=== PATIENT | female | born 1940 | race Caucasian/White ===

== ENCOUNTER → 2017-05-25 07:30 | Outpatient (CLI) | payer MEDICARE, SELFPAY ==
[2017-05-25 08:02] LABS: Hematocrit 37.3 % (37-47); Mean Corp Hgb Conc 32.2 g/gl (32-36); Mean Corpuscular Volume 96.4 fL (81-99); Mean Platelet Vol. 9.9 fl (6.2-12.0); Platelet Count 248 K/mm3 (150-450); RBC Distribution Width CV 14.9 % (11.6-14.6); RBC Distribution Width SD 50.6 fl (35.1-43.9); Red Blood Count 3.87 M/mm3 (4.2-5.4); White Blood Count 5.7 K/mm3 (4.4-11.0)
[2017-05-25 08:03] LABS: Scan Indicated on CBC? Y/N NO
[2017-05-25 08:14] LABS: Microalbumin,Random Urine 6.2 mg/L (NO RANGE EST.); Microalbumin:Creatinine Ratio 11.9 mg/g CRE (<30 mg/g CRE)
[2017-05-25 08:21] LABS: Cholesterol 111 mg/dL (200); High Density Lipoprotein 66 mg/dL; Triglycerides 55 mg/dL; Very Low Density Lipoprotein 11 mg/dL (5-40)
[2017-05-25 14:06] LABS: Hemoglobin A1c 7.3 % (4.2-6.3)
== END ==
PROVIDERS: Family Provider Student in an Organized Health Care Education/Training Program; PCP Student in an Organized Health Care Education/Training Program; Visit Provider Student in an Organized Health Care Education/Training Program
DX: Z79.899 Other long term (current) drug therapy (principal)
CPT/HCPCS: 36415; 80061; 82043; 82570; 83036; 85027

== ENCOUNTER → 2017-06-19 14:11 | Outpatient (CLI) | payer MEDICARE, SELFPAY ==
[2017-06-19 15:14] LABS: Hemoglobin A1c 7.2 % (4.2-6.3)
[2017-06-19 15:23] LABS: ALB/GLOB Ratio 0.9 RATIO (0.9-2.4); AST(SGOT) 20 U/L (15-37); Alanine Aminotransfer ALT/SGPT 19 U/L (13-56); Alkaline Phosphatase 87 U/L (45-117); Anion Gap 8 (5-15); BUN 24 mg/dL (7-18); BUN/Creat Ratio 23.5 RATIO (10-20); Calcium,Total 8.1 mg/dL (8.5-10.1); Chloride 108 mmol/L (98-107); Creatinine, Serum 1.02 mg/dL (0.55-1.02); EST Glomerular Filtration Rate 56 mL/min (>60); Est Glom Filt Rate - Afr Amer 68 mL/min (>60); Globulin 3.5 g/dL (2.2-4.2); Glucose 183 mg/dL (74-106); Potassium 4.1 mmol/L (3.5-5.1); Protein, Total 6.5 g/dL (6.4-8.2); Sodium Level 142 mmol/L (136-145); Thyroid Stim Hormone (TSH) 1.71 uIU/mL (0.358-3.74)
[2017-06-20 11:12] LABS: Cancer Antigen 125 369.4 U/mL (0.0-38.1)
== END ==
PROVIDERS: Nurse Practitioner; Family Provider Student in an Organized Health Care Education/Training Program; PCP Student in an Organized Health Care Education/Training Program; Visit Provider Obstetrics & Gynecology Gynecologic Oncology
DX: C56.1 Malignant neoplasm of right ovary (principal); C56.2 Malignant neoplasm of left ovary; E11.9 Type 2 diabetes mellitus without complications; E10.9 Type 1 diabetes mellitus without complications; E03.9 Hypothyroidism, unspecified
CPT/HCPCS: 36591; 80053; 83036; 84443; 86304; A4216

== ENCOUNTER → 2017-09-14 09:19 | Outpatient (CLI) | payer MEDICARE, SELFPAY ==
[2017-09-14 09:49] LABS: Absolute Lymphocyte Count 1.23 X10^3/ul (0.83-4.51); Absolute Neutrophil Count 3.2 X10^3/uL (2.0-7.7); Basophil# 0.02 X10^3/uL; Basophil% 0.4 % (0-1); Eosinophil# 0.13 X10^3/uL; Eosinophils% 2.6 % (0-5); Hemoglobin 12.3 g/dl (12.0-15.0); Lymphocyte # 1.23 X10^3/ul (4.0); Lymphocyte % 24.8 % (19-41); Mean Corp Hgb Conc 32.4 g/gl (32-36); Mean Corpuscular Hgb 31.4 pg (27.0-32.0); Mean Corpuscular Volume 96.9 fL (81-99); Mean Platelet Vol. 9.9 fl (6.2-12.0); Monocyte# 0.37 X10^3/uL; Monocyte% 7.5 % (0-10); Neutrophil % 64.5 % (47-70); Platelet Count 252 K/mm3 (150-450); RBC Distribution Width CV 14.6 % (11.6-14.6); RBC Distribution Width SD 49.8 fl (35.1-43.9); Red Blood Count 3.92 M/mm3 (4.2-5.4)
[2017-09-14 09:50] LABS: POSITIVE COUNT NO; POSITIVE DIFFERENTIAL NO; POSITIVE MORPHOLOGY NO
[2017-09-14 10:03] LABS: International Normalized Ratio 1.9; Prothrombin Time (Protime)PT. 21.5 SECONDS (11.7-14.9)
[2017-09-14 10:08] LABS: Hemoglobin A1c 6.8 % (4.2-6.3)
[2017-09-14 10:24] LABS: ALB/GLOB Ratio 0.8 RATIO (0.9-2.4); AST(SGOT) 19 U/L (15-37); Alanine Aminotransfer ALT/SGPT 18 U/L (13-56); Albumin, Serum 2.9 g/dL (3.2-5.0); Alkaline Phosphatase 82 U/L (45-117); Anion Gap 9 (5-15); BUN 18 mg/dL (7-18); BUN/Creat Ratio 17.8 RATIO (10-20); Calcium,Total 8.4 mg/dL (8.5-10.1); Chloride 110 mmol/L (98-107); Creatinine, Serum 1.01 mg/dL (0.55-1.02); EST Glomerular Filtration Rate 56 mL/min (>60); Est Glom Filt Rate - Afr Amer 68 mL/min (>60); Globulin 3.7 g/dL (2.2-4.2); Glucose 159 mg/dL (74-106); Magnesium 1.8 mg/dL (1.6-2.6); Potassium 4.1 mmol/L (3.5-5.1); Protein, Total 6.6 g/dL (6.4-8.2); Sodium Level 144 mmol/L (136-145)
[2017-09-14 12:45] LABS: Vitamin D,25 Hydroxy 106.9 ng/mL (29.95-100.01)
[2017-09-17 10:07] LABS: Cancer Antigen 125 44.3 U/mL (0.0-38.1)
== END ==
PROVIDERS: Nurse Practitioner; Family Provider Student in an Organized Health Care Education/Training Program; PCP Student in an Organized Health Care Education/Training Program; Visit Provider Student in an Organized Health Care Education/Training Program
DX: E10.9 Type 1 diabetes mellitus without complications (principal); E55.9 Vitamin D deficiency, unspecified; C56.1 Malignant neoplasm of right ovary; C56.2 Malignant neoplasm of left ovary; Z79.01 Long term (current) use of anticoagulants
CPT/HCPCS: 36591; 80053; 82306; 83036; 83735; 85025; 85610; 86304; A4216

== ENCOUNTER → 2017-10-12 09:20 | Outpatient (CLI) | payer MEDICARE, SELFPAY ==
[2017-10-12 09:52] LABS: Absolute Lymphocyte Count 1.22 X10^3/ul (0.83-4.51); Absolute Neutrophil Count 3.8 X10^3/uL (2.0-7.7); Basophil# 0.01 X10^3/uL; Basophil% 0.2 % (0-1); Eosinophil# 0.32 X10^3/uL; Eosinophils% 5.5 % (0-5); Hematocrit 38.3 % (37-47); Hemoglobin 12.1 g/dl (12.0-15.0); Lymphocyte # 1.22 X10^3/ul (4.0); Lymphocyte % 20.9 % (19-41); Mean Corp Hgb Conc 31.6 g/gl (32-36); Mean Corpuscular Hgb 30.6 pg (27.0-32.0); Mean Platelet Vol. 9.5 fl (6.2-12.0); Monocyte# 0.47 X10^3/uL; Neutrophil # 3.81 X10^3/uL (2.7-7.7); Neutrophil % 65.2 % (47-70); POSITIVE COUNT NO; POSITIVE DIFFERENTIAL NO; POSITIVE MORPHOLOGY NO; Platelet Count 200 K/mm3 (150-450); RBC Distribution Width CV 15.2 % (11.6-14.6); RBC Distribution Width SD 54.6 fl (35.1-43.9); Red Blood Count 3.95 M/mm3 (4.2-5.4); White Blood Count 5.8 K/mm3 (4.4-11.0)
[2017-10-12 10:25] LABS: ALB/GLOB Ratio 0.8 RATIO (0.9-2.4); AST(SGOT) 46 U/L (15-37); Alanine Aminotransfer ALT/SGPT 45 U/L (13-56); Albumin, Serum 2.8 g/dL (3.2-5.0); Alkaline Phosphatase 83 U/L (45-117); Anion Gap 6 (5-15); BUN 13 mg/dL (7-18); BUN/Creat Ratio 13.6 RATIO (10-20); Calcium,Total 8.5 mg/dL (8.5-10.1); Chloride 110 mmol/L (98-107); Creatinine, Serum 0.95 mg/dL (0.55-1.02); EST Glomerular Filtration Rate 60 mL/min (>60); Est Glom Filt Rate - Afr Amer 73 mL/min (>60); Globulin 3.6 g/dL (2.2-4.2); Glucose 110 mg/dL (74-106); Potassium 3.8 mmol/L (3.5-5.1); Protein, Total 6.4 g/dL (6.4-8.2); Sodium Level 147 mmol/L (136-145)
[2017-10-13 12:28] LABS: Cancer Antigen 125 34.3 U/mL (0.0-38.1)
== END ==
PROVIDERS: Family Provider Student in an Organized Health Care Education/Training Program; PCP Student in an Organized Health Care Education/Training Program
DX: C56.1 Malignant neoplasm of right ovary (principal); C56.2 Malignant neoplasm of left ovary
CPT/HCPCS: 36591; 80053; 83735; 85025; 86304; A4216

== ENCOUNTER → 2017-11-09 09:03 | Outpatient (CLI) | payer MEDICARE, SELFPAY ==
[2017-11-09 10:15] LABS: Absolute Lymphocyte Count 1.52 X10^3/ul (0.83-4.51); Absolute Neutrophil Count 4.9 X10^3/uL (2.0-7.7); Basophil# 0.02 X10^3/uL; Basophil% 0.3 % (0-1); Eosinophil# 0.28 X10^3/uL; Eosinophils% 3.9 % (0-5); Hematocrit 38.9 % (37-47); Hemoglobin 12.3 g/dl (12.0-15.0); Lymphocyte # 1.52 X10^3/ul (4.0); Mean Corp Hgb Conc 31.6 g/gl (32-36); Mean Corpuscular Hgb 29.9 pg (27.0-32.0); Mean Corpuscular Volume 94.6 fL (81-99); Mean Platelet Vol. 10.1 fl (6.2-12.0); Monocyte# 0.47 X10^3/uL; Monocyte% 6.5 % (0-10); Neutrophil # 4.93 X10^3/uL (2.7-7.7); Neutrophil % 68.2 % (47-70); Platelet Count 243 K/mm3 (150-450); RBC Distribution Width CV 15.2 % (11.6-14.6); RBC Distribution Width SD 52.5 fl (35.1-43.9); Red Blood Count 4.11 M/mm3 (4.2-5.4); White Blood Count 7.2 K/mm3 (4.4-11.0)
[2017-11-09 10:16] LABS: POSITIVE COUNT NO; POSITIVE DIFFERENTIAL NO; POSITIVE MORPHOLOGY NO
[2017-11-09 10:21] LABS: International Normalized Ratio 1.7; Prothrombin Time (Protime)PT. 20.1 SECONDS (11.7-14.9)
[2017-11-09 10:22] LABS: Color, Urine Yellow (Yellow); Glucose, Dipstick Normal (Normal); Ketone-Dipstick Negative (Negative); Leukocyte Esterase-Dipstick 25 /ul (Negative); Nitrite-Dipstick Negative (Negative); Occult Blood-Urine 50 /ul (Negative); Protein-Dipstick Negative (Negative); Specific Gravity, Urine 1.005 (1.002-1.030); Urine Bilirubin Dipstick Negative (Negative); Urine Clarity Clear (Clear); Urine Urobilinogen Normal (Normal)
[2017-11-09 10:32] LABS: ALB/GLOB Ratio 0.8 RATIO (0.9-2.4); AST(SGOT) 23 U/L (15-37); Alanine Aminotransfer ALT/SGPT 26 U/L (13-56); Alkaline Phosphatase 93 U/L (45-117); Anion Gap 7 (5-15); BUN 19 mg/dL (7-18); BUN/Creat Ratio 21.3 RATIO (10-20); Calcium,Total 8.6 mg/dL (8.5-10.1); Chloride 108 mmol/L (98-107); Creatinine, Serum 0.89 mg/dL (0.55-1.02); EST Glomerular Filtration Rate 65 mL/min (>60); Est Glom Filt Rate - Afr Amer 79 mL/min (>60); Globulin 3.9 g/dL (2.2-4.2); Glucose 93 mg/dL (74-106); Magnesium 1.7 mg/dL (1.6-2.6); Potassium 4.1 mmol/L (3.5-5.1); Protein, Total 6.9 g/dL (6.4-8.2); Sodium Level 144 mmol/L (136-145)
[2017-11-12 12:45] LABS: Cancer Antigen 125 33.4 U/mL (0.0-38.1)
== END ==
PROVIDERS: Family Provider Student in an Organized Health Care Education/Training Program; PCP Student in an Organized Health Care Education/Training Program; Visit Provider Nurse Practitioner Family
DX: C56.1 Malignant neoplasm of right ovary (principal); C56.2 Malignant neoplasm of left ovary; C48.2 Malignant neoplasm of peritoneum, unspecified
CPT/HCPCS: 36591; 80053; 81002; 83735; 85025; 85610; 86304; 87086; A4216

== ENCOUNTER → 2017-12-20 13:04 | Outpatient (CLI) | payer MEDICARE, SELFPAY ==
[2017-12-20 14:09] LABS: Absolute Lymphocyte Count 1.34 X10^3/ul (0.83-4.51); Absolute Neutrophil Count 4.8 X10^3/uL (2.0-7.7); Basophil# 0.02 X10^3/uL; Basophil% 0.3 % (0-1); Eosinophil# 0.27 X10^3/uL; Eosinophils% 3.9 % (0-5); Hematocrit 38.6 % (37-47); Hemoglobin 12.2 g/dl (12.0-15.0); Lymphocyte # 1.34 X10^3/ul (4.0); Lymphocyte % 19.4 % (19-41); Mean Corp Hgb Conc 31.6 g/gl (32-36); Mean Corpuscular Hgb 29.8 pg (27.0-32.0); Mean Corpuscular Volume 94.1 fL (81-99); Mean Platelet Vol. 10.7 fl (6.2-12.0); Monocyte# 0.51 X10^3/uL; Monocyte% 7.4 % (0-10); Neutrophil # 4.77 X10^3/uL (2.7-7.7); Neutrophil % 68.9 % (47-70); Platelet Count 264 K/mm3 (150-450); RBC Distribution Width SD 53.1 fl (35.1-43.9); White Blood Count 6.9 K/mm3 (4.4-11.0)
[2017-12-20 14:11] LABS: POSITIVE COUNT NO; POSITIVE DIFFERENTIAL NO; POSITIVE MORPHOLOGY NO
[2017-12-20 14:16] LABS: Color, Urine Yellow (Yellow); Glucose, Dipstick 50 mg/dl (Normal); Ketone-Dipstick Negative (Negative); Leukocyte Esterase-Dipstick 500 /ul (Negative); Nitrite-Dipstick Positive (Negative); Occult Blood-Urine 50 /ul (Negative); Protein-Dipstick 30 mg/dl (Negative); Urine Bilirubin Dipstick Negative (Negative); Urine Clarity Clear (Clear); Urine Urobilinogen 1 mg/dl (Normal)
[2017-12-20 14:27] LABS: International Normalized Ratio 1.7; Prothrombin Time (Protime)PT. 20.4 SECONDS (11.7-14.9)
[2017-12-20 14:32] LABS: Hemoglobin A1c 6.6 % (4.2-6.3)
[2017-12-20 14:33] LABS: Microalbumin,Random Urine 8.5 mg/L (NO RANGE EST.)
[2017-12-20 14:44] LABS: Vitamin D,25 Hydroxy 104.2 ng/mL (29.95-100.01)
[2017-12-20 14:46] LABS: ALB/GLOB Ratio 0.8 RATIO (0.9-2.4); AST(SGOT) 23 U/L (15-37); Alanine Aminotransfer ALT/SGPT 31 U/L (13-56); Alkaline Phosphatase 99 U/L (45-117); Anion Gap 6 (5-15); BUN 24 mg/dL (7-18); BUN/Creat Ratio 26.2 RATIO (10-20); Calcium,Total 8.6 mg/dL (8.5-10.1); Chloride 108 mmol/L (98-107); Creatinine, Serum 0.92 mg/dL (0.55-1.02); EST Glomerular Filtration Rate 63 mL/min (>60); Est Glom Filt Rate - Afr Amer 76 mL/min (>60); Globulin 3.8 g/dL (2.2-4.2); Glucose 142 mg/dL (74-106); Magnesium 1.8 mg/dL (1.6-2.6); Potassium 4.3 mmol/L (3.5-5.1); Protein, Total 6.8 g/dL (6.4-8.2); Sodium Level 141 mmol/L (136-145); Thyroid Stim Hormone (TSH) 0.76 uIU/mL (0.358-3.74)
[2017-12-25 11:35] LABS: Cancer Antigen 125 26.1 U/mL (0.0-38.1)
== END ==
PROVIDERS: Nurse Practitioner; Family Provider Student in an Organized Health Care Education/Training Program; PCP Student in an Organized Health Care Education/Training Program; Referring Provider Nurse Practitioner Family; Visit Provider Nurse Practitioner Family
DX: Z51.11 Encounter for antineoplastic chemotherapy (principal); E10.9 Type 1 diabetes mellitus without complications; E55.9 Vitamin D deficiency, unspecified; E03.9 Hypothyroidism, unspecified; I10 Essential (primary) hypertension; C48.2 Malignant neoplasm of peritoneum, unspecified; C56.1 Malignant neoplasm of right ovary; C56.2 Malignant neoplasm of left ovary
CPT/HCPCS: 36591; 80053; 81002; 82043; 82306; 82570; 83036; 83735; 84439; 84443; 85025; 85610; 86304; A4216

== ENCOUNTER → 2017-12-24 14:01 | Outpatient (CLI) | payer MEDICARE, SELFPAY ==
[2018-01-14 10:55] LABS: International Normalized Ratio 1.5; Prothrombin Time (Protime)PT. 18.3 SECONDS (11.7-14.9)
== END ==
PROVIDERS: Family Provider Student in an Organized Health Care Education/Training Program; PCP Student in an Organized Health Care Education/Training Program; Referring Provider Student in an Organized Health Care Education/Training Program; Visit Provider Student in an Organized Health Care Education/Training Program
DX: I26.99 Other pulmonary embolism 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 (principal); Z79.01 Long term (current) use of anticoagulants
CPT/HCPCS: 85610

== ENCOUNTER → 2017-12-31 14:18 | Outpatient (CLI) | payer MEDICARE, SELFPAY ==
[2017-12-31 16:02] LABS: Prothrombin Time (Protime)PT. 38.5 SECONDS (11.7-14.9)
[2017-12-31 16:24] LABS: International Normalized Ratio 3.9
== END ==
PROVIDERS: Family Provider Student in an Organized Health Care Education/Training Program; PCP Student in an Organized Health Care Education/Training Program; Referring Provider Student in an Organized Health Care Education/Training Program; Visit Provider Student in an Organized Health Care Education/Training Program
DX: I26.99 Other pulmonary embolism 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 (principal); Z79.01 Long term (current) use of anticoagulants
CPT/HCPCS: 85610

== ENCOUNTER → 2018-01-30 08:45 | Outpatient (CLI) | payer MEDICARE, SELFPAY ==
[2017-12-18 13:54] VITALS: BMI 33.1
[2018-01-30 09:34] LABS: Absolute Lymphocyte Count 1.76 X10^3/ul (0.83-4.51); Absolute Neutrophil Count 3.6 X10^3/uL (2.0-7.7); Basophil# 0.03 X10^3/uL; Basophil% 0.5 % (0-1); Eosinophil# 0.41 X10^3/uL; Eosinophils% 6.5 % (0-5); Hematocrit 38.1 % (37-47); Hemoglobin 12.2 g/dl (12.0-15.0); Lymphocyte # 1.76 X10^3/ul (4.0); Lymphocyte % 27.9 % (19-41); Mean Corpuscular Hgb 30.2 pg (27.0-32.0); Mean Corpuscular Volume 94.3 fL (81-99); Mean Platelet Vol. 10.4 fl (6.2-12.0); Monocyte# 0.49 X10^3/uL; Monocyte% 7.8 % (0-10); Neutrophil % 57.1 % (47-70); Platelet Count 266 K/mm3 (150-450); RBC Distribution Width CV 16.8 % (11.6-14.6); RBC Distribution Width SD 56.6 fl (35.1-43.9); Red Blood Count 4.04 M/mm3 (4.2-5.4); White Blood Count 6.3 K/mm3 (4.4-11.0)
[2018-01-30 09:36] LABS: Color, Urine Yellow (Yellow); Glucose, Dipstick Normal (Normal); Ketone-Dipstick Negative (Negative); Leukocyte Esterase-Dipstick 500 /ul (Negative); Nitrite-Dipstick Negative (Negative); Occult Blood-Urine 150 /ul (Negative); Protein-Dipstick 15 mg/dl (Negative); Urine Bilirubin Dipstick Negative (Negative); Urine Clarity Clear (Clear); Urine Urobilinogen Normal (Normal); Urine pH 6.5 (5.0 - 8.0)
[2018-01-30 09:44] LABS: ALB/GLOB Ratio 0.8 RATIO (0.9-2.4); AST(SGOT) 25 U/L (15-37); Alanine Aminotransfer ALT/SGPT 25 U/L (13-56); Albumin, Serum 2.8 g/dL (3.2-5.0); Alkaline Phosphatase 99 U/L (45-117); Anion Gap 7 (5-15); BUN 19 mg/dL (7-18); BUN/Creat Ratio 19.4 RATIO (10-20); Calcium,Total 8.3 mg/dL (8.5-10.1); Chloride 109 mmol/L (98-107); Creatinine, Serum 0.98 mg/dL (0.55-1.02); EST Glomerular Filtration Rate 58 mL/min (>60); Est Glom Filt Rate - Afr Amer 71 mL/min (>60); Globulin 3.7 g/dL (2.2-4.2); Glucose 112 mg/dL (74-106); Magnesium 1.8 mg/dL (1.6-2.6); POSITIVE COUNT NO; POSITIVE DIFFERENTIAL NO; POSITIVE MORPHOLOGY NO; Protein, Total 6.5 g/dL (6.4-8.2); Sodium Level 142 mmol/L (136-145)
[2018-01-30 10:04] LABS: International Normalized Ratio 2.8; Prothrombin Time (Protime)PT. 29.7 SECONDS (11.7-14.9)
[2018-01-31 08:29] LABS: Cancer Antigen 125 26.3 U/mL (0.0-38.1)
== END ==
PROVIDERS: Family Provider Student in an Organized Health Care Education/Training Program; PCP Student in an Organized Health Care Education/Training Program; Referring Provider Obstetrics & Gynecology Gynecologic Oncology; Visit Provider Obstetrics & Gynecology Gynecologic Oncology
DX: C48.2 Malignant neoplasm of peritoneum, unspecified (principal)
CPT/HCPCS: 36591; 80053; 81002; 83735; 85025; 85610; 86304; A4216

== ENCOUNTER → 2019-11-21 09:13 | Outpatient (CLI) | payer MEDICARE, SELFPAY ==
[2019-11-13 13:51] VITALS: BMI 32.5
[2019-11-21] MEDS: 0.9% Saline Lock 10 ML Syringe IV (09:27)
[2019-11-21] MEDS: 0.9 % NaCl (Sterile) Posiflush 10 mL IV (09:27)
[2019-11-21 09:46] LABS: Prothrombin Time (Protime)PT. 35.7 SECONDS (11.7-14.9)
[2019-11-21 09:53] LABS: International Normalized Ratio 3.6
== END ==
PROVIDERS: PCP Student in an Organized Health Care Education/Training Program; Referring Provider Nurse Practitioner Family; Visit Provider Nurse Practitioner Family
DX: I80.9 Phlebitis and thrombophlebitis of unspecified site (principal); Z79.01 Long term (current) use of anticoagulants
CPT/HCPCS: 36591; 85610; A4216

== ENCOUNTER → 2019-11-24 09:51 | Outpatient (CLI) | payer MEDICARE, SELFPAY ==
[2019-11-13 13:51] VITALS: BMI 32.5
[2019-11-24 10:06] LABS: Prothrombin Time Fingerstick 16.6 SEC (11.9-14.4)
== END ==
PROVIDERS: PCP Student in an Organized Health Care Education/Training Program; Referring Provider Student in an Organized Health Care Education/Training Program; Visit Provider Student in an Organized Health Care Education/Training Program
DX: I26.99 Other pulmonary embolism 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 (principal)
CPT/HCPCS: 36416; 85610

== ENCOUNTER → 2020-01-19 | Outpatient (CLI) | payer MEDICARE, SELFPAY ==
[2019-11-13 13:51] VITALS: BMI 32.5
[2020-01-19 11:48] LABS: Prothrombin Time (Protime)PT. 79.6 SECONDS (11.7-14.9)
[2020-01-19 13:03] LABS: International Normalized Ratio 9.7
== END | disposition home or self-care (01) ==
LOC: LABSPEC 11:25
PROVIDERS: PCP Student in an Organized Health Care Education/Training Program; Referring Provider Student in an Organized Health Care Education/Training Program; Visit Provider Student in an Organized Health Care Education/Training Program
DX: I26.99 Other pulmonary embolism 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 (principal)
CPT/HCPCS: 85610

== ENCOUNTER 2020-01-28 11:13 | Outpatient (RCR) | payer MEDICARE, SELFPAY ==
[2019-11-13 13:51] VITALS: BMI 32.5
[2020-01-21 12:11] LABS: Prothrombin Time (Protime)PT. 52.3 SECONDS (11.7-14.9)
[2020-01-21 12:21] LABS: International Normalized Ratio 5.8
[2020-01-23 12:36] LABS: Prothrombin Time Fingerstick 26.5 SEC (11.9-14.4)
[2020-01-28 11:21] LABS: Prothrombin Time Fingerstick 15.8 SEC (11.9-14.4)
== END 2020-01-28 18:00 | disposition home or self-care (01) ==
LOC: LAB 11:13
PROVIDERS: PCP Student in an Organized Health Care Education/Training Program; Visit Provider Student in an Organized Health Care Education/Training Program
DX: Z79.01 Long term (current) use of anticoagulants (principal)
CPT/HCPCS: 36415; 36416; 85610

== ENCOUNTER → 2020-03-15 | Outpatient (CLI) | payer MEDICARE, SELFPAY ==
[2020-02-12 11:05] VITALS: BMI 27.9
[2020-03-15 12:24] LABS: International Normalized Ratio 8.4
[2020-03-15 12:39] LABS: Prothrombin Time (Protime)PT. 70.5 SECONDS (11.7-14.9)
== END | disposition home or self-care (01) ==
LOC: LABSPEC 11:36
PROVIDERS: PCP Student in an Organized Health Care Education/Training Program; Referring Provider Student in an Organized Health Care Education/Training Program; Visit Provider Student in an Organized Health Care Education/Training Program
DX: I26.99 Other pulmonary embolism 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 (principal)
CPT/HCPCS: 85610

== ENCOUNTER → 2020-03-16 09:26 | Outpatient (CLI) | payer MEDICARE, SELFPAY ==
[2020-02-12 11:05] VITALS: BMI 27.9
[2020-03-16 09:47] LABS: International Normalized Ratio 6.5; Prothrombin Time (Protime)PT. 57.5 SECONDS (11.7-14.9)
== END ==
PROVIDERS: PCP Student in an Organized Health Care Education/Training Program; Referring Provider Student in an Organized Health Care Education/Training Program; Visit Provider Student in an Organized Health Care Education/Training Program
DX: I26.99 Other pulmonary embolism 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 (principal)
CPT/HCPCS: 85610

== ENCOUNTER 2020-04-08 15:50 | Outpatient (RCR) | payer MEDICARE, SELFPAY ==
[2020-02-12 11:05] VITALS: BMI 27.9
== END 2020-04-08 23:59 ==
LOC: IMMUN 15:50
PROVIDERS: PCP Student in an Organized Health Care Education/Training Program; Visit Provider Family Medicine
DX: Z23 Encounter for immunization (principal)
CPT/HCPCS: 0011A; 0012A; 91301

== ENCOUNTER → 2020-07-20 13:55 | Outpatient (CLI) | payer MEDICARE, SELFPAY ==
[2020-05-14 13:04] VITALS: BMI 28.2
== END ==
PROVIDERS: PCP Student in an Organized Health Care Education/Training Program; Referring Provider Nurse Practitioner Family; Visit Provider Nurse Practitioner Family
DX: C56.1 Malignant neoplasm of right ovary (principal); C56.2 Malignant neoplasm of left ovary; R97.1 Elevated cancer antigen 125 [CA 125]

== ENCOUNTER 2023-10-21 10:08 | Emergency (ER) | payer MEDICARE, SELFPAY ==
[2023-10-21 10:09] VITALS: BP 132/55; PULSE 83; RESP 16; TEMP 36.4; O2SAT 97; BMI 28.3
--- NOTE | 2023-10-21 10:54 | ED.VIS.LOWEX ---
HPI History of Present Illness HPI Narrative: Patient presents with right hip pain that has been getting worse over the past 3 days. Patient states that it she bumped her right hip on a door jam 1 to 2 weeks ago. Patient denies any recent trauma. Patient states her pain is gradually getting worse. Patient describes it as aching. Patient states it is worse with weightbearing. Patient denies any paresthesias or weakness. Patient states nothing seems to help with her pain. 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 Thyroid disease Carpal tunnel syndrome Cataracts, bilateral Cancer Hx of blood clots Bone fracture Back problem Arthritis Diabetes type 1, controlled Home Medications ?Medication ?Instructions ?Recorded ?Last Taken ?Type atorvastatin 10 mg tablet 10 mg PO DAILY 04/07/16 04/06/16 18:00 History 10 MG valsartan 80 mg tablet 80 mg PO DAILY 04/07/16 04/06/16 18:00 History 80 MG coenzyme Q10 200 mg capsule (Co 200 mg PO DAILY 08/21/19 Unknown History Q-10) vitamin B comp and C no.3 15 mg-10 1 cap PO DAILY 08/21/19 Unknown History mg-50 mg-5 mg-300 mg capsule (B Complex Plus Vitamin C) estradiol 0.01% (0.1 mg/gram) 1 g vaginal DAILY 05/14/20 Unknown History vaginal cream levothyroxine 112 mcg tablet 112 mcg PO DAILY 10/28/20 Unknown History ergocalciferol (vitamin D2) 1,250 50,000 unit PO QWEEK 01/16/22 Unknown History mcg (50,000 unit) capsule blood sugar diagnostic (Accu-Chek #100 ea 05/04/22 Unknown Rx Guide test strips) lancing device with lancets kit #100 ea 05/04/22 Unknown Rx (Accu-Chek FastClix Lancing Device kit) mecobalamin (vitamin B12) 10,000 mcg IM MONTHLY 09/18/22 Unknown History mcg solution for injection alcohol swabs (Alcohol Prep Pads) 1 pad topical DAILY #200 ea 03/19/23 Unknown Rx oxybutynin chloride 5 mg 5 mg PO DAILY 03/19/23 Unknown History tablet,extended release 24 hr warfarin 1 mg tablet 1 mg PO .WENFRI 03/19/23 Unknown History warfarin 2 mg tablet 2 mg PO DAILY 03/19/23 Unknown History Lyumjev U-100 Insulin 100 unit/mL 90 unit (0.9 mL) subcut DAILY #80 09/25/23 Unknown Rx subcutaneous solution (insulin mL lispro-aabc) metoprolol succinate 25 mg 25 mg PO DAILY 09/25/23 Unknown History tablet,extended release 24 hr tramadol 50 mg tablet 50 mg PO Q4H PRN PRN Pain 3 days 10/21/23 Unknown Rx #20 tabs Allergy/AdvReac Type Severity Reaction Status Date / Time acetaminophen (From Percocet) Allergy Unknown Verified 10/21/23 10:18 Anesthetics - Amide Type - Allergy NEEDS Verified 10/21/23 10:18 Select A FOLLOW-UP Anesthetics - Kalie Type- Allergy NEEDS Verified 10/21/23 10:18 Parabens FOLLOW-UP codeine Allergy Unknown Verified 10/21/23 10:18 meperidine (From Demerol) Allergy Unknown Verified 10/21/23 10:18 midazolam HCl (From Versed) Allergy Unknown Verified 10/21/23 10:18 oxycodone (From Percocet) Allergy Unknown Verified 10/21/23 10:18 Family History Mother Breast cancer Father Heart disease Surgical History H/O ultrasound guided needle biopsy S/P skin biopsy History of total abdominal hysterectomy H/O colonoscopy H/O umbilical hernia repair Hx of cataract surgery History of carpal tunnel surgery H/O: Hx of appendectomy History of tonsillectomy Social History Smoking Status: Former smoker second hand exposure: No alcohol intake: never substance use type: does not use ROS ROS ED Constitutional Constitutional ED: Denies chills or fever(s) Eyes Eyes: Denies blurry vision or change in vision ENT ENT ED: Denies rhinorrhea or sore throat Cardiovascular Cardiovascular: Denies chest pain or palpitations Respiratory/Chest Respiratory/Chest: Denies cough or dyspnea Gastrointestinal Gastrointestinal: Denies nausea or vomiting Genitourinary Genitourinary ED: Denies dysuria or hematuria Musculoskeletal Musculoskeletal: Reports neck pain; Denies back pain Integumentary Denies abscess or rash Neurologic Neurologic: Denies headache(s) or weakness Allergic/Immunologic Allergic/Immunologic ED: Denies mouth swelling or urticaria EXAM Physical Exam Const Vital Signs: 10/21/23 10:09 10/21/23 12:08 Temperature 97.6 F L Temperature Source Temporal Pulse Rate 83 89 Respiratory Rate 16 16 Blood Pressure 132/55 H 159/69 H Blood Pressure Mean 80 99 Pulse Ox 97 98 Oxygen Delivery Method Room Air Room Air Positive well nourished and well developed General Appearance ED: well developed and NAD HEENT Reports moist mucous membranes Neck full ROM and supple Extremity Extremity Narrative: There is tenderness to palpation of the anterior and lateral aspects of the right hip. There is no obvious deformity noted. Range of motion was limited in all motions of the right hip secondary to pain. Sensation was intact to light touch bilaterally in the lower extremities. Strength is 5/5 bilateral in the lower extremities. Neuro oriented x3, CN's II-XII intact bilaterally, moves all extremities and no sensory deficits noted Sensorium / Orientation: alert Motor Exam: strength 5/5 throughout Psych mental status grossly normal MDM MDM MDM Narrative Medical decision making narrative: Differential diagnosis includes occult fracture, muscle strain, tendinitis, and contusion. X-rays of the right hip will be obtained to assess for occult fracture. Radiography Diagnostic Testing: Clinical Impression(s) from Imaging Studies Hip/Pelvis X-Ray 10/21/23 10:59 IMPRESSION: Degenerative changes of the hips. Atherosclerosis. Electronically Signed: Ciera Sweeney MD at 11:36 EDT , X-rays of the right hip were obtained. There are 3 views. On my independent interpretation, there is no acute fracture. There are degenerative changes noted. Radiologist also interpreted the x-rays and agrees. Treatment and Re-Evaluation Narrative: Patient was ordered a dose of Crosby here. However, patient refused this. Patient has had intolerance with codeine and oxycodone in the past. Patient was given a dose of tramadol. Patient was given a prescription for tramadol. Patient was instructed to use ice to the area. Patient was instructed to use her walker. Patient was instructed to follow-up with her primary care physician in 5 to 7 days. Patient was also given a referral for orthopedics. The patient and family understood and were agreeable with the plan. All questions were answered. Discharge Plan Triage Chief Complaint: Lower Extremity Injury ED Provider: Dwight Gomez Dx/Rx/DC Orders Clinical Impression: Hip pain, right, Type 1 diabetes mellitus, with long-term current use of insulin Instructions: ED Arthralgia, ED Hip Strain Prescriptions: New tramadol 50 mg tablet 50 mg PO Q4H PRN PRN (Reason: Pain) 3 Days Qty: 20 0RF No Action warfarin 2 mg tablet 2 mg PO DAILY warfarin 1 mg tablet 1 mg PO .WENFRI coenzyme Q10 [Co Q-10] 200 mg capsule 200 mg PO DAILY B Complex Plus Vitamin C 77-53-41-5-300 mg capsule 1 cap PO DAILY Rx Instructions: give with food (meal/snack) estradiol 0.01 % (0.1 mg/gram) cream 1 g VAGINAL DAILY metoprolol succinate 25 mg tablet extended release 24 hr 25 mg PO DAILY levothyroxine 112 mcg tablet 112 mcg PO DAILY mecobalamin (vitamin B12) 10,000 mcg recon soln IM MONTHLY oxybutynin chloride 5 mg tablet extended release 24hr 5 mg PO DAILY alcohol swabs [Alcohol Prep Pads] Pads, Medicated 1 pad topical DAILY Qty: 200 3RF Lyumjev U-100 Insulin 100 unit/mL solution 90 unit subcut DAILY Qty: 80 3RF atorvastatin 10 MG tablet 10 mg PO DAILY Patient Comments: CHOLESTEROL valsartan 80 MG tablet 80 mg PO DAILY Patient Comments: Blood Pressure ergocalciferol (vitamin D2) 1,250 mcg (50,000 unit) capsule 50,000 unit PO QWEEK Patient Comments: Supplement (DME) Accu-Chek Guide test strips Strip See Rx Instructions .Route Qty: 100 11RF Rx Instructions: TID (DME) lancing device with lancets [Accu-Chek FastClix Lancing Dev] Kit See Rx Instructions .Route Qty: 100 11RF Rx Instructions: TID Primary Care Provider: Melchor Washington Referrals: Melchor Washington DO [Primary Care Provider] - Print Language: Georgian Disposition Disposition: Home, Self Care
--- NOTE | 2023-10-21 10:59 | RAD_ITS ---
INDICATION: Injury/Pain EXAMINATION/TECHNIQUE: X-RAY - XR Hip Unilateral with Pelvis when performed; 2-3 Views COMPARISON: No relevant prior comparison study available FINDINGS: PELVIC BONES: No displaced fracture, destructive or sclerotic lesions. Note that overlapping bowel shadows may however obscure fine detail. Sacroiliac joints are unremarkable. No widening of the pubic symphysis. HIPS: There are bilateral degenerative changes of the hips. SOFT TISSUES: There are vascular calcifications. RAD/HIP, UNI W/ Pelvis 2-3 Views IMPRESSION: Degenerative changes of the hips. Atherosclerosis. Electronically Signed: Ciera Sweeney MD at 11:36 EDT ,
[2023-10-21 12:08] VITALS: BP 159/69; PULSE 89; RESP 16; O2SAT 98
[2023-10-21] MEDS: traMADol 50 MG Tablet PO (12:57)
[2023-10-21 13:00] VITALS: BP 151/73; PULSE 82; RESP 16; TEMP 36.2; O2SAT 98
== END 2023-10-21 13:09 | disposition home or self-care (01) ==
PROVIDERS: Emergency Provider Emergency Medicine; PCP Student in an Organized Health Care Education/Training Program; Visit Provider Emergency Medicine
DX: M25.551 Pain in right hip (principal); Z79.4 Long term (current) use of insulin; E10.9 Type 1 diabetes mellitus without complications; E78.2 Mixed hyperlipidemia; Z87.891 Personal history of nicotine dependence; W22.09XA Striking against other stationary object, initial encounter; M54.2 Cervicalgia
CPT/HCPCS: 73502; 99283

== ENCOUNTER 2024-10-10 17:20 | Inpatient (IN) | payer MEDICARE, SELFPAY ==
[2024-10-10 17:21] VITALS: BP 133/58; PULSE 99; RESP 16; TEMP 36.9; O2SAT 100
--- NOTE | 2024-10-10 17:40 | EDS_ITS ---
HPI HPI - GI History of Present Illness Chief Complaint: Abd Pain Detail of Chief Complaint: Abdominal pain Informant: patient Narrative Narrative: Patient presents the emergency department complaint of abdominal pain is started 2 months ago. Patient states the pains got worse over the last week. She has had nausea. She had a CT scan of the abdomen pelvis done today as an outpatient and was called at home and told that she had some abnormalities that needed to be addressed that she needed to go to the emergency department at [facility]. Patient wanted to come to our facility instead and be treated. The daughter is not sure exactly what the abnormality was but said something about a blockage and possibility of decreased blood flow to the bowel or infection. Patient denies fever at home. She has had some intermittent diarrhea. She has had decreased p.o. intake with nausea. She also has history of peritoneal cancer with frequent recurrences and states that her CA125 keeps going up. She sees a specialist at [facility] for her peritoneal cancer. 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 Thyroid disease Carpal tunnel syndrome Cataracts, bilateral Cancer Hx of blood clots Bone fracture Back problem Arthritis Diabetes type 1, controlled Home Medications ?Medication ?Instructions ?Recorded ?Last Taken ?Type atorvastatin 10 mg tablet 10 mg PO DAILY 04/07/16/08/26 18:00 History 10 MG coenzyme Q10 200 mg capsule (Co 200 mg PO DAILY Unknown History Q-10) vitamin B comp and C no.3 15 mg-10 1 cap PO DAILY 08/10 03/31 Unknown History mg-50 mg-5 mg-300 mg capsule (B Complex Plus Vitamin C) levothyroxine 112 mcg tablet 112 mcg PO DAILY 10/28/20 Unknown History ergocalciferol (vitamin D2) 1,250 50,000 unit PO MOWE 01/16/22 Unknown History mcg (50,000 unit) capsule blood sugar diagnostic (Accu-Chek #100 ea 05/04/22 Unk nown Rx Guide test strips) lancing device with lancets kit #100 ea 05/04/22 Unkno wn Rx (Accu-Chek FastClix Lancing Device kit) mecobalamin (vitamin B12) 10,000 10,000 mcg IM MONTHLY 09/18/22 Unknown History mcg solution for injection alcohol swabs (Alcohol Prep Pads) 1 pad topical DAILY #200 ea 03/19/23 Unknown Rx warfarin 2 mg tablet 2 mg PO DAILY 03/19/23 Unkno wn History metoprolol succinate 25 mg 25 mg PO DAILY 09/25/23 Unk nown History tablet,extended release 24 hr valsartan 80 mg tablet 80 mg PO DAILY 04/03/24 Unkn own History insulin lispro-aabc 100 unit/mL See Rx Instructions lucio bcut DAILY 10/10/24 Unknown History subcutaneous solution (Lyumjev U-100 Insulin) Allergy/AdvReac Type Severity Reaction Status Date / Time acetaminophen (From Percocet) Allergy Unknown Verified 10/10/24 17:24 Anesthetics - Amide Type - Allergy NEEDS Verified 10/10/24 17:24 Select A FOLLOW-UP Anesthetics - Kalie Type- Allergy NEEDS Verified 10/10/24 17:24 Parabens FOLLOW-UP codeine Allergy Unknown Verified 10/10/24 17:24 meperidine (From Demerol) Allergy Unknown Verified 10/10/24 17:24 midazolam HCl (From Versed) Allergy Unknown Verified 10/10/24 17:24 oxycodone (From Percocet) Allergy Unknown Verified 10/10/24 17:24 Family History Mother Breast cancer Father Heart disease Surgical History H/O ultrasound guided needle biopsy S/P skin biopsy History of total abdominal hysterectomy H/O colonoscopy H/O umbilical hernia repair Hx of cataract surgery History of carpal tunnel surgery H/O: Hx of appendectomy History of tonsillectomy Social History Smoking Status: Former smoker second hand exposure: No alcohol intake: never substance use type: does not use ROS ROS ED Review of Systems ROS Unobtainable: other Constitutional Constitutional ED: Reports lethargy; Denies chills, fever(s), sweats or weight loss Eyes Eyes: Denies blurry vision, change in vision or diplopia ENT ENT ED: Denies rhinorrhea or sore throat Cardiovascular Cardiovascular: Denies chest pain, orthopnea or racing heartbeat Respiratory/Chest Respiratory/Chest: Denies cough, dyspnea, dyspnea on exertion, orthopnea or sputum Gastrointestinal Gastrointestinal: Reports abdominal pain and nausea; Denies diarrhea or vomiting Genitourinary Genitourinary ED: Denies dysuria, hematuria or urinary frequency Musculoskeletal Musculoskeletal: Denies arthralgias, back pain, myalgias or neck pain Integumentary Denies abscess, Abrasions or rash Neurologic Neurologic: Denies headache(s) or weakness Psychiatric Psychiatric: Denies anxiety, depression or suicidal thoughts Endocrine Endocrinology: Denies polydipsia, polyphagia or polyuria Hematologic/Lymphatic Hematologic/Lymphatic: Denies easy bleeding, easy bruising or lymphadenopathy Allergic/Immunologic Allergic/Immunologic ED: Denies mouth swelling, tongue swelling or urticaria EXAM Physical Exam Const Vital Signs: 10/10/24 17:21 10/10/24 19:00 10/10/24 19:00 Temperature 98.5 F 99.1 F 99.1 F Temperature Source Oral Oral Pulse Rate 99 89 89 Respiratory Rate 16 16 16 Blood Pressure 133/58 H 122/56 H 122/56 H Blood Pressure Mean 83 78 78 Pulse Ox 100 99 98 Oxygen Delivery Method Room Air Room Air Positive well nourished and well developed General Appearance ED: well developed and NAD HEENT Reports TM's clear and moist mucous membranes normocephalic and atraumatic; Negative for trauma or tenderness Tympanic Membrane ED: Yes TM's clear Eyes PERRL and EOMs intact bilaterally General Eye ED: Negative for pale conjunctiva or scleral icterus Neck no lymphadenopathy, supple and no JVD General: Negative for tenderness Chest Wall inspection of chest normal and palpation of chest normal Chest: Negative for tenderness Resp normal respiratory effort and clear to auscultation bilaterally Effort and Inspection: Negative for respiratory distress or pain with movement Auscultation: Negative for rhonchi, wheezes or diminished lung sounds Cardio regular rate, regular rhythm, S1 normal heart sound, S2 normal heart sound and no murmurs Peripheral Pulses: pulses 2+ throughout GI normal to inspection, nondistended, normoactive bowel sounds, soft to palpation, non-distended and no masses GI Narrative: Diffuse tenderness to palpation. There is guarding. There is mild rebound. No rigidity. Back/Spine no CVA tenderness and no thoracic nor lumbar tenderness Extremity normal to inspection General Extremety ED: Negative for edema General Extremity: Negative for edema Neuro oriented x3, CN's II-XII intact bilaterally, no sensory deficits noted and gait normal Sensorium / Orientation: awake, alert, oriented to person, oriented to place and oriented to time Motor Exam: strength 5/5 throughout and strength abnormal Psych mental status grossly normal Skin no rashes or lesions noted and no wounds MDM MDM MDM Narrative Medical decision making narrative: Patient presents with ongoing abdominal pain for over 2 months. Pain worse over the last week. Had outpatient CT today that showed thickening of the sigmoid colon which could be inflammatory versus infectious versus ischemic. No diverticulitis. Patient also had a 1.8 cm necrotic area in the lower left lower abdomen that could be fat necrosis versus a metastasis. Patient does have known history of peritoneal cancer. CBC with differential white count 11.7 with hemoglobin 11.9 platelet count of 245. Chemistries unremarkable. Lactate was normal at 1.3. LFTs were normal. Urinalysis without signs of infection. Discussed results with general surgeon on-call who recommended admission to medicine and possibly GI consult. There was nothing surgical and currently patient does not have an acute abdomen. Discussed with hospitalist will evaluate patient for admission for colitis. I did start her on Zosyn IV. Lab Data Attestation: I reviewed the patient's lab results. Labs: Laboratory Results - last 24 hr 10/10/24 10/10/24 17:52 18:24 WBC 11.7 H RBC 3.94 L Hgb 11.9 L Hct 36.6 L MCV 92.9 MCH 30.2 MCHC 32.5 RDW Std Deviation 56.8 H RDW Coeff of Devante 16.6 H Plt Count 245 MPV 10.3 Immature Gran % (Auto) 0.300 Neut % (Auto) 79.3 H Lymph % (Auto) 10.9 L Lares % (Auto) 7.0 Eos % (Auto) 2.0 Baso % (Auto) 0.5 Absolute Neuts (auto) 9.3 H Absolute Lymphs (auto) 1.28 Nucleated RBC % 0 Sodium 134 Potassium 4.0 Chloride 100 Carbon Dioxide 21.6 Anion Gap 12 BUN 26 H Creatinine 1.10 Est GFR (MDRD) Non-Af 50 L BUN/Creatinine Ratio 23.8 H Glucose 218 H Lactic Acid 1.3 Calcium 8.2 Total Bilirubin 1.44 H AST 18 ALT 9 Alkaline Phosphatase 83 Total Protein 6.0 Albumin 3.0 L Globulin 3.0 Albumin/Globulin Ratio 1.0 Lipase 7 L Urine Color Yellow Urine Clarity Clear Urine pH 5.0 Ur Specific [place] 1.010 Urine Protein 30 H Urine Glucose (UA) 250 H Urine Ketones 15 H Urine Occult Blood 250 H Urine Nitrite Negative Urine Bilirubin Negative Urine Urobilinogen 1 H Ur Leukocyte Esterase 100 H Urine RBC 0-5 SEEN Urine WBC 5-10 SEEN Ur Squamous Epith Cells 0-5 SEEN Urine Bacteria 0 SEEN Urine Mucus 0 SEEN Discharge Plan Triage Chief Complaint: Abd Pain ED Provider: Alejandra Jackson Dx/Rx/DC Orders Clinical Impression: Abdominal pain, Colitis Prescriptions: No Action warfarin 2 mg tablet 2 mg PO DAILY coenzyme Q10 [Co Q-10] 200 mg capsule 200 mg PO DAILY B Complex Plus Vitamin C 03-75-17-5-300 mg capsule 1 cap PO DAILY Rx Instructions: give with food (meal/snack) metoprolol succinate 25 mg tablet extended release 24 hr 25 mg PO DAILY levothyroxine 112 mcg tablet 112 mcg PO DAILY mecobalamin (vitamin B12) 10,000 mcg recon soln 10,000 mcg IM MONTHLY alcohol swabs [Alcohol Prep Pads] Pads, Medicated 1 pad topical DAILY Qty: 200 3RF atorvastatin 10 MG tablet 10 mg PO DAILY Patient Comments: CHOLESTEROL ergocalciferol (vitamin D2) 1,250 mcg (50,000 unit) capsule 50,000 unit PO MOWE Patient Comments: Supplement valsartan 80 mg tablet 80 mg PO DAILY Patient Comments: Blood Pressure Lyumjev U-100 Insulin 100 unit/mL solution See Rx Instructions subcut DAILY Rx Instructions: sliding scale subcutaneously daily; (DME) Accu-Chek Guide test strips Strip See Rx Instructions .Route Qty: 100 11RF Rx Instructions: TID (DME) lancing device with lancets [Accu-Chek FastClix Lancing Dev] Kit See Rx Instructions .Route Qty: 100 11RF Rx Instructions: TID Primary Care Provider: Melchor Washington Referrals: Melchor Washington DO [Primary Care Provider] - Print Language: Swedish Disposition Disposition: Acute Care Hospital [facility]
[2024-10-10] MEDS: 0.9% Normal Saline (1000mL) 1,000 ML 150 ML IV (17:50)
[2024-10-10 18:00] LABS: Hematocrit 36.6 % (37-47); Hemoglobin 11.9 g/dL (12.0-15.0); Immature Granulocytes Count 0.040 X10^3/uL (0.0-0.0); Mean Corp Hgb Conc 32.5 g/dL (32-36); Mean Corpuscular Volume 92.9 fL (81-99); Mean Platelet Vol. 10.3 fl (6.2-12.0); NRBC Flagged by Analyzer 0 % (0-5); Platelet Count 245 K/mm3 (150-450); RBC Distribution Width CV 16.6 % (11.6-14.6); RBC Distribution Width SD 56.8 fl (35.1-43.9); Red Blood Count 3.94 M/mm3 (4.2-5.4); White Blood Count 11.7 K/mm3 (4.4-11.0)
[2024-10-10 18:21] LABS: AST(SGOT) 18 U/L (<=31); Alanine Aminotransfer ALT/SGPT 9 U/L (<=34); Albumin, Serum 3.0 g/dL (3.4-4.8); Alkaline Phosphatase 83 U/L (35-104); Anion Gap 12 (5-15); BUN 26 mg/dL (4-19); BUN/Creat Ratio 23.8 RATIO (10-20); Calcium,Total 8.2 mg/dL (7.6-11.0); Carbon Dioxide 21.6 mmol/L (21.0-32.0); Chloride 100 mmol/L (98-108); Globulin 3.0 g/dL (2.2-4.2); Glucose 218 mg/dL (70-99); Lipase 7 U/L (13-75); Potassium 4.0 mmol/L (3.3-5.1)
[2024-10-10 18:30] LABS: Mucous, Urine 0 SEEN /hpf (<or=2+)
[2024-10-10 18:32] LABS: Color, Urine Yellow (Yellow); Glucose, Dipstick 250 mg/dl (Normal); Ketone-Dipstick 15 mg/dl (Negative); Leukocyte Esterase-Dipstick 100 /ul (Negative); Nitrite-Dipstick Negative (Negative); Occult Blood-Urine 250 /ul (Negative); Protein-Dipstick 30 mg/dl (Negative); Specific Gravity, Urine 1.010 (1.002-1.030); Urine Bilirubin Dipstick Negative (Negative)
[2024-10-10 18:49] LABS: Red Blood Cells-Urine 0-5 SEEN /hpf (0-5); Squamous Epithelial Cells - UA 0-5 SEEN /hpf (5-10)
[2024-10-10 19:00] VITALS: BP 122/56; PULSE 89; RESP 16; TEMP 37.3; O2SAT 98; O2SAT 99
[2024-10-10] MEDS: Piperacil/Tazobactam 4.5 GM in 0.9% Normal Saline (100mL MB+) 100 ML IV (19:38)
[2024-10-10 20:00] VITALS: BP 137/55; PULSE 86; RESP 18; TEMP 37.3; O2SAT 100
--- NOTE | 2024-10-10 20:00 | PCM.HP.STD ---
HPI - General General Date of Admission: 10/10/24 Date of Service: 10/10/24 Chief Complaint: Worsening abdominal pain HPI Narrative ALMA AZUL, is a 84 F who presented to [facility] ED on 10/10/2024 with worsening abdominal pain. Patient lives at home with her . Medical history significant for peritoneal cancer and she follows with a specialist at [facility] [place] for [place]. She was initially diagnosed back in 2008 and has had recurrences and gone through several rounds of chemotherapy. Completed last round of chemotherapy back in 2021 and has not seen her cancer doctor at [facility] since then. Medical history otherwise significant for well-controlled type 1 diabetes mellitus on insulin pump, history of DVT, hypertension and hypothyroidism. She reports intermittent abdominal pain for the past few months. It has worsened significantly over the past week or so. She had a CT abdomen pelvis done outpatient this morning with radiology read that noted circumferential thickening in the descending colon most consistent with colitis and significant calcification of the superior mesenteric artery. Notably did not show any evidence of new or recurrent cancer. Given concern for colitis possibly due to mesenteric ischemia, patient was sent to the ED for further evaluation. In the ED she was hemodynamically stable on room air at rest. Labs notable for WBC count 11.7, hemoglobin 11.9 (at baseline), T. bili 1.44, and INR 12.5. Patient is on Coumadin and has had supratherapeutic INR values in the past as well. Patient has had a few episodes of diarrhea over the past few days but denies any dark or bloody stools. Given these findings, hospitalist was contacted for admission. I saw the patient at bedside in the ED. Patient was sitting at the bedside chair and appeared mildly fatigued, but she was mentally sharp and provided a good history. States she has not been eating much over the past month or 2. She denies any pain after eating but does often feel nauseous with eating will occasionally have episodes of vomiting. Patient denies any other acute concerns currently. Will be admitted for further management. 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 Thyroid disease Carpal tunnel syndrome Cataracts, bilateral Cancer Hx of blood clots Bone fracture Back problem Arthritis Diabetes type 1, controlled Home Medications ?Medication ?Instructions ?Recorded ?Last Taken ?Type atorvastatin 10 mg tablet 10 mg PO DAILY 04/07/16 04/06/16 18:00 History 10 MG coenzyme Q10 200 mg capsule (Co 200 mg PO DAILY 08/21/19 Unknown History Q-10) vitamin B comp and C no.3 15 mg-10 1 cap PO DAILY 08/21/19 Unknown History mg-50 mg-5 mg-300 mg capsule (B Complex Plus Vitamin C) levothyroxine 112 mcg tablet 112 mcg PO DAILY 10/28/20 Unknown History ergocalciferol (vitamin D2) 1,250 50,000 unit PO MOWE 01/16/22 Unknown History mcg (50,000 unit) capsule blood sugar diagnostic (Accu-Chek #100 ea 05/04/22 Unknown Rx Guide test strips) lancing device with lancets kit #100 ea 05/04/22 Unknown Rx (Accu-Chek FastClix Lancing Device kit) mecobalamin (vitamin B12) 10,000 10,000 mcg IM MONTHLY 09/18/22 Unknown History mcg solution for injection alcohol swabs (Alcohol Prep Pads) 1 pad topical DAILY #200 ea 03/19/23 Unknown Rx warfarin 2 mg tablet 2 mg PO DAILY 03/19/23 Unknown History metoprolol succinate 25 mg 25 mg PO DAILY 09/25/23 Unknown History tablet,extended release 24 hr valsartan 80 mg tablet 80 mg PO DAILY 04/03/24 Unknown History Tylenol pm PO .HS PRN sleep/pain 10/10/24 10/09/24 History insulin lispro-aabc 100 unit/mL See Rx Instructions subcut DAILY 10/10/24 Unknown History subcutaneous solution (Lyumjev U-100 Insulin) Allergy/AdvReac Type Severity Reaction Status Date / Time acetaminophen (From Percocet) Allergy Unknown Verified 10/10/24 17:24 Anesthetics - Amide Type - Allergy NEEDS Verified 10/10/24 17:24 Select A FOLLOW-UP Anesthetics - Kalie Type- Allergy NEEDS Verified 10/10/24 17:24 Parabens FOLLOW-UP codeine Allergy Unknown Verified 10/10/24 17:24 meperidine (From Demerol) Allergy Unknown Verified 10/10/24 17:24 midazolam HCl (From Versed) Allergy Unknown Verified 10/10/24 17:24 oxycodone (From Percocet) Allergy Unknown Verified 10/10/24 17:24 Family History Mother Breast cancer Father Heart disease Surgical History H/O ultrasound guided needle biopsy S/P skin biopsy History of total abdominal hysterectomy H/O colonoscopy H/O umbilical hernia repair Hx of cataract surgery History of carpal tunnel surgery H/O: Hx of appendectomy History of tonsillectomy Social History Smoking Status: Former smoker second hand exposure: No alcohol intake: never substance use type: does not use ROS Constitutional Constitutional: Reports fatigue; Denies chills, fever(s) or weakness Eyes Eyes: Denies change in vision Cardiovascular Cardiovascular: Denies chest pain Respiratory/Chest Respiratory/Chest: Denies shortness of breath at rest Gastrointestinal Gastrointestinal: Reports abdominal pain, diarrhea and nausea; Denies constipation, hematochezia, melena or vomiting Genitourinary Genitourinary: Denies dysuria Musculoskeletal Musculoskeletal: Denies arthralgias or myalgias Neurologic Neurologic: Denies dizziness, focal weakness or headache(s) Vital Signs Vital Signs Vital Signs: 10/10/24 17:21 10/10/24 19:00 10/10/24 19:00 Temperature 98.5 F 99.1 F 99.1 F Temperature Source Oral Oral Pulse Rate 99 89 89 Respiratory Rate 16 16 16 Blood Pressure 133/58 H 122/56 H 122/56 H Blood Pressure Mean 83 78 78 Pulse Ox 100 99 98 Oxygen Delivery Method Room Air Room Air Physical Exam Const alert, oriented x3, no apparent distress and average body habitus Constitutional Narrative: Elderly female, fatigued appearing but otherwise sitting up comfortably in bedside chair, conversing normally, in no acute distress. General Appearance: cooperative and comfortable HEENT normocephalic, head/scalp atraumatic, hearing grossly normal bilaterally, nasal mucous membranes and turbinates normal and moist oral mucous membranes Eyes PERRL, EOMs intact bilaterally and conjunctivae normal Neck full ROM Chest inspection of chest normal Resp normal respiratory effort, normal air movement, no use of accessory muscles and clear to auscultation bilaterally Cardio regular rate, regular rhythm, no murmurs and peripheral pulses 2+ throughout GI GI Narrative: Moderate tenderness to palpation noted in left lower abdomen. Abdomen otherwise soft and nondistended. Back/Spine normal ROM Extremity normal to inspection, full ROM and no pedal edema Skin no rashes or lesions noted Psych mental status grossly normal Results Lab / Micro Data 10/10/24 17:52 10/10/24 17:52 Labs: Laboratory Results - last 24 hr 10/10/24 17:52: WBC 11.7 H, RBC 3.94 L, Hgb 11.9 L, Hct 36.6 L, MCV 92.9, MCH 30.2, MCHC 32.5, RDW Std Deviation 56.8 H, RDW Coeff of Devante 16.6 H, Plt Count 245, MPV 10.3, Immature Gran % (Auto) 0.300, Neut % (Auto) 79.3 H, Lymph % (Auto) 10.9 L, [place] % (Auto) 7.0, Eos % (Auto) 2.0, Baso % (Auto) 0.5, Absolute Neuts (auto) 9.3 H, Absolute Lymphs (auto) 1.28, Nucleated RBC % 0, Sodium 134, Potassium 4.0, Chloride 100, Carbon Dioxide 21.6, Anion Gap 12, BUN 26 H, Creatinine 1.10, Est GFR (MDRD) Non-Af 50 L, BUN/Creatinine Ratio 23.8 H, Glucose 218 H, Lactic Acid 1.3, Calcium 8.2, Total Bilirubin 1.44 H, AST 18, ALT 9, Alkaline Phosphatase 83, Total Protein 6.0, Albumin 3.0 L, Globulin 3.0, Albumin/Globulin Ratio 1.0, Lipase 7 L 10/10/24 18:24: Urine Color Yellow, Urine Clarity Clear, Urine pH 5.0, Ur Specific [place] 1.010, Urine Protein 30 H, Urine Glucose (UA) 250 H, Urine Ketones 15 H, Urine Occult Blood 250 H, Urine Nitrite Negative, Urine Bilirubin Negative, Urine Urobilinogen 1 H, Ur Leukocyte Esterase 100 H, Urine RBC 0-5 SEEN, Urine WBC 5-10 SEEN, Ur Squamous Epith Cells 0-5 SEEN, Urine Bacteria 0 SEEN, Urine Mucus 0 SEEN Assessment & Plan Assessment/Plan (1) Abdominal pain: (2) Colitis: PLAN: Plan Patient is an 84-year-old female who presented [facility] ED on 10/10/2024 with worsening abdominal pain. 1. Abdominal pain with colitis and concern for mesenteric ischemia ? Admit under inpatient status to [facility]. GI consulted. Outpatient CT abdomen pelvis report on 10/10 noted circumferential thickening in the descending colon most consistent with colitis and significant calcification of the superior mesenteric artery. Patient with intermittent diarrhea but no dark or bloody stools noted, and hemoglobin stable at baseline. Stool PCR panel ordered. Will treat with IV Zosyn for now. Appreciate further GI recommendations. 2. History of DVT on warfarin with supratherapeutic INR ? INR 12.5 on admit. No active bleeding noted and hemoglobin stable at baseline 11. However, given risk for bleeding especially GI tract with colitis as above, will give dose of p.o. vitamin K 5 mg this evening. Follow-up a.m. INR. Holding home warfarin. 3. Mild acute debility ? PT/OT/case management consulted. Patient lives at home with her and reports fairly good functional status at baseline. Should be okay to return home on discharge but appreciate therapy recommendations. 4. Type 1 diabetes mellitus on insulin pump ? Follows with endocrinology. Diagnosed with diabetes in her early teens. Per last endocrinology note from June, has excellent glucose control. Will continue insulin pump while inpatient. 5. History of recurrent peritoneal cancer ? Has followed with [facility] oncology for this, see HPI for further details. In short, last saw them in 2021 when she completed her last round of chemotherapy. Patient reports steadily worsening CA125 level and is scheduled to see [facility] oncology later this month. However, CT abdomen pelvis as above did not show any new cancer findings. No inpatient needs, continue outpatient follow-up. 6. Hypertension/hyperlipidemia ? Normotensive on admit. Given concern for mesenteric ischemia as above, will hold home valsartan for now. Continue home Toprol. Continue home statin. 7. Hypothyroidism ? Continue home Synthroid. DVT prophylaxis: Holding warfarin in setting of supratherapeutic INR as above CODE STATUS: Full code, verified Expected disposition: TBD Total clinical time spent by myself addressing the patient's medical issues, reviewing all the data, and collaborating with patient's care team: 75 minutes. Charges/Coding Visit Charges Inpatient E&M: 38623 Init Hosp L3
--- NOTE | 2024-10-10 20:02 | CASEMGMT ---
Care Management Face to Face with patient for initial transition planning/care coordination assessment in the ED. This typewriter operator automatic introduced self and role at [facility]. Patient alert and oriented. Patient willing to participate in assessment and is able to answer all questions appropriately. Care providers, pharmacy, and demographics verified. 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 , endocrinology. Preferred Pharmacy: [facility] Insurance: [employer] Medicare Prescription Benefit: yes Living Will/HPOA: denies and does not want info (but told nursing earlier that patient does have documents, so follow up is necessary). LNOK: , Enrique. Daughter, Tania. Daughter, Petrona. Living Arrangements: with in an apartment with 3 steps to enter from the front (2 steps from the back). Independent at baseline with all ADLs/IADLs, though states having some difficulty lately. Transportation: patient drives DME: Dex[employer], grab bars in bathroom, walk in shower HHC: none SNF/Rehab: none Community Resources: none Patient goals: Patient wishes to discharge home, denies need for home health care at this time. Patient denies any further needs or concerns at this time. Disposition Plan: admission to acute; RN CM/SW to follow for discharge planning needs that may arise. Mavis Manzo, INDEPENDENT CONTRACTOR, WRAPPER SELECTOR
--- OUTSIDE RECORDS SUMMARY | 2024-10-10 20:12 | XMS RPT_ITS | CCD ---
Author Organization [facility] Care Team Providers Care Talent Assistant Name Role Phone Walt LEBRONN, Ambika L Unavailable Unavailable Walt RESEARCH MANAGEMENT ASSOCIATEGrantia L Unavailable Unavailable Walt RESEARCH MANAGEMENT ASSOCIATE Ambika L Unavailable Unavailable Walt LEBRONN, Ambika L Unavailable Unavailable Melchor Washington DO Primary Care Provider Estela Mendez RN (Rn)(Hist) Unavailable Darlene vaRudy Escobedo MD Unavailable Melchor Washington DO Primary Care Provider Estela Mendez RN (Rn)(Hist) Unavailable Darlene vaRudy Escobedo MD Unavailable Melchor Washington DO Primary Care Provider Rudy Ross MD Unavailable Melchor Washington DO Primary Care Provider Estela Mendez RN (Rn)(Hist) Unavailable Darlene vaRudy Escobedo MD Unavailable Estela Mendez RN Unavailable Unavailable Dr. Melchor Washington Primary Care Provider Dr. Melchor Washington Referring Provider Dr. Rudy Ross Attending Provider Estela Jimenez RN Unavailable Unavail able Estela Jimenez RN Unavailable Unavail able Melchor Washington DO Primary Care Provider Arthur PROCED TECH.Roberta ISAACS Unavailable Kapil Guillen APRN.CNP Unavailable Washington, Melchor Primary Care Unavailable Dwight Gomez Attending Unavailable Washington, Melchor Primary Care Unavailable Washington, Melchor Referring Unavailable Cody, Rudy Attending Unavailable Washington, Melchor Primary Care Unavailable Washington, Melchro Referring Unavailable Cody, Rudy Attending Unavailable Washington, Melchor Referring Unavailable Washington, Melchor Primary Care Unavailable Cody, Rudy Attending Unavailable Washington, Melchor Referring Unavailable Washington, Melchor Primary Care Unavailable Cody, Rudy Attending Unavailable Gibson 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 SYRUP MACHINE, Roberta Aponte Unavailable Chad PROCED TECHBhavyaLABORER SYRUP MACHINE, Vielka Crawford Unavailable WASHINGTON, MELCHOR L Attending Unavailable WASHINGTON, MELCHOR L Primary Care Unavailable WASHINGTON, MELCHOR L Primary Care Unavailable WASHINGTON, MELCHOR L Referring Unavailable WASHINGTON, MELCHOR L Primary Care Unavailable WASHINGTON, MELCHOR L Primary Care Unavailable WASHINGTON, MELCHOR L Primary Care Unavailable WASHINGTON, MELCHOR L Primary Care Unavailable WASHINGTON, MELCHOR L Primary Care Unavailable WASHINGTON, MELCHOR L Primary Care Unavailable WASHINGTON, MELCHOR L Primary Care Unavailable WASHINGTON, MELCHOR L Referring Unavailable WASHINGTON, MELCHOR L Primary Care Unavailable WASHINGTON, MELCHOR L Primary Care Unavailable WASHINGTON, MELCHOR L Primary Care Unavailable WASHINGTON, MELCHOR L Referring Unavailable WASHINGTON, MELCHOR L Referring Unavailable WASHINGTON, MELCHOR L Primary Care Unavailable KAPIL GUILLEN Attending Unavailable WASHINGTON, MELCHOR L Primary Care Unavailable WASHINGTON, MECLHOR L Primary Care Unavailable WASHINGTON, MELCHOR L Referring Unavailable WASHINGTON, MELCHOR L Primary Care Unavailable WASHINGTON, MELCHOR L Primary Care Unavailable WASHINGTON, MELCHOR L Referring Unavailable WASHINGTON, MELCHOR L Primary Care Unavailable WASHINGTON, MELCHOR L Primary Care Unavailable WASHINGTON, MELCHOR L Primary Care Unavailable WASHINGTON, MELCHOR L Primary Care Unavailable WASHINGTON, MELCHOR L Attending Unavailable WASHINGTON, MELCHOR L Primary Care Unavailable WASHINGTON, MELCHOR L Primary Care Unavailable WASHINGTON, MELCHOR L Primary Care Unavailable WASHINGTON, MELCHOR L Primary Care Unavailable WASHINGTON, MELCHOR L Primary Care Unavailable WASHINGTON, MELCHOR L Referring Unavailable WASHINGTON, MELCHOR L Primary Care Unavailable WASHINGTON, MELCHOR L Primary Care Unavailable WASHINGTON, MELCHOR L Primary Care Unavailable WASHINGTON, MELCHOR L Referring Unavailable WASHINGTON, EMLCHOR L Primary Care Unavailable WASHINGTON, MELCHOR L Primary Care Unavailable WASHINGTON, MELCHOR L Primary Care Unavailable WASHINGTON, MELCHOR L Primary Care Unavailable WASHINGTON, MELCHOR L Referring Unavailable WASHINGTON, MELCHOR L Primary Care Unavailable WASHINGTON, MELCHOR L Primary Care Unavailable WASHINGTON, MELCHOR L Primary Care Unavailable WASHINGTON, MELCHOR L Primary Care Unavailable WASHINGTON, MELCHOR L Referring Unavailable WASHINGTON, MELCHOR L Primary Care Unavailable WASHINGTON, MELCHOR L Primary Care Unavailable WASHINGTON, MELCHOR L Primary Care Unavailable WASHINGTON, MELCHOR L Attending Unavailable WASHINGTON, MELCHOR L Primary Care Unavailable WASHINGTON, MELCHOR L Referring Unavailable WASHINGTON, MELCHOR L Primary Care Unavailable WASHINGTON, MELCHOR L Referring Unavailable WASHINGTON, MELCHOR L Primary Care Unavailable Allergies Allergy Classification Reported Allergen(s) Allergy Type Date of Onset Reaction(s) Facility (8 sources) Acetaminophen / Codeine; Translations: [ACETAMINOPHEN-CO DEINE] Drug Allergy 6 [facility] Work Phone: (20 sources) Codeine; Translations: [codeine] Drug Allergy 5 Unknown [facility] Work Phone: (4 sources) Iodine Drug Allergy 6 [facility] Work Phone: (5 sources) ANESTHESIA drug allergy 6 Nausea/Vomitin g, Unknown [facility] Work Phone: (20 sources) Acetaminophen / oxyCODONE; Translations: [OXYCODONE-ACETAM INOPHEN] Drug Allergy 4 Mental Status Change, GI Upset [facility] Work Phone: (20 sources) Lisinopril; Translations: [LISINOPRIL] Drug Allergy 9 Diarrhea [facility] Work Phone: (20 sources) Meperidine; Translations: [MEPERIDINE (PF)] Drug Allergy 6 GI Upset [facility] Work Phone: (20 sources) Midazolam; Translations: [MIDAZOLAM HCL] Drug Allergy 6 GI Upset [facility] Work Phone: (20 sources) anesthetic agent [Other] Propensity to adverse reactions 7 [facility] (1 source) Acetaminophen Drug Allergy [address] [facility] Work Phone: (1 source) Meperidine Drug Allergy [address] [facility] Work Phone: (1 source) oxyCODONE Drug Allergy [address] [facility] Work Phone: (1 source) Acetaminophen Drug Allergy [address] [facility] (1 source) Meperidine Drug Allergy [address] [facility] (1 source) Midazolam Drug Allergy 5 [facility] (1 source) oxyCODONE Drug Allergy [address] [facility] (1 source) Anesthetics - Amide Type - Select A Drug allergy (disorder) [address] [facility] (1 source) Anesthetics - Kalie Type- Parabens Drug allergy (disorder) [address] [facility] Medications Current Medications Medication Drug Class(es) Dates Sig (Normalized) Sig (Original) atorvastatin 10 mg oral tablet (20 sources) HMG-CoA Reductase Inhibitor Start: 10-03-2022 End: 10-23-2023 take 1 tablet by mouth once daily atorvastatin (LIPITOR) 10 mg tablet Indications: Pure hypercholesterolemia Take 1 tablet by mouth once daily. 90 tablet 3 10/23/2023 Active Start: 04-07-2016 End: 09-19-2021 take 1 tablet by mouth once daily atorvastatin (LIPITOR) 10 mg tablet Indications: Pure hypercholesterolemia Take 1 tablet by mouth once daily. 90 tablet 3 09/20/2021 Active Comment on above: Take 1 tablet by gary th once daily. Blood-Glucose Meter,Continuous (Dexcom G6 Lens Coating Technician) misc (1 source) Start: 12-26-2019 Blood-Glucose Meter,Continuous (Dexcom G6 Lens Coating Technician) misc Active 0 .ROUTE .MEDSUPPLY December 25, 2019 11:00pm As directed Blood-Glucose Sensor (Dexcom G6 Sensor) device (3 sources) Start: 04-19-2021 Blood-Glucose Sensor (Dexcom G6 Sensor) device Active 0 .ROUTE .MEDSUPPLY 9 April 19, 2021 9:30am As directed Start: 05-14-2020 End: 04-19-2021 Blood-Glucose Sensor (Dexcom G6 Sensor) device Discontinued 0 .ROUTE .MEDSUPPLY 9 May 14, 2020 1:35pm April 19, 2021 9:31am As directed Start: 12-26-2019 End: 05-14-2020 Blood-Glucose Sensor (Dexcom G6 Sensor) device Discontinued 0 .ROUTE .MEDSUPPLY 9 December 25, 2019 11:00pm May 14, 2020 1:35pm As directed Blood-Glucose Transmitter (Dexcom G6 Transmitter) device (3 sources) Start: 04-19-2021 Blood-Glucose Transmitter (Dexcom G6 Transmitter) device Active 0 .ROUTE .MEDSUPPLY 1 April 19, 2021 9:30am As directed Start: 05-14-2020 End: 04-19-2021 Blood-Glucose Transmitter (D excom G6 Transmitter) device Discontinued 0 .ROUTE .MEDSUPPLY 1 May 14, 2020 1:35pm April 19, 2021 9:31am As directed Start: 12-26-2019 End: 05-14-2020 Blood-Glucose Transmitter (D excom G6 Transmitter) device Discontinued 0 .ROUTE .MEDSUPPLY December 25, 2019 11:00pm May 14, 2020 1:35pm As directed COMPOUNDED PRESCRIPTION (20 sources) Start: 01-12-2014 COMPOUNDED PRE SCRIPTION [employer]lite Sensors change sensor every 6 days 2 Container 3 01/12/2014 Active Start: 09-01-2013 COMPOUNDED PRE SCRIPTION Insulin pump supplies faxed to [facility] 90 Each 3 09/01/2013 Active Comment on above: Insulin pump supplie s faxed to [facility] [employer]lite Sensors campa e sensor every 6 days diclofenac sodium 0.01 mg/mg topical gel (20 sources) Nonsteroidal Anti-inflammatory Drug Start: 021 apply 2 g topically four times daily as needed for pain diclofenac (VOLTAREN) 1 % topical gel Indications: Essential hypertension, benign Apply 2 g to affected area four times daily as needed. Knee pain for arthritis 120 g 3 07/05/2020 Active Comment on above: Apply 2 g to affecte d area four times daily as needed. Knee pain for arthritis doxycycline hyclate 100 mg oral capsule (3 sources) Tetracycline-class Drug Start: End: take 1 capsule by mouth twice daily doxycycline hyclate (VIBRAMYCIN) 100 mg capsule Indications: Acute non-recurrent maxillary sinusitis Take 1 capsule by mouth two times a day for 10 days. 20 capsule 08/05/2024 08/15/2024 Active enteric contrast (will be provided with radiology test) (3 sources) Start: End: enteric contrast (will be provided with radiology test) For CT ABD/PEL W IVCON Routine order Administer, As Directed One Time Only, via Oral, Rectal, both Oral and Rectal, Enteric Tube, Stoma or Indwelling Catheter, Enteric Contrast as designated per enteric contrast guidelines 1 each 10/10/2024 10/11/2024 Active ergocalciferol 1.25 mg oral capsule (20 sources) Provitamin D2 Compound Start: End: take 2 capsules by mouth every week ergocalciferol 50,000 unit capsule (VITAMIN D2, DRISDOL) TAKE 2 CAPSULES BY MOUTH ONCE A WEEK 24 capsule 3 09/10/2023 Active Start: 05-25-2021 take 2 capsules by m outh every week ergocalciferol 50,000 unit capsule (VITAMIN D2, DRISDOL) TAKE 2 CAPSULES BY MOUTH ONCE A WEEK 24 capsule 3 05/25/2021 Active Start: 04-07-2016 End: 01-16-2022 take 01746 [IU] by mouth once Ergocalciferol (Vitamin D2) Discontinued 17849 UNIT PO MOTH April 07, 2016 12:00am January 16, 2022 10:48am Comment on above: TAKE 2 CAPSULES BY M OUTH ONCE A WEEK estradiol 0.1 mg/ml vaginal cream (20 sources) Estrogen Start: 05-14-2020 Estradiol Active 1 GM VAGINAL DAILY May 14, 2020 12:00am Start: 01-30-2020 End: 04-22-2024 estradiol (ESTRACE) 0.01 % ( 0.1 mg/gram) vaginal cream Indications: Atrophic vaginitis APPLY A FINGERTIP AMOUNT EVERY OTHER DAY DIRECTED 85 g 3 01/30/2020 04/22/2024 Discontinued (Course of therapy completed) Comment on above: APPLY A FINGERTIP AM OUNT EVERY OTHER DAY DIRECTED glucagon (rdna) 1 mg injection (20 sources) Antihypoglycemic Agent Start: 09-01-2013 glucagon, human recombinant, (GLUCAGON EMERGENCY) 1 mg injection Inject 1 mg subcutaneously. INJECT FOR INSULIN SHOCK 1 Each 1 09/01/2013 Active Comment on above: Inject 1 mg subcutan eously. INJECT FOR INSULIN SHOCK heparin (20 sources) Unfractionated Heparin, Anti-coagulant Start: 09-19-2016 heparin 100 unit/mL injection Access implanted vascular access device (IVAD) as needed for flush, blood draw or treatment. Before de-accessing port, flush with 10-20ml normal saline and follow with 5 mL heparin (100 units/mL) (if no heparin allergy). De-access port on treatment completion. 5 mL 25 09/19/2016 Active Comment on above: Access implanted vas cular access device (IVAD) as needed for flush, blood draw or treatment. Before de-accessing port, flush with 10-20ml normal saline and follow with 5 mL heparin (100 units/mL) (if no heparin allergy). De-access port on treatment completion. hydrocortisone 100 mg injection (1 source) Corticosteroid Start: 06-21-2021 End: 06-21-2021 hydrocortisone sodium succinate (PF) 50 mg injection (Solu-CORTEF) insulin lispro-aabc 100 unt/ml injectable solution (20 sources) Insulin Analog Start: 09-25-2023 insulin lispro-aabc (LYUMJEV) 100 unit/mL solution 90 Units. 09/25/2023 Active Start: 04-23-2020 End: 10-23-2023 inject 85 [IU] by subcutaneous injection once daily HUMALOG U-100 INSULIN 100 unit/mL injection Inject subcutaneously, through the insulin pump, max 85 units daily 04/23/2020 10/23/2023 Discontinued Start: 04-23-2020 End: 10-23-2023 HUMALOG U-100 INSULIN 100 un it/mL injection Inject subcutaneously, through the insulin pump, max 85 units daily 0 04/23/2020 10/23/2023 Discontinued Start: 04-23-2020 End: 01-16-2022 Insulin Lispro (Humalog U-10 0 Insulin) 100 unit/mL solution Active 90 UNIT SC DAILY January 16, 2022 11:03am via insulin pump Comment on above: Inject subcutaneousl y, through the insulin pump, max 85 units daily Insulin Pump Syringe (MINIMED SYR RES 3CC/22GX1/2) 3 mL misc (20 sources) Start: 014 Insulin Pump Syringe (MINIMED SYR RES 3CC/22GX1/2) 3 mL misc Change site every 3 days 30 Each 3 01/12/2014 Active Comment on above: Change site every 3 days iv contrast (will be provided with radiology test) (3 sources) Start: 025 End: 025 iv contrast (will be provided with radiology test) CT ABD/PEL -Inject, intravenously, once for 1 dose.No IV access, insert saline lock prior to the beginning of sedation, infusion, injection of imaging exam. Discontinue saline lock post exam. If Pt. has a central line or IVAD, may access for administration according to line specific nursing protocol. Once exam is complete flush line and de-access according to line specific nursing protocol in theCT contrast administration guidelines link. 1 each 10/10/2024 10/11/2024 Active levothyroxine sodium 0.112 mg oral tablet (20 sources) l-Thyroxine Start: 023 End: 024 take 1 tablet by mouth once daily levothyroxine (SYNTHROID) 112 mcg tablet Indications: 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, 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, 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) Take 1 tablet by mouth once daily. 90 tablet 3 12/25/2023 Active Start: 09-20-2020 End: 09-19-2021 take 1 tablet by mouth once daily levothyroxine (SYNTHROID) 112 mcg tablet Indications: 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, 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, 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) Take 1 tablet by mouth once daily. 90 tablet 3 09/20/2021 Active Start: 04-07-2016 End: 04-19-2021 take 100 ug by mouth once daily Levothyroxine Discontinued 100 MCG PO DAILY 90 October 30, 2017 8:48am April 19, 2021 9:31am Comment on above: Take 1 tablet by gary th once daily. 24 hr metoprolol succinate 25 mg extended release oral tablet (20 sources) beta-Adrenergic Arelis Start: 07-31-2022 End: 10-23-2023 take 1 tablet by mouth once daily metoprolol succinate ER (TOPROL XL) 25 mg 24 hr tablet Take 1 tablet by mouth once daily. 90 tablet 3 10/23/2023 Active Start: 05-25-2021 take 1 tablet by gary th once daily metoprolol succinate ER (TOPROL XL) 25 mg 24 hr tablet Take 1 tablet by mouth once daily. 90 tablet 3 05/25/2021 Active Start: 05-14-2020 Metoprolol Suc cinate Active TABLET PO May 14, 2020 12:00am Comment on above: Take 1 tablet by gary th once daily. TAKE 1 TABLET DAILY nitrofurantoin, macrocrystals 25 mg / nitrofurantoin, monohydrate 75 mg oral capsule (1 source) Nitrofuran Antibacterial Start: End: take 1 capsule by mouth twice daily at mealtime nitrofurantoin monohydrate and macrocrystal (MACROBID) 100 mg capsule Indications: Microscopic hematuria Take 1 capsule by mouth two times a day with meals for 5 days. 10 capsule 01/18/2024 2024 Active perflutren lipid microspheres 1.3 mL in NaCl (PF) 0.9% 10 mL injection (DEFINITY) (20 sources) Start: End: perflutren lipid microspheres 1.3 mL in NaCl (PF) 0.9% 10 mL injection (DEFINITY) 125 ml sodium chloride 9 mg/ml prefilled syringe (20 sources) Start: End: sodium chloride 0.9 % (flush) 10 mL (BD POSIFLUSH) Start: 09-19-2016 0.9 % SODIUM C HLORIDE (0.9% NACL) Access implanted vascular access device (IVAD) as needed for flush, blood draw or treatment. Flush IVAD with 10-20 mL NS every 4 weeks and PRN when IVAD not in use. 2 Syringe 50 09/19/2016 Active Comment on above: Access implanted vas cular access device (IVAD) as needed for flush, blood draw or treatment. Flush IVAD with 10-20 mL NS every 4 weeks and PRN when IVAD not in use. 24 hr tolterodine tartrate 2 mg extended release oral capsule (20 sources) Cholinergic Muscarinic Antagonist Start: 04-22-19 take 1 capsule by mouth once daily tolterodine ER (DETROL LA) 2 mg 24 hr capsule Indications: Urge incontinence Take 1 capsule by mouth once daily. 90 capsule 1 04/22/2024 Active traMADol hydrochloride 50 mg oral tablet (4 sources) Opioid Agonist Start: 10-21-19 End: 10-28-19 traMADol (ULTRAM) 50 mg tablet Indications: Right hip pain , Injury of right hip, subsequent encounter EVERY 4 HOURS NEEDED as needed for Pain 28 tablet 0 10/23/2023 10/28/2023 Active ubidecarenone 200 mg oral capsule (20 sources) Start: 08-21-19 Coenzyme Q10 (Co Q-10) 200 mg capsule Active 200 MG PO DAILY August 20, 2019 11:00pm Start: 04-07-2016 End: 03-01-2017 Coenzyme Q10 Discontinued 10 0 MG PO DAILY April 07, 2016 12:00am March 01, 2017 10:25am Start: 06-12-2008 ubidecarenone( CO Q-10 100 MG CAP) Take one(1) capsule daily. 0 06/12/2008 Active Comment on above: Take one(1) capsule daily. valsartan 80 mg oral tablet (5 sources) Angiotensin 2 Receptor Arelis Start: 04-07-2016 take 80 mg by mouth once daily Valsartan Active 80 MG PO DAILY April 07, 2016 12:00am Vitamin B Comp And C No.3 (B Complex Plus Vitamin C) 88-11-85-5-300 mg capsule (1 source) Start: 08-21-2019 Vitamin B Comp And C No.3 (B Complex Plus Vitamin C) 04-04-62-5-300 mg capsule Active 1 CAP PO DAILY August 20, 2019 11:00pm give with food (meal/snack) vitamin b12 1 mg/ml injectable solution (20 sources) Vitamin B12 Start: 04-22-2024 End: 03-24-2025 1,000 mcg, INTRAMUSCULAR, EVERY 4 WEEKS, 12 doses, First dose on Sun04/22/24 at 1230, Last dose on Sun02/24/25 at 1230 Start: 01-31-2022 End: 10-23-2023 inject 1 mL by intramuscular injection every month cyanocobalamin 1,000 mcg/mL Indications: Vitamin B12 deficiency Inject 1 mL intramuscularly once every month. 3 mL 3 01/31/2022 10/23/2023 Discontinued Start: 12-26-2021 End: 03-24-2025 cyanocobalamin 1,000 mcg inj ection Comment on above: Inject 1 mL intramus cularly once every month. warfarin sodium 2 mg oral tablet (20 sources) Vitamin K Antagonist Start: 10-18-2023 End: 11-23-2023 warfarin (COUMADIN) 2 mg tablet 2mg Mon,Fri and 3mg all other days or as directed 90 tablet 3 11/23/2023 Active Start: 11-17-2022 End: 10-18-2023 warfarin (COUMADIN) 2 mg tab let 3 mg every Sun and Sunday, 2 mg all other days or as directed 90 tablet 3 11/17/2022 10/18/2023 Discontinued (Adjust Sig - Block E-Cancel) Start: 01-11-2022 End: 11-16-2022 warfarin (COUMADIN) 2 mg tab let 2 mg Wed, 3 mg all other days or as directed 90 tablet 3 01/11/2022 11/16/2022 Discontinued Start: 11-24-2021 End: 10-23-2023 warfarin (COUMADIN) 1 mg tab let 2mg Mon,Sun and 3mg all other days or as directed 90 tablet 3 10/18/2023 Active Start: 07-14-2021 End: 01-09-2022 warfarin (COUMADIN) 2 mg tab let 2 mg Wed, 3 mg all other days or as directed 90 tablet 3 11/24/2021 01/09/2022 Discontinued Start: 06-14-2021 End: 07-14-2021 warfarin (COUMADIN) 2 mg tab let 3 mg Wed, 2 mg all other days or as directed 90 tablet 3 06/14/2021 07/14/2021 Discontinued Start: 02-10-2021 End: 07-14-2021 warfarin (COUMADIN) 1 mg tab let Indications: Chronic anticoagulation 3 mg Wed, 2 mg all other days or as directed 90 tablet 3 06/14/2021 07/14/2021 Discontinued Start: 05-22-2019 End: 11-24-2021 warfarin (COUMADIN) 1 mg tab let 1 mg T/TH, 2 mg all other days or as directed. 0 07/14/2021 11/24/2021 Discontinued Start: 03-01-2017 End: 03-01-2017 take 4 mg by mouth once daily Warfarin Discontinued 4 MG PO daily March 01, 2017 12:00am March 01, 2017 1:13pm Start: 04-07-2016 End: 06-14-2021 warfarin (COUMADIN) 2 mg tab let Take 2 mg by mouth. 2 MG T/Th/Sat 90 tablet 3 02/10/2021 06/14/2021 Discontinued Start: 04-07-2016 End: 05-22-2019 Warfarin Discontinued 4 MG P O .1 d qwk March 01, 2017 1:12pm May 22, 2019 8:17am End: 06-14-2021 warfarin (COUMADIN) 1 mg tab let Take 1.5 mg by mouth. Sunday 0 06/14/2021 Discontinued Comment on above: Take 2 mg by mouth. 2 MG T/Th/Sat // Take 1.5 mg by mouth . Sunday 3 mg Wed, 2 mg all o ther days or as directed 1 mg T/TH, 2 mg all other days or as directed. 2 mg Wed, 3 mg all o ther days or as directed 3 mg every Sun and F , 2 mg all other days or as directed Completed/Discontinued Medications Medication Drug Class(es) Dates Sig (Normalized) Sig (Original) acetaminophen 500 mg oral tablet (20 sources) Start: 05-13-2021 End: 10-23-2023 take 2 tablets by mouth every six hours as needed acetaminophen (TYLENOL EXTRA STRENGTH) 500 mg tablet Take 2 tablets by mouth every 6 hours as needed for pain. 60 tablet 05/13/2021 10/23/2023 Discontinued Comment on above: Take 2 tablets by [facility] every 6 hours as needed for pain. acetaminophen 325 mg / HYDROcodone bitartrate 5 mg oral tablet (1 source) Opioid Agonist Start: 05-15-2016 End: 03-01-2017 take 1 tablet by mouth every six hours as needed Hydrocodone-Acetami nophen Discontinued 1 TABLET PO EVERY 6 HOURS NEEDED May 15, 2016 12:00am March 01, 2017 10:34am anastrozole 1 mg oral tablet (20 sources) Aromatase Inhibitor Start: 09-15-2021 take 1 tablet by mouth once daily anastrozole (ARIMIDEX) 1 mg tablet Take 1 tablet by mouth once daily. 90 tablet 3 09/15/2021 Active Comment on above: Take 1 tablet by gary th once daily. 4 ml bevacizumab 25 mg/ml injection (1 source) Vascular Endothelial Growth Factor Inhibitor Start: 09-20-2017 End: 10-17-2021 take 25 mg intravenously every month bevacizumab 25 mg/mL intravenous solution Discontinued 0 INTRAVIT .COMPLEX September 19, 2017 11:00pm October 17, 2021 10:01am INTRAVIT q month Blood-Glucose Meter (Contour Next Meter) misc (1 source) Start: 04-23-2017 End: 07-18-2021 Blood-Glucose Meter (Contour Next Meter) misc Discontinued 0 .ROUTE .MEDSUPPLY April 23, 2017 12:00am July 18, 2021 9:04am use to check BG as directed blood-glucose meter, wireless (CONTOUR NEXT LINK) kit (20 sources) Start: 01-16-2018 End: 10-23-2023 blood-glucose meter, wireless (CONTOUR NEXT LINK) kit 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 Dx: type 1 diabetes, insulin 1 Device 0 01/16/2018 Active Comment on above: 1 Device as directed . Dx: type 1 diabetes, insulin Blood-Glucose Sensor (Guardian Sensor 3) device (1 source) Start: 04-10-19 End: 02-12-20 Blood-Glucose Sensor (Guardian Sensor 3) device Discontinued 0 .ROUTE .MEDSUPPLY April 10, 2018 12:00am February 12, 2020 11:07am As directed with insulin pump and transmitter change every 7 days cholecalciferol 71721 unt oral tablet (4 sources) Vitamin D VITAMIN D3 37040 UNIT TABS CHOLECALCIFEROL [id number] Lucrecia Longoria NP dimenhyDRINATE 50 mg chewable tablet (4 sources) take 1 tablet by mouth once daily DRAMAMINE 50 MG CHEW One tablet by mouth daily DIMENHYDRINATE [id number] Lucrecia Longoria NP estrogens, conjugated (skilled nursing) 0.625 mg/ml vaginal cream (1 source) Estrogen Start: 03-21-19 End: 10-18-19 Conjugated Estrogens Discontinued TOPICAL March 21, 2018 12:00am October 17, 2021 10:01am insulin aspart, human 100 unt/ml injectable solution (13 sources) Insulin Analog Start: 04-09-19 End: 04-23-19 Insulin Aspart U-100 (Novolog U-100 Insulin Aspart) 100 unit/mL solution Discontinued 90 UNIT SC daily April 16, 2020 6:58pm April 23, 2020 9:05am via insulin pump Start: 07-09-2017 End: 04-09-2020 Insulin Aspart U-100 (Novolo g U-100 Insulin Aspart) 100 unit/mL solution Discontinued 0 Continuous Subcutaneous Infusion daily October 17, 2017 8:35am April 09, 2020 10:18am via pump Continuous Subcutaneous Infusion QDAY Start: 03-01-2017 End: 07-09-2017 inject 1 [IU] by subcutaneous injection every hour Insulin Aspart U-100 (Novolog U-100 Insulin Aspart) 100 unit/mL solution Discontinued 0.1 units/hr Continuous Subcutaneous Infusion March 01, 2017 12:00am July 09, 2017 7:06am Start: 04-07-2016 End: 03-01-2017 Insulin Aspart U-100 Discont inued 0 UNIT SQ DAILY April 07, 2016 12:00am March 01, 2017 10:33am NOVOLOG 100 UNIT /ML SOLN PUMP INSULIN ASPART [id number] Lucrecia Longoria NP NOVOLOG 100 UNIT /ML SOLN PUMP INSULIN ASPART [id number] Lucrecia Longoria NP ketoconazole 20 mg/ml medicated shampoo (20 sources) Azole Antifungal Start: 05-29-2017 ketoconazole (NIZORAL) 2 % shampoo Indications: Seborrheic dermatitis of scalp Apply 1 application to affected area once daily as needed. 120 mL 5 05/29/2017 Active Comment on above: Apply 1 application to affected area once daily as needed. Magnesium (20 sources) Magnesium 200 mg tab Take by mouth. 0 Active Comment on above: Take by mouth. meclizine hydrochloride 12.5 mg oral tablet (14 sources) Antiemetic Start: 07-03-2022 take 1 tablet by mouth every six hours as needed for dizziness and dizziness meclizine (ANTIVERT) 12.5 mg tab Indications: Dizziness Take 1 tablet by mouth every 6 hours as needed (dizziness). 30 tablet 3 07/03/2022 Active Comment on above: Take 1 tablet by gary th every 6 hours as needed (dizziness). melatonin 10 mg oral capsule (20 sources) melatonin 10 mg cap Take by mouth. 0 Active Comment on above: Take by mouth. metoclopramide 5 mg oral tablet (1 source) Dopamine-2 Receptor Antagonist Start: 04-09-2016 End: 03-01-2017 take 5 mg by mouth four times daily Metoclopramide Hcl Discontinued 5 MG PO 4 TIMES DAILY 120 April 09, 2016 12:00am March 01, 2017 10:34am mupirocin 0.02 mg/mg topical ointment (20 sources) RNA Synthetase Inhibitor Antibacterial Start: 01-09-2023 End: 04-22-2024 mupirocin (BACTROBAN) 2 % ointment Indications: Skin sore Apply to affected area once daily. Until skin sore healed on arm 15 g 1 01/09/2023 04/22/2024 Discontinued (Course of therapy completed) Comment on above: Apply to affected ar ea once daily. Until skin sore healed on arm ondansetron 8 mg disintegrating oral tablet (1 source) Serotonin-3 Receptor Antagonist Start: 04-07-2016 End: 03-01-2017 take 8 mg by mouth every eight hours as needed Ondansetron Discontinued 8 MG PO EVERY 8 HOURS NEEDED April 07, 2016 12:00am March 01, 2017 10:09am 24 hr oxybutynin chloride 15 mg extended release oral tablet (20 sources) Cholinergic Muscarinic Antagonist Start: 10-23-2023 End: 04-22-2024 take 1 tablet by mouth once daily oxybutynin ER (DITROPAN XL) 15 mg 24 hr Extended Rel Tab Indications: Right hip pain , Injury of right hip, subsequent encounter Take 1 tablet by mouth once daily. 90 tablet 3 04/22/2024 04/22/2024 Discontinued Start: 04-17-2023 End: 04-22-2024 take 1 tablet by mouth once daily oxybutynin XL (DITROPAN XL) 10 mg 24 hr tablet Indications: Urinary incontinence, unspecified type Take 1 tablet by mouth once daily. For bladder incontinence 90 tablet 1 04/17/2023 04/22/2024 Discontinued (Dosage adjustment) Start: 01-09-2023 End: 04-17-2023 take 1 tablet by mouth once daily oxybutynin XL (DITROPAN XL) 5 mg 24 hr tablet Indications: Urinary incontinence, unspecified type Take 1 tablet by mouth once daily. For bladder incontinence 90 tablet 1 01/09/2023 04/17/2023 Discontinued Comment on above: Take 1 tablet by gary th once daily. For bladder incontinence Vitamin B Complex (20 sources) Start: 04-07-2016 End: 03-01-2017 Vitamin B Complex Discontinued 1 EACH PO DAILY April 07, 2016 12:00am March 01, 2017 10:10am Start: 06-12-2008 End: 10-23-2023 vitamin b complex(B COMPLEX 1 TAB) Take one(1) tablet daily. 0 06/12/2008 10/23/2023 Discontinued Start: 06-12-2008 vitamin b comp jb(B COMPLEX 1 TAB) Take one(1) tablet daily. 0 06/12/2008 Active Comment on above: Take one(1) tablet d aily. Problems Active Problems Problem Classification Problem Date Documented Da te Episodic/Chronic Abdominal pain (3 sources) Generalized abdominal pain; Translations: [Generalized abdominal pain] 10-10-2024 Episodic Cancer of other female genital organs (1 source) Carcinoma of fallopian tube ; Translations: [Malignant neoplasm of unspecified fallopian tube] Chronic Cancer of other GI organs; peritoneum (20 sources) Malignant tumor of peritoneum; Translations: [Malignant neoplasm of peritoneum, unspecified] Onset: 11-06-2006 Resolved: 12-13-2009 05-13-2021 Chronic Cancer of ovary (20 sources) Malignant tumor of ovary; Translations: [Malignant neoplasm of unspecified ovary] Onset: 09-17-2006 Resolved: 11-06-2006 05-13-2021 Chronic Chronic kidney disease (20 sources) Chronic kidney disease stage 3A ; Translations: [Stage 3a chronic kidney disease] Onset: 10-04-2022 10-04-2022 Chronic Conditions associated with dizziness or vertigo (1 source) Dizziness; Translations: [Dizziness and giddiness] Episodic Diabetes mellitus 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s (20 sources) 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; Translations: [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] Onset: 11-14-2018 05-13-2021 Chronic Diabetes mellitus without complication (20 sources) Type 1 diabetes mellitus; Translations: [Patient encounter status] Onset: 02-14-2016 02-14-2016 Chronic Disorders of lipid metabolism (20 sources) Dyslipidemia; Translations: [Hyperlipidemia, unspecified] Onset: 03-02-2017 03-02-2017 Chronic Essential hypertension (20 sources) Hypertensive disorder; Translations: [Benign essential hypertension] Onset: 01-22-2007 02-14-2016 Chronic Genitourinary symptoms and ill-defined conditions (20 sources) Urinary incontinence; Translations: [Unspecified urinary incontinence] Onset: 04-24-2024 01-09-2023 Chronic Immunizations and screening for infectious disease (6 sources) Vaccination needed; Translations: [Encounter for immunization] Episodic Maintenance chemotherapy; radiotherapy (14 sources) Patient encounter status; Translations: [Encounter for antineoplastic chemotherapy] Chronic Malignant neoplasm without specification of site (4 sources) Malignant neoplastic disease; Translations: [Malignant (primary) neoplasm, unspecified] Onset: 02-14-2016 02-14-2016 Chronic Menopausal disorders (20 sources) Atrophic vaginitis; Translations: [Postmenopausal atrophic vaginitis] Onset: 01-04-2010 02-14-2016 Chronic Miscellaneous mental health disorders (20 sources) Primary insomnia; Translations: [Primary insomnia] Onset: 06-22-2020 06-22-2020 Chronic Nutritional deficiencies (20 sources) Vitamin D deficiency; Translations: [Vitamin D deficiency, unspecified] Onset: 07-06-2009 02-14-2016 Chronic Osteoarthritis (4 sources) Arthritis; Translations: [Unspecified osteoarthritis, unspecified site] Onset: 02-14-2016 02-14-2016 Chronic Other aftercare (1 source) Follow-up status; Translations: [Encounter for follow-up examination after completed treatment for conditions other than malignant neoplasm] Episodic Other endocrine disorders (20 sources) Hypoglycemia; Translations: [Hypoglycemia, unspecified] Onset: 07-23-2013 07-23-2013 Chronic Other gastrointestinal disorders (3 sources) Altered bowel function; Translations: [Change in bowel habit] 10-10-2024 Episodic Other injuries and conditions due to external causes (2 sources) Contusion; Translations: [Other injury of unspecified body region, initial encounter] 02-15-2024 Episodic Other lower respiratory disease (1 source) Multiple nodules of lung; Translations: [Other nonspecific abnormal finding of lung field] Episodic Other nervous system disorders (4 sources) Carpal tunnel syndrome; Translations: [Carpal tunnel syndrome, unspecified upper limb] Onset: 02-14-2016 02-14-2016 Chronic Other non-traumatic joint disorders (1 source) Pain in right hip joint; Translations: [Pain in right hip] 10-23-2023 Episodic Other nutritional; endocrine; and metabolic disorders (8 sources) Body mass index 30+ - obesity; Translations: [Body mass index (BMI) 31.0-31.9, adult] Onset: 02-14-2016 02-14-2016 Chronic Other nutritional; endocrine; and metabolic disorders (4 sources) Overweight; Translations: [Overweight] Onset: 07-04-2016 07-04-2016 Chronic Other nutritional; endocrine; and metabolic disorders (20 sources) Obese class I; Translations: [Obesity, unspecified] Onset: 05-29-2017 05-29-2017 Chronic Other skin disorders (1 source) Skin lesion; Translations: [Disorder of the skin and subcutaneous tissue, unspecified] 01-09-2023 Episodic Other upper respiratory infections (2 sources) Acute maxillary sinusitis; Translations: [Acute maxillary sinusitis, unspecified] Onset: 08-05-2024 08-05-2024 Episodic Residual codes; unclassified (4 sources) Loss of hypoglycemic warning; Translations: [Hypoglycemia, unspecified] Onset: 02-14-2016 02-14-2016 Chronic Spondylosis; intervertebral disc disorders; other back problems (20 sources) Degeneration of lumbar intervertebral disc; Translations: [Other intervertebral disc degeneration, lumbar region] Onset: 04-24-2024 07-17-2023 Chronic Thyroid disorders (20 sources) Hypothyroidism; Translations: [Acquired hypothyroidism] Onset: 02-14-2016 02-14-2016 Chronic Unclassified (4 sources) Insertion of insulin pump; Translations: [Encounter for fitting and adjustment of insulin pump] Onset: 04-19-2016 04-21-2016 Unclassified (4 sources) Warfarin therapy started; Translations: [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] Onset: 06-28-2016 06-28-2016 Unclassified (1 source) Malignant neoplasm of both ovaries (HCC); Translations: [Malignant neoplasm of both ovaries (HCC)] Onset: 05-13-2021 Unclassified (1 source) Ovarian cancer, bilateral (HCC); Translations: [Ovarian cancer, bilateral (HCC)] Onset: 05-13-2021 Unclassified (1 source) Malignant neoplasm of bilateral ovaries (HCC); Translations: [Malignant neoplasm of bilateral ovaries (HCC)] Onset: 06-03-2024 Past or Other Problems Problem Classification Problem Date Documented Da te Episodic/Chronic Blindness and vision defects (4 sources) Disorder of vision; Translations: [Unspecified visual disturbance] Onset: 02-14-2016 02-14-2016 Episodic Cancer of ovary (20 sources) History of malignant neoplasm of ovary; Translations: [Personal history of malignant neoplasm of ovary] Onset: 01-18-2024 01-18-2024 Episodic Diabetes mellitus without complication (4 sources) Insulin pump present; Translations: [Presence of insulin pump (external) (internal)] Onset: 05-13-2021 Episodic Genitourinary symptoms and ill-defined conditions (20 sources) Microscopic hematuria; Translations: [Other microscopic hematuria] Onset: 01-04-2010 02-14-2016 Episodic Malaise and fatigue (20 sources) Fatigue; Translations: [Other fatigue] Onset: 12-14-2021 Episodic Nausea and vomiting (20 sources) Nausea; Translations: [Nausea] Onset: 04-23-2016 04-23-2016 Episodic Neoplasms of unspecified nature or uncertain behavior (20 sources) Neoplasm of uncertain behavior of skin; Translations: [Neoplasm of uncertain behavior of skin] Onset: 05-13-2008 05-13-2008 Episodic Nutritional deficiencies (20 sources) Magnesium deficiency; Translations: [Magnesium deficiency] Onset: 06-22-2020 06-22-2020 Episodic Other aftercare (20 sources) Long-term current use of anticoagulant; Translations: [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] Onset: 01-22-2007 Episodic Other aftercare (1 source) 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; Translations: [Chronic anticoagulation] Onset: 05-13-2021 Episodic Other connective tissue disease (20 sources) Swelling of finger of left hand; Translations: [Other specified soft tissue disorders] Onset: 06-22-2020 06-22-2020 Episodic Other inflammatory condition of skin (20 sources) Seborrheic dermatitis of scalp; Translations: [Seborrheic dermatitis, unspecified] Onset: 05-29-2017 05-29-2017 Episodic Other injuries and conditions due to external causes (4 sources) Fracture of bone; Translations: [Other injury of unspecified body region] Onset: 02-14-2016 02-14-2016 Episodic Other injuries and conditions due to external causes (20 sources) Injury of right hip region; Translations: [Unspecified injury of right hip, subsequent encounter] Onset: 01-18-2024 10-23-2023 Episodic Other non-traumatic joint disorders (4 sources) Joint pain; Translations: [Pain in unspecified joint] Onset: 02-14-2016 02-14-2016 Episodic Other non-traumatic joint disorders (20 sources) Shoulder joint pain; Translations: [Pain in unspecified shoulder] Onset: 01-30-2005 12-20-2009 Episodic Other non-traumatic joint disorders (20 sources) Hip pain; Translations: [Pain in right hip] Onset: 01-18-2024 12-24-2023 Episodic Other non-traumatic joint disorders (1 source) Pain in right hip; Translations: [Pain in right hip] Onset: 11-05-2023 Episodic Other nutritional; endocrine; and metabolic disorders (4 sources) Body mass index (BMI) 29.0-29.9, adult; Translations: [Body mass index (BMI) 29.0-29.9, adult] Onset: 07-04-2016 07-04-2016 Episodic Other screening for suspected conditions (not mental disorders or infectious disease) (20 sources) Mammography abnormal; Translations: [Other abnormal and inconclusive findings on diagnostic imaging of breast] Onset: 05-01-2008 02-14-2016 Episodic Phlebitis; thrombophlebitis and thromboembolism (20 sources) H/O: thrombosis; Translations: [Phlebitis] Onset: 01-22-2007 02-14-2016 Episodic Pulmonary heart disease (20 sources) Pulmonary embolism; Translations: [Other 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] Onset: 12-24-2017 12-24-2017 Episodic Spondylosis; intervertebral disc disorders; other back problems (20 sources) Sciatica; Translations: [Backache] Onset: 06-09-2008 02-14-2016 Episodic Thyroid disorders (4 sources) Disorder of thyroid gland; Translations: [Disorder of thyroid, unspecified] Onset: 02-14-2016 02-14-2016 Episodic Urinary tract infections (20 sources) Urinary tract infectious disease; Translations: [Urethritis] Onset: 01-04-2010 02-14-2016 Episodic Results Test Name Value Interpretation Reference Range Facility CT Abdomen and Pelvis W cont rast Jimy 10-10-2024 IMPRESSION: 1. Circumferential wall thickening of the sigmoid reflect inflammation, possibly inflammatory/ infectious however ischemia cannot be excluded given the significant atherosclerotic plaque. No diverticulosis, no pneumatosis or free pelvic fluid. 2. A 1.8 cm nodular area of fat stranding in the left omentum, might represent fat necrosis less likely metastatic implant however follow-up is recommended after appropriate medical treatment. No other mesenteric nodules. URGENT RESULTS Acuity: Communication: Communicated with Dr Petit, covering for KRYSTAL ANDERSON on 10/10/2024 4:33 PM via verbal communication. --END OF FINDING-- Towboat Engineer: PSCB Transcribe Date/Time: Oct 10 2024 3:52P Dictated by : ADEN KIM MD This examination was interpreted and the report reviewed and electronically signed by: ADEN KIM MD on Oct 10 2024 4:33PM [facility] DIVISION OF RADIOLOGY * * *Final Report* * * DATE OF EXAM: Oct 10 2024 3:46PM [facility] 0530 - CT ABD/PEL W IVCON / PROCEDURE REASON: multiple diagnoses * * * * Physician Interpretation * * * * EXAMINATION: CT ABDOMEN AND PELVIS WITH IV CONTRAST CLINICAL HISTORY: Bowel habit changes Generalized abdominal pain Cancer of peritoneum (HCC) Malignant neoplasm of both ovaries (HCC) TECHNIQUE: CT of the abdomen and pelvis was performed using standard technique, scanning from just above the dome of the diaphragm to the symphysis pubis. MQ: CTAP_3 Contrast: Central IV: 100 ml of Omnipaque 350 Oral: 10 ml of Omni 240 10-25ml diluted with water CT Radiation dose: Integrated Dose-length product (DLP) for this visit = 543 mGy*cm. CT Dose Reduction Employed: Automated exposure control(AEC) and iterative recon COMPARISON: CT abdomen and pelvis 09/09/2021 and prior. RESULT: Liver: No mass. Biliary: No bile duct dilation. Mildly distended gallbladder without evidence of acute inflammation. Spleen: No mass. No splenomegaly. Pancreas: Small cystic lesions in the uncinate process is stable 2017. No pancreatic ductal dilation. No mass or duct dilation. Adrenals: No mass. Kidneys: Symmetric nephrograms. No hydronephrosis or nephrolithiasis. GI tract: No dilation or wall thickening. Appendix is absent. Proximal colon is unremarkable. Significant circumferential wall thickening of the distal descending and sigmoid colon with mural stratification and upstream fecal distention, reflecting the segmental inflammation, ischemia cannot be excluded this area of hypoperfusion given the significant atherosclerotic disease. No diverticulosis to suggest diverticulitis. Sigmoid mesocolic vascular engorgement Lymph nodes: No abdominal or pelvic lymphadenopathy. Mesentery/Peritoneum: 1.3 cm nodularity in the omentum of the left lung adjacent to the colonic inflammation might represent fat necrosis, less likely metastatic implant. Retroperitoneum: No mass. Vasculature: - Abdominal aorta and iliac arteries: Atherosclerotic calcifications of the aorta, no aneurysm. - Celiac and SMA: Atherosclerotic calcifications at the origin of the celiac. 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 Heavy atherosclerotic calcifications of the SMA - Portal venous system (SMV, splenic vein, portal vein and branches): Patent. - Hepatic veins: Patent. - Other: None Pelvis: No mass, ascites or fluid collection. Hysterectomy and oophorectomy. Mild bladder wall thickening, likely reactive in nature. Bones/Soft Tissues: Postoperative changes in the ventral abdominal wall, insinuation of the colon in the epigastric region without incarceration. Degenerative changes of the hip joints. Lower thorax: Stable subpleural likely rounded atelectasis in the posterior right costophrenic angle as noted on 2021. Coronary artery, mitral annular and aortic valvular calcifications present. Localizer images: No additional findings. DIVISION OF RADIOLOGY Provider, [facility] - 10/10/2024 * * *Final Report* * * DATE OF EXAM: Oct 10 2024 3:46PM [facility] 0530 - CT ABD/PEL W IVCON / PROCEDURE REASON: multiple diagnoses * * * * Physician Interpretation * * * * EXAMINATION: CT ABDOMEN AND PELVIS WITH IV CONTRAST CLINICAL HISTORY: Bowel habit changes Generalized abdominal pain Cancer of peritoneum (HCC) Malignant neoplasm of both ovaries (HCC) TECHNIQUE: CT of the abdomen and pelvis was performed using standard technique, scanning from just above the dome of the diaphragm to the symphysis pubis. MQ: CTAP_3 Contrast: Central IV: 100 ml of Omnipaque 350 Oral: 10 ml of Omni 240 10-25ml diluted with water CT Radiation dose: Integrated Dose-length product (DLP) for this visit = 543 mGy*cm. CT Dose Reduction Employed: Automated exposure control(AEC) and iterative recon COMPARISON: CT abdomen and pelvis 09/09/2021 and prior. RESULT: Liver: No mass. Biliary: No bile duct dilation. Mildly distended gallbladder without evidence of acute inflammation. Spleen: No mass. No splenomegaly. Pancreas: Small cystic lesions in the uncinate process is stable 2017. No pancreatic ductal dilation. No mass or duct dilation. Adrenals: No mass. Kidneys: Symmetric nephrograms. No hydronephrosis or nephrolithiasis. GI tract: No dilation or wall thickening. Appendix is absent. Proximal colon is unremarkable. Significant circumferential wall thickening of the distal descending and sigmoid colon with mural stratification and upstream fecal distention, reflecting the segmental inflammation, ischemia cannot be excluded this area of hypoperfusion given the significant atherosclerotic disease. No diverticulosis to suggest diverticulitis. Sigmoid mesocolic vascular engorgement Lymph nodes: No abdominal or pelvic lymphadenopathy. Mesentery/Peritoneum: 1.3 cm nodularity in the omentum of the left lung adjacent to the colonic inflammation might represent fat necrosis, less likely metastatic implant. Retroperitoneum: No mass. Vasculature: - Abdominal aorta and iliac arteries: Atherosclerotic calcifications of the aorta, no aneurysm. - Celiac and SMA: Atherosclerotic calcifications at the origin of the celiac. 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 Heavy atherosclerotic calcifications of the SMA - Portal venous system (SMV, splenic vein, portal vein and branches): Patent. - Hepatic veins: Patent. - Other: None Pelvis: No mass, ascites or fluid collection. Hysterectomy and oophorectomy. Mild bladder wall thickening, likely reactive in nature. Bones/Soft Tissues: Postoperative changes in the ventral abdominal wall, insinuation of the colon in the epigastric region without incarceration. Degenerative changes of the hip joints. Lower thorax: Stable subpleural likely rounded atelectasis in the posterior right costophrenic angle as noted on 2021. Coronary artery, mitral annular and aortic valvular calcifications present. Localizer images: No additional findings. IMPRESSION IMPRESSION: 1. Circumferential wall thickening of the sigmoid reflect inflammation, possibly inflammatory/ infectious however ischemia cannot be excluded given the significant atherosclerotic plaque. No diverticulosis, no pneumatosis or free pelvic fluid. 2. A 1.8 cm nodular area of fat stranding in the left omentum, might represent fat necrosis less likely metastatic implant however follow-up is recommended after appropriate medical treatment. No other mesenteric nodules. URGENT RESULTS Acuity: Communication: Communicated with Dr Petit, basim for KRYSTAL ANDERSON on 10/10/2024 4:33 PM via verbal communication. --END OF FINDING-- Towboat Engineer: CHRISTIANO Transcribe Date/Time: Oct 10 2024 3:52P Dictated by : ADEN KIM MD This examination was interpreted and the report reviewed and electronically signed by: ADEN KIM MD on Oct 10 2024 4:33PM [facility] Radiology Study observation (narrative) [facility] XR Abdomen Supine and Uprigh ton 10-10-2024 IMPRESSION: Moderate stool burden. Towboat Engineer: CHRISTIANO Transcribe Date/Time: Oct 10 2024 10:58A Dictated by : RENÉE SINGH MD This examination was interpreted and the report reviewed and electronically signed by: RENÉE SINGH MD on Oct 10 2024 10:59AM [facility] DIVISION OF RADIOLOGY * * *Final Report* * * DATE OF EXAM: Oct 10 2024 10:37AM [facility] [id number] - XR ABDOMEN 1V SUPINE / PROCEDURE REASON: multiple diagnoses * * * * Physician Interpretation * * * * EXAM TITLE: XR ABDOMEN 1V SUPINE EXAM DATE/TIME: 10/10/2024 10:37 AM COMPARISON: None. CLINICAL INDICATION/HISTORY: Change in bowel habit. TECHNIQUE: AP views of the abdomen are presented. FINDINGS: No abnormally dilated bowel loops identified. Moderate amount of stool and gas noted in the large bowel loops. There are multiple surgical clips. Vascular calcifications demonstrated in the abdomen and pelvis. The spine shows degenerative changes. DIVISION OF RADIOLOGY [facility] * * *Final Report* * * DATE OF EXAM: Oct 10 2024 10:37AM [facility]OX [id number] - XR ABDOMEN 1V SUPINE / PROCEDURE REASON: multiple diagnoses * * * * Physician Interpretation * * * * EXAM TITLE: XR ABDOMEN 1V SUPINE EXAM DATE/TIME: 10/10/2024 10:37 AM COMPARISON: None. CLINICAL INDICATION/HISTORY: Change in bowel habit. TECHNIQUE: AP views of the abdomen are presented. FINDINGS: No abnormally dilated bowel loops identified. Moderate amount of stool and gas noted in the large bowel loops. There are multiple surgical clips. Vascular calcifications demonstrated in the abdomen and pelvis. The spine shows degenerative changes. IMPRESSION IMPRESSION: Moderate stool burden. Towboat Engineer: PSCAngeli Transcribe Date/Time: Oct 10 2024 10:58A Dictated by : RENÉE SINGH MD This examination was interpreted and the report reviewed and electronically signed by: RENÉE SINGH MD on Oct 10 2024 10:59AM EST [facility] Radiology Study observation (narrative) [facility] XR Abdomen Supine and Uprigh tOrdered By: Ccf Provider on 10-10-2024 [facility] PT panel Coag (PPP)Ordered B y: Martha Valentin on 10-07-2024 INR Coag (PPP) [Relative time] High 0.9 - 1.3 [facility] Comment on above: Vitamin K Antagonist (VKA) Therapeutic Range: INR 2 to 3 (Target INR of 2.5) Note: For patients treated with VKA drugs, such as warfarin, the [place] [employer] 2012 Guideline recommends a therapeutic INR range of 2 to 3 (target INR of 2.5). This recommendation includes high-risk patients with antiphospholipid syndrome with previous arterial or venous thromboembolism, current-generation mechanical or bioprosthetic aortic heart valve replacement. Note: Patients with mechanical aortic valve replacement and additional risk factors for thromboembolic events (atrial fibrillation, previous thromboembolism, LV dysfunction, hypercoagulable conditions) or an older generation mechanical AVR (i.e., ball in-Cage) or any mechanical MVR should have a INR therapeutic range of 2.5 to 3.5 (target INR of 3). Colin GH, et al. Chest 2012, 141:7S-47S Sagar RA et al. JACC 2017, 70: 252-289 Interpretation and review of laboratory results Abnormal [facility] PT Coag (PPP) [Time] High [facility] Comprehensive metabolic 2000 panelOrdered By: Patsy Talavera on 09-02-2024 Albumin [Mass/Vol] 3.3 g/dL Low 3.9 - 4.9 g/dL [facility] ALP [Catalytic activity/Vol] 95 U/L 34 - 123 U/L [facility] ALT [Catalytic activity/Vol] 14 U/L 7 - 38 U/L [facility] Anion gap [Moles/Vol] 11 mmol/L 8 - 15 mmol/L [facility] AST [Catalytic activity/Vol] 26 U/L 13 - 35 U/L [facility] Bilirubin [Mass/Vol] 0.8 mg/dL 0.2 - 1 .3 mg/dL [facility] Calcium [Mass/Vol] 8.8 mg/dL 8.5 - 10. 2 mg/dL [facility] Chloride [Moles/Vol] 103 mmol/L 98 - 10 7 mmol/L [facility] CO2 [Moles/Vol] 22 mmol/L 22 - 30 mmol/L [facility] Creatinine [Mass/Vol] 0.88 mg/dL 0.58 - 0.96 mg/dL [facility] GFR/1.73 sq M.predicted among non-blacks MDRD (S/P/Bld) [Vol rate/Area] 65 mL/min/{1.73_m2} - PINF [facility] Comment on above: Estimated Glomerular Filtration Rate (eGFR) is calculated using the 2020 CKD-EPI creatinine equation. This equation utilizes serum creatinine, sex, and age as parameters. The creatinine assay has traceable calibration to isotope dilution-mass spectrometry. Refer to KDIGO guidelines for clinical interpretation. In patients with unstable renal function, e.g. those with acute kidney injury, the eGFR may not accurately reflect actual GFR. Glucose [Mass/Vol] 233 mg/dL High 74 - 99 mg/dL [facility] Comment on above: The [place] [employer] (ADA) provides guidance for cutoff values for fasting glucose and random glucose. The ADA defines fasting as no caloric intake for at least 8 hours. Fasting plasma glucose results between 100 to 125 mg/dL indicate increased risk for diabetes (prediabetes). Fasting plasma glucose results greater than or equal to 126 mg/dL meet the criteria for diagnosis of diabetes. In the absence of unequivocal hyperglycemia, results should be confirmed by repeat testing. In a patient with classic symptoms of hyperglycemia or hyperglycemic crisis, random plasma glucose results greater than or equal to 200 mg/dL meet the criteria for diagnosis of diabetes. Reference: Standards of Medical Care in Diabetes 2016, [place] [employer]. Diabetes Care. 2016.39(Suppl 1). Interpretation and review of laboratory results Abnormal [facility] Potassium [Moles/Vol] 4.8 mmol/L 3.7 - 5.1 mmol/L [facility] Protein [Mass/Vol] 6.2 g/dL Low 6.3 - 8.0 g/dL [facility] Sodium [Moles/Vol] 136 mmol/L 136 - 144 mmol/L [facility] Urea nitrogen [Mass/Vol] 22 mg/dL High 7 - 21 mg/dL [facility] Endocrinology Visit Reporton 07-07-2024 Endocrinology Visit Report [facility] [address] [place] [address] OFFICE VISIT Date of Service: 07/07/24 MR#: [id number] Acct: [id number] Name: JERICA AZUL Rep #: [id number] : 1940 Provider: Grace Correa Age/Sex: 84/F [place] [facility] [place]: Signed Intake Vital Signs 04/03/24 10:13 07/07/24 10:50 Height 5 ft 2 in 5 ft 2 in Weight: 159 lb 4 oz 165 lb BMI 29.1 30.2 BP 144/79 H 142/60 H Blood Pressure Location Lt brachial Rt brachial Position Sitting Sitting Pulse 88 87 Pulse Source Monitor Monitor Pulse Oximetry (%) 97 98 Oxygen Delivery Method room air room air Intake Visit Reasons: 3 M FU Chief Complaint: diabetes f/u Is patient in pain?: No Allergies acetaminophen (From Percocet) Allergy (Verified 07/07/24 10:54) Unknown Anesthetics - Amide Type - Select A Allergy (Verified 07/07/24 10:54) NEEDS FOLLOW-UP Anesthetics - Kalie Type- Parabens Allergy (Verified 07/07/24 10:54) NEEDS FOLLOW-UP codeine Allergy (Verified 07/07/24 10:54) Unknown meperidine (From Demerol) Allergy (Verified 07/07/24 10:54) Unknown midazolam HCl (From Versed) Allergy (Verified 07/07/24 10:54) Unknown oxycodone (From Percocet) Allergy (Verified 07/07/24 10:54) Unknown Medications ???Medication ???Instructions ???Recorded ???Confirmed ???Type atorvastatin 10 mg tablet 10 mg PO DAILY 04/07/16 07/07/24 H istory coenzyme Q10 200 mg capsule (Co 200 mg PO DAILY 08/21/19 07/07/24 History Q-10) vitamin B comp and C no.3 15 mg-10 1 cap PO DAILY 08/21/19 07/07/24 History mg-50 mg-5 mg-300 mg capsule (B Complex Plus Vitamin C) levothyroxine 112 mcg tablet 112 mcg PO DAILY 10/28/20 07/07/24 History ergocalciferol (vitamin D2) 1,250 50,000 unit PO QWEEK 01/16/22 History mcg (50,000 unit) capsule blood sugar diagnostic (Accu-Chek #100 ea 05/04/22 07/07/24 Rx Guide test strips) lancing device with lancets kit #100 ea 05/04/22 07/07/24 Rx (Accu-Chek FastClix Lancing Device kit) mecobalamin (vitamin B12) 10,000 mcg IM MONTHLY 09/18/22 07/07/24 H istory mcg solution for injection alcohol swabs (Alcohol Prep Pads) 1 pad topical DAILY #200 ea 03/1907/07/24 Rx oxybutynin chloride 5 mg 5 mg PO DAILY 03/19/23 07/07/24 Hi story tablet,extended release 24 hr warfarin 2 mg tablet 2 mg PO DAILY 03/19/23 07/07/24 Hi story metoprolol succinate 25 mg 25 mg PO DAILY 09/25/23 07/07/24 H istory tablet,extended release 24 hr valsartan 80 mg tablet 80 mg PO DAILY 04/03/24 07/07/24 H istory warfarin 1 mg tablet 1 mg PO .Wed 04/03/24 07/07/24 His beena Lawson U-100 Insulin 100 unit/mL 90 unit (0.9 mL) subcut DAILY #80 04/22/24 07/07/24 Rx subcutaneous solution (insulin mL lispro-aabc) Have you fallen in the past year?: Yes PFSH Medical History Mixed hyperlipidemia 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 Thyroid disease Carpal tunnel syndrome Cataracts, bilateral Cancer Hx of blood clots Bone fracture Back problem Arthritis Diabetes type 1, controlled Surgical History H/O ultrasound guided needle biopsy S/P skin biopsy History of total abdominal hysterectomy H/O colonoscopy H/O umbilical hernia repair Hx of cataract surgery History of carpal tunnel surgery H/O: Hx of appendectomy History of tonsillectomy Family History Mother Breast cancer Father Heart disease Social History Smoking Status: Former smoker second hand exposure: No alcohol intake: never substance use type: does not use HPI HPI Chief Complaint: diabetes f/u Details: JERICA AZUL, is a 84 F who presents to the office today for follow up. A1C is 6.7% She is using Medtronic insulin pump and Dexcom G7 CCGM. Upload shows excellent control. She has hypothyroidism and is taking levothyroxine. She is on ARB and statin. ROS Const Constitutional: Positive for fatigue; No weight change ENT ENT: No dizziness/vertigo Cardio Cardiology: No chest pain at rest, chest pain with exertion, shortness of breath or palpitations Skin Skin: No wounds Endo Endocrine: Positive for fatigue; No weight change Exam Const General: cooperative, healthy appearing, comfortable, no acute distress, well developed and not cushingoid Nutritional Appearance: well nourished Orientation: alert, awake and oriented x3 HENMT Head: normal to inspection Ears: hearing grossly normal bilaterally Nose: external nose normal Mo (more content not included)... Normal [facility] Comprehensive metabolic 2000 panelOrdered By: Martha Valentin on 07-01-2024 Albumin [Mass/Vol] 3.6 g/dL Low 3.9 - 4.9 g/dL [facility] ALP [Catalytic activity/Vol] 103 U/L 34 - 123 U/L [facility] ALT [Catalytic activity/Vol] 14 U/L 7 - 38 U/L [facility] Anion gap [Moles/Vol] 8 mmol/L 8 - 15 mmol/L [facility] AST [Catalytic activity/Vol] 22 U/L 13 - 35 U/L [facility] Bilirubin [Mass/Vol] 0.8 mg/dL 0.2 - 1 .3 mg/dL [facility] Calcium [Mass/Vol] 9 mg/dL 8.5 - 10. 2 mg/dL [facility] Chloride [Moles/Vol] 107 mmol/L 98 - 10 7 mmol/L [facility] CO2 [Moles/Vol] 25 mmol/L 22 - 30 mmol/L [facility] Creatinine [Mass/Vol] 1.01 mg/dL High 0.58 - 0.96 mg/dL [facility] GFR/1.73 sq M.predicted among non-blacks MDRD (S/P/Bld) [Vol rate/Area] 55 mL/min/{1.73_m2} Low - PINF [facility] Comment on above: Estimated Glomerular Filtration Rate (eGFR) is calculated using the 2020 CKD-EPI creatinine equation. This equation utilizes serum creatinine, sex, and age as parameters. The creatinine assay has traceable calibration to isotope dilution-mass spectrometry. Refer to KDIGO guidelines for clinical interpretation. In patients with unstable renal function, e.g. those with acute kidney injury, the eGFR may not accurately reflect actual GFR. Glucose [Mass/Vol] 127 mg/dL High 74 - 99 mg/dL [facility] Comment on above: The [place] [employer] (ADA) provides guidance for cutoff values for fasting glucose and random glucose. The ADA defines fasting as no caloric intake for at least 8 hours. Fasting plasma glucose results between 100 to 125 mg/dL indicate increased risk for diabetes (prediabetes). Fasting plasma glucose results greater than or equal to 126 mg/dL meet the criteria for diagnosis of diabetes. In the absence of unequivocal hyperglycemia, results should be confirmed by repeat testing. In a patient with classic symptoms of hyperglycemia or hyperglycemic crisis, random plasma glucose results greater than or equal to 200 mg/dL meet the criteria for diagnosis of diabetes. Reference: Standards of Medical Care in Diabetes 2016, [place] [employer]. Diabetes Care. 2016.39(Suppl 1). Interpretation and review of laboratory results Abnormal [facility] Potassium [Moles/Vol] 4 mmol/L 3.7 - 5.1 mmol/L [facility] Protein [Mass/Vol] 6.2 g/dL Low 6.3 - 8.0 g/dL [facility] Sodium [Moles/Vol] 140 mmol/L 136 - 144 mmol/L [facility] Urea nitrogen [Mass/Vol] 30 mg/dL High 7 - 21 mg/dL [facility] PT panel Coag (PPP)Ordered B y: Emily Castillo on 07-01-2024 INR Coag (PPP) [Relative time] 2.9 {INR} High 0.9 - 1.3 [facility] Comment on above: Vitamin K Antagonist (VKA) Therapeutic Range: INR 2 to 3 (Target INR of 2.5) Note: For patients treated with VKA drugs, such as warfarin, the [place] [employer] 2012 Guideline recommends a therapeutic INR range of 2 to 3 (target INR of 2.5). This recommendation includes high-risk patients with antiphospholipid syndrome with previous arterial or venous thromboembolism, current-generation mechanical or bioprosthetic aortic heart valve replacement. Note: Patients with mechanical aortic valve replacement and additional risk factors for thromboembolic events (atrial fibrillation, previous thromboembolism, LV dysfunction, hypercoagulable conditions) or an older generation mechanical AVR (i.e., ball in-Cage) or any mechanical MVR should have a INR therapeutic range of 2.5 to 3.5 (target INR of 3). Colin GH, et al. Chest 2012, 141:7S-47S Sagar RA, et al. [facility] 2017, 70: 252-289 Interpretation and review of laboratory results Abnormal [facility] PT Coag (PPP) [Time] 28 s High NINF [facility] Comprehensive metabolic 2000 panelon 06-03-2024 Albumin [Mass/Vol] 3.7 g/dL Low 3.9 - 4.9 g/dL [facility] ALP [Catalytic activity/Vol] 104 U/L 34 - 123 U/L [facility] ALT [Catalytic activity/Vol] 14 U/L 7 - 38 U/L [facility] Anion gap [Moles/Vol] 8 mmol/L 8 - 15 mmol/L [facility] AST [Catalytic activity/Vol] 25 U/L 13 - 35 U/L [facility] Bilirubin [Mass/Vol] 0.7 mg/dL 0.2 - 1 .3 mg/dL [facility] Calcium [Mass/Vol] 9 mg/dL 8.5 - 10. 2 mg/dL [facility] Chloride [Moles/Vol] 105 mmol/L 98 - 10 7 mmol/L [facility] CO2 [Moles/Vol] 26 mmol/L 22 - 30 mmol/L [facility] Creatinine [Mass/Vol] 0.88 mg/dL 0.58 - 0.96 mg/dL [facility] GFR/1.73 sq M.predicted among non-blacks MDRD (S/P/Bld) [Vol rate/Area] 65 mL/min/{1.73_m2} - PINF [facility] Comment on above: Estimated Glomerular Filtration Rate (eGFR) is calculated using the 2020 CKD-EPI creatinine equation. This equation utilizes serum creatinine, sex, and age as parameters. The creatinine assay has traceable calibration to isotope dilution-mass spectrometry. Refer to KDIGO guidelines for clinical interpretation. In patients with unstable renal function, e.g. those with acute kidney injury, the eGFR may not accurately reflect actual GFR. Glucose [Mass/Vol] 53 mg/dL Low 74 - 99 mg/dL [facility] Comment on above: The [place] [employer] (ADA) provides guidance for cutoff values for fasting glucose and random glucose. The ADA defines fasting as no caloric intake for at least 8 hours. Fasting plasma glucose results between 100 to 125 mg/dL indicate increased risk for diabetes (prediabetes). Fasting plasma glucose results greater than or equal to 126 mg/dL meet the criteria for diagnosis of diabetes. In the absence of unequivocal hyperglycemia, results should be confirmed by repeat testing. In a patient with classic symptoms of hyperglycemia or hyperglycemic crisis, random plasma glucose results greater than or equal to 200 mg/dL meet the criteria for diagnosis of diabetes. Reference: Standards of Medical Care in Diabetes 2016, [place] [employer]. Diabetes Care. 2016.39(Suppl 1). Interpretation and review of laboratory results Abnormal [facility] Potassium [Moles/Vol] 4 mmol/L 3.7 - 5.1 mmol/L [facility] Protein [Mass/Vol] 6.4 g/dL 6.3 - 8.0 g/dL [facility] Sodium [Moles/Vol] 139 mmol/L 136 - 144 mmol/L [facility] Urea nitrogen [Mass/Vol] 22 mg/dL High 7 - 21 mg/dL [facility] PT panel Coag (PPP)Ordered B y: Martha Valentin on 06-03-2024 INR Coag (PPP) [Relative time] 1.8 {INR} High 0.9 - 1.3 [facility] Comment on above: Vitamin K Antagonist (VKA) Therapeutic Range: INR 2 to 3 (Target INR of 2.5) Note: For patients treated with VKA drugs, such as warfarin, the [place] [employer] 2012 Guideline recommends a therapeutic INR range of 2 to 3 (target INR of 2.5). This recommendation includes high-risk patients with antiphospholipid syndrome with previous arterial or venous thromboembolism, current-generation mechanical or bioprosthetic aortic heart valve replacement. Note: Patients with mechanical aortic valve replacement and additional risk factors for thromboembolic events (atrial fibrillation, previous thromboembolism, LV dysfunction, hypercoagulable conditions) or an older generation mechanical AVR (i.e., ball in-Cage) or any mechanical MVR should have a INR therapeutic range of 2.5 to 3.5 (target INR of 3). Kaditt GH, et al. Chest 2012, 141:7S-47S Sagar RA, et al. JACC 2017, 70: 252-289 Interpretation and review of laboratory results Abnormal [facility] PT Coag (PPP) [Time] 17.8 s High NINF [facility] Comprehensive metabolic 2000 panelon 04-08-2024 Albumin [Mass/Vol] 3.7 g/dL Low 3.9 - 4.9 g/dL [facility] ALP [Catalytic activity/Vol] 101 U/L 34 - 123 U/L [facility] ALT [Catalytic activity/Vol] 15 U/L 7 - 38 U/L [facility] Anion gap [Moles/Vol] 9 mmol/L 8 - 15 mmol/L [facility] AST [Catalytic activity/Vol] 24 U/L 13 - 35 U/L [facility] Bilirubin [Mass/Vol] 0.8 mg/dL 0.2 - 1 .3 mg/dL [facility] Calcium [Mass/Vol] 9.2 mg/dL 8.5 - 10. 2 mg/dL [facility] Chloride [Moles/Vol] 105 mmol/L 98 - 10 7 mmol/L [facility] CO2 [Moles/Vol] 23 mmol/L 22 - 30 mmol/L [facility] Creatinine [Mass/Vol] 0.89 mg/dL 0.58 - 0.96 mg/dL [facility] GFR/1.73 sq M.predicted among non-blacks MDRD (S/P/Bld) [Vol rate/Area] 64 mL/min/{1.73_m2} - PINF [facility] Comment on above: Estimated Glomerular Filtration Rate (eGFR) is calculated using the 2020 CKD-EPI creatinine equation. This equation utilizes serum creatinine, sex, and age as parameters. The creatinine assay has traceable calibration to isotope dilution-mass spectrometry. Refer to KDIGO guidelines for clinical interpretation. In patients with unstable renal function, e.g. those with acute kidney injury, the eGFR may not accurately reflect actual GFR. Glucose [Mass/Vol] 283 mg/dL High 74 - 99 mg/dL [facility] Comment on above: The [place] [employer] (ADA) provides guidance for cutoff values for fasting glucose and random glucose. The ADA defines fasting as no caloric intake for at least 8 hours. Fasting plasma glucose results between 100 to 125 mg/dL indicate increased risk for diabetes (prediabetes). Fasting plasma glucose results greater than or equal to 126 mg/dL meet the criteria for diagnosis of diabetes. In the absence of unequivocal hyperglycemia, results should be confirmed by repeat testing. In a patient with classic symptoms of hyperglycemia or hyperglycemic crisis, random plasma glucose results greater than or equal to 200 mg/dL meet the criteria for diagnosis of diabetes. Reference: Standards of Medical Care in Diabetes 2016, [place] [employer]. Diabetes Care. 2016.39(Suppl 1). Interpretation and review of laboratory results Abnormal [facility] Potassium [Moles/Vol] 4.1 mmol/L 3.7 - 5.1 mmol/L [facility] Protein [Mass/Vol] 6.1 g/dL Low 6.3 - 8.0 g/dL [facility] Sodium [Moles/Vol] 137 mmol/L 136 - 144 mmol/L [facility] Urea nitrogen [Mass/Vol] 23 mg/dL High 7 - 21 mg/dL [facility] PT panel Coag (PPP)Ordered B y: Martha Valentin on 04-08-2024 INR Coag (PPP) [Relative time] 3.2 {INR} High 0.9 - 1.3 [facility] Comment on above: Vitamin K Antagonist (VKA) Therapeutic Range: INR 2 to 3 (Target INR of 2.5) Note: For patients treated with VKA drugs, such as warfarin, the [place] [employer] 2012 Guideline recommends a therapeutic INR range of 2 to 3 (target INR of 2.5). This recommendation includes high-risk patients with antiphospholipid syndrome with previous arterial or venous thromboembolism, current-generation mechanical or bioprosthetic aortic heart valve replacement. Note: Patients with mechanical aortic valve replacement and additional risk factors for thromboembolic events (atrial fibrillation, previous thromboembolism, LV dysfunction, hypercoagulable conditions) or an older generation mechanical AVR (i.e., ball in-Cage) or any mechanical MVR should have a INR therapeutic range of 2.5 to 3.5 (target INR of 3). Colin GH, et al. Chest 2012, 141:7S-47S Sagar RA, et al. JAC 2017, 70: 252-289 Interpretation and review of laboratory results Abnormal [facility] PT Coag (PPP) [Time] 31.5 s High NINF [facility] Endocrinology Visit Reporton 04-03-2024 Endocrinology Visit Report [facility] [address] [place] [address] OFFICE VISIT Date of Service: 04/03/24 MR#: [id number] Acct: [id number] Name: JERICA AZUL Rep #: [id number] : 1940 Provider: Grace Correa Age/Sex: 84/F [place] [facility] [place]: Signed Intake Vital Signs 12/27/23 10:30 04/03/24 10:13 Height 5 ft 2 in 5 ft 2 in Weight: 163 lb 4 oz 159 lb 4 oz BMI 29.8 29.1 BP 144/84 H 144/79 H Blood Pressure Location Lt brachial Position Sitting Pulse 79 88 Pulse Source Monitor Monitor Pulse Oximetry (%) 94 97 Oxygen Delivery Method room air room air Intake Visit Reasons: 3 M FU Chief Complaint: diabetes f/u Allergies acetaminophen (From Percocet) Allergy (Verified 04/03/24 10:20) Unknown Anesthetics - Amide Type - Select A Allergy (Verified 04/03/24 10:20) NEEDS FOLLOW-UP Anesthetics - Kalie Type- Parabens Allergy (Verified 04/03/24 10:20) NEEDS FOLLOW-UP codeine Allergy (Verified 04/03/24 10:20) Unknown meperidine (From Demerol) Allergy (Verified 04/03/24 10:20) Unknown midazolam HCl (From Versed) Allergy (Verified 04/03/24 10:20) Unknown oxycodone (From Percocet) Allergy (Verified 04/03/24 10:20) Unknown Medications ???Medication ???Instructions ???Recorded ???Confirmed ???Type atorvastatin 10 mg tablet 10 mg PO DAILY 04/07/16 04/03/24 H istory coenzyme Q10 200 mg capsule (Co 200 mg PO DAILY 08/21/19 04/03/24 History Q-10) vitamin B comp and C no.3 15 mg-10 1 cap PO DAILY 08/21/19 04/03/24 History mg-50 mg-5 mg-300 mg capsule (B Complex Plus Vitamin C) levothyroxine 112 mcg tablet 112 mcg PO DAILY 10/28/20 04/03/24 History ergocalciferol (vitamin D2) 1,250 50,000 unit PO QWEEK 01/16/22 History mcg (50,000 unit) capsule blood sugar diagnostic (Accu-Chek #100 ea 05/04/22 12/27/23 Rx Guide test strips) lancing device with lancets kit #100 ea 05/04/22 12/27/23 Rx (Accu-Chek FastClix Lancing Device kit) mecobalamin (vitamin B12) 10,000 mcg IM MONTHLY 09/18/22 04/03/24 H istory mcg solution for injection alcohol swabs (Alcohol Prep Pads) 1 pad topical DAILY #200 ea 03/1904/03/24 Rx oxybutynin chloride 5 mg 5 mg PO DAILY 03/19/23 04/03/24 Nagi story tablet,extended release 24 hr warfarin 2 mg tablet 2 mg PO DAILY 03/19/23 04/03/24 Nagi Lawson U-100 Insulin 100 unit/mL 90 unit (0.9 mL) subcut DAILY #80 09/25/23 04/03/24 Rx subcutaneous solution (insulin mL lispro-aabc) metoprolol succinate 25 mg 25 mg PO DAILY 09/25/23 04/03/24 H istory tablet,extended release 24 hr valsartan 80 mg tablet 80 mg PO DAILY 04/03/24 04/03/24 H istory warfarin 1 mg tablet 1 mg PO .Wed 04/03/24 04/03/24 His tory Have you fallen in the past year?: Yes PFSH Medical History Mixed hyperlipidemia 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 Thyroid disease Carpal tunnel syndrome Cataracts, bilateral Cancer Hx of blood clots Bone fracture Back problem Arthritis Diabetes type 1, controlled Surgical History H/O ultrasound guided needle biopsy S/P skin biopsy History of total abdominal hysterectomy H/O colonoscopy H/O umbilical hernia repair Hx of cataract surgery History of carpal tunnel surgery H/O: Hx of appendectomy History of tonsillectomy Family History Mother Breast cancer Father Heart disease Social History Smoking Status: Former smoker second hand exposure: No alcohol intake: never substance use type: does not use HPI HPI Chief Complaint: diabetes f/u Details: JERICA AZUL, is a 84 F who presents to the office today for follow up. A1C is 7% She is using insulin pump and CGM in manual mode. Upload shows controlled blood sugars. She has known retinopathy, stable. She has hypothyroidism and is taking levothyroxine. 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 ROS Const Constitutional: No fatigue or weight change ENT ENT: No dizziness/vertigo Cardio Cardiology: No chest pain at rest, chest pain with exertion, shortness of breath or palpitations Skin Skin: No wounds Endo Endocrine: No fatigue or weight change Exam Const General: cooperative, healthy appearing, comfortable, no acute distress, well developed and not cushingoid Nutritional Appearance: well nourished Orientation: alert, awake and oriented x3 HENMT Head: normal to inspection Ears: hearing grossly normal bilaterally Nose: external nose normal (more content not included)... Normal [facility] CBC W Auto Differential pane l (Bld)on 03-11-2024 Basophils (Bld) [#/Vol] 0.03 10*3/uL [facility] Basophils/100 WBC (Bld) 0.5 % [facility] Differential cell count method Nom (Bld) Auto [facility] Eosinophils (Bld) [#/Vol] 0.22 10*3/uL [facility] Eosinophils/100 WBC (Bld) 3.5 % [facility] Erythrocyte distribution width (RBC) [Ratio] 14.9 % 11.5 - 15.0 % [facility] Hematocrit (Bld) [Volume fraction] 39.6 % 36.0 - 46.0 % [facility] Hemoglobin (Bld) [Mass/Vol] 13.1 g/dL 11.5 - 15.5 g/dL [facility] Immature granulocytes (Bld) [#/Vol] [facility] Immature granulocytes/100 WBC (Bld) 0.3 % [facility] Lymphocytes (Bld) [#/Vol] 1.12 10*3/uL [facility] Lymphocytes/100 WBC (Bld) 17.7 % [facility] MCH (RBC) [Entitic mass] 30.9 pg 26.0 - 34.0 pg [facility] MCHC (RBC) [Mass/Vol] 33.1 g/dL 30.5 - 36.0 g/dL [facility] MCV (RBC) [Entitic vol] 93.4 fL 80.0 - 100.0 fL [facility] Monocytes (Bld) [#/Vol] 0.47 10*3/uL [facility] Monocytes/100 WBC (Bld) 7.4 % [facility] Neutrophils (Bld) [#/Vol] 4.45 10*3/uL [facility] Neutrophils/100 WBC (Bld) 70.6 % [facility] Nucleated RBC (Bld) [#/Vol] [facility] Nucleated RBC/100 WBC (Bld) [Ratio] 0.0 % /100 WBC [facility] Platelet mean volume (Bld) [Entitic vol] 9.9 fL 9.0 - 12.7 fL [facility] Platelets (Bld) [#/Vol] 240 10*3/uL [facility] RBC (Bld) [#/Vol] 4.24 10*6/uL 3.90 - 5.2 0 m/uL [facility] WBC (Bld) [#/Vol] 6.31 10*3/uL [facility] Comprehensive metabolic 2000 panelon 02-12-2024 Albumin [Mass/Vol] 3.8 g/dL Low 3.9 - 4.9 g/dL [facility] ALP [Catalytic activity/Vol] 106 U/L 34 - 123 U/L [facility] ALT [Catalytic activity/Vol] 13 U/L 7 - 38 U/L [facility] Anion gap [Moles/Vol] 12 mmol/L 8 - 15 mmol/L [facility] AST [Catalytic activity/Vol] 23 U/L 13 - 35 U/L [facility] Bilirubin [Mass/Vol] 1.1 mg/dL 0.2 - 1 .3 mg/dL [facility] Calcium [Mass/Vol] 9.6 mg/dL 8.5 - 10. 2 mg/dL [facility] Chloride [Moles/Vol] 106 mmol/L 98 - 10 7 mmol/L [facility] CO2 [Moles/Vol] 22 mmol/L 22 - 30 mmol/L [facility] Creatinine [Mass/Vol] 1.01 mg/dL High 0.58 - 0.96 mg/dL [facility] GFR/1.73 sq M.predicted among non-blacks MDRD (S/P/Bld) [Vol rate/Area] 55 mL/min/{1.73_m2} Low - PINF [facility] Comment on above: Estimated Glomerular Filtration Rate (eGFR) is calculated using the 2020 CKD-EPI creatinine equation. This equation utilizes serum creatinine, sex, and age as parameters. The creatinine assay has traceable calibration to isotope dilution-mass spectrometry. Refer to KDIGO guidelines for clinical interpretation. In patients with unstable renal function, e.g. those with acute kidney injury, the eGFR may not accurately reflect actual GFR. Glucose [Mass/Vol] 133 mg/dL High 74 - 99 mg/dL [facility] Comment on above: The [place] [employer] Association (ADA) provides guidance for cutoff values for fasting glucose and random glucose. The ADA defines fasting as no caloric intake for at least 8 hours. Fasting plasma glucose results between 100 to 125 mg/dL indicate increased risk for diabetes (prediabetes). Fasting plasma glucose results greater than or equal to 126 mg/dL meet the criteria for diagnosis of diabetes. In the absence of unequivocal hyperglycemia, results should be confirmed by repeat testing. In a patient with classic symptoms of hyperglycemia or hyperglycemic crisis, random plasma glucose results greater than or equal to 200 mg/dL meet the criteria for diagnosis of diabetes. Reference: Standards of Medical Care in Diabetes 2016, [place] [employer]. Diabetes Care. 2016.39(Suppl 1). Interpretation and review of laboratory results Abnormal [facility] Potassium [Moles/Vol] 3.9 mmol/L 3.7 - 5.1 mmol/L [facility] Protein [Mass/Vol] 6.7 g/dL 6.3 - 8.0 g/dL [facility] Sodium [Moles/Vol] 140 mmol/L 136 - 144 mmol/L [facility] Urea nitrogen [Mass/Vol] 21 mg/dL 7 - 21 mg/dL [facility] PT panel Coag (PPP)Ordered B y: Emily Castillo on 02-12-2024 INR Coag (PPP) [Relative time] 4.2 {INR} High 0.9 - 1.3 [facility] Comment on above: Vitamin K Antagonist (VKA) Therapeutic Range: INR 2 to 3 (Target INR of 2.5) Note: For patients treated with VKA drugs, such as warfarin, the [place] [employer] 2012 Guideline recommends a therapeutic INR range of 2 to 3 (target INR of 2.5). This recommendation includes high-risk patients with antiphospholipid syndrome with previous arterial or venous thromboembolism, current-generation mechanical or bioprosthetic aortic heart valve replacement. Note: Patients with mechanical aortic valve replacement and additional risk factors for thromboembolic events (atrial fibrillation, previous thromboembolism, LV dysfunction, hypercoagulable conditions) or an older generation mechanical AVR (i.e., ball in-Cage) or any mechanical MVR should have a INR therapeutic range of 2.5 to 3.5 (target INR of 3). Colin GH, et al. Chest 2012, 141:7S-47S Sagar RA, et al. [facility] 2017, 70: 252-289 Interpretation and review of laboratory results Abnormal [facility] PT Coag (PPP) [Time] 40.5 s High NINF [facility] Urinalysis complete panel (U )on 02-12-2024 Bacteria LM.HPF (Urine sed) [#/Area] Negative Negative /HPF [facility] Bilirubin Ql (U) Negative Negative [facility] Clarity (Unsp spec) Clear Clear [facility] Color (U) Yellow Yellow [facility] Epithelial cells LM.HPF (Urine sed) [#/Area] None Seen /HPF [facility] Glucose Test strip (U) [Mass/Vol] Trace Abnormal Negative [facility] Hemoglobin Ql (U) Negative Negative [facility] Hyaline casts (Urine sed) [#/Area] 1-3 /LPF Abnormal 0 /LPF [facility] Interpretation and review of laboratory results Abnormal [facility] Ketones Ql (U) Negative Negative [facility] Leukocyte esterase Test strip Ql (U) 2+ Abnormal Negative [facility] Nitrite Ql (U) Negative Negative [facility] pH (U) 5.5 [pH] NINF - 8.5 [facility] Protein (U) [Mass/Vol] Negative Negative [facility] RBC LM.HPF (Urine sed) [#/Area] 6-10 /HPF Abnormal 0-2 /HPF [facility] Specific gravity (U) [Rel density] 1.020 1.005 - 1.030 [facility] Urobilinogen Ql (U) 0.2 EU/dL 0.2-1.0 EU/dL [facility] WBC LM.HPF (Urine sed) [#/Area] 11-20 /HPF Abnormal 0-5 /HPF [facility] This test was marlen sumner and its performance characteristics determined by [facility]'s [facility] Pathology and Laboratory [facility] [place] (RT-[facility]). It has not been cleared or approved by the FDA. -[facility] is regulated under CLIA as qualified to perform high-complexity testing. This test is used for clinical purposes. It should not be regarded as investigational or for research. [facility] INR (POC)on 01-29-2024 INR Coag (PPP) [Relative time] 2.4 {INR} High 0.8 - 1.2 [facility] Internal Quality Check Acceptable [facility] Interpretation and review of laboratory results Abnormal [facility] Location:[facility], [address], [place], [address] [facility] POINT OF CARE [facility] Comprehensive metabolic 2000 panelon 01-15-2024 Albumin [Mass/Vol] 3.6 g/dL Low 3.9 - 4.9 g/dL [facility] ALP [Catalytic activity/Vol] 96 U/L 34 - 123 U/L [facility] ALT [Catalytic activity/Vol] 13 U/L 7 - 38 U/L [facility] Anion gap [Moles/Vol] 9 mmol/L 8 - 15 mmol/L [facility] AST [Catalytic activity/Vol] 20 U/L 13 - 35 U/L [facility] Bilirubin [Mass/Vol] 1.1 mg/dL 0.2 - 1 .3 mg/dL [facility] Calcium [Mass/Vol] 8.9 mg/dL 8.5 - 10. 2 mg/dL [facility] Chloride [Moles/Vol] 104 mmol/L 98 - 10 7 mmol/L [facility] CO2 [Moles/Vol] 24 mmol/L 22 - 30 mmol/L [facility] Creatinine [Mass/Vol] 0.86 mg/dL 0.58 - 0.96 mg/dL [facility] GFR/1.73 sq M.predicted among non-blacks MDRD (S/P/Bld) [Vol rate/Area] 67 mL/min/{1.73_m2} - PINF [facility] Comment on above: Estimated Glomerular Filtration Rate (eGFR) is calculated using the 2020 CKD-EPI creatinine equation. This equation utilizes serum creatinine, sex, and age as parameters. The creatinine assay has traceable calibration to isotope dilution-mass spectrometry. Refer to KDIGO guidelines for clinical interpretation. In patients with unstable renal function, e.g. those with acute kidney injury, the eGFR may not accurately reflect actual GFR. Glucose [Mass/Vol] 171 mg/dL High 74 - 99 mg/dL [facility] Comment on above: The [place] [employer] Association (ADA) provides guidance for cutoff values for fasting glucose and random glucose. The ADA defines fasting as no caloric intake for at least 8 hours. Fasting plasma glucose results between 100 to 125 mg/dL indicate increased risk for diabetes (prediabetes). Fasting plasma glucose results greater than or equal to 126 mg/dL meet the criteria for diagnosis of diabetes. In the absence of unequivocal hyperglycemia, results should be confirmed by repeat testing. In a patient with classic symptoms of hyperglycemia or hyperglycemic crisis, random plasma glucose results greater than or equal to 200 mg/dL meet the criteria for diagnosis of diabetes. Reference: Standards of Medical Care in Diabetes 2016, [place] [employer]. Diabetes Care. 2016.39(Suppl 1). Interpretation and review of laboratory results Abnormal [facility] Potassium [Moles/Vol] 4.1 mmol/L 3.7 - 5.1 mmol/L [facility] Protein [Mass/Vol] 6.3 g/dL 6.3 - 8.0 g/dL [facility] Sodium [Moles/Vol] 137 mmol/L 136 - 144 mmol/L [facility] Urea nitrogen [Mass/Vol] 20 mg/dL 7 - 21 mg/dL [facility] PT panel Coag (PPP)Ordered B y: Martha Valentin on 01-15-2024 INR Coag (PPP) [Relative time] 1.9 {INR} High 0.9 - 1.3 [facility] Comment on above: Vitamin K Antagonist (VKA) Therapeutic Range: INR 2 to 3 (Target INR of 2.5) Note: For patients treated with VKA drugs, such as warfarin, the [place] [employer] 2012 Guideline recommends a therapeutic INR range of 2 to 3 (target INR of 2.5). This recommendation includes high-risk patients with antiphospholipid syndrome with previous arterial or venous thromboembolism, current-generation mechanical or bioprosthetic aortic heart valve replacement. Note: Patients with mechanical aortic valve replacement and additional risk factors for thromboembolic events (atrial fibrillation, previous thromboembolism, LV dysfunction, hypercoagulable conditions) or an older generation mechanical AVR (i.e., ball in-Cage) or any mechanical MVR should have a INR therapeutic range of 2.5 to 3.5 (target INR of 3). Colin GH, et al. Chest 2012, 141:7S-47S Sagar RA, et al. [facility] 2017, 70: 252-289 Interpretation and review of laboratory results Abnormal [facility] PT Coag (PPP) [Time] 18.2 s High NINF [facility] Urinalysis complete panel (U )on 01-15-2024 Bacteria LM.HPF (Urine sed) [#/Area] Negative Negative /HPF [facility] Bilirubin Ql (U) Negative Negative [facility] Clarity (Unsp spec) Clear Clear [facility] Color (U) Yellow Yellow [facility] Epithelial cells LM.HPF (Urine sed) [#/Area] None Seen /HPF [facility] Glucose Test strip (U) [Mass/Vol] 1+ Abnormal Negative [facility] Hemoglobin Ql (U) Trace Abnormal Negative [facility] Hyaline casts (Urine sed) [#/Area] 0 /[LPF] 0 /LPF [facility] Interpretation and review of laboratory results Abnormal [facility] Ketones Ql (U) Negative Negative [facility] Leukocyte esterase Test strip Ql (U) 1+ Abnormal Negative [facility] Nitrite Ql (U) Negative Negative [facility] pH (U) 6.0 [pH] NINF - 8.5 [facility] Protein (U) [Mass/Vol] Negative Negative [facility] RBC LM.HPF (Urine sed) [#/Area] 0-2 /HPF 0-2 /HPF [facility] Specific gravity (U) [Rel density] 1.010 1.005 - 1.030 [facility] Urobilinogen Ql (U) 0.2 EU/dL 0.2-1.0 EU/dL [facility] WBC LM.HPF (Urine sed) [#/Area] 0-5 /HPF 0-5 /HPF [facility] This test was marlen ped and its performance characteristics determined by [facility]'s [facility] [place] ([facility]). It has not been cleared or approved by the FDA. RT[facility] is regulated under CLIA as qualified to perform high-complexity testing. This test is used for clinical purposes. It should not be regarded as investigational or for research. [facility] Endocrinology Visit Reporton 12-27-2023 Endocrinology Visit Report [facility] [address] [place] [address] OFFICE VISIT Date of Service: 12/27/23 MR#: [id number] Acct: [id number] Name: JERICA AZUL Rep #: [id number] : 1940 Provider: Grace Correa Age/Sex: 83/F Location: [facility] Status: Signed Intake Vital Signs 09/25/23 10:29 10/21/23 10:09 12/27/23 10:30 Height 5 ft 2 in 5 ft 2 in 5 ft 2 in Weight: 163 lb 4 oz BMI 29.8 BP 144/84 H Pulse 79 Pulse Source Monitor Pulse Oximetry (%) 94 Oxygen Delivery Method room air Intake Visit Reasons: 3 M FU Chief Complaint: diabetes f/u Is patient in pain?: No Allergies acetaminophen (From Percocet) Allergy (Verified 10/21/23 10:18) Unknown Anesthetics - Amide Type - Select A Allergy (Verified 10/21/23 10:18) NEEDS FOLLOW-UP Anesthetics - Kalie Type- Parabens Allergy (Verified 10/21/23 10:18) NEEDS FOLLOW-UP codeine Allergy (Verified 10/21/23 10:18) Unknown meperidine (From Demerol) Allergy (Verified 10/21/23 10:18) Unknown midazolam HCl (From Versed) Allergy (Verified 10/21/23 10:18) Unknown oxycodone (From Percocet) Allergy (Verified 10/21/23 10:18) Unknown Medications ???Medication ???Instructions ???Recorded ???Confirmed ???Type atorvastatin 10 mg tablet 10 mg PO DAILY 04/07/16 12/27/23 History valsartan 80 mg tablet 80 mg PO DAILY 04/07/16 12/27/23 History coenzyme Q10 200 mg capsule (Co 200 mg PO DAILY 08/21/19 12/27/23 History Q-10) vitamin B comp and C no.3 15 mg-10 1 cap PO DAILY 08/21/19 12/27/23 History mg-50 mg-5 mg-300 mg capsule (B Complex Plus Vitamin C) estradiol 0.01% (0.1 mg/gram) 1 g vaginal DAILY 05/14/20 12/27/23 History vaginal cream levothyroxine 112 mcg tablet 112 mcg PO DAILY 10/28/20 12/27/23 History ergocalciferol (vitamin D2) 1,250 50,000 unit PO QWEEK 01/16/22 12/27/23 History mcg (50,000 unit) capsule blood sugar diagnostic (Accu-Chek #100 ea 05/04/22 12/27/23 Rx Guide test strips) lancing device with lancets kit #100 ea 02/23/23 10/17/24 Rx (Accu-Chek FastClix Lancing Device kit) mecobalamin (vitamin B12) 10,000 mcg IM MONTHLY 09/18/22 12/27/23 History mcg solution for injection alcohol swabs (Alcohol Prep Pads) 1 pad topical DAILY #200 ea 03/19/23 12/27/23 Rx oxybutynin chloride 5 mg 5 mg PO DAILY 03/19/23 12/27/23 History tablet,extended release 24 hr warfarin 1 mg tablet 1 mg PO .WENFRI 03/19/23 12/27/23 History warfarin 2 mg tablet 2 mg PO DAILY 03/19/23 12/27/23 History Lyumjev U-100 Insulin 100 unit/mL 90 unit (0.9 mL) subcut DAILY #80 09/25/23 12/27/23 Rx subcutaneous solution (insulin mL lispro-aabc) metoprolol succinate 25 mg 25 mg PO DAILY 09/25/23 12/27/23 History tablet,extended release 24 hr tramadol 50 mg tablet 50 mg PO Q4H PRN PRN Pain 3 days 10/21/23 12/27/23 Rx #20 tabs Have you fallen in the past year?: Yes (tripped down 2 stairs) PFSH Medical History Mixed hyperlipidemia 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 Thyroid disease Carpal tunnel syndrome Cataracts, bilateral Cancer Hx of blood clots Bone fracture Back problem Arthritis Diabetes type 1, controlled Surgical History H/O ultrasound guided needle biopsy S/P skin biopsy History of total abdominal hysterectomy H/O colonoscopy H/O umbilical hernia repair Hx of cataract surgery History of carpal tunnel surgery H/O: Hx of appendectomy History of tonsillectomy Family History Mother Breast cancer Father Heart disease Social History Smoking Status: Former smoker second hand exposure: No alcohol intake: never substance use type: does not use HPI HPI Chief Complaint: diabetes f/u Details: JERICA AZUL, is a 83 F who presents to the office today for follow up of diabetes type 1. A1C is 6.7% She is using old Medtronic insulin pump with Dexcom G7. CGM review shows good control with some highs and some lows. She doesn't want to upgrade until the Medtronic sensor doesn't have a transmitter. This is coming out soon. She has some retinopathy with some vision loss. She has hypothyroidism and hyperlipidemia. [facility] done at [facility]. ROS Const Constitutional: No fatigue, weight change or change in appetite Eyes Eyes: No change in vision ENT ENT: No dizziness/vertigo or difficulty swallowing Cardio Cardiology: No chest pain at rest, chest pain with exertion, shortness of breath or palpitations Musc Musculoskeletal: No abnormal gait, joint pain, numbness (more content not included)... Normal [facility] Comprehensive metabolic 2000 panelon 12-11-2023 Albumin [Mass/Vol] 3.8 g/dL Low 3.9 - 4.9 g/dL [facility] ALP [Catalytic activity/Vol] 99 U/L 34 - 123 U/L [facility] ALT [Catalytic activity/Vol] 15 U/L 7 - 38 U/L [facility] Anion gap [Moles/Vol] 13 mmol/L 8 - 15 mmol/L [facility] AST [Catalytic activity/Vol] 23 U/L 13 - 35 U/L [facility] Bilirubin [Mass/Vol] 0.9 mg/dL 0.2 - 1 .3 mg/dL [facility] Calcium [Mass/Vol] 9.1 mg/dL 8.5 - 10. 2 mg/dL [facility] Chloride [Moles/Vol] 108 mmol/L High 98 - 10 7 mmol/L [facility] CO2 [Moles/Vol] 23 mmol/L 22 - 30 mmol/L [facility] Creatinine [Mass/Vol] 0.98 mg/dL High 0.58 - 0.96 mg/dL [facility] GFR/1.73 sq M.predicted among non-blacks MDRD (S/P/Bld) [Vol rate/Area] 57 mL/min/{1.73_m2} Low - PINF [facility] Comment on above: Estimated Glomerular Filtration Rate (eGFR) is calculated using the 2020 CKD-EPI creatinine equation. This equation utilizes serum creatinine, sex, and age as parameters. The creatinine assay has traceable calibration to isotope dilution-mass spectrometry. Refer to KDIGO guidelines for clinical interpretation. In patients with unstable renal function, e.g. those with acute kidney injury, the eGFR may not accurately reflect actual GFR. Glucose [Mass/Vol] 80 mg/dL 74 - 99 mg/dL [facility] Comment on above: The [place] [employer] (ADA) provides guidance for cutoff values for fasting glucose and random glucose. The ADA defines fasting as no caloric intake for at least 8 hours. Fasting plasma glucose results between 100 to 125 mg/dL indicate increased risk for diabetes (prediabetes). Fasting plasma glucose results greater than or equal to 126 mg/dL meet the criteria for diagnosis of diabetes. In the absence of unequivocal hyperglycemia, results should be confirmed by repeat testing. In a patient with classic symptoms of hyperglycemia or hyperglycemic crisis, random plasma glucose results greater than or equal to 200 mg/dL meet the criteria for diagnosis of diabetes. Reference: Standards of Medical Care in Diabetes 2016, [place] [employer]. Diabetes Care. 2016.39(Suppl 1). Interpretation and review of laboratory results Abnormal [facility] Potassium [Moles/Vol] 4.4 mmol/L 3.7 - 5.1 mmol/L [facility] Protein [Mass/Vol] 6.6 g/dL 6.3 - 8.0 g/dL [facility] Sodium [Moles/Vol] 144 mmol/L 136 - 144 mmol/L [facility] Urea nitrogen [Mass/Vol] 24 mg/dL High 7 - 21 mg/dL [facility] PT panel Coag (PPP)Ordered B y: Emily Castillo on 12-11-2023 INR Coag (PPP) [Relative time] 2.3 {INR} High 0.9 - 1.3 [facility] Comment on above: Vitamin K Antagonist (VKA) Therapeutic Range: INR 2 to 3 (Target INR of 2.5) Note: For patients treated with VKA drugs, such as warfarin, the [place] [employer] 2012 Guideline recommends a therapeutic INR range of 2 to 3 (target INR of 2.5). This recommendation includes high-risk patients with antiphospholipid syndrome with previous arterial or venous thromboembolism, current-generation mechanical or bioprosthetic aortic heart valve replacement. Note: Patients with mechanical aortic valve replacement and additional risk factors for thromboembolic events (atrial fibrillation, previous thromboembolism, LV dysfunction, hypercoagulable conditions) or an older generation mechanical AVR (i.e., ball in-Cage) or any mechanical MVR should have a INR therapeutic range of 2.5 to 3.5 (target INR of 3). Colin BARNEY, et al. Chest 2012, 141:7S-47S Sagar PRINCE, et al. [facility] 2017, 70: 252-289 Interpretation and review of laboratory results Abnormal [facility] PT Coag (PPP) [Time] 22.5 s High NINF [facility] Comprehensive metabolic 2000 panelon 11-13-2023 Albumin [Mass/Vol] 3.4 g/dL Low 3.9 - 4.9 g/dL [facility] ALP [Catalytic activity/Vol] 89 U/L 34 - 123 U/L [facility] ALT [Catalytic activity/Vol] 13 U/L 7 - 38 U/L [facility] Anion gap [Moles/Vol] 9 mmol/L 8 - 15 mmol/L [facility] AST [Catalytic activity/Vol] 21 U/L 13 - 35 U/L [facility] Bilirubin [Mass/Vol] 0.8 mg/dL 0.2 - 1 .3 mg/dL [facility] Calcium [Mass/Vol] 8.9 mg/dL 8.5 - 10. 2 mg/dL [facility] Chloride [Moles/Vol] 109 mmol/L High 98 - 10 7 mmol/L [facility] CO2 [Moles/Vol] 25 mmol/L 22 - 30 mmol/L [facility] Creatinine [Mass/Vol] 0.88 mg/dL 0.58 - 0.96 mg/dL [facility] GFR/1.73 sq M.predicted among non-blacks MDRD (S/P/Bld) [Vol rate/Area] 65 mL/min/{1.73_m2} - PINF [facility] Comment on above: Estimated Glomerular Filtration Rate (eGFR) is calculated using the 2020 CKD-EPI creatinine equation. This equation utilizes serum creatinine, sex, and age as parameters. The creatinine assay has traceable calibration to isotope dilution-mass spectrometry. Refer to KDIGO guidelines for clinical interpretation. In patients with unstable renal function, e.g. those with acute kidney injury, the eGFR may not accurately reflect actual GFR. Glucose [Mass/Vol] 89 mg/dL 74 - 99 mg/dL [facility] Comment on above: The [place] [employer] (ADA) provides guidance for cutoff values for fasting glucose and random glucose. The ADA defines fasting as no caloric intake for at least 8 hours. Fasting plasma glucose results between 100 to 125 mg/dL indicate increased risk for diabetes (prediabetes). Fasting plasma glucose results greater than or equal to 126 mg/dL meet the criteria for diagnosis of diabetes. In the absence of unequivocal hyperglycemia, results should be confirmed by repeat testing. In a patient with classic symptoms of hyperglycemia or hyperglycemic crisis, random plasma glucose results greater than or equal to 200 mg/dL meet the criteria for diagnosis of diabetes. Reference: Standards of Medical Care in Diabetes 2016, [place] [employer]. Diabetes Care. 2016.39(Suppl 1). Interpretation and review of laboratory results Abnormal [facility] Potassium [Moles/Vol] 3.9 mmol/L 3.7 - 5.1 mmol/L [facility] Protein [Mass/Vol] 6.2 g/dL Low 6.3 - 8.0 g/dL [facility] Sodium [Moles/Vol] 143 mmol/L 136 - 144 mmol/L [facility] Urea nitrogen [Mass/Vol] 20 mg/dL 7 - 21 mg/dL [facility] PT panel Coag (PPP)Ordered B y: Martha Valentin on 11-13-2023 INR Coag (PPP) [Relative time] 3.5 {INR} High 0.9 - 1.3 [facility] Comment on above: Vitamin K Antagonist (VKA) Therapeutic Range: INR 2 to 3 (Target INR of 2.5) Note: For patients treated with VKA drugs, such as warfarin, the [place] [employer] 2012 Guideline recommends a therapeutic INR range of 2 to 3 (target INR of 2.5). This recommendation includes high-risk patients with antiphospholipid syndrome with previous arterial or venous thromboembolism, current-generation mechanical or bioprosthetic aortic heart valve replacement. Note: Patients with mechanical aortic valve replacement and additional risk factors for thromboembolic events (atrial fibrillation, previous thromboembolism, LV dysfunction, hypercoagulable conditions) or an older generation mechanical AVR (i.e., ball in-Cage) or any mechanical MVR should have a INR therapeutic range of 2.5 to 3.5 (target INR of 3). Colin BARNEY, et al. Chest 2012, 141:7S-47S Sagar PRINCE et al. [facility] 2017, 70: 252-289 Interpretation and review of laboratory results Abnormal [facility] PT Coag (PPP) [Time] 33.0 s High [facility] PT panel Coag (PPP)on 2023 PT Coag (PPP) [Time] 33 s High [facility] Emergency Department Summary on 10-21-2023 Emergency Department Summary [facility] Medical Records Department [address] [place] [address] Emergency Department Summary 10/21/23 MR#: [id number] Acct: [id number] Name: JERICA AZUL Rep #: [id number] : 1940 83 From: Dwight Gomez DO PCP: Dr. Melchor Washington DO Status:DEP ER Location: ED HPI History of Present Illness HPI Narrative: Patient presents with right hip pain that has been getting worse over the past 3 days. Patient states that it she bumped her right hip on a door jam 1 to 2 weeks ago. Patient denies any recent trauma. Patient states her pain is gradually getting worse. Patient describes it as aching. Patient states it is worse with weightbearing. Patient denies any paresthesias or weakness. Patient states nothing seems to help with her pain. 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 Thyroid disease Carpal tunnel syndrome Cataracts, bilateral Cancer Hx of blood clots Bone fracture Back problem Arthritis Diabetes type 1, controlled Home Medications ???Medication ???Instructions ???Recorded ???Last Taken ???Type atorvastatin 10 mg tablet 10 mg PO DAILY 04/07/16 04/06/16 18:00 History 10 MG valsartan 80 mg tablet 80 mg PO DAILY 04/07/16 04/06/16 18:00 History 80 MG coenzyme Q10 200 mg capsule (Co 200 mg PO DAILY 08/21/19 Unknown History Q-10) vitamin B comp and C no.3 15 mg-10 1 cap PO DAILY 08/21/19 Unknown History mg-50 mg-5 mg-300 mg capsule (B Complex Plus Vitamin C) estradiol 0.01% (0.1 mg/gram) 1 g vaginal DAILY 05/14/20 Unknown History vaginal cream levothyroxine 112 mcg tablet 112 mcg PO DAILY 10/28/20 Unknown History ergocalciferol (vitamin D2) 1,250 50,000 unit PO QWEEK 01/16/22 Unknown History mcg (50,000 unit) capsule blood sugar diagnostic (Accu-Chek #100 ea 05/04/22 Unknown Rx Guide test strips) lancing device with lancets kit #100 ea 05/04/22 Unknown Rx (Accu-Chek FastClix Lancing Device kit) mecobalamin (vitamin B12) 10,000 mcg IM MONTHLY 09/18/22 Unknown History mcg solution for injection alcohol swabs (Alcohol Prep Pads) 1 pad topical DAILY #200 ea 03/19/23 Unknown Rx oxybutynin chloride 5 mg 5 mg PO DAILY 03/19/23 Unknown History tablet,extended release 24 hr warfarin 1 mg tablet 1 mg PO .WENFRI 03/19/23 Unknown History warfarin 2 mg tablet 2 mg PO DAILY 03/19/23 Unknown History Lyumjev U-100 Insulin 100 unit/mL 90 unit (0.9 mL) subcut DAILY #80 09/25/23 Unknown Rx subcutaneous solution (insulin mL lispro-aabc) metoprolol succinate 25 mg 25 mg PO DAILY 09/25/23 Unknown History tablet,extended release 24 hr tramadol 50 mg tablet 50 mg PO Q4H PRN PRN Pain 3 days 10/21/23 Unknown Rx #20 tabs Allergy/AdvReac Type Severity Reaction Status Date / Time acetaminophen (From Percocet) Allergy Unknown Verified 10/21/23 10:18 Anesthetics - Amide Type - Allergy NEEDS Verified 10/21/23 10:18 Select A FOLLOW-UP Anesthetics - Kalie Type- Allergy NEEDS Verified 10/21/23 10:18 Parabens FOLLOW-UP codeine Allergy Unknown Verified 10/21/23 10:18 meperidine (From Demerol) Allergy Unknown Verified 10/21/23 10:18 midazolam HCl (From Versed) Allergy Unknown Verified 10/21/23 10:18 oxycodone (From Percocet) Allergy Unknown Verified 10/21/23 10:18 Family History Mother Breast cancer Father Heart disease Surgical History H/O ultrasound guided needle biopsy S/P skin biopsy History of total abdominal hysterectomy H/O colonoscopy H/O umbilical hernia repair Hx of cataract surgery History of carpal tunnel surgery H/O: Hx of appendectomy History of tonsillectomy Social History Smoking Status: Former smoker second hand exposure: No alcohol intake: never substance use type: does not use ROS ROS ED Constitutional Constitutional ED: Denies chills or fever(s) Eyes Eyes: Denies blurry vision or change in vision ENT ENT ED: Denies rhinorrhea or sore throat Cardiovascular Cardiovascular: Denies chest pain or palpitations Respiratory/Chest Respiratory/Chest: Denies cough or dyspnea Gastrointestinal Gastrointestinal: Denies nausea or vomiting Genitourinary Gen (more content not included)... Normal [facility] HIP, UNI W/ Pelvis 2-3 Views on 10-21-2023 HIP, UNI W/ Pelvis 2-3 Views [facility] Imaging Services [address], [place] [id number] HIP, UNI W/ Pelvis 2-3 Views MR#: [id number] Acct: [id number] Name: JERICA AZUL Rep #: [id number] : 1940 F 83 From: Ciera Sweeney MD PCP: Dr. Melchor Washington DO Status: REG ER Study: HIP, UNI W/ Pelvis 2-3 Views Date of Exam: 02/02 Exam# [id number] Ordering Dr: Dwight Gomez DO [id number] INDICATION: Injury/Pain EXAMINATION/TECHNIQUE: X-RAY - XR Hip Unilateral with Pelvis when performed; 2-3 Views COMPARISON: No relevant prior comparison study available FINDINGS: PELVIC BONES: No displaced fracture, destructive or sclerotic lesions. Note that overlapping bowel shadows may however obscure fine detail. Sacroiliac joints are unremarkable. No widening of the pubic symphysis. HIPS: There are bilateral degenerative changes of the hips. SOFT TISSUES: There are vascular calcifications. RAD/HIP, UNI W/ Pelvis 2-3 Views IMPRESSION: Degenerative changes of the hips. Atherosclerosis. Electronically Signed: Ciera Sweeney MD at 11:36 EDT , CC: Dr. Dwight Gomez, DO; Dr. Melchor Washington, DO Towboat Engineer: Signed Normal [facility] Comprehensive metabolic 2000 panelOrdered By: Martha Valentin on 10-16-2023 Albumin [Mass/Vol] 3.5 g/dL Low 3.9 - 4.9 g/dL [facility] ALP [Catalytic activity/Vol] 90 U/L 34 - 123 U/L [facility] ALT [Catalytic activity/Vol] 13 U/L 7 - 38 U/L [facility] Anion gap [Moles/Vol] 8 mmol/L 8 - 15 mmol/L [facility] AST [Catalytic activity/Vol] 21 U/L 13 - 35 U/L [facility] Bilirubin [Mass/Vol] 0.9 mg/dL 0.2 - 1 .3 mg/dL [facility] Calcium [Mass/Vol] 9.0 mg/dL 8.5 - 10. 2 mg/dL [facility] Chloride [Moles/Vol] 106 mmol/L 98 - 10 7 mmol/L [facility] CO2 [Moles/Vol] 25 mmol/L 22 - 30 mmol/L [facility] Creatinine [Mass/Vol] 0.97 mg/dL High 0.58 - 0.96 mg/dL [facility] GFR/1.73 sq M.predicted among non-blacks MDRD (S/P/Bld) [Vol rate/Area] 58 mL/min/{1.73_m2} Low - PINF [facility] Comment on above: Estimated Glomerular Filtration Rate (eGFR) is calculated using the 2020 CKD-EPI creatinine equation. This equation utilizes serum creatinine, sex, and age as parameters. The creatinine assay has traceable calibration to isotope dilution-mass spectrometry. Refer to KDIGO guidelines for clinical interpretation. In patients with unstable renal function, e.g. those with acute kidney injury, the eGFR may not accurately reflect actual GFR. Glucose [Mass/Vol] 180 mg/dL High 74 - 99 mg/dL [facility] Comment on above: The [place] Di[employer] Association (ADA) provides guidance for cutoff values for fasting glucose and random glucose. The ADA defines fasting as no caloric intake for at least 8 hours. Fasting plasma glucose results between 100 to 125 mg/dL indicate increased risk for diabetes (prediabetes). Fasting plasma glucose results greater than or equal to 126 mg/dL meet the criteria for diagnosis of diabetes. In the absence of unequivocal hyperglycemia, results should be confirmed by repeat testing. In a patient with classic symptoms of hyperglycemia or hyperglycemic crisis, random plasma glucose results greater than or equal to 200 mg/dL meet the criteria for diagnosis of diabetes. Reference: Standards of Medical Care in Diabetes 2016, [place] [employer]. Diabetes Care. 2016.39(Suppl 1). Interpretation and review of laboratory results Abnormal [facility] Potassium [Moles/Vol] 4.4 mmol/L 3.7 - 5.1 mmol/L [facility] Protein [Mass/Vol] 5.9 g/dL Low 6.3 - 8.0 g/dL [facility] Sodium [Moles/Vol] 139 mmol/L 136 - 144 mmol/L [facility] Urea nitrogen [Mass/Vol] 20 mg/dL 7 - 21 mg/dL [facility] PT panel Coag (PPP)Ordered B y: Patsy Talavera on 10-16-2023 INR Coag (PPP) [Relative time] 1.8 {INR} High 0.9 - 1.3 [facility] Comment on above: Vitamin K Antagonist (VKA) Therapeutic Range: INR 2 to 3 (Target INR of 2.5) Note: For patients treated with VKA drugs, such as warfarin, the [place] [employer] 2012 Guideline recommends a therapeutic INR range of 2 to 3 (target INR of 2.5). This recommendation includes high-risk patients with antiphospholipid syndrome with previous arterial or venous thromboembolism, current-generation mechanical or bioprosthetic aortic heart valve replacement. Note: Patients with mechanical aortic valve replacement and additional risk factors for thromboembolic events (atrial fibrillation, previous thromboembolism, LV dysfunction, hypercoagulable conditions) or an older generation mechanical AVR (i.e., ball in-Cage) or any mechanical MVR should have a INR therapeutic range of 2.5 to 3.5 (target INR of 3). Colin GH, et al. Chest 2012, 141:7S-47S Sagar RA, et al. [facility] 2017, 70: 252-289 Interpretation and review of laboratory results Abnormal [facility] PT Coag (PPP) [Time] 17.9 s High NINF [facility] Endocrinology Visit Reporton 09-25-2023 Endocrinology Visit Report [facility] [address] [place] [address] OFFICE VISIT Date of Service: 09/25/23 MR#: [id number] Acct: [id number] Name: JERICA AZUL Edil Rep #: [id number] : 1940 Provider: Grace Correa Age/Sex: 83/F Location: [facility] Status: Signed Intake Vital Signs 06/18/23 10:29 09/25/23 10:29 Height 5 ft 2 in 5 ft 2 in Weight: 165 lb 164 lb BMI 30.2 29.9 BP 147/76 H 137/81 H Blood Pressure Location Lt brachial Lt brachial Position Sitting Sitting Pulse 80 81 Pulse Source Monitor Monitor Temp 98.6 F Temp Source Temporal Pulse Oximetry (%) 93 98 Oxygen Delivery Method room air room air Intake Visit Reasons: 3 M FU Chief Complaint: diabetes f/u Car Dispatcher Required: No Accompanied by: Self Is patient in pain?: Yes (Shoulder/Back) Pain scale (1-10): 5 Allergies acetaminophen (From Percocet) Allergy (Verified 09/25/23 10:33) Unknown Anesthetics - Amide Type - Select A Allergy (Verified 09/25/23 10:33) NEEDS FOLLOW-UP Anesthetics - Kalie Type- Parabens Allergy (Verified 09/25/23 10:33) NEEDS FOLLOW-UP codeine Allergy (Verified 09/25/23 10:33) Unknown meperidine (From Demerol) Allergy (Verified 09/25/23 10:33) Unknown midazolam HCl (From Versed) Allergy (Verified 09/25/23 10:33) Unknown oxycodone (From Percocet) Allergy (Verified 09/25/23 10:33) Unknown Medications ???Medication ???Instructions ???Recorded ???Confirmed ???Type atorvastatin 10 mg tablet 10 mg PO DAILY 04/07/16 09/25/23 History valsartan 80 mg tablet 80 mg PO DAILY 04/07/16 09/25/23 History coenzyme Q10 200 mg capsule (Co 200 mg PO DAILY 08/21/19 09/25/23 History Q-10) vitamin B comp and C no.3 15 mg-10 1 cap PO DAILY 08/21/19 09/25/23 History mg-50 mg-5 mg-300 mg capsule (B Complex Plus Vitamin C) estradiol 0.01% (0.1 mg/gram) 1 g vaginal DAILY 05/14/20 09/25/23 History vaginal cream levothyroxine 112 mcg tablet 112 mcg PO DAILY 10/28/20 09/25/23 History ergocalciferol (vitamin D2) 1,250 50,000 unit PO QWEEK 01/16/22 09/25/23 History mcg (50,000 unit) capsule blood sugar diagnostic (Accu-Chek #100 ea 05/04/22 09/25/23 Rx Guide test strips) lancing device with lancets kit #100 ea 05/04/22 09/25/23 Rx (Accu-Chek FastClix Lancing Device kit) mecobalamin (vitamin B12) 10,000 mcg IM MONTHLY 09/18/22 09/25/23 History mcg solution for injection alcohol swabs (Alcohol Prep Pads) 1 pad topical DAILY #200 ea 03/19/23 09/25/23 Rx oxybutynin chloride 5 mg 5 mg PO DAILY 03/19/23 09/25/23 History tablet,extended release 24 hr warfarin 1 mg tablet 1 mg PO .WENFRI 03/19/23 09/25/23 History warfarin 2 mg tablet 2 mg PO DAILY 03/19/23 09/25/23 History Lyumjev U-100 Insulin 100 unit/mL 90 unit (0.9 mL) subcut DAILY #80 09/25/23 09/25/23 Rx subcutaneous solution (insulin mL lispro-aabc) metoprolol succinate 25 mg 25 mg PO DAILY 09/25/23 09/25/23 History tablet,extended release 24 hr Have you fallen in the past year?: No PFSH Medical History Mixed hyperlipidemia 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 Thyroid disease Carpal tunnel syndrome Cataracts, bilateral Cancer Hx of blood clots Bone fracture Back problem Arthritis Diabetes type 1, controlled Surgical History H/O ultrasound guided needle biopsy S/P skin biopsy History of total abdominal hysterectomy H/O colonoscopy H/O umbilical hernia repair Hx of cataract surgery History of carpal tunnel surgery H/O: Hx of appendectomy History of tonsillectomy Family History Mother Breast cancer Father Heart disease Social History Smoking Status: Former smoker second hand exposure: No alcohol intake: never substance use type: does not use HPI HPI Chief Complaint: diabetes f/u Details: JERICA AZUL, is a 83 F who presents to the office today for follow up. A1C is 6.4% She is using old Medtronic insulin pump with Dexcom G7. CGM review shows good control with some highs and some lows. She doesn't want to upgrade until the Medtronic sensor doesn't have a transmitter. She has some retinopathy with some vision loss. She is worried about not being able to drive in the future if things get worse. She has hypothyroidism and hyperlipidemia. [facility] done at [facility]. Exam Const General: cooperative, healthy appearing, comfortable, no acute distress, well developed and not cushingoid Nutritional Appearance: well nourished Orientation: alert, awake and oriented x (more content not included)... Normal [facility] Comprehensive metabolic 2000 panelOrdered By: Martha Valentin on 09-18-2023 Albumin [Mass/Vol] 3.6 g/dL Low 3.9 - 4.9 g/dL [facility] ALP [Catalytic activity/Vol] 108 U/L 34 - 123 U/L [facility] ALT [Catalytic activity/Vol] 12 U/L 7 - 38 U/L [facility] Anion gap [Moles/Vol] 7 mmol/L Low 8 - 15 mmol/L [facility] AST [Catalytic activity/Vol] 20 U/L 13 - 35 U/L [facility] Bilirubin [Mass/Vol] 0.8 mg/dL 0.2 - 1 .3 mg/dL [facility] Calcium [Mass/Vol] 8.7 mg/dL 8.5 - 10. 2 mg/dL [facility] Chloride [Moles/Vol] 107 mmol/L 98 - 10 7 mmol/L [facility] CO2 [Moles/Vol] 26 mmol/L 22 - 30 mmol/L [facility] Creatinine [Mass/Vol] 0.88 mg/dL 0.58 - 0.96 mg/dL [facility] GFR/1.73 sq M.predicted among non-blacks MDRD (S/P/Bld) [Vol rate/Area] 65 mL/min/{1.73_m2} - PINF [facility] Comment on above: Estimated Glomerular Filtration Rate (eGFR) is calculated using the 2020 CKD-EPI creatinine equation. This equation utilizes serum creatinine, sex, and age as parameters. The creatinine assay has traceable calibration to isotope dilution-mass spectrometry. Refer to KDIGO guidelines for clinical interpretation. In patients with unstable renal function, e.g. those with acute kidney injury, the eGFR may not accurately reflect actual GFR. Glucose [Mass/Vol] 203 mg/dL High 74 - 99 mg/dL [facility] Comment on above: The [place] Di[employer] s Association (ADA) provides guidance for cutoff values for fasting glucose and random glucose. The ADA defines fasting as no caloric intake for at least 8 hours. Fasting plasma glucose results between 100 to 125 mg/dL indicate increased risk for diabetes (prediabetes). Fasting plasma glucose results greater than or equal to 126 mg/dL meet the criteria for diagnosis of diabetes. In the absence of unequivocal hyperglycemia, results should be confirmed by repeat testing. In a patient with classic symptoms of hyperglycemia or hyperglycemic crisis, random plasma glucose results greater than or equal to 200 mg/dL meet the criteria for diagnosis of diabetes. Reference: Standards of Medical Care in Diabetes 2016, [place] [employer]. Diabetes Care. 2016.39(Suppl 1). Interpretation and review of laboratory results Abnormal [facility] Potassium [Moles/Vol] 4.0 mmol/L 3.7 - 5.1 mmol/L [facility] Protein [Mass/Vol] 6.2 g/dL Low 6.3 - 8.0 g/dL [facility] Sodium [Moles/Vol] 140 mmol/L 136 - 144 mmol/L [facility] Urea nitrogen [Mass/Vol] 20 mg/dL 7 - 21 mg/dL [facility] No Panel InformationOrdered By: Marhta Valentin on 09-18-2023 [facility] PT panel Coag (PPP)Ordered B y: Martha Valentin on 09-18-2023 INR Coag (PPP) [Relative time] 3.8 {INR} High 0.9 - 1.3 [facility] Comment on above: Vitamin K Antagonist (VKA) Therapeutic Range: INR 2 to 3 (Target INR of 2.5) Note: For patients treated with VKA drugs, such as warfarin, the [place] [employer] 2012 Guideline recommends a therapeutic INR range of 2 to 3 (target INR of 2.5). This recommendation includes high-risk patients with antiphospholipid syndrome with previous arterial or venous thromboembolism, current-generation mechanical or bioprosthetic aortic heart valve replacement. Note: Patients with mechanical aortic valve replacement and additional risk factors for thromboembolic events (atrial fibrillation, previous thromboembolism, LV dysfunction, hypercoagulable conditions) or an older generation mechanical AVR (i.e., ball in-Cage) or any mechanical MVR should have a INR therapeutic range of 2.5 to 3.5 (target INR of 3). Colin GH, et al. Chest 2012, 141:7S-47S Sagar RA, et al. [facility] 2017, 70: 252-289 Interpretation and review of laboratory results Abnormal [facility] PT Coag (PPP) [Time] 35.7 s High NINF [facility] PT panel Coag (PPP)on 2023 INR Coag (Bld) [Relative time] 3.8 {INR} [facility] CA 125on 08-21-2023 Cancer Ag 125 Qn 24 [arb'U]/mL NINF - 39 U/mL [facility] Comment on above: CA 125 test methodol ogy used is the Electrochemiluminescence Immunoassay by [employer]. Results obtained with different methods or kits cannot be used interchangeably. The reference interval is based on the 95th percentile of 240 apparently healthy premenopausal and postmenopausal women. At a cutoff value of 65 U/mL, the test sensitivity to distinguish ovarian carcinoma (FIGO stage I to IV) versus benign gynecological disease is 79%, with a specificity of 82%. Reference: Cancer Antigen 125 (CA 125 II) [package insert V 1.0 Setswana]. [employer], [place], [place] (December 2014) Cancer Ag 125 Qnon Interpretation and review of laboratory results Normal [facility] Comprehensive metabolic 2000 panelon 08-21-2023 Albumin [Mass/Vol] 3.6 g/dL Low 3.9 - 4.9 g/dL [facility] ALP [Catalytic activity/Vol] 105 U/L 34 - 123 U/L [facility] ALT [Catalytic activity/Vol] 20 U/L 7 - 38 U/L [facility] Anion gap [Moles/Vol] 9 mmol/L 8 - 15 mmol/L [facility] AST [Catalytic activity/Vol] 30 U/L 13 - 35 U/L [facility] Bilirubin [Mass/Vol] 0.7 mg/dL 0.2 - 1 .3 mg/dL [facility] Calcium [Mass/Vol] 9.1 mg/dL 8.5 - 10. 2 mg/dL [facility] Chloride [Moles/Vol] 107 mmol/L 98 - 10 7 mmol/L [facility] CO2 [Moles/Vol] 25 mmol/L 22 - 30 mmol/L [facility] Creatinine [Mass/Vol] 0.82 mg/dL 0.58 - 0.96 mg/dL [facility] GFR/1.73 sq M.predicted among non-blacks MDRD (S/P/Bld) [Vol rate/Area] 71 mL/min/{1.73_m2} - PINF [facility] Comment on above: Estimated Glomerular Filtration Rate (eGFR) is calculated using the 2020 CKD-EPI creatinine equation. This equation utilizes serum creatinine, sex, and age as parameters. The creatinine assay has traceable calibration to isotope dilution-mass spectrometry. Refer to KDIGO guidelines for clinical interpretation. In patients with unstable renal function, e.g. those with acute kidney injury, the eGFR may not accurately reflect actual GFR. Glucose [Mass/Vol] 147 mg/dL High 74 - 99 mg/dL [facility] Comment on above: The [place] [employer] (ADA) provides guidance for cutoff values for fasting glucose and random glucose. The ADA defines fasting as no caloric intake for at least 8 hours. Fasting plasma glucose results between 100 to 125 mg/dL indicate increased risk for diabetes (prediabetes). Fasting plasma glucose results greater than or equal to 126 mg/dL meet the criteria for diagnosis of diabetes. In the absence of unequivocal hyperglycemia, results should be confirmed by repeat testing. In a patient with classic symptoms of hyperglycemia or hyperglycemic crisis, random plasma glucose results greater than or equal to 200 mg/dL meet the criteria for diagnosis of diabetes. Reference: Standards of Medical Care in Diabetes 2016, [place] [employer]. Diabetes Care. 2016.39(Suppl 1). Interpretation and review of laboratory results Abnormal [facility] Potassium [Moles/Vol] 4.1 mmol/L 3.7 - 5.1 mmol/L [facility] Protein [Mass/Vol] 6.3 g/dL 6.3 - 8.0 g/dL [facility] Sodium [Moles/Vol] 141 mmol/L 136 - 144 mmol/L [facility] Urea nitrogen [Mass/Vol] 15 mg/dL 7 - 21 mg/dL [facility] PT panel Coag (PPP)Ordered B y: Martha Valentin on 08-21-2023 INR Coag (PPP) [Relative time] 3.1 {INR} High 0.9 - 1.3 [facility] Comment on above: Vitamin K Antagonist (VKA) Therapeutic Range: INR 2 to 3 (Target INR of 2.5) Note: For patients treated with VKA drugs, such as warfarin, the [place] [employer] 2012 Guideline recommends a therapeutic INR range of 2 to 3 (target INR of 2.5). This recommendation includes high-risk patients with antiphospholipid syndrome with previous arterial or venous thromboembolism, current-generation mechanical or bioprosthetic aortic heart valve replacement. Note: Patients with mechanical aortic valve replacement and additional risk factors for thromboembolic events (atrial fibrillation, previous thromboembolism, LV dysfunction, hypercoagulable conditions) or an older generation mechanical AVR (i.e., ball in-Cage) or any mechanical MVR should have a INR therapeutic range of 2.5 to 3.5 (target INR of 3). Colin GH, et al. Chest 2012, 141:7S-47S Sagar PRINCE, et al. [facility] 2017, 70: [id number] Interpretation and review of laboratory results Abnormal [facility] PT Coag (PPP) [Time] 29.4 s High NINF [facility] INR (POC)on 08-16-2023 INR Coag (PPP) [Relative time] 2.6 {INR} High 0.8 - 1.2 [facility] Internal Quality Check Acceptable [facility] Interpretation and review of laboratory results Abnormal [facility] Location:[facility], [address] [place] [address], [place], [place], [id number] [place] [address] POINT OF CARE [facility] Comprehensive metabolic 2000 panelon 07-24-2023 Albumin [Mass/Vol] 3.5 g/dL Low 3.9 - 4.9 g/dL [facility] ALP [Catalytic activity/Vol] 99 U/L 34 - 123 U/L [facility] ALT [Catalytic activity/Vol] 13 U/L 7 - 38 U/L [facility] Anion gap [Moles/Vol] 10 mmol/L 9 - 18 mmol/L [facility] AST [Catalytic activity/Vol] 22 U/L 13 - 35 U/L [facility] Bilirubin [Mass/Vol] 0.7 mg/dL 0.2 - 1 .3 mg/dL [facility] Calcium [Mass/Vol] 8.8 mg/dL 8.5 - 10. 2 mg/dL [facility] Chloride [Moles/Vol] 108 mmol/L High 97 - 10 5 mmol/L [facility] CO2 [Moles/Vol] 26 mmol/L 22 - 30 mmol/L [facility] Creatinine [Mass/Vol] 0.84 mg/dL 0.58 - 0.96 mg/dL [facility] GFR/1.73 sq M.predicted among non-blacks MDRD (S/P/Bld) [Vol rate/Area] 69 mL/min/{1.73_m2} - PINF [facility] Comment on above: Estimated Glomerular Filtration Rate (eGFR) is calculated using the 2020 CKD-EPI creatinine equation. This equation utilizes serum creatinine, sex, and age as parameters. The creatinine assay has traceable calibration to isotope dilution-mass spectrometry. Refer to KDIGO guidelines for clinical interpretation. In patients with unstable renal function, e.g. those with acute kidney injury, the eGFR may not accurately reflect actual GFR. Glucose [Mass/Vol] 116 mg/dL High 74 - 99 mg/dL [facility] Comment on above: The [place] [employer] (ADA) provides guidance for cutoff values for fasting glucose and random glucose. The ADA defines fasting as no caloric intake for at least 8 hours. Fasting plasma glucose results between 100 to 125 mg/dL indicate increased risk for diabetes (prediabetes). Fasting plasma glucose results greater than or equal to 126 mg/dL meet the criteria for diagnosis of diabetes. In the absence of unequivocal hyperglycemia, results should be confirmed by repeat testing. In a patient with classic symptoms of hyperglycemia or hyperglycemic crisis, random plasma glucose results greater than or equal to 200 mg/dL meet the criteria for diagnosis of diabetes. Reference: Standards of Medical Care in Diabetes 2016, [place] [employer]. Diabetes Care. 2016.39(Suppl 1). Interpretation and review of laboratory results Abnormal [facility] Potassium [Moles/Vol] 4.2 mmol/L 3.7 - 5.1 mmol/L [facility] Protein [Mass/Vol] 6.3 g/dL 6.3 - 8.0 g/dL [facility] Sodium [Moles/Vol] 144 mmol/L 136 - 144 mmol/L [facility] Urea nitrogen [Mass/Vol] 21 mg/dL 7 - 21 mg/dL [facility] PT panel Coag (PPP)Ordered B y: Martha Valentin on 07-24-2023 INR Coag (PPP) [Relative time] 1.3 {INR} 0.9 - 1.3 [facility] Comment on above: Vitamin K Antagonist (VKA) Therapeutic Range: INR 2 to 3 (Target INR of 2.5) Note: For patients treated with VKA drugs, such as warfarin, the [place] [employer] 2012 Guideline recommends a therapeutic INR range of 2 to 3 (target INR of 2.5). This recommendation includes high-risk patients with antiphospholipid syndrome with previous arterial or venous thromboembolism, current-generation mechanical or bioprosthetic aortic heart valve replacement. Note: Patients with mechanical aortic valve replacement and additional risk factors for thromboembolic events (atrial fibrillation, previous thromboembolism, LV dysfunction, hypercoagulable conditions) or an older generation mechanical AVR (i.e., ball in-Cage) or any mechanical MVR should have a INR therapeutic range of 2.5 to 3.5 (target INR of 3). Colin BARNEY et al. Chest 2012, 141:7S-47S Sagar PRINCE et al. [facility] 2017, 70: [id number] Interpretation and review of laboratory results Abnormal [facility] PT Coag (PPP) [Time] 13.2 s High [facility] [place] PT panel Coag (PPP)Ordered B y: Emily Castillo on 06-19-2023 INR Coag (PPP) [Relative time] 1.9 {INR} High 0.9 - 1.3 [facility] Comment on above: Vitamin K Antagonist (VKA) Therapeutic Range: INR 2 to 3 (Target INR of 2.5) Note: For patients treated with VKA drugs, such as warfarin, the [place] [employer] 2012 Guideline recommends a therapeutic INR range of 2 to 3 (target INR of 2.5). This recommendation includes high-risk patients with antiphospholipid syndrome with previous arterial or venous thromboembolism, current-generation mechanical or bioprosthetic aortic heart valve replacement. Note: Patients with mechanical aortic valve replacement and additional risk factors for thromboembolic events (atrial fibrillation, previous thromboembolism, LV dysfunction, hypercoagulable conditions) or an older generation mechanical AVR (i.e., ball in-Cage) or any mechanical MVR should have a INR therapeutic range of 2.5 to 3.5 (target INR of 3). Colin BARNEY et al. Chest 2012, 141:7S-47S Sagar PRINCE et al. [facility] 2017, 70: 252-289 Interpretation and review of laboratory results Abnormal [facility] PT Coag (PPP) [Time] 18.4 s High [facility] [place] 125 BLDon 05-16-2023 Cancer Ag 125 Qn 21 [arb'U]/mL <39 U/mL [facility] Comprehensive metabolic 2000 panelon 05-16-2023 Albumin [Mass/Vol] 3.6 g/dL Low 3.9 - 4.9 g/dL [facility] ALP [Catalytic activity/Vol] 104 U/L 34 - 123 U/L [facility] ALT [Catalytic activity/Vol] 23 U/L 7 - 38 U/L [facility] Anion gap [Moles/Vol] 8 mmol/L Low 9 - 18 mmol/L [facility] AST [Catalytic activity/Vol] 29 U/L 13 - 35 U/L [facility] Bilirubin [Mass/Vol] 1.0 mg/dL 0.2 - 1 .3 mg/dL [facility] Calcium [Mass/Vol] 9.1 mg/dL 8.5 - 10. 2 mg/dL [facility] Chloride [Moles/Vol] 106 mmol/L High 97 - 10 5 mmol/L [facility] CO2 [Moles/Vol] 25 mmol/L 22 - 30 mmol/L [facility] Creatinine [Mass/Vol] 0.95 mg/dL 0.58 - 0.96 mg/dL [facility] Estimated Glomerular Filtration Rate 60 mL/min/1.73m >=60 mL/min/1.73 m [facility] Glucose [Mass/Vol] 202 mg/dL High 74 - 99 mg/dL [facility] Potassium [Moles/Vol] 4.0 mmol/L 3.7 - 5.1 mmol/L [facility] Protein [Mass/Vol] 6.4 g/dL 6.3 - 8.0 g/dL [facility] Sodium [Moles/Vol] 139 mmol/L 136 - 144 mmol/L [facility] Urea nitrogen [Mass/Vol] 25 mg/dL High 7 - 21 mg/dL [facility] PT panel Coag (PPP)on 2023 INR Coag (PPP) [Relative time] 2.2 {INR} High 0.9 - 1.3 [facility] Comment on above: Vitamin K Antagonist (VKA) Therapeutic Range: INR 2 to 3 (Target INR of 2.5) Note: For patients treated with VKA drugs, such as warfarin, the [place] [employer] 2012 Guideline recommends a therapeutic INR range of 2 to 3 (target INR of 2.5). This recommendation includes high-risk patients with antiphospholipid syndrome with previous arterial or venous thromboembolism, current-generation mechanical or bioprosthetic aortic heart valve replacement. Note: Patients with mechanical aortic valve replacement and additional risk factors for thromboembolic events (atrial fibrillation, previous thromboembolism, LV dysfunction, hypercoagulable conditions) or an older generation mechanical AVR (i.e., ball in-Cage) or any mechanical MVR should have a INR therapeutic range of 2.5 to 3.5 (target INR of 3). Colin GH, et al. Chest 2012, 141:7S-47S Sagar PRINCE et al. [facility] 2017, 70: 252-289 Interpretation and review of laboratory results Abnormal [facility] PT Coag (PPP) [Time] 21.7 s High NINF [facility] Comprehensive metabolic 2000 panelon 04-18-2023 Albumin [Mass/Vol] 3.8 g/dL Low 3.9 - 4.9 g/dL [facility] ALP [Catalytic activity/Vol] 118 U/L 34 - 123 U/L [facility] ALT [Catalytic activity/Vol] 20 U/L 7 - 38 U/L [facility] Anion gap [Moles/Vol] 7 mmol/L Low 9 - 18 mmol/L [facility] AST [Catalytic activity/Vol] 34 U/L 13 - 35 U/L [facility] Bilirubin [Mass/Vol] 0.7 mg/dL 0.2 - 1 .3 mg/dL [facility] Calcium [Mass/Vol] 9.2 mg/dL 8.5 - 10. 2 mg/dL [facility] Chloride [Moles/Vol] 107 mmol/L High 97 - 10 5 mmol/L [facility] CO2 [Moles/Vol] 27 mmol/L 22 - 30 mmol/L [facility] Creatinine [Mass/Vol] 1.02 mg/dL High 0.58 - 0.96 mg/dL [facility] Estimated Glomerular Filtration Rate 55 mL/min/1.73m Low >=60 mL/min/1.73 m [facility] Glucose [Mass/Vol] 137 mg/dL High 74 - 99 mg/dL [facility] Potassium [Moles/Vol] 3.9 mmol/L 3.7 - 5.1 mmol/L [facility] Protein [Mass/Vol] 6.4 g/dL 6.3 - 8.0 g/dL [facility] Sodium [Moles/Vol] 141 mmol/L 136 - 144 mmol/L [facility] Urea nitrogen [Mass/Vol] 24 mg/dL High 7 - 21 mg/dL [facility] PT panel Coag (PPP)Ordered B y: Patsy Talavera on 04-18-2023 INR Coag (PPP) [Relative time] 3.3 {INR} High 0.9 - 1.3 [facility] Comment on above: Vitamin K Antagonist (VKA) Therapeutic Range: INR 2 to 3 (Target INR of 2.5) Note: For patients treated with VKA drugs, such as warfarin, the [place] [employer] 2012 Guideline recommends a therapeutic INR range of 2 to 3 (target INR of 2.5). This recommendation includes high-risk patients with antiphospholipid syndrome with previous arterial or venous thromboembolism, current-generation mechanical or bioprosthetic aortic heart valve replacement. Note: Patients with mechanical aortic valve replacement and additional risk factors for thromboembolic events (atrial fibrillation, previous thromboembolism, LV dysfunction, hypercoagulable conditions) or an older generation mechanical AVR (i.e., ball in-Cage) or any mechanical MVR should have a INR therapeutic range of 2.5 to 3.5 (target INR of 3). Colin BARNEY, et al. Chest 2012, 141:7S-47S Sagar RA, et al. [facility] 2017, 70: 252-289 Interpretation and review of laboratory results Abnormal [facility] PT Coag (PPP) [Time] 30.8 s High NINF [facility] PT panel Coag (PPP)Ordered B y: Martha Homero on 03-21-2023 INR Coag (PPP) [Relative time] 3.0 {INR} High 0.9 - 1.3 [facility] Comment on above: Vitamin K Antagonist (VKA) Therapeutic Range: INR 2 to 3 (Target INR of 2.5) Note: For patients treated with VKA drugs, such as warfarin, the [place] [employer] 2012 Guideline recommends a therapeutic INR range of 2 to 3 (target INR of 2.5). This recommendation includes high-risk patients with antiphospholipid syndrome with previous arterial or venous thromboembolism, current-generation mechanical or bioprosthetic aortic heart valve replacement. Note: Patients with mechanical aortic valve replacement and additional risk factors for thromboembolic events (atrial fibrillation, previous thromboembolism, LV dysfunction, hypercoagulable conditions) or an older generation mechanical AVR (i.e., ball in-Cage) or any mechanical MVR should have a INR therapeutic range of 2.5 to 3.5 (target INR of 3). Colin BARNEY, et al. Chest 2012, 141:7S-47S Sagar PRINCE, et al. [facility] 2017, 70: 252-289 Interpretation and review of laboratory results Abnormal [facility] PT Coag (PPP) [Time] 28.3 s High NINF [facility] CBC W Auto Differential pane l (Bld)on 01-24-2023 Basophils (Bld) [#/Vol] 0.04 10*3/uL <0.11 k/uL [facility] Basophils/100 WBC (Bld) 0.6 % [facility] Differential cell count method Nom (Bld) Auto [facility] Eosinophils (Bld) [#/Vol] 0.28 10*3/uL <0.46 k/uL [facility] Eosinophils/100 WBC (Bld) 4.3 % [facility] Erythrocyte distribution width (RBC) [Ratio] 15.4 % High 11.5 - 15.0 % [facility] Hematocrit (Bld) [Volume fraction] 40.0 % 36.0 - 46.0 % [facility] Hemoglobin (Bld) [Mass/Vol] 12.9 g/dL 11.5 - 15.5 g/dL [facility] Immature granulocytes (Bld) [#/Vol] <0.10 k/uL [facility] Immature granulocytes/100 WBC (Bld) 0.3 % [facility] Lymphocytes (Bld) [#/Vol] 1.69 10*3/uL 1.00 - 4.00 k/uL [facility] Lymphocytes/100 WBC (Bld) 25.9 % [facility] MCH (RBC) [Entitic mass] 30.7 pg 26.0 - 34.0 pg [facility] MCHC (RBC) [Mass/Vol] 32.3 g/dL 30.5 - 36.0 g/dL [facility] MCV (RBC) [Entitic vol] 95.2 fL 80.0 - 100.0 fL [facility] Monocytes (Bld) [#/Vol] 0.52 10*3/uL <0.87 k/uL [facility] Monocytes/100 WBC (Bld) 8.0 % [facility] Neutrophils (Bld) [#/Vol] 3.98 10*3/uL 1.45 - 7.50 k/uL [facility] Neutrophils/100 WBC (Bld) 60.9 % [facility] Nucleated RBC (Bld) [#/Vol] <0.01 k/uL [facility] Nucleated RBC/100 WBC (Bld) [Ratio] 0.0 /100 WBC [facility] Platelet mean volume (Bld) [Entitic vol] 9.6 fL 9.0 - 12.7 fL [facility] Platelets (Bld) [#/Vol] 203 10*3/uL 150 - 400 k/uL [facility] RBC (Bld) [#/Vol] 4.20 10*6/uL 3.90 - 5.2 0 m/uL [facility] WBC (Bld) [#/Vol] 6.53 10*3/uL 3.70 - 11.00 k/uL [facility] Comprehensive metabolic 2000 panelon 01-24-2023 Albumin [Mass/Vol] 3.5 g/dL Low 3.9 - 4.9 g/dL [facility] ALP [Catalytic activity/Vol] 107 U/L 34 - 123 U/L [facility] ALT [Catalytic activity/Vol] 25 U/L 7 - 38 U/L [facility] Anion gap [Moles/Vol] 8 mmol/L Low 9 - 18 mmol/L [facility] AST [Catalytic activity/Vol] 28 U/L 13 - 35 U/L [facility] Bilirubin [Mass/Vol] 1.0 mg/dL 0.2 - 1 .3 mg/dL [facility] Calcium [Mass/Vol] 8.7 mg/dL 8.5 - 10. 2 mg/dL [facility] Chloride [Moles/Vol] 107 mmol/L High 97 - 10 5 mmol/L [facility] CO2 [Moles/Vol] 25 mmol/L 22 - 30 mmol/L [facility] Creatinine [Mass/Vol] 0.86 mg/dL 0.58 - 0.96 mg/dL [facility] Estimated Glomerular Filtration Rate 67 mL/min/1.73m >=60 mL/min/1.73 m [facility] Glucose [Mass/Vol] 141 mg/dL High 74 - 99 mg/dL [facility] Potassium [Moles/Vol] 4.0 mmol/L 3.7 - 5.1 mmol/L [facility] Protein [Mass/Vol] 6.1 g/dL Low 6.3 - 8.0 g/dL [facility] Sodium [Moles/Vol] 140 mmol/L 136 - 144 mmol/L [facility] Urea nitrogen [Mass/Vol] 21 mg/dL 7 - 21 mg/dL [facility] PT panel Coag (PPP)on 2022 INR Coag (PPP) [Relative time] 2.2 {INR} High 0.9 - 1.3 [facility] PT Coag (PPP) [Time] 21.1 s High <13.1 sec [facility] metabolic 1999 panelon 12-27-2022 Albumin [Mass/Vol] 3.5 g/dL Low 3.9 - 4.9 g/dL [facility] ALP [Catalytic activity/Vol] 110 U/L 34 - 123 U/L [facility] ALT [Catalytic activity/Vol] 21 U/L 7 - 38 U/L [facility] Anion gap [Moles/Vol] 8 mmol/L Low 9 - 18 mmol/L [facility] AST [Catalytic activity/Vol] 28 U/L 13 - 35 U/L [facility] Bilirubin [Mass/Vol] 0.7 mg/dL 0.2 - 1 .3 mg/dL [facility] Calcium [Mass/Vol] 8.4 mg/dL Low 8.5 - 10. 2 mg/dL [facility] Chloride [Moles/Vol] 107 mmol/L High 97 - 10 5 mmol/L [facility] CO2 [Moles/Vol] 24 mmol/L 22 - 30 mmol/L [facility] Creatinine [Mass/Vol] 0.84 mg/dL 0.58 - 0.96 mg/dL [facility] Estimated Glomerular Filtration Rate 69 mL/min/1.73m >=60 mL/min/1.73 m [facility] Glucose [Mass/Vol] 144 mg/dL High 74 - 99 mg/dL [facility] Potassium [Moles/Vol] 3.8 mmol/L 3.7 - 5.1 mmol/L [facility] Protein [Mass/Vol] 5.8 g/dL Low 6.3 - 8.0 g/dL [facility] Sodium [Moles/Vol] 139 mmol/L 136 - 144 mmol/L [facility] Urea nitrogen [Mass/Vol] 25 mg/dL High 7 - 21 mg/dL [facility] metabolic 1999 panelon 11-29-2022 Albumin [Mass/Vol] 3.4 g/dL Low 3.9 - 4.9 g/dL [facility] ALP [Catalytic activity/Vol] 105 U/L 34 - 123 U/L [facility] ALT [Catalytic activity/Vol] 19 U/L 7 - 38 U/L [facility] Anion gap [Moles/Vol] 10 mmol/L 9 - 18 mmol/L [facility] AST [Catalytic activity/Vol] 26 U/L 13 - 35 U/L [facility] Bilirubin [Mass/Vol] 0.9 mg/dL 0.2 - 1 .3 mg/dL [facility] Calcium [Mass/Vol] 8.5 mg/dL 8.5 - 10. 2 mg/dL [facility] Chloride [Moles/Vol] 106 mmol/L High 97 - 10 5 mmol/L [facility] CO2 [Moles/Vol] 25 mmol/L 22 - 30 mmol/L [facility] Creatinine [Mass/Vol] 0.88 mg/dL 0.58 - 0.96 mg/dL [facility] Estimated Glomerular Filtration Rate 66 mL/min/1.73m >=60 mL/min/1.73 m [facility] Glucose [Mass/Vol] 141 mg/dL High 74 - 99 mg/dL [facility] Potassium [Moles/Vol] 3.7 mmol/L 3.7 - 5.1 mmol/L [facility] Protein [Mass/Vol] 6.2 g/dL Low 6.3 - 8.0 g/dL [facility] Sodium [Moles/Vol] 141 mmol/L 136 - 144 mmol/L [facility] Urea nitrogen [Mass/Vol] 23 mg/dL High 7 - 21 mg/dL [facility] PT panel Coag (PPP)on 2022 INR Coag (PPP) [Relative time] 1.7 {INR} High 0.9 - 1.3 [facility] PT Coag (PPP) [Time] 17.1 s High <13.1 sec [facility] Comprehensive metabolic 2000 panelon 11-01-2022 Albumin [Mass/Vol] 3.5 g/dL Low 3.9 - 4.9 g/dL [facility] ALP [Catalytic activity/Vol] 107 U/L 34 - 123 U/L [facility] ALT [Catalytic activity/Vol] 18 U/L 7 - 38 U/L [facility] Anion gap [Moles/Vol] 10 mmol/L 9 - 18 mmol/L [facility] AST [Catalytic activity/Vol] 26 U/L 13 - 35 U/L [facility] Bilirubin [Mass/Vol] 1.1 mg/dL 0.2 - 1 .3 mg/dL [facility] Calcium [Mass/Vol] 9.0 mg/dL 8.5 - 10. 2 mg/dL [facility] Chloride [Moles/Vol] 106 mmol/L High 97 - 10 5 mmol/L [facility] CO2 [Moles/Vol] 23 mmol/L 22 - 30 mmol/L [facility] Creatinine [Mass/Vol] 0.93 mg/dL 0.58 - 0.96 mg/dL [facility] Estimated Glomerular Filtration Rate 61 mL/min/1.73m >=60 mL/min/1.73 m [facility] Glucose [Mass/Vol] 177 mg/dL High 74 - 99 mg/dL [facility] Potassium [Moles/Vol] 4.0 mmol/L 3.7 - 5.1 mmol/L [facility] Protein [Mass/Vol] 6.3 g/dL 6.3 - 8.0 g/dL [facility] Sodium [Moles/Vol] 139 mmol/L 136 - 144 mmol/L [facility] Urea nitrogen [Mass/Vol] 25 mg/dL High 7 - 21 mg/dL [facility] Comprehensive metabolic 2000 panelon 08-09-2022 Albumin [Mass/Vol] 3.4 g/dL Low 3.9 - 4.9 g/dL [facility] ALP [Catalytic activity/Vol] 96 U/L 34 - 123 U/L [facility] ALT [Catalytic activity/Vol] 19 U/L 7 - 38 U/L [facility] Anion gap [Moles/Vol] 7 mmol/L Low 9 - 18 mmol/L [facility] AST [Catalytic activity/Vol] 24 U/L 13 - 35 U/L [facility] Bilirubin [Mass/Vol] 0.6 mg/dL 0.2 - 1 .3 mg/dL [facility] Calcium [Mass/Vol] 8.5 mg/dL 8.5 - 10. 2 mg/dL [facility] Chloride [Moles/Vol] 107 mmol/L High 97 - 10 5 mmol/L [facility] CO2 [Moles/Vol] 26 mmol/L 22 - 30 mmol/L [facility] Creatinine [Mass/Vol] 0.91 mg/dL 0.58 - 0.96 mg/dL [facility] Estimated Glomerular Filtration Rate 63 mL/min/1.73m >=60 mL/min/1.73 m [facility] Glucose [Mass/Vol] 135 mg/dL High 74 - 99 mg/dL [facility] Potassium [Moles/Vol] 4.0 mmol/L 3.7 - 5.1 mmol/L [facility] Protein [Mass/Vol] 6.0 g/dL Low 6.3 - 8.0 g/dL [facility] Sodium [Moles/Vol] 140 mmol/L 136 - 144 mmol/L [facility] Urea nitrogen [Mass/Vol] 30 mg/dL High 7 - 21 mg/dL [facility] PT panel Coag (PPP)on 2022 INR Coag (PPP) [Relative time] 2.4 {INR} High 0.9 - 1.3 [facility] PT Coag (PPP) [Time] 22.9 s High <13.1 sec [facility] Comprehensive metabolic 2000 panelon 07-12-2022 Albumin [Mass/Vol] 3.6 g/dL Low 3.9 - 4.9 g/dL [facility] ALP [Catalytic activity/Vol] 110 U/L 34 - 123 U/L [facility] ALT [Catalytic activity/Vol] 29 U/L 7 - 38 U/L [facility] Anion gap [Moles/Vol] 5 mmol/L Low 9 - 18 mmol/L [facility] AST [Catalytic activity/Vol] 32 U/L 13 - 35 U/L [facility] Bilirubin [Mass/Vol] 0.9 mg/dL 0.2 - 1 .3 mg/dL [facility] Calcium [Mass/Vol] 8.2 mg/dL Low 8.5 - 10. 2 mg/dL [facility] Chloride [Moles/Vol] 103 mmol/L 97 - 10 5 mmol/L [facility] CO2 [Moles/Vol] 29 mmol/L 22 - 30 mmol/L [facility] Creatinine [Mass/Vol] 0.85 mg/dL 0.58 - 0.96 mg/dL [facility] Estimated Glomerular Filtration Rate 69 mL/min/1.73m >=60 mL/min/1.73 m [facility] Glucose [Mass/Vol] 178 mg/dL High 74 - 99 mg/dL [facility] Potassium [Moles/Vol] 3.9 mmol/L 3.7 - 5.1 mmol/L [facility] Protein [Mass/Vol] 6.1 g/dL Low 6.3 - 8.0 g/dL [facility] Sodium [Moles/Vol] 137 mmol/L 136 - 144 mmol/L [facility] Urea nitrogen [Mass/Vol] 24 mg/dL High 7 - 21 mg/dL [facility] PT panel Coag (PPP)on 2022 INR Coag (PPP) [Relative time] 2.1 {INR} High 0.9 - 1.3 [facility] PT Coag (PPP) [Time] 20.8 s High <13.1 sec [facility] CBC W Auto Differential pane l (Bld)on 05-17-2022 Basophils (Bld) [#/Vol] 0.04 10*3/uL <0.11 k/uL [facility] Basophils/100 WBC (Bld) 0.8 % [facility] Differential cell count method Nom (Bld) Auto [facility] Eosinophils (Bld) [#/Vol] 0.25 10*3/uL <0.46 k/uL [facility] Eosinophils/100 WBC (Bld) 5.3 % [facility] Erythrocyte distribution width (RBC) [Ratio] 14.7 % 11.5 - 15.0 % [facility] Hematocrit (Bld) [Volume fraction] 40.1 % 36.0 - 46.0 % [facility] Hemoglobin (Bld) [Mass/Vol] 13.2 g/dL 11.5 - 15.5 g/dL [facility] Immature granulocytes (Bld) [#/Vol] <0.10 k/uL [facility] Immature granulocytes/100 WBC (Bld) 0.2 % [facility] Lymphocytes (Bld) [#/Vol] 1.02 10*3/uL 1.00 - 4.00 k/uL [facility] Lymphocytes/100 WBC (Bld) 21.7 % [facility] MCH (RBC) [Entitic mass] 31.8 pg 26.0 - 34.0 pg [facility] MCHC (RBC) [Mass/Vol] 32.9 g/dL 30.5 - 36.0 g/dL [facility] MCV (RBC) [Entitic vol] 96.6 fL 80.0 - 100.0 fL [facility] Monocytes (Bld) [#/Vol] 0.40 10*3/uL <0.87 k/uL [facility] Monocytes/100 WBC (Bld) 8.5 % [facility] Neutrophils (Bld) [#/Vol] 2.99 10*3/uL 1.45 - 7.50 k/uL [facility] Neutrophils/100 WBC (Bld) 63.5 % [facility] Nucleated RBC (Bld) [#/Vol] <0.01 k/uL [facility] Nucleated RBC/100 WBC (Bld) [Ratio] 0.0 /100 WBC [facility] Platelet mean volume (Bld) [Entitic vol] 10.4 fL 9.0 - 12.7 fL [facility] Platelets (Bld) [#/Vol] 225 10*3/uL 150 - 400 k/uL [facility] RBC (Bld) [#/Vol] 4.15 10*6/uL 3.90 - 5.2 0 m/uL [facility] WBC (Bld) [#/Vol] 4.71 10*3/uL 3.70 - 11.00 k/uL [facility] Comprehensive metabolic 2000 panelon 05-17-2022 Albumin [Mass/Vol] 3.5 g/dL Low 3.9 - 4.9 g/dL [facility] ALP [Catalytic activity/Vol] 107 U/L 34 - 123 U/L [facility] ALT [Catalytic activity/Vol] 33 U/L 7 - 38 U/L [facility] Anion gap [Moles/Vol] 8 mmol/L Low 9 - 18 mmol/L [facility] AST [Catalytic activity/Vol] 39 U/L High 13 - 35 U/L [facility] Bilirubin [Mass/Vol] 1.0 mg/dL 0.2 - 1 .3 mg/dL [facility] Calcium [Mass/Vol] 8.7 mg/dL 8.5 - 10. 2 mg/dL [facility] Chloride [Moles/Vol] 105 mmol/L 97 - 10 5 mmol/L [facility] CO2 [Moles/Vol] 26 mmol/L 22 - 30 mmol/L [facility] Creatinine [Mass/Vol] 0.91 mg/dL 0.58 - 0.96 mg/dL [facility] Estimated Glomerular Filtration Rate 63 mL/min/1.73m >=60 mL/min/1.73 m [facility] Glucose [Mass/Vol] 158 mg/dL High 74 - 99 mg/dL [facility] Potassium [Moles/Vol] 4.2 mmol/L 3.7 - 5.1 mmol/L [facility] Protein [Mass/Vol] 6.1 g/dL Low 6.3 - 8.0 g/dL [facility] Sodium [Moles/Vol] 139 mmol/L 136 - 144 mmol/L [facility] Urea nitrogen [Mass/Vol] 25 mg/dL High 7 - 21 mg/dL [facility] MAGNESIUM BLDon 05-17-2022 Magnesium [Mass/Vol] 1.7 mg/dL 1.7 - 2 .3 mg/dL [facility] PT panel Coag (PPP)on 2022 INR Coag (PPP) [Relative time] 1.4 {INR} High 0.9 - 1.3 [facility] PT Coag (PPP) [Time] 13.5 s High <13.1 sec [facility] INR (POC)on 04-24-2022 INR Coag (PPP) [Relative time] 2.8 {INR} High 0.8 - 1.2 [facility] Internal Quality Check Acceptable [facility] CBC W Auto Differential pane l (Bld)on 04-19-2022 Basophils (Bld) [#/Vol] 0.04 10*3/uL <0.11 k/uL [facility] Basophils/100 WBC (Bld) 0.7 % [facility] Differential cell count method Nom (Bld) Auto [facility] Eosinophils (Bld) [#/Vol] 0.23 10*3/uL <0.46 k/uL [facility] Eosinophils/100 WBC (Bld) 4.3 % [facility] Erythrocyte distribution width (RBC) [Ratio] 14.6 % 11.5 - 15.0 % [facility] Hematocrit (Bld) [Volume fraction] 39.2 % 36.0 - 46.0 % [facility] Hemoglobin (Bld) [Mass/Vol] 13.0 g/dL 11.5 - 15.5 g/dL [facility] Immature granulocytes (Bld) [#/Vol] <0.10 k/uL [facility] Immature granulocytes/100 WBC (Bld) 0.4 % [facility] Lymphocytes (Bld) [#/Vol] 1.19 10*3/uL 1.00 - 4.00 k/uL [facility] Lymphocytes/100 WBC (Bld) 22.3 % [facility] MCH (RBC) [Entitic mass] 32.0 pg 26.0 - 34.0 pg [facility] MCHC (RBC) [Mass/Vol] 33.2 g/dL 30.5 - 36.0 g/dL [facility] MCV (RBC) [Entitic vol] 96.6 fL 80.0 - 100.0 fL [facility] Monocytes (Bld) [#/Vol] 0.43 10*3/uL <0.87 k/uL [facility] Monocytes/100 WBC (Bld) 8.1 % [facility] Neutrophils (Bld) [#/Vol] 3.43 10*3/uL 1.45 - 7.50 k/uL [facility] Neutrophils/100 WBC (Bld) 64.2 % [facility] Nucleated RBC (Bld) [#/Vol] <0.01 k/uL [facility] Nucleated RBC/100 WBC (Bld) [Ratio] 0.0 /100 WBC [facility] Platelet mean volume (Bld) [Entitic vol] 9.8 fL 9.0 - 12.7 fL [facility] Platelets (Bld) [#/Vol] 207 10*3/uL 150 - 400 k/uL [facility] RBC (Bld) [#/Vol] 4.06 10*6/uL 3.90 - 5.2 0 m/uL [facility] WBC (Bld) [#/Vol] 5.34 10*3/uL 3.70 - 11.00 k/uL [facility] Comprehensive metabolic 2000 panelon 04-19-2022 Albumin [Mass/Vol] 3.5 g/dL Low 3.9 - 4.9 g/dL [facility] ALP [Catalytic activity/Vol] 107 U/L 34 - 123 U/L [facility] ALT [Catalytic activity/Vol] 38 U/L 7 - 38 U/L [facility] Anion gap [Moles/Vol] 6 mmol/L Low 9 - 18 mmol/L [facility] AST [Catalytic activity/Vol] 39 U/L High 13 - 35 U/L [facility] Bilirubin [Mass/Vol] 1.1 mg/dL 0.2 - 1 .3 mg/dL [facility] Calcium [Mass/Vol] 8.6 mg/dL 8.5 - 10. 2 mg/dL [facility] Chloride [Moles/Vol] 105 mmol/L 97 - 10 5 mmol/L [facility] CO2 [Moles/Vol] 26 mmol/L 22 - 30 mmol/L [facility] Creatinine [Mass/Vol] 0.81 mg/dL 0.58 - 0.96 mg/dL [facility] Estimated Glomerular Filtration Rate 73 mL/min/1.73m >=60 mL/min/1.73 m [facility] Glucose [Mass/Vol] 186 mg/dL High 74 - 99 mg/dL [facility] Potassium [Moles/Vol] 4.3 mmol/L 3.7 - 5.1 mmol/L [facility] Protein [Mass/Vol] 6.1 g/dL Low 6.3 - 8.0 g/dL [facility] Sodium [Moles/Vol] 137 mmol/L 136 - 144 mmol/L [facility] Urea nitrogen [Mass/Vol] 24 mg/dL High 7 - 21 mg/dL [facility] MAGNESIUM BLDon 04-19-2022 Magnesium [Mass/Vol] 1.6 mg/dL Low 1.7 - 2 .3 mg/dL [facility] CBC W Auto Differential pane l (Bld)on 03-22-2022 Basophils (Bld) [#/Vol] 0.03 10*3/uL <0.11 k/uL [facility] Basophils/100 WBC (Bld) 0.5 % [facility] Differential cell count method Nom (Bld) Auto [facility] Eosinophils (Bld) [#/Vol] 0.26 10*3/uL <0.46 k/uL [facility] Eosinophils/100 WBC (Bld) 4.6 % [facility] Erythrocyte distribution width (RBC) [Ratio] 14.8 % 11.5 - 15.0 % [facility] Hematocrit (Bld) [Volume fraction] 38.4 % 36.0 - 46.0 % [facility] Hemoglobin (Bld) [Mass/Vol] 12.7 g/dL 11.5 - 15.5 g/dL [facility] Immature granulocytes (Bld) [#/Vol] <0.10 k/uL [facility] Immature granulocytes/100 WBC (Bld) 0.2 % [facility] Lymphocytes (Bld) [#/Vol] 1.26 10*3/uL 1.00 - 4.00 k/uL [facility] Lymphocytes/100 WBC (Bld) 22.4 % [facility] MCH (RBC) [Entitic mass] 32.1 pg 26.0 - 34.0 pg [facility] MCHC (RBC) [Mass/Vol] 33.1 g/dL 30.5 - 36.0 g/dL [facility] MCV (RBC) [Entitic vol] 97.0 fL 80.0 - 100.0 fL [facility] Monocytes (Bld) [#/Vol] 0.45 10*3/uL <0.87 k/uL [facility] Monocytes/100 WBC (Bld) 8.0 % [facility] Neutrophils (Bld) [#/Vol] 3.61 10*3/uL 1.45 - 7.50 k/uL [facility] Neutrophils/100 WBC (Bld) 64.3 % [facility] Nucleated RBC (Bld) [#/Vol] <0.01 k/uL [facility] Nucleated RBC/100 WBC (Bld) [Ratio] 0.0 /100 WBC [facility] Platelet mean volume (Bld) [Entitic vol] 9.7 fL 9.0 - 12.7 fL [facility] Platelets (Bld) [#/Vol] 213 10*3/uL 150 - 400 k/uL [facility] RBC (Bld) [#/Vol] 3.96 10*6/uL 3.90 - 5.2 0 m/uL [facility] WBC (Bld) [#/Vol] 5.62 10*3/uL 3.70 - 11.00 k/uL [facility] Comprehensive metabolic 2000 panelon 03-22-2022 Albumin [Mass/Vol] 3.6 g/dL Low 3.9 - 4.9 g/dL [facility] ALP [Catalytic activity/Vol] 110 U/L 34 - 123 U/L [facility] ALT [Catalytic activity/Vol] 27 U/L 7 - 38 U/L [facility] Anion gap [Moles/Vol] 6 mmol/L Low 9 - 18 mmol/L [facility] AST [Catalytic activity/Vol] 34 U/L 13 - 35 U/L [facility] Bilirubin [Mass/Vol] 0.9 mg/dL 0.2 - 1 .3 mg/dL [facility] Calcium [Mass/Vol] 8.9 mg/dL 8.5 - 10. 2 mg/dL [facility] Chloride [Moles/Vol] 104 mmol/L 97 - 10 5 mmol/L [facility] CO2 [Moles/Vol] 26 mmol/L 22 - 30 mmol/L [facility] Creatinine [Mass/Vol] 0.84 mg/dL 0.58 - 0.96 mg/dL [facility] Estimated Glomerular Filtration Rate 69 mL/min/1.73m >=60 mL/min/1.73 m [facility] Glucose [Mass/Vol] 204 mg/dL High 74 - 99 mg/dL [facility] Potassium [Moles/Vol] 4.2 mmol/L 3.7 - 5.1 mmol/L [facility] Protein [Mass/Vol] 5.9 g/dL Low 6.3 - 8.0 g/dL [facility] Sodium [Moles/Vol] 136 mmol/L 136 - 144 mmol/L [facility] Urea nitrogen [Mass/Vol] 28 mg/dL High 7 - 21 mg/dL [facility] CBC W Auto Differential pane l (Bld)on 12-27-2021 Basophils (Bld) [#/Vol] 0.04 10*3/uL <0.11 k/uL [facility] Basophils/100 WBC (Bld) 0.7 % [facility] Differential cell count method Nom (Bld) Auto [facility] Eosinophils (Bld) [#/Vol] 0.24 10*3/uL <0.46 k/uL [facility] Eosinophils/100 WBC (Bld) 4.1 % [facility] Erythrocyte distribution width (RBC) [Ratio] 14.6 % 11.5 - 15.0 % [facility] Hematocrit (Bld) [Volume fraction] 42.0 % 36.0 - 46.0 % [facility] Hemoglobin (Bld) [Mass/Vol] 14.0 g/dL 11.5 - 15.5 g/dL [facility] Immature granulocytes (Bld) [#/Vol] <0.10 k/uL [facility] Immature granulocytes/100 WBC (Bld) 0.3 % [facility] Lymphocytes (Bld) [#/Vol] 1.37 10*3/uL 1.00 - 4.00 k/uL [facility] Lymphocytes/100 WBC (Bld) 23.3 % [facility] MCH (RBC) [Entitic mass] 32.6 pg 26.0 - 34.0 pg [facility] MCHC (RBC) [Mass/Vol] 33.3 g/dL 30.5 - 36.0 g/dL [facility] MCV (RBC) [Entitic vol] 97.7 fL 80.0 - 100.0 fL [facility] Monocytes (Bld) [#/Vol] 0.46 10*3/uL <0.87 k/uL [facility] Monocytes/100 WBC (Bld) 7.8 % [facility] Neutrophils (Bld) [#/Vol] 3.75 10*3/uL 1.45 - 7.50 k/uL [facility] Neutrophils/100 WBC (Bld) 63.8 % [facility] Nucleated RBC (Bld) [#/Vol] <0.01 k/uL [facility] Nucleated RBC/100 WBC (Bld) [Ratio] 0.0 /100 WBC [facility] Platelet mean volume (Bld) [Entitic vol] 9.9 fL 9.0 - 12.7 fL [facility] Platelets (Bld) [#/Vol] 232 10*3/uL 150 - 400 k/uL [facility] RBC (Bld) [#/Vol] 4.30 10*6/uL 3.90 - 5.2 0 m/uL [facility] WBC (Bld) [#/Vol] 5.88 10*3/uL 3.70 - 11.00 k/uL [facility] Comprehensive metabolic 2000 panelon 12-27-2021 Albumin [Mass/Vol] 3.9 g/dL 3.9 - 4.9 g/dL [facility] ALP [Catalytic activity/Vol] 119 U/L 34 - 123 U/L [facility] ALT [Catalytic activity/Vol] 41 U/L High 7 - 38 U/L [facility] Anion gap [Moles/Vol] 10 mmol/L 9 - 18 mmol/L [facility] AST [Catalytic activity/Vol] 48 U/L High 13 - 35 U/L [facility] Bilirubin [Mass/Vol] 0.9 mg/dL 0.2 - 1 .3 mg/dL [facility] Calcium [Mass/Vol] 9.2 mg/dL 8.5 - 10. 2 mg/dL [facility] Chloride [Moles/Vol] 105 mmol/L 97 - 10 5 mmol/L [facility] CO2 [Moles/Vol] 25 mmol/L 22 - 30 mmol/L [facility] Creatinine [Mass/Vol] 0.80 mg/dL 0.58 - 0.96 mg/dL [facility] Estimated Glomerular Filtration Rate 74 mL/min/1.73m >=60 mL/min/1.73 m [facility] Glucose [Mass/Vol] 136 mg/dL High 74 - 99 mg/dL [facility] Potassium [Moles/Vol] 4.2 mmol/L 3.7 - 5.1 mmol/L [facility] Protein [Mass/Vol] 6.6 g/dL 6.3 - 8.0 g/dL [facility] Sodium [Moles/Vol] 140 mmol/L 136 - 144 mmol/L [facility] Urea nitrogen [Mass/Vol] 24 mg/dL High 7 - 21 mg/dL [facility] CBC W Auto Differential pane l (Bld)on 12-21-2021 Abs Immature Gran <0.10 k/uL [facility] Basophils (Bld) [#/Vol] 0.03 10*3/uL <0.11 k/uL [facility] Basophils/100 WBC (Bld) 0.6 % [facility] Differential cell count method Nom (Bld) Auto [facility] Eosinophils (Bld) [#/Vol] 0.26 10*3/uL <0.46 k/uL [facility] Eosinophils/100 WBC (Bld) 4.9 % [facility] Erythrocyte distribution width (RBC) [Ratio] 14.7 % 11.5 - 15.0 % [facility] Hematocrit (Bld) [Volume fraction] 39.7 % 36.0 - 46.0 % [facility] Hemoglobin (Bld) [Mass/Vol] 13.0 g/dL 11.5 - 15.5 g/dL [facility] Immature Gran % 0.2 % [facility] Lymphocytes (Bld) [#/Vol] 1.42 10*3/uL 1.00 - 4.00 k/uL [facility] Lymphocytes/100 WBC (Bld) 27.0 % [facility] MCH (RBC) [Entitic mass] 32.5 pg 26.0 - 34.0 pg [facility] MCHC (RBC) [Mass/Vol] 32.7 g/dL 30.5 - 36.0 g/dL [facility] MCV (RBC) [Entitic vol] 99.3 fL 80.0 - 100.0 fL [facility] Monocytes (Bld) [#/Vol] 0.35 10*3/uL <0.87 k/uL [facility] Monocytes/100 WBC (Bld) 6.7 % [facility] Neutrophils (Bld) [#/Vol] 3.19 10*3/uL 1.45 - 7.50 k/uL [facility] Neutrophils/100 WBC (Bld) 60.6 % [facility] Nucleated RBC (Bld) [#/Vol] <0.01 k/uL [facility] Nucleated RBC/100 WBC (Bld) [Ratio] 0.0 /100 WBC [facility] Platelet mean volume (Bld) [Entitic vol] 10.6 fL 9.0 - 12.7 fL [facility] Platelets (Bld) [#/Vol] 211 10*3/uL 150 - 400 k/uL [facility] RBC (Bld) [#/Vol] 4.00 10*6/uL 3.90 - 5.2 0 m/uL [facility] WBC (Bld) [#/Vol] 5.26 10*3/uL 3.70 - 11.00 k/uL [facility] Comprehensive metabolic 2000 panelon 12-21-2021 Albumin [Mass/Vol] 3.4 g/dL Low 3.9 - 4.9 g/dL [facility] ALP [Catalytic activity/Vol] 99 U/L 34 - 123 U/L [facility] ALT [Catalytic activity/Vol] 33 U/L 7 - 38 U/L [facility] Anion gap [Moles/Vol] 8 mmol/L Low 9 - 18 mmol/L [facility] AST [Catalytic activity/Vol] 37 U/L High 13 - 35 U/L [facility] Bilirubin [Mass/Vol] 0.7 mg/dL 0.2 - 1 .3 mg/dL [facility] Calcium [Mass/Vol] 8.6 mg/dL 8.5 - 10. 2 mg/dL [facility] Chloride [Moles/Vol] 107 mmol/L High 97 - 10 5 mmol/L [facility] CO2 [Moles/Vol] 25 mmol/L 22 - 30 mmol/L [facility] Creatinine [Mass/Vol] 0.86 mg/dL 0.58 - 0.96 mg/dL [facility] Estimated Glomerular Filtration Rate 68 mL/min/1.73m >=60 mL/min/1.73 m [facility] Glucose [Mass/Vol] 189 mg/dL High 74 - 99 mg/dL [facility] Potassium [Moles/Vol] 3.9 mmol/L 3.7 - 5.1 mmol/L [facility] Protein [Mass/Vol] 5.6 g/dL Low 6.3 - 8.0 g/dL [facility] Sodium [Moles/Vol] 140 mmol/L 136 - 144 mmol/L [facility] Urea nitrogen [Mass/Vol] 26 mg/dL High 7 - 21 mg/dL [facility] MAGNESIUM BLDon 12-21-2021 Magnesium [Mass/Vol] 1.6 mg/dL Low 1.7 - 2 .3 mg/dL [facility] CBC W Auto Differential pane l (Bld)on 11-23-2021 Abs Immature Gran <0.10 k/uL [facility] Basophils (Bld) [#/Vol] 0.03 10*3/uL <0.11 k/uL [facility] Basophils/100 WBC (Bld) 0.6 % [facility] Differential cell count method Nom (Bld) Auto [facility] Eosinophils (Bld) [#/Vol] 0.24 10*3/uL <0.46 k/uL [facility] Eosinophils/100 WBC (Bld) 5.1 % [facility] Erythrocyte distribution width (RBC) [Ratio] 15.2 % High 11.5 - 15.0 % [facility] Hematocrit (Bld) [Volume fraction] 40.4 % 36.0 - 46.0 % [facility] Hemoglobin (Bld) [Mass/Vol] 13.1 g/dL 11.5 - 15.5 g/dL [facility] Immature Gran % 0.4 % [facility] Lymphocytes (Bld) [#/Vol] 1.28 10*3/uL 1.00 - 4.00 k/uL [facility] Lymphocytes/100 WBC (Bld) 27.4 % [facility] MCH (RBC) [Entitic mass] 32.8 pg 26.0 - 34.0 pg [facility] MCHC (RBC) [Mass/Vol] 32.4 g/dL 30.5 - 36.0 g/dL [facility] MCV (RBC) [Entitic vol] 101.0 fL High 80.0 - 100.0 fL [facility] Monocytes (Bld) [#/Vol] 0.38 10*3/uL <0.87 k/uL [facility] Monocytes/100 WBC (Bld) 8.1 % [facility] Neutrophils (Bld) [#/Vol] 2.73 10*3/uL 1.45 - 7.50 k/uL [facility] Neutrophils/100 WBC (Bld) 58.4 % [facility] Nucleated RBC (Bld) [#/Vol] <0.01 k/uL [facility] Nucleated RBC/100 WBC (Bld) [Ratio] 0.0 /100 WBC [facility] Platelet mean volume (Bld) [Entitic vol] 10.4 fL 9.0 - 12.7 fL [facility] Platelets (Bld) [#/Vol] 185 10*3/uL 150 - 400 k/uL [facility] RBC (Bld) [#/Vol] 4.00 10*6/uL 3.90 - 5.2 0 m/uL [facility] WBC (Bld) [#/Vol] 4.68 10*3/uL 3.70 - 11.00 k/uL [facility] Comprehensive metabolic 2000 panelon 11-23-2021 Albumin [Mass/Vol] 3.4 g/dL Low 3.9 - 4.9 g/dL [facility] ALP [Catalytic activity/Vol] 97 U/L 34 - 123 U/L [facility] ALT [Catalytic activity/Vol] 41 U/L High 7 - 38 U/L [facility] Anion gap [Moles/Vol] 10 mmol/L 9 - 18 mmol/L [facility] AST [Catalytic activity/Vol] 61 U/L High 13 - 35 U/L [facility] Bilirubin [Mass/Vol] 0.7 mg/dL 0.2 - 1 .3 mg/dL [facility] Calcium [Mass/Vol] 8.7 mg/dL 8.5 - 10. 2 mg/dL [facility] Chloride [Moles/Vol] 108 mmol/L High 97 - 10 5 mmol/L [facility] CO2 [Moles/Vol] 22 mmol/L 22 - 30 mmol/L [facility] Creatinine [Mass/Vol] 1.09 mg/dL High 0.58 - 0.96 mg/dL [facility] Estimated Glomerular Filtration Rate 51 mL/min/1.73m Low >=60 mL/min/1.73 m [facility] Glucose [Mass/Vol] 138 mg/dL High 74 - 99 mg/dL [facility] Potassium [Moles/Vol] 4.1 mmol/L 3.7 - 5.1 mmol/L [facility] Protein [Mass/Vol] 6.1 g/dL Low 6.3 - 8.0 g/dL [facility] Sodium [Moles/Vol] 140 mmol/L 136 - 144 mmol/L [facility] Urea nitrogen [Mass/Vol] 35 mg/dL High 7 - 21 mg/dL [facility] MAGNESIUM BLDon 11-23-2021 Magnesium [Mass/Vol] 1.7 mg/dL 1.7 - 2 .3 mg/dL [facility] CBC W Auto Differential pane l (Bld)on 10-25-2021 Abs Immature Gran <0.10 k/uL [facility] Basophils (Bld) [#/Vol] 0.03 10*3/uL <0.11 k/uL [facility] Basophils/100 WBC (Bld) 0.5 % [facility] Differential cell count method Nom (Bld) Auto [facility] Eosinophils (Bld) [#/Vol] 0.26 10*3/uL <0.46 k/uL [facility] Eosinophils/100 WBC (Bld) 4.1 % [facility] Erythrocyte distribution width (RBC) [Ratio] 17.1 % High 11.5 - 15.0 % [facility] Hematocrit (Bld) [Volume fraction] 38.4 % 36.0 - 46.0 % [facility] Hemoglobin (Bld) [Mass/Vol] 12.5 g/dL 11.5 - 15.5 g/dL [facility] Immature Gran % 0.3 % [facility] Lymphocytes (Bld) [#/Vol] 1.12 10*3/uL 1.00 - 4.00 k/uL [facility] Lymphocytes/100 WBC (Bld) 17.7 % [facility] MCH (RBC) [Entitic mass] 33.0 pg 26.0 - 34.0 pg [facility] MCHC (RBC) [Mass/Vol] 32.6 g/dL 30.5 - 36.0 g/dL [facility] MCV (RBC) [Entitic vol] 101.3 fL High 80.0 - 100.0 fL [facility] Monocytes (Bld) [#/Vol] 0.49 10*3/uL <0.87 k/uL [facility] Monocytes/100 WBC (Bld) 7.8 % [facility] Neutrophils (Bld) [#/Vol] 4.39 10*3/uL 1.45 - 7.50 k/uL [facility] Neutrophils/100 WBC (Bld) 69.6 % [facility] Nucleated RBC (Bld) [#/Vol] <0.01 k/uL [facility] Nucleated RBC/100 WBC (Bld) [Ratio] 0.0 /100 WBC [facility] Platelet mean volume (Bld) [Entitic vol] 9.9 fL 9.0 - 12.7 fL [facility] Platelets (Bld) [#/Vol] 190 10*3/uL 150 - 400 k/uL [facility] RBC (Bld) [#/Vol] 3.79 10*6/uL Low 3.90 - 5.2 0 m/uL [facility] WBC (Bld) [#/Vol] 6.31 10*3/uL 3.70 - 11.00 k/uL [facility] Comprehensive metabolic 2000 panelon 10-25-2021 Albumin [Mass/Vol] 3.4 g/dL Low 3.9 - 4.9 g/dL [facility] ALP [Catalytic activity/Vol] 90 U/L 34 - 123 U/L [facility] ALT [Catalytic activity/Vol] 23 U/L 7 - 38 U/L [facility] Anion gap [Moles/Vol] 9 mmol/L 9 - 18 mmol/L [facility] AST [Catalytic activity/Vol] 28 U/L 13 - 35 U/L [facility] Bilirubin [Mass/Vol] 1.1 mg/dL 0.2 - 1 .3 mg/dL [facility] Calcium [Mass/Vol] 8.5 mg/dL 8.5 - 10. 2 mg/dL [facility] Chloride [Moles/Vol] 105 mmol/L 97 - 10 5 mmol/L [facility] CO2 [Moles/Vol] 25 mmol/L 22 - 30 mmol/L [facility] Creatinine [Mass/Vol] 0.78 mg/dL 0.58 - 0.96 mg/dL [facility] Estimated Glomerular Filtration Rate 76 mL/min/1.73m >=60 mL/min/1.73 m [facility] Glucose [Mass/Vol] 170 mg/dL High 74 - 99 mg/dL [facility] Potassium [Moles/Vol] 4.3 mmol/L 3.7 - 5.1 mmol/L [facility] Protein [Mass/Vol] 5.8 g/dL Low 6.3 - 8.0 g/dL [facility] Sodium [Moles/Vol] 139 mmol/L 136 - 144 mmol/L [facility] Urea nitrogen [Mass/Vol] 24 mg/dL High 7 - 21 mg/dL [facility] No Panel Informationon 09-09 [facility] CBC W Auto Differential pane l (Bld)on 08-22-2021 Abs Immature Gran 0.03 k/uL <0.10 k/uL [facility] Basophils (Bld) [#/Vol] 0.04 10*3/uL <0.11 k/uL [facility] Basophils/100 WBC (Bld) 0.9 % [facility] Differential cell count method Nom (Bld) Auto [facility] Eosinophils (Bld) [#/Vol] 0.13 10*3/uL <0.46 k/uL [facility] Eosinophils/100 WBC (Bld) 2.9 % [facility] Erythrocyte distribution width (RBC) [Ratio] 18.7 % High 11.5 - 15.0 % [facility] Hematocrit (Bld) [Volume fraction] 39.2 % 36.0 - 46.0 % [facility] Hemoglobin (Bld) [Mass/Vol] 13.0 g/dL 11.5 - 15.5 g/dL [facility] Immature Gran % 0.7 % [facility] Lymphocytes (Bld) [#/Vol] 0.90 10*3/uL Low 1.00 - 4.00 k/uL [facility] Lymphocytes/100 WBC (Bld) 20.1 % [facility] MCH (RBC) [Entitic mass] 32.7 pg 26.0 - 34.0 pg [facility] MCHC (RBC) [Mass/Vol] 33.2 g/dL 30.5 - 36.0 g/dL [facility] MCV (RBC) [Entitic vol] 98.5 fL 80.0 - 100.0 fL [facility] Monocytes (Bld) [#/Vol] 0.74 10*3/uL <0.87 k/uL [facility] Monocytes/100 WBC (Bld) 16.6 % [facility] Neutrophils (Bld) [#/Vol] 2.63 10*3/uL 1.45 - 7.50 k/uL [facility] Neutrophils/100 WBC (Bld) 58.8 % [facility] Nucleated RBC (Bld) [#/Vol] 10*3/uL <0.01 k/uL [facility] Nucleated RBC/100 WBC (Bld) [Ratio] 0.0 /100 WBC [facility] Platelet mean volume (Bld) [Entitic vol] 10.1 fL 9.0 - 12.7 fL [facility] Platelets (Bld) [#/Vol] 228 10*3/uL 150 - 400 k/uL [facility] RBC (Bld) [#/Vol] 3.98 10*6/uL 3.90 - 5.2 0 m/uL [facility] WBC (Bld) [#/Vol] 4.47 10*3/uL 3.70 - 11.00 k/uL [facility] PT panel Coag (PPP)on 2021 INR Coag (PPP) [Relative time] 1.6 {INR} High 0.9 - 1.3 [facility] PT Coag (PPP) [Time] 16.3 s High 9.7 - 1 3.0 sec [facility] PT panel Coag (PPP)on 2021 INR Coag (PPP) [Relative time] 2.1 {INR} High 0.9 - 1.3 [facility] PT Coag (PPP) [Time] 21.2 s High 9.7 - 1 3.0 sec [facility] CBC W Auto Differential pane l (Bld)on 07-25-2021 Abs Immature Gran 0.05 k/uL <0.10 k/uL [facility] Basophils (Bld) [#/Vol] 0.05 10*3/uL <0.11 k/uL [facility] Basophils/100 WBC (Bld) 1.0 % [facility] Differential cell count method Nom (Bld) Auto [facility] Eosinophils (Bld) [#/Vol] 0.03 10*3/uL <0.46 k/uL [facility] Eosinophils/100 WBC (Bld) 0.6 % [facility] Erythrocyte distribution width (RBC) [Ratio] 17.1 % High 11.5 - 15.0 % [facility] Hematocrit (Bld) [Volume fraction] 38.7 % 36.0 - 46.0 % [facility] Hemoglobin (Bld) [Mass/Vol] 12.8 g/dL 11.5 - 15.5 g/dL [facility] Immature Gran % 1.0 % [facility] Lymphocytes (Bld) [#/Vol] 1.25 10*3/uL 1.00 - 4.00 k/uL [facility] Lymphocytes/100 WBC (Bld) 26.2 % [facility] MCH (RBC) [Entitic mass] 31.8 pg 26.0 - 34.0 pg [facility] MCHC (RBC) [Mass/Vol] 33.1 g/dL 30.5 - 36.0 g/dL [facility] MCV (RBC) [Entitic vol] 96.0 fL 80.0 - 100.0 fL [facility] Monocytes (Bld) [#/Vol] 0.88 10*3/uL High <0.87 k/uL [facility] Monocytes/100 WBC (Bld) 18.4 % [facility] Neutrophils (Bld) [#/Vol] 2.51 10*3/uL 1.45 - 7.50 k/uL [facility] Neutrophils/100 WBC (Bld) 52.8 % [facility] Nucleated RBC (Bld) [#/Vol] 10*3/uL <0.01 k/uL [facility] Nucleated RBC/100 WBC (Bld) [Ratio] 0.0 /100 WBC [facility] Platelet mean volume (Bld) [Entitic vol] 10.5 fL 9.0 - 12.7 fL [facility] Platelets (Bld) [#/Vol] 236 10*3/uL 150 - 400 k/uL [facility] RBC (Bld) [#/Vol] 4.03 10*6/uL 3.90 - 5.2 0 m/uL [facility] WBC (Bld) [#/Vol] 4.77 10*3/uL 3.70 - 11.00 k/uL [facility] Comprehensive metabolic 2000 panelon 07-25-2021 Albumin [Mass/Vol] 3.5 g/dL Low 3.9 - 4.9 g/dL [facility] ALP [Catalytic activity/Vol] 89 U/L 34 - 123 U/L [facility] ALT [Catalytic activity/Vol] 28 U/L 7 - 38 U/L [facility] Anion gap [Moles/Vol] 12 mmol/L 9 - 18 mmol/L [facility] AST [Catalytic activity/Vol] 35 U/L 13 - 35 U/L [facility] Bilirubin [Mass/Vol] 0.7 mg/dL 0.2 - 1 .3 mg/dL [facility] Calcium [Mass/Vol] 8.6 mg/dL 8.5 - 10. 2 mg/dL [facility] Chloride [Moles/Vol] 106 mmol/L High 97 - 10 5 mmol/L [facility] CO2 [Moles/Vol] 21 mmol/L Low 22 - 30 mmol/L [facility] Creatinine [Mass/Vol] 0.76 mg/dL 0.58 - 0.96 mg/dL [facility] Estimated Glomerular Filtration Rate 79 mL/min/1.73m >=60 mL/min/1.73 m [facility] Glucose [Mass/Vol] 177 mg/dL High 74 - 99 mg/dL [facility] Potassium [Moles/Vol] 4.2 mmol/L 3.7 - 5.1 mmol/L [facility] Protein [Mass/Vol] 6.0 g/dL Low 6.3 - 8.0 g/dL [facility] Sodium [Moles/Vol] 139 mmol/L 136 - 144 mmol/L [facility] Urea nitrogen [Mass/Vol] 32 mg/dL High 7 - 21 mg/dL [facility] MAGNESIUM BLDon 07-25-2021 Magnesium [Mass/Vol] 1.7 mg/dL 1.7 - 2 .3 mg/dL [facility] CBC W Auto Differential pane l (Bld)on 07-08-2021 Abs Baso 0.09 k/uL <0.11 k/uL [facility] Abs Josephine 0.14 k/uL <0.87 k/uL [facility] Absolute nRBC <0.01 <0.01 k/uL [facility] Anisocytosis Ql (Bld) Present [facility] Basophils/100 WBC (Bld) 2.0 % [facility] Differential cell count method Nom (Bld) Manual [facility] Eosinophils (Bld) [#/Vol] 0.23 10*3/uL <0.46 k/uL [facility] Eosinophils/100 WBC (Bld) 5.0 % [facility] Erythrocyte distribution width (RBC) [Ratio] 15.8 % High 11.5 - 15.0 % [facility] Hematocrit (Bld) [Volume fraction] 40.1 % 36.0 - 46.0 % [facility] Hemoglobin (Bld) [Mass/Vol] 13.2 g/dL 11.5 - 15.5 g/dL [facility] Lymphocytes (Bld) [#/Vol] 1.07 10*3/uL 1.00 - 4.00 k/uL [facility] Lymphocytes/100 WBC (Bld) 23.0 % [facility] MCH (RBC) [Entitic mass] 31.9 pg 26.0 - 34.0 pg [facility] MCHC (RBC) [Mass/Vol] 32.9 g/dL 30.5 - 36.0 g/dL [facility] MCV (RBC) [Entitic vol] 96.9 fL 80.0 - 100.0 fL [facility] Monocytes/100 WBC (Bld) 3.0 % [facility] Neutrophils (Bld) [#/Vol] 3.12 10*3/uL 1.45 - 7.50 k/uL [facility] Neutrophils/100 WBC (Bld) 67.0 % [facility] Nucleated RBC/100 WBC (Bld) [Ratio] 0.0 /100 WBC [facility] Ovalocytes LM Ql (Bld) Few [facility] Platelet Estimate Adequate [facility] Platelet mean volume (Bld) [Entitic vol] 11.0 fL 9.0 - 12.7 fL [facility] Platelets (Bld) [#/Vol] 191 10*3/uL 150 - 400 k/uL [facility] RBC (Bld) [#/Vol] 4.14 10*6/uL 3.90 - 5.2 0 m/uL [facility] Red Cell Morph Reviewed [facility] WBC (Bld) [#/Vol] 4.66 10*3/uL 3.70 - 11.00 k/uL [facility] Comprehensive metabolic 2000 panelon 07-08-2021 Albumin [Mass/Vol] 3.3 g/dL Low 3.9 - 4.9 g/dL [facility] ALP [Catalytic activity/Vol] 76 U/L 34 - 123 U/L [facility] ALT [Catalytic activity/Vol] 21 U/L 7 - 38 U/L [facility] Anion gap [Moles/Vol] 8 mmol/L Low 9 - 18 mmol/L [facility] AST [Catalytic activity/Vol] 27 U/L 13 - 35 U/L [facility] Bilirubin [Mass/Vol] 1.4 mg/dL High 0.2 - 1 .3 mg/dL [facility] Calcium [Mass/Vol] 8.4 mg/dL Low 8.5 - 10. 2 mg/dL [facility] Chloride [Moles/Vol] 105 mmol/L 97 - 10 5 mmol/L [facility] CO2 [Moles/Vol] 26 mmol/L 22 - 30 mmol/L [facility] Creatinine [Mass/Vol] 0.79 mg/dL 0.58 - 0.96 mg/dL [facility] Estimated Glomerular Filtration Rate 75 mL/min/1.73m >=60 mL/min/1.73 m [facility] Glucose [Mass/Vol] 177 mg/dL High 74 - 99 mg/dL [facility] Potassium [Moles/Vol] 4.2 mmol/L 3.7 - 5.1 mmol/L [facility] Protein [Mass/Vol] 5.8 g/dL Low 6.3 - 8.0 g/dL [facility] Sodium [Moles/Vol] 139 mmol/L 136 - 144 mmol/L [facility] Urea nitrogen [Mass/Vol] 21 mg/dL 7 - 21 mg/dL [facility] MAGNESIUM BLDon 07-08-2021 Magnesium [Mass/Vol] 1.7 mg/dL 1.7 - 2 .3 mg/dL [facility] PT panel Coag (PPP)on 04-29- 2022 INR Coag (PPP) [Relative time] 4.4 {INR} High 0.9 - 1.3 [facility] PT Coag (PPP) [Time] 43.4 s High 9.7 - 1 3.0 sec [facility] UA DIP, URINE (POC)on 2021 BILIRUBIN UA (POCT) Negative Negative [facility] CLARITY UA (POCT) Clear [facility] COLOR UA (POCT) Yellow [facility] GLUCOSE UA (POCT) Negative Negative mg/dL [facility] HEMOGLOBIN/BLOOD UA (POCT) Trace-intact Abnormal Negative [facility] KETONE UA (POCT) Negative Negative mg/dL [facility] LEUKOCYTES UA (POCT) Small Abnormal Negative [facility] NITRITE UA (POCT) Negative Negative [facility] PH UA (POCT) 5.5 4.5 - 8.0 [facility] Protein Ql (U) 30 mg/dL Abnormal Negative mg/dL [facility] SPECIFIC GRAVITY UA (POCT) 1.025 1.005 - 1.030 [facility] UROBILINOGEN UA (POCT) 1.0 E.U./dL Normal E.U./dL [facility] CBC W Auto Differential pane l (Bld)on 06-27-2021 Abs Immature Gran 0.04 k/uL <0.10 k/uL [facility] Basophils (Bld) [#/Vol] 0.03 10*3/uL <0.11 k/uL [facility] Basophils/100 WBC (Bld) 0.4 % [facility] Differential cell count method Nom (Bld) Auto [facility] Eosinophils (Bld) [#/Vol] 0.31 10*3/uL <0.46 k/uL [facility] Eosinophils/100 WBC (Bld) 4.1 % [facility] Erythrocyte distribution width (RBC) [Ratio] 15.8 % High 11.5 - 15.0 % [facility] Hematocrit (Bld) [Volume fraction] 43.6 % 36.0 - 46.0 % [facility] Hemoglobin (Bld) [Mass/Vol] 14.4 g/dL 11.5 - 15.5 g/dL [facility] Immature Gran % 0.5 % [facility] Lymphocytes (Bld) [#/Vol] 1.72 10*3/uL 1.00 - 4.00 k/uL [facility] Lymphocytes/100 WBC (Bld) 22.8 % [facility] MCH (RBC) [Entitic mass] 31.8 pg 26.0 - 34.0 pg [facility] MCHC (RBC) [Mass/Vol] 33.0 g/dL 30.5 - 36.0 g/dL [facility] MCV (RBC) [Entitic vol] 96.2 fL 80.0 - 100.0 fL [facility] Monocytes (Bld) [#/Vol] 0.68 10*3/uL <0.87 k/uL [facility] Monocytes/100 WBC (Bld) 9.0 % [facility] Neutrophils (Bld) [#/Vol] 4.77 10*3/uL 1.45 - 7.50 k/uL [facility] Neutrophils/100 WBC (Bld) 63.2 % [facility] Nucleated RBC (Bld) [#/Vol] 10*3/uL <0.01 k/uL [facility] Nucleated RBC/100 WBC (Bld) [Ratio] 0.0 /100 WBC [facility] Platelet mean volume (Bld) [Entitic vol] 10.9 fL 9.0 - 12.7 fL [facility] Platelets (Bld) [#/Vol] 207 10*3/uL 150 - 400 k/uL [facility] RBC (Bld) [#/Vol] 4.53 10*6/uL 3.90 - 5.2 0 m/uL [facility] WBC (Bld) [#/Vol] 7.55 10*3/uL 3.70 - 11.00 k/uL [facility] Comprehensive metabolic 2000 panelon 06-27-2021 Albumin [Mass/Vol] 3.5 g/dL Low 3.9 - 4.9 g/dL [facility] ALP [Catalytic activity/Vol] 84 U/L 34 - 123 U/L [facility] ALT [Catalytic activity/Vol] 20 U/L 7 - 38 U/L [facility] Anion gap [Moles/Vol] 9 mmol/L 9 - 18 mmol/L [facility] AST [Catalytic activity/Vol] 27 U/L 13 - 35 U/L [facility] Bilirubin [Mass/Vol] 1.1 mg/dL 0.2 - 1 .3 mg/dL [facility] Calcium [Mass/Vol] 8.5 mg/dL 8.5 - 10. 2 mg/dL [facility] Chloride [Moles/Vol] 104 mmol/L 97 - 10 5 mmol/L [facility] CO2 [Moles/Vol] 24 mmol/L 22 - 30 mmol/L [facility] Creatinine [Mass/Vol] 0.84 mg/dL 0.58 - 0.96 mg/dL [facility] Estimated Glomerular Filtration Rate 70 mL/min/1.73m >=60 mL/min/1.73 m [facility] Glucose [Mass/Vol] 231 mg/dL High 74 - 99 mg/dL [facility] Potassium [Moles/Vol] 4.0 mmol/L 3.7 - 5.1 mmol/L [facility] Protein [Mass/Vol] 6.4 g/dL 6.3 - 8.0 g/dL [facility] Sodium [Moles/Vol] 137 mmol/L 136 - 144 mmol/L [facility] Urea nitrogen [Mass/Vol] 16 mg/dL 7 - 21 mg/dL [facility] MAGNESIUM BLDon 06-27-2021 Magnesium [Mass/Vol] 1.6 mg/dL Low 1.7 - 2 .3 mg/dL [facility] PT panel Coag (PPP)on 2021 INR Coag (PPP) [Relative time] 3.0 {INR} High 0.9 - 1.3 [facility] PT Coag (PPP) [Time] 29.8 s High 9.7 - 1 3.0 sec [facility] CBC W Auto Differential pane l (Bld)on 06-20-2021 Abs Immature Gran <0.03 <0.10 k/uL [facility] Basophils (Bld) [#/Vol] 0.05 10*3/uL <0.11 k/uL [facility] Basophils/100 WBC (Bld) 0.8 % [facility] Differential cell count method Nom (Bld) Auto [facility] Eosinophils (Bld) [#/Vol] 0.29 10*3/uL <0.46 k/uL [facility] Eosinophils/100 WBC (Bld) 4.4 % [facility] Erythrocyte distribution width (RBC) [Ratio] 15.8 % High 11.5 - 15.0 % [facility] Hematocrit (Bld) [Volume fraction] 44.5 % 36.0 - 46.0 % [facility] Hemoglobin (Bld) [Mass/Vol] 14.7 g/dL 11.5 - 15.5 g/dL [facility] Immature Gran % 0.2 % [facility] Lymphocytes (Bld) [#/Vol] 1.70 10*3/uL 1.00 - 4.00 k/uL [facility] Lymphocytes/100 WBC (Bld) 25.5 % [facility] MCH (RBC) [Entitic mass] 31.8 pg 26.0 - 34.0 pg [facility] MCHC (RBC) [Mass/Vol] 33.0 g/dL 30.5 - 36.0 g/dL [facility] MCV (RBC) [Entitic vol] 96.3 fL 80.0 - 100.0 fL [facility] Monocytes (Bld) [#/Vol] 0.52 10*3/uL <0.87 k/uL [facility] Monocytes/100 WBC (Bld) 7.8 % [facility] Neutrophils (Bld) [#/Vol] 4.09 10*3/uL 1.45 - 7.50 k/uL [facility] Neutrophils/100 WBC (Bld) 61.3 % [facility] Nucleated RBC (Bld) [#/Vol] 10*3/uL <0.01 k/uL [facility] Nucleated RBC/100 WBC (Bld) [Ratio] 0.0 /100 WBC [facility] Platelet mean volume (Bld) [Entitic vol] 10.5 fL 9.0 - 12.7 fL [facility] Platelets (Bld) [#/Vol] 233 10*3/uL 150 - 400 k/uL [facility] RBC (Bld) [#/Vol] 4.62 10*6/uL 3.90 - 5.2 0 m/uL [facility] WBC (Bld) [#/Vol] 6.66 10*3/uL 3.70 - 11.00 k/uL [facility] Comprehensive metabolic 2000 panelon 06-20-2021 Albumin [Mass/Vol] 3.7 g/dL Low 3.9 - 4.9 g/dL [facility] ALP [Catalytic activity/Vol] 94 U/L 34 - 123 U/L [facility] ALT [Catalytic activity/Vol] 22 U/L 7 - 38 U/L [facility] Anion gap [Moles/Vol] 9 mmol/L 9 - 18 mmol/L [facility] AST [Catalytic activity/Vol] 32 U/L 13 - 35 U/L [facility] Bilirubin [Mass/Vol] 0.8 mg/dL 0.2 - 1 .3 mg/dL [facility] Calcium [Mass/Vol] 8.8 mg/dL 8.5 - 10. 2 mg/dL [facility] Chloride [Moles/Vol] 106 mmol/L High 97 - 10 5 mmol/L [facility] CO2 [Moles/Vol] 25 mmol/L 22 - 30 mmol/L [facility] Creatinine [Mass/Vol] 0.97 mg/dL High 0.58 - 0.96 mg/dL [facility] Estimated Glomerular Filtration Rate 59 mL/min/1.73m Low >=60 mL/min/1.73 m [facility] Glucose [Mass/Vol] 96 mg/dL 74 - 99 mg/dL [facility] Potassium [Moles/Vol] 3.8 mmol/L 3.7 - 5.1 mmol/L [facility] Protein [Mass/Vol] 6.5 g/dL 6.3 - 8.0 g/dL [facility] Sodium [Moles/Vol] 140 mmol/L 136 - 144 mmol/L [facility] Urea nitrogen [Mass/Vol] 20 mg/dL 7 - 21 mg/dL [facility] MAGNESIUM BLDon 06-20-2021 Magnesium [Mass/Vol] 1.7 mg/dL 1.7 - 2 .3 mg/dL [facility] UA DIP, URINE (POC)on 2021 BILIRUBIN UA (POCT) Negative Negative [facility] CLARITY UA (POCT) Clear [facility] COLOR UA (POCT) Yellow [facility] GLUCOSE UA (POCT) Negative Negative mg/dL [facility] HEMOGLOBIN/BLOOD UA (POCT) Negative Negative [facility] KETONE UA (POCT) Negative Negative mg/dL [facility] LEUKOCYTES UA (POCT) Small Abnormal Negative [facility] NITRITE UA (POCT) Negative Negative [facility] PH UA (POCT) 5.0 4.5 - 8.0 [facility] Protein Ql (U) Negative Negative mg/dL [facility] SPECIFIC GRAVITY UA (POCT) 1.010 1.005 - 1.030 [facility] UROBILINOGEN UA (POCT) 0.2 E.U./dL Normal E.U./dL [facility] Office Visit: Diabetes Follo w Upon 01-01-2017 Protein mass conc Done Invalid Interpretation Code [facility] Work Phone: Office Visiton 10-03-2016 Protein mass conc Done [facility] Work Phone: Office Visit: follow up appo intmegha diabeteson 07-04-2016 Fall risk assessment No Invalid Interpretation Code [facility] Work Phone: Tobacco smoking status NHIS Never Invalid Interpretation Code [facility] Work Phone: Tobacco smoking status NHIS Never smoker Invalid Interpretation Code [facility] Work Phone: Lab Report: Comprehensive Co tabolic Profilon 06-30-2016 Albumin mass conc 3.0 g/dL Low 3.4-5.0 [facility] Work Phone: Albumin/Globulin mass ratio 0.8 {ratio} Low 0.9-2.4 [facility] Work Phone: ALP enzyme act/vol (Bld) 89 U/L Invalid Interpretation Code 45-117 [facility] Work Phone: ALT enzyme act/vol 21 U/L Invalid Interpretation Code 12-78 [facility] Work Phone: Anion gap 4 molar conc 7 Invalid Interpretation Code 5-15 [facility] Disease Work Phone: Anion gap molar conc 7 mmol/L 5-[address] [facility] Work Phone: AST enzyme act/vol 20 U/L Invalid Interpretation Code 15-37 [facility] Work Phone: Bilirubin mass conc 0.70 mg/dL Invalid Interpretation Code 0.20-1.00 [facility] Work Phone: Calcium mass conc 8.5 mg/dL Invalid Interpretation Code 8.5-10.1 [facility] Work Phone: Chloride molar conc 108 mmol/L High 98-107 [facility] Work Phone: CO2 ppres (BldV) 28.0 mmol/L Invalid Interpretation Code 21.0-32.0 [facility] Work Phone: Creatinine mass conc 0.85 mg/dL Invalid Interpretation Code 0.55-1.02 [facility] Work Phone: EST GFR - AA 84 mL/min Invalid Interpretation Code >60 [facility] Work Phone: GFR/1.73 sq M predicted among non-blacks MDRD vol rate/area (S/P/Bld) 69 mL/min/{1.73_m2} Invalid Interpretation Code >60 [facility] Work Phone: Globulin Calculated mass conc (S) 3.6 g/dL High 2.3-3.5 [facility] Work Phone: Globulin mass conc (S) 3.6 g/dL High 2.3-3.5 [facility] Work Phone: Glucose mass conc 105 mg/dL Invalid Interpretation Code 70-110 [facility] Work Phone: Potassium molar conc 3.8 mmol/L Invalid Interpretation Code 3.5-5.1 [facility] Work Phone: Protein mass conc 6.6 g/dL Invalid Interpretation Code 6.4-8.2 [facility] Work Phone: Sodium molar conc 143 mmol/L Invalid Interpretation Code 136-145 [facility] Work Phone: Urea nitrogen mass conc 14 mg/dL Invalid Interpretation Code 7-18 [facility] Work Phone: Urea nitrogen/Creatinine mass ratio 16.5 RATIO Invalid Interpretation Code 10-20 [facility] Work Phone: Lab Report: Hemoglobin A1con 06-30-2016 Hemoglobin A1c/Hemoglobin.total mass fraction (Bld) 6.7 % High 4.2-6.3 [facility] Work Phone: Lab Report: Lipid Profileon 06-30-2016 Cholesterol in HDL mass conc 76 mg/dL Invalid Interpretation Code [facility] Work Phone: Cholesterol in LDL mass conc 29 mg/dL Invalid Interpretation Code 0-130 [facility] Work Phone: [phone] Cholesterol mass conc 116 mg/dL Invalid Interpretation Code 200 [employer] Work Phone: Lipoprotein.pre-beta mass conc 11 mg/dL Invalid Interpretation Code 5-40 [facility] Work Phone: Triglyceride mass conc 55 mg/dL Invalid Interpretation Code [facility] Work Phone: Lab Report: Microalb:Creat R atio,Random URon 06-30-2016 Albumin DL <= 20 mg/L mass conc (U) 0.83 mg/dL Invalid Interpretation Code Units converted. See lab report for original value. [email or web address] Work Phone: Albumin/Creatinine DL <= 20 mg/L Ratio (U) 14.0 MG/G CRE Invalid Interpretation Code <30 mg/g CRE [employer] Work Phone: Creatinine mass conc (U) 59.10 mg/dL Invalid Interpretation Code NO RANGE EST. [email or web address] Work Phone: Lab Report: Prothrombin Time w/INRon 06-30-2016 INR Coag RelTime (PPP) 2.1 {INR} Invalid Interpretation Code [email or web address] Work Phone: Prothrombin time (PT) Coag time (PPP) 22.9 s High 11.7-14.9 [facility] Work Phone: Lab Report: Thyroid Stim Hor ruiz (TSH)on 06-30-2016 Thyrotropin Qn 0.90 u[iU]/mL Invalid Interpretation Code 0.358-3.74 [facility] Work Phone: Chart Maintenanceon 05-24-19 17 Albumin DL <= 20 mg/L mass conc (U) 8.3 mg/L Invalid Interpretation Code [facility] Work Phone: Triglyceride mass conc 55 mg/dL Invalid Interpretation Code [facility] Work Phone: Office Visit: Transfer of Ca re from [facility] 12-14-2014 MG Breast screening Normal Bilateral Invalid Interpretation Code [facility] Work Phone: Office Visit: Transfer of Ca re from [facility] 11-16-2008 Protein mass conc Colonoscopy (procedure) Invali d Interpretation Code [facility] Work Phone: Office Visit: Transfer of Ca re from [facility] 03-19-2006 General categories Cyto stain Interp (Cervical or vaginal smear or scraping) hysterectomy Invalid Interpretation Code [facility] Work Phone: Vital Signs Date Time Vital Sign Value Performing Clinician Shirlene grace 10-10-2024 09:42-0400 Body mass index (BMI) [Ratio] 26.09 kg/m2 Krystal Anderson PA-C Work Phone: [facility] 10-10-2024 09:42-0400 Body temperature 97.81 [degF] Krystal Anderson PA-C Work Phone: [facility] 10-10-2024 09:42-0400 Body weight 68.95 kg Krystal Anderson PA-C Work Phone: [facility] 10-10-2024 09:42-0400 Diastolic blood pressure 58 mm[Hg] Krystal Anderson PA-C Work Phone: [facility] 10-10-2024 09:42-0400 Heart rate 96 /min Krystal Anderson PA-C Work Phone: [facility] 10-10-2024 09:42-0400 Respiratory rate 18 /min Krystal Anderson PA-C Work Phone: [facility] 10-10-2024 09:42-0400 SaO2% (BldA) [Mass fraction] 100 % Krystal Anderson PA-C Work Phone: [facility] 10-10-2024 09:42-0400 Systolic blood pressure 110 mm[Hg] Krystal Anderson PA-C Work Phone: [facility] 08-05-2024 10:23-0400 Body mass index (BMI) [Ratio] 27.62 kg/m2 Melchor Washington DO Work Phone: [facility] 08-05-2024 10:23-0400 Body temperature 98.91 [degF] Melchor Washington DO Work Phone: [facility] 08-05-2024 10:23-0400 Body weight 73 kg Melchor Washington DO Work Phone: [facility] 08-05-2024 10:23-0400 Diastolic blood pressure 84 mm[Hg] Melchor Washington DO Work Phone: [facility] 08-05-2024 10:23-0400 Heart rate 84 /min Melchor Washington DO Work Phone: [facility] 08-05-2024 10:23-0400 Respiratory rate 20 /min Melchor Washington DO Work Phone: [facility] 08-05-2024 10:23-0400 Systolic blood pressure 136 mm[Hg] Melchor Washington DO Work Phone: [facility] 04-22-2024 11:52-0500 Body mass index (BMI) [Ratio] 27.46 kg/m2 Melchor Washington DO Work Phone: [facility] 04-22-2024 11:52-0500 Body weight 72.58 kg Melchor Washington DO Work Phone: [facility] 04-22-2024 11:52-0500 Diastolic blood pressure 82 mm[Hg] Melchor Washington DO Work Phone: [facility] 04-22-2024 11:52-0500 Heart rate 82 /min Melchor Washington DO Work Phone: [facility] 04-22-2024 11:52-0500 Respiratory rate 18 /min Melchor Washington DO Work Phone: [facility] 04-22-2024 11:52-0500 Systolic blood pressure 128 mm[Hg] Melchor Washington DO Work Phone: [facility] 01-18-2024 10:25-0500 Body mass index (BMI) [Ratio] 27.44 kg/m2 Melchor Washington DO Work Phone: [facility] 01-18-2024 10:25-0500 Body temperature 97.5 [degF] Melchor Washington DO Work Phone: [facility] 01-18-2024 10:25-0500 Body weight 72.5 kg Melchor Washington DO Work Phone: [facility] 01-18-2024 10:25-0500 Diastolic blood pressure 80 mm[Hg] Melchor Washington DO Work Phone: [facility] 01-18-2024 10:25-0500 Heart rate 64 /min Melchor Washington DO Work Phone: [facility] 01-18-2024 10:25-0500 Respiratory rate 20 /min Melchor Washington DO Work Phone: [facility] 01-18-2024 10:25-0500 Systolic blood pressure 122 mm[Hg] Melchor Washington DO Work Phone: [facility] 10-23-2023 10:49-0400 Body temperature 97.5 [degF] Kapil Marge 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 [employer]ACH[employer] Work Phone: [facility] 10-23-2023 10:49-0400 Diastolic blood pressure 86 mm[Hg] Kapil Marge 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 [employer]ACH[employer] Work Phone: [facility] 10-23-2023 10:49-0400 Heart rate 80 /min Kapil Marge 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 [employer]ACHINE Work Phone: [facility] 10-23-2023 10:49-0400 Respiratory rate 18 /min Kapil Marge 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 [employer]ACHINE Work Phone: [facility] 10-23-2023 10:49-0400 SaO2% (BldA) [Mass fraction] 97 % Kapil Marge 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 [employer] MACHINE Work Phone: [facility] 10-23-2023 10:49-0400 Systolic blood pressure 132 mm[Hg] Kapil Guillen APRNBhavyaLABORER SYRUP MACHINE Work Phone: [facility] 07-17-2023 13:51-0400 Body mass index (BMI) [Ratio] 27.81 kg/m2 Melchor Washington DO Work Phone: [facility] 07-17-2023 13:51-0400 Body temperature 97.3 [degF] Melchor Washington DO Work Phone: [facility] 07-17-2023 13:51-0400 Body weight 73.48 kg Melchor Washington DO Work Phone: [facility] 07-17-2023 13:51-0400 Diastolic blood pressure 80 mm[Hg] Melchor Washington DO Work Phone: [facility] 07-17-2023 13:51-0400 Heart rate 64 /min Melchor Washington DO Work Phone: [facility] 07-17-2023 13:51-0400 Respiratory rate 16 /min Melchor Washington DO Work Phone: [facility] 07-17-2023 13:51-0400 Systolic blood pressure 136 mm[Hg] Melchor Washington DO Work Phone: [facility] 04-17-2023 13:08-0500 Body temperature 98.1 [degF] Melchor Washington DO Work Phone: [facility] 04-17-2023 13:08-0500 Body weight 75.3 kg Melchor Washington DO Work Phone: [facility] 04-17-2023 13:08-0500 Diastolic blood pressure 80 mm[Hg] Melchor Washington DO Work Phone: [facility] 04-17-2023 13:08-0500 Heart rate 64 /min Melchor Washington DO Work Phone: [facility] 04-17-2023 13:08-0500 Respiratory rate 20 /min Melchor Washington DO Work Phone: [facility] 04-17-2023 13:08-0500 Systolic blood pressure 134 mm[Hg] Melchor Washington DO Work Phone: [facility] 01-09-2023 12:26-0400 Body temperature 97 [degF] Melchor Washington DO Work Phone: [facility] 01-09-2023 12:26-0400 Body weight 75.3 kg Melchor Washington DO Work Phone: [facility] 01-09-2023 12:26-0400 Diastolic blood pressure 62 mm[Hg] Melchor Washington DO Work Phone: [facility] 01-09-2023 12:26-0400 Heart rate 68 /min Melchor Washington DO Work Phone: [facility] 01-09-2023 12:26-0400 Respiratory rate 20 /min Melchor Washington DO Work Phone: [facility] 01-09-2023 12:26-0400 Systolic blood pressure 120 mm[Hg] Melchor Washington DO Work Phone: [facility] 07-03-2022 10:42-0400 Body temperature 97 [degF] Melchor Washington DO Work Phone: [facility] 07-03-2022 10:42-0400 Body weight 71.22 kg Melchor Washington DO Work Phone: [facility] 07-03-2022 10:42-0400 Diastolic blood pressure 82 mm[Hg] Melchor Washington DO Work Phone: [facility] 07-03-2022 10:42-0400 Heart rate 80 /min Melchor Washington DO Work Phone: [facility] 07-03-2022 10:42-0400 Respiratory rate 16 /min Melchor Washington DO Work Phone: [facility] 07-03-2022 10:42-0400 Systolic blood pressure 138 mm[Hg] Melchor Wahsington DO Work Phone: [facility] 03-20-2022 12:19-0500 Body temperature 97 [degF] Melchor Washington DO Work Phone: [facility] 03-20-2022 12:19-0500 Body weight 71.22 kg Melchor Washington DO Work Phone: [facility] 03-20-2022 12:19-0500 Diastolic blood pressure 60 mm[Hg] Melchor Washington DO Work Phone: [facility] 03-20-2022 12:19-0500 Heart rate 72 /min Melchor Washington DO Work Phone: [facility] 03-20-2022 12:19-0500 Respiratory rate 16 /min Melchor Washington DO Work Phone: [facility] 03-20-2022 12:19-0500 Systolic blood pressure 116 mm[Hg] Melchor Washington DO Work Phone: [facility] 01-16-2022 10:40-0500 Body height 157.[address] Melchor Washington Work Phone: [facility] Work Phone: 01-16-2022 10:40-0500 Body mass index (BMI) [Ratio] 27.8 kg/m2 Dr. Melchor Washington Work Phone: [facility] Work Phone: 01-16-2022 10:40-0500 Body temperature 96.4 [degF] Dr. Melchor Washington Work Phone: [facility] Work Phone: 01-16-2022 10:40-0500 Body weight 69.[address] Melchor Washington Work Phone: [facility] Work Phone: 01-16-2022 10:40-0500 Diastolic blood pressure 84 mm[Hg] Dr. Melchor Washington Work Phone: [facility] Work Phone: 01-16-2022 10:40-0500 Heart rate 88 /min Dr. Melchor Washington Work Phone: [facility] Work Phone: 01-16-2022 10:40-0500 Respiratory rate 18 /min Dr. Melchor Washington Work Phone: [facility] Work Phone: 01-16-2022 10:40-0500 SaO2% (BldA) [Mass fraction] 98 % Dr. Melchor Washington Work Phone: [facility] Work Phone: 01-16-2022 10:40-0500 Systolic blood pressure 155 mm[Hg] Dr. Melchor Washington Work Phone: [facility] Work Phone: 12-14-2021 12:29-0400 Body temperature 97.5 [degF] Melchor Washington DO Work Phone: [facility] 12-14-2021 12:29-0400 Body weight 70.31 kg Melchor Washington DO Work Phone: [facility] 12-14-2021 12:29-0400 Diastolic blood pressure 60 mm[Hg] Melchor Washington DO Work Phone: [facility] 12-14-2021 12:29-0400 Heart rate 80 /min Melchor Washington DO Work Phone: [facility] 12-14-2021 12:29-0400 Respiratory rate 16 /min Melchor Washington DO Work Phone: [facility] 12-14-2021 12:29-0400 Systolic blood pressure 120 mm[Hg] Melchor Wahsington DO Work Phone: [facility] 10-19-2021 10:00-0400 Body temperature 97.3 [degF] Melchor Washington DO Work Phone: [facility] 10-19-2021 10:00-0400 Body weight 68.49 kg Melchor Washington DO Work Phone: [facility] 10-19-2021 10:00-0400 Diastolic blood pressure 70 mm[Hg] Melchor Washington DO Work Phone: [facility] 10-19-2021 10:00-0400 Heart rate 80 /min Melchor Washington DO Work Phone: [facility] 10-19-2021 10:00-0400 Respiratory rate 16 /min Melchor Washington DO Work Phone: [facility] 10-19-2021 10:00-0400 Systolic blood pressure 120 mm[Hg] Melchor Washington DO Work Phone: [facility] 08-24-2021 09:50-0400 Body height 162.6 cm Ramírez Patel Jr., MD Work Phone: [facility] 08-24-2021 09:50-0400 Body weight 70.58 kg Ramírez Patel Jr., MD Work Phone: [facility] 08-24-2021 09:50-0400 Diastolic blood pressure 80 mm[Hg] Ramírez Patel Jr., MD Work Phone: [facility] 08-24-2021 09:50-0400 Heart rate 84 /min Ramírez Patel Jr., MD Work Phone: [facility] 08-24-2021 09:50-0400 Systolic blood pressure 157 mm[Hg] Ramírez Patel Jr., MD Work Phone: [facility] 08-05-2021 11:30-0400 Body weight 70.31 kg [facility] Work Phone: [facility] 07-26-2021 09:52-0400 Body height 161.3 cm Gricelda Villarreal 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 [employer] MACHINE Work Phone: [facility] 07-26-2021 09:52-0400 Body weight 71.7 kg Gricelda Villarreal 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 [employer] MACHINE Work Phone: [facility] 07-26-2021 09:52-0400 Diastolic blood pressure 61 mm[Hg] Gricelda Villarreal 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 [employer] MACHINE Work Phone: [facility] 07-26-2021 09:52-0400 Systolic blood pressure 152 mm[Hg] Gricelda Villarreal APRN.LABORER [employer] MACHINE Work Phone: [facility] 07-26-2021 09:30-0400 Body temperature 98.2 [degF] Chair Lute Packer Or Applier Work Phone: [facility] 07-26-2021 09:30-0400 Body weight 71.7 kg Chair Lute Packer Or Applier Work Phone: [facility] 07-26-2021 09:30-0400 Diastolic blood pressure 61 mm[Hg] Chair Lute Packer Or Applier Work Phone: [facility] 07-26-2021 09:30-0400 Heart rate 78 /min Chair Lute Packer Or Applier Work Phone: [facility] 07-26-2021 09:30-0400 Respiratory rate 17 /min Chair Lute Packer Or App[employer] Work Phone: [facility] 07-26-2021 09:30-0400 SaO2% (BldA) [Mass fraction] 99 % Chair Lute Packer [employer] Applier Work Phone: [facility] 07-26-2021 09:30-0400 Systolic blood pressure 152 mm[Hg] Chair Lute Packer Or Applier Work Phone: [facility] 07-08-2021 10:59-0400 Body weight 70.31 kg [facility] Work Phone: [facility] 06-28-2021 10:21-0400 Body temperature 97.7 [degF] Chair Lute Packer Or Applier Work Phone: [facility] 06-28-2021 10:21-0400 Body weight 72 kg Chair Lute Packer [employer] Work Phone: [facility] 06-28-2021 10:21-0400 Diastolic blood pressure 87 mm[Hg] Chair Lute Packer [employer] Work Phone: [facility] 06-28-2021 10:21-0400 Heart rate 82 /min Chair Lute Packer Or [employer] Work Phone: [facility] 06-28-2021 10:21-0400 Respiratory rate 18 /min Chair Lute Packer [employer] Work Phone: [facility] 06-28-2021 10:21-0400 SaO2% (BldA) [Mass fraction] 100 % Chair Lute Packer [employer] Work Phone: [facility] 06-28-2021 10:21-0400 Systolic blood pressure 164 mm[Hg] Chair Lute Packer Or Applier Work Phone: [facility] 06-21-2021 10:53-0400 Diastolic blood pressure 60 mm[Hg] Chair Lute Packer Or Applier Work Phone: [facility] 06-21-2021 10:53-0400 Heart rate 85 /min Chair Lute Packer [employer] Work Phone: [facility] 06-21-2021 10:53-0400 SaO2% (BldA) [Mass fraction] 98 % Chair Lute Packer [employer] Work Phone: [facility] 06-21-2021 10:53-0400 Systolic blood pressure 134 mm[Hg] Chair Lute Packer [employer] Work Phone: [facility] 06-21-2021 08:22-0400 Body temperature 98.01 [degF] Chair Lute Packer [employer] Work Phone: [facility] 06-21-2021 08:22-0400 Body weight 72.4 kg Chair Lute Packer [employer] Work Phone: [facility] 06-21-2021 08:22-0400 Respiratory rate 18 /min Chair Lute Packer Or Applier Work Phone: [facility] 06-08-2021 08:45-0400 Body height 161.3 cm Ramírez Patel Jr., MD Work Phone: [facility] 06-08-2021 08:45-0400 Body temperature 96.91 [degF] Ramírez Patel Jr., MD Work Phone: [facility] 06-08-2021 08:45-0400 Body weight 72.5 kg Ramírez Patel Jr., MD Work Phone: [facility] 06-08-2021 08:45-0400 Diastolic blood pressure 78 mm[Hg] Ramírez Patel Jr., MD Work Phone: [facility] 06-08-2021 08:45-0400 Heart rate 80 /min Ramírez Patel Jr., MD Work Phone: [facility] 06-08-2021 08:45-0400 Respiratory rate 16 /min Ramírez Patel Jr., MD Work Phone: [facility] 06-08-2021 08:45-0400 SaO2% (BldA) [Mass fraction] 99 % Ramírez Patel Jr., MD Work Phone: [facility] 06-08-2021 08:45-0400 Systolic blood pressure 159 mm[Hg] Ramírez Patel Jr., MD Work Phone: [facility] 01-01-2017 12:35-0400 BMI (Body Mass Index) 30.48 kg/m2 [facility] Work Phone: 01-01-2017 12:35-0400 BP Diastolic 80 mm[Hg] [facility] Work Phone: 01-01-2017 12:35-0400 BP Systolic 140 mm[Hg] [facility] Work Phone: 01-01-2017 12:35-0400 Height 165.1 cm [facility] Work Phone: 01-01-2017 12:35-0400 Pulse (Heart Rate) 88 /min [facility] Work Phone: 01-01-2017 12:35-0400 Respiratory Rate 20 /min [facility] Work Phone: 01-01-2017 12:35-0400 Weight 83.1 kg [facility] Work Phone: 10-03-2016 08:22-0400 BMI (Body Mass Index) 29.85 kg/m2 Ambika Godoy LPN [facility] Work Phone: 10-03-2016 08:22-0400 Body Temperature 97.9 [degF] Ambika Godoy [facility] Work Phone: 10-03-2016 08:22-0400 BP Diastolic 70 mm[Hg] Ambika Godoy [facility] Work Phone: 10-03-2016 08:22-0400 BP Diastolic 78 mm[Hg] Ambika Godoy [facility] Work Phone: 10-03-2016 08:22-0400 BP Systolic 130 mm[Hg] Ambika Godoy [facility] Work Phone: 10-03-2016 08:22-0400 BP Systolic 142 mm[Hg] Ambika Godoy [facility] Work Phone: 10-03-2016 08:22-0400 Height 165.1 cm Ambika Godoy [facility] Work Phone: 10-03-2016 08:22-0400 Pulse (Heart Rate) 79 /min Ambika Godoy [facility] Work Phone: 10-03-2016 08:22-0400 Respiratory Rate 18 /min Ambika Godoy [facility] Work Phone: 10-03-2016 08:22-0400 Weight 81.38 kg Ambika Godoy [facility] Work Phone: 07-04-2016 09:04-0400 Body Temperature 98.6 [degF] Ambika Godoy [facility] Work Phone: 07-04-2016 09:04-0400 BSA (Body Surface Area) 1.87 m2 Ambika Godoy LPN [facility] Work Phone: 07-04-2016 [id number] Height 165.1 cm Ambika Godoy OLES[facility] Work Phone: 07-04-2016 09:04-0400 Weight 79.65 kg Ambika Godoy OLESYA [facility] Work Phone: Encounters Encounter Date Encounter Type Care Provider Facility Start: 10-10-2024 End: 10-10-2024 Telephone encounter Krystal Anderson PA-C Work Phone: [facility] Comment on above: Results Start: 10-10-2024 End: 10-10-2024 ambulatory Lab[facility] Work Phone: Hematology/Oncology Comment on above: Cancer of peritoneum (HCC) (Primary Dx) Start: 10-10-2024 End: 10-10-2024 Office outpatient visit 25 minutes Krystal Anderson PA-C Work Phone: [facility] Comment on above: Generalized abdomina l pain (Primary Dx); Bowel habit changes; Cancer of peritoneum (HCC); Malignant neoplasm of both ovaries (HCC) Start: 10-09-2024 End: 10-09-2024 Nursing evaluation of patient and report Mi Nurse Work Phone: [facility] Comment on above: Vitamin B12 deficien cy (Primary Dx) Start: 10-07-2024 End: 10-07-2024 Telephone encounter Melchor Washington DO Work Phone: [facility] Comment on above: Anticoagulation Start: 10-07-2024 End: 10-07-2024 ambulatory [facility] Work Phone: Hematology/Oncology Comment on above: Pulmonary embolism, other, unspecified chronicity, unspecified whether acute cor pulmonale present (HCC); Malignant neoplasm of both ovaries (HCC) Start: 09-26-2024 End: 10-04-2024 Telephone encounter Melchor Washington DO Work Phone: [facility] Comment on above: Orders (Grace Adan) Start: 09-11-2024 End: 09-11-2024 Nursing evaluation of patient and report Mi Nurse Work Phone: [facility] Comment on above: Vitamin B12 deficien cy (Primary Dx) Start: 09-11-2024 End: 09-11-2024 ambulatory MELCHOR L WASHINGTON Facility:[facility] Start: 09-02-2024 End: 09-02-2024 ambulatory [facility] Work Phone: Hematology/Oncology Comment on above: Malignant neoplasm o f both ovaries (HCC) (Primary Dx); Ovarian cancer, bilateral (HCC); Pulmonary embolism, other, unspecified chronicity, unspecified whether acute cor pulmonale present (HCC) Start: 08-19-2024 End: 08-19-2024 Anticoagulant drug monitoring [facility] Work Phone[facility] Comment on above: Chronic anticoagulat ion (Primary Dx); Phlebitis Start: 08-19-2024 End: 08-19-2024 ambulatory MELCHOR L WASHINGTON Facility:[facility] Start: 08-14-2024 End: 08-14-2024 Nursing evaluation of patient and report Mi Nurse Work Phone: [facility] Comment on above: Vitamin B12 deficien cy (Primary Dx) Start: 08-14-2024 End: 08-14-2024 [facility] Work [facility]: [facility] Comment on above: Chronic anticoagulat ion (Primary Dx); Phlebitis Start: 08-14-2024 End: 08-14-2024 ambulatory MELCHOR L [place] Facility:[facility] Start: 08-05-2024 End: 08-05-2024 Patient encounter procedure Melchor Alvaradoon DO Work Phone: [facility] Comment on above: Acute non-recurrent maxillary sinusitis (Primary Dx); Essential hypertension, benign; Chronic anticoagulation; Hypothyroidism, acquired; 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, 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, on [facility] insulin pump (HCC); Vitamin B12 deficiency; Pure hypercholesterolemia; Cancer of peritoneum (HCC) Start: 08-05-2024 End: 08-05-2024 ambulatory MELCHOR L W[place] Facility:[facility] Start: 07-29-2024 End: 07-29-2024 ambulatory MELCHOR POOLRISON Facility:[facility] Start: 07-17-2024 End: 07-17-2024 Nursing evaluation of patient and report Mi Nurse Work Phone: [facility] Comment on above: Vitamin B12 deficien cy (Primary Dx) Start: 07-17-2024 End: 07-17-2024 Anticoagulant drug monitoring [facility] Work Phone: [facility] [place] Comment on above: Chronic anticoagulat ion (Primary Dx); Phlebitis Start: 07-17-2024 End: 07-17-2024 ambulatory MELCHOR ALVARADOON Facility:[facility] Start: 07-07-2024 End: 07-07-2024 ambulatory Melchor [place] Facility:[facility] Start: 07-01-2024 End: 07-01-2024 Telephone encounter Melchor Alvaradoon DO Work Phone: [facility] Comment on above: Orders Anticoagulation Start: 07-01-2024 End: 07-01-2024 ambulatory [facility] Work Phone: Hematology/Oncology Comment on above: Malignant neoplasm o f bilateral ovaries (HCC) Start: 06-19-2024 End: 06-19-2024 Nursing evaluation of patient and report Mi Nurse Work Phone: [facility] Comment on above: Vitamin B12 deficien cy (Primary Dx) Start: 06-19-2024 End: 06-19-2024 ambulatory MELCHOR ALVARADOON Facility:[facility] Start: 06-19-2024 End: 06-19-2024 Anticoagulant drug monitoring [facility] Work Phone: [facility] [place] Comment on above: Chronic anticoagulat ion (Primary Dx); Phlebitis Start: 06-04-2024 End: 08-04-2024 Follow-up encounter Melchor Avlaradoon DO Work Phone: [facility] Start: 06-03-2024 End: 06-03-2024 Telephone encounter Melchor Alvaradoon DO Work Phone: [facility] [place] Start: 06-03-2024 End: 06-03-2024 ambulatory [facility] Work Phone: Hematology/Oncology Comment on above: Malignant neoplasm o f bilateral ovaries (HCC) Start: 05-29-2024 End: 05-29-2024 Telephone encounter Melchor Eubanks [place] DO Work Phone: [facility] Comment on above: Orders (poc protime) Start: 05-29-2024 End: 05-29-2024 Anticoagulant drug monitoring [facility] Work Phone: [facility] [place] Comment on above: Chronic anticoagulat ion (Primary Dx); Phlebitis; Pulmonary embolism, other, unspecified chronicity, unspecified whether acute cor pulmonale present (HCC) Start: 05-29-2024 End: 05-29-2024 ambulatory MELCHOR L [place] Facility:[facility] Start: 05-22-2024 End: 05-22-2024 ambulatory MELCHOR L WASHINGTON Facility:[facility] Start: 05-22-2024 End: 05-22-2024 Nursing evaluation of patient and report Mi Nurse Work Phone: [facility] Comment on above: Vitamin B12 deficien cy (Primary Dx) Start: 05-06-2024 End: 08-06-2024 Telephone encounter Melchor L [place] DO Work Phone: Hematology/Oncology Comment on above: Patient Update Start: 05-06-2024 End: 05-06-2024 ambulatory MELCHOR L WASHINGTON Facility:[facility] Start: 04-22-2024 End: 05-30-2024 Telephone encounter Melchor L [place] DO Work Phone: [facility] Start: 04-22-2024 End: 04-22-2024 ambulatory MELCHOR L WASHINGTON Facility:[facility] Start: 04-22-2024 End: 04-22-2024 Patient encounter procedure Melchor L [place] DO Work Phone: [facility] Comment on above: Pure hypercholestero lemia (Primary Dx); Essential hypertension, benign; Vitamin B12 deficiency; Other 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, unspecified chronicity (HCC); Chronic anticoagulation; Chronic midline low 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; Degeneration of intervertebral disc of lumbar region, unspecified whether pain present; Cancer of peritoneum (HCC); Urinary incontinence, unspecified type; 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, 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, on [facility] insulin [facility] (HCC) (HCC); Hypothyroidism, acquired; Right hip pain; Injury of right hip, subsequent encounter; Vitamin C deficiency; Vitamin D deficiency; Urge incontinence Start: 04-08-2024 End: 04-09-2024 Telephone encounter Melchor [place] DO Work Phone: [facility] Comment on above: Anticoagulation Start: 04-08-2024 End: 04-08-2024 ambulatory [facility] Work Phone: Hematology/Oncology Comment on above: Malignant neoplasm o f bilateral ovaries (HCC); Unspecified hypothyroidism Unspecified hypothyr oidism (Primary Dx) Start: 04-03-2024 End: 04-03-2024 ambulatory Melchor [place] Facility:[facility] Start: 03-25-2024 End: 03-25-2024 ambulatory MELCHOR WASHINGTON Facility:[facility] Start: 03-25-2024 End: 03-25-2024 Nursing evaluation of patient and report Mi Nurse Work Phone: [facility] Comment on above: Vitamin B12 deficien cy (Primary Dx) Start: 03-21-2024 End: 03-22-2024 Telephone encounter Melchor [place] DO Work Phone: [facility] Start: 03-14-2024 End: 03-14-2024 Telephone encounter Melchor Alvaradoon DO Work Phone: [facility] Comment on above: Anticoagulation Start: 03-13-2024 End: 03-13-2024 ambulatory [facility] Work Phone: Hematology/Oncology Comment on above: Neoplasm of uncertai n behavior of skin (Primary Dx); Cancer of peritoneum (HCC) Start: 03-11-2024 End: 03-14-2024 Telephone encounter Melchor [place] DO Work Phone: Hematology/Oncology Comment on above: Appointment Start: 03-11-2024 End: 03-11-2024 ambulatory [facility] Work Phone: Hematology/Oncology Comment on above: Other pulmonary embo lism 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, unspecified chronicity (HCC); Malignant neoplasm of bilateral ovaries (HCC); [place] Start: 02-26-2024 End: 02-26-2024 Nursing evaluation of patient and report Mi Nurse Work Phone: [facility] Comment on above: Vitamin B12 deficien cy (Primary Dx) Start: 02-26-2024 End: 02-26-2024 [facility] Work [facility]: [facility] Comment on above: Chronic anticoagulat ion (Primary Dx); Phlebitis Start: 02-26-2024 End: 02-26-2024 ambulatory MELCHOR WASHINGTON Facility:[facility] Start: 02-20-2024 End: 02-20-2024 Telephone encounter Melchor [place] DO Work Phone: [facility] Start: 02-20-2024 End: 02-20-2024 ambulatory MELCHOR WASHINGTON Facility:[facility] Start: 02-18-2024 End: 02-19-2024 Telephone encounter Melchor [place] DO Work Phone: [facility] Comment on above: Patient Question; Steph antunez (re: urine results from 02/11) Start: 02-13-2024 End: 02-15-2024 Telephone encounter Melchor [place] DO Work Phone: [facility] Comment on above: Anticoagulation Start: 02-12-2024 End: 02-12-2024 ambulatory [facility] Work Phone: Hematology/Oncology Comment on above: Ovarian cancer, bila teral (HCC) (Primary Dx); Other 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, unspecified chronicity (HCC); Malignant neoplasm of bilateral ovaries (HCC); Microscopic hematuria Start: 01-29-2024 End: 01-29-2024 [facility] Work [facility] [place] Comment on above: Chronic anticoagulat ion (Primary Dx); Phlebitis Start: 01-29-2024 End: 01-29-2024 ambulatory MELCHOR POOLRISON Facility:[facility] Start: 01-29-2024 End: 01-29-2024 Nursing evaluation of patient and report Mi Nurse Work Phone: [facility] [place] Comment on above: Vitamin B12 deficien cy (Primary Dx) Start: 01-18-2024 End: 01-18-2024 ambulatory MELCHOR POOLRISON Facility:[facility] Start: 01-18-2024 End: 01-18-2024 Patient encounter procedure Melchor [place] DO Work Phone: [facility] Comment on above: Right hip pain (Prim cody Dx); Injury of right hip, subsequent encounter; Microscopic hematuria; 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, 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, on [facility] (HCC) ([facility]); Pure hypercholesterolemia; Chronic anticoagulation; Vitamin B12 deficiency; History of ovarian cancer; Essential hypertension, benign Start: 01-15-2024 End: 01-18-2024 Telephone encounter Melchor [place] DO Work Phone: [facility] [place] Comment on above: Anticoagulation Start: 01-15-2024 End: 01-15-2024 ambulatory [facility] Work Phone: Hematology/Oncology Comment on above: Hematuria, unspecifi ed type (Primary Dx); Other 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, unspecified chronicity (HCC); Malignant neoplasm of bilateral ovaries (HCC) Start: 01-02-2024 End: 01-02-2024 Nursing evaluation of patient and report Mi Nurse Work Phone: [facility] [place] Comment on above: Vitamin B12 deficien cy (Primary Dx); Encounter for immunization Start: 01-02-2024 End: 01-02-2024 ambulatory MELCHOR L [place] Facility:[facility] Start: 12-27-2023 End: 12-27-2023 ambulatory Melchor Alvaradoon Facility:[facility] Start: 12-25-2023 End: 12-25-2023 Telephone encounter Melchor [place] DO Work Phone: [facility] Start: 12-24-2023 End: 12-25-2023 Refill Kapil Guillen APRN.[employer] Work Phone: [facility] Comment on above: Refill Request Start: 12-12-2023 End: 12-17-2023 Telephone encounter Melchor [place] DO Work Phone: [facility] Comment on above: Anticoagulation Start: 12-11-2023 End: 12-11-2023 ambulatory [facility] Work Phone: Hematology/Oncology Comment on above: Other pulmonary embo lism 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, unspecified chronicity (HCC); Malignant neoplasm of bilateral ovaries (HCC) Start: 12-06-2023 End: 12-06-2023 ambulatory MELCHOR W[place] Facility:[facility] Start: 12-06-2023 End: 12-06-2023 Nursing evaluation of patient and report Mi Nurse Work Phone: [facility] Comment on above: Vitamin B12 deficien cy (Primary Dx); Need for influenza vaccination Start: 11-26-2023 End: 11-26-2023 [facility] Work [facility]: [facility] [place] Comment on above: Chronic anticoagulat ion (Primary Dx); Phlebitis Start: 11-26-2023 End: 11-26-2023 ambulatory MELCHOR WASHINGTON Facility:[facility] Start: 11-23-2023 End: 11-23-2023 Refill Melchor [place] DO Work Phone: [facility] Comment on above: Refill Request Start: 11-13-2023 End: 03-18-2024 Telephone encounter Melchor [place] DO Work Phone: [facility] Comment on above: Anticoagulation Start: 11-13-2023 End: 11-13-2023 ambulatory [facility] Work Phone: Hematology/Oncology Comment on above: Malignant neoplasm o f bilateral ovaries (HCC) Start: 11-08-2023 End: 11-08-2023 Nursing evaluation of patient and report Mi Nurse Work Phone: [facility] [place] Comment on above: Vitamin B12 deficien cy (Primary Dx) Start: 11-08-2023 End: 11-08-2023 Anticoagulant drug monitoring [facility] Work Phone: [facility] [place] Comment on above: Chronic anticoagulat ion (Primary Dx); Phlebitis Start: 11-08-2023 End: 11-08-2023 ambulatory MELCHOR L [place] Facility:[facility] Start: 11-02-2023 End: 11-02-2023 Anticoagulant drug monitoring [facility] Work Phone: [facility] Comment on above: Chronic anticoagulat ion (Primary Dx); Phlebitis Start: 11-02-2023 End: 11-02-2023 ambulatory MELCHOR L [place] Facility:[facility] Start: 10-26-2023 ambulatory Melchor Cha Poolri son DO Work Phone: [facility] Comment on above: Warfarin 1mg Start: 10-26-2023 End: 10-30-2023 Telephone encounter Melchor Poolrison DO Work Phone: [facility] Comment on above: Medication Problem Start: 10-23-2023 Telephone encounter Kapil Almeida APRN.[employer] Work Phone: [facility] Comment on above: Internal Referrals/r esources (Orthopaedic) Start: 10-23-2023 End: 10-23-2023 ambulatory KAPIL GUILLEN Facility:[facility] Start: 10-23-2023 End: 10-23-2023 Patient encounter procedure Kapil Guillen 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 Work Phone: [facility] Comment on above: Right hip pain (Prim cody Dx); Injury of right hip, subsequent encounter; Urinary incontinence, unspecified type; Pure hypercholesterolemia Start: 10-21-2023 End: 10-21-2023 Emergency department patient visit Melchor [place] Facility:[facility] Start: 10-18-2023 End: 10-18-2023 [facility] Work Phone: [facility] Comment on above: Chronic anticoagulat ion (Primary Dx); Phlebitis Start: 10-18-2023 End: 10-18-2023 ambulatory MELCHOR W[place] Facility:[facility] Start: 10-16-2023 End: 10-29-2023 Telephone encounter Melchor [place] DO Work Phone: [facility] Comment on above: Anticoagulation Start: 10-16-2023 End: 10-16-2023 ambulatory [facility] Work Phone: Hematology/Oncology Comment on above: Malignant neoplasm o f bilateral ovaries (HCC) Start: 10-11-2023 End: 10-11-2023 Anticoagulant drug monitoring [facility] Work Phone: [facility] [place] Comment on above: Chronic anticoagulat ion (Primary Dx); Phlebitis Start: 10-11-2023 End: 10-11-2023 Nursing evaluation of patient and report Mi Nurse Work Phone: [facility] Comment on above: Vitamin B12 deficien cy (Primary Dx) Start: 10-11-2023 End: 10-11-2023 ambulatory MELCHOR W[place] Facility:[facility] Start: 09-26-2023 Telephone encounter Melchor white DO Work Phone: [facility] Start: 09-25-2023 End: 09-25-2023 ambulatory Melchor [place] Facility:[facility] Start: 09-18-2023 Telephone encounter Melchor white DO Work Phone: [facility] Comment on above: Anticoagulation Start: 09-18-2023 End: 09-18-2023 ambulatory [facility] Work Phone: Hematology/Oncology Comment on above: Malignant neoplasm o f both ovaries (HCC) (Primary Dx); Malignant neoplasm of bilateral ovaries (HCC) Start: 09-12-2023 End: 09-12-2023 Anticoagulant drug monitoring [facility] Work Phone: [facility] [place] Comment on above: Chronic anticoagulat ion (Primary Dx); Phlebitis Start: 09-12-2023 End: 09-12-2023 Nursing evaluation of patient and report Mi Nurse Work Phone: [facility] Comment on above: Vitamin B12 deficien cy (Primary Dx) Start: 09-10-2023 Refill Melchor Bunch nargis DO Work Phone: [facility] Comment on above: Refill Request Start: 08-29-2023 Telephone encounter Melchor espanaандрей DO Work Phone: [facility] Start: 08-21-2023 Telephone encounter Melchor white DO Work Phone: [facility] Comment on above: Anticoagulation Start: 08-21-2023 End: 08-21-2023 [facility] Work Phone: [facility] Comment on above: Malignant neoplasm o f both ovaries (HCC) (Primary Dx); Other 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, unspecified chronicity (HCC); Malignant neoplasm of bilateral ovaries (HCC) Start: 08-16-2023 End: 08-16-2023 Nursing evaluation of patient and report Mi Nurse Work Phone: [facility] Comment on above: Vitamin B12 deficien cy (Primary Dx) Start: 08-16-2023 End: 08-16-2023 Anticoagulant drug monitoring [facility] Work Phone: [facility] [place] Comment on above: Chronic anticoagulat ion (Primary Dx); Phlebitis Start: 07-31-2023 End: 07-31-2023 [facility] Work [facility] [place] Comment on above: Chronic anticoagulat ion (Primary Dx); Phlebitis Start: 07-24-2023 Anticoagulant drug monitoring Melchor Alvaradoon DO Work Phone: [facility] Comment on above: Chronic anticoagulat ion (Primary Dx); Phlebitis Start: 07-24-2023 Refill Ashley lorenz PA-C Work Phone: [facility] Comment on above: Refill Request Start: 07-24-2023 Telephone encounter Melchor white DO Work Phone: [facility] Comment on above: Anticoagulation Start: 07-24-2023 End: 07-24-2023 ambulatory [facility] Work Phone: Hematology/Oncology Comment on above: Malignant neoplasm o f both ovaries (HCC) (Primary Dx); care home (current) use of anticoagulants; Other 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, unspecified chronicity (HCC); Malignant neoplasm of bilateral ovaries (HCC) Start: 07-17-2023 End: 07-17-2023 Patient encounter procedure Melchor [place] DO Work Phone: [facility] Comment on above: Hypothyroidism, acqu ired (Primary Dx); Malignant neoplasm of bilateral ovaries (HCC); Chronic midline low 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; DDD (degenerative disc disease), lumbar; Vitamin B12 deficiency; Chronic anticoagulation; 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 Start: 06-21-2023 End: 06-21-2023 Nursing evaluation of patient and report Mi Nurse Work Phone: [facility] Comment on above: Vitamin B12 deficien cy (Primary Dx) Start: 06-19-2023 Telephone encounter Melchor white DO Work Phone: [facility] Comment on above: Anticoagulation Start: 06-19-2023 End: 06-19-2023 ambulatory [facility] Work Phone: Hematology/Oncology Comment on above: Malignant neoplasm o f both ovaries (HCC) (Primary Dx); Other 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, unspecified chronicity (HCC); Malignant neoplasm of bilateral ovaries (HCC) Start: 06-18-2023 Telephone encounter Roberta barillas 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 [employer] Work Phone: [facility] Comment on above: Orders Start: 06-14-2023 Telephone encounter Osvaldo kuhn MD Work Phone: Hematology/Oncology Comment on above: Orders; Anticoagulat ion Start: 06-14-2023 End: 06-14-2023 ambulatory [facility] Work Phone: Hematology/Oncology Comment on above: Malignant neoplasm o f both ovaries (HCC) (Primary Dx) Start: 06-13-2023 End: 06-13-2023 ambulatory [facility] Work Phone: Hematology/Oncology Comment on above: Other pulmonary embo lism 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, unspecified chronicity (HCC) Start: 05-31-2023 End: 05-31-2023 [facility] Work [facility] [place] Comment on above: Chronic anticoagulat ion (Primary Dx); Phlebitis Start: 05-23-2023 End: 05-23-2023 Nursing evaluation of patient and report Mi Nurse Work Phone: [facility] [place] Comment on above: Vitamin B12 deficien cy (Primary Dx) Start: 05-17-2023 Telephone encounter Melchor white DO Work Phone: [facility] [place] Comment on above: Results Start: 05-16-2023 Telephone encounter Melchor white DO Work Phone: [facility] [place] Comment on above: Anticoagulation Start: 05-16-2023 End: 05-16-2023 ambulatory [facility] Work Phone: Hematology/Oncology Comment on above: Malignant neoplasm o f both ovaries (HCC); Other 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, unspecified chronicity (HCC) Start: 05-08-2023 End: 05-08-2023 [facility] Work [facility] [place] Comment on above: Chronic anticoagulat ion (Primary Dx); Phlebitis Start: 05-01-2023 End: 05-01-2023 Anticoagulant drug monitoring [facility] Work Phone: [facility] [place] Comment on above: Chronic anticoagulat ion (Primary Dx); Phlebitis Start: 04-24-2023 End: 04-24-2023 Anticoagulant drug monitoring [facility] Work Phone: [facility] [place] Comment on above: Chronic anticoagulat ion (Primary Dx); Phlebitis Start: 04-24-2023 End: 04-24-2023 Nursing evaluation of patient and report Mi Nurse Work Phone: [facility] Comment on above: Vitamin B12 deficien cy (Primary Dx) Start: 04-18-2023 Telephone encounter Melchor white DO Work Phone: [facility] Comment on above: Anticoagulation Start: 04-18-2023 End: 04-18-2023 ambulatory [facility] Work Phone: Hematology/Oncology Comment on above: Malignant neoplasm o f both ovaries (HCC); Other 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, unspecified chronicity (HCC) Start: 04-17-2023 End: 04-17-2023 Patient encounter procedure Melchor [place] DO Work Phone: [facility] Comment on above: Urinary incontinence , unspecified type (Primary Dx); Cancer of peritoneum (HCC); Other 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, unspecified chronicity (HCC); 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); Stage 3a chronic kidney disease (HCC); Chronic anticoagulation; Vitamin B12 deficiency; Hypothyroidism, acquired; Essential hypertension, benign Start: 01-30-2023 End: 01-30-2023 Anticoagulant drug monitoring [facility] Work Phone: [facility] [place] Comment on above: Chronic anticoagulat ion (Primary Dx); Phlebitis Start: 01-30-2023 End: 01-30-2023 Nursing evaluation of patient and report Mi Nurse Work Phone: [facility] Comment on above: Vitamin B12 deficien cy (Primary Dx) Start: 01-24-2023 End: 01-24-2023 ambulatory [facility] Work Phone: Hematology/Oncology Comment on above: Other pulmonary embo lism 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, unspecified chronicity (HCC); Malignant neoplasm of both ovaries (HCC); care home (current) use of anticoagulants; Essential hypertension, benign; Hypothyroidism, acquired; Vitamin B12 deficiency; 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, 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, 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) ; Vitamin D deficiency Start: 01-09-2023 End: 01-09-2023 Patient encounter procedure Melchor Washington DO Work Phone: [facility] Comment on above: Hypothyroidism, acqu ired (Primary Dx); Skin sore; Urinary incontinence, unspecified type; Vitamin B12 deficiency; Pure hypercholesterolemia; 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, 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, on [facility] insulin [facility] (HCC) ; Essential hypertension, benign; Vitamin D deficiency; 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) ; Stage 3a chronic kidney disease (HCC) Start: 01-02-2023 End: 01-02-2023 Anticoagulant drug monitoring [facility] Work Phone: [facility] Comment on above: Chronic anticoagulat ion (Primary Dx); Phlebitis Start: 01-02-2023 End: 01-02-2023 Nursing evaluation of patient and report Ks Nurse Work Phone: [facility] Comment on above: Vitamin B12 deficien cy (Primary Dx); Encounter for immunization Start: 12-27-2022 End: 12-27-2022 ambulatory [facility] Work Phone: Hematology/Oncology Comment on above: Malignant neoplasm o f both ovaries (HCC) (Primary Dx) Start: 12-25-2022 Refill Melchor Bunch nargis DO Work Phone: [facility] Comment on above: Refill Request Start: 12-19-2022 End: 12-19-2022 Anticoagulant drug monitoring [facility] Work Phone: [facility] Comment on above: Chronic anticoagulat ion (Primary Dx); Phlebitis Start: 12-05-2022 End: 12-05-2022 Nursing evaluation of patient and report Ks Nurse Work Phone: [facility] Comment on above: Vitamin B12 deficien cy (Primary Dx); Need for influenza vaccination Start: 11-29-2022 End: 11-29-2022 ambulatory [facility] Work Phone: Hematology/Oncology Comment on above: Malignant neoplasm o f both ovaries (HCC) (Primary Dx); Other 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, unspecified chronicity (HCC) Start: 11-16-2022 Refill Melchor barillas DO Work Phone: [facility] Comment on above: Refill Request Start: 11-07-2022 Telephone encounter Melchor Cha white DO Work Phone: [facility] Comment on above: Letter Start: 11-07-2022 End: 11-07-2022 [facility] Work Phone: [facility] Comment on above: Chronic anticoagulat ion (Primary Dx); Phlebitis Start: 11-07-2022 End: 11-07-2022 Nursing evaluation of patient and report Mi Nurse Work Phone: [facility] Comment on above: Vitamin B12 deficien cy (Primary Dx) Start: 11-01-2022 End: 11-01-2022 ambulatory [facility] Work Phone: Hematology/Oncology Comment on above: Malignant neoplasm o f both ovaries (HCC) Start: 10-24-2022 End: 10-24-2022 [facility] Work Phone: [facility] Comment on above: Chronic anticoagulat ion (Primary Dx); Phlebitis Start: 10-17-2022 End: 10-17-2022 Anticoagulant drug monitoring [facility] Work Phone: [facility] Comment on above: Chronic anticoagulat ion (Primary Dx); Phlebitis Start: 10-10-2022 End: 10-10-2022 Nursing evaluation of patient and report Mi Nurse Work Phone: [facility] Comment on above: Vitamin B12 deficien cy (Primary Dx) Start: 09-26-2022 End: 09-26-2022 Anticoagulant drug monitoring [facility] Work Phone: [facility] Comment on above: Chronic anticoagulat ion (Primary Dx); Phlebitis Start: 09-19-2022 End: 09-19-2022 Anticoagulant drug monitoring [facility] Work Phone: [facility] Comment on above: Chronic anticoagulat ion (Primary Dx); Phlebitis Start: 09-11-2022 End: 09-11-2022 Nursing evaluation of patient and report Mi Nurse Work Phone: [facility] Comment on above: Vitamin B12 deficien cy (Primary Dx) Start: 08-15-2022 Telephone encounter Melchor white DO Work Phone: [facility] Comment on above: Medication Question Start: 08-15-2022 End: 08-15-2022 Nursing evaluation of patient and report Mi Nurse Work Phone: [facility] Comment on above: Vitamin B12 deficien cy (Primary Dx); Need for vaccination Start: 08-14-2022 ambulatory Melchor Poolflo son DO Work Phone: [facility] Comment on above: Still have no ca 225 results from august 09 Start: 08-09-2022 Telephone encounter Melchor white DO Work Phone: [facility] Comment on above: Anticoagulation Start: 08-09-2022 End: 08-09-2022 ambulatory [facility] Work Phone: [facility] Start: 08-09-2022 End: 08-09-2022 Anticoagulant drug monitoring [facility] Work Phone: Hematology/Oncology Comment on above: Chronic anticoagulat ion; Malignant neoplasm of both ovaries (HCC); 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) Start: 08-08-2022 Telephone encounter Melchor white DO Work Phone: [facility] Comment on above: Lab Orders Start: 07-14-2022 ambulatory Melchor Bunch son DO Work Phone: [facility] Comment on above: lab results Start: 07-14-2022 E-mail encounter fro m caregiver Melchor Washington DO Work Phone: [facility] Start: 07-12-2022 End: 07-12-2022 ambulatory [facility] Work Phone: Hematology/Oncology Comment on above: Malignant neoplasm o f both ovaries (HCC) (Primary Dx); Hypothyroidism, acquired; Vitamin B12 deficiency Start: 07-10-2022 End: 07-10-2022 Nursing evaluation of patient and report Mi Nurse Work Phone: [facility] Comment on above: Vitamin B12 deficien cy (Primary Dx) Start: 07-04-2022 ambulatory Melchor Poolflo barillas DO Work Phone: [facility] Start: 07-03-2022 End: 07-03-2022 Patient encounter procedure Melchor Washington DO Work Phone: [facility] Comment on above: Dizziness (Primary D x); Chronic anticoagulation; Malignant neoplasm of both ovaries (HCC); Vitamin B12 deficiency; Hypothyroidism, acquired; Fatigue, unspecified type; Essential hypertension, benign; Other 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, unspecified chronicity (HCC); Cancer of peritoneum (HCC) Start: 06-14-2022 Telephone encounter Melchor white DO Work Phone: Hematology/Oncology Comment on above: Patient Update Start: 06-14-2022 End: 06-14-2022 ambulatory [facility] Work Phone: [facility] Start: 06-14-2022 End: 06-14-2022 Anticoagulant drug monitoring [facility] Work Phone: Hematology/Oncology Comment on above: Chronic anticoagulat ion Start: 06-12-2022 End: 06-12-2022 Nursing evaluation of patient and report Mi Nurse Work Phone: [facility] Comment on above: Vitamin B12 deficien cy (Primary Dx) Start: 05-18-2022 Telephone encounter 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 APRN.LABORER [employer]YR[employer] MACHINE Work Phone: Gynecology Oncology Comment on above: Results; Follow Up Start: 05-17-2022 End: 05-17-2022 [facility] Work Phone: [facility] Comment on above: Malignant neoplasm o f both ovaries (HCC) (Primary Dx); Other 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, unspecified chronicity (HCC); Encounter for chemotherapy management Start: 05-08-2022 End: 05-08-2022 Anticoagulant drug monitoring [facility] Work Phone: [facility] Comment on above: Chronic anticoagulat ion; Phlebitis Start: 05-03-2022 Telephone encounter Melchor white DO Work Phone: [facility] Comment on above: Results Start: 04-24-2022 End: 04-24-2022 [facility] [place] Comment on above: Chronic anticoagulat ion; Phlebitis Start: 04-19-2022 End: 04-19-2022 ambulatory [facility] Work Phone: Hematology/Oncology Comment on above: Malignant neoplasm o f both ovaries (HCC); Encounter for chemotherapy management Start: 04-17-2022 Telephone encounter Melchor white DO Work Phone: [facility] Comment on above: Insurance Authorizat ion Start: 04-17-2022 End: 04-17-2022 Nursing evaluation of patient and report Mi Nurse Work Phone: [facility] Comment on above: Vitamin B12 deficien cy (Primary Dx) Start: 04-17-2022 End: 04-17-2022 [facility] Comment on above: Chronic anticoagulat ion; Phlebitis Start: 03-29-2022 Telephone encounter Melchor white DO Work Phone: [facility] Comment on above: Insurance Authorizat ion Start: 03-22-2022 End: 03-22-2022 ambulatory [facility] Work Phone: Hematology/Oncology Comment on above: Malignant neoplasm o f both ovaries (HCC) (Primary Dx); Dysuria; Vitamin B12 deficiency; 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, 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, 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); Hypothyroidism, acquired; Vitamin D deficiency Start: 03-20-2022 End: 03-20-2022 Patient encounter procedure Melchor Washington DO Work Phone: [facility] Comment on above: Hypothyroidism, acqu ired (Primary Dx); Vitamin B12 deficiency; Dysuria; Screening for colon cancer; Vitamin D deficiency; 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, 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, 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); Malignant neoplasm of both ovaries (HCC); Fatigue, unspecified type; Pure hypercholesterolemia; Essential hypertension, benign Start: 03-16-2022 End: 03-16-2022 [facility] Work [facility]: [facility] Comment on above: Chronic anticoagulat ion; Phlebitis Start: 03-02-2022 Telephone encounter Melchor white DO Work Phone: [facility] Comment on above: Orders (protime) Start: 03-02-2022 End: 03-02-2022 Anticoagulant drug monitoring [facility] Work Phone: [facility] Comment on above: Chronic anticoagulat ion; Phlebitis Start: 02-22-2022 Telephone encounter Melchor white DO Work Phone: [facility] Comment on above: Anticoagulation Start: 02-14-2022 Telephone encounter Melchor white DO Work Phone: [facility] Comment on above: Medication Issue Start: 02-14-2022 End: 02-14-2022 Nursing evaluation of patient and report Mi Nurse Work Phone: [facility] Comment on above: Vitamin B12 deficien cy (Primary Dx) Start: 02-08-2022 End: 02-08-2022 Anticoagulant drug monitoring [facility] Work Phone: [facility] Comment on above: Chronic anticoagulat ion; Phlebitis Start: 01-31-2022 Telephone encounter Melchor white DO Work Phone: [facility] Comment on above: Orders Start: 01-31-2022 End: 01-31-2022 Nursing evaluation of patient and report Mi Nurse Work Phone: [facility] Comment on above: Vitamin B12 deficien cy (Primary Dx) Start: 01-25-2022 End: 01-25-2022 Anticoagulant drug monitoring [facility] Work Phone: [facility] Comment on above: Chronic anticoagulat ion; Phlebitis Start: 01-19-2022 End: 01-19-2022 Nursing evaluation of patient and report Mi Nurse Work Phone: [facility] Comment on above: Vitamin B12 deficien cy (Primary Dx) Start: 01-18-2022 Telephone encounter Melchor white DO Work Phone: [facility] Comment on above: Anticoagulation Start: 01-18-2022 End: 01-18-2022 ambulatory [facility] Work Phone: [facility] Start: 01-18-2022 End: 01-18-2022 Anticoagulant drug monitoring [facility] Work Phone: Hematology/Oncology Comment on above: Malignant neoplasm o f both ovaries (HCC) (Primary Dx); Encounter for chemotherapy management; Chronic anticoagulation Start: 01-16-2022 End: 01-16-[address] Melchor Washington Work Phone: [facility] Start: 01-12-2022 End: 01-12-2022 Nursing evaluation of patient and report Mi Nurse Work Phone: [facility] Comment on above: Vitamin B12 deficien cy (Primary Dx) Start: 01-09-2022 Refill Melchor barillas DO Work Phone: [facility] Comment on above: Refill Request Start: 01-05-2022 End: 01-05-2022 Nursing evaluation of patient and report Mi Nurse Work Phone: [facility] Comment on above: Vitamin B12 deficien cy (Primary Dx) Start: 01-05-2022 End: 01-05-2022 Anticoagulant drug monitoring [facility] Work Phone: [facility] Comment on above: Chronic anticoagulat ion; Phlebitis Start: 01-02-2022 Telephone encounter Melchor white DO Work Phone: [facility] Comment on above: Results Start: 12-31-2021 ambulatory Melchor barillas DO Work Phone: [facility] Comment on above: Ca125 Start: 12-29-2021 End: 12-29-2021 Anticoagulant drug monitoring [facility] Work Phone: [facility] Comment on above: Chronic anticoagulat ion; Phlebitis Start: 12-27-2021 End: 12-27-2021 ambulatory [facility] Work Phone: Hematology/Oncology Comment on above: Diabetes mellitus ty pe 1, 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, 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); Hypothyroidism, acquired; Malignant neoplasm of both ovaries (HCC) Start: 12-27-2021 End: 12-27-2021 Nursing evaluation of patient and report Mi Nurse Work Phone: [facility] Comment on above: Vitamin B12 deficien cy (Primary Dx) Start: 12-26-2021 Telephone encounter Melchor white DO Work Phone: [facility] Comment on above: Results Start: 12-22-2021 Telephone encounter Melchor white DO Work Phone: [facility] Comment on above: Patient Request Start: 12-21-2021 Tele[facility] on [facility]: [facility] Start: 12-21-2021 End: 12-21-2021 ambulatory [facility] Start: 12-21-2021 End: 12-21-2021 Anticoagulant drug monitoring [facility] Work Phone: Hematology/Oncology Comment on above: Malignant neoplasm o f both ovaries (HCC); Encounter for chemotherapy management; Chronic anticoagulation; Vitamin B12 deficiency; Vitamin D deficiency Start: 12-14-2021 End: 12-14-2021 Patient encounter procedure Melchor Washington DO Work Phone: [facility] Comment on above: Hypothyroidism, acqu ired (Primary Dx); Need for COVID-19 vaccine; Vitamin B12 deficiency; Vitamin D deficiency; Chronic anticoagulation; 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, 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, on [facility] insulin pump (HCC); Fatigue, unspecified type; Malignant neoplasm of both ovaries (HCC) Start: 11-23-2021 Telephone encounter Melchor white DO Work Phone: [facility] Comment on above: Anticoagulation Start: 11-23-2021 End: 11-23-2021 ambulatory [facility] Work Phone: [facility] Start: 11-23-2021 End: 11-23-2021 Anticoagulant drug monitoring [facility] Work Phone: Hematology/Oncology Comment on above: Essential hypertensi on, benign (Primary Dx); Malignant neoplasm of both ovaries (HCC); Encounter for chemotherapy management; Chronic anticoagulation Start: 10-31-2021 ambulatory Melchor barillas DO Work Phone: [facility] Comment on above: Ca 125 Start: 10-31-2021 End: 10-31-2021 Anticoagulant drug monitoring [facility] Work Phone: [facility] Comment on above: Chronic anticoagulat ion; Phlebitis Start: 10-25-2021 Telephone encounter Melchor white DO Work Phone: [facility] Comment on above: Orders Start: 10-25-2021 End: 10-25-2021 ambulatory [facility] Work Phone: Hematology/Oncology Comment on above: Essential hypertensi on, benign; Malignant neoplasm of both ovaries (HCC); Hypothyroidism, acquired; Vitamin D deficiency; 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, 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, 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); Vitamin B12 deficiency Start: 10-19-2021 End: 10-19-2021 Patient encounter procedure Melchor Washington DO Work Phone: [facility] Comment on above: Situational insomnia (Primary Dx); Vitamin B12 deficiency; Vitamin D deficiency; 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, 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, on [facility] insulin [facility] (HCC); Pure hypercholesterolemia; Hypothyroidism, acquired; Essential hypertension, benign; Malignant neoplasm of both ovaries (HCC) Start: 10-17-2021 End: 10-17-2021 [facility] Work [facility]: [facility] Comment on above: Chronic anticoagulat ion; Phlebitis Start: 09-22-2021 Telephone encounter Allie Amado RN Gynecology Oncology Comment on above: 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 Start: 09-20-2021 Refill Melchor Eubanks Joelflo barillas DO Work Phone: [facility] Comment on above: Refill Request Start: 09-19-2021 End: 09-19-2021 [facility] Work [facility] Comment on above: Chronic anticoagulat ion; Phlebitis Refill Request Start: 09-15-2021 End: 09-15-2021 ambulatory Esedie Ritter TEENA.LABORER [employer] MACHINE Work Phone: Gynecology Oncology Comment on above: Ovarian cancer, bila teral (HCC) (Primary Dx) Start: 09-15-2021 End: 09-15-2021 Telemedicine consultation with patient Es Ritter 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 SYRUP MACHINE Work Phone: [facility] Start: 09-09-2021 End: 09-09-2021 Subsequent hospital visit by physician [facility] ([facility]) Work Phone: Cat Scan Comment on above: Lung nodules [R91.8] Start: 09-02-2021 End: 09-02-2021 [facility]: [facility] Start: 09-02-2021 End: 09-02-2021 Anticoagulant drug monitoring [facility] Work Phone: Hematology/Oncology Comment on above: Chronic anticoagulat ion Start: 08-24-2021 End: 08-24-[address] [facility] Start: 08-24-2021 End: 08-24-2021 Nutrition therapy Ashely Hartman RD Nutrition Therapy Comment on above: Nutrition Counseling Start: 08-24-2021 End: 08-24-2021 ambulatory Ramírez Patel MD Work Phone: Gynecology Oncology Comment on above: Ovarian cancer, bila teral (HCC) (Primary Dx); Elevated CA-125 Encounter for antine oplastic chemotherapy (Primary Dx); Ovarian cancer, bilateral (HCC); Ovarian cancer, unspecified laterality (HCC); Cancer of peritoneum (HCC) Start: 08-24-2021 End: 08-24-2021 Patient encounter procedure Ramírez Patel Jr., MD Work Phone: [facility] Start: 08-22-2021 Telephone encounter Melchor white DO Work Phone: [facility] Comment on above: INR lab request Anticoagulation Start: 08-22-2021 End: 08-22-2021 ambulatory [facility] Work Phone: Hematology/Oncology Comment on above: Malignant neoplasm o f both ovaries (HCC) (Primary Dx); Other 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, unspecified chronicity (HCC); Encounter for chemotherapy management Start: 08-09-2021 Telephone encounter Melchor white DO Work Phone: [facility] Comment on above: Results Start: 08-05-2021 End: 08-05-2021 ambulatory [facility] Work Phone: [facility] Start: 08-05-2021 End: 08-05-2021 Anticoagulant drug monitoring [facility] Work Phone: Hematology/Oncology Comment on above: Malignant neoplasm o f both ovaries (HCC) (Primary Dx); Chronic anticoagulation; Hypothyroidism, acquired; Vitamin D deficiency; Fatigue, unspecified type Start: 07-28-2021 End: 07-28-2021 Anticoagulant drug monitoring [facility] Work Phone: [facility] Comment on above: Chronic anticoagulat ion; Phlebitis Start: 07-26-2021 End: 07-26-2021 Follow-up encounter Gricelda Villarreal APRN.LABORER [employer] MACHINE Work Phone: Gynecology Oncology Comment on above: Cancer of peritoneum (HCC) (Primary Dx); Chemotherapy follow-up examination; Elevated CA-125 Start: 07-26-2021 End: 07-26-2021 Patient encounter procedure Gricelda Villarreal APRN.LABORER [employer]YRUP MACHINE Work Phone: [facility] Start: 07-26-2021 End: 07-26-2021 ambulatory Chair 5 Lute Packer Or Applier Work Phone: Gynecology Oncology Comment on above: Encounter for chemot herapy management (Primary Dx); Ovarian cancer, bilateral (HCC); Ovarian cancer, unspecified laterality (HCC); Cancer of peritoneum (HCC) Start: 07-25-2021 End: 07-25-2021 ambulatory [facility] Work Phone: Hematology/Oncology Comment on above: Malignant neoplasm o f both ovaries (HCC); Encounter for chemotherapy management Start: 07-21-2021 End: 07-21-2021 Anticoagulant drug monitoring [facility] Work Phone: [facility] Comment on above: Chronic anticoagulat ion; Phlebitis Start: 07-14-2021 End: 07-14-2021 Anticoagulant drug monitoring [facility] Work Phone: [facility] Comment on above: Chronic anticoagulat ion; Phlebitis Start: 07-11-2021 Telephone encounter Melchor white DO Work Phone: [facility] Comment on above: Opened In Error Start: 07-08-2021 Telephone encounter Roberta epps APRN.LABORER [employer] MACHINE Work Phone: [facility] Comment on above: Results Start: 07-08-2021 End: 07-08-2021 ambulatory [facility] Work Phone: [facility] Start: 07-08-2021 End: 07-08-2021 Anticoagulant drug monitoring [facility] Work Phone: Hematology/Oncology Comment on above: Malignant neoplasm o f both ovaries (HCC) (Primary Dx); Encounter for chemotherapy management; Chronic anticoagulation Start: 06-29-2021 Telephone encounter Ramírez emery MD Work Phone: [facility] Comment on above: FMLA Paperwork Anticoagulation Start: 06-28-2021 End: 06-28-2021 ambulatory Chair 3 Lute Packer Or Applier Work Phone: Gynecology Oncology Comment on above: Ovarian cancer, bila teral (HCC) (Primary Dx); Ovarian cancer, unspecified laterality (HCC); Cancer of peritoneum (HCC) Start: 06-27-2021 End: 06-27-2021 ambulatory [facility] Work Phone: Hematology/Oncology Comment on above: Malignant neoplasm o f both ovaries (HCC) (Primary Dx); Other 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, unspecified chronicity (HCC); Encounter for chemotherapy management Start: 06-23-2021 ambulatory Halle porter 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 SYRUP MACHINE Work Phone: Gynecology Oncology Comment on above: Ovarian cancer, bila teral (HCC) (Primary Dx) Start: 06-22-2021 Telephone encounter Allie Amado RN Gynecology Oncology Comment on above: Returning Patient's Call Start: 06-21-2021 End: 06-21-2021 ambulatory Chair 7 Lute Packer Or Applier Work Phone: Gynecology Oncology Comment on above: Encounter for chemot herapy management (Primary Dx); Ovarian cancer, bilateral (HCC); Ovarian cancer, unspecified laterality (HCC); Cancer of peritoneum (HCC) Start: 06-20-2021 End: 06-20-2021 ambulatory Lab/[facility] Work Phone: Hematology/Oncology Comment on above: Malignant neoplasm o f both ovaries (HCC); Encounter for chemotherapy management Start: 06-14-2021 End: 06-14-2021 Anticoagulant drug monitoring [facility] Work Phone: [facility] [place] Comment on above: Chronic anticoagulat ion; Phlebitis Start: 06-10-2021 Telephone encounter Allie Amado RN Gynecology Oncology Comment on above: 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 Start: 06-09-2021 Telephone encounter Allie Amado RN Gynecology Oncology Comment on above: 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 Start: 06-08-2021 End: 06-08-2021 Orders Only Allie Amado RN Gynecology Oncology Comment on above: Ovarian cancer, bila teral (HCC) (Primary Dx) Encounter for chemot herapy management (Primary Dx); Ovarian cancer, bilateral (HCC) Start: 05-31-2021 End: 05-31-2021 [facility] Work [facility]: [facility] [place] Comment on above: Chronic anticoagulat ion; Phlebitis Procedures Date Procedure Procedure Detail Performing Clinician Start: 10-07-2024 Prothrombin time Melchor Cha Felix DO Work Phone: Start: 09-02-2024 Comprehensive metabo lic panel Melchor Eubanks Washington DO Work Phone: Start: 07-01-2024 Comprehensive metabo lic panel Melchor Poolrison DO Work Phone: Start: 06-03-2024 Comprehensive metabo lic panel Melchor Poolrison DO Work Phone: Start: 04-08-2024 Comprehensive metabo lic panel Melchor Eubanks Washington DO Work Phone: Start: 03-11-2024 Blood count complete auto&auto difrntl wbc Melchor Poolrison DO Work Phone: Start: 02-12-2024 Urnls dip stick/tabl et reagent auto microscopy Melchor Washington DO Work Phone: Start: 02-12-2024 Comprehensive metabo lic panel Melchor Eubanks Washington DO Work Phone: Start: 01-29-2024 Prothrombin time [facility] Pr ovider Start: 01-15-2024 Comprehensive metabo lic panel Melchor Eubanks Washington DO Work Phone: Start: 01-15-2024 Urnls dip stick/tabl et reagent auto microscopy Rudy Ross MD Work Phone: Start: 01-02-2024 PFIZER-BIONTECH COVI D-19 VACCINE AGE 12+ YR (COMIRNATY) Melchor Eubanks Washington DO Work Phone: Start: 12-11-2023 Comprehensive metabo lic panel Melchor Eubanks Washington DO Work Phone: Start: 11-13-2023 Comprehensive metabo lic panel Melchor Eubanks Washington DO Work Phone: Start: 10-16-2023 Comprehensive metabo lic panel Melchor Eubanks Washington DO Work Phone: Start: 09-18-2023 Prothrombin time [facility]cf Pr ovider Start: 09-18-2023 Comprehensive metabo lic panel Melchor Eubanks Washington DO Work Phone: Start: 08-21-2023 Comprehensive metabo lic panel Melchor Eubanks Washington DO Work Phone: Start: 08-21-2023 Immunoassay tumor an tigen quantitative ca 125 Melchor Eubanks Washington DO Work Phone: Start: 08-16-2023 Prothrombin time [facility] Pr ovider Start: 07-24-2023 Comprehensive metabo lic panel Melchor Eubanks Washington DO Work Phone: Start: 07-17-2023 Adult depression scr eening assessment Mi Nurse Work Phone: Start: 06-19-2023 Prothrombin time Melchor Eubanks Washington DO Work Phone: Start: 05-16-2023 Comprehensive metabo lic panel Melchor Eubanks Washington DO Work Phone: Start: 05-16-2023 Immunoassay tumor an tigen quantitative ca 125 Melchor Eubanks Washington DO Work Phone: Start: 04-18-2023 Comprehensive metabo lic panel Melchor Eubanks Washington DO Work Phone: Start: 01-24-2023 Blood count complete auto&auto difrntl wbc Melchor Poolrison DO Work Phone: Start: 01-02-2023 PFIZER-BIONTECH COVI D-19 VACCINE ( SEASON) AGE 12+ YR Melchor Eubanks Washington DO Work Phone: Start: 12-27-2022 Comprehensive metabo lic panel Melchor Eubanks Washington DO Work Phone: Start: 12-05-2022 INFLUENZA VACCINE, P RSV FREE, AGE 65+ YR, HIGH DOSE, QUADRIVALENT (FLUZONE HIGH-DOSE) Melchor Eubanks Washington DO Work Phone: Start: 11-29-2022 Comprehensive metabo lic panel Melchor Eubanks Washington DO Work Phone: Start: 11-01-2022 Comprehensive metabo lic panel Melchor Eubanks Washington DO Work Phone: Start: 08-15-2022 PFIZER-BIONTECH COVI D-19 BIVALENT VACCINE, AGE 12+ YR Melchor Eubanks Washington DO Work Phone: Start: 08-09-2022 Comprehensive metabo lic panel Melchor Eubanks Washington DO Work Phone: Start: 07-12-2022 Comprehensive metabo lic panel Melchor Eubanks Washington DO Work Phone: Start: 06-14-2022 Prothrombin time Melchor Eubanks Washington DO Work Phone: Start: 05-17-2022 End: 05-17-2022 Blood count complete auto&auto difrntl wbc 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 APRN.LABORER SYRUP MACHINE Work Phone: Start: 04-24-2022 Prothrombin time [facility] Pr ovider Start: 04-19-2022 Blood count complete auto&auto difrntl wbc 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 APRN.LABORER SYRUP MACHINE Work Phone: Start: 03-22-2022 Blood count complete auto&auto difrntl wbc Melchor Alvaradoon DO Work Phone: Start: 12-27-2021 Blood count complete auto&auto difrntl wbc Melchor Alvaradoon DO Work Phone: Start: 12-21-2021 Blood count complete auto&auto difrntl wbc Halle Edwards Neeru 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 SYRUP MACHINE Work Phone: Start: 12-14-2021 [email or web address] COVI D-19 BIVALENT BOOSTER VACCINE, AGE 12+ YR Melchor Washington DO Work Phone: Start: 11-23-2021 Blood count complete auto&auto difrntl wbc Halle Edwards Neeru 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 SYRUP MACHINE Work Phone: Start: 10-25-2021 Blood count complete auto&auto difrntl wbc Melchor Washington DO Work Phone: Start: 09-09-2021 Ct abdomen & pelvis w/o contrast material 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 SYRUP MACHINE Work Phone: Start: 09-09-2021 Ct thorax w/o contra st material 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 SYRUP MACHINE Work Phone: Start: 08-22-2021 Blood count complete auto&auto difrntl wbc 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 SYRUP MACHINE Work Phone: Start: 08-05-2021 Prothrombin time Roberta Zurawick 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 SYRUP MACHINE Work Phone: Start: 07-25-2021 Blood count complete auto&auto difrntl wbc 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 SYRUP MACHINE Work Phone: Start: 07-08-2021 Urnls dip stick/tabl et rgnt auto w/o microscopy [facility] Provider Start: 07-08-2021 Blood count complete auto&auto difrntl wbc 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 SYRUP MACHINE Work Phone: Start: 06-27-2021 Blood count complete auto&auto difrntl wbc 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 SYRUP MACHINE Work Phone: Start: 06-20-2021 Blood count complete auto&auto difrntl wbc 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 SYRUP MACHINE Work Phone: Start: 06-08-2021 Urnls dip stick/tabl et rgnt auto w/o microscopy Ramírez Patel MD Work Phone: Start: 07-04-2016 End: 07-05-2016 Hemoglobin glycosylated a1c Lucrecia urbano OPTICAL SYSTEMS ENGINEER Work Phone: Start: 07-04-2016 End: 07-04-2016 Dietary management education, guidance, and counseling Ambika Godoy LPN Start: 07-04-2016 End: 07-05-2016 Hemoglobin glycosylated a1c Lucrecia Latham sundeep OPTICAL SYSTEMS ENGINEER Work Phone: Start: 06-28-2016 End: 06-30-2016 INR in Platelet poor plasma by Coagulation assay Lucrecia Lathamsundeep OPTICAL SYSTEMS ENGINEER Work Phone: Start: 06-28-2016 End: 06-30-2016 INR in Platelet poor plasma by Coagulation assay Lucrecia Longoria OPTICAL SYSTEMS ENGINEER Work Phone: Start: 05-23-2016 End: 06-30-2016 *CMP Complete Metabolic Panel Lucrecia Lathamsundeep VILLAR Work Phone: Start: 05-23-2016 End: 06-30-2016 *Microalbumin, Creatine Ratio, rand urine Lucrecia Lathamsundeep OPTICAL SYSTEMS ENGINEER Work Phone: Start: 05-23-2016 End: 06-30-2016 Hemoglobin A1c/Hemoglobin.total in Blood Lucrecia Lathamsundeep OPTICAL SYSTEMS ENGINEER Work Phone: Start: 05-23-2016 End: 06-30-2016 Lipid 1996 panel - Serum or Plasma Lucrecia Lathamsundeep OPTICAL SYSTEMS ENGINEER Work Phone: Start: 05-23-2016 End: 06-30-2016 Thyrotropin [Units/volume] in Serum or Plasma Lucrecia Lathamsundeep VILLAR Work Phone: Start: 05-23-2016 End: 06-30-2016 *CMP Complete Metabolic Panel Lucrecia Lathamsundeep OPTICAL SYSTEMS ENGINEER Work Phone: Start: 05-23-2016 End: 06-30-2016 *Microalbumin, Creatine Ratio, rand urine Lucrecia Lathamsundeep OPTICAL SYSTEMS ENGINEER Work Phone: Start: 05-23-2016 End: 06-30-2016 Hemoglobin A1c/Hemoglobin.total in Blood Lucrecia Lathamsundeep OPTICAL SYSTEMS ENGINEER Work Phone: Start: 05-23-2016 End: 06-30-2016 Lipid 1996 panel - Serum or Plasma Lucrecia Lathamsundeep OPTICAL SYSTEMS ENGINEER Work Phone: Start: 05-23-2016 End: 06-30-2016 Thyrotropin [Units/volume] in Serum or Plasma Lucrecia Meza Von OPTICAL SYSTEMS ENGINEER Work Phone: Plan of Treatment Date Care Activity Detail Author Start: 08-05-2025 Diabetic foot examination Diabetic Foot Exam [facility] Start: 05-20-2025 Glaucoma screening Dilated Retinal Exam [facility] Start: 12-04-2024 End: 12-04-2024 Nursing evaluation of patient and report 12/04/2024 10:30 AM EDT Nurse Visit [facility] [place] [address] [place] [address] Nurse, Марина [address] [place] [address] B-12 injection Family Handy Burns Comment on above: B-12 injection Start: 11-17-2024 End: 11-17-2024 Patient encounter procedure 11/17/2024 10:40 AM EDT Office Visit Family [facility] [address] [place] [address] Melchor Washington DO [address] [place] [address] 3 month follow up Family Handy Burns Comment on above: 3 month follow up Start: 11-10-2024 Influenza vaccination [facility] Start: 11-06-2024 End: 11-06-2024 Nursing evaluation of patient and report 11/06/2024 10:30 AM EDT Nurse Visit [facility] [place] [address] [place] [address] Nurse, [place] [address] [place], [place] [address] B-12 injection Family [facility] [place] Comment on above: B-12 injection Start: 11-05-2024 End: 11-05-2024 ambulatory 11/05/2024 1:00 PM EDT Visit (SP) Office Gynecology Oncology [address] [place] [address] Ramírez Patel Jr., MD [address] [facility] [place] [address] CHECK UP / CANCER Gynecology Oncology Comment on above: CHECK UP / CANCER Start: 11-04-2024 End: 11-04-2024 ambulatory 11/04/2024 1:30 PM EDT Infusion Center Hematology/Oncology [address] [place] [address] Wstr, [facility] [address] [place] [address] [facility] ([facility]) Hematology/Oncology Comment on above: [facility] ([facility]) Start: 10-28-2024 End: 10-28-2024 Patient encounter procedure 10/28/2024 9:40 AM EDT Office Visit [facility] [place] [address] [place] [address] Kapil Guillen APRN.LABORER SYRUP MACHINE [address] [place] [address] results follow up [facility] [place] Comment on above: results follow up Start: 10-13-2024 End: 10-13-2024 Anticoagulant drug monitoring 10/13/2024 10:15 AM EDT Anticoagulation Visit [facility] [place] [address] [place] [address] Wstr, [facility] [place] [address] [place] [address] INR [facility] [place] Comment on above: INR Start: 10-10-2024 End: 01-09-2025 Comprehensive metabolic 2000 panel - Serum or Plasma COMPREHENSIVE METABOLIC PANEL Lab Routine Generalized abdominal pain Bowel habit changes Cancer of peritoneum (HCC) Malignant neoplasm of both ovaries (HCC) Expected: 10/10/2024, Expires: 01/09/2025 [facility] Comment on above: Expected: 10/10/2024, Expires: Start: 10-10-2024 End: 10-10-2024 Patient encounter procedure 10/10/2024 9:40 AM EDT Office Visit [facility] [place] [address] [facility] [place] [address] Krystal Anderson PA-C [address] [place] [address] Increasing problems with diarrhea; stomach discomfort [facility] Comment on above: Increasing problems with diarrhea; stoma ch discomfort Start: 10-09-2024 End: 10-09-2024 Nursing evaluation of patient and report 10/09/2024 10:30 AM EDT Nurse Visit [facility] [place] [address] [facility] [place] [address] Nurse, Марина [address] [place] [address] B-12 injection [facility] Comment on above: B-12 injection Start: 10-07-2024 End: 10-07-2024 ambulatory 10/07/2024 1:30 PM EDT Infusion Center Hematology/Oncology [address] [place] [address] Wstr, [facility] [address] [place] [address] [facility] ([facility]) Hematology/Oncology Comment on above: [facility] ([facility]) Start: 09-11-2024 End: 09-11-2024 Nursing evaluation of patient and report 09/11/2024 10:30 AM EDT Nurse Visit [facility] [place] [address] [facility] [place] [address] Nurse, Марина [address] [place] [address] B-12 injection [facility] Comment on above: B-12 injection Start: 09-02-2024 End: 12-02-2024 Cancer Ag 125 [Units/volume] in Serum or Plasma [facility] Work Phone: Comment on above: Expected: 09/02/2024, Expires: Start: 09-02-2024 End: 09-02-2024 ambulatory 09/02/2024 1:45 PM EDT Infusion Center Hematology/Oncology [address] [place] [address] Wstr, [facility] [address] [place] [address] [facility] ([facility]) Hematology/Oncology Comment on above: [facility] ([facility]) Start: 08-19-2024 End: 08-19-2024 Anticoagulant drug monitoring 08/19/2024 10:15 AM EDT Anticoagulation Visit [facility] [place] [address] [facility] [place] [address] Wstr, [facility] [place] [address] [place] [address] inr [facility] Comment on above: inr Start: 08-14-2024 End: 08-14-2024 Nursing evaluation of patient and report 08/14/2024 10:30 AM EDT Nurse Visit [facility] [address] [facility] [place] [facility] [place] [address] Nurse, Ks [address] [facility] [place] [address] B-12 injection Family [facility] Comment on above: B-12 injection Start: 08-14-2024 End: 08-14-2024 Anticoagulant drug monitoring 08/14/2024 10:15 AM EDT Anticoagulation Visit [facility] [place] [address] [facility] [place] [place] [address] Wstr, [facility] [place] [address] [facility] [place] [address] inr [facility] [place] Comment on above: inr Start: 08-05-2024 End: 08-05-2024 Patient encounter procedure 08/05/2024 10:40 AM EDT Office Visit [facility] [place] [address] [place] [address] Melchor Washington DO [address] [place] [address] 3 mo f/u [facility] [place] Comment on above: 3 mo f/u Start: 07-29-2024 End: 07-29-2024 ambulatory 07/29/2024 1:45 PM EDT Infusion Center Hematology/Oncology [address] [place] [address] Wstr, [facility] [address] [place] [address] [facility] ([facility]) Hematology/Oncology Comment on above: [facility] ([facility]) Start: 07-17-2024 End: 07-17-2024 Nursing evaluation of patient and report 07/17/2024 10:30 AM EDT Nurse Visit [facility] [address] [place] [address] Nurse, [place]s [address] [place] [address] B-12 injection [facility] [place] Comment on above: B-12 injection Start: 07-17-2024 End: 07-17-2024 Anticoagulant drug monitoring 07/17/2024 10:15 AM EDT Anticoagulation Visit Coumadin [facility] [place] [address] [facility] [place] [address] Wstr, Anticoag [facility] [place] [address] [place] [address] inr Coumadin [facility] Comment on above: inr Start: 07-16-2024 Anxiety Screening Anxiety Screening [facility] Start: 07-16-2024 Covid-19 Vaccine () Covid-19 Vaccine () [facility] Comment on above: Postponed from 05/05/2023 (Declined at t his time) Start: 07-16-2024 Depression Screening Depression Screening [facility] Start: 07-02-2024 Covid-19 Vaccine ( season) Covid-19 Vaccine () [facility] Start: 07-01-2024 End: 09-30-2024 Cancer Ag 125 [Units/volume] in Serum or Plasma CA 125 Lab Routine Cancer of peritoneum (HCC) Expected: 07/01/2024, Expires: 09/30/2024 [facility] Work Phone: Comment on above: Expected: 07/01/2024, Expires: Start: 07-01-2024 End: 07-01-2024 ambulatory 07/01/2024 1:45 PM EDT Infusion Center Hematology/Oncology [address] [place] [address] Wstr, [facility] [address] [place] [address] [facility] ([facility]) Hematology/Oncology Comment on above: [facility] ([facility]) Start: 06-26-2024 Diabetic foot examination Diabetic Foot Exam [facility] Start: 06-19-2024 End: 06-19-2024 Nursing evaluation of patient and report 06/19/2024 10:30 AM EDT Nurse Visit [facility] [address] [facility] [place] [address] Nurse, [place]s [address] [place] [address] B-12 injection [facility] Comment on above: B-12 injection Start: 06-19-2024 End: 06-19-2024 Anticoagulant drug monitoring 06/19/2024 10:00 AM EDT Anticoagulation Visit Coumadin [facility] [place] [address] [place] [address] Wstr, [facility]ag [facility] [place] [address] [place] [address] inr [facility] Comment on above: inr Start: 06-03-2024 End: 06-03-2024 ambulatory 06/03/2024 1:45 PM EDT Infusion Center Hematology/Oncology [address] [place] [address] Wstr, [facility] [address] [place] [address] [facility] ([facility]) Hematology/Oncology Comment on above: [facility] ([facility]) Start: 05-22-2024 End: 05-22-2024 Nursing evaluation of patient and report 05/22/2024 10:30 AM EDT Nurse Visit [facility] [place] [address] [place] [address] Nurse, [place] [address] [place] [address] B-12 injection [facility] Comment on above: B-12 injection Start: 05-06-2024 End: 08-05-2024 Ascorbate [Mass/volume] in Serum or Plasma VITAMIN C Lab Routine Vitamin C deficiency Expected: 05/06/2024, Expires: 08/05/2024 [facility] Work Phone: Comment on above: Expected: 05/06/2024, Expires: Start: 05-06-2024 End: 05-06-2024 ambulatory 05/06/2024 11:00 AM EST Infusion Center Hematology/Oncology [address] [place] [address] Wstr, [facility] [address] [place] [address] [facility] ([facility]) Hematology/Oncology Comment on above: [facility]) Start: 04-22-2024 End: 07-22-2024 25-hydroxyvitamin D3 [Mass/volume] in Serum or Plasma VITAMIN D 25 HYDROXY Lab Routine Vitamin D deficiency Expected: 04/22/2024, Expires: 07/22/2024 [facility] Comment on above: Expected: 04/22/2024, Expires: Start: 04-22-2024 End: 07-22-2024 Cobalamin (Vitamin B12) [Mass/volume] in Serum or Plasma VITAMIN B12 Lab Routine Vitamin B12 deficiency Expected: 04/22/2024, Expires: 07/22/2024 [facility] Comment on above: Expected: 04/22/2024, Expires: Start: 04-22-2024 End: 04-22-2024 Patient encounter procedure Family Handy Burns Comment on above: 3 month follow up 3 month follow up; B -12 injection Start: 04-08-2024 End: 07-08-2024 Thyrotropin [Units/volume] in Serum or Plasma [facility] Work Phone: Comment on above: Expected: 04/08/2024, Expires: Start: 04-08-2024 End: 04-08-2024 ambulatory 04/08/2024 11:00 AM [facility] Infusion Center Hematology/Oncology [address] [place] [address] Wstr, [facility] [address] [place] [address] [facility] ([facility]) Hematology/Oncology Comment on above: [facility] ([facility]) Start: 03-28-2024 Glaucoma screening Dilated Retinal Exam [facility] Start: 03-25-2024 End: 03-25-2024 Nursing evaluation of patient and report 03/25/2024 12:45 PM EST Nurse Visit Family [facility] [address] [place] [address] Nurse, [place] [address] [place] [address] B-12 injection Family Handy Burns Comment on above: B-12 injection Start: 03-21-2024 Hepatitis B surface antibody level LDL Cholesterol [facility] Start: 03-13-2024 End: 03-13-2024 ambulatory 03/13/2024 11:00 AM EST Infusion Center Hematology/Oncology [address] [place] [address] Wstr, [facility] [address] [place] [address] prothrombin time. Hematology/Oncology Comment on above: prothrombin time. Start: 03-12-2024 Medicare Advantage Annual Wellness Visit Medicare Advantage Annual Wellness Visit [facility] Start: 03-11-2024 End: 03-11-2024 ambulatory 03/11/2024 11:00 AM EST Infusion Center Hematology/Oncology [address] [place] [address] Wstr, [facility] [address] [place] [address] [facility] ([facility]) Hematology/Oncology Comment on above: [facility] ([facility]) Start: 02-26-2024 End: 02-26-2024 Nursing evaluation of patient and report 02/26/2024 9:45 AM EST Nurse Visit [facility] [place] [address] [place] [address] Nurse, [place]s [address] [place] [address] B-12 injection [facility] Comment on above: B-12 injection Start: 02-26-2024 End: 02-26-2024 Anticoagulant drug monitoring 02/26/2024 9:15 AM EST Anticoagulation Visit [facility] [address] [place] [address] Wstr, [facility] [place] [address] [place] [address] inr [facility] Comment on above: inr Start: 02-20-2024 End: 05-21-2024 Bacteria identified in Urine by Culture [facility] Work Phone: Comment on above: Expected: 02/20/2024, Expires: Start: 02-15-2024 End: 05-16-2024 Ascorbate [Mass/volume] in Serum or Plasma VITAMIN C Lab Routine Bruising Expected: 02/15/2024, Expires: 05/16/2024 [facility] Work Phone: Comment on above: Expected: 02/15/2024, Expires: Start: 02-15-2024 End: 05-16-2024 CBC W Auto Differential panel - Blood COMPLETE BLOOD COUNT AND DIFFERENTIAL Lab Routine Bruising Expected: 02/15/2024, Expires: 05/16/2024 [facility] Comment on above: Expected: 02/15/2024, Expires: Start: 02-15-2024 End: 05-16-2024 Ferritin [Mass/volume] in Serum or Plasma FERRITIN Lab Routine Bruising Expected: 02/15/2024, Expires: 05/16/2024 [facility] Comment on above: Expected: 02/15/2024, Expires: Start: 02-15-2024 End: 05-16-2024 Iron and Iron binding capacity panel - Serum or Plasma IRON AND TIBC Lab Routine Bruising Expected: 02/15/2024, Expires: 05/16/2024 [facility] Comment on above: Expected: 02/15/2024, Expires: Start: 02-12-2024 End: 02-12-2024 Infusion Center 02/12/2024 11:00 AM EST Infusion Center Hematology/Oncology [address] [place] [address] Wstr, [facility] [address] [place] [address] [facility] ([facility])/ ORDERING PROV MELCHOR WASHINGTON* Hematology/Oncology Comment on above: [facility] ([facility])/ ORDERING PROV MELCHOR KAMARA* Start: 01-29-2024 End: 01-29-2024 Anticoagulant drug monitoring 01/29/2024 11:30 AM EST Anticoagulation Visit [facility] [address] [place] [address] Wstr, [facility]ag [facility] [place] [address] [place] [address] anticoagulation [facility] Comment on above: anticoagulation Start: 01-29-2024 End: 01-29-2024 Nursing evaluation of patient and report 01/29/2024 9:45 AM EST Nurse Visit [facility] [place] [address] [place] [address] Nurse, [place] [address] [place] [address] B-12 injection Family [facility] Comment on above: B-12 injection Start: 01-18-2024 End: 04-18-2024 Bacteria identified in Urine by Culture URINE CULTURE Microbiology Routine Microscopic hematuria Expected: 01/18/2024, Expires: 04/18/2024 [facility] Comment on above: Expected: 01/18/2024, Expires: Start: 01-18-2024 End: 04-18-2024 Urinalysis complete panel - Urine URINALYSIS, WITH MICROSCOPIC Lab Routine Microscopic hematuria Expected: 01/18/2024, Expires: 04/18/2024 [facility] Work Phone: Comment on above: Expected: 01/18/2024, Expires: Start: 01-18-2024 End: 01-18-2024 Patient encounter procedure 01/18/2024 10:40 AM EST Office Visit Family [facility]y [facility] [address] [place] [address] Melchor Washington DO [address] [place] [address] 3 month follow up Family Handy [facility] Comment on above: 3 month follow up Start: 01-15-2024 End: 01-15-2024 Infusion Center 01/15/2024 11:00 AM EST Infusion Center Hematology/Oncology [address] [place] [id number] [place], Lab/[facility] [address] [place] [address] [facility] (PORT)/ ORDERING PROV MELCHOR WASHINGTON* Hematology/Oncology Comment on above: [facility] (PORT)/ ORDERING PROV MELCHOR KAMARA* Start: 01-02-2024 End: 01-02-2024 Nursing evaluation of patient and report [facility] [place] Comment on above: B-12 injection B-12 injection; COVI D Start: 12-11-2023 End: 12-11-2023 Infusion Center 12/11/2023 11:00 AM EDT Infusion Center Hematology/Oncology [address] [place] [address] [place], [facility] [address] [place] [address] [facility] (PORT)/ ORDERING PROV MELCHOR WASHINGTON* Hematology/Oncology Comment on above: [facility] (PORT)/ ORDERING PROV MELCHOR ESTELA KAMARA* Start: 12-06-2023 End: 12-06-2023 Nursing evaluation of patient and report 12/06/2023 10:30 AM EDT Nurse Visit [facility] [place] [address] [place] [address] Nurse, [place] [address] [place] [address] B-12 injection, flu [facility] Comment on above: B-12 injection, flu Start: 12-03-2023 End: 12-03-2023 Patient encounter procedure 12/03/2023 9:00 AM EDT Office Visit Orthopaedics [address] [place] [address] Jordan Griffith MD [address] [place] [address] Right hip pain [M25.551] Orthopaedics Comment on above: Right hip pain [M25.551] Start: 11-26-2023 End: 11-26-2023 Anticoagulant drug monitoring 11/26/2023 10:00 AM EDT Anticoagulation Visit [facility] [place] [address] [place] [address] Wstr, Anticoag [facility] [place] [address] [place] [address] anticoagulation [facility] Comment on above: anticoagulation Start: 11-13-2023 End: 11-13-2023 Infusion Center 11/13/2023 11:15 AM EDT Infusion Center Hematology/Oncology [address] [place] [address] [place]str, Lab[facility] [address] [place] [address] [facility] (PORT)/ ORDERING PROV MELCHOR FELIX* Hematology/Oncology Comment on above: [facility] (PORT)/ ORDERING PROV MELCHOR KAMARA* Start: 11-11-2023 Covid-19 Vaccine ( season) Covid-19 Vaccine ( season) [facility] Start: 11-11-2023 Covid-19 Vaccine () Covid-19 Vaccine () [facility] Start: 11-11-2023 Influenza vaccination Influenza Vaccine (#1) [facility] Start: 11-08-2023 End: 11-08-2023 Nursing evaluation of patient and report 11/08/2023 10:30 AM EDT Nurse Visit [facility] [address] [facility] [place] [facility] [place] [address] Nurse, [place] [address] [place] [address] B-12 injection Family [facility] Comment on above: B-12 injection Start: 11-08-2023 End: 11-08-2023 Anticoagulant drug monitoring 11/08/2023 10:00 AM EDT Anticoagulation Visit [facility] [place] [address] [facility] [place] [facility] [place] [address] Wstr, Anticoag [facility] [place] [address] [place] [address] inr [facility] Comment on above: inr Start: 11-07-2023 End: 11-07-2023 Infusion Center 11/07/2023 9:00 AM EDT Infusion Center Hematology/Oncology [address] [place] [address] Wstr, Lab[facility] [address] [place] [address] [facility] (PORT)/ ORDERING PROV MELCHOR FELIX* Hematology/Oncology Comment on above: [facility] (PORT)/ ORDERING PROV MELCHOR KAMARA* Start: 11-02-2023 End: 11-02-2023 Anticoagulant drug monitoring 11/02/2023 10:00 AM EDT Anticoagulation Visit [facility] [place] [address] [facility] [place] [place] [place] [address] Wstr, Anticoag [facility] [place] [address] [place] [address] inr [facility] Comment on above: inr Start: 10-30-2023 End: 10-30-2023 Orders Only 10/30/2023 Orders Only Family [facility] [address] [facility] [place] [address] Kapil Guillen, TEENA.LABORER [employer] [address] [place] [address] Family [facility] Start: 10-23-2023 End: 10-23-2023 Patient encounter procedure 10/23/2023 11:00 AM EDT Office Visit [facility] [address] [place] [address] Kapil Guillen, 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 [employer] [address] [place] [address] 3 month follow up [facility] Comment on above: 3 month follow up Start: 10-18-2023 End: 10-18-2023 Anticoagulant drug monitoring 10/18/2023 10:00 AM EDT Anticoagulation Visit [facility] [place] [address] [place] [address] Wstr, Anticoag [facility] [place] [address] [place] [address] inr Coumadin [facility] Comment on above: inr Start: 10-16-2023 End: 10-16-2023 Infusion Center 10/16/2023 11:15 AM EDT Infusion Center Hematology/Oncology [address] [facility] [place] [address] Wstr, Lab[facility] [address] [place] [address] [facility] (PORT)/ ORDERING PROV MELCHOR WASHINGTON* Hematology/Oncology Comment on above: [facility] (PORT)/ ORDERING PROV MELCHOR KAMARA* Start: 10-11-2023 End: 10-11-2023 Anticoagulant drug monitoring 10/11/2023 10:30 AM EDT Anticoagulation Visit [facility] [place] [address] [place] [address] Wstr, Anticoag [facility] [place] [address] [place] [address] inr [facility] Comment on above: inr Start: 10-11-2023 End: 10-11-2023 Nursing evaluation of patient and report 10/11/2023 10:00 AM EDT Nurse Visit [facility] [place] [address] [place] [address] Nurse, [place] [address] [place] [address] B-12 injection [facility] Comment on above: B-12 injection Start: 10-10-2023 End: 10-10-2023 Infusion Center 10/10/2023 9:00 AM EDT Infusion Center Hematology/Oncology [address] [place] [address] [place], Lab[facility] [address] [place] [address] [facility] ([facility])/ ORDERING PROV MELCHOR WASHINGTON* Hematology/Oncology Comment on above: [facility] ([facility])/ ORDERING PROV MELCHOR ENGLEISON* Start: 09-18-2023 End: 09-18-2023 Infusion Center 09/18/2023 11:15 AM EDT Infusion Center Hematology/Oncology [address] [place] [address] [place], Lab[facility] [address] [place] [address] [facility] ([facility])/ ORDERING PROV MELCHOR WASHINGTON* Hematology/Oncology Comment on above: [facility] (PORT)/ ORDERING PROV MELCHOR KAMARA* Start: 09-12-2023 Hemoglobin A1c measurement HbA1C [facility] Start: 09-12-2023 End: 09-12-2023 Infusion Center Hematology/Oncology Comment on above: [facility] (PORT)/ ORDERING PROV MELCHOR KAMARA* B-12 injection inr Start: 08-21-2023 End: 08-21-2023 Infusion Center 08/21/2023 11:15 AM EDT Infusion Center Hematology/Oncology [address] [place] [address] [place], [facility] [address] [place] [address] [facility] (PORT)/ ORDERING PROV MELCHOR WASHINGTON* Hematology/Oncology Comment on above: [facility] (PORT)/ ORDERING PROV MELCHOR KAMARA* Start: 08-17-2023 Urine microalbumin profile [facility] Start: 08-16-2023 End: 08-16-2023 Nursing evaluation of patient and report 08/16/2023 10:30 AM EDT Nurse Visit [facility] [place] [address] [place] [address] Nurse, [place] [address] [place] [address] B-12 injection [facility] [place] Comment on above: B-12 injection Start: 08-16-2023 End: 08-16-2023 Anticoagulant drug monitoring 08/16/2023 10:15 AM EDT Anticoagulation [facility] [place] [address] [place] [address] [place]str, Anticoag [facility] [place] [address] [place] [address] inr [facility] Comment on above: inr Start: 08-15-2023 Glaucoma screening Dilated Retinal Exam [facility] Start: 08-15-2023 Hepatitis C antibody, confirmatory test DILATED RETINAL EXAM [facility] Start: 08-15-2023 End: 08-15-2023 Infusion Center 08/15/2023 9:00 AM EDT Infusion Center Hematology/Oncology [address] [place] [address] [place], [facility] [address] [place] [address] [facility] (PORT)/ ORDERING CAMI WASHINGTON* Hematology/Oncology Comment on above: [facility] (PORT)/ ORDERING PROV MELCHOR KAMARA* Start: 08-10-2023 Hepatitis B screening URINE ALBUMIN:CREATININE RATIO [facility] Start: 07-31-2023 End: 07-31-2023 Anticoagulant drug monitoring 07/31/2023 10:00 AM EDT Anticoagulation Visit [facility] [place] [address] [place] [address] Wstr, Anticoag [facility] [place] [address] [place] [address] INR [facility] Comment on above: INR Start: 06-18-2023 End: 09-17-2023 Cancer Ag 125 [Units/volume] in Serum or Plasma CA 125 BLD Lab Routine Malignant neoplasm of bilateral ovaries (HCC) Expected: 06/18/2023, Expires: 09/17/2023 [facility] Work Phone: Comment on above: Expected: 06/18/2023, Expires: Start: 03-20-2023 3 comp foot exam completed DIABETIC FOOT EXAM [facility] Start: 03-20-2023 Diabetic foot examination Diabetic Foot Exam [facility] Start: 03-12-2023 Behavioral Health Screening Behavioral Health Screening [facility] Start: 01-09-2023 End: 04-10-2023 25-hydroxyvitamin D3 [Mass/volume] in Serum or Plasma VITAMIN D 25 HYDROXY Lab Routine Vitamin D deficiency Expected: 01/09/2023, Expires: 04/10/2023 [facility] Work Phone: Comment on above: Expected: 01/09/2023, Expires: 4 Start: 01-09-2023 End: 04-10-2023 CBC W Auto Differential panel - Blood CBC + DIFF Lab Routine Essential hypertension, benign Expected: 01/09/2023, Expires: 04/10/2023 [facility] Work Phone: Comment on above: Expected: 01/09/2023, Expires: 4 Start: 01-09-2023 End: 04-10-2023 Cobalamin (Vitamin B12) [Mass/volume] in Serum or Plasma VITAMIN B12 BLOOD Lab Routine Vitamin B12 deficiency 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, 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, on [facility] insulin pump (HCC) Expected: 01/09/2023, Expires: 04/10/2023 [facility] Work Phone: Comment on above: Expected: 01/09/2023, Expires: 4 Start: 01-09-2023 End: 04-10-2023 Thyrotropin [Units/volume] in Serum or Plasma TSH BLD Lab Routine Hypothyroidism, acquired Expected: 01/09/2023, Expires: 04/10/2023 [facility] Work Phone: Comment on above: Expected: 01/09/2023, Expires: 4 Start: 01-09-2023 End: 04-10-2023 Thyroxine (T4) free [Mass/volume] in Serum or Plasma T4 FREE/FREE THYROX Lab Routine Hypothyroidism, acquired Expected: 01/09/2023, Expires: 04/10/2023 [facility] Work Phone: Comment on above: Expected: 01/09/2023, Expires: 4 Start: 11-10-2022 Covid-19 Vaccine ( season) Covid-19 Vaccine () [facility] Start: 11-10-2022 Influenza vaccination [facility] Start: 11-01-2022 Hepatitis C antibody, confirmatory test DILATED RETINAL EXAM [facility] Start: 09-19-2022 Hemoglobin A1c/Hemoglobin.total in Blood HBA1C [facility] Start: 07-05-2022 End: 09-04-2022 Cobalamin (Vitamin B12) [Mass/volume] in Serum or Plasma VITAMIN B12 BLOOD Lab Routine Vitamin B12 deficiency Expected: 07/05/2022, Expires: 09/04/2022 [facility] Work Phone: Comment on above: Expected: 07/05/2022, Expires: 3 Start: 07-05-2022 End: 09-04-2022 Thyrotropin [Units/volume] in Serum or Plasma TSH BLD Lab Routine Hypothyroidism, acquired Expected: 07/05/2022, Expires: 09/04/2022 [facility] Work Phone: Comment on above: Expected: 07/05/2022, Expires: 3 Start: 07-05-2022 End: 09-04-2022 Thyroxine (T4) free [Mass/volume] in Serum or Plasma T4 FREE/FREE THYROX Lab Routine Hypothyroidism, acquired Expected: 07/05/2022, Expires: 09/04/2022 [facility] Work Phone: Comment on above: Expected: 07/05/2022, Expires: 3 Start: 07-04-2022 End: 09-03-2022 ALBUMIN/CREAT RATIO RND UR ALBUMIN/CREAT RATIO RND UR Lab Routine 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) Expected: 07/04/2022, Expires: 09/03/2022 [facility] Work Phone: Comment on above: Expected: 07/04/2022, Expires: 3 Start: 06-14-2022 End: 08-14-2022 Cancer Ag 125 [Units/volume] in Serum or Plasma CA 125 BLD Lab Routine Malignant neoplasm of both ovaries (HCC) Expected: 06/14/2022, Expires: 08/14/2022 [facility] Work Phone: Comment on above: Expected: 06/14/2022, Expires: 3 Start: 06-14-2022 End: 08-14-2022 Urinalysis complete panel - Urine URINALYSIS WITH MICROSCOPIC, REFLEX CULTURE Lab Routine Malignant neoplasm of both ovaries (HCC) Expected: 06/14/2022, Expires: 08/14/2022 [facility] Work Phone: Comment on above: Expected: 06/14/2022, Expires: 3 Start: 04-28-2022 Hepatitis C antibody, confirmatory test DILATED RETINAL EXAM [facility] Start: 04-27-2022 Hemoglobin A1c/Hemoglobin.total in Blood HBA1C [facility] Start: 03-29-2022 End: 05-29-2022 Bacteria identified in Urine by Culture URINE CULTURE Microbiology Routine Dysuria Expected: 03/29/2022, Expires: 05/29/2022 [facility] Work Phone: Comment on above: Expected: 03/29/2022, Expires: 3 Start: 03-20-2022 End: 05-20-2022 25-hydroxyvitamin D3 [Mass/volume] in Serum or Plasma VITAMIN D 25 HYDROXY Lab Routine Vitamin D deficiency Expected: 03/20/2022, Expires: 05/20/2022 [facility] Work Phone: Comment on above: Expected: 03/20/2022, Expires: 3 Start: 03-20-2022 End: 05-20-2022 Bacteria identified in Urine by Culture URINE CULTURE Microbiology Routine Dysuria Expected: 03/20/2022, Expires: 05/20/2022 [facility] Work Phone: Comment on above: Expected: 03/20/2022, Expires: 3 Start: 03-20-2022 End: 05-20-2022 Cancer Ag 125 [Units/volume] in Serum or Plasma CA 125 BLD Lab Routine Malignant neoplasm of both ovaries (HCC) Expected: 03/20/2022, Expires: 05/20/2022 [facility] Work Phone: Comment on above: Expected: 03/20/2022, Expires: 3 Start: 03-20-2022 End: 05-20-2022 CBC W Auto Differential panel - Blood CBC + DIFF Lab Routine Hypothyroidism, acquired Expected: 03/20/2022, Expires: 05/20/2022 [facility] Work Phone: Comment on above: Expected: 03/20/2022, Expires: 3 Start: 03-20-2022 End: 05-20-2022 Cobalamin (Vitamin B12) [Mass/volume] in Serum or Plasma VITAMIN B12 BLOOD Lab Routine Vitamin B12 deficiency Expected: 03/20/2022, Expires: 05/20/2022 [facility] Work Phone: Comment on above: Expected: 03/20/2022, Expires: 3 Start: 03-20-2022 End: 05-20-2022 Comprehensive metabolic 2000 panel - Serum or Plasma COMP METABOLIC PANEL Lab Routine Hypothyroidism, acquired Expected: 03/20/2022, Expires: 05/20/2022 [facility] Work Phone: Comment on above: Expected: 03/20/2022, Expires: 3 Start: 03-20-2022 End: 05-20-2022 Hemoglobin A1c in Blood HGB A1C Lab Routine 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, 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, 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) Expected: 03/20/2022, Expires: 05/20/2022 [facility] Work Phone: Comment on above: Expected: 03/20/2022, Expires: 3 Start: 03-20-2022 End: 05-20-2022 Thyrotropin [Units/volume] in Serum or Plasma TSH BLD Lab Routine Hypothyroidism, acquired Expected: 03/20/2022, Expires: 05/20/2022 [facility] Work Phone: Comment on above: Expected: 03/20/2022, Expires: 3 Start: 03-20-2022 End: 05-20-2022 Thyroxine (T4) free [Mass/volume] in Serum or Plasma T4 FREE/FREE THYROX Lab Routine Hypothyroidism, acquired Expected: 03/20/2022, Expires: 05/20/2022 [facility] Work Phone: Comment on above: Expected: 03/20/2022, Expires: 3 Start: 03-20-2022 End: 05-20-2022 Urinalysis complete panel - Urine URINALYSIS, WITH MICROSCOPIC Lab Routine Dysuria Expected: 03/20/2022, Expires: 05/20/2022 [facility] Work Phone: Comment on above: Expected: 03/20/2022, Expires: 3 Start: 03-12-2022 ADVANCE DIRECTIVE DISCUSSION ADVANCE DIRECTIVE DISCUSSION [facility] Start: 03-12-2022 DEPRESSION ASSESSMENT DEPRESSION ASSESSMENT [facility] Start: 12-26-2021 End: 02-25-2022 Cancer Ag 125 [Units/volume] in Serum or Plasma CA 125 BLD Lab Routine Malignant neoplasm of both ovaries (HCC) Expected: 12/26/2021, Expires: 02/25/2022 [facility] Work Phone: Comment on above: Expected: 12/26/2021, Expires: 2 Start: 12-14-2021 End: 02-13-2022 25-hydroxyvitamin D3 [Mass/volume] in Serum or Plasma VITAMIN D 25 HYDROXY Lab Routine Vitamin D deficiency Expected: 12/14/2021, Expires: 02/13/2022 [facility] Work Phone: Comment on above: Expected: 12/14/2021, Expires: 2 Start: 12-14-2021 End: 02-13-2022 CBC W Auto Differential panel - Blood CBC + DIFF Lab Routine 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, 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, 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) Hypothyroidism, acquired Expected: 12/14/2021, Expires: 02/13/2022 [facility] Work Phone: Comment on above: Expected: 12/14/2021, Expires: 2 Start: 12-14-2021 End: 02-13-2022 Cobalamin (Vitamin B12) [Mass/volume] in Serum or Plasma VITAMIN B12 BLOOD Lab Routine Vitamin B12 deficiency Expected: 12/14/2021, Expires: 02/13/2022 [facility] Work Phone: Comment on above: Expected: 12/14/2021, Expires: 2 Start: 12-14-2021 End: 02-13-2022 Comprehensive metabolic 2000 panel - Serum or Plasma COMP METABOLIC PANEL Lab Routine 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, 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, on [facility] insulin pump (HCC) Hypothyroidism, acquired Expected: 12/14/2021, Expires: 02/13/2022 [facility] Work Phone: Comment on above: Expected: 12/14/2021, Expires: 2 Start: 11-10-2021 Influenza vaccination INFLUENZA (#1) [facility] Start: 10-19-2021 End: 12-19-2021 25-hydroxyvitamin D3 [Mass/volume] in Serum or Plasma VITAMIN D 25 HYDROXY Lab Routine Vitamin D deficiency Expected: 10/19/2021, Expires: 12/19/2021 [facility] Work Phone: Comment on above: Expected: 10/19/2021, Expires: 2 Start: 10-19-2021 End: 12-19-2021 Cancer Ag 125 [Units/volume] in Serum or Plasma CA 125 BLD Lab Routine Malignant neoplasm of both ovaries (HCC) Expected: 10/19/2021, Expires: 12/19/2021 [facility] Work Phone: Comment on above: Expected: 10/19/2021, Expires: 2 Start: 10-19-2021 End: 12-19-2021 CBC W Auto Differential panel - Blood CBC + DIFF Lab Routine Malignant neoplasm of both ovaries (HCC) Expected: 10/19/2021, Expires: 12/19/2021 [facility] Work Phone: Comment on above: Expected: 10/19/2021, Expires: 2 Start: 10-19-2021 End: 12-19-2021 Cobalamin (Vitamin B12) [Mass/volume] in Serum or Plasma VITAMIN B12 BLOOD Lab Routine Vitamin B12 deficiency Expected: 10/19/2021, Expires: 12/19/2021 [facility] Work Phone: Comment on above: Expected: 10/19/2021, Expires: 2 Start: 10-19-2021 End: 12-19-2021 Comprehensive metabolic 2000 panel - Serum or Plasma COMP METABOLIC PANEL Lab Routine Essential hypertension, benign Malignant neoplasm of both ovaries (HCC) Expected: 10/19/2021, Expires: 12/19/2021 [facility] Work Phone: Comment on above: Expected: 10/19/2021, Expires: 2 Start: 10-19-2021 End: 12-19-2021 Hemoglobin A1c in Blood HGB A1C Lab Routine 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, 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, on [facility] insulin pump (HCC) Expected: 10/19/2021, Expires: 12/19/2021 [facility] Work Phone: Comment on above: Expected: 10/19/2021, Expires: 2 Start: 10-19-2021 End: 12-19-2021 Thyrotropin [Units/volume] in Serum or Plasma TSH BLD Lab Routine Hypothyroidism, acquired Expected: 10/19/2021, Expires: 12/19/2021 [facility] Work Phone: Comment on above: Expected: 10/19/2021, Expires: 2 Start: 10-19-2021 End: 12-19-2021 Thyroxine (T4) free [Mass/volume] in Serum or Plasma T4 FREE/FREE THYROX Lab Routine Hypothyroidism, acquired Expected: 10/19/2021, Expires: 12/19/2021 [facility] Work Phone: Comment on above: Expected: 10/19/2021, Expires: 2 Start: 10-16-2021 End: 12-16-2021 Cancer Ag 125 [Units/volume] in Serum or Plasma CA 125 BLD Lab Routine Ovarian cancer, bilateral (HCC) Expected: 10/16/2021, Expires: 12/16/2021 [facility] Work Phone: Comment on above: Expected: 10/16/2021, Expires: 2 Start: 10-09-2021 COVID-19 VACCINE (5 - Booster for Moderna series) COVID-19 VACCINE (5 - Booster for Moderna series) [facility] Start: 08-22-2021 End: 10-22-2021 PT panel - Platelet poor plasma by Coagulation assay PROTHROMBIN TIME/PT Lab Routine Chronic anticoagulation Expected: 08/22/2021, Expires: 10/22/2021 [facility] Work Phone: Comment on above: Expected: 08/22/2021, Expires: 2 Start: 07-08-2021 End: 09-07-2021 PT panel - Platelet poor plasma by Coagulation assay PROTHROMBIN TIME/PT Lab Routine Chronic anticoagulation Expected: 07/08/2021, Expires: 09/07/2021 [facility] Work Phone: Comment on above: Expected: 07/08/2021, Expires: 2 Start: 03-12-2021 ADVANCE DIRECTIVE DISCUSSION ADVANCE DIRECTIVE DISCUSSION [facility] Start: 02-11-2021 COVID-19 VACCINE (4 - Booster for Moderna series) COVID-19 VACCINE (4 - Booster for Moderna series) [facility] Start: 02-05-2021 Hemoglobin A1c/Hemoglobin.total in Blood HBA1C [facility] Start: 01-05-2021 Hepatitis B screening URINE ALBUMIN:CREATININE RATIO [facility] Start: 01-05-2021 Hepatitis B surface antibody level LDL CHOLESTEROL [facility] Start: 12-23-2020 3 comp foot exam completed DIABETIC FOOT EXAM [facility] Start: 12-21-2020 SHINGRIX VACCINE (2 of 2) SHINGRIX VACCINE (2 of 2) [facility] Start: 12-21-2020 SHINGRIX VACCINE (3 of 3) SHINGRIX VACCINE (3 of 3) [facility] Start: 03-01-2017 End: 03-01-2017 Appointment Appointment [facility] Work Phone: Start: 01-01-2017 End: 01-01-2017 Appointment Appointment [facility] Work Phone: Start: 10-30-2016 End: 10-30-2016 *CMP Complete Metabolic Panel *CMP Complete Metabolic Panel [facility] [facility] Work Phone: Start: 10-30-2016 End: 10-30-2016 Hemoglobin A1c/Hemoglobin.total mass fraction (Bld) *HgA1C [facility] Work Phone: Start: 10-03-2016 End: 10-03-2016 Appointment Appointment [facility] Work Phone: Start: 07-04-2016 End: 07-05-2016 *CMP Complete Metabolic Panel *CMP Complete Metabolic Panel [facility] Work Phone: Start: 07-04-2016 End: 07-05-2016 *CMP Complete Metabolic Panel *CMP Complete Metabolic Panel [facility] Work Phone: Start: 06-28-2016 End: 06-30-2016 INR Coag RelTime (PPP) *PT/INR [facility] Work Phone: Start: 06-28-2016 End: 06-30-2016 INR Coag RelTime (PPP) *PT/INR [facility] Work Phone: Start: 05-23-2016 End: 06-30-2016 *CMP Complete Metabolic Panel *CMP Complete Metabolic Panel [facility] Work Phone: Start: 05-23-2016 End: 06-30-2016 *Microalbumin, Creatine Ratio, rand urine *Microalbumin, Creatine Ratio, rand urine [facility] Work Phone: Start: 05-23-2016 End: 06-30-2016 Hemoglobin A1c/Hemoglobin.total mass fraction (Bld) *HgA1C [facility] Work Phone: Start: 05-23-2016 End: 06-30-2016 Lipid 1996 panel *Lipid Profile [facility] Work Phone: Start: 05-23-2016 End: 06-30-2016 Thyrotropin Qn *TSH [facility] Work Phone: Start: 05-23-2016 End: 06-30-2016 *CMP Complete Metabolic Panel *CMP Complete Metabolic Panel [facility] Work Phone: Start: 05-23-2016 End: 06-30-2016 *Microalbumin, Creatine Ratio, rand urine *Microalbumin, Creatine Ratio, rand urine [facility] Work Phone: Start: 05-23-2016 End: 06-30-2016 Hemoglobin A1c/Hemoglobin.total mass fraction (Bld) *HgA1C [facility] Work Phone: Start: 05-23-2016 End: 06-30-2016 Lipid 1996 panel *Lipid Profile [facility] Work Phone: Start: 05-23-2016 End: 06-30-2016 Thyrotropin Qn *TSH [facility] Work Phone: Start: 02-14-2016 End: 02-14-2016 Complete Metabolic Panel Complete Metabolic Panel [facility] Work Phone: Start: 02-14-2016 End: 02-14-2016 Hemoglobin A1c/Hemoglobin.total mass fraction (Bld) HGBA1C [facility] Work Phone: Start: 02-14-2016 End: 02-14-2016 Complete Metabolic Panel Complete Metabolic Panel [facility] Work Phone: Start: 02-14-2016 End: 02-14-2016 Hemoglobin A1c/Hemoglobin.total mass fraction (Bld) HGBA1C [facility] Work Phone: Start: 2000 Hepatitis B Vaccine (1 of 3 - Risk 3-dose series) Hepatitis B Vaccine (1 of 3 - Risk 3-dose series) [facility] Start: 2000 RSV Vaccine (1 - 1-dose 60+ series) RSV Vaccine (1 - 1-dose 60+ series) [facility] 25-hydroxyvitamin D3 [Mass/volume] in Serum or Plasma VITAMIN D 25 HYDROXY Lab Routine Vitamin D deficiency 10/25/2021 11:45 AM [facility] Work Phone: 25-hydroxyvitamin D3 [Mass/volume] in Serum or Plasma VITAMIN D 25 HYDROXY Lab Routine Vitamin D deficiency 12/21/2021 9:17 AM [facility] Work Phone: 25-hydroxyvitamin D3 [Mass/volume] in Serum or Plasma VITAMIN D 25 HYDROXY Lab Routine Vitamin D deficiency 03/22/2022 8:40 AM [facility] Work Phone: 25-hydroxyvitamin D3 [Mass/volume] in Serum or Plasma VITAMIN D 25 HYDROXY Lab Routine Vitamin D deficiency 01/24/2023 8:35 AM [facility] Work Phone: ALBUMIN/CREAT RATIO RND UR ALBUMIN/CREAT RATIO RND UR Lab Routine 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) 08/09/2022 9:28 AM [facility] Work Phone: Ascorbate [Mass/volu me] in Serum or Plasma VITAMIN C Lab Routine Bruising 03/11/2024 10:55 AM [facility] Bacteria identified in Urine by Culture URINE CULTURE Microbiology Routine Dysuria 03/22/2022 8:40 AM [facility] Work Phone: CA 125 BLD CA 125 BLD Lab R outine Malignant neoplasm of both ovaries (HCC) Encounter for chemotherapy management 06/20/2021 11:11 AM [facility] Work Phone: CA 125 BLD CA 125 BLD Lab R outine Malignant neoplasm of both ovaries (HCC) Encounter for chemotherapy management 06/27/2021 11:47 AM [facility] Work Phone: CA 125 BLD CA 125 BLD Lab R outine Malignant neoplasm of both ovaries (HCC) Encounter for chemotherapy management 07/08/2021 11:00 AM [facility] Work Phone: CA 125 BLD CA 125 BLD Lab R outine Malignant neoplasm of both ovaries (HCC) Encounter for chemotherapy management 07/25/2021 11:05 AM [facility] Work Phone: Cancer Ag 125 [Units/volume] in Serum or Plasma CA 125 BLD Lab Routine Malignant neoplasm of both ovaries (HCC) Encounter for chemotherapy management 08/22/2021 11:32 AM [facility] Work Phone: Cancer Ag 125 [Units/volume] in Serum or Plasma CA 125 BLD Lab Routine Malignant neoplasm of both ovaries (HCC) 10/25/2021 11:45 AM [facility] Work Phone: Cancer Ag 125 [Units/volume] in Serum or Plasma CA 125 BLD Lab Routine Malignant neoplasm of both ovaries (HCC) Encounter for chemotherapy management 11/23/2021 8:47 AM [facility] Work Phone: Cancer Ag 125 [Units/volume] in Serum or Plasma CA 125 BLD Lab Routine Malignant neoplasm of both ovaries (HCC) Encounter for chemotherapy management 12/21/2021 9:17 AM [facility] [employer] [facility] [employer] Work Phone: Cancer Ag 125 [Units/volume] in Serum or Plasma CA 125 BLD Lab Routine Malignant neoplasm of both ovaries (HCC) 12/27/2021 1:32 PM [facility] [employer] Work Phone: Cancer Ag 125 [Units/volume] in Serum or Plasma CA 125 BLD Lab Routine Malignant neoplasm of both ovaries (HCC) Encounter for chemotherapy management 01/18/2022 8:51 AM [employer] [employer] Work Phone: Cancer Ag 125 [Units/volume] in Serum or Plasma CA 125 BLD Lab Routine Malignant neoplasm of both ovaries (HCC) 03/22/2022 8:40 AM [facility] [employer] [facility] [employer] Work Phone: Cancer Ag 125 [Units/volume] in Serum or Plasma CA 125 BLD Lab Routine Malignant neoplasm of both ovaries (HCC) Encounter for chemotherapy management 04/19/2022 8:51 AM [facility] [employer] Work Phone: Cancer Ag 125 [Units/volume] in Serum or Plasma CA 125 BLD Lab Routine Malignant neoplasm of both ovaries (HCC) Encounter for chemotherapy management 05/17/2022 8:57 AM [employer] [facility] [employer] Work Phone: End: 07-03-2023 Cancer Ag 125 [Units/volume] in Serum or Plasma CA 125 BLD Lab Routine Malignant neoplasm of both ovaries (HCC) Once per month for 12 Occurrences starting 07/03/2022 until 07/03/2023 [facility] Work Phone: Comment on above: Once per month for 12 Occurrences starti ng 07/03/2022 until 07/03/2023 Cancer Ag 125 [Units/volume] in Serum or Plasma CA 125 BLD Lab Routine Malignant neoplasm of both ovaries (HCC) 07/12/2022 8:49 AM [facility] [employer] Work Phone: Cancer Ag 125 [Units/volume] in Serum or Plasma CA 125 BLD Lab Routine Malignant neoplasm of both ovaries (HCC) 08/09/2022 9:28 AM [facility] Work Phone: Cancer Ag 125 [Units/volume] in Serum or Plasma CA 125 BLD Lab Routine Malignant neoplasm of both ovaries (HCC) 11/01/2022 8:45 AM [facility] Work Phone: Cancer Ag 125 [Units/volume] in Serum or Plasma CA 125 BLD Lab Routine Malignant neoplasm of both ovaries (HCC) 11/29/2022 8:51 AM [facility] Work Phone: Cancer Ag 125 [Units/volume] in Serum or Plasma CA 125 BLD Lab Routine Malignant neoplasm of both ovaries (HCC) 12/27/2022 8:55 AM [facility] Work Phone: Cancer Ag 125 [Units/volume] in Serum or Plasma CA 125 BLD Lab Routine Malignant neoplasm of both ovaries (HCC) 01/24/2023 8:35 AM [employer] [facility] [employer] Work Phone: Cancer Ag 125 [Units/volume] in Serum or Plasma CA 125 BLD Lab Routine Malignant neoplasm of both ovaries (HCC) 04/18/2023 8:48 AM [employer] [facility] [employer] Work Phone: Cancer Ag 125 [Units/volume] in Serum or Plasma CA 125 BLD Lab Routine Malignant neoplasm of bilateral ovaries (HCC) 06/19/2023 9:26 AM [facility] Work Phone: End: 07-16-2024 Cancer Ag 125 [Units/volume] in Serum or Plasma CA 125 Lab Routine Malignant neoplasm of bilateral ovaries (HCC) Once per month for 12 Occurrences starting 07/17/2023 until 07/16/2024 [facility] Work Phone: Comment on above: Once per month for 12 Occurrences starti ng 07/17/2023 until 07/16/2024 Cancer Ag 125 [Units/volume] in Serum or Plasma CA 125 Lab Routine Malignant neoplasm of bilateral ovaries (HCC) 07/24/2023 1:25 PM [facility] [employer] Work Phone: Cancer Ag 125 [Units/volume] in Serum or Plasma CA 125 Lab Routine Malignant neoplasm of bilateral ovaries (HCC) 09/18/2023 11:05 AM [facility] Work Phone: Cancer Ag 125 [Units/volume] in Serum or Plasma CA 125 Lab Routine Malignant neoplasm of bilateral ovaries (HCC) 10/16/2023 11:05 AM [facility] Work Phone: Cancer Ag 125 [Units/volume] in Serum or Plasma CA 125 Lab Routine Malignant neoplasm of bilateral ovaries (HCC) 11/13/2023 11:17 AM [facility] Work Phone: Cancer Ag 125 [Units/volume] in Serum or Plasma CA 125 Lab Routine Malignant neoplasm of bilateral ovaries (HCC) 12/11/2023 11:02 AM [facility] Work Phone: Cancer Ag 125 [Units/volume] in Serum or Plasma CA 125 Lab Routine Malignant neoplasm of bilateral ovaries (HCC) 01/15/2024 11:15 AM [employer] [facility] [employer] Work Phone: Cancer Ag 125 [Units/volume] in Serum or Plasma CA 125 Lab Routine Malignant neoplasm of bilateral ovaries (HCC) 02/12/2024 10:50 AM [employer] [facility] [employer] Work Phone: Cancer Ag 125 [Units/volume] in Serum or Plasma CA 125 Lab Routine Malignant neoplasm of bilateral ovaries (HCC) 03/11/2024 10:55 AM [employer] [facility] [employer] Work Phone: Cancer Ag 125 [Units/volume] in Serum or Plasma CA 125 Lab Routine Malignant neoplasm of bilateral ovaries (HCC) 04/08/2024 10:52 AM [employer] [facility] [employer] Work Phone: Cancer Ag 125 [Units/volume] in Serum or Plasma CA 125 Lab Routine Malignant neoplasm of bilateral ovaries (HCC) 06/03/2024 1:44 PM [facility] Work Phone: Cancer Ag 125 [Units/volume] in Serum or Plasma CA 125 Lab Routine Malignant neoplasm of both ovaries (HCC) 10/07/2024 2:11 PM [facility] [employer] Work Phone: Cobalamin (Vitamin B 12) [Mass/volume] in Serum or Plasma VITAMIN B12 BLOOD Lab Routine Vitamin B12 deficiency 10/25/2021 11:45 AM EDT [facility] Work Phone: Cobalamin (Vitamin B 12) [Mass/volume] in Serum or Plasma VITAMIN B12 BLOOD Lab Routine Vitamin B12 deficiency [facility] Cobalamin (Vitamin B 12) [Mass/volume] in Serum or Plasma VITAMIN B12 BLOOD Lab Routine Vitamin B12 deficiency 03/22/2022 8:40 AM EST [facility] Work Phone: Cobalamin (Vitamin B 12) [Mass/volume] in Serum or Plasma VITAMIN B12 BLOOD Lab Routine Vitamin B12 deficiency 07/12/2022 8:49 AM [facility] Work Phone: Cobalamin (Vitamin B 12) [Mass/volume] in Serum or Plasma VITAMIN B12 BLOOD Lab Routine Vitamin B12 deficiency 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, 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, 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) 01/24/2023 8:35 AM [facility] Work Phone: COLOGUARD COLOGUARD Lab Ro utine Screening for colon cancer Ordered: 03/20/2022 [facility] Work Phone: Comment on above: Ordered: 03/20/2022 Comprehensive metabo lic 2000 panel - Serum or Plasma COMP METABOLIC PANEL Lab Routine Malignant neoplasm of both ovaries (HCC) Encounter for chemotherapy management 08/22/2021 11:32 AM [facility] Work Phone: End: 07-03-2023 Comprehensive metabolic 2000 panel - Serum or Plasma COMP METABOLIC PANEL Lab Routine Malignant neoplasm of both ovaries (HCC) Once per month for 12 Occurrences starting 07/03/2022 until 07/03/2023 [facility] Work Phone: Comment on above: Once per month for 12 Occurrences starti ng 07/03/2022 until 07/03/2023 End: 07-16-2024 Comprehensive metabolic 2000 panel - Serum or Plasma COMPREHENSIVE METABOLIC PANEL Lab Routine Malignant neoplasm of bilateral ovaries (HCC) Once per month for 12 Occurrences starting 07/17/2023 until 07/16/2024 [facility] Comment on above: Once per month for 12 Occurrences starti ng 07/17/2023 until 07/16/2024 End: 06-08-2022 Echocardiography ECHO Cardiology Routine Encounter for chemotherapy management 1 Occurrences starting 06/08/2021 until 06/08/2022 [facility] Work Phone: Comment on above: 1 Occurrences starting 06/08/2021 until 06/08/2022 Ferritin [Mass/volum e] in Serum or Plasma FERRITIN Lab Routine Bruising 03/11/2024 10:55 AM EST [facility] Hemoglobin A1c in Blood HGB A1C Lab Routine 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, 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, on buttermaker helper insulin pump ([facility]) 10/25/2021 11:45 AM EDT [facility] Work Phone: Hemoglobin A1c in Blood HGB A1C Lab Routine 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, 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, on buttermaker helper insulin pump ([facility]) 03/22/2022 8:40 AM EST [facility] Work Phone: Hemoglobin A1c/Hemoglobin.total in Blood [facility] Work Phone: Hemoglobin.gastroint estin al.lower [Presence] in Stool by Immunoassay IMMUNOCHEMICAL FECAL OCCULT BLOOD TEST Lab Routine Bowel habit changes Generalized abdominal pain Ordered: 10/10/2024 [facility] Work Phone: Comment on above: Ordered: 10/10/2024 End: 03-02-2023 INR in Platelet poor plasma by Coagulation assay INR (POC) Lab Routine Other 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, unspecified chronicity (HCC) Once per month for 99 Occurrences starting 03/08/2022 until 03/02/2023 [facility] Work Phone: Comment on above: Once per month for 99 Occurrences starti ng 03/08/2022 until 03/02/2023 End: 05-29-2025 INR in Platelet poor plasma by Coagulation assay INR (POC) Lab Routine Pulmonary embolism, other, unspecified chronicity, unspecified whether acute cor pulmonale present (HCC) Once per month for 99 Occurrences starting 05/29/2024 until 05/29/2025 [facility] Work Phone: Comment on above: Once per month for 99 Occurrences starti ng 05/29/2024 until 05/29/2025 Iron and Iron bindin g capacity panel - Serum or Plasma IRON AND TIBC Lab Routine Bruising 03/11/2024 10:55 AM [facility] Magnesium [Mass/volu me] in Serum or Plasma MAGNESIUM BLD Lab Routine Malignant neoplasm of both ovaries (HCC) Encounter for chemotherapy management 08/22/2021 11:32 AM [facility] Work Phone: Patient Education WEIGHT%20MANAGEMENT [facility] Work Phone: PT panel - Platelet poor plasma by Coagulation assay PROTHROMBIN TIME/PT Lab Routine Chronic anticoagulation 09/02/2021 11:41 AM [facility] Work Phone: PT panel - Platelet poor plasma by Coagulation assay PROTHROMBIN TIME/PT Lab Routine Chronic anticoagulation 11/23/2021 8:47 AM [facility] Work Phone: PT panel - Platelet poor plasma by Coagulation assay PROTHROMBIN TIME/PT Lab Routine Chronic anticoagulation 12/21/2021 9:17 AM [facility] Work Phone: PT panel - Platelet poor plasma by Coagulation assay PROTHROMBIN TIME/PT Lab Routine Chronic anticoagulation 01/18/2022 8:51 AM [facility] Work Phone: End: 03-02-2023 PT panel - Platelet poor plasma by Coagulation assay PROTHROMBIN TIME/PT Lab STAT Other 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, unspecified chronicity (HCC) Once per month for 99 Occurrences starting 03/08/2022 until 03/02/2023 [facility] Work Phone: Comment on above: Once per month for 99 Occurrences starti ng 03/08/2022 until 03/02/2023 End: 08-10-2023 PT panel - Platelet poor plasma by Coagulation assay PROTHROMBIN TIME/PT Lab Routine 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 Once per month for 12 Occurrences starting 08/10/2022 until 08/10/2023 [facility] Work Phone: Comment on above: Once per month for 12 Occurrences starti ng 08/10/2022 until 08/10/2023 End: 07-16-2024 PT panel - Platelet poor plasma by Coagulation assay [facility] Comment on above: Once per month for 12 Occurrences starti ng 07/17/2023 until 07/16/2024 Once per month for 1 2 Occurrences starting 07/17/2023 until 07/16/2024, 4 completed PT panel - Platelet poor plasma by Coagulation assay PROTHROMBIN TIME Lab Routine Malignant neoplasm of bilateral ovaries (HCC) 09/18/2023 11:05 AM T [facility] End: 03-12-2024 PT panel - Platelet poor plasma by Coagulation assay PROTHROMBIN TIME/PT Lab STAT Other 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, unspecified chronicity (HCC) Once per month for 99 Occurrences starting 03/13/2023 until 03/12/2024, 8 completed [facility] Work Phone: Comment on above: Once per month for 99 Occurrences starti ng 03/13/2023 until 03/12/2024, 8 completed End: 05-29-2025 PT panel - Platelet poor plasma by Coagulation assay PROTHROMBIN TIME Lab STAT Pulmonary embolism, other, unspecified chronicity, unspecified whether acute cor pulmonale present (HCC) Once per month for 99 Occurrences starting 05/29/2024 until 05/29/2025 [facility] Comment on above: Once per month for 99 Occurrences starti ng 05/29/2024 until 05/29/2025 T4 FREE/FREE THYROX T4 FREE/FREE THYROX Lab Routine Hypothyroidism, acquired 08/05/2021 11:34 AM [facility] Work Phone: Thyrotropin [Units/volume] in Serum or Plasma TSH BLD Lab Routine Hypothyroidism, acquired 08/05/2021 11:34 AM [facility] Work Phone: Thyrotropin [Units/volume] in Serum or Plasma TSH BLD Lab Routine Hypothyroidism, acquired 10/25/2021 11:45 AM [facility] Work Phone: Thyrotropin [Units/volume] in Serum or Plasma TSH BLD Lab Routine Hypothyroidism, acquired 03/22/2022 8:40 AM [facility] Work Phone: Thyrotropin [Units/volume] in Serum or Plasma TSH BLD Lab Routine Hypothyroidism, acquired 07/12/2022 8:49 AM [facility] Work Phone: Thyrotropin [Units/volume] in Serum or Plasma TSH BLD Lab Routine Hypothyroidism, acquired 01/24/2023 8:35 AM [facility] Work Phone: Thyroxine (T4) free [Mass/volume] in Serum or Plasma T4 FREE/FREE THYROX Lab Routine Hypothyroidism, acquired 10/25/2021 11:45 AM [facility] Work Phone: Thyroxine (T4) free [Mass/volume] in Serum or Plasma T4 FREE/FREE THYROX Lab Routine Hypothyroidism, acquired 03/22/2022 8:40 AM [facility] Work Phone: Thyroxine (T4) free [Mass/volume] in Serum or Plasma T4 FREE/FREE THYROX Lab Routine Hypothyroidism, acquired 07/12/2022 8:49 AM [facility] Work Phone: Thyroxine (T4) free [Mass/volume] in Serum or Plasma T4 FREE/FREE THYROX Lab Routine Hypothyroidism, acquired 01/24/2023 8:35 AM [facility] Work Phone: UA DIP, URINE (POC) UA DIP, URIN E (POC) Lab Routine Encounter for chemotherapy management Ordered: 06/08/2021 [facility] Work Phone: Comment on above: Ordered: 06/08/2021 Urinalysis complete panel - Urine URINALYSIS, WITH MICROSCOPIC Lab Routine Dysuria 03/22/2022 8:40 AM [facility] Work Phone: URINALYSIS, DIPSTICK ONLY URINAL YSIS, DIPSTICK ONLY Lab Routine Encounter for chemotherapy management 04/19/2022 8:57 AM [facility] Work Phone: URINALYSIS, DIPSTICK ONLY URINAL YSIS, DIPSTICK ONLY Lab Routine Encounter for chemotherapy management 05/17/2022 8:57 AM [facility] Work Phone: VITAMIN B12 BLOOD VITAMIN B12 BL OOD Lab Routine Fatigue, unspecified type 08/05/2021 11:34 AM EDT [facility] Work Phone: VITAMIN D 25 HYDROXY VITAMIN D 2 5 HYDROXY Lab Routine Vitamin D deficiency Fatigue, unspecified type 08/05/2021 11:34 AM EDT [facility] Work Phone: End: 08-15-2024 XR Lumbar spine 3 Views XR LUMBAR GENERAL 3V AP/LAT/L5-S1 Radiology Routine Chronic midline low 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 DDD (degenerative disc disease), lumbar 1 Occurrences starting 07/17/2023 until 08/15/2024 [facility] Comment on above: 1 Occurrences starting 07/17/2023 until 08/15/2024 [facility] Immunizations Immunization Date Immunization Notes Care Provider Kishore araujo 01-02-2024 COVID-19 vaccine, ag e 12+ yr (PFIZER-BIONTECH COMIRNATY) [facility] Nurse Work Phone: [facility] 12-06-2023 influenza, high dose seasonal, preservative-free Mi Nurse Work Phone: [facility] 12-06-2023 influenza virus vacc ine, unspecified formulation Ks Nurse Work Phone: [facility] 01-10-2023 respiratory syncytia l virus (RSV) vaccine, adjuvanted (AREXVY) Melchor Washington DO Work Phone: [facility] Work Phone: 01-02-2023 COVID-19 vaccine, ag e 12+ yr, season (PFIZER-BIONTECH) [facility] Nurse Work Phone: [facility] Work Phone: 12-05-2022 influenza (HD-IIV4) vaccine, age 65+ yr, high dose, quadrivalent, PF (FLUZONE HIGH-DOSE) Ks Nurse Work Phone: [facility] Work Phone: 12-05-2022 influenza virus vacc ine, unspecified formulation Melchor Washington DO Work Phone: [facility] 08-15-2022 COVID-19 vaccine, ag e 12+ yr, bivalent (PFIZER-BIONTECH) Ks Nurse Work Phone: [facility] Work Phone: 12-14-2021 COVID-19 booster vaccine, age 12+ yr, bivalent (PFIZER-BIONTECH) Melchor Washington DO Work Phone: [facility] Work Phone: 11-10-2021 influenza virus vacc ine, unspecified formulation Lab/Port Wstr Work Phone: [facility] 06-09-2021 COVID-19 vaccine, booster dose (MODERNA) Allie Amado RN [facility] 10-26-2020 influenza (aIIV4) vaccine, age 65+ yr, quadrivalent, PF (FLUAD QUADRIVALENT) Anticoag Wstr Work Phone: [facility] Work Phone: 10-26-2020 zoster vaccine recombinant Anticoag Wstr Work Phone: [facility] Work Phone: 09-21-2020 zoster vaccine recombinant Melchor Washington DO Work Phone: [facility] Work Phone: 05-06-2020 Covid (Moderna) Dr. Melchor Washington Work Phone: [facility] Work Phone: 04-08-2020 Covid (Moderna) Dr. Melchor Washington Work Phone: [facility] Work Phone: 11-26-2019 influenza, high dose seasonal, preservative-free Anticoag Wstr Work Phone: [facility] 11-26-2017 influenza, high dose seasonal, preservative-free Anticoag Wstr Work Phone: [facility] Work Phone: 12-16-2016 influenza, high dose seasonal, preservative-free Anticoag Wstr Work Phone: [facility] 09-18-2016 pneumococcal polysaccharide vaccine, 23 valent Anticoag Wstr Work Phone: [facility] 12-17-2015 influenza, high dose seasonal, preservative-free Anticoag Wstr Work Phone: [facility] 12-05-[address] Melchor Washington Work Phone: [facility] Work Phone: 07-28-2015 pneumococcal conjuga te vaccine, 13 valent Anticoag Wstr Work Phone: [facility] Work Phone: 12-19-2014 influenza, high dose seasonal, preservative-free Anticoag Wstr Work Phone: [facility] Work Phone: 08-16-2013 tetanus toxoid, redu josy diphtheria toxoid, and acellular pertussis vaccine, adsorbed Anticoag Wstr Work Phone: [facility] Work Phone: 12-21-2012 influenza virus vacc ine, unspecified formulation Anticoag Wstr Work Phone: [facility] 08-08-2012 zoster vaccine, live Anticoa g Wstr Work Phone: [facility] Work Phone: 01-11-2012 influenza virus vacc ine, unspecified formulation Anticoag Wstr Work Phone: [facility] Work Phone: 12-09-2009 influenza virus vacc ine, unspecified formulation Anticoag Wstr Work Phone: [facility] Work Phone: 03-01-2009 novel influenza-H1N1 -09, all formulations Anticoag Wstr Work Phone: [facility] Work Phone: 12-11-1999 diphtheria and tetan us toxoids, adsorbed for pediatric use Anticoag [facility]str Work Phone: [facility] Work Phone: 12-10-1994 pneumococcal polysaccharide vaccine, 23 valent Anticoag Wstr Work Phone: [facility] Work Phone: Payers Date Payer Category Payer Self-pay [id number] 2021 Medicare AETNA MEDICARE A ETNA MEDICARE PPO [id number] 2021-Present [phone] [address] [place] [address] PPO [id number] 2021 Medicare AETNA MEDICARE A ETNA MEDICARE PPO [id number] 2021-Present [phone] [address] [place] [address] PPO [id number] 2021 Medicare (Managed Care) AETNA [place] [id number] 2014 Private Health Insurance [id number] Medicare MEDICARE PART A B [id number] Unknown [id number] Unknown [id number] Unknown [id number] Unknown [id number] Unknown [id number] Social History Date Type Detail Facility Start: 04-13-2016 End: 01-18-2024 Tobacco smoking status NHIS Ex-smoker [facility] Work Phone: History of tobacco use Cigarette Smoker [facility] Start: 05-17-2021 End: 10-10-2024 Alcohol intake Current non-drinker of alcohol (finding) [facility] Start: 06-24-2019 End: 09-18-2020 History SDOH Alcohol Frequency 1 [facility] Start: 09-18-2020 History SDOH Social Connections Phone 5 [facility] Start: 09-18-2020 History SDOH Social Connections Meetings 3 [facility] Start: 09-18-2020 History SDOH Financial 4 [facility] Start: 09-18-2020 History SDOH Transport Med 2 [facility] Start: 09-18-2020 Education 16 [facility] Start: 05-19-2014 End: 10-19-2021 Tobacco Comment quit age 26 [facility] Start: 1940 Sex Assigned At Not on file [facility] Start: 05-21-2021 End: 12-14-2021 Exposure to SARS-CoV-2 (event) Not sure [facility] Work Phone: History of tobacco use Current smoker [facility] Work Phone: Start: 04-13-2016 End: 01-18-2024 Tobacco use and exposure Smokeless tobacco non-user [facility] Work Phone: Start: 01-16-2022 Tobacco smoking stat us CTIS Unknown if ever smoked [facility] Work Phone: Start: 1940 Sex Assigned At Female W [facility] Work Phone: Start: 09-18-2020 End: 07-12-2022 History of Social function [facility] Start: 09-18-2020 End: 07-12-2022 Social connection and isolation panel [facility] Active Member of u bs or Organizations Not on file [facility] Work Phone: Are you now , , , , never or living with a partner? [facility] How often to you hav e a drink containing alcohol? Never [facility] How hard is it for y ou to pay for the very basics like food, housing, medical care, and heating Not very hard [facility] Do you feel stress - tense, restless, nervous, or anxious, or unable to sleep at night because your mind is troubled all the time - these days [OSQ] To some extent [facility] (I/We) worried wheth er (my/our) food would run out before (I/we) got money to buy more. Never true [facility] In the past 12 month s, was there a time when you were not able to pay the mortgage or rent on time? No [facility] Medical Equipment Procedure Code Equipment Code Equipment Origin al Text Equipment Identifier Dates [id number], [id number], [id number] Start: 12-30-2018 End: 10-23-2023 Comment on above: Dx: Dm1, use of insu ranjith, up to 4 strips per day, Use as instructed. 1 Strip as needed. 1 Each once every mo nt. Blood Sugar Diagnostic (Contour Next Test Strips) strip Start: 10-22-2017 End: 12-26-2017 Blood Sugar Diagnostic (Contour Next Test Strips) strip Start: 12-26-2017 End: 07-18-2021 Goals Date Patient Goal Desired Activity /State Personal health goal Functional Status Date Assessment Result Facility 10-13-2014 Are you deaf, or do you have serious difficulty hearing No 10/13/2014 7:55 AM Ximena Ahmadi LPN [facility] 10-13-2014 Are you blind, or do you have serious difficulty seeing, even when wearing glasses No 10/13/2014 7:55 AM Ximena Ahmadi LPN No [facility] 10-13-2014 Do you have serious difficulty walking or climbing stairs No 10/13/2014 7:55 AM Ximena Ahmadi LPN No [facility] 10-13-2014 Do you have difficul ty dressing or bathing No 10/13/2014 7:55 AM Ximena Ahmadi LPN No [facility] 10-13-2014 Because of a physica l, mental, or emotional condition, do you have difficulty doing errands alone such as visiting a physician's office or shopping No 10/13/2014 7:55 AM EDT Ximena Schafer LPN No [facility] Mental Status Date Assessment Result Facility 10-13-2014 Because of a physica l, mental, or emotional condition, do you have serious difficulty concentrating, remembering, or making decisions No 10/13/2014 7:55 AM EDT Ximena Schafer LPN No [facility] Clinical Notes 11-06-2006 to 10-10-2024 Telephone Encounter - Bianca Guevara LPN - 10/10/2024 1:53 PM EDTTelephone Encounter - Bianca Guevara LPN - 10/10/2024 1:53 PM EDTRKrystal ramos PA-C - 10/10/2024 9:49 AM EDT Note Date & Type Note Facility 10-10-2024 Telephone encounter Note Pt notified of Krystal's message and instructions. Pt verbalizes understanding. Bianca Guevara LPN [facility] 10-10-2024 Miscellaneous Notes Pt notified of Krystal's message and instructions. Pt verbalizes understanding. Bianca Guevara LPN Let her know xray did show moderate constipation. Can try miralax over the weekend to see if it can help with her stool. I also heard back from Dr. Patle's office. We will continue with the CT scan since it was able to be scheduled today. But if it is negative, we can proceed with the MRI. Krystal Anderson PA-C documented in this encounter [facility] 10-10-2024 Telephone encounter Note Let her know xray did show moderate constipation. Can try miralax over the weekend to see if it can help with her stool. I also heard back from Dr. Patel's office. We will continue with the CT scan since it was able to be scheduled today. But if it is negative, we can proceed with the MRI. Krystal Anderson PA-C [facility] 10-10-2024 History of Present illness Narrative Chief Complaint Patient presents with: abdominbal pain HPI Jerica Azul is a 84 year old female who presents here today for Above Complaints.. Peritoneal Cancer: - Diagnosed with peritoneal cancer; has had four recurrences. - Last recurrence was approximately three years ago. - CA-125 levels have been steadily increasing; unable to access recent results due to computer issues. - Last MRI of the pelvis was in 2020; cancer has not been visible on CT scans but has been detected on MRIs. - Has an appointment with oncologist Dr. Patel at the end of the month. - Concerns about undergoing another round of chemotherapy due to previous severe reactions. Abdominal Pain: - Experiencing worsening abdominal pain x6-7 months. worsened over the past couple weeks. - Taking Tylenol PM for pain relief, which helps with sleep. Changes in Bowel Habits: - Notable changes in bowel habits, with stools changing from normal to small, nugget-like pieces and occasional diarrhea. - Recent improvement in stool consistency noted this morning. - Has not cooked or eaten much recently due to nausea and discomfort. - Vomited yesterday after eating minimal food. - No urinary symptoms reported. Weight Loss: - Lisa reports an 8 lb weight loss since July. Diabetes: - Lisa has been adjusting basal insulin rates due to fluctuating blood sugar levels. - Uses a Dexcom device for monitoring. - Sees endo Last 6 Encounter Wt Readings: Date: Wt: 10/10/2024 68.9 kg (152 lb) 08/05/2024 73 kg (160 lb 15 oz) 04/22/2024 72.6 kg (160 lb) 01/18/2024 72.5 kg (159 lb 13.3 oz) 10/23/2023 0 kg () 07/17/2023 73.5 kg (162 lb) Past medical history, appointments, medications, allergies reviewed. Previous Medical History PAST MEDICAL HISTORY Diagnosis Date Absence of menstruation DDD (degenerative disc disease), lumbar Disorder of bone and cartilage, unspecified 07/24/02 Nondiabetic proliferative retinopathy mild-last visit 08/13/[address] 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) Insulin Pump, age 11 diagnosis Umbilical hernia without mention of obstruction or gangrene Urinary tract infection, site not specified Recurrent UTI's Previous Surgical History PAST SURGICAL HISTORY Procedure Laterality Date APPENDECTOMY DELIVERY ONLY , low cervical COLONOSCOPY FLX DX W/COLLJ SPEC WHEN PFRMD 01/2002 and 11/2006 Colonoscopy INSJ TUNNELED CTR VAD W/SUBQ PORT AGE 5 YR/> Right 05/15/2016 LIG/TRNSXJ FLP TUBE ABDL/VAG APPR UNI/BI PAST SURGICAL HISTORY OF Right carpal tunnel PAST SURGICAL HISTORY OF Bilateral cataract sx PAST SURGICAL HISTORY OF torticollis PAST SURGICAL HISTORY OF 09/10/2008 PROCEDURE CANCELLED- LEFT- UNABLE TO VISUALIZE- PAST SURGICAL HISTORY OF Bilateral Lasers in both eyes PAST SURGICAL HISTORY OF 05/13/2021 Diagnostic laparoscopy RPR UMBILICAL HRNA 5 YRS/> REDUCIBLE 10/17/2004 Hernia repair, umbilical, removal of internal insulin punmp SKIN BX, 1 LESION 05/13/2008 Punch bx skin of forehead TONSILLECTOMY PRIMARY/SECONDARY <AGE 12 Tonsillectomy TOTAL ABDOMINAL HYSTERECT W/WO RMVL TUBE OVARY 11/30/2006 Hysterectomy, KHOI, BSO US BREAST NEEDLE CORE BIOPSY LT 09/17/[address] Family History FAMILY HISTORY Problem Relation Age of Onset Breast Cancer Mother diagnosed age 68 Heart Father No Known Problems Sister No Known Problems Sister other (agent orange) Brother No Known Problems Maternal Grandmother No Known Problems Maternal Grandfather No Known Problems Paternal Grandmother No Known Problems Paternal Grandfather No Known Problems Daughter No Known Problems Daughter Breast Cancer Maternal Aunt diagnosed age 35-40 No Known Problems Grandchild other (ovarian cancer) Other no known family history other (Cornea problem- led to loss of vision) Other cousin No Known Problems Granddaughter Patient Allergies ALLERGIES Allergen Reactions Demerol [Meperidine* GI Upset Versed [Midazolam H* GI Upset Codeine loses consciousness;can take percocet with no problem Lisinopril Diarrhea Percocet [Oxycodone* Mental Status Change, GI Upset Current Medications Current Outpatient Medications on File Prior to Visit Medication Sig levothyroxine (SYNTHROID) 112 mcg tablet Take 1 tablet by mouth once daily. warfarin (COUMADIN) 2 mg tablet 2mg Mon,Fri and 3mg all other days or as directed metoprolol succinate ER (TOPROL XL) 25 mg 24 hr tablet Take 1 tablet by mouth once daily. atorvastatin (LIPITOR) 10 mg tablet Take 1 tablet by mouth once daily. warfarin (COUMADIN) 1 mg tablet 2mg Mon,Fri and 3mg all other days or as directed ergocalciferol 50,000 unit capsule (VITAMIN D2, DRISDOL) TAKE 2 CAPSULES BY MOUTH ONCE A WEEK diclofenac (VOLTAREN) 1 % topical gel Apply 2 g to affected area four times daily as needed. Knee pain for arthritis Urine Glucose-Ketones Test (KETO-DIASTIX) strp 1 Strip as needed. heparin 100 unit/mL injection Access implanted vascular access device (IVAD) as needed for flush, blood draw or treatment. Before de-accessing port, flush with 10-20ml normal saline and follow with 5 mL heparin (100 units/mL) (if no heparin allergy). De-access port on treatment completion. Insulin Pump Syringe (MINIMED SYR RES 3CC/22GX1/2) 3 mL misc Change site every 3 days COMPOUNDED PRESCRIPTION Enlite Sensors change sensor every 6 days COMPOUNDED PRESCRIPTION Insulin pump supplies faxed to [facility] Medical glucagon, human recombinant, (GLUCAGON EMERGENCY) 1 mg injection Inject 1 mg subcutaneously. INJECT FOR INSULIN SHOCK ubidecarenone(CO Q-10 100 MG CAP) Take one(1) capsule daily. tolterodine ER (DETROL LA) 2 mg 24 hr capsule Take 1 capsule by mouth once daily. insulin lispro-aabc (LYUMJEV) 100 unit/mL solution 90 Units. 0.9 % SODIUM CHLORIDE (0.9% NACL) Access implanted vascular access device (IVAD) as needed for flush, blood draw or treatment. Flush IVAD with 10-20 mL NS every 4 weeks and PRN when IVAD not in use. Current Facility-Administered Medications on File Prior to Visit Medication cyanocobalamin 1,000 mcg injection Social History Social History Tobacco Use Smoking status: Former Types: Cigarettes Smokeless tobacco: Never Tobacco comments: quit age 26 Vaping Use Vaping status: Never Used Substance Use Topics Alcohol use: No Drug use: No Review of Symptoms REVIEW OF SYSTEMS SEE HPI EXAM: BP 110/58 (BP Site: Left Arm, BP Position: Sitting, BP Cuff Size: Regular Adult) Pulse 96 Temp 36.6 C (97.8 F) Resp 18 Wt 68.9 kg (152 lb) SpO2 100% BMI 26.09 kg/m General Appearance: appears uncomfortable. Weak. Using wheel chair. . Lungs: Lungs clear to auscultation. No wheezing, rhonchi, rales.. Heart: RRR without murmur, gallop, or rubs. No ectopy. Abdomen: tender in all quadrants. BS decreased. difficult exam due to discomfort. . Health Maintenance List Urine Albumin:Creatinine Ratio due on 08/10/2023 DTaP,Tdap,Td Vaccine(3 - Td or Tdap) due on 08/17/2023 HbA1C due on 09/12/2023 Medicare Advantage Annual Wellness Visit Never done LDL Cholesterol due on 03/21/2024 Depression Screening due on 07/16/2024 Anxiety Screening due on 07/16/2024 Influenza Vaccine(1) due on 11/10/2024 Dilated Retinal Exam due on 05/20/2025 Diabetic Foot Exam due on 08/05/2025 RSV Vaccine Completed Shingrix Vaccine Completed Pneumococcal Vaccine: 50+ Completed Bone Density Screening Addressed Colorectal Cancer Screening Discontinued Advance Directive Discussion Discontinued Data reviewed Assessment and Plan 1. Generalized abdominal pain (R10.84) 2. Bowel habit changes (R19.4) - Ongoing abdominal pain for 6-7 months, worsening recently; associated with changes in bowel habits (nugget-like stools, intermittent diarrhea), nausea, and emesis. - Ordered stat abdominal X-ray to assess for signs of bowel obstruction or constipation. - Ordered CT scan of the abdomen to further evaluate etiology. - Ordered stool hemoccult test to assess for GI bleeding. 3. Cancer of peritoneum (HCC) (C48.2) 4. Malignant neoplasm of both ovaries (HCC) (C56.3) - History of peritoneal and ovarian cancer with multiple recurrences; rising CA-125 levels. - Most recent cancer recurrence approximately 3 years ago. - Will message oncologist Dr. Patel regarding current symptoms and diagnostic orders; appointment with oncology scheduled for November 05. Krystal Anderson PA-C Recording using [employer] software for draft documentation of the visit was discussed with the patient/authorized human resources representative; all questions welcomed and answered. Patient/authorized human resources representative agreed to proceed documented in this encounter [facility] 10-09-2024 History of Present illness Narrative Patient presents for B-12 injection. Denies any problems at this time. Patient instructed on any SE of medication, verbalized understanding and agreed to proceed with treatment. Tolerated injection well. Shilpi Orellana LPN documented in this encounter [facility] 10-07-2024 Miscellaneous Notes Pt. informed refused to have INR done in lab on Sunday will wait until Sunday. If patient is having no bleeding or complications, okay to hold Coumadin today, tomorrow and . Recheck INR on Sunday Melchor Washington DO Pt. is taking Coumadin 2 mg daily except for and she is taking 3 mg Patient s identity has been confirmed by name and birthdate: Yes Call received from Sarah Jolly at 3:31 PM to report a critical value for Jerica Azul with a result of INR greater than 8.0. Concetta with Dr Washington was notified of the result at 3:33 pm PM. Roseann Green RN documented in this encounter [facility] 10-07-2024 Telephone encounter Note Pt. informed refused to have INR done in lab on Sunday will wait until Sunday. [facility] 10-07-2024 Telephone encounter Note If patient is having no bleeding or complications, okay to hold Coumadin today, tomorrow and . Recheck INR on Sunday Melchor Washington DO [facility] 10-07-2024 Telephone encounter Note Pt. is taking Coumadin 2 mg daily except for and she is taking 3 mg [facility] 10-07-2024 Telephone encounter Note Patient s identity has been confirmed by name and birthdate: Yes Call received from Sarah Jolly at 3:31 PM to report a critical value for Jerica Azul with a result of INR greater than 8.0. Concetta with Dr Washington was notified of the result at 3:33 pm PM. Roseann Green RN [facility] 10-04-2024 Telephone encounter Note Patient has never done virtual, but is willing to come into the office. Appointment scheduled next available with Kapil on 10-28-24 and on wait list. T [facility] Work Phone: 10-04-2024 Miscellaneous Notes Patient has never done virtual, but is willing to come into the office. Appointment scheduled next available with Kapil on 10-28-24 and on wait list. Second attempt to notify patient and schedule VV. Left message to return call. Agree with below she needs office visit. VV at minimum. See if agreeable to virtual? What does she want MRI for? Thank you, Roberta Gibson APRN.[employer] Patient contacted office requesting to speak with Dr. Washington's nurse. She is wanting orders for cologaurd and for an MRI. PSS notified patient that she would need to schedule an appointment to discuss orders. Patient declined to schedule with PCP's triad's first availability on 10/10/24 stating she wanted to be seen sooner. Patient stated again that she wanted to speak with nurses and have them order the tests. She then abruptly ended call when PSS informed her that RN's would not be eligible to submit orders. Please contact patient to advise on plan of care. documented in this encounter [facility] 10-02-2024 Telephone encounter Note Second attempt to notify patient and schedule VV. [facility] 09-29-2024 Telephone encounter Note Left message to return call. [facility] 09-29-2024 Telephone encounter Note Agree with below she needs office visit. VV at minimum. See if agreeable to virtual? What does she want MRI for? Thank you, Roberta Gibson APRN.[employer] [facility] 09-26-2024 Telephone encounter Note Patient contacted office requesting to speak with Dr. Washington's nurse. She is wanting orders for cologaurd and for an MRI. PSS notified patient that she would need to schedule an appointment to discuss orders. Patient declined to schedule with PCP's triad's first availability on 10/10/24 stating she wanted to be seen sooner. Patient stated again that she wanted to speak with nurses and have them order the tests. She then abruptly ended call when PSS informed her that RN's would not be eligible to submit orders. Please contact patient to advise on plan of care. [facility] 09-11-2024 History of Present illness Narrative Patient presents for B-12 injection. Denies any problems at this time. Patient instructed on any SE of medication, verbalized understanding and agreed to proceed with treatment. Tolerated injection well. Shilpi Orellana LPN documented in this encounter [facility] 08-19-2024 History of Present illness Narrative Agree with below Melchor Washington DO patient had inr completed at [facility] patients inr is 2.1 (patients inr range is 2.0-3.0) patient is currently taking 2mg daily patients last dose change was on 08/14/24 due to a high level of >8.0 (dose at that time was 3mg Mon,Wed and 2mg all other days) patient has had a change in medication as antibiotic is now complete and no uninstructed missed coumadin doses and no change in diet Advised patient to continue on the same dose(s) and that they would only be contacted regarding dosage and follow up instructions after review with provider, if a change is needed. Written instructions given and patient verbalized understanding. Presently scheduled in 2 weeks (09/02/24 - with port lab draw) for follow up INR. documented in this encounter [facility] 08-14-2024 History of Present illness Narrative Agree with below. Thank you, Roberta Gibson APRN.[employer] patient had inr completed at [facility] patients inr is 8.0 (patients inr range is 2.0-3.0) patient is currently taking 3mg Mon,Wed and 2mg all other days patients last dose change unknown patient has had a change in medication as patient is currently on antibiotic (today is last dose) and no missed doses and no change in diet recommend: patient hold coumadin for 2 days and restart coumadin on Sunday at 2mg daily and recheck in 5 days patient has been scheduled for a 5 day follow up inr on 08/19/24 please review and advise on recommendation patient only needs called if provider does not agree with recommendation documented in this encounter [facility] 08-14-2024 History of Present illness Narrative Patient presents for B-12 injection. Denies any problems at this time. Patient instructed on any SE of medication, verbalized understanding and agreed to proceed with treatment. Tolerated injection well. Shilpi Orellana LPN documented in this encounter [facility] 08-05-2024 History of Present illness Narrative CC: Jerica Azul is a 84 year old female who presents to the office for follow up HPI: Pt here today for a routine follow up and B12 injection. URI symptoms, started a few days ago, body aches and chills, sinus pressure, ear pressure, sore throat, PND symptoms. + sick contacts with a partner of [employer]. Use of OTC supplements. Uro - Hx of bladder leaking, urgency, frequency, and UTI's. Has been seen by Urology in the past. Taking Oxybutynin XL 15 mg daily, but does not seem to help. Asking if she needs a stronger medication or just not take the medication. Wears pads to help with urine leakage/incontinence. Hx of primary peritoneal adenocarcinoma and CA125 levels are starting to elevate again- hasn't reached out to Dr. Mark to determine if need for repeat MRI pelvis Hypothyroidism - Stable on current regimen of Synthroid. Denies any missed dosages. TSH Date Value Ref Range Status 04/08/2024 1.990 0.270 - 4.200 mIU/L Final DM Type 1. Follows with Horacio, Dr. Rudy Ross. Has a CGM D7 and using Insulin pump. Recent A1c at 6.8% early May Mood - Overall stable without medications. Pain - Chronic low back pain, DDD and DJD lumbar spine. Denies falls recently or feeling unstable. Uses Tylenol for pain, but doesn't feel this is very helpful. HLD - Taking Lipitor as prescribed. Tolerating well without side effects. Has INR checked routinely by [facility]. On daily Warfarin due to hx of PE. B12- Hx of B12 deficiency. Receives monthly B12 shots with benefit. Needing rx refilled Iron deficiency, no recent bleeding, does occasionally get easy bruising. PAST MEDICAL HISTORY Diagnosis Date Absence of menstruation DDD (degenerative disc disease), lumbar Disorder of bone and cartilage, unspecified 07/24/02 Nondiabetic proliferative retinopathy mild-last visit 08/13/[address] 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) Insulin Pump, age 11 diagnosis Umbilical hernia without mention of obstruction or gangrene Urinary tract infection, site not specified Recurrent UTI's PAST SURGICAL HISTORY Procedure Laterality Date APPENDECTOMY DELIVERY ONLY , low cervical COLONOSCOPY FLX DX W/COLLJ SPEC WHEN PFRMD 01/2002 and 11/2006 Colonoscopy INSJ TUNNELED CTR VAD W/SUBQ PORT AGE 5 YR/> Right 05/15/2016 LIG/TRNSXJ FLP TUBE ABDL/VAG APPR UNI/BI PAST SURGICAL HISTORY OF Right carpal tunnel PAST SURGICAL HISTORY OF Bilateral cataract sx PAST SURGICAL HISTORY OF torticollis PAST SURGICAL HISTORY OF 09/10/2008 PROCEDURE CANCELLED- LEFT- UNABLE TO VISUALIZE- PAST SURGICAL HISTORY OF Bilateral Lasers in both eyes PAST SURGICAL HISTORY OF 05/13/2021 Diagnostic laparoscopy RPR UMBILICAL HRNA 5 YRS/> REDUCIBLE 10/17/2004 Hernia repair, umbilical, removal of internal insulin punmp SKIN BX, 1 LESION 05/13/2008 Punch bx skin of forehead TONSILLECTOMY PRIMARY/SECONDARY <AGE 12 Tonsillectomy TOTAL ABDOMINAL HYSTERECT W/WO RMVL TUBE OVARY 11/30/2006 Hysterectomy, KHOI, BSO US BREAST NEEDLE CORE BIOPSY LT 09/17/[address] Current Outpatient Medications Medication Sig doxycycline hyclate (VIBRAMYCIN) 100 mg capsule Take 1 capsule by mouth two times a day for 10 days. tolterodine ER (DETROL LA) 2 mg 24 hr capsule Take 1 capsule by mouth once daily. levothyroxine (SYNTHROID) 112 mcg tablet Take 1 tablet by mouth once daily. warfarin (COUMADIN) 2 mg tablet 2mg Mon,Fri and 3mg all other days or as directed insulin lispro-aabc (LYUMJEV) 100 unit/mL solution 90 Units. metoprolol succinate ER (TOPROL XL) 25 mg 24 hr tablet Take 1 tablet by mouth once daily. atorvastatin (LIPITOR) 10 mg tablet Take 1 tablet by mouth once daily. warfarin (COUMADIN) 1 mg tablet 2mg Mon,Fri and 3mg all other days or as directed ergocalciferol 50,000 unit capsule (VITAMIN D2, DRISDOL) TAKE 2 CAPSULES BY MOUTH ONCE A WEEK diclofenac (VOLTAREN) 1 % topical gel Apply 2 g to affected area four times daily as needed. Knee pain for arthritis Urine Glucose-Ketones Test (KETO-DIASTIX) strp 1 Strip as needed. 0.9 % SODIUM CHLORIDE (0.9% NACL) Access implanted vascular access device (IVAD) as needed for flush, blood draw or treatment. Flush IVAD with 10-20 mL NS every 4 weeks and PRN when IVAD not in use. heparin 100 unit/mL injection Access implanted vascular access device (IVAD) as needed for flush, blood draw or treatment. Before de-accessing port, flush with 10-20ml normal saline and follow with 5 mL heparin (100 units/mL) (if no heparin allergy). De-access port on treatment completion. Insulin Pump Syringe (MINIMED SYR RES 3CC/22GX1/2) 3 mL misc Change site every 3 days COMPOUNDED PRESCRIPTION Enlite Sensors change sensor every 6 days COMPOUNDED PRESCRIPTION Insulin pump supplies faxed to [facility] Medical glucagon, human recombinant, (GLUCAGON EMERGENCY) 1 mg injection Inject 1 mg subcutaneously. INJECT FOR INSULIN SHOCK ubidecarenone(CO Q-10 100 MG CAP) Take one(1) capsule daily. Current Facility-Administered Medications Medication Dose Route Frequency cyanocobalamin 1,000 mcg injection 1,000 mcg INTRAMUSCULAR q 4 WEEKS cyanocobalamin 1,000 mcg injection 1,000 mcg INTRAMUSCULAR As Directed ALLERGIES Allergen Reactions Demerol [Meperidine* GI Upset Versed [Midazolam H* GI Upset Codeine loses consciousness;can take percocet with no problem Lisinopril Diarrhea Percocet [Oxycodone* Mental Status Change, GI Upset Social History Tobacco Use Smoking status: Former Types: Cigarettes Smokeless tobacco: Never Tobacco comments: quit age 26 Vaping Use Vaping status: Never Used Substance Use Topics Alcohol use: No Drug use: No ROS: See HPI PE: BP 136/84 Pulse 84 Temp (Src) 98.9 (Left Tympanic) Resp 20 Wt 160 lb 15 oz (73.0kg) Gen: A&OX3, NAD, non-toxic appearing HEENT: PERRLA, EOMs intact b/l, nares with drainage, pharynx without erythema, exudate, lesions, + drainage. MMM, Uvula midline. + maxillary sinus TTP b/l Neck: + cervical LAD, no thyromegaly, no meningismus. CV: RRR, no murmur, normal s1s2 Lungs: CTA b/l, no wheezing Skin: No rashes, lesions, or wounds on exposed skin. Insulin pump and CGM in place No edema legs, normal pulses ASSESSMENT/PLAN: 1. Acute non-recurrent maxillary sinusitis - ICD9: 461.0, ICD10: J01.00 (primary diagnosis) - Will begin treatment with as per antibiotic as written, see orders - DOXYCYCLINE HYCLATE 100 MG CAPSULE 2. Essential hypertension, benign - ICD9: 401.1, ICD10: I10 - Controlled - Continue current medications - Recommend home blood pressure monitoring, to bring results to next visit - Encouraged sodium restriction, DASH or Mediterranean diet - Recommend regular aerobic exercise 3. Chronic anticoagulation - ICD9: V58.61, ICD10: Z79.01 Stable, continue warfarin, she has INR monitoring regularly 4. Hypothyroidism, acquired - ICD9: 244.9, ICD10: E03.9 - Instructed patient on importance of taking on an empty stomach either first thing in the morning or at bedtime. 5. 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, 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, on [facility] insulin pump (HCC) - ICD9: 250.91, V45.85, ICD10: E10.8, Z96.41 Managed by [employer] 6. Vitamin B12 deficiency - ICD9: 266.2, ICD10: E53.8 Continue injections for supplement 7. Pure hypercholesterolemia - ICD9: 272.0, ICD10: E78.00 stable 8. Cancer of peritoneum (HCC) - ICD9: 158.9, ICD10: C48.2 F/u with G[facility]NON[facility] Melchor Washington DO Return if no improvement. Follow up with Melchor Washington DO. To ER if develops chest pain, shortness of breath. Discussed risks, benefits, alternatives, and potential side effects of medications. Patient/Guardian expressed understanding and agreed with the plan. See patient instructions. Melchor Washington DO [address] [place] [address] documented in this encounter [facility] 07-17-2024 History of Present illness Narrative Agree with below recommendations. Kapil Guillen APRN.CNP patient had inr completed at [facility] patients inr is 2.9 (patients inr range is 2.0-3.0) patient is currently taking 3mg Mon,Wed and 2mg all other days patients last dose change unknown patient has had no changes in medication and no missed doses and no change in diet Advised patient to continue on the same dose(s) and that they would only be contacted regarding dosage and follow up instructions after review with provider, if a change is needed. Written instructions given and patient verbalized understanding. Presently scheduled in 4 weeks (08/14/24) for follow up INR. documented in this encounter [facility] 07-17-2024 History of Present illness Narrative Patient presents for B-12 injection. Denies any problems at this time. Patient instructed on any SE of medication, verbalized understanding and agreed to proceed with treatment. Tolerated injection well. Shilpi Orellana LPN documented in this encounter [facility] 07-01-2024 Telephone encounter Note Pt. informed. [facility] 07-01-2024 Miscellaneous Notes Pt. informed. No changes, recheck INR in 2 weeks Melchor Washington DO Last INR: INR 2.9 07/01/2024 Current dose of coumadin is: 3mg Mon,Wed and 2mg all other days . . Previous INR (date and result): 2.6 06/19/24 Additional Clinical Information or narrative: no documented in this encounter [facility] 07-01-2024 Telephone encounter Note No changes, recheck INR in 2 weeks Melchor Washington DO [facility] 07-01-2024 Telephone encounter Note Last INR: INR 2.9 07/01/2024 Current dose of coumadin is: 3mg Mon,Wed and 2mg all other days . . Previous INR (date and result): 2.6 06/19/24 Additional Clinical Information or narrative: no [facility] 07-01-2024 Telephone encounter Note This was already ordered today. Ashley Mathews PA-C [facility] Work Phone: 07-01-2024 Miscellaneous Notes This was already ordered today. Ashley Mathews PA-C Please place orders for monthly CA 125 . Thank you documented in this encounter [facility] 07-01-2024 Telephone encounter Note Order placed. Kapil Guillen APRN.[employer] [facility] 07-01-2024 Miscellaneous Notes Order placed. Kapil Guillen APRN.CNP Pt. would like CA 125 ordered she is here now for lab. documented in this encounter [facility] 07-01-[address] Please place orders for monthly CA 125 . Thank you [facility] 07-01-2024 Telephone encounter Note Pt. would like CA 125 ordered she is here now for lab. [facility] 06-19-2024 History of Present illness Narrative Agree with below recommendations. Kapil Guillen APRN.CNP patient had inr completed at [facility] patients inr is 2.6 (patients inr range is 2.0-3.0) patient is currently taking 3mg Mon,Wed and 2mg all other days patients last dose change unknown patient has had no changes in medication and no missed doses and no change in diet Advised patient to continue on the same dose(s) and that they would only be contacted regarding dosage and follow up instructions after review with provider, if a change is needed. Written instructions given and patient verbalized understanding. Presently scheduled in 4 weeks (07/17/24) for follow up INR. documented in this encounter [facility] 06-19-2024 History of Present illness Narrative Patient presents for B-12 injection. Denies any problems at this time. Patient instructed on any SE of medication, verbalized understanding and agreed to proceed with treatment. Tolerated injection well. Shilpi Orellana LPN documented in this encounter [facility] 06-05-2024 Telephone encounter Note Left message to return call Alondra Coombs MA [facility] 06-05-2024 Miscellaneous Notes Left message to return call Alondra Coombs MA Please make sure she is aware that her CA 125 level is at 41, which is stable Renal function and liver function and electrolytes are also stable Melchor Washington DO documented in this encounter [facility] 06-04-2024 Telephone encounter Note Please make sure she is aware that her CA 125 level is at 41, which is stable Renal function and liver function and electrolytes are also stable Melchor Washington DO [facility] 06-03-2024 Telephone encounter Note Pt. informed [facility] 06-03-2024 Miscellaneous Notes Pt. informed Please increase her dose to 2 mg every day other than 3 mg on Sun and Mondays Recheck INR 2 weeks Melchor Washington DO Last INR: INR 1.8 06/03/2024 Current dose of coumadin is: 2 mg every day except 3 mg on Sunday's. Previous INR (date and result): 1.9 05/29 Additional Clinical Information or narrative: no documented in this encounter [facility] 06-03-2024 Telephone encounter Note Please increase her dose to 2 mg every day other than 3 mg on Sun and Mondays Recheck INR 2 weeks Melchor Washington DO [facility] 06-03-2024 Telephone encounter Note Last INR: INR 1.8 06/03/2024 Current dose of coumadin is: 2 mg every day except 3 mg on Sunday's. Previous INR (date and result): 1.9 05/29 Additional Clinical Information or narrative: no [facility] 05-29-2024 History of Present illness Narrative Agree with below recommendations. Kapil Guillen APRN.CNP patient had inr completed at [facility] patients inr is 1.9 (patients inr range is 2.0-3.0) patient is currently taking 3mg Wed and 2mg all other days patients last dose change was on 02/26/24 due to a low level of 1.6 (dose at that time was 2mg daily) patient has had no changes in medication and no missed doses and no change in diet Advised patient to continue on the same dose(s) and that they would only be contacted regarding dosage and follow up instructions after review with provider, if a change is needed. Written instructions given and patient verbalized understanding. Presently scheduled in 3 weeks (06/19/24 pt has another appt at [facility] that days too) for follow up INR since level is just slightly low documented in this encounter [facility] 05-29-2024 Telephone encounter Note patients orders for coumadin clinic inr's has at this time. new order has been pended for approval if possible so that patient can continue to get inr's completed thru the coumadin clinic. coumadin clinic nurse only needs called if order can not be approved. [facility] 05-29-2024 Miscellaneous Notes patients orders for coumadin clinic inr's has at this time. new order has been pended for approval if possible so that patient can continue to get inr's completed thru the coumadin clinic. coumadin clinic nurse only needs called if order can not be approved. documented in this encounter [facility] 05-28-2024 Telephone encounter Note PT INR order is already in. Please schedule! Thanks, Roberta Gibson APRN.[employer] [facility] 05-28-2024 Miscellaneous Notes PT INR order is already in. Please schedule! Thanks, Roberta Gibson APRN.[employer] Please schedule for coumadin clinic. You do not to do anything Roberta unless order for the coumadin to be drawn is not in here. Noted. Do we need to order something for this? Roberta Gibson APRN.[employer] Patient returns call and message below reviewed. Patient reports that she would be willing to come into the Coumadin Clinic for her INR. Roseann Green RN Left message to return call Alondra Coombs MA Ifbyphone message sent to pt asking for a call back and that we attempted to reach her regarding her INR. Ember Grant MA Left message to return call Alondra Coombs MA Noted, does she want to just do INR through Coumadin clinic?> Melchor Washington DO Dr. Washington, I just wanted to let you know that Lisa came to [facility] to have labs drawn today and lab notified this nurse stating there wasn't enough blood for prothrombin lab order. This nurse notified pt requesting if pt could come back in to have lab order re- drawn. Pt stated No I am not coming back in because the last time this happen I was charged an extra $18. I just wanted you to be aware. Please advised. documented in this encounter [facility] 05-28-2024 Telephone encounter Note Please schedule for coumadin clinic. You do not to do anything Roberta unless order for the coumadin to be drawn is not in here. [facility] 05-28-2024 Telephone encounter Note Noted. Do we need to order something for this? Roberta Gibson APRN.[employer] [facility] 05-28-2024 Telephone encounter Note Patient returns call and message below reviewed. Patient reports that she would be willing to come into the Coumadin Clinic for her INR. Roseann Green RN [facility] 05-22-2024 History of Present illness Narrative Patient presents for B-12 injection. Denies any problems at this time. Patient instructed on any SE of medication, verbalized understanding and agreed to proceed with treatment. Tolerated injection well. Shilpi Orellana LPN documented in this encounter [facility] 05-21-2024 Telephone encounter Note Left message to return call Alondra Coombs MA [facility] 05-19-2024 Telephone encounter Note Mychart message sent to pt asking for a call back and that we attempted to reach her regarding her INR. Ember Grant MA [facility] 05-07-2024 Telephone encounter Note Left message to return call Alondra Coombs MA [facility] 05-07-2024 Telephone encounter Note Noted, does she want to just do INR through Coumadin clinic?> Melchor Washington DO [facility] 05-06-[address] Washington, I just wanted to let you know that Lisa came to [facility] to have labs drawn today and lab notified this nurse stating there wasn't enough blood for prothrombin lab order. This nurse notified pt requesting if pt could come back in to have lab order re- drawn. Pt stated No I am not coming back in because the last time this happen I was charged an extra $18. I just wanted you to be aware. Please advised. [facility] 04-22-2024 Telephone encounter Note Please see appointment [facility] 04-22-2024 Miscellaneous Notes Please see appointment [facility] is unable to do anything with this. I will forward it to the billing department Please have billing department work on a billing issue with a blood draw from 03/13 for an INR that should have been drawn on her 03/11 blood draw but was missed during her port flush/lab draw. This bill should be removed Melchor Washington DO documented in this encounter [facility] 04-22-2024 Telephone encounter Note [facility] is unable to do anything with this. I will forward it to the billing department [facility] 04-22-2024 Telephone encounter Note Please have billing department work on a billing issue with a blood draw from 03/13 for an INR that should have been drawn on her 03/11 blood draw but was missed during her port flush/lab draw. This bill should be removed Melchor Washington DO [facility] 04-22-2024 History of Present illness Narrative Chief Complaint Patient presents with: F/U 3 Month HPI Jerica Azul is a 84 year old female who presents here today for a 3 month follow up. Pt here today for a routine follow up and B12 injection. Uro - Hx of bladder leaking, urgency, frequency, and UTI's. Has been seen by Urology in the past. Taking Oxybutynin XL 15 mg daily, but does not seem to help. Asking if she needs a stronger medication or just not take the medication. Wears pads to help with urine leakage/incontinence. Hx of primary peritoneal adenocarcinoma and CA125 levels. Hypothyroidism - Stable on current regimen of Synthroid. Denies any missed dosages. DM Type 1. Follows with Dr. Rudy Leonard. Has a CGM D7 and using Insulin pump. Mood - Overall stable without medications. Pain - Chronic low back pain, DDD and DJD lumbar spine. Denies falls recently or feeling unstable. Uses Tylenol for pain, but doesn't feel this is very helpful. HLD - Taking Lipitor as prescribed. Tolerating well without side effects. Has INR checked routinely by [facility] Nurse. On daily Warfarin due to hx of PE. B12- Hx of B12 deficiency. Receives monthly B12 shots with benefit. Needing rx refilled Iron deficiency, no recent bleeding, does occasionally get easy bruising. HM - Has upcoming eye exam scheduled in a few weeks. Past medical history, appointments, medications, allergies reviewed. Previous Medical History PAST MEDICAL HISTORY Diagnosis Date Absence of menstruation DDD (degenerative disc disease), lumbar Disorder of bone and cartilage, unspecified 07/24/02 Nondiabetic proliferative retinopathy mild-last visit 08/13/[address] 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) Insulin Pump, age 11 diagnosis Umbilical hernia without mention of obstruction or gangrene Urinary tract infection, site not specified Recurrent UTI's Previous Surgical History PAST SURGICAL HISTORY Procedure Laterality Date APPENDECTOMY DELIVERY ONLY , low cervical COLONOSCOPY FLX DX W/COLLJ SPEC WHEN PFRMD 01/2002 and 11/2006 Colonoscopy INSJ TUNNELED CTR VAD W/SUBQ PORT AGE 5 YR/> Right 05/15/2016 LIG/TRNSXJ FLP TUBE ABDL/VAG APPR UNI/BI PAST SURGICAL HISTORY OF Right carpal tunnel PAST SURGICAL HISTORY OF Bilateral cataract sx PAST SURGICAL HISTORY OF torticollis PAST SURGICAL HISTORY OF 09/10/2008 PROCEDURE CANCELLED- LEFT- UNABLE TO VISUALIZE- PAST SURGICAL HISTORY OF Bilateral Lasers in both eyes PAST SURGICAL HISTORY OF 05/13/2021 Diagnostic laparoscopy RPR UMBILICAL HRNA 5 YRS/> REDUCIBLE 10/17/2004 Hernia repair, umbilical, removal of internal insulin punmp SKIN BX, 1 LESION 05/13/2008 Punch bx skin of forehead TONSILLECTOMY PRIMARY/SECONDARY <AGE 12 Tonsillectomy TOTAL ABDOMINAL HYSTERECT W/WO RMVL TUBE OVARY 11/30/2006 Hysterectomy, KHOI, BSO US BREAST NEEDLE CORE BIOPSY LT 09/17/[address] Family History FAMILY HISTORY Problem Relation Age of Onset Breast Cancer Mother diagnosed age 68 Heart Father No Known Problems Sister No Known Problems Sister other (agent orange) Brother No Known Problems Maternal Grandmother No Known Problems Maternal Grandfather No Known Problems Paternal Grandmother No Known Problems Paternal Grandfather No Known Problems Daughter No Known Problems Daughter Breast Cancer Maternal Aunt diagnosed age 35-40 No Known Problems Grandchild other (ovarian cancer) Other no known family history other (Cornea problem- led to loss of vision) Other cousin No Known Problems Granddaughter Patient Allergies ALLERGIES Allergen Reactions Demerol [Meperidine* GI Upset Versed [Midazolam H* GI Upset Codeine loses consciousness;can take percocet with no problem Lisinopril Diarrhea Percocet [Oxycodone* Mental Status Change, GI Upset Current Medications Current Outpatient Medications on File Prior to Visit Medication Sig oxybutynin ER (DITROPAN XL) 15 mg 24 hr Extended Rel Tab Take 1 tablet by mouth once daily. levothyroxine (SYNTHROID) 112 mcg tablet Take 1 tablet by mouth once daily. warfarin (COUMADIN) 2 mg tablet 2mg Mon,Fri and 3mg all other days or as directed insulin lispro-aabc (LYUMJEV) 100 unit/mL solution 90 Units. metoprolol succinate ER (TOPROL XL) 25 mg 24 hr tablet Take 1 tablet by mouth once daily. atorvastatin (LIPITOR) 10 mg tablet Take 1 tablet by mouth once daily. warfarin (COUMADIN) 1 mg tablet 2mg Mon,Fri and 3mg all other days or as directed ergocalciferol 50,000 unit capsule (VITAMIN D2, DRISDOL) TAKE 2 CAPSULES BY MOUTH ONCE A WEEK oxybutynin XL (DITROPAN XL) 10 mg 24 hr tablet Take 1 tablet by mouth once daily. For bladder incontinence mupirocin (BACTROBAN) 2 % ointment Apply to affected area once daily. Until skin sore healed on arm diclofenac (VOLTAREN) 1 % topical gel Apply 2 g to affected area four times daily as needed. Knee pain for arthritis estradiol (ESTRACE) 0.01 % (0.1 mg/gram) vaginal cream APPLY A FINGERTIP AMOUNT EVERY OTHER DAY DIRECTED Urine Glucose-Ketones Test (KETO-DIASTIX) strp 1 Strip as needed. 0.9 % SODIUM CHLORIDE (0.9% NACL) Access implanted vascular access device (IVAD) as needed for flush, blood draw or treatment. Flush IVAD with 10-20 mL NS every 4 weeks and PRN when IVAD not in use. heparin 100 unit/mL injection Access implanted vascular access device (IVAD) as needed for flush, blood draw or treatment. Before de-accessing port, flush with 10-20ml normal saline and follow with 5 mL heparin (100 units/mL) (if no heparin allergy). De-access port on treatment completion. Insulin Pump Syringe (MINIMZolkC SYR RES 3CC/22GX1/2) 3 mL misc Change site every 3 days COMPOUNDED PRESCRIPTION Enlite Sensors change sensor every 6 days COMPOUNDED PRESCRIPTION Insulin pump supplies faxed to [facility] Medical glucagon, human recombinant, (GLUCAGON EMERGENCY) 1 mg injection Inject 1 mg subcutaneously. INJECT FOR INSULIN SHOCK ubidecarenone(CO Q-10 100 MG CAP) Take one(1) capsule daily. Current Facility-Administered Medications on File Prior to Visit Medication cyanocobalamin 1,000 mcg injection Social History Social History Tobacco Use Smoking status: Former Types: Cigarettes Smokeless tobacco: Never Tobacco comments: quit age 26 Vaping Use Vaping status: Never Used Substance Use Topics Alcohol use: No Drug use: No Review of Symptoms REVIEW OF SYSTEMS See HPI EXAM: BP 128/82 (BP Site: Left Arm, BP Position: Sitting, BP Cuff Size: Regular Adult) Pulse 82 Resp 18 Wt 72.6 kg (160 lb) BMI 27.46 kg/m Gen: A&OX3, NAD, non-toxic appearing HEENT: PERRLA, EOMs intact b/l, nares without drainage, pharynx without erythema, exudate, lesions, or drainage. Uvula midline. MMM Neck: No LAD, no thyromegaly, no meningismus. CV: RRR, no murmur Lungs: CTA b/l, no wheezing Skin: scars on arms without signs of infection. Scattered solar lentigos and seborrheic keratoses No edema, legs Abdomen, mildly distended, normal BS, ND Thoracic kyphosis Gait slowed but stable Insulin pump in abdominal wall Cgm left thigh anterior Non focal neurologic exam Health Maintenance List Urine Albumin:Creatinine Ratio due on 08/10/2023 DTaP,Tdap,Td Vaccine(3 - Td or Tdap) due on 08/17/2023 HbA1C due on 09/12/2023 LDL Cholesterol due on 03/21/2024 Dilated Retinal Exam due on 03/28/2024 Diabetic Foot Exam due on 06/26/2024 Covid-19 Vaccine( season) due on 07/02/2024 Depression Screening due on 07/16/2024 Anxiety Screening due on 07/16/2024 Influenza Vaccine Completed RSV Vaccine Completed Shingrix Vaccine Completed Pneumococcal Vaccine: 50+ Completed Bone Density Screening Addressed Colorectal Cancer Screening Discontinued Advance Directive Discussion Discontinued Data reviewed Infusion Center on 04/08/2024 Component Date Value CA 125 04/08/2024 38 PT Sec 04/08/2024 31.5 (H) INR 04/08/2024 3.2 (H) Protein, Total 04/08/2024 6.1 (L) Albumin 04/08/2024 3.7 (L) Calcium, Total 04/08/2024 9.2 Bilirubin, Total 04/08/2024 0.8 Alkaline Phosphatase 04/08/2024 101 AST 04/08/2024 24 ALT 04/08/2024 15 Glucose 04/08/2024 283 (H) BUN 04/08/2024 23 (H) Creatinine 04/08/2024 0.89 Sodium 04/08/2024 137 Potassium 04/08/2024 4.1 Chloride 04/08/2024 105 CO2 04/08/2024 23 Anion Gap 04/08/2024 9 Estimated Glomerular Lakhwinder* 04/08/2024 64 TSH 04/08/2024 1.990 Infusion Center on 03/11/2024 Component Date Value PT Sec 03/13/2024 34.3 (H) INR 03/13/2024 3.6 (H) CA 125 03/11/2024 35 Vitamin C 03/11/2024 16 (L) Iron 03/11/2024 63 TIBC 03/11/2024 279 Transferrin Saturation 03/11/2024 22.6 Ferritin 03/11/2024 28.7 WBC 03/11/2024 6.31 RBC 03/11/2024 4.24 Hemoglobin 03/11/2024 13.1 Hematocrit 03/11/2024 39.6 MCV 03/11/2024 93.4 MCH 03/11/2024 30.9 MCHC 03/11/2024 33.1 RDW-CV 03/11/2024 14.9 Platelet Count 03/11/2024 240 MPV 03/11/2024 9.9 Neutrophils % 03/11/2024 70.6 Abs Neut 03/11/2024 4.45 Lymphocytes % 03/11/2024 17.7 Abs Lymph 03/11/2024 1.12 Monocytes % 03/11/2024 7.4 Abs Josephine 03/11/2024 0.47 Eosinophils % 03/11/2024 3.5 Abs Eosin 03/11/2024 0.22 Basophils % 03/11/2024 0.5 Abs Baso 03/11/2024 0.03 Immature Granulocytes % 03/11/2024 0.3 Abs Immature Gran 03/11/2024 <0.03 NRBC 03/11/2024 0.0 Absolute nRBC 03/11/2024 <0.01 Diff Type 03/11/2024 Auto Results Only on 02/26/2024 Component Date Value INR (POCT) 02/26/2024 1.6 (H) Internal Quality Check 02/26/2024 Acceptable ASSESSMENT/PLAN: 1. Pure hypercholesterolemia - ICD9: 272.0, ICD10: E78.00 (primary diagnosis) Check labs as ordered, stable 2. Essential hypertension, benign - ICD9: 401.1, ICD10: I10 - Controlled - Continue current medications - Recommend home blood pressure monitoring, to bring results to next visit - Encouraged sodium restriction, DASH or Mediterranean diet - Recommend regular aerobic exercise - Discussed need for and benefit of weight loss. BMI 27.46 kg/(m^2) 3. Vitamin B12 deficiency - ICD9: 266.2, ICD10: E53.8 rx refilled stable - CYANOCOBALAMIN (VIT B-12) 1,000 MCG/ML INJECTION SOLUTION - VITAMIN B12 4. Other 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, unspecified chronicity (HCC) - ICD9: 415.19, ICD10: I26.99 Hx of PE and hypercoagulability, continue chronic anticoagulation 5. Chronic anticoagulation - ICD9: V58.61, ICD10: Z79.01 Hx of PE and hypercoagulability, continue chronic anticoagulation 6. Chronic midline low 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 - ICD9: 724.2, 338.29, ICD10: M54.50, G89.29 Chronic, stable, continue exercises, stretches, prn use of lidocaine patches, heat /ice therapy and massage 7. Degeneration of intervertebral disc of lumbar region, unspecified whether pain present - ICD9: 722.52, ICD10: M51.369 See above 8. Cancer of peritoneum (HCC) - ICD9: 158.9, ICD10: C48.2 F/u with HemOnc 9. Urinary incontinence, unspecified type - ICD9: 788.30, ICD10: R32 D/c oxybutynin, trial of a different medication 10. 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, 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, on [facility] insulin pump (HCC) (HCC) - ICD9: 250.91, V45.85, ICD10: E10.8, Z96.41 Has insulin pump, managed by [employer] 11. Hypothyroidism, acquired - ICD9: 244.9, ICD10: E03.9 - Instructed patient on importance of taking on an empty stomach either first thing in the morning or at bedtime. 12. Right hip pain - ICD9: 719.45, ICD10: M25.551 Hx of, chronic, secondary to OA - OXYBUTYNIN CHLORIDE ER 15 MG TABLET,EXTENDED RELEASE 24 HR 13. Injury of right hip, subsequent encounter - ICD9: V58.89, 959.6, ICD10: S79.911D See above - OXYBUTYNIN CHLORIDE ER 15 MG TABLET,EXTENDED RELEASE 24 HR 14. Vitamin C deficiency - ICD9: 267, ICD10: E54 Check vitamin C levels, has had mild iron deficiency and easy bruising - VITAMIN C 15. Vitamin D deficiency - ICD9: 268.9, ICD10: E55.9 Continue supplement - VITAMIN D 25 HYDROXY 16. Urge incontinence - ICD9: 788.31, ICD10: N39.41 D/c oxybutynin, trial of a different medication - TOLTERODINE ER 2 MG CAPSULE,EXTENDED RELEASE 24 HR Melchor Washington DO documented in this encounter [facility] 04-09-2024 Telephone encounter Note Pt. informed. [facility] 04-09-2024 Miscellaneous Notes Pt. informed. Continue same dose Recheck INR 4 weeks Melchor Washington DO Last INR: INR 3.2 04/08/2024 Current dose of coumadin is: 2 mg daily. Previous INR (date and result): 3.6 03/14/24 Additional Clinical Information or narrative: no documented in this encounter [facility] 04-08-2024 Telephone encounter Note Continue same dose Recheck INR 4 weeks Melchor Washington DO [facility] 04-08-2024 Telephone encounter Note Last INR: INR 3.2 04/08/2024 Current dose of coumadin is: 2 mg daily. Previous INR (date and result): 3.6 03/14/24 Additional Clinical Information or narrative: no [facility] 03-25-2024 History of Present illness Narrative Patient presents for B-12 injection. Denies any problems at this time. Patient instructed on any SE of medication, verbalized understanding and agreed to proceed with treatment. Tolerated injection well. Shilpi Orellana LPN documented in this encounter [facility] 03-22-2024 Telephone encounter Note Pt. informed via My Chart. [facility] 03-22-2024 Miscellaneous Notes Pt. informed via My Chart. Please inform patient that her vitamin C levels are low. Needs to be taking vitamin C 500 mg 1-2 times a day with a meal. Other labs are stable Melchor Washington DO documented in this encounter [facility] 03-21-2024 Telephone encounter Note Please inform patient that her vitamin C levels are low. Needs to be taking vitamin C 500 mg 1-2 times a day with a meal. Other labs are stable Melchor Washington DO [facility] 03-17-2024 History of Present illness Narrative encounter is being closed at this time due to level is no longer valid due to patient had inr repeated on 03/13/24 patient had inr completed at [facility] patients inr is 1.6 (patients inr range is 2.0-3.0) patient is currently taking 2mg daily patients last dose change was on 02/12/24 due to a high level of 4.2 (dose at that time was 3mg Wed and 2mg all other days and antibiotics) patient has had no changes in medication except for coumadin and off antibiotics and no change in diet recommend: patient change coumadin to 3mg Wed and 2mg all other days and recheck in 2 weeks with port flush and labs patient has been scheduled for a 2 week follow up inr via lab on 03/11/24 please review and advise on recommendation patient only needs called if provider does not agree with recommendation documented in this encounter [facility] 03-14-2024 Telephone encounter Note Spoke with ptb gave information provided.Pt voices understanding. [facility] 03-14-2024 Miscellaneous Notes Spoke with ptb gave information provided.Pt voices understanding. No changes needed, continue same rx Melchor Washington DO Last INR: INR 3.6 03/13/2024 Current dose of coumadin is: 2 mg daily. Previous INR (date and result): 02/26/24 1.6 Additional Clinical Information or narrative: no documented in this encounter [facility] 03-14-2024 Telephone encounter Note No changes needed, continue same rx Melchor Washington DO [facility] 03-14-2024 Telephone encounter Note Last INR: INR 3.6 03/13/2024 Current dose of coumadin is: 2 mg daily. Previous INR (date and result): 02/26/24 1.6 Additional Clinical Information or narrative: no [facility] 03-11-2024 Telephone encounter Note PSS- please schedule patient on the lab/port schedule for , 03/13/2024 @ 11:00 for a prothrombin time. Patient is aware of appointment date and time. Elizabeth Holden LPN [facility] 03-11-2024 Miscellaneous Notes PSS- please schedule patient on the lab/port schedule for 03/13/2024 @ 11:00 for a prothrombin time. Patient is aware of appointment date and time. Elizabeth Holden LPN documented in this encounter [facility] 02-26-2024 History of Present illness Narrative Patient presents for B-12 injection. Denies any problems at this time. Patient instructed on any SE of medication, verbalized understanding and agreed to proceed with treatment. Tolerated injection well. Shilpi Orellana LPN documented in this encounter [facility] 02-20-2024 Telephone encounter Note Order placed. Kapil Giullen APRN.[employer] [facility] 02-20-2024 Miscellaneous Notes Order placed. Kapil Guillen APRN.[employer] documented in this encounter [facility] 02-19-2024 Telephone encounter Note Called pt and notified of need to come back in for the urine culture. Pt reminded to make sure she uses the wipes for a clean catch sample this time. Pt verbalizes understanding. [facility] 02-19-2024 Miscellaneous Notes Called pt and notified of need to come back in for the urine culture. Pt reminded to make sure she uses the wipes for a clean catch sample this time. Pt verbalizes understanding. Yes, please have patient come in if she is able and give a urine sample for the urine culture. If there is no infection, would advise a consult to urology. If positive for infection, will prescribe an antibiotic. If she develops any symptoms in the meantime, to notify the office. To ED for fever >100, vomiting, severe back or abdominal pain. Ashley Mathews PA-C 02/19/2024 Pt calling in asking about her urinalysis results from 02/11. States she just saw her results on her MyChart and saw that they were worse than the urine test she had on 01/14. Pt states she took her antibiotic that Dr. Washington prescribed for her and wants to know why it looks worse. Asked pt if she completed her antibiotic. Pt states she took 5 pills and there were 5 pills left in the bottle. She can't find the bottle now. In looking at the RX for the Nitrofurantoin on pt's past med list, pt was to take 1 capsule twice a day for 5 days. Pt states her bottle didn't say twice a day, that it only said 1 per day. Also asked pt when she did her urine sample, did she use the wipes they gave her. Pt states they did not give her any wipes for this sample. She used the wipes for the sample in Jan. Pt denies any symptoms of UTI at this time-denies burning, pain, urgency or frequency. Pt is concerned that blood showed up again in her urine and it was more than last time. Pt has seen urology in the past. Called and spoke with lab as pt was to have a urine culture on 02/11 as well. Per laboratory worker, the culture was cancelled because there wasn't enough urine in the sample. Lab states the urine culture order is still good if the provider wants pt to come in and only have the culture done. documented in this encounter [facility] 02-19-2024 Telephone encounter Note Yes, please have patient come in if she is able and give a urine sample for the urine culture. If there is no infection, would advise a consult to urology. If positive for infection, will prescribe an antibiotic. If she develops any symptoms in the meantime, to notify the office. To ED for fever >100, vomiting, severe back or abdominal pain. Ashley Mathews PA-C 02/19/2024 [facility] Work Phone: 02-18-2024 Telephone encounter Note Pt calling in asking about her urinalysis results from 02/11. States she just saw her results on her MyChart and saw that they were worse than the urine test she had on 01/14. Pt states she took her antibiotic that Dr. Washington prescribed for her and wants to know why it looks worse. Asked pt if she completed her antibiotic. Pt states she took 5 pills and there were 5 pills left in the bottle. She can't find the bottle now. In looking at the RX for the Nitrofurantoin on pt's past med list, pt was to take 1 capsule twice a day for 5 days. Pt states her bottle didn't say twice a day, that it only said 1 per day. Also asked pt when she did her urine sample, did she use the wipes they gave her. Pt states they did not give her any wipes for this sample. She used the wipes for the sample in Jan. Pt denies any symptoms of UTI at this time-denies burning, pain, urgency or frequency. Pt is concerned that blood showed up again in her urine and it was more than last time. Pt has seen urology in the past. Called and spoke with lab as pt was to have a urine culture on 02/11 as well. Per laboratory worker, the culture was cancelled because there wasn't enough urine in the sample. Lab states the urine culture order is still good if the provider wants pt to come in and only have the culture done. [facility] 02-15-2024 Telephone encounter Note Patient notified of results and provider's instructions. Patient verbalizes understanding. Dina Miles RN [facility] 02-15-2024 Miscellaneous Notes Patient notified of results and provider's instructions. Patient verbalizes understanding. Dina Miles RN Hold coumadin for 3 days and recheck INR on Sunday She may be vitamin c or iron deficiency with the bruising increase, please have her get these levels checked Melchor Washington DO Last INR: INR 4.2 02/12/2024 Current dose of coumadin is: 3 mg Wed and 2mg all other days . Last date of dose change: Unknown. Previous INR (date and result): 2.4 01/29/2024 Additional Clinical Information or narrative: Patient states that bruising has lasted longer than normal. Patient states that she fell a month ago and bruising lasted 3-4 weeks. Patient was on Macrobid beginning january. documented in this encounter [facility] 02-15-2024 Telephone encounter Note Hold coumadin for 3 days and recheck INR on Sunday She may be vitamin c or iron deficiency with the bruising increase, please have her get these levels checked Melchor Washington DO [facility] 02-13-2024 Telephone encounter Note Last INR: INR 4.2 02/12/2024 Current dose of coumadin is: 3 mg Wed and 2mg all other days . Last date of dose change: Unknown. Previous INR (date and result): 2.4 01/29/2024 Additional Clinical Information or narrative: Patient states that bruising has lasted longer than normal. Patient states that she fell a month ago and bruising lasted 3-4 weeks. Patient was on Macrobid beginning january. [facility] 02-12-2024 History of Present illness Narrative Patient is here for IVAD port flush/blood draw per [facility] protocol. IVAD is located in right upper chest. Site cleansed with Chloraprep IVAD accessed with a #20 gauge 3/4 non-coring Gripper needle Flush with 5cc's Normal Saline. Blood Return: Good. 10 cc's blood aspirated and discarded. Blood drawn for CMP, PT, CA125. Flushed with: 20 ml Normal Saline. Non-coring needle removed. Paper tape applied to puncture site. Site negative for redness, edema or tenderness. Patient tolerated procedure well. documented in this encounter [facility] 01-29-2024 History of Present illness Narrative Noted, agree Melchor Washington DO patient had inr completed at [facility] patients inr is 2.4 (patients inr range is 2.0-3.0) patient is currently taking 3mg Wed and 2mg all other days patients last dose change unknown patient has had no changes in medication and no missed doses and no change in diet Advised patient to continue on the same dose(s) and that they would only be contacted regarding dosage and follow up instructions after review with provider, if a change is needed. Written instructions given and patient verbalized understanding. Presently scheduled in 4 weeks (02/26/24) for follow up INR. documented in this encounter [facility] 01-29-2024 History of Present illness Narrative Patient presents for B-12 injection. Denies any problems at this time. Patient instructed on any SE of medication, verbalized understanding and agreed to proceed with treatment. Tolerated injection well. Shilpi Orellana LPN documented in this encounter [facility] 01-18-2024 History of Present illness Narrative CC: Jerica Azul is a 83 year old female who presents to the office for follow up HPI: Bladder leaking and urgency and frequency, no hematuria or flank pain, chronic, present the last 4-5 years. Has been seen by Urologist for this and treated for urinary tract infection but doesn't feel this really solved her symptoms. She has also done pelvic floor exercises and symptoms persist. Struggles with holding urine/urinary retention. She feels that the increased dose of oxybutynin to 10 mg a day has been helpful pH, Urine Date Value Ref Range Status 01/15/2024 6.0 <8.5 Final Specific [place], Ur Date Value Ref Range Status 01/15/2024 1.010 1.005 - 1.030 Final Glucose, Urine Date Value Ref Range Status 01/15/2024 1+ (A) Negative Final Bilirubin, Urine Date Value Ref Range Status 01/15/2024 Negative Negative Final Ketones, Urine Date Value Ref Range Status 01/15/2024 Negative Negative Final Hemoglobin/Blood,Ur Date Value Ref Range Status 01/15/2024 Trace (A) Negative Final Protein, Urine Date Value Ref Range Status 01/15/2024 Negative Negative Final Urobilinogen Date Value Ref Range Status 01/15/2024 0.2 EU/dL 0.2-1.0 EU/dL Final Nitrites Date Value Ref Range Status 01/15/2024 Negative Negative Final WBC, Urine Date Value Ref Range Status 01/15/2024 0-5 /HPF 0-5 /HPF Final HPL, taking lipitor as prescribed, no SE with medication Type 1 diabetes, seen by home health billing specialist, still using her insulin pump and CGM is new D7, A1c at 6.8% - sees Dr.Toni Ross Vitamin B12 deficiency, taking her B12 injections with benefit Mood, overall stable Hypothyroidism, taking her synthroid as prescribed Hx of primary peritoneal adenocarcinoma and CA125 levels are stable. No new changes in symptoms. Chronic low back pain, DDD and DJD lumbar spine, no recent falls or instability but does feel that tylenol doesn't work well for pain control. Using intermittent ice and heat and topical salanpas as well PAST MEDICAL HISTORY Diagnosis Date Absence of menstruation DDD (degenerative disc disease), lumbar Disorder of bone and cartilage, unspecified 07/24/02 Nondiabetic proliferative retinopathy mild-last visit 08/13/[address] 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) Insulin Pump, age 11 diagnosis Umbilical hernia without mention of obstruction or gangrene Urinary tract infection, site not specified Recurrent UTI's PAST SURGICAL HISTORY Procedure Laterality Date APPENDECTOMY DELIVERY ONLY , low cervical COLONOSCOPY FLX DX W/COLLJ SPEC WHEN PFRMD 01/2002 and 11/2006 Colonoscopy INSJ TUNNELED CTR VAD W/SUBQ PORT AGE 5 YR/> Right 05/15/2016 LIG/TRNSXJ FLP TUBE ABDL/VAG APPR UNI/BI PAST SURGICAL HISTORY OF Right carpal tunnel PAST SURGICAL HISTORY OF Bilateral cataract sx PAST SURGICAL HISTORY OF torticollis PAST SURGICAL HISTORY OF 09/10/2008 PROCEDURE CANCELLED- LEFT- UNABLE TO VISUALIZE- PAST SURGICAL HISTORY OF Bilateral Lasers in both eyes PAST SURGICAL HISTORY OF 05/13/2021 Diagnostic laparoscopy RPR UMBILICAL HRNA 5 YRS/> REDUCIBLE 10/17/2004 Hernia repair, umbilical, removal of internal insulin punmp SKIN BX, 1 LESION 05/13/2008 Punch bx skin of forehead TONSILLECTOMY PRIMARY/SECONDARY <AGE 12 Tonsillectomy TOTAL ABDOMINAL HYSTERECT W/WO RMVL TUBE OVARY 11/30/2006 Hysterectomy, KHOI, BSO US BREAST NEEDLE CORE BIOPSY LT 09/17/[address] Social History: Social History Tobacco Use Smoking status: Former Types: Cigarettes Smokeless tobacco: Never Tobacco comments: quit age 26 Vaping Use Vaping status: Never Used Substance Use Topics Alcohol use: No Drug use: No FAMILY HISTORY Problem Relation Age of Onset Breast Cancer Mother diagnosed age 68 Heart Father No Known Problems Sister No Known Problems Sister other (agent orange) Brother No Known Problems Maternal Grandmother No Known Problems Maternal Grandfather No Known Problems Paternal Grandmother No Known Problems Paternal Grandfather No Known Problems Daughter No Known Problems Daughter Breast Cancer Maternal Aunt diagnosed age 35-40 No Known Problems Grandchild other (ovarian cancer) Other no known family history other (Cornea problem- led to loss of vision) Other cousin No Known Problems Granddaughter Current Outpatient prescriptions: oxybutynin ER (DITROPAN XL) 15 mg 24 hr Extended Rel Tab^Take 1 tablet by mouth once daily.^Disp: 90 tablet^Rfl: 3 nitrofurantoin monohydrate and macrocrystal (MACROBID) 100 mg capsule^Take 1 capsule by mouth two times a day with meals for 5 days.^Disp: 10 capsule^Rfl: 0 levothyroxine (SYNTHROID) 112 mcg tablet^Take 1 tablet by mouth once daily.^Disp: 90 tablet^Rfl: 3 warfarin (COUMADIN) 2 mg tablet^2mg Mon,Fri and 3mg all other days or as directed^Disp: 90 tablet^Rfl: 3 insulin lispro-aabc (LYUMJEV) 100 unit/mL solution^90 Units.^Disp: ^Rfl: metoprolol succinate ER (TOPROL XL) 25 mg 24 hr tablet^Take 1 tablet by mouth once daily.^Disp: 90 tablet^Rfl: 3 atorvastatin (LIPITOR) 10 mg tablet^Take 1 tablet by mouth once daily.^Disp: 90 tablet^Rfl: 3 warfarin (COUMADIN) 1 mg tablet^2mg Mon,Fri and 3mg all other days or as directed^Disp: 90 tablet^Rfl: 3 ergocalciferol 50,000 unit capsule (VITAMIN D2, DRISDOL)^TAKE 2 CAPSULES BY MOUTH ONCE A WEEK^Disp: 24 capsule^Rfl: 3 oxybutynin XL (DITROPAN XL) 10 mg 24 hr tablet^Take 1 tablet by mouth once daily. For bladder incontinence^Disp: 90 tablet^Rfl: 1 mupirocin (BACTROBAN) 2 % ointment^Apply to affected area once daily. Until skin sore healed on arm^Disp: 15 g^Rfl: 1 diclofenac (VOLTAREN) 1 % topical gel^Apply 2 g to affected area four times daily as needed. Knee pain for arthritis^Disp: 120 g^Rfl: 3 estradiol (ESTRACE) 0.01 % (0.1 mg/gram) vaginal cream^APPLY A FINGERTIP AMOUNT EVERY OTHER DAY DIRECTED^Disp: 85 g^Rfl: 3 Urine Glucose-Ketones Test (KETO-DIASTIX) strp^1 Strip as needed.^Disp: 90 Strip^Rfl: 1 0.9 % SODIUM CHLORIDE (0.9% NACL)^Access implanted vascular access device (IVAD) as needed for flush, blood draw or treatment. Flush IVAD with 10-20 mL NS every 4 weeks and PRN when IVAD not in use.^Disp: 2 Syringe^Rfl: 50 heparin 100 unit/mL injection^Access implanted vascular access device (IVAD) as needed for flush, blood draw or treatment. Before de-accessing port, flush with 10-20ml normal saline and follow with 5 mL heparin (100 units/mL) (if no heparin allergy). De-access port on treatment completion.^Disp: 5 mL^Rfl: 25 Insulin Pump Syringe ([employer] SYR RES 3CC/22GX1/2) 3 mL misc^Change site every 3 days^Disp: 30 Each^Rfl: 3 COMPOUNDED PRESCRIPTION^[employer]ensors change sensor every 6 days^Disp: 2 Container^Rfl: 3 COMPOUNDED PRESCRIPTION^Insulin pump supplies faxed to [facility]^Disp: 90 Each^Rfl: 3 glucagon, human recombinant, (GLUCAGON EMERGENCY) 1 mg injection^Inject 1 mg subcutaneously. INJECT FOR INSULIN SHOCK^Disp: 1 Each^Rfl: 1 ubidecarenone(CO Q-10 100 MG CAP)^Take one(1) capsule daily. ^Disp: ^Rfl: 0 Allergies: ALLERGIES Allergen Reactions Demerol [Meperidine* GI Upset Versed [Midazolam H* GI Upset Codeine loses consciousness;can take percocet with no problem Lisinopril Diarrhea Percocet [Oxycodone* Mental Status Change, GI Upset ROS: See HPI PE: 01/18/24 1025 BP: 122/80 Pulse: 64 Resp: 20 Temp: 36.4 C (97.5 F) TempSrc: Left Tympanic Weight: 72.5 kg (159 lb 13.3 oz) Gen: A&OX3, NAD, non-toxic appearing HEENT: PERRLA, EOMs intact b/l, nares without drainage, pharynx without erythema, exudate, lesions, or drainage. Uvula midline. MMM Neck: No LAD, no thyromegaly, no meningismus. CV: RRR, no murmur Lungs: CTA b/l, no wheezing Skin: scars on arms without signs of infection. Scattered solar lentigos and seborrheic keratoses No edema, legs Abdomen, mildly distended, normal BS, ND Thoracic kyphosis Gait slowed but stable Insulin pump in abdominal wall Cgm left thigh anterior Non focal neurologic exam ASSESSMENT/PLAN: 1. Right hip pain - ICD9: 719.45, ICD10: M25.551 (primary diagnosis) Consider PHYSICAL THERAPY and orthopedics follow up - OXYBUTYNIN CHLORIDE ER 15 MG TABLET,EXTENDED RELEASE 24 HR 2. Injury of right hip, subsequent encounter - ICD9: V58.89, 959.6, ICD10: S79.911D Consider PHYSICAL THERAPY and orthopedics follow up - OXYBUTYNIN CHLORIDE ER 15 MG TABLET,EXTENDED RELEASE 24 HR 3. Microscopic hematuria - ICD9: 599.72, ICD10: R31.29 Labs as ordered Start on antibiotic Recheck urine culture and UA in 2-3 weeks. - URINALYSIS, WITH MICROSCOPIC - URINE CULTURE - NITROFURANTOIN MONOHYDRATE & MACROCRYSTAL 100 MG ORAL CAP 4. 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, 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, on [facility] insulin pump (HCC) (HCC) - ICD9: 250.91, V45.85, ICD10: E10.8, Z96.41 Managed by [employer] 5. Pure hypercholesterolemia - ICD9: 272.0, ICD10: E78.00 - continue same mediations 6. Chronic anticoagulation - ICD9: V58.61, ICD10: Z79.01 Continue warfarin 7. Vitamin B12 deficiency - ICD9: 266.2, ICD10: E53.8 Continue supplement 8. History of ovarian cancer - ICD9: V10.43, ICD10: Z85.43 Hx of, follow up with Hem Onc 9. Essential hypertension, benign - ICD9: 401.1, ICD10: I10 - Controlled - Continue current medications - Recommend home blood pressure monitoring, to bring results to next visit - Encouraged sodium restriction, DASH or Mediterranean diet - Recommend regular aerobic exercise Melchor Washington DO To ER if develops chest pain, shortness of breath, or severe worsening of symptoms. Discussed risks, benefits, alternatives, and potential side effects of medications. Patient expressed understanding and agreed with the plan. Melchor Washington DO [address] [place] [address] documented in this encounter [facility] 01-18-2024 Telephone encounter Note Pt. informed at visit, [facility] 01-18-2024 Miscellaneous Notes Pt. informed at visit, Per note, pt requests INR medication and information be sent to her [employer]. Dr. Washington's instructions sent via [employer]. Please confirm that pt reads them. Left a message for pt to call the office and let us know she got this message. Marycruz Pepe LPN Pt. informed detailed message left on VM. She is to return call and verify message. Continue same dose, recheck INR 1 week Melchor Washington DO Last INR: INR 1.9 01/15/2024 Current dose of coumadin is: 2 mg daily. Last date of dose change: 11/10. Previous INR (date and result): 12/10 2.3 Additional Clinical Information or narrative: no documented in this encounter [facility] 01-17-2024 Telephone encounter Note Per note, pt requests INR medication and information be sent to her [employer]. Dr. Washington's instructions sent via [employer]. Please confirm that pt reads them. [facility] 01-16-2024 Telephone encounter Note Left a message for pt to call the office and let us know she got this message. Marycruz Pepe LPN [facility] 01-15-2024 Telephone encounter Note Pt. informed detailed message left on VM. She is to return call and verify message. [facility] 01-15-2024 Telephone encounter Note Continue same dose, recheck INR 1 week Melchor Washington DO [facility] 01-15-2024 Telephone encounter Note Last INR: INR 1.9 01/15/2024 Current dose of coumadin is: 2 mg daily. Last date of dose change: 11/10. Previous INR (date and result): 12/10 2.3 Additional Clinical Information or narrative: no [facility] 01-02-2024 History of Present illness Narrative Patient presents for B-12 injection. Denies any problems at this time. Patient instructed on any SE of medication, verbalized understanding and agreed to proceed with treatment. Tolerated injection well. Pt to also receive COVID vaccine. Shilpi Orellana LPN documented in this encounter [facility] 12-25-2023 Telephone encounter Note Patient active MyChart. Patient notified via [employer] message. Tonja Turcios MA [facility] 12-25-2023 Miscellaneous Notes Patient active MyChart. Patient notified via [employer] message. Tonja Turcios MA Please inform patient that her recent labs were overall stable Melchor Washington DO documented in this encounter [facility] 12-25-2023 Telephone encounter Note Please inform patient that her recent labs were overall stable Melchor Washington DO [facility] 12-24-2023 Telephone encounter Note Prescription Refill Information The patient has been identified by name and date of : Yes Caregiver verified no other encounters exist for this prescription request: Yes Caregiver confirmed with patient/requestor that no other refills are due, in the near future, with this provider at this time: Yes The last office visit in the department: 10/23/23 Does the patient have a future office visit with this provider/department: Yes 01/18/24 Requested Prescriptions Pending Prescriptions Disp Refills levothyroxine (SYNTHROID) 112 mcg tablet 90 tablet 3 Sig: Take 1 tablet by mouth once daily. Eliza Turner LPN December 24, 2023 3:05 PM [facility] 12-24-2023 Miscellaneous Notes Prescription Refill Information The patient has been identified by name and date of : Yes Caregiver verified no other encounters exist for this prescription request: Yes Caregiver confirmed with patient/requestor that no other refills are due, in the near future, with this provider at this time: Yes The last office visit in the department: 10/23/23 Does the patient have a future office visit with this provider/department: Yes 01/18/24 Requested Prescriptions Pending Prescriptions Disp Refills levothyroxine (SYNTHROID) 112 mcg tablet 90 tablet 3 Sig: Take 1 tablet by mouth once daily. Eliza Turner LPN December 24, 2023 3:05 PM documented in this encounter [facility] 12-17-2023 Telephone encounter Note Another detailed message of below left on pt identified VM. Advised to call office if she has any questions. Venus Og MA [facility] 12-17-2023 Miscellaneous Notes Another detailed message of below left on pt identified VM. Advised to call office if she has any questions. Venus Og MA Left detailed message on secure VM Alondra Coombs MA No changes with coumadin needed Recheck INR in 2 weeks Melchor Washington DO Last INR: INR 2.3 12/11/2023 Current dose of coumadin is: 2 mg daily. Last date of dose change: Previous INR (date and result): 11/12 3.5 11/25 2.9 Additional Clinical Information or narrative: no documented in this encounter [facility] 12-13-2023 Telephone encounter Note Left detailed message on secure Alondra Coombs MA [facility] 12-12-2023 Telephone encounter Note No changes with coumadin needed Recheck INR in 2 weeks Melchor Washington DO [facility] 12-12-2023 Telephone encounter Note Last INR: INR 2.3 12/11/2023 Current dose of coumadin is: 2 mg daily. Last date of dose change: Previous INR (date and result): 11/12 3.5 11/25 2.9 Additional Clinical Information or narrative: no [facility] 12-06-2023 History of Present illness Narrative Patient presents for B-12 injection. Denies any problems at this time. Patient instructed on any SE of medication, verbalized understanding and agreed to proceed with treatment. Tolerated injection well. Pt to also receive flu vaccine. Shilpi Orellana LPN documented in this encounter [facility] 11-26-2023 History of Present illness Narrative Noted, agree with below Melchor Washington DO patient had inr completed at [facility] patients inr is 2.9 (patients inr range is 2.0-3.0) patient is currently taking 2mg daily patients last dose change was on 11/13/23 due to a high level of 3.5 (dose at that time was 3mg Sun and 2mg all other days) patient has had no changes in medication except for coumadin and no missed doses and no change in diet Advised patient to continue on the same dose(s) and that they would only be contacted regarding dosage and follow up instructions after review with provider, if a change is needed. Written instructions given and patient verbalized understanding. Presently scheduled in 2 weeks with reyna angulo (12/13/23) for follow up INR since this is the first normal reading since dose change documented in this encounter [facility] 11-23-2023 Telephone encounter Note The patient has been identified by name and date of : Yes Pharmacy Caregiver verified no other encounters exist for this prescription request: Yes Caregiver confirmed with patient/requestor that no other refills are due, in the near future, with this provider at this time: Yes The last office visit in the department: 10/23/2023 Does the patient have a future office visit with this provider/department: Yes 12/06/2023 Requested Prescriptions Pending Prescriptions Disp Refills warfarin (COUMADIN) 2 mg tablet 90 tablet 3 Simg Mon,Fri and 3mg all other days or as directed Lina Fitzgerald LPN November 23, 2023 10:18 AM [facility] 11-23-2023 Miscellaneous Notes The patient has been identified by name and date of : Yes Pharmacy Caregiver verified no other encounters exist for this prescription request: Yes Caregiver confirmed with patient/requestor that no other refills are due, in the near future, with this provider at this time: Yes The last office visit in the department: 10/23/2023 Does the patient have a future office visit with this provider/department: Yes 12/06/2023 Requested Prescriptions Pending Prescriptions Disp Refills warfarin (COUMADIN) 2 mg tablet 90 tablet 3 Simg Mon,Fri and 3mg all other days or as directed Lina Fitzgerald LPN November 23, 2023 10:18 AM documented in this encounter [facility] 11-13-2023 Telephone encounter Note INR Clinic not open next week. Pt. refused lab. Made appointment in 2 weeks. [facility] 11-13-2023 Miscellaneous Notes INR Clinic not open next week. Pt. refused lab. Made appointment in 2 weeks. Decrease dose to 2 mg daily and recheck INR 1 week Melchor Washington DO Last INR: INR 3.5 11/13/2023 Current dose of coumadin is: 3mg Wed and 2mg all other days and recheck in 1 week . Last date of dose change: 11/08/23. Previous INR (date and result): 4.0 11/08/23 Additional Clinical Information or narrative: no documented in this encounter [facility] 11-13-2023 Telephone encounter Note Decrease dose to 2 mg daily and recheck INR 1 week Melchor Washington DO [facility] 11-13-2023 Telephone encounter Note Last INR: INR 3.5 11/13/2023 Current dose of coumadin is: 3mg Wed and 2mg all other days and recheck in 1 week . Last date of dose change: 11/08/23. Previous INR (date and result): 4.0 11/08/23 Additional Clinical Information or narrative: no [facility] 11-08-2023 History of Present illness Narrative Agree with below recommendations. Kapil Guillen APRN.FERNY patient had inr completed at [facility] patients inr is 4.0 (patients inr range is 2.0-3.0) patient is currently taking 3mg Tues,Thurs and 2mg all other days patients last dose change was on 11/02/23 due to a high level of 5.1 (dose at that time was 2mg Mon,Wed,Fri and 3mg all other days) patient has had no changes in medication except for coumadin and no missed doses and no change in diet recommend: patient change coumadin 3mg Wed and 2mg all other days and recheck in 1 week patient has been scheduled for a 1 week follow up inr on 11/13/23 please review and advise on recommendation patient only needs called if provider does not agree with recommendation documented in this encounter [facility] 11-08-2023 History of Present illness Narrative Patient presents for B-12 injection. Denies any problems at this time. Patient instructed on any SE of medication, verbalized understanding and agreed to proceed with treatment. Tolerated injection well. Shilpi Orellana LPN documented in this encounter [facility] 11-02-2023 History of Present illness Narrative Agree with below Melchor Washington DO patient had inr completed at [facility] patients inr is 5.1 (patients inr range is 2.0-3.0) patient is currently taking 2mg Mon,Wed,Fri and 3mg all other days patients last dose change was on 10/11/23 due to a high level of 5.2 (dose at that time was 2mg Th,Sat and 3mg all other days) patient has had no changes in medication and no missed doses and no change in diet recommend: patient hold coumadin today then change coumadin 3mg Tues, Thurs and 2mg all other days and recheck in in 1 week patient has been scheduled for a 1 week follow up inr on 11/08/23 please review and advise on recommendation patient only needs called if provider does not agree with recommendation documented in this encounter [facility] 10-29-2023 Telephone encounter Note Spoke with patient and she did receive voicemail with coumadin instructions and has been following them. Pt reports she gets INR checked Wednesday 11/01. Reports she also found her medication. Alondra Coombs MA [facility] 10-29-2023 Miscellaneous Notes Spoke with patient and she did receive voicemail with coumadin instructions and has been following them. Pt reports she gets INR checked Wednesday 11/01. Reports she also found her medication. Alondra Coombs MA Current TE open regarding medication issue. Will touch base with pt to make sure she received updated dosing instructions as left on her VM. Can then close encounter. Ember Grant MA Attempted to contact pt x 3 with no answer. Detailed VM left on pt's identified voicemail of information below. Ask pt to call back and let us know she got coumadin instructions and when to do your next INR check. Marycruz Pepe LPN Message left for pt to call back for results. Venus Og MA Tracker and med list updated. Increase regimen to 2 mg on Sunday and Sunday only and 3 mg all other days. Repeat INR in 1 week. Thank you, Roberta Gibson APRN.[employer] Last INR: INR 1.8 10/16/2023 Current dose of coumadin is: 2 mg sun, sun, sun, 3 mg all others. Last date of dose change: 10/11/23. Previous INR (date and result): 10/11/23 INR 5.2 Additional Clinical Information or narrative: no documented in this encounter [facility] 10-29-2023 Telephone encounter Note Spoke with patient and she did receive voicemail with coumadin instructions. Pt reports she gets INR checked Wednesday 11/01. Reports she also found her medication. Alondra Coombs MA [facility] 10-29-2023 Miscellaneous Notes Spoke with patient and she did receive voicemail with coumadin instructions. Pt reports she gets INR checked Wednesday 11/01. Reports she also found her medication. Alondra Coombs MA STAFF ONLY: After this can we verify pt received her new INR dosing from 10/16/23. Multiple calls have been made with no call back received. Detailed message was left with dosage change. Just to verify so we can close 10/16/23 anticoagulation encounter as it's still open. Ember Grant MA Images from the original note were not included. Please see pt message and advise-- I am out of warfarin 1mg, it says in my [facility] that I can t get that any more! Why? I thought it was taken care of when I was there tues, but [facility] t sen me any. What am I supposed to do? Try to sit thx warfarin 2mg in half? INR instructions from 10/17-- Roberta Gibson APRN.[employer] routed this conversation to [facility] Roberta Jaffe APRN.[employer] AD 10/18/23 11:33 AM Note Increase regimen to 2 mg on Sunday and Sunday only and 3 mg all other days. Repeat INR in 1 week. Thank you, Roberta Gibson APRN.[employer] Sent instructions via [employer] message as well to make sure she has been following instructions. Office has contacted her multiple via phone call with no response. documented in this encounter [facility] 10-26-2023 Telephone encounter Note STAFF ONLY: After this can we verify pt received her new INR dosing from 10/16/23. Multiple calls have been made with no call back received. Detailed message was left with dosage change. Just to verify so we can close 10/16/23 anticoagulation encounter as it's still open. Ember Grant MA [facility] 10-26-2023 Telephone encounter Note Current TE open regarding medication issue. Will touch base with pt to make sure she received updated dosing instructions as left on her VM. Can then close encounter. Ember Grant MA [facility] 10-26-2023 Telephone encounter Note Images from the original note were not included. Please see pt message and advise-- I am out of warfarin 1mg, it says in my [facility] that I can t get that any more! Why? I thought it was taken care of when I was there tues, but [facility] t [facility] any. What am I supposed to do? Try to sit thx warfarin 2mg in half? INR instructions from 10/17-- Roberta Gibson APRN.[employer] routed this conversation to [facility] Roberta Jaffe APRN.[employer] AD 10/18/23 11:33 AM Note Increase regimen to 2 mg on Sunday and Sunday only and 3 mg all other days. Repeat INR in 1 week. Thank you, Roberta Gibson APRN.[employer] Sent instructions via [employer] message as well to make sure she has been following instructions. Office has contacted her multiple via phone call with no response. [facility] 10-26-2023 Telephone encounter Note Turned into TE Alondra Coombs MA [facility] 10-26-2023 Miscellaneous Notes Turned into TE Alondra Coombs MA documented in this encounter [facility] 10-25-2023 Telephone encounter Note Faxed to [facility] Coombs MA [facility] 10-25-2023 Miscellaneous Notes Faxed to [facility] Coom[place], [place] Will fax to [facility] as soon as provider signs office note. Pt was informed of this at office visit today. Will notify her when consult faxed. Alondra Coombs MA Patient calling to attempt to schedule orthopaedic consultation sooner than 12/14/23. No availability within [facility] prior to 12/14/23. Patient declined to travel outside of [facility] for care. Patient is wanting to be seen within a month. Patient did confirm when asked if she attempted to contact local non-[facility] facilities. Please contact patient to advise on plan of care. documented in this encounter [facility] 10-25-2023 Telephone encounter Note Attempted to contact pt x 3 with no answer. [facility] 10-23-2023 Telephone encounter Note Will fax to [facility] as soon as provider signs office note. Pt was informed of this at office visit today. Will notify her when consult faxed. Alondra Coombs MA [facility] 10-23-2023 Telephone encounter Note Patient calling to attempt to schedule orthopaedic consultation sooner than 12/14/23. No availability within [facility] prior to 12/14/23. Patient declined to travel outside of [facility] for care. Patient is wanting to be seen within a month. Patient did confirm when asked if she attempted to contact local non-[facility] facilities. Please contact patient to advise on plan of care. [facility] 10-23-2023 History of Present illness Narrative Chief Complaint Patient presents with: ER F/U: [facility] 10/20 for Right hip pain, nausea, vomiting, Er prescribed tramadol, Er notes in scanned docs. HPI Jerica Azul is a 83 year old female who presents here today for Above Complaints.. Was seen at [facility] ER on 10/20 for right hip pain. Imaging was negative for fracture, but did note degenerative changes. She was prescribed Tramadol and given referral for orthopedics. Here today for f/u. Currently: 1-2 weeks ago ran into door frame with her hip. Until 4 days ago pain had resolved, but pain returned. Was at bridge at the [facility] and was doing a lot of up and down movement, then took 10 minutes to get down the ramp afterward, couldn't get up the steps to her house. Has been using a walker. Tramadol did help the pain a lot, but is making her nauseated, vomited x1. Urinary incontinence-has been doing some isometric exercises. Continues to have urinary incontinence, worse in the mornings when getting up out of bed. Does get up at least 1-2 times during the night to urinate. Has during the day but not as much. Past medical history, appointments, medications, allergies reviewed. Previous Medical History PAST MEDICAL HISTORY No date: Absence of menstruation No date: DDD (degenerative disc disease), lumbar 07/24/02: Disorder of bone and cartilage, unspecified No date: Nondiabetic proliferative retinopathy Comment: mild-last visit 08/13/[address] 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) Comment: Insulin Pump, age 11 diagnosis No date: Umbilical hernia without mention of obstruction or gangrene No date: Urinary tract infection, site not specified Comment: Recurrent UTI's Previous Surgical History PAST SURGICAL HISTORY No date: APPENDECTOMY No date: DELIVERY ONLY Comment: , low cervical 01/2002 and 11/2006: COLONOSCOPY FLX DX W/COLLJ SPEC WHEN PFRMD Comment: Colonoscopy 05/15/2016: INSJ TUNNELED CTR VAD W/SUBQ PORT AGE 5 YR/>; Right No date: LIG/TRNSXJ FLP TUBE ABDL/VAG APPR UNI/BI No date: PAST SURGICAL HISTORY OF; Right Comment: carpal tunnel No date: PAST SURGICAL HISTORY OF; Bilateral Comment: cataract sx No date: PAST SURGICAL HISTORY OF Comment: torticollis 09/10/2008: PAST SURGICAL HISTORY OF Comment: PROCEDURE CANCELLED- LEFT- UNABLE TO VISUALIZE- No date: PAST SURGICAL HISTORY OF; Bilateral Comment: Lasers in both eyes 05/13/2021: PAST SURGICAL HISTORY OF Comment: Diagnostic laparoscopy 10/17/2004: RPR UMBILICAL HRNA 5 YRS/> REDUCIBLE Comment: Hernia repair, umbilical, removal of internal insulin punmp 05/13/2008: SKIN BX, 1 LESION Comment: Punch bx skin of forehead No date: TONSILLECTOMY PRIMARY/SECONDARY <AGE 12 Comment: Tonsillectomy 11/30/2006: TOTAL ABDOMINAL HYSTERECT W/WO [facility] TUBE OVARY Comment: Hysterectomy, KHOI, BSO 09/17/2008: US BREAST NEEDLE CORE BIOPSY LT Comment: Left axillary calcific LN Family History FAMILY HISTORY Problem Relation Age of Onset Breast Cancer Mother diagnosed age 68 Heart Father No Known Problems Sister No Known Problems Sister other (agent orange) Brother No Known Problems Maternal Grandmother No Known Problems Maternal Grandfather No Known Problems Paternal Grandmother No Known Problems Paternal Grandfather No Known Problems Daughter No Known Problems Daughter Breast Cancer Maternal Aunt diagnosed age 35-40 No Known Problems Grandchild other (ovarian cancer) Other no known family history other (Cornea problem- led to loss of vision) Other cousin No Known Problems Granddaughter Patient Allergies ALLERGIES Allergen Reactions Demerol [Meperidine* GI Upset Versed [Midazolam H* GI Upset Codeine loses consciousness;can take percocet with no problem Lisinopril Diarrhea Percocet [Oxycodone* Mental Status Change, GI Upset Current Medications Current Outpatient Medications on File Prior to Visit Medication Sig insulin lispro-aabc (LYUMJEV) 100 unit/mL solution 90 Units. traMADol (ULTRAM) 50 mg tablet EVERY 4 HOURS NEEDED as needed for Pain warfarin (COUMADIN) 2 mg tablet 2mg Mon,Fri and 3mg all other days or as directed warfarin (COUMADIN) 1 mg tablet 2mg Mon,Fri and 3mg all other days or as directed ergocalciferol 50,000 unit capsule (VITAMIN D2, DRISDOL) TAKE 2 CAPSULES BY MOUTH ONCE A WEEK oxybutynin XL (DITROPAN XL) 10 mg 24 hr tablet Take 1 tablet by mouth once daily. For bladder incontinence mupirocin (BACTROBAN) 2 % ointment Apply to affected area once daily. Until skin sore healed on arm atorvastatin (LIPITOR) 10 mg tablet Take 1 tablet by mouth once daily. levothyroxine (SYNTHROID) 112 mcg tablet Take 1 tablet by mouth once daily. metoprolol succinate ER (TOPROL XL) 25 mg 24 hr tablet TAKE 1 TABLET DAILY diclofenac (VOLTAREN) 1 % topical gel Apply 2 g to affected area four times daily as needed. Knee pain for arthritis estradiol (ESTRACE) 0.01 % (0.1 mg/gram) vaginal cream APPLY A FINGERTIP AMOUNT EVERY OTHER DAY DIRECTED Urine Glucose-Ketones Test (KETO-DIASTIX) strp 1 Strip as needed. heparin 100 unit/mL injection Access implanted vascular access device (IVAD) as needed for flush, blood draw or treatment. Before de-accessing port, flush with 10-20ml normal saline and follow with 5 mL heparin (100 units/mL) (if no heparin allergy). De-access port on treatment completion. Insulin Pump Syringe (MINIMED SYR RES 3CC/22GX1/2) 3 mL misc Change site every 3 days COMPOUNDED PRESCRIPTION Enlite Sensors change sensor every 6 days COMPOUNDED PRESCRIPTION Insulin pump supplies faxed to [facility] Medical glucagon, human recombinant, (GLUCAGON EMERGENCY) 1 mg injection Inject 1 mg subcutaneously. INJECT FOR INSULIN SHOCK ubidecarenone(CO Q-10 100 MG CAP) Take one(1) capsule daily. warfarin (COUMADIN) 1 mg tablet 2 mg Wed, 3 mg all other days or as directed cyanocobalamin 1,000 mcg/mL Inject 1 mL intramuscularly once every month. Syringe with Needle, Safety (BD INTEGRA) 3 mL 23 gauge x 1 1 Each once every month. acetaminophen (TYLENOL EXTRA STRENGTH) 500 mg tablet Take 2 tablets by mouth every 6 hours as needed for pain. HUMALOG U-100 INSULIN 100 unit/mL injection Inject subcutaneously, through the insulin pump, max 85 units daily (Patient not taking: Reported on 10/23/2023) blood sugar diagnostic (CONTOUR NEXT TEST STRIPS) test strip Dx: Dm1, use of insulin, up to 4 strips per day, Use as instructed. blood-glucose meter, wireless (CONTOUR NEXT LINK) kit 1 Device as directed. Dx: type 1 diabetes, insulin 0.9 % SODIUM CHLORIDE (0.9% NACL) Access implanted vascular access device (IVAD) as needed for flush, blood draw or treatment. Flush IVAD with 10-20 mL NS every 4 weeks and PRN when IVAD not in use. vitamin b complex(B COMPLEX 1 TAB) Take one(1) tablet daily. Current Facility-Administered Medications on File Prior to Visit Medication cyanocobalamin 1,000 mcg injection Social History Social History Tobacco Use Smoking status: Former Years: 4 Types: Cigarettes Smokeless tobacco: Never Tobacco comments: quit age 26 Vaping Use Vaping Use: Never used Substance Use Topics Alcohol use: No Drug use: No Review of Symptoms REVIEW OF SYSTEMS See HPI, otherwise negative EXAM: BP 132/86 (BP Site: Left Arm, BP Position: Sitting, BP Cuff Size: Regular Adult) Pulse 80 Temp 36.4 C (97.5 F) Resp 18 SpO2 97% General Appearance: Well appearing, alert, in no acute distress, well-hydrated, well nourished. and Wheelchair. Lungs: Lungs clear to auscultation. No wheezing, rhonchi, rales.. Heart: RRR without murmur, gallop, or rubs. No ectopy. Musculoskeletal: tenderness to left anterior and later hip with movement and palpation, examination limited. Peripheral Pulses: Normal. Neurologic: altered gait, unable to walk without walker, is in wheelchair in office today. Psychiatric: cooperative, frustrated. Health Maintenance List Urine Albumin:Creatinine Ratio due on 08/10/2023 DTaP,Tdap,Td Vaccine(3 - Td or Tdap) due on 08/17/2023 HbA1C due on 09/12/2023 Covid-19 Vaccine( season) due on 07/16/2024 Influenza Vaccine(1) due on 11/11/2023 LDL Cholesterol due on 03/21/2024 Dilated Retinal Exam due on 03/28/2024 Diabetic Foot Exam due on 06/26/2024 Depression Screening due on 07/16/2024 Anxiety Screening due on 07/16/2024 RSV Vaccine Completed Shingrix Vaccine Completed Pneumococcal Vaccine: 65+ Completed Bone Density Screening Addressed HPV Vaccine Aged Out Colorectal Cancer Screening Discontinued Advance Directive Discussion Discontinued Data reviewed Previous records, office notes, OARRS report PDMP website checked and validated. All prescriptions have been APPROPRIATELY filled. No suspicious activity was identified. 10/23/2023 by Kapil Guillen CNP. ASSESSMENT/PLAN: 1. Right hip pain - ICD9: 719.45, ICD10: M25.551 (primary diagnosis) Requesting referral to [facility], does not want to see PA or OPTICAL SYSTEMS ENGINEER Continue with walker for safety - CONSULT TO ORTHOPAEDICS - TRAMADOL 50 MG TABLET 2. Injury of right hip, subsequent encounter - ICD9: V58.89, 959.6, ICD10: S79.911D Requesting referral to [facility], does not want to see PA or OPTICAL SYSTEMS ENGINEER Continue with walker for safety - CONSULT TO ORTHOPAEDICS - TRAMADOL 50 MG TABLET 3. Urinary incontinence, unspecified type - ICD9: 788.30, ICD10: R32 Suspect secondary to stress and urge. Since this is notably worse in the mornings, recommend limiting water intake at bedtime and during the night. Continue Kegel exercises. - OXYBUTYNIN CHLORIDE ER 15 MG TABLET,EXTENDED RELEASE 24 HR 4. Pure hypercholesterolemia - ICD9: 272.0, ICD10: E78.00 - ATORVASTATIN 10 MG TABLET Kapil Guillen APRN.FERNY documented in this encounter [facility] 10-22-2023 History of Present illness Narrative I was out of this office during this time period Agree with above Melchor Washington DO patient had inr completed at [facility] patients inr is 2.5 (patients inr range is 2.0-3.0) patient is currently taking 2mg Mon,Wed,Fri and 3mg all other days patients last dose change was on 10/11/23 due to a high level of 5.2 (dose at that time was 2mg Th,Sat and 3mg all other days) patient has had no changes in medication except for coumadin and no uninstructed missed doses and no change in diet Advised patient to continue on the same dose(s) and that they would only be contacted regarding dosage and follow up instructions after review with provider, if a change is needed. Written instructions given and patient verbalized understanding. Presently scheduled in 2 weeks (11/02/23) for follow up INR. documented in this encounter [facility] 10-19-2023 Telephone encounter Note Detailed VM left on pt's identified voicemail of information below. Ask pt to call back and let us know she got coumadin instructions and when to do your next INR check. Marycruz Pepe LPN [facility] 10-18-2023 Telephone encounter Note Message left for pt to call back for results. Venus Og MA Tracker and med list updated. [facility] 10-18-2023 Telephone encounter Note Increase regimen to 2 mg on Sunday and Sunday only and 3 mg all other days. Repeat INR in 1 week. Thank you, Roberta Gibson APRN.LABORER [employer]YRUP [employer]ACHINE [facility] 10-16-2023 Telephone encounter Note Last INR: INR 1.8 10/16/2023 Current dose of coumadin is: 2 mg sun, sun, sun, 3 mg all others. Last date of dose change: 10/11/23. Previous INR (date and result): 10/11/23 INR 5.2 Additional Clinical Information or narrative: no [facility] 10-11-2023 History of Present illness Narrative Agree with recommendation below. Thank you, Roberta Gibson APRN.LABORER [employer]YRUP [employer]ACHINE patient had inr completed at [facility] patients inr is 5.2 (patients inr range is 2.0-3.0) patient is currently taking 2mg ,Sat and 3mg all other days patients last dose change was on 07/31/23 due to a low level of 1.3 (dose at that time was 3mg Mon,Wed,Fri and 2mg all other days) patient has had no changes in medication and no missed doses and no change in diet recommend: patient hold coumadin for 2 days and then restart on Sunday with 2mg Mon,Wed and 3mg all other days and recheck in 1 week patient has been scheduled for a 1 week follow up inr on 10/18/23 please review and advise on recommendation patient only needs called if provider does not agree with recommendation documented in this encounter [facility] 10-11-2023 History of Present illness Narrative Patient presents for B-12 injection. Denies any problems at this time. Patient instructed on any SE of medication, verbalized understanding and agreed to proceed with treatment. Tolerated injection well. Shilpi Orellana LPN documented in this encounter [facility] 09-26-2023 Telephone encounter Note Pt. informed via my My Chart [facility] 09-26-2023 Miscellaneous Notes Pt. informed via my My Chart Please let patient know that her renal and liver function are normal and her CA 125 is stable Melchor Washington DO documented in this encounter [facility] 09-26-2023 Telephone encounter Note Please let patient know that her renal and liver function are normal and her CA 125 is stable Melchor Cha DO Felix [facility] 09-18-2023 Telephone encounter Note Spoke with pt and information listed below given. Pt verbalizes understanding. Marycruz Pepe LPN [facility] 09-18-2023 Miscellaneous Notes Spoke with pt and information listed below given. Pt verbalizes understanding. Marycruz Pepe LPN Phoned patient left message to return call and ask to speak to a nurse for coumadin instructions. Hold x 1 day, then 2mg T, Thurs, Sat, and 3mg all other days Recheck one week Last INR: INR 3.8 09/18/2023 Current dose of coumadin is: 2mg Thurs, Sat, and 3mg all other days. Last date of dose change: 07/31/2023. Previous INR (date and result): 3.1 08/21/2023 Additional Clinical Information or narrative: no documented in this encounter [facility] 09-18-2023 Telephone encounter Note Phoned patient left message to return call and ask to speak to a nurse for coumadin instructions. [facility] 09-18-2023 Telephone encounter Note Hold x 1 day, then 2mg T, Thurs, Sat, and 3mg all other days Recheck one week [facility] Work Phone: 09-18-2023 Telephone encounter Note Last INR: INR 3.8 09/18/2023 Current dose of coumadin is: 2mg Thurs, Sat, and 3mg all other days. Last date of dose change: 07/31/2023. Previous INR (date and result): 3.1 08/21/2023 Additional Clinical Information or narrative: no [facility] 09-12-2023 History of Present illness Narrative Agree with below. Kapil Guillen APRN.LABORER [employer]YR[employer] MACHINE patient had inr completed at [facility] patients inr is 2.6 (patients inr range is 2.0-3.0) patient is currently taking 2mg Thurs,Sat and 3mg all other days patients last dose change was on 07/31/23 due to a low level of 1.3 (dose at that time was 3mg Mon,Wed,Fri and 2mg all other days) patient has had no changes in medication and no missed doses and no change in diet Advised patient to continue on the same dose(s) and that they would only be contacted regarding dosage and follow up instructions after review with provider, if a change is needed. Written instructions given and patient verbalized understanding. Presently scheduled in 4 weeks (10/11/23) for follow up INR. documented in this encounter [facility] 09-12-2023 History of Present illness Narrative Patient presents for B-12 injection. Denies any problems at this time. Patient instructed on any SE of medication, verbalized understanding and agreed to proceed with treatment. Tolerated injection well. Shilpi Orellana LPN documented in this encounter [facility] 09-10-2023 Telephone encounter Note [facility]-07/17/23 Labs-08/21/23Jan-10/23/23 Eliza Turner LPN [facility] 09-10-2023 Miscellaneous Notes [facility]-07/17/23 Labs-08/21/23Jan-10/23/23 Eliza Turner LPN documented in this encounter [facility] 08-30-2023 Telephone encounter Note Called and updated patient on Voicemail, patient identified self on recording. Carmelita Winters LPN August 30, 2023 9:45 AM [facility] 08-30-2023 Miscellaneous Notes Called and updated patient on Voicemail, patient identified self on recording. Carmelita Winters LPN August 30, 2023 9:45 AM Please inform patient that her recent labs were all stable Melchor Washington DO documented in this encounter [facility] 08-29-2023 Telephone encounter Note Please inform patient that her recent labs were all stable Melchor Washington DO [facility] 08-21-2023 Telephone encounter Note TC to patient who verbalized understanding. Next INR date updated on anticoagulation tracker. GELACIO Banuelos [facility] 08-21-2023 Miscellaneous Notes TC to patient who verbalized understanding. Next INR date updated on anticoagulation tracker. GELACIO Banuelos Continue current Coumadin dose, recheck INR in 3 weeks. Kapil Guillen APRN.[employer]ER [employer]ACH[employer] Last INR: INR 3.1 08/21/2023 Current dose of coumadin is: 2 mg (2 mg x 1) every Josette, Sat; 3 mg (2 mg x 1 and 1 mg x 1) all other days . Last date of dose change: 07/30. Previous INR (date and result): 1.3 Additional Clinical Information or narrative: no documented in this encounter [facility] 08-21-2023 Telephone encounter Note Continue current Coumadin dose, recheck INR in 3 weeks. Kapil Guillen APRN.LABORER [employer]ACHINE [facility] Work Phone: 08-21-2023 Telephone encounter Note Last INR: INR 3.1 08/21/2023 Current dose of coumadin is: 2 mg (2 mg x 1) every Josette, Sat; 3 mg (2 mg x 1 and 1 mg x 1) all other days . Last date of dose change: 07/30. Previous INR (date and result): 1.3 Additional Clinical Information or narrative: no [facility] 08-16-2023 History of Present illness Narrative Agree with below recommendations. Kapil Guillen APRN.CNP patient had inr completed at [facility] patients inr is 2.6 (patients inr range is 2.0-3.0) patient is currently taking 2mg Thurs,Sat and 3mg all other days patients last dose change was on 07/31/23 due to a low level of 1.3 (dose at that time was 3mg Mon,Wed,Fri and 2mg all other days) patient has had no changes in medication and no missed doses and no change in diet Advised patient to continue on the same dose(s) and that they would only be contacted regarding dosage and follow up instructions after review with provider, if a change is needed. Written instructions given and patient verbalized understanding. Presently scheduled in 4 weeks (09/12/23) for follow up INR. documented in this encounter [facility] 08-16-2023 History of Present illness Narrative Patient presents for B-12 injection. Denies any problems at this time. Patient instructed on any SE of medication, verbalized understanding and agreed to proceed with treatment. Tolerated injection well. Shilpi Orellana LPN documented in this encounter [facility] 07-31-2023 History of Present illness Narrative Agree with below Melchor Washington DO patient had inr completed at [facility] patients inr is 1.3 (patients inr range is 2.0-3.0) patient is currently taking 3mg Mn,Wed, Fri and 2mg all other days patients last dose change was on 07/24/23 due to a low level (dose at that time was 3mg Wed and 2mg all other days) patient has had no changes in medication except for coumadin and no missed doses and no change in diet recommend: patient change coumadin to 2mg Th,Sat and 3mg all other days and recheck in 2 weeks patient has been scheduled for a 2 week follow up inr on 08/16/23 please review and advise on recommendation documented in this encounter [facility] 07-26-2023 Telephone encounter Note Patient notified of results, verbalizes understanding of instructions. Patient confirms to taking 2 MG daily 3 MG on SUN. Patient advised: missed a couple doses since last INR check 06/19/23. Scheduled for 1 week f/u in 07/31/23. Tracker updated. Tonja Turcios MA [facility] 07-26-2023 Miscellaneous Notes Patient notified of results, verbalizes understanding of instructions. Patient confirms to taking 2 MG daily 3 MG on SUN. Patient advised: missed a couple doses since last INR check 06/19/23. Scheduled for 1 week f/u in 07/31/23. Tracker updated. Tonja Turcios MA Left message to return call Alondra Coombs MA Please call patient to make sure she has been taking her coumadin as prescribed below If so, then needs to increase dose to 3 mg on Mon, Wed, Fri. 2 mg the other days of the week, recheck INR 1 week Melchor Washington DO Current INR: 1.3 07/24/23 Current dose of coumadin is: 3 MG Wednesday & 2 MG all the other days. Previous INR (date and result): 1.9 06/19/23 documented in this encounter [facility] 07-25-2023 Telephone encounter Note Left message to return call Alondra Coombs MA [facility] 07-25-2023 Telephone encounter Note Please call patient to make sure she has been taking her coumadin as prescribed below If so, then needs to increase dose to 3 mg on Mon, Wed, Fri. 2 mg the other days of the week, recheck INR 1 week Melchor Washington DO [facility] 07-24-2023 Telephone encounter Note Current INR: 1.3 07/24/23 Current dose of coumadin is: 3 MG Wednesday & 2 MG all the other days. Previous INR (date and result): 1.9 06/19/23 [facility] 07-24-2023 History of Present illness Narrative Patient is here for IVAD port flush/blood draw per Nursing Godfrey protocol. IVAD is located in right upper chest. Site cleansed with Chloraprep IVAD accessed with a #20 gauge 3/4 non-coring Gripper needle Flush with 5cc's Normal Saline. Blood Return: Good. 10 cc's blood aspirated and discarded. Blood drawn for CBC and CMP. Flushed with: 20 ml Normal Saline. Non-coring needle removed. Paper tape applied to puncture site. Site negative for redness, edema or tenderness. Patient tolerated procedure well. documented in this encounter [facility] 07-17-2023 History of Present illness Narrative CC: Jerica Azul is a 83 year old female who presents to the office for follow up HPI: Bladder leaking and urgency and frequency, no hematuria or flank pain, chronic, present the last 4-5 years. Has been seen by Urologist for this and treated for urinary tract infection but doesn't feel this really solved her symptoms. She has also done pelvic floor exercises and symptoms persist. Struggles with holding urine/urinary retention. She feels that the increased dose of oxybutynin to 10 mg a day has been helpgul HPL, taking lipitor as prescribed, no SE with medication Type 1 diabetes, seen by home health billing specialist, still using her insulin pump and CGM is new D7, A1c at 6.8% Vitamin B12 deficiency, taking her B12 injections with benefit Mood, overall stable Hypothyroidism, taking her synthroid as prescribed Hx of primary peritoneal adenocarcinoma and CA125 levels are stable. No new changes in symptoms. Chronic low back pain, DDD and DJD lumbar spine, no recent falls or instability but does feel that tylenol doesn't work well for pain control. Using intermittent ice and heat and topical salanpas as well PAST MEDICAL HISTORY Diagnosis Date Absence of menstruation DDD (degenerative disc disease), lumbar Disorder of bone and cartilage, unspecified 07/24/02 Nondiabetic proliferative retinopathy mild-last visit 08/13/[address] 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) Insulin Pump, age 11 diagnosis Umbilical hernia without mention of obstruction or gangrene Urinary tract infection, site not specified Recurrent UTI's PAST SURGICAL HISTORY Procedure Laterality Date APPENDECTOMY DELIVERY ONLY , low cervical COLONOSCOPY FLX DX W/COLLJ SPEC WHEN PFRMD 01/2002 and 11/2006 Colonoscopy INSJ TUNNELED CTR VAD W/SUBQ PORT AGE 5 YR/> Right 05/15/2016 LIG/TRNSXJ FLP TUBE ABDL/VAG APPR UNI/BI PAST SURGICAL HISTORY OF Right carpal tunnel PAST SURGICAL HISTORY OF Bilateral cataract sx PAST SURGICAL HISTORY OF torticollis PAST SURGICAL HISTORY OF 09/10/2008 PROCEDURE CANCELLED- LEFT- UNABLE TO VISUALIZE- PAST SURGICAL HISTORY OF Bilateral Lasers in both eyes PAST SURGICAL HISTORY OF 05/13/2021 Diagnostic laparoscopy RPR UMBILICAL HRNA 5 YRS/> REDUCIBLE 10/17/2004 Hernia repair, umbilical, removal of internal insulin punmp SKIN BX, 1 LESION 05/13/2008 Punch bx skin of forehead TONSILLECTOMY PRIMARY/SECONDARY <AGE 12 Tonsillectomy TOTAL ABDOMINAL HYSTERECT W/WO RMVL TUBE OVARY 11/30/2006 Hysterectomy, KHOI, BSO US BREAST NEEDLE CORE BIOPSY LT 09/17/[address] Current Outpatient Medications Medication Sig oxybutynin XL (DITROPAN XL) 10 mg 24 hr tablet Take 1 tablet by mouth once daily. For bladder incontinence mupirocin (BACTROBAN) 2 % ointment Apply to affected area once daily. Until skin sore healed on arm ergocalciferol 50,000 unit capsule (VITAMIN D2, DRISDOL) TAKE 2 CAPSULES BY MOUTH ONCE A WEEK warfarin (COUMADIN) 2 mg tablet 3 mg every Sun and Sunday, 2 mg all other days or as directed atorvastatin (LIPITOR) 10 mg tablet Take 1 tablet by mouth once daily. levothyroxine (SYNTHROID) 112 mcg tablet Take 1 tablet by mouth once daily. metoprolol succinate ER (TOPROL XL) 25 mg 24 hr tablet TAKE 1 TABLET DAILY warfarin (COUMADIN) 1 mg tablet 2 mg Wed, 3 mg all other days or as directed warfarin (COUMADIN) 1 mg tablet 2 mg Wed, 3 mg all other days or as directed cyanocobalamin 1,000 mcg/mL Inject 1 mL intramuscularly once every month. Syringe with Needle, Safety (BD INTEGRA) 3 mL 23 gauge x 1 1 Each once every month. acetaminophen (TYLENOL EXTRA STRENGTH) 500 mg tablet Take 2 tablets by mouth every 6 hours as needed for pain. diclofenac (VOLTAREN) 1 % topical gel Apply 2 g to affected area four times daily as needed. Knee pain for arthritis HUMALOG U-100 INSULIN 100 unit/mL injection Inject subcutaneously, through the insulin pump, max 85 units daily estradiol (ESTRACE) 0.01 % (0.1 mg/gram) vaginal cream APPLY A FINGERTIP AMOUNT EVERY OTHER DAY DIRECTED blood sugar diagnostic (CONTOUR NEXT TEST STRIPS) test strip Dx: Dm1, use of insulin, up to 4 strips per day, Use as instructed. Urine Glucose-Ketones Test (KETO-DIASTIX) strp 1 Strip as needed. blood-glucose meter, wireless (CONTOUR NEXT LINK) kit 1 Device as directed. Dx: type 1 diabetes, insulin 0.9 % SODIUM CHLORIDE (0.9% NACL) Access implanted vascular access device (IVAD) as needed for flush, blood draw or treatment. Flush IVAD with 10-20 mL NS every 4 weeks and PRN when IVAD not in use. heparin 100 unit/mL injection Access implanted vascular access device (IVAD) as needed for flush, blood draw or treatment. Before de-accessing port, flush with 10-20ml normal saline and follow with 5 mL heparin (100 units/mL) (if no heparin allergy). De-access port on treatment completion. Insulin Pump Syringe (MINIMED SYR RES 3CC/22GX1/2) 3 mL misc Change site every 3 days COMPOUNDED PRESCRIPTION Enlite Sensors change sensor every 6 days COMPOUNDED PRESCRIPTION Insulin pump supplies faxed to [facility] Medical glucagon, human recombinant, (GLUCAGON EMERGENCY) 1 mg injection Inject 1 mg subcutaneously. INJECT FOR INSULIN SHOCK vitamin b complex(B COMPLEX 1 TAB) Take one(1) tablet daily. ubidecarenone(CO Q-10 100 MG CAP) Take one(1) capsule daily. Current Facility-Administered Medications Medication Dose Route Frequency cyanocobalamin 1,000 mcg injection 1,000 mcg INTRAMUSCULAR As Directed ALLERGIES Allergen Reactions Demerol [Meperidine* GI Upset Versed [Midazolam H* GI Upset Codeine loses consciousness;can take percocet with no problem Lisinopril Diarrhea Percocet [Oxycodone* Mental Status Change, GI Upset Social History Tobacco Use Smoking status: Former Years: 4 Types: Cigarettes Smokeless tobacco: Never Tobacco comments: quit age 26 Vaping Use Vaping Use: Never used Substance Use Topics Alcohol use: No Drug use: No ROS: See HPI PE: BP 136/80 Pulse 64 Temp (Src) 97.3 (Left Tympanic) Resp 16 Wt 162 lb (73.5kg) Gen: A&OX3, NAD, non-toxic appearing HEENT: PERRLA, EOMs intact b/l, nares without drainage, pharynx without erythema, exudate, lesions, or drainage. Uvula midline. MMM Neck: No LAD, no thyromegaly, no meningismus. CV: RRR, no murmur Lungs: CTA b/l, no wheezing Skin: scars on arms without signs of infection. Scattered solar lentigos and seborrheic keratoses No edema, legs Abdomen, mildly distended, normal BS, ND Thoracic kyphosis Gait slowed but stable Insulin pump in abdominal wall Cgm left thigh anterior Non focal neurologic exam ASSESSMENT/PLAN: 1. Hypothyroidism, acquired - ICD9: 244.9, ICD10: E03.9 (primary diagnosis) - Instructed patient on importance of taking on an empty stomach either first thing in the morning or at bedtime. 2. Malignant neoplasm of bilateral ovaries (HCC) - ICD9: 183.0, ICD10: C56.3 F/u with HEMONC, stable - CA 125 - PROTHROMBIN TIME - COMPREHENSIVE METABOLIC PANEL 3. Chronic midline low 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 - ICD9: 724.2, 338.29, ICD10: M54.50, G89.29 Xray as ordered Consider increasing strength of pain medication to prn Tramadol if worsening pain - XR LUMBAR GENERAL 3V AP/LAT/L5-S1 4. DDD (degenerative disc disease), lumbar - ICD9: 722.52, ICD10: M51.36 Xray as ordered Consider increasing strength of pain medication to prn Tramadol if worsening pain - XR LUMBAR GENERAL 3V AP/LAT/L5-S1 5. Vitamin B12 deficiency - ICD9: 266.2, ICD10: E53.8 Injections as given chronically 6. Chronic anticoagulation - ICD9: V58.61, ICD10: Z79.01 Continue warfarin 7. 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 Dyslipidemia - ICD9: 272.4, ICD10: E78.5 - Controlled - Continue current medications - Counseled on healthy diet and regular exercise Melchor Washington DO Return if no improvement. Follow up with Melchor Washington DO. To ER if develops chest pain, shortness of breath. Discussed risks, benefits, alternatives, and potential side effects of medications. Patient/Guardian expressed understanding and agreed with the plan. See patient instructions. Melchor Washington DO [address] [place] [address] documented in this encounter [facility] 07-17-2023 Telephone encounter Note Addressed at OV with PCP today. Ashley Mathews PA-C [facility] 07-17-2023 Miscellaneous Notes Addressed at OV with PCP today. Ashley Mathews PA-C Patient reports she is scheduled with hematology today, to have them draw CA 125 (gets monthly) and INR. Hematology tells her pcp did not place orders. Patient asking pcp to place orders Asking office to phone her at [phone] to let her know the orders are in. Patient's appt is today at 1:30 pm and doesn't want to waste her time coming in if hematology can't do the draw. Advised patient there is a standing order for INR that does not until 2024. Patient reports hemtology tells her there is no standing order for INR. documented in this encounter [facility] 07-17-2023 Telephone encounter Note Patient reports she is scheduled with hematology today, to have them draw CA 125 (gets monthly) and INR. Hematology tells her pcp did not place orders. Patient asking pcp to place orders Asking office to phone her at [phone] to let her know the orders are in. Patient's appt is today at 1:30 pm and doesn't want to waste her time coming in if hematology can't do the draw. Advised patient there is a standing order for INR that does not until 2024. Patient reports hemtology tells her there is no standing order for INR. [facility] 07-06-[address] Washington has always previously ordered. We only see her to draw labs. Thank you! [facility] 07-06-[address] Washington has always previously ordered. We only see her to draw labs. Thank you! This should be ordered by oncology. Kapil Guillen APRN.FERNY Pt came in twice this week requesting her CA125 lab. Orders not placed. She will reschedule for next week. Please place lab order if appropriate. Thank you! documented in this encounter [facility] 06-22-2023 Miscellaneous Notes Pt. informed detailed message left on VM. She is to call back and verify message. No changes to coumadin dosing. Recheck INR 1 week Melchor Washington DO Last INR: INR 1.9 06/19/2023 Current dose of coumadin is: patient is currently taking 3mg Wed and 2mg all other days. Previous INR (date and result): 2.0 05/08 . Additional Clinical Information or narrative: no documented in this encounter [facility] 06-21-2023 History of Present illness Narrative Patient presents for B-12 injection. Denies any problems at this time. Patient instructed on any SE of medication, verbalized understanding and agreed to proceed with treatment. Tolerated injection well. Shilpi Orellana LPN documented in this encounter [facility] 06-18-2023 Miscellaneous Notes TC with no answer. Left that requested lab order was placed, provided office number for any further questions. GELACIO Banuelos Lab ordered. Please let her know. Thank you, Roberta Gibson APRN.[employer] Pt is calling to report she has an appt tomorrow to get CA 125 BLD done and was checking to see if order was in. Do not see the order. Pt is requesting test be ordered today. Parul Stanley LPN documented in this encounter [facility] 06-14-2023 Telephone encounter Note This should be ordered by oncology. Kapil Guillen APRN.[employer] [facility] Work Phone: 06-14-2023 Nurse Note No labs entered. No charges today. Phone note sent to Felix's office requesting orders. Pt will come in next week. documented in this encounter [facility] 06-14-2023 Telephone encounter Note Pt came in twice this week requesting her CA125 lab. Orders not placed. She will reschedule for next week. Please place lab order if appropriate. Thank you! [facility] 06-13-2023 History of Present illness Narrative Pt. Refused blood draw d/t no orders for CA125 lab. Notified Dr. Washington of pt requesting and pt. Is rescheduling lab draw for tomorrow. documented in this encounter [facility] 05-31-2023 Nurse Note Agree with recommendations. Kapil Guillen APRN.[employer] documented in this encounter [facility] 05-31-2023 History of Present illness Narrative patient had inr completed at [facility] patients inr is 2.5 (patients inr range is 2.0-3.0) patient is currently taking 3mg Wed and 2mg all other days patients last dose change was on 05/01/23 due to a high level of 3.3 (dose at that time was 3mg Mon,Fri and 2mg all other days) patient has had no changes in medication and no missed doses and no change in diet Advised patient to continue on the same dose(s) and that they would only be contacted regarding dosage and follow up instructions after review with provider, if a change is needed. Written instructions given and patient verbalized understanding. Presently scheduled in 3 weeks (06/21/23 - due to patient has another appt also this day) for follow up INR. documented in this encounter [facility] 05-23-2023 History of Present illness Narrative Patient presents for B-12 injection. Denies any problems at this time. Patient instructed on any SE of medication, verbalized understanding and agreed to proceed with treatment. Tolerated injection well. Shilpi Orellana LPN documented in this encounter [facility] 05-17-2023 Miscellaneous Notes Patient returned call and went over results, notes from Dr Washington with understanding. Left message to return call Alondra Coombs Please inform patient that her labs are stable CA 125 level is at 21 Melchor Washington DO documented in this encounter [facility] 05-16-2023 Miscellaneous Notes Pt. informed. Continue current dose of coumadin, recheck INR 2 weeks Melchor Washington DO Last INR: INR 2.2 05/16/2023 Current dose of coumadin is: patient is currently taking 3mg Wed and 2mg all other days. Previous INR (date and result): 2.0 05/08 Additional Clinical Information or narrative: no documented in this encounter [facility] 05-08-2023 History of Present illness Narrative Agree with below Melchor Washington DO patient had inr completed at [facility] patients inr is 2.0 (patients inr range is 2.0-3.0) patient is currently taking 3mg Wed and 2mg all other days patients last dose change was on 05/01/23 due to a high level of 3.3 (dose at that time was 3mg Mon,Fri and 2mg all other days) patient has had no changes in medication except for coumadin and no missed doses and no change in diet Advised patient to continue on the same dose(s) and that they would only be contacted regarding dosage and follow up instructions after review with provider, if a change is needed. Written instructions given and patient verbalized understanding. Presently scheduled in 2 weeks (05/23/23) for follow up INR since this is the first normal reading since dose change documented in this encounter [facility] 05-01-2023 History of Present illness Narrative PATIENT NOTIFIED OF INFORMATION Agree with below Melchor Washington DO patient had inr completed at [facility] patients inr is 3.3 (patients inr range is 2.0-3.0) patient is currently taking 3mg Mon,Fri and 2mg all other days patients last dose change was on 04/24/23 due to a high level of 3.3 (dose at that time was 3mg Mon,Wed,Fri and 2mg all other days) patient has had no changes in medication except for coumadin and no missed doses and no change in diet recommend: patient change coumadin to 3mg Wed and 2mg all other days and recheck in 1 week patient has been scheduled for a 1 week follow up inr on 05/08/23 please review and advise on recommendation documented in this encounter [facility] 04-24-2023 History of Present illness Narrative PATIENT NOTIFIED OF INFORMATION Agree with below Melchor Washington DO patient had inr completed at [facility] patients inr is 3.3 (patients inr range is 2.0-3.0) patient is currently taking 3mg Mon,Wed,Fri and 2mg all other days patients last dose change was on 12/05/22 due to a low level of 1.9 (dose at that time was 3mg Wed,Fri and 2mg all other days) patient has had no changes in medication and no missed doses and no change in diet recommend: patient change coumadin to 3mg Mon,Fri and 2mg all other days and recheck in 1 week patient has been scheduled for a 1 week follow up inr on 05/01/23 please review and advise on recommendation documented in this encounter [facility] 04-24-2023 History of Present illness Narrative Patient presents for B-12 injection. Denies any problems at this time. Patient instructed on any SE of medication, verbalized understanding and agreed to proceed with treatment. Tolerated injection well. Shilpi Orellana LPN documented in this encounter [facility] 04-18-2023 Miscellaneous Notes Pt returned call and given provider's message below with verbalized understanding. Pt agreeable. Left message to please call and speak with nurse. Tracker was updated. Goal is 2-3 Hold today then 3 mg MF, 2 mg a day rest of the week Recheck one week Last INR: INR 3.3 04/18/2023 Current dose of coumadin is: 3 mg (2 mg x 1 and 1 mg x 1) every Mon, Wed, Fri; 2 mg (2 mg x 1) all other days. Last date of dose change: Previous INR (date and result): 03/28 2.8 Additional Clinical Information or narrative: no documented in this encounter [facility] 04-17-2023 History of Present illness Narrative CC: Jerica Azul is a 83 year old female who presents to the office for follow up HPI: Bladder leaking and urgency and frequency, no hematuria or flank pain, chronic, present the last 3-4 years. Has been seen by Urologist for this and treated for urinary tract infection but doesn't feel this really solved her symptoms. She has also done pelvic floor exercises and symptoms persist. Struggles with holding urine/urinary retention. She has been using the oxybutynin 5 mg a day in the afternoon with some benefit but feels that the dose needs to be increased HPL, taking lipitor as prescribed, no SE with medication Type 1 diabetes, seen by home health billing specialist, still using her insulin pump and CGM is new D7, A1c at 6.8% - on 01/01 drawn. Vitamin B12 deficiency, taking her B12 injections with benefit Mood, overall stable Hypothyroidism, taking her synthroid as prescribed Hx of primary peritoneal adenocarcinoma and CA125 levels are stable. No new changes in symptoms. PAST MEDICAL HISTORY Diagnosis Date Absence of menstruation DDD (degenerative disc disease), lumbar Disorder of bone and cartilage, unspecified 07/24/02 Nondiabetic proliferative retinopathy mild-last visit 08/13/[address] 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) Insulin Pump, age 11 diagnosis Umbilical hernia without mention of obstruction or gangrene Urinary tract infection, site not specified Recurrent UTI's PAST SURGICAL HISTORY Procedure Laterality Date APPENDECTOMY DELIVERY ONLY , low cervical COLONOSCOPY FLX DX W/COLLJ SPEC WHEN PFRMD 01/2002 and 11/2006 Colonoscopy INSJ TUNNELED CTR VAD W/SUBQ PORT AGE 5 YR/> Right 05/15/2016 LIG/TRNSXJ FLP TUBE ABDL/VAG APPR UNI/BI PAST SURGICAL HISTORY OF Right carpal tunnel PAST SURGICAL HISTORY OF Bilateral cataract sx PAST SURGICAL HISTORY OF torticollis PAST SURGICAL HISTORY OF 09/10/2008 PROCEDURE CANCELLED- LEFT- UNABLE TO VISUALIZE- PAST SURGICAL HISTORY OF Bilateral Lasers in both eyes PAST SURGICAL HISTORY OF 05/13/2021 Diagnostic laparoscopy RPR UMBILICAL HRNA 5 YRS/> REDUCIBLE 10/17/2004 Hernia repair, umbilical, removal of internal insulin punmp SKIN BX, 1 LESION 05/13/2008 Punch bx skin of forehead TONSILLECTOMY PRIMARY/SECONDARY <AGE 12 Tonsillectomy TOTAL ABDOMINAL HYSTERECT W/WO RMVL TUBE OVARY 11/30/2006 Hysterectomy, KHOI, BSO US BREAST NEEDLE CORE BIOPSY LT 09/17/[address] Current Outpatient Medications Medication Sig mupirocin (BACTROBAN) 2 % ointment Apply to affected area once daily. Until skin sore healed on arm ergocalciferol 50,000 unit capsule (VITAMIN D2, DRISDOL) TAKE 2 CAPSULES BY MOUTH ONCE A WEEK warfarin (COUMADIN) 2 mg tablet 3 mg every Sun and Sunday, 2 mg all other days or as directed atorvastatin (LIPITOR) 10 mg tablet Take 1 tablet by mouth once daily. levothyroxine (SYNTHROID) 112 mcg tablet Take 1 tablet by mouth once daily. metoprolol succinate ER (TOPROL XL) 25 mg 24 hr tablet TAKE 1 TABLET DAILY warfarin (COUMADIN) 1 mg tablet 2 mg Wed, 3 mg all other days or as directed warfarin (COUMADIN) 1 mg tablet 2 mg Wed, 3 mg all other days or as directed cyanocobalamin 1,000 mcg/mL Inject 1 mL intramuscularly once every month. Syringe with Needle, Safety (BD INTEGRA) 3 mL 23 gauge x 1 1 Each once every month. acetaminophen (TYLENOL EXTRA STRENGTH) 500 mg tablet Take 2 tablets by mouth every 6 hours as needed for pain. diclofenac (VOLTAREN) 1 % topical gel Apply 2 g to affected area four times daily as needed. Knee pain for arthritis HUMALOG U-100 INSULIN 100 unit/mL injection Inject subcutaneously, through the insulin pump, max 85 units daily estradiol (ESTRACE) 0.01 % (0.1 mg/gram) vaginal cream APPLY A FINGERTIP AMOUNT EVERY OTHER DAY DIRECTED blood sugar diagnostic (CONTOUR NEXT TEST STRIPS) test strip Dx: Dm1, use of insulin, up to 4 strips per day, Use as instructed. Urine Glucose-Ketones Test (KETO-DIASTIX) strp 1 Strip as needed. blood-glucose meter, wireless (CONTOUR NEXT LINK) kit 1 Device as directed. Dx: type 1 diabetes, insulin 0.9 % SODIUM CHLORIDE (0.9% NACL) Access implanted vascular access device (IVAD) as needed for flush, blood draw or treatment. Flush IVAD with 10-20 mL NS every 4 weeks and PRN when IVAD not in use. heparin 100 unit/mL injection Access implanted vascular access device (IVAD) as needed for flush, blood draw or treatment. Before de-accessing port, flush with 10-20ml normal saline and follow with 5 mL heparin (100 units/mL) (if no heparin allergy). De-access port on treatment completion. Insulin Pump Syringe (MINIMED SYR RES 3CC/22GX1/2) 3 mL misc Change site every 3 days COMPOUNDED PRESCRIPTION Enlite Sensors change sensor every 6 days COMPOUNDED PRESCRIPTION Insulin pump supplies faxed to [facility] Medical glucagon, human recombinant, (GLUCAGON EMERGENCY) 1 mg injection Inject 1 mg subcutaneously. INJECT FOR INSULIN SHOCK vitamin b complex(B COMPLEX 1 TAB) Take one(1) tablet daily. ubidecarenone(CO Q-10 100 MG CAP) Take one(1) capsule daily. oxybutynin XL (DITROPAN XL) 10 mg 24 hr tablet Take 1 tablet by mouth once daily. For bladder incontinence Current Facility-Administered Medications Medication Dose Route Frequency cyanocobalamin 1,000 mcg injection 1,000 mcg INTRAMUSCULAR As Directed ALLERGIES Allergen Reactions Demerol [Meperidine* GI Upset Versed [Midazolam H* GI Upset Codeine loses consciousness;can take percocet with no problem Lisinopril Diarrhea Percocet [Oxycodone* Mental Status Change, GI Upset Social History Tobacco Use Smoking status: Former Years: 4 Types: Cigarettes Smokeless tobacco: Never Tobacco comments: quit age 26 Vaping Use Vaping Use: Never used Substance Use Topics Alcohol use: No Drug use: No ROS: See HPI PE: BP 134/80 Pulse 64 Temp (Src) 98.1 (Left Tympanic) Resp 20 Wt 166 lb (75.3kg) Gen: A&OX3, NAD, non-toxic appearing HEENT: PERRLA, EOMs intact b/l, nares without drainage, pharynx without erythema, exudate, lesions, or drainage. Uvula midline. MMM Neck: No LAD, no thyromegaly, no meningismus. CV: RRR, no murmur Lungs: CTA b/l, no wheezing Skin: scars on arms without signs of infection. Scattered solar lentigos and seborrheic keratoses No edema, legs Abdomen, mildly distended, normal BS, ND Thoracic kyphosis Gait slowed but stable Insulin pump in abdominal wall Cgm left thigh anterior Non focal neurologic exam ASSESSMENT/PLAN: 1. Urinary incontinence, unspecified type - ICD9: 788.30, ICD10: R32 (primary diagnosis) Increase dose of oxybutynin to 10 mg a day, she is aware of possible SE With medication, f/u in 3 months and prn - OXYBUTYNIN CHLORIDE ER 10 MG TABLET,EXTENDED RELEASE 24 HR 2. Cancer of peritoneum (HCC) - ICD9: 158.9, ICD10: C48.2 Hx of, continue routine follow up with specialist 3. Other 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, unspecified chronicity (HCC) - ICD9: 415.19, ICD10: I26.99 Continue chronic anticoagulation 4. 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 Stage 3a chronic kidney disease (HCC) - ICD9: 585.3, ICD10: N18.31 - eGFR: 61 Stable - Counseled on avoiding NSAIDs, adequate hydration - Counseled on low sodium diet 6. Chronic anticoagulation - ICD9: V58.61, ICD10: Z79.01 See above 7. Vitamin B12 deficiency - ICD9: 266.2, ICD10: E53.8 stable 8. Hypothyroidism, acquired - ICD9: 244.9, ICD10: E03.9 - Instructed patient on importance of taking on an empty stomach either first thing in the morning or at bedtime. 9. Essential hypertension, benign - ICD9: 401.1, ICD10: I10 - Controlled - Continue current medications - Recommend home blood pressure monitoring, to bring results to next visit - Encouraged sodium restriction, DASH or Mediterranean diet - Recommend regular aerobic exercise Melchor Washington DO Return if no improvement. Follow up with Melchor Washington DO. To ER if develops chest pain, shortness of breath. Discussed risks, benefits, alternatives, and potential side effects of medications. Patient/Guardian expressed understanding and agreed with the plan. See patient instructions. Melchor Washington DO [address] [place] [address] documented in this encounter [facility] 01-30-2023 History of Present illness Narrative Agree on below Melchor Washington DO patient had inr completed at [facility] patients inr is 2.5 (patients inr range is 2.0-3.0) patient is currently taking 3mg Mon,Wed,Fri and 2mg all other days patients last dose change was on 12/05/22 due to a low level of 1.9 (dose at that time was 3mg Wed,Fri and 2mg all other days) patient has had no changes in medication and no missed doses and no change in diet Advised patient to continue on the same dose(s) and that they would only be contacted regarding dosage and follow up instructions after review with provider, if a change is needed. Written instructions given and patient verbalized understanding. Presently scheduled in 4 weeks (02/27/23) for follow up INR. documented in this encounter [facility] 01-30-2023 History of Present illness Narrative Patient presents for B-12 injection. Denies any problems at this time. Patient instructed on any SE of medication, verbalized understanding and agreed to proceed with treatment. Tolerated injection well. Shilpi Orellana LPN documented in this encounter [facility] 01-24-2023 History of Present illness Narrative Patient is here for IVAD port flush/blood draw per Nursing Godfrey protocol. IVAD is located in right upper chest. Site cleansed with Chloraprep IVAD accessed with a #20 gauge 3/4 non-coring Gripper needle Flush with 5cc's Normal Saline. Blood Return: Good. 10 cc's blood aspirated and discarded. Blood drawn for CBC, CMP, MAG, and Gold top. Flushed with: 20 ml Normal Saline and 5 ml Heparin Lock Flush. Non-coring needle removed. Paper tape applied to puncture site. Site negative for redness, edema or tenderness. Patient tolerated procedure well. documented in this encounter [facility] 01-09-2023 Instructions Melchor Washington DO - 01/09/2023 12:45 PM EDT Use mupirocin ointment on skin sore once a day, keep covered with band aid. Continue until healed. documented in this encounter [facility] 01-09-2023 History of Present illness Narrative CC: Jerica Azul is a 82 year old female who presents to the office for follow up HPI: Skin sores, b/l upper arms, off and on for a few weeks. Doesn't know what caused then, does admit to picking at them at times. No pain Bladder leaking and urgency and frequency, no hematuria or flank pain, chronic, present the last 3-4 years. Has been seen by Urologist for this and treated for urinary tract infection but doesn't feel this really solved her symptoms. She has also done pelvic floor exercises and symptoms persist. Struggles with holding urine/urinary retention. She is interested in trying on a medication HPL, taking lipitor as prescribed, no SE with medication Type 1 diabetes, seen by home health billing specialist, still using her insulin pump and CGM is new D7, A1c at 6.8% - on 01/01 drawn. Vitamin B12 deficiency, taking her B12 injections with benefit Mood, overall stable Hypothyroidism, taking her synthroid as prescribed PAST MEDICAL HISTORY Diagnosis Date Absence of menstruation DDD (degenerative disc disease), lumbar Disorder of bone and cartilage, unspecified 07/24/02 Nondiabetic proliferative retinopathy mild-last visit 08/13/[address] 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) Insulin Pump, age 11 diagnosis Umbilical hernia without mention of obstruction or gangrene Urinary tract infection, site not specified Recurrent UTI's PAST SURGICAL HISTORY Procedure Laterality Date APPENDECTOMY DELIVERY ONLY , low cervical COLONOSCOPY FLX DX W/COLLJ SPEC WHEN PFRMD 01/2002 and 11/2006 Colonoscopy INSJ TUNNELED CTR VAD W/SUBQ PORT AGE 5 YR/> Right 05/15/2016 LIG/TRNSXJ FLP TUBE ABDL/VAG APPR UNI/BI PAST SURGICAL HISTORY OF Right carpal tunnel PAST SURGICAL HISTORY OF Bilateral cataract sx PAST SURGICAL HISTORY OF torticollis PAST SURGICAL HISTORY OF 09/10/2008 PROCEDURE CANCELLED- LEFT- UNABLE TO VISUALIZE- PAST SURGICAL HISTORY OF Bilateral Lasers in both eyes PAST SURGICAL HISTORY OF 05/13/2021 Diagnostic laparoscopy RPR UMBILICAL HRNA 5 YRS/> REDUCIBLE 10/17/2004 Hernia repair, umbilical, removal of internal insulin punmp SKIN BX, 1 LESION 05/13/2008 Punch bx skin of forehead TONSILLECTOMY PRIMARY/SECONDARY <AGE 12 Tonsillectomy TOTAL ABDOMINAL HYSTERECT W/WO RMVL TUBE OVARY 11/30/2006 Hysterectomy, KHOI, BSO US BREAST NEEDLE CORE BIOPSY LT 09/17/[address] Current Outpatient Medications Medication Sig ergocalciferol 50,000 unit capsule (VITAMIN D2, DRISDOL) TAKE 2 CAPSULES BY MOUTH ONCE A WEEK warfarin (COUMADIN) 2 mg tablet 3 mg every Sun and Sunday, 2 mg all other days or as directed atorvastatin (LIPITOR) 10 mg tablet Take 1 tablet by mouth once daily. levothyroxine (SYNTHROID) 112 mcg tablet Take 1 tablet by mouth once daily. metoprolol succinate ER (TOPROL XL) 25 mg 24 hr tablet TAKE 1 TABLET DAILY warfarin (COUMADIN) 1 mg tablet 2 mg Wed, 3 mg all other days or as directed warfarin (COUMADIN) 1 mg tablet 2 mg Wed, 3 mg all other days or as directed cyanocobalamin 1,000 mcg/mL Inject 1 mL intramuscularly once every month. Syringe with Needle, Safety (BD INTEGRA) 3 mL 23 gauge x 1 1 Each once every month. acetaminophen (TYLENOL EXTRA STRENGTH) 500 mg tablet Take 2 tablets by mouth every 6 hours as needed for pain. diclofenac (VOLTAREN) 1 % topical gel Apply 2 g to affected area four times daily as needed. Knee pain for arthritis HUMALOG U-100 INSULIN 100 unit/mL injection Inject subcutaneously, through the insulin pump, max 85 units daily estradiol (ESTRACE) 0.01 % (0.1 mg/gram) vaginal cream APPLY A FINGERTIP AMOUNT EVERY OTHER DAY DIRECTED blood sugar diagnostic (CONTOUR NEXT TEST STRIPS) test strip Dx: Dm1, use of insulin, up to 4 strips per day, Use as instructed. Urine Glucose-Ketones Test (KETO-DIASTIX) strp 1 Strip as needed. blood-glucose meter, wireless (CONTOUR NEXT LINK) kit 1 Device as directed. Dx: type 1 diabetes, insulin 0.9 % SODIUM CHLORIDE (0.9% NACL) Access implanted vascular access device (IVAD) as needed for flush, blood draw or treatment. Flush IVAD with 10-20 mL NS every 4 weeks and PRN when IVAD not in use. heparin 100 unit/mL injection Access implanted vascular access device (IVAD) as needed for flush, blood draw or treatment. Before de-accessing port, flush with 10-20ml normal saline and follow with 5 mL heparin (100 units/mL) (if no heparin allergy). De-access port on treatment completion. Insulin Pump Syringe (MINIMZolkC SYR RES 3CC/22GX1/2) 3 mL misc Change site every 3 days COMPOUNDED PRESCRIPTION Enlite Sensors change sensor every 6 days COMPOUNDED PRESCRIPTION Insulin pump supplies faxed to [facility] Medical glucagon, human recombinant, (GLUCAGON EMERG[facility]) 1 mg injection Inject 1 mg subcutaneously. INJECT FOR INSULIN SHOCK vitamin b complex(B COMPLEX 1 TAB) Take one(1) tablet daily. ubidecarenone(CO Q-10 100 MG CAP) Take one(1) capsule daily. mupirocin (BACTROBAN) 2 % ointment Apply to affected area once daily. Until skin sore healed on arm oxybutynin XL (DITROPAN XL) 5 mg 24 hr tablet Take 1 tablet by mouth once daily. For bladder incontinence Current Facility-Administered Medications Medication Dose Route Frequency cyanocobalamin 1,000 mcg injection 1,000 mcg INTRAMUSCULAR q 4 WEEKS cyanocobalamin 1,000 mcg injection 1,000 mcg INTRAMUSCULAR As Directed ALLERGIES Allergen Reactions Demerol [Meperidine* GI Upset Versed [Midazolam H* GI Upset Anesthetic Agent [O* Codeine loses consciousness;can take percocet with no problem Lisinopril Diarrhea Percocet [Oxycodone* Mental Status Change, GI Upset Social History Tobacco Use Smoking status: Former Years: 4 Types: Cigarettes Smokeless tobacco: Never Tobacco comments: quit age 26 Vaping Use Vaping Use: Never used Substance Use Topics Alcohol use: No Drug use: No ROS: See HPI PE: BP 120/62 Pulse 68 Temp (Src) 97 (Right Tympanic) Resp 20 Wt 166 lb (75.3kg) Gen: A&OX3, NAD, non-toxic appearing HEENT: PERRLA, EOMs intact b/l, nares without drainage, pharynx without erythema, exudate, lesions, or drainage. Uvula midline. Neck: No LAD, no thyromegaly, no meningismus. CV: RRR, no murmur Lungs: CTA b/l, no wheezing Skin: yellow crusting on scabbed skin lesion right upper lateral arm No edema, legs Abdomen, mildly distended, normal BS, ND Thoracic kyphosis Gait slowed but stable Insulin pump in abdominal wall Cgm left thigh anterior Non focal neurologic exam ASSESSMENT/PLAN: 1. Hypothyroidism, acquired - ICD9: 244.9, ICD10: E03.9 (primary diagnosis) - Instructed patient on importance of taking on an empty stomach either first thing in the morning or at bedtime. - continue current dose of Synthroid - TSH BLD - T4 FREE/FREE THYROX 2. Skin sore - ICD9: 709.9, ICD10: L98.9 rx as below, if not healed she will notify office - MUPIROCIN 2 % TOPICAL OINTMENT 3. Urinary incontinence, unspecified type - ICD9: 788.30, ICD10: R32 rx for trial basis, has pelvic floor dysfunction as well from previous surgery, has completed PHYSICAL THERAPY pelvic exercises without benefit. - OXYBUTYNIN CHLORIDE ER 5 MG TABLET,EXTENDED RELEASE 24 HR 4. Vitamin B12 deficiency - ICD9: 266.2, ICD10: E53.8 Continue supplmenet - VITAMIN B12 BLOOD 5. Pure hypercholesterolemia - ICD9: 272.0, ICD10: E78.00 Stable, chronic. 6. 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, 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, 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) - ICD9: 250.91, V45.85, ICD10: E10.8, Z96.41 Managed by Endocrinology - VITAMIN B12 BLOOD 7. Essential hypertension, benign - ICD9: 401.1, ICD10: I10 - Controlled - Continue current medications - Recommend home blood pressure monitoring, to bring results to next visit - Encouraged sodium restriction, DASH or Mediterranean diet - Recommend regular aerobic exercise - CBC + DIFF 8. Vitamin D deficiency - ICD9: 268.9, ICD10: E55.9 stable - VITAMIN D 25 HYDROXY 9. 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 Stage 3a chronic kidney disease (HCC) - ICD9: 585.3, ICD10: N18.31 - eGFR: 69 Stable - Counseled on avoiding NSAIDs, adequate hydration - Counseled on low sodium diet Melchor Washington DO Return if no improvement. Follow up with Melchor Washington DO. To ER if develops chest pain, shortness of breath. Discussed risks, benefits, alternatives, and potential side effects of medications. Patient/Guardian expressed understanding and agreed with the plan. See patient instructions. Melchor Washington DO [address] [place] [address] documented in this encounter [facility] 01-02-2023 History of Present illness Narrative Agree as below Melchor Washington DO patient had inr completed at [facility] patients inr is 2.8 (patients inr range is 2.0-3.0) patient is currently taking 3mg Mon,Wed,Fri and 2mg all other days patients last dose change was on 12/05/22 due to a low level of 1.9 (dose at that time was 3mg Wed,Fri and 2mg all other days) patient has had no changes in medication and no missed doses and no change in diet Advised patient to continue on the same dose(s) and that they would only be contacted regarding dosage and follow up instructions after review with provider, if a change is needed. Written instructions given and patient verbalized understanding. Presently scheduled in 4 weeks (01/30/23) for follow up INR. documented in this encounter [facility] 01-02-2023 History of Present illness Narrative Patient presents for B-12 injection. Denies any problems at this time. Patient instructed on any SE of medication, verbalized understanding and agreed to proceed with treatment. Tolerated injection well. Pt to also receive COVID vaccine. Shilpi Orellana LPN documented in this encounter [facility] 12-25-2022 Miscellaneous Notes Patient last visit with PCP 10/03/22 Follow up appointment scheduled 01/09/23 Brianna Artis Ma Patient is totally out and need this to go to pharmacy today if possible. Patient has been identified by name and date of : Yes Requested Prescriptions Pending Prescriptions Disp Refills ergocalciferol 50,000 unit capsule (VITAMIN D2, DRISDOL) 24 capsule 3 Sig: TAKE 2 CAPSULES BY MOUTH ONCE A WEEK RX INSTRUCTIONS: Patient aware RX will be sent to pharmacy. No need to notify patient. Angela Parikh Pss documented in this encounter [facility] 12-19-2022 History of Present illness Narrative I agree with the advice given; stay same and recheck in 2 weeks Simone Tai MD patient had inr completed at [facility] patients inr is 2.5 (patients inr range is 2.0-3.0) patient is currently taking 3mg Mon,Wed,Fri and 2mg all other days patients last dose change was on 12/05/22 due to a low level of 1.9 (dose at that time was 3mg Sun,Sun and 2mg all other days) patient has had no changes in medication except for coumadin and no missed doses and no change in diet Advised patient to continue on the same dose(s) and that they would only be contacted regarding dosage and follow up instructions after review with provider, if a change is needed. Written instructions given and patient verbalized understanding. Presently scheduled in 2 weeks (01/02/23) for follow up INR since this is the first normal reading since dose change documented in this encounter [facility] 12-05-2022 History of Present illness Narrative Patient presents for B-12 injection. Denies any problems at this time. Patient instructed on any SE of medication, verbalized understanding and agreed to proceed with treatment. Tolerated injection well. Pt to also receive flu vaccine. Shilpi Orellana LPN documented in this encounter [facility] 11-16-2022 Miscellaneous Notes Pt reports she has 1 mg but is out of 2 mg. Patient has been identified by name and date of : Yes, Provider Dr Washington Date 11/16/22 Time 1657. Patient phones for refill(s): Requested Prescriptions Pending Prescriptions Disp Refills warfarin (COUMADIN) 2 mg tablet 90 tablet 3 Si mg every Sun and Sunday, 2 mg all other days or as directed Date of last office visit in primary care: 10/03/22 Future visit: 01/09/23 Last 2 Encounter Wt Readings: Date: Wt: 10/03/2022 73 kg (161 lb) 07/03/2022 71.2 kg (157 lb) Previous labs/tests for medication: Coumadin: PT INR (no units) Date Value 03/15/2021 2.6 INR (POCT) (no units) Date Value 11/07/2022 2.0 Please advise. Thank you. Denise Lorenzo RN documented in this encounter [facility] 11-07-2022 History of Present illness Narrative Agree with below Melchor Washington DO patient had inr completed at [facility] patients inr is 2.0 (patients inr range is 2.0-3.0) patient is currently taking 3mg Wed,Fri and 2mg all other days patients last dose change was on 10/17/22 due to a high level of 3.9 (dose at that time was 3mg Wed,Fri,Sat and 2mg all other days) patient has had no changes in medication and no missed doses and no change in diet Advised patient to continue on the same dose(s) and that they would only be contacted regarding dosage and follow up instructions after review with provider, if a change is needed. Written instructions given and patient verbalized understanding. Presently scheduled in 4 weeks (12/05/22) for follow up INR. documented in this encounter [facility] 11-07-2022 Miscellaneous Notes Mailed to Pt. Bernice Deng LPN Please print 2 copies and mail to patient as requested. Letter ready to print. Ashley Mathews PA-C 11/07/2022 Patient requesting to have updated form for [employer]. States that she needs 2 copies so can get for both vehicles. Mail to patient when completed (letter pended under communications). Shilpi Orellana LPN documented in this encounter [facility] 11-07-2022 History of Present illness Narrative Patient presents for B-12 injection. Denies any problems at this time. Patient instructed on any SE of medication, verbalized understanding and agreed to proceed with treatment. Tolerated injection well. Shilpi Orellana LPN documented in this encounter [facility] 11-01-2022 History of Present illness Narrative Patient is here for IVAD port flush/blood draw. IVAD is located in right upper chest. Site cleansed with Chloraprep IVAD accessed with a #20 gauge 3/4 non-coring Gripper needle Flush with 5cc's Normal Saline. Blood Return: Good. 10 cc's blood aspirated and discarded. Blood drawn for CMP and Ca-125. Flushed with: 20 ml Normal Saline and 5 ml Heparin Lock Flush. Non-coring needle removed. Paper tape applied to puncture site. Site negative for redness, edema or tenderness. Patient tolerated procedure well. Maria Alejandra Leal RN documented in this encounter [facility] 10-24-2022 History of Present illness Narrative Agree with below Melchor Washington DO patient had inr completed at [facility] patients inr is 1.5 (patients inr range is 2.0-3.0) patient is currently taking 3mg Wed,Fri and 2mg all other days patients last dose change was on 10/17/22 due to a high level of 3.9 (dose at that time was 3mg Wed,Fri,Sat and 2mg all other days) patient has had no changes in medication except for coumadin and patient missed a dose and no change in diet recommendation: patient continue same dose and recheck inr in 2 weeks since low level is most likely due to the missed dose patient has been scheduled for a 2 week follow up inr on 11/07/22 please review and advise on recommendation documented in this encounter [facility] 10-17-2022 History of Present illness Narrative PATIENT NOTIFIED OF INFORMATION Agree with below recommendations Melchor Washington DO patient had inr completed at [facility] patients inr is 3.9 (patients inr range is 2.0-3.0) patient is currently taking 3mg WEd,Fri Sat and 2mg all other days patients last dose change was on 09/19/22 due to a high level of 3.1 (dose at that time was 2mg Tues,thurs,Sat and 3mg all other days) patient has had no changes in medication and no missed doses and no change in diet Recommend: patient change coumadin dose to 3mg Wed Fri and 2mg all other days and recheck inr in 1 weeks Patient has been scheduled for a 1 week follow up inr on 10/24/22 Please review and advise on recommendation documented in this encounter [facility] 10-10-2022 History of Present illness Narrative Patient presents for B-12 injection. Denies any problems at this time. Patient instructed on any SE of medication, verbalized understanding and agreed to proceed with treatment. Tolerated injection well. Shilpi Orellana LPN documented in this encounter [facility] 09-26-2022 History of Present illness Narrative Agree with below Melchor Washington DO patient had inr completed at [facility] patients inr is 2.6 (patients inr range is 2.0-3.0) patient is currently taking 3mg Wed,Fri,Sat and 2mg all other days patients last dose change was on 09/19/22 due to a high level of 3.1 (dose at that time was 3mg Mon,Wed,Fri,Sun and 2mg all other days) patient has had no changes in medication except for coumadin and no missed doses and no change in diet Advised patient to continue on the same dose(s) and that they would only be contacted regarding dosage and follow up instructions after review with provider, if a change is needed. Written instructions given and patient verbalized understanding. Presently scheduled in 3 weeks (10/17/22) for follow up INR. documented in this encounter [facility] 09-19-2022 History of Present illness Narrative PATIENT NOTIFIED OF INFORMATION I agree with the advice given Simone Tai MD patient had inr completed at [facility] patients inr is 3.1 (patients inr range is 2.0-3.0) patient is currently taking 2mg Tues,Thurs,Sat and 3mg all other days patients last dose change was on 09/06/22 due to a low level of 1.4 (dose at that time was 3mg Thurs,Sat,Sun and 2mg all other days) patient has had no changes in medication except for coumadin and no missed doses and no change in diet Recommended that patient go to 3mg Wed,Fri,Sat and 2mg all other days and recheck inr in 1 week Patient has been scheduled for a 1 week follow up inr on 09/26/22 Please review and advise on recommendation documented in this encounter [facility] 09-11-2022 History of Present illness Narrative Patient presents for B-12 injection. Denies any problems at this time. Patient instructed on any SE of medication, verbalized understanding and agreed to proceed with treatment. Tolerated injection well. Shilpi Orellana LPN documented in this encounter [facility] 09-04-2022 Miscellaneous Notes See MyChart message from 08/26. Kapil Guillen APRN.[employer] Please see patient message and advise. Thank you. GELACIO Banuelos documented in this encounter [facility] 08-17-2022 Miscellaneous Notes Pt was informed of such. We really can't advise if these are safe since they are not well tested or standardized Melchor Washington DO Pt calls to report she has a lot of arthritis pain and would like to take CBD gummies. Pt reports she is not sure is she can take them with the medications she is on or if it would affect any of them. Please review and advise. Parul Stanley LPN documented in this encounter [facility] 08-15-2022 History of Present illness Narrative Patient presents for B-12 injection. Denies any problems at this time. Patient instructed on any SE of medication, verbalized understanding and agreed to proceed with treatment. Tolerated injection well. Pt to also receive COVID booster. Shilpi Orellana LPN documented in this encounter [facility] 08-10-2022 Miscellaneous Notes T/c gave information provided. I don't think she needs a standing order for urine at this time unless she is symptomatic for risk of UTI Please inform patient Melchor Washington DO Pt reports she has to get port assessed every month. Pt reports she usually has to get INR, CA 125, and urine done. Chart shows pt has SO for INR and CA125 but not urine. Pt is asking if she needs to have a SO for urine now or not. Pt reports the [facility] would do urinalysis before. Pt is asking pcp to order this if she still needs to have urinalysis done. Parul Stanley LPN documented in this encounter [facility] 08-10-2022 Miscellaneous Notes Order has been pended . Please sign. Please load order needed Melchor Washington DO Pt. informed. She needs standing order for monthly INR done at [place]. INR stable, recheck INR 4 weeks Melchor Washington DO Last INR: INR 2.4 08/09/2022 Current dose of coumadin 2 mg Mon, Tu., Wed, Fri and 3 mg on Th and Sat and Sun.. Previous INR (date and result): 2.1 06/2522 Additional Clinical Information or narrative: no documented in this encounter [facility] 07-12-2022 History of Present illness Narrative Patient is here for IVAD port flush/blood draw per Nursing [facility] protocol. IVAD is located in right upper chest. Site cleansed with Chloraprep IVAD accessed with a #20 gauge 3/4 non-coring Gripper needle Flush with 5cc's Normal Saline. Blood Return: Good. 10 cc's blood aspirated and discarded. Blood drawn for CMP. Flushed with: 20 ml Normal Saline and 5 ml Heparin Lock Flush. Non-coring needle removed. Paper tape applied to puncture site. Site negative for redness, edema or tenderness. Patient tolerated procedure well. documented in this encounter [facility] 07-10-2022 History of Present illness Narrative Patient presents for B-12 injection. Denies any problems at this time. Patient instructed on any SE of medication, verbalized understanding and agreed to proceed with treatment. Tolerated injection well. Shilpi Orellana LPN documented in this encounter [facility] 07-03-2022 History of Present illness Narrative CC: Jerica Azul is a 82 year old female who presents to the office for follow up HPI: At last OFFICE VISIT on 03/20/2022 She feels her anxiety and insomnia symptoms have improved. She is taking the melatonin and magnesium supplement more regularly and is working on diet modifications and trying to be more physically active. Vitamin B12 deficiency, feels her vitamin B12 is helping her fatigue, she doesn't feel she is able to do these injections herself at home and prefers to continue to come into the office monthly for nurse visits instead. Type 1 diabetes, overall has been stable. Seeing Dr. Ross for care Peritoneal adenocarcinoma. Chronic coumadin due to hypercoagulability. Wanting to increase her green vegetables and fresh fruits to help with cancer related nutrition. She is not taking her chemo treatments any longer due to the side effects. She feels her symptoms are improving. Recent urinalysis showed + leukocytes and proteins. Currently Patient states that she has recently had a Dizziness episode, occurred on Sunday morning when she woke up with associated nausea. She went to the bathroom and took meclizine that was old and that she had left over from when she had 1 episode about 20 years ago and had to be treated with meclizine medication during that episode. She took 2 tablets of meclizine total on Sunday, 1 tablet of meclizine on Sun and 1 tablet of meclizine on Sunday. Chronic anticoagulation due to peritoneal adenocarcinoma and hypercoagulable state, she is tolerating rx fine Vitamin B12 deficiency, taking her B12 injections with benefit Mood, overall stable Hypothyroidism, taking her synthroid as prescribed TSH Date Value Ref Range Status 03/22/2022 3.140 0.270 - 4.200 mIU/L Final PAST MEDICAL HISTORY Diagnosis Date Absence of menstruation DDD (degenerative disc disease), lumbar Disorder of bone and cartilage, unspecified 07/24/02 Nondiabetic proliferative retinopathy mild-last visit 08/13/[address] 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) Insulin Pump, age 11 diagnosis Umbilical hernia without mention of obstruction or gangrene Urinary tract infection, site not specified Recurrent UTI's PAST SURGICAL HISTORY Procedure Laterality Date APPENDECTOMY DELIVERY ONLY , low cervical COLONOSCOPY FLX DX W/COLLJ SPEC WHEN PFRMD 01/2002 and 11/2006 Colonoscopy INSJ TUNNELED CTR VAD W/SUBQ PORT AGE 5 YR/> Right 05/15/2016 LIG/TRNSXJ FLP TUBE ABDL/VAG APPR UNI/BI PAST SURGICAL HISTORY OF Right carpal tunnel PAST SURGICAL HISTORY OF Bilateral cataract sx PAST SURGICAL HISTORY OF torticollis PAST SURGICAL HISTORY OF 09/10/2008 PROCEDURE CANCELLED- LEFT- UNABLE TO VISUALIZE- PAST SURGICAL HISTORY OF Bilateral Lasers in both eyes PAST SURGICAL HISTORY OF 05/13/2021 Diagnostic laparoscopy RPR UMBILICAL HRNA 5 YRS/> REDUCIBLE 10/17/2004 Hernia repair, umbilical, removal of internal insulin punmp SKIN BX, 1 LESION 05/13/2008 Punch bx skin of forehead TONSILLECTOMY PRIMARY/SECONDARY <AGE 12 Tonsillectomy TOTAL ABDOMINAL HYSTERECT W/WO RMVL TUBE OVARY 11/30/2006 Hysterectomy, KHOI, BSO US BREAST NEEDLE CORE BIOPSY LT 09/17/[address] Current Outpatient Medications Medication Sig cyanocobalamin 1,000 mcg/mL Inject 1 mL intramuscularly once every month. Syringe with Needle, Safety ([employer] INTEGRA) 3 mL 23 gauge x 1 1 Each once every month. warfarin (COUMADIN) 2 mg tablet 2 mg Wed, 3 mg all other days or as directed ergocalciferol 50,000 unit capsule (VITAMIN D2, DRISDOL) TAKE 2 CAPSULES BY MOUTH ONCE A WEEK levothyroxine (SYNTHROID) 112 mcg tablet Take 1 tablet by mouth once daily. atorvastatin (LIPITOR) 10 mg tablet Take 1 tablet by mouth once daily. anastrozole (ARIMIDEX) 1 mg tablet Take 1 tablet by mouth once daily. metoprolol succinate ER (TOPROL XL) 25 mg 24 hr tablet Take 1 tablet by mouth once daily. acetaminophen (TYLENOL EXTRA STRENGTH) 500 mg tablet Take 2 tablets by mouth every 6 hours as needed for pain. diclofenac (VOLTAREN) 1 % topical gel Apply 2 g to affected area four times daily as needed. Knee pain for arthritis HUMALOG U-100 INSULIN 100 unit/mL injection Inject subcutaneously, through the insulin pump, max 85 units daily estradiol (ESTRACE) 0.01 % (0.1 mg/gram) vaginal cream APPLY A FINGERTIP AMOUNT EVERY OTHER DAY DIRECTED blood sugar diagnostic (CONTOUR NEXT TEST STRIPS) test strip Dx: Dm1, use of insulin, up to 4 strips per day, Use as instructed. blood-glucose meter, wireless (CONTOUR NEXT LINK) kit 1 Device as directed. Dx: type 1 diabetes, insulin Insulin Pump Syringe ([employer] RES 3CC/22GX1/2) 3 mL misc Change site every 3 days COMPOUNDED PRESCRIPTION Enlite Sensors change sensor every 6 days COMPOUNDED PRESCRIPTION Insulin pump supplies faxed to [facility] Medical glucagon, human recombinant, (GLUCAGON EMERGENCY) 1 mg injection Inject 1 mg subcutaneously. INJECT FOR INSULIN SHOCK vitamin b complex(B COMPLEX 1 TAB) Take one(1) tablet daily. warfarin (COUMADIN) 1 mg tablet 2 mg Wed, 3 mg all other days or as directed warfarin (COUMADIN) 1 mg tablet 2 mg Wed, 3 mg all other days or as directed meclizine (ANTIVERT) 12.5 mg tab Take 1 tablet by mouth every 6 hours as needed (dizziness). melatonin 10 mg cap Take by mouth. Magnesium 200 mg tab Take by mouth. Urine Glucose-Ketones Test (KETO-DIASTIX) strp 1 Strip as needed. ketoconazole (NIZORAL) 2 % shampoo Apply 1 application to affected area once daily as needed. 0.9 % SODIUM CHLORIDE (0.9% NACL) Access implanted vascular access device (IVAD) as needed for flush, blood draw or treatment. Flush IVAD with 10-20 mL NS every 4 weeks and PRN when IVAD not in use. heparin 100 unit/mL injection Access implanted vascular access device (IVAD) as needed for flush, blood draw or treatment. Before de-accessing port, flush with 10-20ml normal saline and follow with 5 mL heparin (100 units/mL) (if no heparin allergy). De-access port on treatment completion. ubidecarenone(CO Q-10 100 MG CAP) Take one(1) capsule daily. Current Facility-Administered Medications Medication Dose Route Frequency cyanocobalamin 1,000 mcg injection 1,000 mcg INTRAMUSCULAR q 4 WEEKS cyanocobalamin 1,000 mcg injection 1,000 mcg INTRAMUSCULAR As Directed perflutren lipid microspheres 1.3 mL in NaCl (PF) 0.9% 10 mL injection (DEFINITY) INTRAVENOUS DIRECTED PRN sodium chloride 0.9 % (flush) 10 mL (BD POSIFLUSH) 10 mL INTRAVENOUS DIRECTED PRN ALLERGIES Allergen Reactions Demerol [Meperidine* GI Upset Versed [Midazolam H* GI Upset Anesthetic Agent [O* Codeine loses consciousness;can take percocet with no problem Lisinopril Diarrhea Percocet [Oxycodone* Mental Status Change, GI Upset Social History Tobacco Use Smoking status: Former Years: 4.00 Types: Cigarettes Smokeless tobacco: Never Tobacco comments: quit age 26 Vaping Use Vaping Use: Never used Substance Use Topics Alcohol use: No Drug use: No ROS: See hPI PE: BP 138/82 Pulse 80 Temp (Src) 97 (Right Tympanic) Resp 16 Wt 157 lb (71.2kg) Gen: A&OX3, NAD, non-toxic appearing HEENT: PERRLA, EOMs intact b/l, nares without drainage, pharynx without erythema, exudate, lesions, or drainage. Uvula midline. Neck: No LAD, no thyromegaly, no meningismus. CV: RRR, no murmur Lungs: CTA b/l, no wheezing Skin: No rashes, lesions, or wounds on exposed skin. No edema, legs Abdomen, mildly distended, normal BS, ND Thoracic kyphosis Gait slowed but stable Insulin pump in abdominal wall Non focal neurologic exam ASSESSMENT/PLAN: 1. Dizziness - ICD9: 780.4, ICD10: R42 (primary diagnosis) - rx prn as below, needs to consider exercise for inner ear at home. Concerns for BPPV, no other stroke like symptoms. She will go to EMERGENCY DEPARTMENT if worsening symptoms. Consider vestibular PT - MECLIZINE 12.5 MG TABLET - CONSULT TO PHYSICAL THERAPY 2. Chronic anticoagulation - ICD9: V58.61, ICD10: Z79.01 - rx refilled, stable - WARFARIN 1 MG TABLET 3. Malignant neoplasm of both ovaries (HCC) - ICD9: 183.0, ICD10: C56.3 - recheck labs and follow up with Oncologist - CA 125 BLD - COMP METABOLIC PANEL 4. Vitamin B12 deficiency - ICD9: 266.2, ICD10: E53.8 Continue vitamin B12 injections - VITAMIN B12 BLOOD 5. Hypothyroidism, acquired - ICD9: 244.9, ICD10: E03.9 - Instructed patient on importance of taking on an empty stomach either first thing in the morning or at bedtime. Stable - Continue current medications - TSH BLD - T4 FREE/FREE THYROX 6. Fatigue, unspecified type - ICD9: 780.79, ICD10: R53.83 Stable,chronic, multifactorial 7. Essential hypertension, benign - ICD9: 401.1, ICD10: I10 - good control - Continue current medication(s) - Encouraged dietary sodium restriction/DASH diet - Recommended regular aerobic exercise. - Recommend home blood pressure monitoring, to bring results in on next visit - Discussed need and benefit for weight loss. - Goal of BP <130/80 Melchor Washington DO Return if no improvement. Follow up with Melchor Washington DO. To ER if develops chest pain, shortness of breath Discussed risks, benefits, alternatives, and potential side effects of medications. Patient/Guardian expressed understanding and agreed with the plan. See patient instructions. Melchor Washington DO [address] [place] [address] documented in this encounter [facility] 06-14-2022 Miscellaneous Notes Pt states lab osvaldo these because they had requested order. Requested lab orders placed. Kapil Guillen APRN.LABORER SYRUP MACHINE Pt was here today for labs. States that her OPTICAL SYSTEMS ENGINEER at [facility] typically places orders. Per [facility], PCP needs to place orders for CA125 and UA as patient is no longer under their care. Please advise. Thank you. documented in this encounter [facility] 06-14-2022 History of Present illness Narrative INR documented in this encounter [facility] 06-12-2022 History of Present illness Narrative Patient presents for B-12 injection. Denies any problems at this time. Patient instructed on any SE of medication, verbalized understanding and agreed to proceed with treatment. Tolerated injection well. Shilpi Bonnieville RESEARCH MANAGEMENT ASSOCIATE documented in this encounter [facility] 05-18-2022 Miscellaneous Notes LVM for patient to follow up on labs and check in. Asked that she return my call. 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 APRN.FERNY documented in this encounter [facility] 05-08-2022 History of Present illness Narrative PATIENT NOTIFIED OF INFORMATION via detailed message Decrease dose to 2 mg Mon, Tues., Wed, Fri and 3 mg on and Sat and Sun. Recheck INR 1 week Melchor Washington DO patient had inr completed at [facility] patients inr is 3.1 (patients inr range is 2.0-3.0) patient is currently taking 2mg Mon,Tues,Wed and 3mg all other days patients last dose change was on 04/17/22 due to a high level of 4.3 (dose at that time was 2mg Mon,Wed and 3mg all other days) patient has had no changes in medication and no missed doses and no change in diet Advised patient that they would be contacted regarding medication dose and when to follow up after information is reviewed by provider. After provider review please contact the patient with information and schedule follow up appointment with coumadin clinic. ok to leave a detailed message if no answer FYI- patient is scheduled for a 1 week follow up inr on 05/17/22 documented in this encounter [facility] 05-03-2022 Miscellaneous Notes Left detailed message notifying pt of below. Shilpi Orellana LPN Please inform patient that her cologard is negative Melchor Washington DO documented in this encounter [facility] 04-24-2022 History of Present illness Narrative Agree with below Melchor Washington DO patient had inr completed at [facility] patients inr is 2.8 (patients inr range is 2.0-3.0) patient is currently taking 2mg Mon,Tues,Wed and 3mg all other days patients last dose change was on 04/17/22 due to a high level of 4.3 (dose at that time was 2mg Mon,Wed and 3mg all other days) patient has had no changes in medication except for coumadin and no uninstructed missed doses and no change in diet Advised patient to continue on the same dose(s) and that they would only be contacted regarding dosage and follow up instructions after review with provider, if a change is needed. Written instructions given and patient verbalized understanding. Presently scheduled in 2 weeks (05/08/22)for follow up INR since this is the first normal reading since dose change documented in this encounter [facility] 04-18-2022 Miscellaneous Notes Spoke to Cesar who advised injection is covered in office. Reference number stated below and patient notified. Ref call number: [id number] Brianna Artis Ma PA department only manages medication sent to pharmacy. Will reach out to administrative nursing supervisor to see who would help get this authorized with insurance. Brianna Artis Ma Patient calling to say an insurance authorization is needed for her B 12 injections even though they are being given in the clinic. Madelaine Forbes RN documented in this encounter [facility] 04-17-2022 History of Present illness Narrative Spoke with patient. Given message from provider's office. Patient verbalizes understanding. Madelaine Forbes RN Hold today's dose of coumadin, restart coumadin tomorrow at 2 mg on Mon, Tues and Wed, 3 mg other days of the week, recheck INR 1 week Melchor Washington DO patient had inr completed at [facility] patients inr is 4.3 (patients inr range is 2.0-3.0) patient is currently taking 2mg Mon,Wed and 3mg all other days patients last dose change was on 02/22/22 due to a low level of 1.6 (dose at that time was 3mg Tues,,Sun and 2mg all other days) patient has had no changes in medication and no missed doses and no change in diet FYI- patient has been instructed to hold coumadin until contacted Advised patient that they would be contacted regarding medication dose and when to follow up after information is reviewed by provider. After provider review please contact the patient with information and schedule follow up appointment with coumadin clinic. ok to leave a detailed message if no answer FYI- patient has been scheduled for a1 week follow up inr on 04/24/22 documented in this encounter [facility] 04-17-2022 History of Present illness Narrative Patient presents for B-12 injection. Denies any problems at this time. Brought own medication. Patient instructed on any SE of medication, verbalized understanding and agreed to proceed with treatment. Tolerated injection well. Shilpi Orellana LPN documented in this encounter [facility] 04-05-2022 Miscellaneous Notes Pt informed, verbalized understanding Alondra Coombs MA Left message to return call. Vitamin B12 levels are much improved and into controlled adequate range Would have her cut back to 2000 international unit(s) a day of vitamin D3 with a meal Melchor Washington DO Pt reports she is taking 50,000 international unit(s) of vitamin D 2 capsules once a week. Pt asking what dose she should take? Pt asking for B12 results. No urinary sx at this time per patient. Alondra Wang Ma Please inform patient that her labs showed that her vitamin D is a little too high. Would cut back down to take 1000 international unit(s) a day less than what she is currently taking for vitamin D supplement. Her urine culture was contaminated appearing. Would recommend recheck of urine culture if having any urinary symptoms Melchor Washington DO documented in this encounter [facility] 03-20-2022 History of Present illness Narrative CC: Jerica Azul is a 82 year old female who presents to the office for follow up HPI: Seen in office 10/19/21 Peritoneal adenocarcinoma, malignant neoplasm ovaries, has recently told DIRECT SUPPORT WORKER Oncologist that she wants to stop treatments- feels she is getting so many side effects and doesn't feel well. Understands that this places a shorter life expectancy but she states I already feel better though and that is worth it to me. Type 1 diabetes, managed with her insulin pump, seeing Dr. Ross Tobacco Warehouse Agent, needing labs rechecked with port flush, asking for these to be ordered Situational insomnia, anxiety at night, long standing, trying supplements at this time over the counter including melatonin and magnesium. Wants to try this before starting another medication At last OFFICE VISIT on 12/14/2021 She feels her anxiety and insomnia symptoms have improved. She is taking the melatonin and magnesium supplement more regularly and is working on diet modifications and trying to be more physically active. Type 1 diabetes, overall has been stable. Seeing Dr. Ross for care Peritoneal adenocarcinoma. Chronic coumadin due to hypercoagulability. Wanting to increase her green vegetables and fresh fruits to help with cancer related nutrition. She is not taking her chemo treatments any longer due to the side effects. She feels her symptoms are improving. Currently She feels her anxiety and insomnia symptoms have improved. She is taking the melatonin and magnesium supplement more regularly and is working on diet modifications and trying to be more physically active. Vitamin B12 deficiency, feels her vitamin B12 is helping her fatigue, she doesn't feel she is able to do these injections herself at home and prefers to continue to come into the office monthly for nurse visits instead. Type 1 diabetes, overall has been stable. Seeing Dr. Ross for care Peritoneal adenocarcinoma. Chronic coumadin due to hypercoagulability. Wanting to increase her green vegetables and fresh fruits to help with cancer related nutrition. She is not taking her chemo treatments any longer due to the side effects. She feels her symptoms are improving. Recent urinalysis showed + leukocytes and proteins. PAST MEDICAL HISTORY Diagnosis Date Absence of menstruation DDD (degenerative disc disease), lumbar Disorder of bone and cartilage, unspecified 07/24/02 Nondiabetic proliferative retinopathy mild-last visit 08/13/[address] 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) Insulin Pump, age 11 diagnosis Umbilical hernia without mention of obstruction or gangrene Urinary tract infection, site not specified Recurrent UTI's PAST SURGICAL HISTORY Procedure Laterality Date APPENDECTOMY DELIVERY ONLY , low cervical COLONOSCOPY FLX DX W/COLLJ SPEC WHEN PFRMD 01/2002 and 11/2006 Colonoscopy INSJ TUNNELED CTR VAD W/SUBQ PORT AGE 5 YR/> Right 05/15/2016 LIG/TRNSXJ FLP TUBE ABDL/VAG APPR UNI/BI PAST SURGICAL HISTORY OF Right carpal tunnel PAST SURGICAL HISTORY OF Bilateral cataract sx PAST SURGICAL HISTORY OF torticollis PAST SURGICAL HISTORY OF 09/10/2008 PROCEDURE CANCELLED- LEFT- UNABLE TO VISUALIZE- PAST SURGICAL HISTORY OF Bilateral Lasers in both eyes PAST SURGICAL HISTORY OF 05/13/2021 Diagnostic laparoscopy RPR UMBILICAL HRNA 5 YRS/> REDUCIBLE 10/17/2004 Hernia repair, umbilical, removal of internal insulin punmp SKIN BX, 1 LESION 05/13/2008 Punch bx skin of forehead TONSILLECTOMY PRIMARY/SECONDARY <AGE 12 Tonsillectomy TOTAL ABDOMINAL HYSTERECT W/WO RMVL TUBE OVARY 11/30/2006 Hysterectomy, KHOI, BSO US BREAST NEEDLE CORE BIOPSY LT 09/17/[address] Current Outpatient Medications Medication Sig cyanocobalamin 1,000 mcg/mL Inject 1 mL intramuscularly once every month. Syringe with Needle, Safety (BD INTEGRA) 3 mL 23 gauge x 1 1 Each once every month. warfarin (COUMADIN) 2 mg tablet 2 mg Wed, 3 mg all other days or as directed warfarin (COUMADIN) 1 mg tablet 2 mg Wed, 3 mg all other days or as directed ergocalciferol 50,000 unit capsule (VITAMIN D2, DRISDOL) TAKE 2 CAPSULES BY MOUTH ONCE A WEEK levothyroxine (SYNTHROID) 112 mcg tablet Take 1 tablet by mouth once daily. atorvastatin (LIPITOR) 10 mg tablet Take 1 tablet by mouth once daily. anastrozole (ARIMIDEX) 1 mg tablet Take 1 tablet by mouth once daily. metoprolol succinate ER (TOPROL XL) 25 mg 24 hr tablet Take 1 tablet by mouth once daily. acetaminophen (TYLENOL EXTRA STRENGTH) 500 mg tablet Take 2 tablets by mouth every 6 hours as needed for pain. diclofenac (VOLTAREN) 1 % topical gel Apply 2 g to affected area four times daily as needed. Knee pain for arthritis HUMALOG U-100 INSULIN 100 unit/mL injection Inject subcutaneously, through the insulin pump, max 85 units daily melatonin 10 mg cap Take by mouth. Magnesium 200 mg tab Take by mouth. estradiol (ESTRACE) 0.01 % (0.1 mg/gram) vaginal cream APPLY A FINGERTIP AMOUNT EVERY OTHER DAY DIRECTED blood sugar diagnostic (CONTOUR NEXT TEST STRIPS) test strip Dx: Dm1, use of insulin, up to 4 strips per day, Use as instructed. Urine Glucose-Ketones Test (KETO-DIASTIX) strp 1 Strip as needed. blood-glucose meter, wireless (CONTOUR NEXT LINK) kit 1 Device as directed. Dx: type 1 diabetes, insulin ketoconazole (NIZORAL) 2 % shampoo Apply 1 application to affected area once daily as needed. 0.9 % SODIUM CHLORIDE (0.9% NACL) Access implanted vascular access device (IVAD) as needed for flush, blood draw or treatment. Flush IVAD with 10-20 mL NS every 4 weeks and PRN when IVAD not in use. heparin 100 unit/mL injection Access implanted vascular access device (IVAD) as needed for flush, blood draw or treatment. Before de-accessing port, flush with 10-20ml normal saline and follow with 5 mL heparin (100 units/mL) (if no heparin allergy). De-access port on treatment completion. Insulin Pump Syringe ([employer] RES 3CC/22GX1/2) 3 mL misc Change site every 3 days COMPOUNDED PRESCRIPTION Enlite Sensors change sensor every 6 days COMPOUNDED PRESCRIPTION Insulin pump supplies faxed to [facility] Medical glucagon, human recombinant, (GLUCAGON EMERGENCY) 1 mg injection Inject 1 mg subcutaneously. INJECT FOR INSULIN SHOCK vitamin b complex(B COMPLEX 1 TAB) Take one(1) tablet daily. ubidecarenone(CO Q-10 100 MG CAP) Take one(1) capsule daily. warfarin (COUMADIN) 1 mg tablet 2 mg Wed, 3 mg all other days or as directed Current Facility-Administered Medications Medication Dose Route Frequency cyanocobalamin 1,000 mcg injection 1,000 mcg INTRAMUSCULAR q 4 WEEKS cyanocobalamin 1,000 mcg injection 1,000 mcg INTRAMUSCULAR As Directed perflutren lipid microspheres 1.3 mL in NaCl (PF) 0.9% 10 mL injection (DEFINITY) INTRAVENOUS DIRECTED PRN sodium chloride 0.9 % (flush) 10 mL (BD POSIFLUSH) 10 mL INTRAVENOUS DIRECTED PRN ALLERGIES Allergen Reactions Demerol [Meperidine* GI Upset Versed [Midazolam H* GI Upset Anesthetic Agent [O* Codeine loses consciousness;can take percocet with no problem Lisinopril Diarrhea Percocet [Oxycodone* Mental Status Change, GI Upset Social History Tobacco Use Smoking status: Former Years: 4.00 Types: Cigarettes Smokeless tobacco: Never Tobacco comments: quit age 26 Vaping Use Vaping Use: Never used Substance Use Topics Alcohol use: No Drug use: No ROS: See HPI PE: BP 116/60 Pulse 72 Temp (Src) 97 (Left Tympanic) Resp 16 Wt 157 lb (71.2kg) Gen: A&OX3, NAD, non-toxic appearing HEENT: PERRLA, EOMs intact b/l, nares without drainage, pharynx without erythema, exudate, lesions, or drainage. Uvula midline. Neck: No LAD, no thyromegaly, no meningismus. CV: RRR, no murmur Lungs: CTA b/l, no wheezing Skin: No rashes, lesions, or wounds on exposed skin. No edema, legs Abdomen, mildly distended, normal BS, ND Thoracic kyphosis Gait slowed but stable Insulin pump in abdominal wall ASSESSMENT/PLAN: 1. Hypothyroidism, acquired - ICD9: 244.9, ICD10: E03.9 (primary diagnosis) - Instructed patient on importance of taking on an empty stomach either first thing in the morning or at bedtime. - continue current dose of Synthroid Stable - Behavioral intervention and - Eat well program - COMP METABOLIC PANEL - CBC + DIFF - TSH BLD - T4 FREE/FREE THYROX 2. Vitamin B12 deficiency - ICD9: 266.2, ICD10: E53.8 Continue monthly vitamin B12 injections- tolerating well. Doesn't feel she is able to do these at home on herself. - CYANOCOBALAMIN (VIT B-12) 1,000 MCG/ML INJECTION SOLUTION - VITAMIN B12 BLOOD 3. Dysuria - ICD9: 788.1, ICD10: R30.0 Recheck urinalysis and urine culture as ordered. - URINALYSIS, WITH MICROSCOPIC - URINE CULTURE 4. Screening for colon cancer - ICD9: V76.51, ICD10: Z12.11 - COLOGUARD 5. Vitamin D deficiency - ICD9: 268.9, ICD10: E55.9 Continue supplement - VITAMIN D 25 HYDROXY 6. 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, 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, on [facility] insulin pump (HCC) - ICD9: 250.91, V45.85, ICD10: E10.8, Z96.41 Follow up with Tobacco Warehouse Agent - HGB A1C 7. Malignant neoplasm of both ovaries (HCC) - ICD9: 183.0, ICD10: C56.3 F/u with Oncologist, she isn't on her chemotherapy due to her choice, she is aware of risk etc. - CA 125 BLD 8. Fatigue, unspecified type - ICD9: 780.79, ICD10: R53.83 Recheck labs, continue vitamin B12 injections and vitamin D supplement 9. Pure hypercholesterolemia - ICD9: 272.0, ICD10: E78.00 - stable. 10. Essential hypertension, benign - ICD9: 401.1, ICD10: I10 - good control - Encouraged dietary sodium restriction/DASH diet - Recommended regular aerobic exercise. - Recommend home blood pressure monitoring, to bring results in on next visit - Goal of BP <130/80 Melchor Washington DO Return if no improvement. Follow up with Melchor Washington DO. To ER if develops chest pain, shortness of breath Discussed risks, benefits, alternatives, and potential side effects of medications. Patient/Guardian expressed understanding and agreed with the plan. See patient instructions. Melchor Washington DO [address] [place] [address] documented in this encounter [facility] 03-16-2022 History of Present illness Narrative Per pt demographics she wants notified via [employer] of instructions. Notified pt that OC Provider recommends she continue the same dosage and f/u in 2 weeks rather then 4 weeks as scheduled. Offered to assist pt in getting r/s . Wait on pt response. Tracker updated. Ember Grant Ma Stay with same dose I would suggest recheck in 2 weeks, since she had a recent dose change Simone Tai MD patient had inr completed at [facility] patients inr is 2.8 (patients inr range is 2.0-3.0) patient is currently taking 2mg Mon,Wed and 3mg all other days patients last dose change was on 02/22/22 due to a low level of 1.6 (dose at that time was 3mg Tues,Thurs,Sun and 2mg all other days) patient has had no changes in medication and no missed doses and no change in diet Advised patient to continue on the same dose(s) and that they would only be contacted regarding dosage and follow up instructions after review with provider, if a change is needed. Written instructions given and patient verbalized understanding. Presently scheduled in 4 weeks (04/17/22) for follow up INR. documented in this encounter [facility] 03-08-2022 Miscellaneous Notes Orders signed. Thank you, Roberta Elizabeth APRN.[employer] patients orders for coumadin clinic inr's has at this time. new order has been pended for approval if possible so that patient can continue to get inr's completed thru the coumadin clinic. coumadin clinic nurse only needs called if order can not be approved. documented in this encounter [facility] 03-02-2022 History of Present illness Narrative I agree with the advice given; stay same and recheck in 2 weeks Simone Tai MD patient had inr completed at [facility] patients inr is 2.3 (patients inr range is 2.0-3.0) patient is currently taking 2mg Mon,Wed and 3mg all other days patients last dose change was on 02/22/22 due to a low level of 1.6 (dose at that time was 3mg Tues,thurs Sun and 3mg all other days) patient has had no changes in medication except for coumadin and no missed doses and no change in diet Advised patient to continue on the same dose(s) and that they would only be contacted regarding dosage and follow up instructions after review with provider, if a change is needed. Written instructions given and patient verbalized understanding. Presently scheduled in 2 weeks (03/16/22) for follow up INR since this is the first normal reading since dose change documented in this encounter [facility] 02-23-2022 Miscellaneous Notes Spoke with pt and she states she received the B12 prescription and syringes in the mail from [facility]. She will let us know if there is anything else that needs to be done. Pt states she would prefer we supply the medication instead of having it sent to her. Pt will check with her insurance on this. Marycruz Pepe LPN This number is for a medical alert center not [facility]. Tried to call pt for correct number. Line was busy.Will need to try back. Ok for this, are we able to give [employer] a call? Kapil Guillen APRN.FERNY Pt called and states she spoke with her insurance and her Doctor needs to call [phone] [employer] and states that it is an emergency for her to get the Vit B12 injection once a month and then they will pay for this. Please advise pt if there is any problem. Marycruz Pepe LPN documented in this encounter [facility] 02-22-2022 Miscellaneous Notes Pt. informed. Bernice Deng LPN Increase dose to 3 mg on Tues, Thurs, Fri, Sat, Sun and 2 mg other days of the week, recheck INR in 1 week Melchor Washington DO Last INR: INR 1.6 02/22/2022 Current dose of coumadin is: 3mg Tues,Thurs,Sun and 2mg all other days. Last date of dose change: 01/18/22. Previous INR (date and result): 02/08/22 INR: 2.5 Additional Clinical Information or narrative: no documented in this encounter [facility] 02-14-2022 History of Present illness Narrative Patient presents for B-12 injection. Denies any problems at this time. Brought own medication. Patient instructed on any SE of medication, verbalized understanding and agreed to proceed with treatment. Tolerated injection well. Patient chose to not proceed with self-injection teaching at this time. Shilpi Orellana LPN documented in this encounter [facility] 02-08-2022 History of Present illness Narrative Agree with below Melchor Washington DO patient had inr completed at [facility] patients inr is 2.5 (patients inr range is 2.0-3.0) patient is currently taking 3mg Tues,Thurs,Sun and 2mg all other days patients last dose change was on 01/18/22 due to a high level of 4.2 (dose at that time was 2mg Mon,Wed,Fri and 3mg all other days) patient has had no changes in medication and no missed doses and no change in diet Advised patient to continue on the same dose(s) and that they would only be contacted regarding dosage and follow up instructions after review with provider, if a change is needed. Written instructions given and patient verbalized understanding. Presently scheduled in 2 weeks (02/22/22 with other blood work) for follow up INR. documented in this encounter [facility] 01-31-2022 Miscellaneous Notes The following approved medication requests have been transmitted electronically. Requested Prescriptions Signed Prescriptions Disp Refills cyanocobalamin 1,000 mcg/mL 3 mL 3 Sig: Inject 1 mL intramuscularly once every month. Authorizing Provider: MELCHOR WASHINGTON Syringe with Needle, Safety (BD INTEGRA) 3 mL 23 gauge x 1 3 Each 3 Si Each once every month. Authorizing Provider: MELCHOR WASHINGTON DO Patient states that she would like to do self- injections for B-12; will have her granddaughter help her. 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 Needs to have orders for medication and syringes sent to mail order pharmacy at this time. Please review and advise. Shilpi Orellana LPN documented in this encounter [facility] 01-31-2022 History of Present illness Narrative Patient presents for B-12 injection. Denies any problems at this time. Patient instructed on any SE of medication, verbalized understanding and agreed to proceed with treatment. Tolerated injection well. Shilpi Orellana LPN documented in this encounter [facility] 01-25-2022 History of Present illness Narrative Continue same dose, recheck INR as scheduled in 2 weeks. Melchor Washington DO patient had inr completed at [facility] patients inr is 2.5 (patients inr range is 2.0-3.0) patient is currently taking 3mg Tues,Thurs, Sun and 2mg all other days patients last dose change was on 01/18/22 due to a high level of 4.2 (dose at that time was 2mg Mon,Wed,Fri and 3mg all other days) patient has had no changes in medication except for coumadin and no missed doses and no change in diet Advised patient to continue on the same dose(s) and that they would only be contacted regarding dosage and follow up instructions after review with provider, if a change is needed. Written instructions given and patient verbalized understanding. Presently scheduled in 2 weeks (02/08/22) for follow up INR. documented in this encounter [facility] 01-19-2022 History of Present illness Narrative Patient presents for B-12 injection. Denies any problems at this time. Patient instructed on any SE of medication, verbalized understanding and agreed to proceed with treatment. Tolerated injection well. Shilpi Orellana LPN documented in this encounter [facility] 01-18-2022 Miscellaneous Notes Pt. informed. Cut down dose to 2 mg on Mon, Wed, Fri, Sat, 3 mg on other days of the week Recheck INR 1 week Melchor Washington DO Last INR: INR 4.2 01/18/2022 Current dose of coumadin is: 2mg Mon,Wed,Fri and 3mg all other days. Last date of dose change: 12/31 3.7. Previous INR (date and result): 01/05 2.7 Additional Clinical Information or narrative: no documented in this encounter [facility] 01-18-2022 History of Present illness Narrative Patient is here for IVAD port flush/blood draw per Nursing Godfrey protocol. IVAD is located in right upper chest. Site cleansed with Chloraprep IVAD accessed with a #20 gauge 3/4 non-coring Gripper needle Flush with 5cc's Normal Saline. Blood Return: Good. 10 cc's blood aspirated and discarded. Blood drawn for PT/INR. Flushed with: 20 ml Normal Saline and 5 ml Heparin Lock Flush. Non-coring needle removed. Paper tape applied to puncture site. Site negative for redness, edema or tenderness. Patient tolerated procedure well. documented in this encounter [facility] 01-12-2022 History of Present illness Narrative Patient presents for B-12 injection. Denies any problems at this time. Patient instructed on any SE of medication, verbalized understanding and agreed to proceed with treatment. Tolerated injection well. Shilpi Orellana LPN documented in this encounter [facility] 01-10-2022 Miscellaneous Notes Last OV: 12/14/21 - Next scheduled appt: 03/20/22. Parul Stanley LPN Patient has been identified by name and date of : Yes Requested Prescriptions Pending Prescriptions Disp Refills warfarin (COUMADIN) 2 mg tablet 90 tablet 3 Si mg Wed, 3 mg all other days or as directed warfarin (COUMADIN) 1 mg tablet Si mg Wed, 3 mg all other days or as directed RX INSTRUCTIONS: Patient aware RX will be sent to pharmacy. No need to notify patient. Sirisha Du documented in this encounter [facility] 01-05-2022 History of Present illness Narrative No changes in coumadin dosing needed. Agree with next INR check. patient had inr completed at [facility] patients inr is 2.7 (patients inr range is 2.0-3.0) patient is currently taking 2mg Mon,Wed,Fri and 3mg all other days patients last dose change was on 12/29/21 due to a high level of 3.7 (dose at that time was 2mg Wed,Thurs and 3mg all other days) patient has had no changes in medication except for coumadin and no uninstructed missed doses and no change in diet Advised patient to continue on the same dose(s) and that they would only be contacted regarding dosage and follow up instructions after review with provider, if a change is needed. Written instructions given and patient verbalized understanding. Presently scheduled in 2 weeks (01/18/22 - via blood draw as she has to get lab work complete for oncology - order is already in place) for follow up INR. documented in this encounter [facility] 01-05-2022 History of Present illness Narrative Patient presents for B-12 injection. Denies any problems at this time. Patient instructed on any SE of medication, verbalized understanding and agreed to proceed with treatment. Tolerated injection well. Shilpi Orellana LPN documented in this encounter [facility] 01-05-2022 Miscellaneous Notes Pt informed, verbalized understanding Alondra Wang Ma The CA 125 level has to be on her my chart since it is resulted. It is 60, please inform Melchor Washington DO Images from the original note were not included. Please see pt message and advise Lisa Azul to P [facility] My Chart Rx Pool (supporting Melchor Washington DO) 4:51 PM CA125 on Dec 27, is not on my chart. I need that test done every month when I get my port accessed,and it's important that I get the result. KKW documented in this encounter [facility] 01-02-2022 Miscellaneous Notes Please see TE 01/02 Alondra Wang Ma documented in this encounter [facility] 12-29-2021 History of Present illness Narrative Patient instructed of dosage with teach back method. Verbalizes understanding. Hold x 1 day, then 2 mg on MWF, 3 mg a day rest of the week. Recheck one week patient had inr completed at [facility] patients inr is 3.7 (patients inr range is 2.0-3.0) patient is currently taking 2mg Sun, and 3mg all other days patients last dose change was on 12/21/21 due to a high level of 3.3 (dose at that time was 2mg Wed and 3mg all other days) patient has had no changes in medication except for coumadin and no missed doses and no change in diet Advised patient that they would be contacted regarding medication dose and when to follow up after information is reviewed by provider. After provider review please contact the patient with information and schedule follow up appointment with coumadin clinic. ok to leave a detailed message if no answer FYI - patient has been scheduled for a 1 week follow up inr on 01/05/22 documented in this encounter [facility] 12-27-2021 History of Present illness Narrative Patient presents for B-12 injection. Denies any problems at this time. Patient instructed on any SE of medication, verbalized understanding and agreed to proceed with treatment. Tolerated injection well. Shilpi Orellana LPN documented in this encounter [facility] 12-27-2021 Miscellaneous Notes Appt scheduled with nurse for B12 injection. Pt transferred to schedule with hem/onc. Parul Stanley LPN Patient checking on reply and given provider's message. Patient will call back to schedule B12 inj with [place] Nurse. Notified order for CA 125 is in lab. Patient reports she has a port and will call hematology to draw CA 125 from port. Patient states she has to get off of phone b/c her meeting is starting and will call back. Please help her set up [place] for vitamin B12 injections as ordered Melchor Washington DO Patient returned call and given providers message below. Patient states she is agreeable to have the injections, but is not at all interested in giving them to herself. Also, please clarify- you wrote every 4 weeks for 1st month. I think you meant every week for 1st month? Patient reports the CA 125 on 12-21-21 is 97. States there is no way that is 97, the lab had to have made a mistake, and patient doesn't think she should be charged for that. Reports it's never been that low. Asking Dr. Washington to please order another one, and she will come to lab for re-draw. Please advise patient. Please inform patient that her vitamin D level is normal. Her vitamin B12 levels are low normal. Would she like to start on vitamin B12 injectable every 4 weeks for 1st month, then every 2 weeks for 2nd month then monthly? If so, I could bring her into office for a nurse visit for first injection then will give rx for her to be able to do at home if interested. Melchor Washington DO documented in this encounter [facility] 12-27-2021 Miscellaneous Notes Pt. informed message left on VM. Bernice Deng LPN Order placed, please inform patient Melchor Washington DO Patient reports she has noted her recent CA 125 BLD result is 97 (on 12/21). She states 4 weeks ago it was 1043. She states the recent result cannot be accurate and would like it reordered. She states she gets her labs drawn via her port, at [facility] where the chemo is given. Please advise patient. Thank you. documented in this encounter [facility] 12-21-2021 Miscellaneous Notes Patient notified of results, verbalizes understanding of instructions. Tracke updated. Tonja Turcios MA Decrease dose to 2 mg on Wed and Thurs and 3 mg the other days of the week, recheck INR 1 week Melchor Washington DO Current INR: 3.3 12/21/21 Current dose of coumadin is: 2 mg on Wed and 3 mg all other days of the week for coumadin, recheck INR 1 week Previous INR (date and result): 1.9 11/23/21 Additional Clinical Information or narrative: no documented in this encounter [facility] 12-14-2021 History of Present illness Narrative CC:Jerica Azul is a 81 year old female who presents to the office for follow up HPI: Seen in office 2 months ago on 10/19/21 At that time Peritoneal adenocarcinoma, malignant neoplasm ovaries, has recently told DIRECT SUPPORT WORKER Oncologist that she wants to stop treatments- feels she is getting so many side effects and doesn't feel well. Understands that this places a shorter life expectancy but she states I already feel better though and that is worth it to me. Type 1 diabetes, managed with her insulin pump, seeing Dr. Ross Tobacco Warehouse Agent, needing labs rechecked with port flush, asking for these to be ordered Situational insomnia, anxiety at night, long standing, trying supplements at this time over the counter including melatonin and magnesium. Wants to try this before starting another medication Currently She feels her anxiety and insomnia symptoms have improved. She is taking the melatonin and magnesium supplement more regularly and is working on diet modifications and trying to be more physically active. Type 1 diabetes, overall has been stable. Seeing Dr. Ross for care Peritoneal adenocarcinoma. Chronic coumadin due to hypercoagulability. Wanting to increase her green vegetables and fresh fruits to help with cancer related nutrition. She is not taking her chemo treatments any longer due to the side effects. She feels her symptoms are improving. PAST MEDICAL HISTORY Diagnosis Date Absence of menstruation DDD (degenerative disc disease), lumbar Disorder of bone and cartilage, unspecified 07/24/02 Nondiabetic proliferative retinopathy mild-last visit 08/13/[address] 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) Insulin Pump, age 11 diagnosis Umbilical hernia without mention of obstruction or gangrene Urinary tract infection, site not specified Recurrent UTI's PAST SURGICAL HISTORY Procedure Laterality Date APPENDECTOMY DELIVERY ONLY , low cervical COLONOSCOPY FLX DX W/COLLJ SPEC WHEN PFRMD 01/2002 and 11/2006 Colonoscopy INSJ TUNNELED CTR VAD W/SUBQ PORT AGE 5 YR/> Right 05/15/2016 LIG/TRNSXJ FLP TUBE ABDL/VAG APPR UNI/BI PAST SURGICAL HISTORY OF Right carpal tunnel PAST SURGICAL HISTORY OF Bilateral cataract sx PAST SURGICAL HISTORY OF torticollis PAST SURGICAL HISTORY OF 09/10/2008 PROCEDURE CANCELLED- LEFT- UNABLE TO VISUALIZE- PAST SURGICAL HISTORY OF Bilateral Lasers in both eyes PAST SURGICAL HISTORY OF 05/13/2021 Diagnostic laparoscopy RPR UMBILICAL HRNA 5 YRS/> REDUCIBLE 10/17/2004 Hernia repair, umbilical, removal of internal insulin punmp SKIN BX, 1 LESION 05/13/2008 Punch bx skin of forehead TONSILLECTOMY PRIMARY/SECONDARY <AGE 12 Tonsillectomy TOTAL ABDOMINAL HYSTERECT W/WO RMVL TUBE OVARY 11/30/2006 Hysterectomy, KHOI, BSO US BREAST NEEDLE CORE BIOPSY LT 09/17/[address] Current Outpatient Medications Medication Sig warfarin (COUMADIN) 2 mg tablet 2 mg Wed, 3 mg all other days or as directed warfarin (COUMADIN) 1 mg tablet 2 mg Wed, 3 mg all other days or as directed warfarin (COUMADIN) 1 mg tablet 2 mg Wed, 3 mg all other days or as directed ergocalciferol 50,000 unit capsule (VITAMIN D2, DRISDOL) TAKE 2 CAPSULES BY MOUTH ONCE A WEEK levothyroxine (SYNTHROID) 112 mcg tablet Take 1 tablet by mouth once daily. atorvastatin (LIPITOR) 10 mg tablet Take 1 tablet by mouth once daily. anastrozole (ARIMIDEX) 1 mg tablet Take 1 tablet by mouth once daily. metoprolol succinate ER (TOPROL XL) 25 mg 24 hr tablet Take 1 tablet by mouth once daily. acetaminophen (TYLENOL EXTRA STRENGTH) 500 mg tablet Take 2 tablets by mouth every 6 hours as needed for pain. diclofenac (VOLTAREN) 1 % topical gel Apply 2 g to affected area four times daily as needed. Knee pain for arthritis HUMALOG U-100 INSULIN 100 unit/mL injection Inject subcutaneously, through the insulin pump, max 85 units daily melatonin 10 mg cap Take by mouth. Magnesium 200 mg tab Take by mouth. estradiol (ESTRACE) 0.01 % (0.1 mg/gram) vaginal cream APPLY A FINGERTIP AMOUNT EVERY OTHER DAY DIRECTED blood sugar diagnostic (CONTOUR NEXT TEST STRIPS) test strip Dx: Dm1, use of insulin, up to 4 strips per day, Use as instructed. Urine Glucose-Ketones Test (KETO-DIASTIX) strp 1 Strip as needed. blood-glucose meter, wireless (CONTOUR NEXT LINK) kit 1 Device as directed. Dx: type 1 diabetes, insulin ketoconazole (NIZORAL) 2 % shampoo Apply 1 application to affected area once daily as needed. 0.9 % SODIUM CHLORIDE (0.9% NACL) Access implanted vascular access device (IVAD) as needed for flush, blood draw or treatment. Flush IVAD with 10-20 mL NS every 4 weeks and PRN when IVAD not in use. heparin 100 unit/mL injection Access implanted vascular access device (IVAD) as needed for flush, blood draw or treatment. Before de-accessing port, flush with 10-20ml normal saline and follow with 5 mL heparin (100 units/mL) (if no heparin allergy). De-access port on treatment completion. Insulin Pump Syringe (MINIMED SYR RES 3CC/22GX1/2) 3 mL misc Change site every 3 days COMPOUNDED PRESCRIPTION Enlite Sensors change sensor every 6 days COMPOUNDED PRESCRIPTION Insulin pump supplies faxed to [facility] Medical glucagon, human recombinant, (GLUCAGON EMERGENCY) 1 mg injection Inject 1 mg subcutaneously. INJECT FOR INSULIN SHOCK vitamin b complex(B COMPLEX 1 TAB) Take one(1) tablet daily. ubidecarenone(CO Q-10 100 MG CAP) Take one(1) capsule daily. Current Facility-Administered Medications Medication Dose Route Frequency perflutren lipid microspheres 1.3 mL in NaCl (PF) 0.9% 10 mL injection (DEFINITY) INTRAVENOUS DIRECTED PRN sodium chloride 0.9 % (flush) 10 mL (BD POSIFLUSH) 10 mL INTRAVENOUS DIRECTED PRN ALLERGIES Allergen Reactions Demerol [Meperidine* GI Upset Versed [Midazolam H* GI Upset Anesthetic Agent [O* Codeine loses consciousness;can take percocet with no problem Lisinopril Diarrhea Percocet [Oxycodone* Mental Status Change, GI Upset Social History Tobacco Use Smoking status: Former Years: 4.00 Types: Cigarettes Smokeless tobacco: Never Tobacco comments: quit age 26 Vaping Use Vaping Use: Never used Substance Use Topics Alcohol use: No Drug use: No ROS: See HPI PE: BP 120/60 Pulse 80 Temp (Src) 97.5 (Left Tympanic) Resp 16 Wt 155 lb (70.3kg) Gen: A&OX3, NAD, non-toxic appearing HEENT: PERRLA, EOMs intact b/l, nares without drainage, pharynx without erythema, exudate, lesions, or drainage. Uvula midline. Neck: No LAD, no thyromegaly, no meningismus. CV: RRR, no murmur Lungs: CTA b/l, no wheezing Skin: No rashes, lesions, or wounds on exposed skin. No edema, legs Abdomen, mildly distended, normal BS, ND Thoracic kyphosis Gait slowed but stable Insulin pump in abdominal wall ASSESSMENT/PLAN: 1. Need for COVID-19 vaccine - ICD9: V04.89, ICD10: Z23 (primary diagnosis) - [employer] COVID-19 BIVALENT BOOSTER VACCINE, AGE 12+ YR 2. Vitamin B12 deficiency - ICD9: 266.2, ICD10: E53.8 Recheck labs, has chronic fatigue, if levels are still low despite oral supplementation, may need to consider injections. - VITAMIN B12 BLOOD 3. Vitamin D deficiency - ICD9: 268.9, ICD10: E55.9 - see above, continue supplement - VITAMIN D 25 HYDROXY 4. Chronic anticoagulation - ICD9: V58.61, ICD10: Z79.01 - needs to continue warfarin since she is hypercoagulable with malignancy 5. 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, 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, 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) - ICD9: 250.91, V45.85, ICD10: E10.8, Z96.41 Mgmt per Tobacco Warehouse Agent - CBC + DIFF - COMP METABOLIC PANEL 6. Hypothyroidism, acquired - ICD9: 244.9, ICD10: E03.9 - Instructed patient on importance of taking on an empty stomach either first thing in the morning or at bedtime. Stable - Continue current medications - CBC + DIFF - COMP METABOLIC PANEL Melchor Washington DO Return if no improvement. Follow up with Melchor Washington DO. To ER if develops chest pain, shortness of breath Discussed risks, benefits, alternatives, and potential side effects of medications. Patient/Guardian expressed understanding and agreed with the plan. See patient instructions. Melchor Washington DO [address] [place] [address] documented in this encounter [facility] 11-24-2021 Miscellaneous Notes Detailed message left on pt identified VM. Tracker and med list updated. Venus Og Ma Change dose to 2 mg on Wed and 3 mg all other days of the week for coumadin, recheck INR 1 week Melchor Washington DO Last INR: INR 1.5 11/23/2021 Current dose of coumadin is: 2 mg (2 mg x 1) every Mon, Wed, Fri; 3 mg (2 mg x 1 and 1 mg x 1) all other days. Previous INR (date and result): 10/31 1.9 Additional Clinical Information or narrative: no documented in this encounter [facility] 10-31-2021 History of Present illness Narrative Pt. informed. Bernice Deng LPN Increase coumadin to 3 mg Tues, Thurs, Sat, Sun and 2 mg other days of week, recheck INR as scheduled Melchor Washington DO patient had inr completed at [facility] patients inr is 1.9 (patients inr range is 2.0-3.0) patient is currently taking 3mg Tues,Thurs,Sat and 2mg all other days patients last dose change was on 10/17/21 due to a low level of 1.8 (dose at that time was 3mg Tues,Thurs and 2mg all other days) patient has had no changes in medication except for coumadin and no missed doses and no change in diet Advised patient that they would be contacted regarding medication dose and when to follow up after information is reviewed by provider. After provider review please contact the patient with information and schedule follow up appointment with coumadin clinic. FYI - patient has been scheduled for a 2 week follow up inr on 11/15/21 documented in this encounter [facility] 10-25-2021 Miscellaneous Notes Patient calls to request provider place an order for recurring port access to receive CA 125 monthly and any labs provider would want drawn. Order not pended as uncertain of what is needed for order completion. Please review and advise, Roseann Green RN documented in this encounter [facility] 10-19-2021 History of Present illness Narrative CC: Jerica Azul is a 81 year old female who presents to the office for follow up HPI: Peritoneal adenocarcinoma, malignant neoplasm ovaries, has recently told DIRECT SUPPORT WORKER Oncologist that she wants to stop treatments- feels she is getting so many side effects and doesn't feel well. Understands that this places a shorter life expectancy but she states I already feel better though and that is worth it to me. Type 1 diabetes, managed with her insulin pump, seeing Dr. Ross Tobacco Warehouse Agent, needing labs rechecked with port flush, asking for these to be ordered Situational insomnia, anxiety at night, long standing, trying supplements at this time over the counter including melatonin and magnesium. Wants to try this before starting another medication PAST MEDICAL HISTORY Diagnosis Date Absence of menstruation DDD (degenerative disc disease), lumbar Disorder of bone and cartilage, unspecified 07/24/02 Nondiabetic proliferative retinopathy mild-last visit 08/13/[address] 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) Insulin Pump, age 11 diagnosis Umbilical hernia without mention of obstruction or gangrene Urinary tract infection, site not specified Recurrent UTI's PAST SURGICAL HISTORY Procedure Laterality Date APPENDECTOMY DELIVERY ONLY , low cervical COLONOSCOPY FLX DX W/COLLJ SPEC WHEN PFRMD 01/2002 and 11/2006 Colonoscopy INSJ TUNNELED CTR VAD W/SUBQ PORT AGE 5 YR/> Right 05/15/2016 LIG/TRNSXJ FLP TUBE ABDL/VAG APPR UNI/BI PAST SURGICAL HISTORY OF Right carpal tunnel PAST SURGICAL HISTORY OF Bilateral cataract sx PAST SURGICAL HISTORY OF torticollis PAST SURGICAL HISTORY OF 09/10/2008 PROCEDURE CANCELLED- LEFT- UNABLE TO VISUALIZE- PAST SURGICAL HISTORY OF Bilateral Lasers in both eyes PAST SURGICAL HISTORY OF 05/13/2021 Diagnostic laparoscopy RPR UMBILICAL HRNA 5 YRS/> REDUCIBLE 10/17/2004 Hernia repair, umbilical, removal of internal insulin punmp SKIN BX, 1 LESION 05/13/2008 Punch bx skin of forehead TONSILLECTOMY PRIMARY/SECONDARY <AGE 12 Tonsillectomy TOTAL ABDOMINAL HYSTERECT W/WO RMVL TUBE OVARY 11/30/2006 Hysterectomy, KHOI, BSO US BREAST NEEDLE CORE BIOPSY LT 09/17/[address] Current Outpatient Medications Medication Sig warfarin (COUMADIN) 2 mg tablet 1 mg T/TH, 2 mg all other days or as directed. levothyroxine (SYNTHROID) 112 mcg tablet Take 1 tablet by mouth once daily. atorvastatin (LIPITOR) 10 mg tablet Take 1 tablet by mouth once daily. anastrozole (ARIMIDEX) 1 mg tablet Take 1 tablet by mouth once daily. warfarin (COUMADIN) 1 mg tablet 1 mg T/TH, 2 mg all other days or as directed. warfarin (COUMADIN) 1 mg tablet 1 mg T/TH, 2 mg all other days or as directed. metoprolol succinate ER (TOPROL XL) 25 mg 24 hr tablet Take 1 tablet by mouth once daily. ergocalciferol 50,000 unit capsule (VITAMIN D2, DRISDOL) TAKE 2 CAPSULES BY MOUTH ONCE A WEEK acetaminophen (TYLENOL EXTRA STRENGTH) 500 mg tablet Take 2 tablets by mouth every 6 hours as needed for pain. diclofenac (VOLTAREN) 1 % topical gel Apply 2 g to affected area four times daily as needed. Knee pain for arthritis HUMALOG U-100 INSULIN 100 unit/mL injection Inject subcutaneously, through the insulin pump, max 85 units daily melatonin 10 mg cap Take by mouth. estradiol (ESTRACE) 0.01 % (0.1 mg/gram) vaginal cream APPLY A FINGERTIP AMOUNT EVERY OTHER DAY DIRECTED blood sugar diagnostic (CONTOUR NEXT TEST STRIPS) test strip Dx: Dm1, use of insulin, up to 4 strips per day, Use as instructed. Urine Glucose-Ketones Test (KETO-DIASTIX) strp 1 Strip as needed. blood-glucose meter, wireless (CONTOUR NEXT LINK) kit 1 Device as directed. Dx: type 1 diabetes, insulin glucagon, human recombinant, (GLUCAGON EMERGENCY) 1 mg injection Inject 1 mg subcutaneously. INJECT FOR INSULIN SHOCK vitamin b complex(B COMPLEX 1 TAB) Take one(1) tablet daily. Magnesium 200 mg tab Take by mouth. ketoconazole (NIZORAL) 2 % shampoo Apply 1 application to affected area once daily as needed. 0.9 % SODIUM CHLORIDE (0.9% NACL) Access implanted vascular access device (IVAD) as needed for flush, blood draw or treatment. Flush IVAD with 10-20 mL NS every 4 weeks and PRN when IVAD not in use. heparin 100 unit/mL injection Access implanted vascular access device (IVAD) as needed for flush, blood draw or treatment. Before de-accessing port, flush with 10-20ml normal saline and follow with 5 mL heparin (100 units/mL) (if no heparin allergy). De-access port on treatment completion. Insulin Pump Syringe (MINIMED SYR RES 3CC/22GX1/2) 3 mL misc Change site every 3 days COMPOUNDED PRESCRIPTION Enlite Sensors change sensor every 6 days COMPOUNDED PRESCRIPTION Insulin pump supplies faxed to [facility] Medical ubidecarenone(CO Q-10 100 MG CAP) Take one(1) capsule daily. Current Facility-Administered Medications Medication Dose Route Frequency perflutren lipid microspheres 1.3 mL in NaCl (PF) 0.9% 10 mL injection (DEFINITY) INTRAVENOUS DIRECTED PRN sodium chloride 0.9 % (flush) 10 mL (BD POSIFLUSH) 10 mL INTRAVENOUS DIRECTED PRN ALLERGIES Allergen Reactions Demerol [Meperidine* GI Upset Versed [Midazolam H* GI Upset Anesthetic Agent [O* Codeine loses consciousness;can take percocet with no problem Lisinopril Diarrhea Percocet [Oxycodone* Mental Status Change, GI Upset Social History Tobacco Use Smoking status: Former Years: 4.00 Types: Cigarettes Smokeless tobacco: Never Tobacco comments: quit age 26 Vaping Use Vaping Use: Never used Substance Use Topics Alcohol use: No Drug use: No ROS: See HPI PE: BP 120/70 Pulse 80 Temp (Src) 97.3 (Left Tympanic) Resp 16 Wt 151 lb (68.5kg) Gen: A&OX3, NAD, non-toxic appearing HEENT: PERRLA, EOMs intact b/l, nares without drainage, pharynx without erythema, exudate, lesions, or drainage. Uvula midline. Neck: No LAD, no thyromegaly, no meningismus. CV: RRR, no murmur Lungs: CTA b/l, no wheezing Skin: No rashes, lesions, or wounds on exposed skin. No edema, legs Abdomen, mildly distended, normal BS, ND Thoracic kyphosis Gait slowed but stable ASSESSMENT/PLAN: 1. Situational insomnia - ICD9: 307.41, ICD10: F51.09 (primary diagnosis) Consider adding on Restoril or Ativan to use prn as d/w her today, she wants to wait to see if supplements she will trying will help first but will call office if needed 2. Vitamin B12 deficiency - ICD9: 266.2, ICD10: E53.8 - restart supplement, recheck labs - VITAMIN B12 BLOOD 3. Vitamin D deficiency - ICD9: 268.9, ICD10: E55.9 - continue supplement, recheck labs - VITAMIN D 25 HYDROXY 4. 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, 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, on [facility] insulin pump (HCC) - ICD9: 250.91, V45.85, ICD10: E10.8, Z96.41 Controlled. - Continue current medications - HGB A1C 5. Pure hypercholesterolemia - ICD9: 272.0, ICD10: E78.00 - continue statin 6. Hypothyroidism, acquired - ICD9: 244.9, ICD10: E03.9 - Instructed patient on importance of taking on an empty stomach either first thing in the morning or at bedtime. Stable - Behavioral intervention - TSH BLD - T4 FREE/FREE THYROX 7. Essential hypertension, benign - ICD9: 401.1, ICD10: I10 - good control - Continue current medication(s) - Encouraged dietary sodium restriction/DASH diet - Recommended regular aerobic exercise. - Recommend home blood pressure monitoring, to bring results in on next visit - Goal of BP <130/80 - COMP METABOLIC PANEL 8. Malignant neoplasm of both ovaries (HCC) - ICD9: 183.0, ICD10: C56.3 She recently intentionally stopped treatment due to adverse SE and not wanting to take these anymore - COMP METABOLIC PANEL - CA 125 BLD - CBC + DIFF Melchor Washington DO Return if no improvement. Follow up with Melchor Washington DO. To ER if develops chest pain, shortness of breath Discussed risks, benefits, alternatives, and potential side effects of medications. Patient/Guardian expressed understanding and agreed with the plan. See patient instructions. Melchor Washington DO [address] [place] [address] documented in this encounter [facility] 10-19-2021 Instructions Melchor Washington DO - 10/19/2021 10:30 AM EDT Magnesium 400-500 mg + Melatonin 5-10 mg together in the evening for sleep documented in this encounter [facility] 10-17-2021 History of Present illness Narrative Pt. informed. Bernice Deng LPN Increase dose of coumadin to 3 mg on tues, th, sat and 2 mg all other days of the week, recheck INR as scheduled Melchor Washington DO patient had inr completed at [facility] patients inr is 1.8 (patients inr range is 2.0-3.0) patient is currently taking 3mg Tues,Thurs and 2mg all other days patients last dose change was on 08/05/21 due to a low level of 1.6 (dose at that time was 2mg daily) patient has had no changes in medication and no missed doses and no change in diet Advised patient that they would be contacted regarding medication dose and when to follow up after information is reviewed by provider. After provider review please contact the patient with information and schedule follow up appointment with coumadin clinic. Fyi - patient has been scheduled for a 2 week follow up inr on 10/31/21 documented in this encounter [facility] 09-22-2021 Miscellaneous Notes Called and spoke with patient. Made patient aware that I was following up because of her last call to our office. Patient stated that she has decided that she does not want to take anymore treatment of any kind. She does not want to deal with the side effects and how it effects her diabetes. I offered patient an appointment/televisit with Dr. Patel or OPTICAL SYSTEMS ENGINEER and patient declined. Patient stated I have made up my mind. I provided emotional support and made patient aware that if she needs any referrals to please call our office. Patient was very appreciative and thanked us for her care. documented in this encounter [facility] 09-20-2021 Miscellaneous Notes Please note: On 07/14/21 this medication was noted as historical med. Patient has been identified by name and date of : Yes Pending Prescriptions Disp Refills WARFARIN 2 MG TABLET 90 tablet 3 Si mg /, 2 mg all other days or as directed. LEX: No RX INSTRUCTIONS: Patient aware RX escripted to mail away pharmacy. No need to notify patient. Bernice Garcia Pss documented in this encounter [facility] 09-19-2021 Miscellaneous Notes Patient phones requesting refills as follows: Pending Prescriptions Disp Refills LEVOTHYROXINE 112 MCG TABLET 90 tablet 3 Sig: Take 1 tablet by mouth once daily. LEX: No ADÁN 07/18/21 NOV 10/19/21 Please review and advise. Darío Miranda LPN documented in this encounter [facility] 09-19-2021 Miscellaneous Notes ADÁN 07/18/21 NOV 10/19/21 adán-- documented in this encounter [facility] 09-19-2021 History of Present illness Narrative Agree with below Melchor Washington DO patient had inr completed at [facility] patients inr is 2.3 (patients inr range is 2.0-3.0) patient is currently taking 3mg Tues,Thurs and 2mg all other days patients last dose change was on 08/05/21 due to a low level of 1.6 (dose at that time was 2mg daily) patient has had no changes in medication and no missed doses and no change in diet Advised patient to continue on the same dose(s) and that they would only be contacted regarding dosage and follow up instructions after review with provider, if a change is needed. Written instructions given and patient verbalized understanding. Presently scheduled in 4 weeks (10/17/21) for follow up INR. documented in this encounter [facility] 09-15-2021 History of Present illness Narrative DATE OF SERVICE: 09/15/2021 PROBLEM: Jerica Azul presents for follow up of chemotherapy (cycle 3 Doxil). DIAGNOSIS: Recurrent primary peritoneal cancer PRIOR HISTORY & TREATMENT: 1) 08/24/2006: Diagnostic laparoscopy with pelvic washing and peritoneal biopsy. 2) Neoadjuvant Taxol 175mg/m2 and Carbo AUC 6 x3 cycles (08/29/2006- 10/10/2006) 3) 11/30/2006: Exploratory laparotomy, total abdominal hysterectomy, bilateral salpingo-oophorectomy, omentectomy, colonoscopy, and IP port placement. 4) Carbo x4 cycles (12/2006-04/02/07) 5)02/21/2016: Exam under anesthesia, diagnostic laparoscopy, laparoscopic lysis of adhesions with reduction of abdominal wall incisional hernia, resection of anterior abdominal wall tumor nodule, left retroperitoneal exploration with left pelvic lymph node dissection. PATHOLOGY: FINAL DIAGNOSIS 1. Peritoneal lesion, biopsy (A) - Metastatic adenocarcinoma. (see comment) 2. Lymph nodes, left pelvis, regional resection (B) - Multiple (5) lymph nodes, negative for carcinoma. 6) Carbo AUC 5 locally in [place] for 6 cycles Q3 weeks (04/05/2016-05/17/2016) 7) 11/02/16: CA125 increasing, monitored and SELENA on CT scans done 04/26/17. Pt declined further scans 8) Maintenance avastin 15mg/kg x30 cycles (08/21/17 - 03/15/21) Switched to q6 weeks with cycle 6 Switch to q8 weeks with cycle 18 per patient preference cycle 31 deferred for diagnostic lap given rising CA125 9) Diagnostic laparoscopy - peritoneal carcinomatosis 10) 06/21/2020 - current: Doxil 40mg/m2 Q28 days x1 cycle. Patient had Doxil infusion reaction with cycle on and was rechallenged the following week (tolerated this infusion without issue). LABS: CA 125 Date Value 08/22/2021 578 U/mL 07/25/2021 371 U/mL 07/08/2021 206 U/mL 06/27/2021 135 U/mL 06/20/2021 143 U/mL 03/15/2021 105 U/mL 02/01/2021 80 U/mL 12/21/2020 75 U/mL 11/09/2020 92 U/mL 09/30/2020 61 U/mL 08/17/2020 55 U/mL 06/22/2020 51 U/mL 04/28/2020 41 U/mL 03/02/2020 27 U/mL 01/06/2020 23 U/mL 11/11/2019 21 U/mL 09/09/2019 19 U/mL 07/15/2019 20 U/mL 04/01/2019 21 U/mL 02/18/2019 21 U/mL 01/07/2019 18 U/mL 11/26/2018 18 U/mL 10/15/2018 19 U/mL 09/03/2018 18 U/mL 07/23/2018 17 U/mL 06/11/2018 19 U/mL 04/30/2018 20 U/mL 03/19/2018 28 U/mL 02/05/2018 27 U/mL 12/20/2017 26.1 11/09/2017 33.4 10/12/2017 34.3 09/14/2017 44.3 08/21/2017 144 U/mL 07/24/2017 242.9 Labs Latest Ref Rng & Units 07/08/2021 07/25/2021 08/05/2021 08/22/2021 WBC 3.70 - 11.00 k/uL 4.66 4.77 - 4.47 ABS NEUT (ANC) 1.45 - 7.50 k/uL 3.12 2.51 - 2.63 AAGRAN 1.45 - 7.50 k/uL - - - - HEMOGLOBIN 11.5 - 15.5 g/dL 13.2 12.8 - 13.0 HEMATOCRIT 36.0 - 46.0 % 40.1 38.7 - 39.2 PLATELETS 150 - 400 k/uL 191 236 - 228 ALBUMIN 3.9 - 4.9 g/dL 3.3(L) 3.5(L) - 3.5(L) ALKALINE PHOSPHATASE 34 - 123 U/L 76 89 - 86 ALT 7 - 38 U/L 21 28 - 31 AST 13 - 35 U/L 27 35 - 36(H) BILIRUBIN, TOTAL 0.2 - 1.3 mg/dL 1.4(H) 0.7 - 0.9 BUN 7 - 21 mg/dL 21 32(H) - 24(H) CALCIUM, TOTAL 8.5 - 10.2 mg/dL 8.4(L) 8.6 - 8.7 CREATININE 0.58 - 0.96 mg/dL 0.79 0.76 - 0.81 GLUCOSE 74 - 99 mg/dL 177(H) 177(H) - 191(H) MAGNESIUM 1.7 - 2.3 mg/dL 1.7 1.7 - 1.7 PHOSPHORUS 2.5 - 4.5 mg/dL - - - - POTASSIUM 3.7 - 5.1 mmol/L 4.2 4.2 - 4.4 PROTEIN, TOTAL 6.3 - 8.0 g/dL 5.8(L) 6.0(L) - 5.7(L) SODIUM 136 - 144 mmol/L 139 139 - 142 TSH 0.270 - 4.200 mIU/L - - 1.680 - FREE T4 0.9 - 1.7 ng/dL - - 1.8(H) - PROTEIN, URINE Neg mg/dL - - - - SUBJECTIVE/ROS: Jerica Azul reports that she feels well. No nausea or vomiting. No shortness of breath, cough, or chest pain. No nausea, vomiting, diarrhea, or constipation. No urinary complaints. She does have pain in her arms/shoulders. No neuropathy. No swelling in extremities. No rashes, skin lesions, blisters or mouth sores. Her ECOG performance status is zero (fully active, able to carry on all pre-disease performance without restriction). 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 Currently on Doxil. Progression on recent CT scans. PLAN: 1. OVCA - Discussed with Dr. Patel-d/c Doxil Discussed options of chemo holiday vs Arimidex (Per Dr. Patel's last chemo discussion) Patient elects to trial Arimidex. Rx sent to pharmacy. 2. Will call patient with appointment in one month with Dr. Patel to re-assess symptoms, and for CA 125 check. 3. Side effects discussed and all questions answered. Es Ritter APRN.FERNY CC: Ramírez Patel Jr., MD A copy of this office note and a letter were sent to: DO Bhanu Sims MD - Grantsilverio Ross MD- home health billing specialist I spent a total of 20 minutes on the date of the service which included preparing to see the patient, completing clinical documentation, counseling and educating the patient/family/caregiver, ordering medications, tests, or procedures and communicating with other HCPs (not separately reported). documented in this encounter [facility] 09-09-2021 History of Present illness Narrative Radiology Service Progress Note PATIENT NAME: Jerica Azul DATE OF SERVICE: September 09, 2021 TIME: 10:07 AM PATIENT IDENTITY VERIFICATION COMPLETED USING TWO (2) IDENTIFIERS: Name and Date of confirmed by patient verbally. FALL SCREENING: Has the patient had 2 falls in the last year or 1 fall with injury or currently using an Ambulatory Assistive Device (Walker, Cane, Wheelchair, Crutches, etc.)? No PATIENT GENDER DATA: Female. status: : No status: NO. PATIENT RELEVANT IMPLANT DATA REVIEWED: Not Applicable RADIOLOGY DEPARTMENT: CT; Exam(s) Completed: Chest Abdomen Pelvis PERIPHERAL IV DATA: Not applicable SIGNED BY: RT Carolee(R) September 09, 2021 10:07 AM documented in this encounter [facility] 08-29-2021 Miscellaneous Notes Pt called and is notified of providers message and instructions. Pt voices understanding. [facility] Denise Lorenzo RN Pt. informed detailed message left on VM. She is to return call and verify message. Bernice Deng LPN Increase dose to 3 mg on and and 2 mg other days of the week, recheck INR 1 week Melchor Washington DO Current INR: 1.6 Current dose; 2mg daily Previous INR 2.1 08/05/2021 Rosalinda Leroy MA documented in this encounter [facility] 08-24-2021 History of Present illness Narrative Oncology Nutrition Progress Note RECOMMENDED MALNUTRITION DIAGNOSIS: NO MALNUTRITION IDENTIFIED per Wilma Hartman RD on 07/26/2021 Some elements copied from my note on 07/26/2021, have been updated and all reflect current decision making from today, 08/24/2021 Patient states reason for visit: continued treatment Nutriscore - No Data Recorded Nutrition Intervention: - Meal pattern & types of foods consumed: - continue to aim for a consistent meal pattern of 3 meals with a evening snack PRN - aim for balanced meals: 1/2 plate non-starchy vegetables, 1/4 plate lean protein, 1/4 plate complex carbohydrates - pair carbohydrates with proteins for better BG control (especially your last meal and evening snack) - OK to continue with Pure Protein shakes or other glucose-controlled supplements such as Boost Glucose Control or Glucerna with a goal for 1 serving per day or PRN - Hydration: - goal for at least 1430 mL/day - Vitamin, mineral, and herbal supplements: - OK to continue vitamin D and B-complex - Medications: - Endocrinology manages DM rx - Physical activity: - gentle movement as tolerated - Referral: - Recommend pt to meet with certified registered nurse anesthetist at the endocrinology institute that manages her DM Nutrition Monitoring & Evaluation: PO intake, weight status, bowel regulation, hydration status, supplement tolerance, biochemical markers, skin integrity, plan of care Date of last encounter: 07/26/2021 Patient met goal(s): Partially Patient's symptoms are: None Interval History: Met with pt in infusion suite. Pt reported feeling well at this time; pt reported appetite is intact and weight is stable. Pt denied n/v/c/d. Reported continues to eat ~3 meals daily; sometimes, but not consistently eating an evening snack. Making an attempt to balance food groups at meal time. Drinking Pure Protein shakes ~once daily. Pt verbalized ongoing BG fluctuations, especially at night. Reported she will go to bed with a reading of ~120 mg/dL, then will wake up in the middle of the night with a low of ~40 mg/dL. Pt reported drinking ~4 ounces of juice or 15 gm glucose in the form of candy does not increase her BG levels. Reported she is looking to make an appointment with her home health billing specialist soon d/t uncertainty r/t how to manage fluctuations. Pt did not wish to provide diet recall during today's visit for detailed review. Encouraged pt to ask questions as needed, encouraged endo follow-up. Reviewed above nutrition interventions, pt verbalized understanding. Nutritional Intake: >75% estimated energy needs over the past 3 week(s) READINESS TO LEARN Cognitive ability: Alert and oriented Motivation to learn: Interested Family support: Unable to assess - Family not present Instruction provided to: Patient Patient learns best by: Multiple Methods Factors affecting learning: None Physical limitations affecting learning: None Educational materials provided: none this visit Anthropometrics: Height: Last 1 Encounter Ht Readings: Date: Ht: 08/24/2021 162.6 cm (5' 4) Current weight: Last 1 Encounter Wt Readings: Date: Wt: 08/24/2021 70.6 kg (155 lb 9.6 oz) Estimated body mass index is 26.71 kg/m as calculated from the following: Height as of an earlier encounter on 08/24/21: 162.6 cm (5' 4). Weight as of an earlier encounter on 08/24/21: 70.6 kg (155 lb 9.6 oz). Resting Metabolic Rate: 1150 Weight Change: relative weight stability x 1 month Dosing Weight: 71.7 kg Estimated kilocalorie needs: 5321-4195 kilocalories determined by 20-25 kcal/kg Estimated protein needs: 71-86 grams determined by 1.0-1.2 g/kg Dosing weight Estimated fluid needs: 6846-8766 milliliters based on 1 mL per kcal Allergies: Demerol [Meperidine (Pf)], Versed [Midazolam Hcl], Anesthetic Agent [Other], Codeine, Lisinopril, and Percocet [Oxycodone-Acetaminophen] Medications: Current Outpatient Medications Medication Sig Dispense Refill warfarin (COUMADIN) 1 mg tablet 1 mg T/TH, 2 mg all other days or as directed. warfarin (COUMADIN) 2 mg tablet 1 mg T/TH, 2 mg all other days or as directed. 90 tablet 3 warfarin (COUMADIN) 1 mg tablet 1 mg T/TH, 2 mg all other days or as directed. 90 tablet 3 metoprolol succinate ER (TOPROL XL) 25 mg 24 hr tablet Take 1 tablet by mouth once daily. 90 tablet 3 ergocalciferol 50,000 unit capsule (VITAMIN D2, DRISDOL) TAKE 2 CAPSULES BY MOUTH ONCE A WEEK 24 capsule 3 acetaminophen (TYLENOL EXTRA STRENGTH) 500 mg tablet Take 2 tablets by mouth every 6 hours as needed for pain. 60 tablet 0 levothyroxine (SYNTHROID) 112 mcg tablet Take 1 tablet by mouth once daily. 90 tablet 3 diclofenac (VOLTAREN) 1 % topical gel Apply 2 g to affected area four times daily as needed. Knee pain for arthritis 120 g 3 HUMALOG U-100 INSULIN 100 unit/mL injection Inject subcutaneously, through the insulin pump, max 85 units daily atorvastatin (LIPITOR) 10 mg tablet Take 1 tablet by mouth once daily. 90 tablet 3 melatonin 10 mg cap Take by mouth. Magnesium 200 mg tab Take by mouth. estradiol (ESTRACE) 0.01 % (0.1 mg/gram) vaginal cream APPLY A FINGERTIP AMOUNT EVERY OTHER DAY DIRECTED 85 g 3 blood sugar diagnostic (CONTOUR NEXT TEST STRIPS) test strip Dx: Dm1, use of insulin, up to 4 strips per day, Use as instructed. 300 Strip 11 Urine Glucose-Ketones Test (KETO-DIASTIX) strp 1 Strip as needed. 90 Strip 1 blood-glucose meter, wireless (CONTOUR NEXT LINK) kit 1 Device as directed. Dx: type 1 diabetes, insulin 1 Device 0 ketoconazole (NIZORAL) 2 % shampoo Apply 1 application to affected area once daily as needed. 120 mL 5 0.9 % SODIUM CHLORIDE (0.9% NACL) Access implanted vascular access device (IVAD) as needed for flush, blood draw or treatment. Flush IVAD with 10-20 mL NS every 4 weeks and PRN when IVAD not in use. 2 Syringe 50 heparin 100 unit/mL injection Access implanted vascular access device (IVAD) as needed for flush, blood draw or treatment. Before de-accessing port, flush with 10-20ml normal saline and follow with 5 mL heparin (100 units/mL) (if no heparin allergy). De-access port on treatment completion. 5 mL 25 Insulin Pump Syringe (MINIMED SYR RES 3CC/22GX1/2) 3 mL misc Change site every 3 days 30 Each 3 COMPOUNDED PRESCRIPTION Enlite Sensors change sensor every 6 days 2 Container 3 COMPOUNDED PRESCRIPTION Insulin pump supplies faxed to [facility] 90 Each 3 glucagon, human recombinant, (GLUCAGON EMERGENCY) 1 mg injection Inject 1 mg subcutaneously. INJECT FOR INSULIN SHOCK 1 Each 1 vitamin b complex(B COMPLEX 1 TAB) Take one(1) tablet daily. 0 ubidecarenone(CO Q-10 100 MG CAP) Take one(1) capsule daily. 0 Current Facility-Administered Medications Medication Dose Route Frequency Provider Last Rate Last Admin perflutren lipid microspheres 1.3 mL in NaCl (PF) 0.9% 10 mL injection (DEFINITY) INTRAVENOUS DIRECTED PRN 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, TEENA.FERNY sodium chloride 0.9 % (flush) 10 mL (BD POSIFLUSH) 10 mL INTRAVENOUS DIRECTED PRN 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, PROCED [email or web address].[email or web address] Facility-Administered Medications Ordered in Other Visits Medication Dose Route Frequency Provider Last Rate Last Admin NaCl 0.9% iv infusion 500-999 mL/hr INTRAVENOUS PRN Ramírez Patel Jr., MD diphenhydrAMINE 50 mg injection (BENADRYL) 50 mg INTRAVENOUS PRN Ramírez Patel Jr., MD hydrocortisone sodium succinate (PF) 100 mg injection (Solu-CORTEF) 100 mg INTRAVENOUS PRN Ramírez Patel Jr., MD EPINEPHrine 1 mg/mL (1 mL) 0.3 mg injection 0.3 mg INTRAMUSCULAR PRN Ramírez Patel Jr., MD Need for Follow up: will continue to follow Referred/Supervised by: Devan/Amanda MIXON Billing Type: Re-assess/15 min 1 unit Billed Time: 15 minutes Signed by: Ashely Hartman RD,URSULA documented in this encounter [facility] 08-24-2021 History of Present illness Narrative Patient is here for C3D1 of AMB DOXIL 40 D1 - Q28D Patient tolerated chemo well, no complications noted documented in this encounter [facility] 08-24-2021 History of Present illness Narrative DATE OF SERVICE: 08/24/2021 PROBLEM: Jerica Azul presents for follow up of chemotherapy (cycle 3 Doxil). DIAGNOSIS: Recurrent primary peritoneal cancer PRIOR HISTORY & TREATMENT: 1) 08/24/2006: Diagnostic laparoscopy with pelvic washing and peritoneal biopsy. 2) Neoadjuvant Taxol 175mg/m2 and Carbo AUC 6 x3 cycles (08/29/2006- 10/10/2006) 3) 11/30/2006: Exploratory laparotomy, total abdominal hysterectomy, bilateral salpingo-oophorectomy, omentectomy, colonoscopy, and IP port placement. 4) Carbo x4 cycles (12/2006-04/02/07) 5)02/21/2016: Exam under anesthesia, diagnostic laparoscopy, laparoscopic lysis of adhesions with reduction of abdominal wall incisional hernia, resection of anterior abdominal wall tumor nodule, left retroperitoneal exploration with left pelvic lymph node dissection. PATHOLOGY: FINAL DIAGNOSIS 1. Peritoneal lesion, biopsy (A) - Metastatic adenocarcinoma. (see comment) 2. Lymph nodes, left pelvis, regional resection (B) - Multiple (5) lymph nodes, negative for carcinoma. 6) Carbo AUC 5 locally in [place] for 6 cycles Q3 weeks (04/05/2016-05/17/2016) 7) 11/02/16: CA125 increasing, monitored and SELENA on CT scans done 04/26/17. Pt declined further scans 8) Maintenance avastin 15mg/kg x30 cycles (08/21/17 - 03/15/21) Switched to q6 weeks with cycle 6 Switch to q8 weeks with cycle 18 per patient preference cycle 31 deferred for diagnostic lap given rising CA125 9) Diagnostic laparoscopy - peritoneal carcinomatosis 10) 06/21/2020 - current: Doxil 40mg/m2 Q28 days x1 cycle. Patient had Doxil infusion reaction with cycle on and was rechallenged the following week (tolerated this infusion without issue). LABS: CA 125 Date Value 08/22/2021 578 U/mL 07/25/2021 371 U/mL 07/08/2021 206 U/mL 06/27/2021 135 U/mL 06/20/2021 143 U/mL 03/15/2021 105 U/mL 02/01/2021 80 U/mL 12/21/2020 75 U/mL 11/09/2020 92 U/mL 09/30/2020 61 U/mL 08/17/2020 55 U/mL 06/22/2020 51 U/mL 04/28/2020 41 U/mL 03/02/2020 27 U/mL 01/06/2020 23 U/mL 11/11/2019 21 U/mL 09/09/2019 19 U/mL 07/15/2019 20 U/mL 04/01/2019 21 U/mL 02/18/2019 21 U/mL 01/07/2019 18 U/mL 11/26/2018 18 U/mL 10/15/2018 19 U/mL 09/03/2018 18 U/mL 07/23/2018 17 U/mL 06/11/2018 19 U/mL 04/30/2018 20 U/mL 03/19/2018 28 U/mL 02/05/2018 27 U/mL 12/20/2017 26.1 11/09/2017 33.4 10/12/2017 34.3 09/14/2017 44.3 08/21/2017 144 U/mL 07/24/2017 242.9 Labs Latest Ref Rng & Units 07/08/2021 07/25/2021 08/05/2021 08/22/2021 WBC 3.70 - 11.00 k/uL 4.66 4.77 - 4.47 ABS NEUT (ANC) 1.45 - 7.50 k/uL 3.12 2.51 - 2.63 AAGRAN 1.45 - 7.50 k/uL - - - - HEMOGLOBIN 11.5 - 15.5 g/dL 13.2 12.8 - 13.0 HEMATOCRIT 36.0 - 46.0 % 40.1 38.7 - 39.2 PLATELETS 150 - 400 k/uL 191 236 - 228 ALBUMIN 3.9 - 4.9 g/dL 3.3(L) 3.5(L) - 3.5(L) ALKALINE PHOSPHATASE 34 - 123 U/L 76 89 - 86 ALT 7 - 38 U/L 21 28 - 31 AST 13 - 35 U/L 27 35 - 36(H) BILIRUBIN, TOTAL 0.2 - 1.3 mg/dL 1.4(H) 0.7 - 0.9 BUN 7 - 21 mg/dL 21 32(H) - 24(H) CALCIUM, TOTAL 8.5 - 10.2 mg/dL 8.4(L) 8.6 - 8.7 CREATININE 0.58 - 0.96 mg/dL 0.79 0.76 - 0.81 GLUCOSE 74 - 99 mg/dL 177(H) 177(H) - 191(H) MAGNESIUM 1.7 - 2.3 mg/dL 1.7 1.7 - 1.7 PHOSPHORUS 2.5 - 4.5 mg/dL - - - - POTASSIUM 3.7 - 5.1 mmol/L 4.2 4.2 - 4.4 PROTEIN, TOTAL 6.3 - 8.0 g/dL 5.8(L) 6.0(L) - 5.7(L) SODIUM 136 - 144 mmol/L 139 139 - 142 TSH 0.270 - 4.200 mIU/L - - 1.680 - FREE T4 0.9 - 1.7 ng/dL - - 1.8(H) - PROTEIN, URINE Neg mg/dL - - - - SUBJECTIVE/ROS: Jerica Azul reports that she feels well. No nausea or vomiting. No shortness of breath, cough, or chest pain. No nausea, vomiting, diarrhea, or constipation. She has been experiencing intermittent abdominal cramps that last for ~2 minutes at a time. These have been happening since her last chemotherapy infusion. Appetite is poor but she is still able to eat. Blood sugars have been high and she is working with her PCP who increased the basal on her insulin pump. She is scheduled to meet with our fine arts model today. No urinary complaints. She does have pain in her arms/shoulders. No neuropathy. No swelling in extremities. No rashes, skin lesions, blisters or mouth sores. Her ECOG performance status is zero (fully active, able to carry on all pre-disease performance without restriction). OBJECTIVE: VITALS: BP 157/80 Pulse 84 Ht 5' 4 (1.626 m) Wt 155 lb 9.6 oz (70.6 kg) BMI 26.71 kg/m GENERAL: alert, oriented, pleasant and cooperative. CV: RRR PULM: CTA ABD: Soft. 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 Currently on Doxil. Tolerating this well. CA 125 increasing. No new symptoms PLAN: 1. OVCA - on Doxil Treat today Repeat CT scans as schedule (next week) Schedule telephone visit to review and plan next steps Continued Doxil v Arimidex v Chemo holiday Then can schedule appropriate follow up The previous note from Ramírez Patel MD on 06/08/2021 was copied forward and the necessary changes were made above. Medical Decision Making: Problems: High: Illness/injury w/ threat to life/body function Data: Unique test result(s) reviewed: 3+ Unique test(s) ordered: 3+ Risk: Moderate: Moderate risk from testing/treatment High: Drug therapy requiring intensive monitoring Medical Decision Making Level: 5 - High A copy of this office note and a letter were sent to: DO Bhanu Sims MD - Grant Ross MD- home health billing specialist documented in this encounter [facility] 08-22-2021 Miscellaneous Notes Order placed Melchor Washington DO Pt called and states she will be coming in for a nurse visit to have blood drawn thru her port and wants to have an INR done at that time. Requesting this be in before 11 am today per pt. Please advise if there is a problem. Marycruz Pepe LPN documented in this encounter [facility] 08-09-2021 Miscellaneous Notes Pt called and is notified of providers results and instructions. Pt voices understanding. She reports her cancer is out of control with the new chemo they have her on and she thinks that may be throwing some of her labs off. She reports she sees the cancer doctor in August, and hopes to get something figured out with that. Denise Lorenzo RN Please inform patient that her labs show that her vitamin B12 levels are low normal. Would recommend vitamin B12 5000 mcg once a day with a meal. Also her free T4 is slightly high. Will recheck thyroid labs in September or october. Melchor Washington DO documented in this encounter [facility] 07-28-2021 History of Present illness Narrative OK to stay same and recheck in 1 week as planned Simone Tai MD patient had inr completed at [facility] patients inr is 1.6 (patients inr range is 2.0-3.0) patient is currently taking 2mg daily patients last dose change was on 07/21/21 due to a low level of 1.4 (dose at time was 1mg Tues,Thurs and 2mg all other days) patient has had no changes in medication except for coumadin and no missed doses and no change in diet FYI- patient is not interested in changing dose again this week since it did come up from last week. patient will have a blood draw on 08/05/21 (1 week) when she dose blood work for chemo treatment and if level is still low at that time then she will be ok with changing dose documented in this encounter [facility] 07-26-2021 History of Present illness Narrative DATE OF SERVICE: 07/26/2021 PROBLEM: Jerica Azul presents for follow up of chemotherapy (cycle 2 Doxil). DIAGNOSIS: Recurrent primary peritoneal cancer PRIOR HISTORY & TREATMENT: 1) 08/24/2006: Diagnostic laparoscopy with pelvic washing and peritoneal biopsy. 2) Neoadjuvant Taxol 175mg/m2 and Carbo AUC 6 x3 cycles (08/29/2006- 10/10/2006) 3) 11/30/2006: Exploratory laparotomy, total abdominal hysterectomy, bilateral salpingo-oophorectomy, omentectomy, colonoscopy, and IP port placement. 4) Carbo x4 cycles (12/2006-04/02/07) 5)02/21/2016: Exam under anesthesia, diagnostic laparoscopy, laparoscopic lysis of adhesions with reduction of abdominal wall incisional hernia, resection of anterior abdominal wall tumor nodule, left retroperitoneal exploration with left pelvic lymph node dissection. PATHOLOGY: FINAL DIAGNOSIS 1. Peritoneal lesion, biopsy (A) - Metastatic adenocarcinoma. (see comment) 2. Lymph nodes, left pelvis, regional resection (B) - Multiple (5) lymph nodes, negative for carcinoma. 6) Carbo AUC 5 locally in [place] for 6 cycles Q3 weeks (04/05/2016-05/17/2016) 7) 11/02/16: CA125 increasing, monitored and SELENA on CT scans done 04/26/17. Pt declined further scans 8) Maintenance avastin 15mg/kg x30 cycles (08/21/17 - 1/4/22) Switched to q6 weeks with cycle 6 Switch to q8 weeks with cycle 18 per patient preference cycle 31 deferred for diagnostic lap given rising CA125 9) Diagnostic laparoscopy - peritoneal carcinomatosis 10) 06/21/2020 - current: Doxil 40mg/m2 Q28 days x1 cycle. Patient had Doxil infusion reaction with cycle on and was rechallenged the following week (tolerated this infusion without issue). LABS: CA 125 Date Value 07/25/2021 371 U/mL 07/08/2021 206 U/mL 06/27/2021 135 U/mL 06/20/2021 143 U/mL 03/15/2021 105 U/mL 02/01/2021 80 U/mL 12/21/2020 75 U/mL 11/09/2020 92 U/mL 09/30/2020 61 U/mL 08/17/2020 55 U/mL 06/22/2020 51 U/mL 04/28/2020 41 U/mL 03/02/2020 27 U/mL 01/06/2020 23 U/mL 11/11/2019 21 U/mL 09/09/2019 19 U/mL 07/15/2019 20 U/mL 04/01/2019 21 U/mL 02/18/2019 21 U/mL 01/07/2019 18 U/mL 11/26/2018 18 U/mL 10/15/2018 19 U/mL 09/03/2018 18 U/mL 07/23/2018 17 U/mL 06/11/2018 19 U/mL 04/30/2018 20 U/mL 03/19/2018 28 U/mL 02/05/2018 27 U/mL 12/20/2017 26.1 11/09/2017 33.4 10/12/2017 34.3 09/14/2017 44.3 08/21/2017 144 U/mL 07/24/2017 242.9 Labs Latest Ref Rng & Units 06/20/2021 06/27/2021 07/08/2021 07/25/2021 WBC 3.70 - 11.00 k/uL 6.66 7.55 4.66 4.77 ABS NEUT (ANC) 1.45 - 7.50 k/uL 4.09 4.77 3.12 2.51 AAGRAN 1.45 - 7.50 k/uL - - - - HEMOGLOBIN 11.5 - 15.5 g/dL 14.7 14.4 13.2 12.8 HEMATOCRIT 36.0 - 46.0 % 44.5 43.6 40.1 38.7 PLATELETS 150 - 400 k/uL 233 207 191 236 ALBUMIN 3.9 - 4.9 g/dL 3.7(L) 3.5(L) 3.3(L) 3.5(L) ALKALINE PHOSPHATASE 34 - 123 U/L 94 84 76 89 ALT 7 - 38 U/L 22 20 21 28 AST 13 - 35 U/L 32 27 27 35 BILIRUBIN, TOTAL 0.2 - 1.3 mg/dL 0.8 1.1 1.4(H) 0.7 BUN 7 - 21 mg/dL 20 16 21 32(H) CALCIUM, TOTAL 8.5 - 10.2 mg/dL 8.8 8.5 8.4(L) 8.6 CREATININE 0.58 - 0.96 mg/dL 0.97(H) 0.84 0.79 0.76 GLUCOSE 74 - 99 mg/dL 96 231(H) 177(H) 177(H) MAGNESIUM 1.7 - 2.3 mg/dL 1.7 1.6(L) 1.7 1.7 PHOSPHORUS 2.5 - 4.5 mg/dL - - - - POTASSIUM 3.7 - 5.1 mmol/L 3.8 4.0 4.2 4.2 PROTEIN, TOTAL 6.3 - 8.0 g/dL 6.5 6.4 5.8(L) 6.0(L) SODIUM 136 - 144 mmol/L 140 137 139 139 TSH 0.270 - 4.200 uU/mL - - - - FREE T4 0.9 - 1.7 ng/dL - - - - PROTEIN, URINE Neg mg/dL - - - - SUBJECTIVE/ROS: Jerica Azul reports that she feels well. No nausea or vomiting. No shortness of breath, cough, or chest pain. No nausea, vomiting, diarrhea, or constipation. She has been experiencing intermittent abdominal cramps that last for ~2 minutes at a time. These have been happening since her last chemotherapy infusion. Appetite is poor but she is still able to eat. Blood sugars have been high and she is working with her PCP who increased the basal on her insulin pump. She is scheduled to meet with our fine arts model today. No urinary complaints. She does have pain in her arms/shoulders. No neuropathy. No swelling in extremities. No rashes, skin lesions, blisters or mouth sores. Her ECOG performance status is zero (fully active, able to carry on all pre-disease performance without restriction). OBJECTIVE: VITALS: BP 152/61 Ht 161.3 cm (5' 3.5) Wt 71.7 kg (158 lb 1.1 oz) BMI 27.56 kg/m GENERAL: alert, oriented, pleasant and cooperative. 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 Currently on Doxil. PLAN: 1. Reviewed chemo labs above including CA125. Her CA125 is increasing, which is expected with Doxil chemotherapy. Will proceed with cycle 2 of Doxil today as scheduled. Continue to follow CA125 with each cycle. I would typically recommend that she have CT scans after 3 cycles but the patient is declining imaging at this time. I will let Dr. Patel know and will have her discuss with Dr. Patel at her next appointment with him. Will also try to coordinate her treatment appointments with her physician appointments. Gricelda Villarreal APRN.FERNY The previous note from Ramírez Patel MD on 06/08/2021 was copied forward and the necessary changes were made above. Medical Decision Making: Problems: Moderate: 1+ chronic illnesses with change Data: Unique test result(s) reviewed: 3+ Unique test(s) ordered: 3+ Risk: High: Drug therapy requiring intensive monitoring Medical Decision Making Level: 4 - Moderate A copy of this office note and a letter were sent to: DO Bhanu Sims MD - Grant Ross MD- home health billing specialist documented in this encounter [facility] 07-26-2021 History of Present illness Narrative Patient is here for C2,D1 of AMB DOXIL 40 D1 - Q28D Patient tolerated chemo well, no complications noted documented in this encounter [facility] 07-21-2021 History of Present illness Narrative PATIENT NOTIFIED OF INFORMATION appt scheduled Patient notified of results and instructions. Patient refused to complete in a week, as coumadin nurse is not available and patient refusing to have completed at lab. Advise patient to take a total of 4 mg of coumadin today. Starting tomorrow take 2 mg daily. INR needs repeated in a week. Not two weeks please. 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 After provider review please contact the patient with information and schedule follow up appointment with coumadin clinic. ok to leave a detailed message if no answer FYI- patient has been scheduled for a 2 week follow up inr on 08/05/21 documented in this encounter [facility] 07-14-2021 History of Present illness Narrative INR appt scheduled for 07/21. Ember Grant Ma Spoke with pt and information listed below given. Pt verbalizes understanding. Apt booked. Marycruz Pepe LPN Detailed message left on pt identified VM. Asked pt to call back to set up a 1 week recheck. Tracker and med list updated. Venus Og Ma Change to 2 mg a day except for 1 mg on , . Recheck one week patient had inr completed at [facility] patients inr is 1.6 (patients inr range is 2.0-3.0) patient is currently taking 2mg alternating with 1mg patients last dose change was on 07/08/21 due to a high level of 4.4 (dose at that time was 3mg Wed and 2mg all other days) patient has had no changes in medication except for coumadin and no missed doses and no change in diet Advised patient that they would be contacted regarding medication dose and when to follow up after information is reviewed by provider. After provider review please contact the patient with information and schedule follow up appointment with coumadin clinic. ok to leave a detailed message concerning dosing if no answer FYI- patient has been scheduled for a 2 week follow up inr on 08/01/21 documented in this encounter [facility] 07-11-2021 Miscellaneous Notes Patient returned call and given provider's message below with verbalized understanding. Scheduled re-check on 07-14. Left message on pts machine to return call for information on coumadin. Please call patient and let her know that her INR was elevated. Please clarify that she is taking warfarin 3 mg on Sunday, and 2 mg every other day. If so, have her decrease this to 2 mg every day and recheck INR in 5 days. Roberta Elizabeth APRN.[employer] documented in this encounter [facility] 06-29-2021 Miscellaneous Notes Spoke with pt and information listed below given. Pt verbalizes understanding. Marycruz Pepe LPN Continue same dose, recheck INR 1 week Melchor Washington DO Last INR: INR 3.0 06/27/2021 Current dose of coumadin is: 2 mg daily except 3 mg on Sun. Last date of dose change: 06/14/21. Previous INR (date and result): 1.3 on 06/14/21 Additional Clinical Information or narrative: yes: Pt was to have INR rechecked in 1 week Ember Grant Ma documented in this encounter [facility] 06-29-2021 Miscellaneous Notes FMLA FORMS for daughter Tania completed and emailed to [email or web address] per patients request. documented in this encounter [facility] 06-28-2021 History of Present illness Narrative Patient is here for C1,D1 of AMB DOXIL 40 D1 - Q28D Patient did well on rechallenge of Doxil infusion. No reactions noted. Patient instructed to contact the office with any concerns;. documented in this encounter [facility] 06-27-2021 History of Present illness Narrative Patient is here for IVAD port flush/blood draw per Nursing Godfrey protocol. IVAD is located in left upper chest. Site cleansed with Chloraprep IVAD accessed with a #20 gauge 3/4 non-coring Gripper needle Flush with 5cc's Normal Saline. Blood Return: Good. 10 cc's blood aspirated and discarded. Blood drawn for CBC and BMP. Flushed with: 20 ml Normal Saline and 5 ml Heparin Lock Flush. Non-coring needle removed. Paper tape applied to puncture site. Site negative for redness, edema or tenderness. Patient tolerated procedure well. documented in this encounter [facility] 06-23-2021 History of Present illness Narrative late entry 06/22/21: Reviewed patient's doxil reaction and symptoms with Dr. Patel. He recommends rechallenging patient. Plan to give 50mg benadryl and increase dexamethasone from 10mg to 20mg. [place] orders updated. 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 APRN.[employer] documented in this encounter [facility] 06-22-2021 Miscellaneous Notes Returned call to patient regarding Doxil reaction. I asked patient how she is feeling today. Patient stated that she feels very tired today, stomach pain has improved. Patient stated that her blood sugar has been above 200 today. Patient worried about trying another treatment. Made patient aware that Dr. Patel recommends trying another treatment before changing treatments. Patient agreeable. Advised patient to call office with an further concerns. ----- Message from Ashely Monahan ADM sent at 06/22/2021 10:20 AM EDT ----- Regarding: mary Pizano had a reaction to the Doxil on Sunday , she is scheduled to receive it again next Sunday and is unsure if she should do this. Please advise. [phone] documented in this encounter [facility] 06-21-2021 History of Present illness Narrative Patient is here for C1,D1 of AMB DOXIL 40 D1 - Q28D Patient had reaction at 24cc. Patient became red, SOB, lower back spasms. Chemo stoppped, IVF started and rescue meds given. Patient returned to baseline within 5 minutes. Keyonna ISAACS at chairside, Halle Meza CNP notified Will plan to rechallange patient in 30 minutes. Approx. 30 minutes after patients reaction, the patient started experiencing intense abdominal cramping. Patient had large BM and then became very lightheaded, explained to her that this is normal. Patient back to chair, resting comfortably. Will plan to hold chemo today and rechallenge next week. Patient agreeable with plan. documented in this encounter [facility] 06-14-2021 History of Present illness Narrative Pt notified and voiced understanding. Will get checked next week when she is at [facility]. Bldg. Venus Og Ma Please have her increase her coumadin to 2 mg every day but Wed take 3 mg Recheck INR 1 week Melchor Washington DO patient had inr completed at [facility] patients inr is 1.3 (patients inr range is 2.0-3.0) patient is currently taking 1.5mg Sun and 2mg all other days patients last dose change was on 05/31/21 due to a low level of 1.3 (dose at that time was 1.5mg Sun, 1mg Tues,Wed,Fri and 2mg all other days) patient has had no changes in medication except for coumadin and no missed doses and no change in diet Advised patient that they would be contacted regarding medication dose and when to follow up after information is reviewed by provider. After provider review please contact the patient with information and schedule follow up appointment with coumadin clinic. ok to leave a detailed message if no answer FYI- patient has been scheduled for a 2 week follow up inr on 06/27/21 documented in this encounter [facility] 06-10-2021 Miscellaneous Notes Patient returned call. Made patient aware that her Echo is scheduled for 06/14, patient will need labs on 06/20 and treatment on 06/21 at 845 am. Labs and Echo are at [facility]. Patient agreeable all appointments. documented in this encounter [facility] 06-09-2021 Miscellaneous Notes Left voice mail message with patient to call office to discuss future appointments documented in this encounter [facility] 06-08-2021 History of Present illness Narrative DATE OF SERVICE: 06/08/2021 PROBLEM: Jerica Azul presents for postop visit and treatment discussion. Patient prefers to resume avastin SURGERY & DATE: 05/13/21: Exam under anesthesia and diagnostic laparoscopy. PATHOLOGY: n/a PRIOR HISTORY & TREATMENT: 1) 08/24/2006: Diagnostic laparoscopy with pelvic washing and peritoneal biopsy. 2) Neoadjuvant Taxol 175mg/m2 and Carbo AUC 6 x3 cycles (08/29/2006- 10/10/2006) 3) 11/30/2006: Exploratory laparotomy, total abdominal hysterectomy, bilateral salpingo-oophorectomy, omentectomy, colonoscopy, and IP port placement. 4) Carbo x4 cycles (12/2006-04/02/07) 5)02/21/2016: Exam under anesthesia, diagnostic laparoscopy, laparoscopic lysis of adhesions with reduction of abdominal wall incisional hernia, resection of anterior abdominal wall tumor nodule, left retroperitoneal exploration with left pelvic lymph node dissection. PATHOLOGY: FINAL DIAGNOSIS 1. Peritoneal lesion, biopsy (A) - Metastatic adenocarcinoma. (see comment) 2. Lymph nodes, left pelvis, regional resection (B) - Multiple (5) lymph nodes, negative for carcinoma. 6) Carbo AUC 5 locally in [place] for 6 cycles Q3 weeks (04/05/2016-05/17/2016) 7) 11/02/16: CA125 increasing, monitored and SELENA on CT scans done 04/26/17. Pt declined further scans 8) Maintenance avastin 15mg/kg x30 cycles (08/21/17- current) Switched to q6 weeks with cycle 6 Switch to q8 weeks with cycle 18 per patient preference cycle 31 deferred for diagnostic lap given rising CA125 9) Diagnostic laparoscopy - peritoneal carcinomatosis SUBJECTIVE/INTERVAL HISTORY: Jerica Azul reports that she feels well. No fever or chills. No shortness of breath, cough, or chest pain. No incisional redness, swelling, or drainage. Patient reports that her appetite is good. No abdominal pain, nausea, vomiting, diarrhea, or constipation. No dysuria, gross hematuria, urinary frequency, urinary urgency, or incontinence. Her ECOG performance status is zero (fully active, able to carry on all pre-disease performance without restriction). OBJECTIVE: VITALS: BP 159/78 Pulse 80 Temp 36.1 C (96.9 F) Resp 16 Ht 161.3 cm (5' 3.5) Wt 72.5 kg (159 lb 13.3 oz) SpO2 99% BMI 27.87 kg/m Earl James LPN GENERAL: Well appearing, A&Ox3. 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 Recovering well. We reviewed chemotherapy options and patient would like to elect Doxil. PLAN: 1. Postop Reviewed pathology report with patient Postop restrictions reviewed Discussed treatment recommendations: consider 3 weekly low dose of taxol vs doxil vs. avastin - risks, symptoms, and benefits discussed PT would like to elect Doxil for treatment Consent obtained from patient Some elements copied from 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 APRN.[employer]'s note on 05/17/21, have been updated where appropriate, and reflect my current medical decision making from today. Scribe Attestation: By signing my name below, I, Marivel Guerrero, attest that this documentation has been prepared under the direction and in the presence of Dr. Ramírez Patel MD. Electronically Signed:wander Sewell, June 08, 2021 9:19 AM Provider Attestation: I, Ramírez Patel Jr, MD, personally performed the services described in this documentation. All medical record entries made by the scribe were at my direction and in my presence. I have reviewed the chart and discharge instructions (if applicable) and agree that the record reflects my personal performance and is accurate and complete. Ramírez Patel Jr, MD June 08, 2021 12:56 PM Medical Decision Making: Problems: High: Illness/injury w/ threat to life/body function and Chronic illness with severe change Data: Unique test result(s) reviewed: 3+ Unique test(s) ordered: 3+ Independent interpretation of test from other physician/QHCP Risk: Moderate: Moderate risk from testing/treatment High: Drug therapy requiring intensive monitoring Medical Decision Making Level: 5 - High A copy of this office note and a letter were sent to: DO Bhanu Sims MD - Grant Ross MD- home health billing specialist documented in this encounter [facility] 05-31-2021 History of Present illness Narrative Pt. informed. Bernice Deng LPN Please have her increase dose to 2 mg on Mon, , Sun, , Sun and 1.5 mg on Sunday and Sun. Recheck INR as scheduled Melchor Washington DO patient had inr completed at [facility] patients inr is 1.3 (patients inr range is 2.0-3.0) patient is currently taking 1.5mg Sun 1mg ,Sun,Sun and 2mg all other days patients last dose change was on 02/24/21 due to a high level of 3.8 (dose at that time was 1mg Tues,Th,Sun and 2mg all other days) patient has had no changes in medication and no missed doses and no change in diet FYI- patient was off coumadin at the start of the month for a procedure but restarted back on it on 05/14/21 Advised patient that they would be contacted regarding medication dose and when to follow up after information is reviewed by provider. After provider review please contact the patient with information and schedule follow up appointment with coumadin clinic. 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 ovary 09/17/200610/11 documented as of this encounter (statuses as of 06/08/2021) [facility] History of Past illness Narrative* Problem Noted Date Resolved Date Malignant neoplasm of peritoneum, 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 neoplasm of ovary 09/17/200610/11 documented as of this encounter (statuses as of 06/08/2021) [facility] History of Past illness Narrative* Problem Noted Date Resolved Date Malignant neoplasm of peritoneum, 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 neoplasm of ovary 09/17/200610/11 documented as of this encounter (statuses as of 06/09/2021) [address]28-2007 History of Past illness Narrative* Problem Noted Date Resolved Date Malignant neoplasm of peritoneum, 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 neoplasm of ovary 09/17/200610/11 documented as of this encounter (statuses as of 06/10/2021) [address]28-2007 History of Past illness Narrative* Problem Noted Date Resolved Date Malignant neoplasm of peritoneum, 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 neoplasm of ovary 09/17/200610/11 documented as of this encounter (statuses as of 06/14/2021) [place] [address]-28-2007 History of Past illness Narrative* Problem Noted Date Resolved Date Malignant neoplasm of peritoneum, 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 neoplasm of ovary 09/17/200610/11 documented as of this encounter (statuses as of 06/20/2021) [place] [address]28-2007 History of Past illness Narrative* Problem Noted Date Resolved Date Malignant neoplasm of peritoneum, 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 neoplasm of ovary 09/17/200610/11 documented as of this encounter (statuses as of 06/21/2021) [place] [address]28-2007 History of Past illness Narrative* Problem Noted Date Resolved Date Malignant neoplasm of peritoneum, 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 neoplasm of ovary 09/17/200610/11 documented as of this encounter (statuses as of 06/22/2021) [place] [address]28-2007 History of Past illness Narrative* Problem Noted Date Resolved Date Malignant neoplasm of peritoneum, 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 neoplasm of ovary 09/17/200610/11 documented as of this encounter (statuses as of 06/23/2021) [place] [address]28-2007 History of Past illness Narrative* Problem Noted Date Resolved Date Malignant neoplasm of peritoneum, 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 neoplasm of ovary 09/17/200610/11 documented as of this encounter (statuses as of 06/23/2021) [address]28-2007 History of Past illness Narrative* Problem Noted Date Resolved Date Malignant neoplasm of peritoneum, 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 neoplasm of ovary 09/17/200610/11 documented as of this encounter (statuses as of 06/27/2021) [address]28-2007 History of Past illness Narrative* Problem Noted Date Resolved Date Malignant neoplasm of peritoneum, 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 neoplasm of ovary 09/17/200610/11 documented as of this encounter (statuses as of 06/28/2021) [address]28[address]2007 History of Past illness Narrative* Problem Noted Date Resolved Date Malignant neoplasm of peritoneum, 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 neoplasm of ovary 09/17/200610/11 documented as of this encounter (statuses as of 06/29/2021) [address]28[address]2007 History of Past illness Narrative* Problem Noted Date Resolved Date Malignant neoplasm of peritoneum, 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 neoplasm of ovary 09/17/200610/11 documented as of this encounter (statuses as of 06/29/2021) [address]28[address]2007 History of Past illness Narrative* Problem Noted Date Resolved Date Malignant neoplasm of peritoneum, 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 neoplasm of ovary 09/17/200610/11 documented as of this encounter (statuses as of 07/08/2021) [address]28[address]2007 History of Past illness Narrative* Problem Noted Date Resolved Date Malignant neoplasm of peritoneum, 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 neoplasm of ovary 09/17/200610/11 documented as of this encounter (statuses as of 07/11/2021) [address]28[address]2007 History of Past illness Narrative* Problem Noted Date Resolved Date Malignant neoplasm of peritoneum, 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 neoplasm of ovary 09/17/200610/11 documented as of this encounter (statuses as of 07/11/2021) [address]28[address]2007 History of Past illness Narrative* Problem Noted Date Resolved Date Malignant neoplasm of peritoneum, 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 neoplasm of ovary 09/17/200610/11 documented as of this encounter (statuses as of 07/14/2021) [address]28[address]2007 History of Past illness Narrative* Problem Noted Date Resolved Date Malignant neoplasm of peritoneum, 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 neoplasm of ovary 09/17/200610/11 documented as of this encounter (statuses as of 07/21/2021) [address]28[address]2007 History of Past illness Narrative* Problem Noted Date Resolved Date Malignant neoplasm of peritoneum, 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 neoplasm of ovary 09/17/200610/11 documented as of this encounter (statuses as of 07/25/2021) [address]28-2007 History of Past illness Narrative* Problem Noted Date Resolved Date Malignant neoplasm of peritoneum, 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 neoplasm of ovary 09/17/200610/11 documented as of this encounter (statuses as of 07/26/2021) [address]28[address]2007 History of Past illness Narrative* Problem Noted Date Resolved Date Malignant neoplasm of peritoneum, 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 neoplasm of ovary 09/17/200610/11 documented as of this encounter (statuses as of 07/26/2021) [address]28-2007 History of Past illness Narrative* Problem Noted Date Resolved Date Malignant neoplasm of peritoneum, 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 neoplasm of ovary 09/17/200610/11 documented as of this encounter (statuses as of 07/28/2021) [address]28[address]2007 History of Past illness Narrative* Problem Noted Date Resolved Date Malignant neoplasm of peritoneum, 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 neoplasm of ovary 09/17/200610/11 documented as of this encounter (statuses as of 08/05/2021) [address]28-2007 History of Past illness Narrative* Problem Noted Date Resolved Date Malignant neoplasm of peritoneum, 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 neoplasm of ovary 09/17/200610/11 documented as of this encounter (statuses as of 08/09/2021) [facility]28-2007 History of Past illness Narrative* Problem Noted Date Resolved Date Malignant neoplasm of peritoneum, 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 neoplasm of ovary 09/17/200610/11 documented as of this encounter (statuses as of 08/22/2021) [facility] History of Past illness Narrative* Problem Noted Date Resolved Date Malignant neoplasm of peritoneum, 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 neoplasm of ovary 09/17/200610/11 documented as of this encounter (statuses as of 08/22/2021) [place] [address]28-2007 History of Past illness Narrative* Problem Noted Date Resolved Date Malignant neoplasm of peritoneum, 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 neoplasm of ovary 09/17/200610/11 documented as of this encounter (statuses as of 08/24/2021) [facility] History of Past illness Narrative* Problem Noted Date Resolved Date Malignant neoplasm of peritoneum, 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 neoplasm of ovary 09/17/200610/11 documented as of this encounter (statuses as of 08/24/2021) [facility] History of Past illness Narrative* Problem Noted Date Resolved Date Malignant neoplasm of peritoneum, 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 neoplasm of ovary 09/17/200610/11 documented as of this encounter (statuses as of 08/25/2021) [facility] History of Past illness Narrative* Problem Noted Date Resolved Date Malignant neoplasm of peritoneum, 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 neoplasm of ovary 09/17/200610/11 documented as of this encounter (statuses as of 08/29/2021) [facility] History of Past illness Narrative* Problem Noted Date Resolved Date Malignant neoplasm of peritoneum, 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 neoplasm of ovary 09/17/200610/11 documented as of this encounter (statuses as of 09/02/2021) [address]28-2007 History of Past illness Narrative* Problem Noted Date Resolved Date Malignant neoplasm of peritoneum, 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 neoplasm of ovary 09/17/200610/11 documented as of this encounter (statuses as of 09/10/2021) [address]28-2007 History of Past illness Narrative* Problem Noted Date Resolved Date Malignant neoplasm of peritoneum, 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 neoplasm of ovary 09/17/200610/11 documented as of this encounter (statuses as of 09/19/2021) [address]28[address]2007 History of Past illness Narrative* Problem Noted Date Resolved Date Malignant neoplasm of peritoneum, 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 neoplasm of ovary 09/17/200610/11 documented as of this encounter (statuses as of 09/20/2021) [address]28[address]2007 History of Past illness Narrative* Problem Noted Date Resolved Date Malignant neoplasm of peritoneum, 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 neoplasm of ovary 09/17/200610/11 documented as of this encounter (statuses as of 09/20/2021) [address]28[address]2007 History of Past illness Narrative* Problem Noted Date Resolved Date Malignant neoplasm of peritoneum, 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 neoplasm of ovary 09/17/200610/11 documented as of this encounter (statuses as of 09/21/2021) [address]28-2007 History of Past illness Narrative* Problem Noted Date Resolved Date Malignant neoplasm of peritoneum, 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 neoplasm of ovary 09/17/200610/11 documented as of this encounter (statuses as of 09/22/2021) [address]28[address]2007 History of Past illness Narrative* Problem Noted Date Resolved Date Malignant neoplasm of peritoneum, 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 neoplasm of ovary 09/17/200610/11 documented as of this encounter (statuses as of 10/17/2021) [address]28[address]2007 History of Past illness Narrative* Problem Noted Date Resolved Date Malignant neoplasm of peritoneum, 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 neoplasm of ovary 09/17/200610/11 documented as of this encounter (statuses as of 10/19/2021) [facility]2007 History of Past illness Narrative* Problem Noted Date Resolved Date Malignant neoplasm of peritoneum, 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 neoplasm of ovary 09/17/200610/11 documented as of this encounter (statuses as of 10/25/2021) [address]28[address]2007 History of Past illness Narrative* Problem Noted Date Resolved Date Malignant neoplasm of peritoneum, 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 neoplasm of ovary 09/17/200610/11 documented as of this encounter (statuses as of 10/31/2021) [address]28[address]2007 History of Past illness Narrative* Problem Noted Date Resolved Date Malignant neoplasm of peritoneum, 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 neoplasm of ovary 09/17/200610/11 documented as of this encounter (statuses as of 10/31/2021) [facility] History of Past illness Narrative* Problem Noted Date Resolved Date Malignant neoplasm of peritoneum, 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 neoplasm of ovary 09/17/200610/11 documented as of this encounter (statuses as of 11/23/2021) [address]28-2007 History of Past illness Narrative* Problem Noted Date Resolved Date Malignant neoplasm of peritoneum, 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 neoplasm of ovary 09/17/200610/11 documented as of this encounter (statuses as of 11/24/2021) [address]28[address]2007 History of Past illness Narrative* Problem Noted Date Resolved Date Malignant neoplasm of peritoneum, 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 neoplasm of ovary 09/17/200610/11 documented as of this encounter (statuses as of 12/15/2021) [address]28[address]2007 History of Past illness Narrative* Problem Noted Date Resolved Date Malignant neoplasm of peritoneum, 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 neoplasm of ovary 09/17/200610/11 documented as of this encounter (statuses as of 12/21/2021) [address]28[address]2007 History of Past illness Narrative* Problem Noted Date Resolved Date Malignant neoplasm of peritoneum, 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 neoplasm of ovary 09/17/200610/11 documented as of this encounter (statuses as of 12/21/2021) [address]28[address]2007 History of Past illness Narrative* Problem Noted Date Resolved Date Malignant neoplasm of peritoneum, 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 neoplasm of ovary 09/17/200610/11 documented as of this encounter (statuses as of 12/23/2021) [address]28[address]2007 History of Past illness Narrative* Problem Noted Date Resolved Date Malignant neoplasm of peritoneum, 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 neoplasm of ovary 09/17/200610/11 documented as of this encounter (statuses as of 12/27/2021) [place] [address]28-2007 History of Past illness Narrative* Problem Noted Date Resolved Date Malignant neoplasm of peritoneum, 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 neoplasm of ovary 09/17/200610/11 documented as of this encounter (statuses as of 12/27/2021) [place] [address]28-2007 History of Past illness Narrative* Problem Noted Date Resolved Date Malignant neoplasm of peritoneum, 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 neoplasm of ovary 09/17/200610/11 documented as of this encounter (statuses as of 12/27/2021) [address]28[address]2007 History of Past illness Narrative* Problem Noted Date Resolved Date Malignant neoplasm of peritoneum, 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 neoplasm of ovary 09/17/200610/11 documented as of this encounter (statuses as of 12/29/2021) [address]28[address]2007 History of Past illness Narrative* Problem Noted Date Resolved Date Malignant neoplasm of peritoneum, 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 neoplasm of ovary 09/17/200610/11 documented as of this encounter (statuses as of 01/02/2022) [address]28[address]2007 History of Past illness Narrative* Problem Noted Date Resolved Date Malignant neoplasm of peritoneum, 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 neoplasm of ovary 09/17/200610/11 documented as of this encounter (statuses as of 01/05/2022) [address]28-2007 History of Past illness Narrative* Problem Noted Date Resolved Date Malignant neoplasm of peritoneum, 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 neoplasm of ovary 09/17/200610/11 documented as of this encounter (statuses as of 01/05/2022) [address]28-2007 History of Past illness Narrative* Problem Noted Date Resolved Date Malignant neoplasm of peritoneum, 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 neoplasm of ovary 09/17/200610/11 documented as of this encounter (statuses as of 01/05/2022) [address]28-2007 History of Past illness Narrative* Problem Noted Date Resolved Date Malignant neoplasm of peritoneum, 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 neoplasm of ovary 09/17/200610/11 documented as of this encounter (statuses as of 01/11/2022) [address]28[address]2007 History of Past illness Narrative* Problem Noted Date Resolved Date Malignant neoplasm of peritoneum, 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 neoplasm of ovary 09/17/200610/11 documented as of this encounter (statuses as of 01/12/2022) [address]28[address]2007 History of Past illness Narrative* Problem Noted Date Resolved Date Malignant neoplasm of peritoneum, 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 neoplasm of ovary 09/17/200610/11 documented as of this encounter (statuses as of 01/18/2022) [address]28[address]2007 History of Past illness Narrative* Problem Noted Date Resolved Date Malignant neoplasm of peritoneum, 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 neoplasm of ovary 09/17/200610/11 documented as of this encounter (statuses as of 01/19/2022) [place] [address]28-2007 History of Past illness Narrative* Problem Noted Date Resolved Date Malignant neoplasm of peritoneum, 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 neoplasm of ovary 09/17/200610/11 documented as of this encounter (statuses as of 01/19/2022) [facility]28-2007 History of Past illness Narrative* Problem Noted Date Resolved Date Malignant neoplasm of peritoneum, 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 neoplasm of ovary 09/17/200610/11 documented as of this encounter (statuses as of 01/25/2022) [place] [address]28-2007 History of Past illness Narrative* Problem Noted Date Resolved Date Malignant neoplasm of peritoneum, 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 neoplasm of ovary 09/17/200610/11 documented as of this encounter (statuses as of 01/31/2022) [address]28[address]2007 History of Past illness Narrative* Problem Noted Date Resolved Date Malignant neoplasm of peritoneum, 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 neoplasm of ovary 09/17/200610/11 documented as of this encounter (statuses as of 02/01/2022) [facility]28-2007 History of Past illness Narrative* Problem Noted Date Resolved Date Malignant neoplasm of peritoneum, 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 neoplasm of ovary 09/17/200610/11 documented as of this encounter (statuses as of 02/08/2022) [place] [address]28-2007 History of Past illness Narrative* Problem Noted Date Resolved Date Malignant neoplasm of peritoneum, 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 neoplasm of ovary 09/17/200610/11 documented as of this encounter (statuses as of 02/14/2022) [place] [id number] History of Past illness Narrative* Problem Noted Date Resolved Date Malignant neoplasm of peritoneum, 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 neoplasm of ovary 09/17/200610/11 documented as of this encounter (statuses as of 02/23/2022) [address]28-2007 History of Past illness Narrative* Problem Noted Date Resolved Date Malignant neoplasm of peritoneum, 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 neoplasm of ovary 09/17/200610/11 documented as of this encounter (statuses as of 02/23/2022) [address]28-2007 History of Past illness Narrative* Problem Noted Date Resolved Date Malignant neoplasm of peritoneum, 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 neoplasm of ovary 09/17/200610/11 documented as of this encounter (statuses as of 03/03/2022) [address]28-2007 History of Past illness Narrative* Problem Noted Date Resolved Date Malignant neoplasm of peritoneum, 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 neoplasm of ovary 09/17/200610/11 documented as of this encounter (statuses as of 03/15/2022) [address]28-2007 History of Past illness Narrative* Problem Noted Date Resolved Date Malignant neoplasm of peritoneum, 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 neoplasm of ovary 09/17/200610/11 documented as of this encounter (statuses as of 03/17/2022) [address]28-2007 History of Past illness Narrative* Problem Noted Date Resolved Date Malignant neoplasm of peritoneum, 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 neoplasm of ovary 09/17/200610/11 documented as of this encounter (statuses as of 03/20/2022) [place] [id number] History of Past illness Narrative* Problem Noted Date Resolved Date Malignant neoplasm of peritoneum, 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 neoplasm of ovary 09/17/200610/11 documented as of this encounter (statuses as of 03/22/2022) [address]28-2007 History of Past illness Narrative* Problem Noted Date Resolved Date Malignant neoplasm of peritoneum, 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 neoplasm of ovary 09/17/200610/11 documented as of this encounter (statuses as of 04/17/2022) [address]28-2007 History of Past illness Narrative* Problem Noted Date Resolved Date Malignant neoplasm of peritoneum, 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 neoplasm of ovary 09/17/200610/11 documented as of this encounter (statuses as of 04/17/2022) [address] History of Past illness Narrative* Problem Noted Date Resolved Date Malignant neoplasm of peritoneum, 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 neoplasm of ovary 09/17/200610/11 documented as of this encounter (statuses as of 04/18/2022) [address]28-2007 History of Past illness Narrative* Problem Noted Date Resolved Date Malignant neoplasm of peritoneum, 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 neoplasm of ovary 09/17/200610/11 documented as of this encounter (statuses as of 04/19/2022) [address]28-2007 History of Past illness Narrative* Problem Noted Date Resolved Date Malignant neoplasm of peritoneum, 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 neoplasm of ovary 09/17/200610/11 documented as of this encounter (statuses as of 04/25/2022) [address] History of Past illness Narrative* Problem Noted Date Resolved Date Malignant neoplasm of peritoneum, 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 neoplasm of ovary 09/17/200610/11 documented as of this encounter (statuses as of 05/03/2022) [address]28-2007 History of Past illness Narrative* Problem Noted Date Resolved Date Malignant neoplasm of peritoneum, 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 neoplasm of ovary 09/17/200610/11 documented as of this encounter (statuses as of 05/09/2022) [address]28-2007 History of Past illness Narrative* Problem Noted Date Resolved Date Malignant neoplasm of peritoneum, 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 neoplasm of ovary 09/17/200610/11 documented as of this encounter (statuses as of 05/14/2022) [address]28-2007 History of Past illness Narrative* Problem Noted Date Resolved Date Malignant neoplasm of peritoneum, 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 neoplasm of ovary 09/17/200610/11 documented as of this encounter (statuses as of 05/17/2022) [place] [id number] History of Past illness Narrative* Problem Noted Date Resolved Date Malignant neoplasm of peritoneum, 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 neoplasm of ovary 09/17/200610/11 documented as of this encounter (statuses as of 05/18/2022) [place] [id number] History of Past illness Narrative* Problem Noted Date Resolved Date Malignant neoplasm of peritoneum, 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 neoplasm of ovary 09/17/200610/11 documented as of this encounter (statuses as of 06/12/2022) [place] [id number] History of Past illness Narrative* Problem Noted Date Resolved Date Malignant neoplasm of peritoneum, 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 neoplasm of ovary 09/17/200610/11 documented as of this encounter (statuses as of 06/14/2022) [address]28-2007 History of Past illness Narrative* Problem Noted Date Resolved Date Malignant neoplasm of peritoneum, 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 neoplasm of ovary 09/17/200610/11 documented as of this encounter (statuses as of 06/15/2022) [place] [id number] History of Past illness Narrative* Problem Noted Date Resolved Date Malignant neoplasm of peritoneum, 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 neoplasm of ovary 09/17/200610/11 documented as of this encounter (statuses as of 07/06/2022) [place] [id number] History of Past illness Narrative* Problem Noted Date Resolved Date Malignant neoplasm of peritoneum, 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 neoplasm of ovary 09/17/200610/11 documented as of this encounter (statuses as of 07/07/2022) [address]28-2007 History of Past illness Narrative* Problem Noted Date Resolved Date Malignant neoplasm of peritoneum, 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 neoplasm of ovary 09/17/200610/11 documented as of this encounter (statuses as of 07/10/2022) [place] [id number] History of Past illness Narrative* Problem Noted Date Resolved Date Malignant neoplasm of peritoneum, 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 neoplasm of ovary 09/17/200610/11 documented as of this encounter (statuses as of 07/12/2022) [address]28-2007 History of Past illness Narrative* Problem Noted Date Resolved Date Malignant neoplasm of peritoneum, 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 neoplasm of ovary 09/17/200610/11 documented as of this encounter (statuses as of 07/17/2022) [address]28-2007 History of Past illness Narrative* Problem Noted Date Resolved Date Malignant neoplasm of peritoneum, 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 neoplasm of ovary 09/17/200610/11 documented as of this encounter (statuses as of 08/09/2022) [address]28-2007 History of Past illness Narrative* Problem Noted Date Resolved Date Malignant neoplasm of peritoneum, 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 neoplasm of ovary 09/17/200610/11 documented as of this encounter (statuses as of 08/10/2022) [address]28-2007 History of Past illness Narrative* Problem Noted Date Resolved Date Malignant neoplasm of peritoneum, 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 neoplasm of ovary 09/17/200610/11 documented as of this encounter (statuses as of 08/10/2022) [address]28-2007 History of Past illness Narrative* Problem Noted Date Resolved Date Malignant neoplasm of peritoneum, 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 neoplasm of ovary 09/17/200610/11 documented as of this encounter (statuses as of 08/15/2022) [address]28-2007 History of Past illness Narrative* Problem Noted Date Resolved Date Malignant neoplasm of peritoneum, 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 neoplasm of ovary 09/17/200610/11 documented as of this encounter (statuses as of 08/17/2022) [address]28-2007 History of Past illness Narrative* Problem Noted Date Resolved Date Malignant neoplasm of peritoneum, 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 neoplasm of ovary 09/17/200610/11 documented as of this encounter (statuses as of 09/04/2022) [address]28-2007 History of Past illness Narrative* Problem Noted Date Resolved Date Malignant neoplasm of peritoneum, 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 neoplasm of ovary 09/17/200610/11 documented as of this encounter (statuses as of 09/11/2022) [address]28-2007 History of Past illness Narrative* Problem Noted Date Diagnosed Date Resolved Date Malignant neoplasm of peritoneum, unspecified 11/07/19 07 12/13/2009 Malignant neoplasm of ovary 09/17/2006 11/06/2006 documented as of this encounter (statuses as of 09/20/2022) [address]28-2007 History of Past illness Narrative* Problem Noted Date Diagnosed Date Resolved Date Malignant neoplasm of peritoneum, unspecified 11/07/19 07 12/13/2009 Malignant neoplasm of ovary 09/17/2006 11/06/2006 documented as of this encounter (statuses as of 09/27/2022) [address]28-2007 History of Past illness Narrative* Problem Noted Date Diagnosed Date Resolved Date Malignant neoplasm of peritoneum, unspecified 11/07/19 07 12/13/2009 Malignant neoplasm of ovary 09/17/2006 11/06/2006 documented as of this encounter (statuses as of 10/10/2022) [address]28-2007 History of Past illness Narrative* Problem Noted Date Diagnosed Date Resolved Date Malignant neoplasm of peritoneum, unspecified 11/07/19 07 12/13/2009 Malignant neoplasm of ovary 09/17/2006 11/06/2006 documented as of this encounter (statuses as of 10/18/2022) [address]28-2007 History of Past illness Narrative* Problem Noted Date Diagnosed Date Resolved Date Malignant neoplasm of peritoneum, unspecified 11/07/19 07 12/13/2009 Malignant neoplasm of ovary 09/17/2006 11/06/2006 documented as of this encounter (statuses as of 10/25/2022) [address]28-2007 History of Past illness Narrative* Problem Noted Date Diagnosed Date Resolved Date Malignant neoplasm of peritoneum, unspecified 11/07/19 07 12/13/2009 Malignant neoplasm of ovary 09/17/2006 11/06/2006 documented as of this encounter (statuses as of 11/01/2022) [address]28-2007 History of Past illness Narrative* Problem Noted Date Diagnosed Date Resolved Date Malignant neoplasm of peritoneum, unspecified 11/07/19 07 12/13/2009 Malignant neoplasm of ovary 09/17/2006 11/06/2006 documented as of this encounter (statuses as of 11/07/2022) [facility]08-28-2007 History of Past illness Narrative* Problem Noted Date Diagnosed Date Resolved Date Malignant neoplasm of peritoneum, unspecified 11/07/19 07 12/13/2009 Malignant neoplasm of ovary 09/17/2006 11/06/2006 documented as of this encounter (statuses as of 11/07/2022) [address]28-2007 History of Past illness Narrative* Problem Noted Date Diagnosed Date Resolved Date Malignant neoplasm of peritoneum, unspecified 11/07/19 07 12/13/2009 Malignant neoplasm of ovary 09/17/2006 11/06/2006 documented as of this encounter (statuses as of 11/08/2022) [address]28-2007 History of Past illness Narrative* Problem Noted Date Diagnosed Date Resolved Date Malignant neoplasm of peritoneum, unspecified 11/07/19 07 12/13/2009 Malignant neoplasm of ovary 09/17/2006 11/06/2006 documented as of this encounter (statuses as of 11/17/2022) [address]28-2007 History of Past illness Narrative* Problem Noted Date Diagnosed Date Resolved Date Malignant neoplasm of peritoneum, unspecified 11/07/19 07 12/13/2009 Malignant neoplasm of ovary 09/17/2006 11/06/2006 documented as of this encounter (statuses as of 11/29/2022) [address]28-2007 History of Past illness Narrative* Problem Noted Date Diagnosed Date Resolved Date Malignant neoplasm of peritoneum, unspecified 11/07/19 07 12/13/2009 Malignant neoplasm of ovary 09/17/2006 11/06/2006 documented as of this encounter (statuses as of 12/05/2022) [address]28-2007 History of Past illness Narrative* Problem Noted Date Diagnosed Date Resolved Date Malignant neoplasm of peritoneum, unspecified 11/07/19 07 12/13/2009 Malignant neoplasm of ovary 09/17/2006 11/06/2006 documented as of this encounter (statuses as of 12/20/2022) [place] [address]-2007 History of Past illness Narrative* Problem Noted Date Diagnosed Date Resolved Date Malignant neoplasm of peritoneum, unspecified 11/07/19 07 12/13/2009 Malignant neoplasm of ovary 09/17/2006 11/06/2006 documented as of this encounter (statuses as of 12/26/2022) [place] [address]-2007 History of Past illness Narrative* Problem Noted Date Diagnosed Date Resolved Date Malignant neoplasm of peritoneum, unspecified 11/07/19 07 12/13/2009 Malignant neoplasm of ovary 09/17/2006 11/06/2006 documented as of this encounter (statuses as of 12/27/2022) [address]28-2007 History of Past illness Narrative* Problem Noted Date Diagnosed Date Resolved Date Malignant neoplasm of peritoneum, unspecified 11/07/19 07 12/13/2009 Malignant neoplasm of ovary 09/17/2006 11/06/2006 documented as of this encounter (statuses as of 01/02/2023) [address]28-2007 History of Past illness Narrative* Problem Noted Date Diagnosed Date Resolved Date Malignant neoplasm of peritoneum, unspecified 11/07/19 07 12/13/2009 Malignant neoplasm of ovary 09/17/2006 11/06/2006 documented as of this encounter (statuses as of 01/02/2023) [facility]08-28-2007 History of Past illness Narrative* Problem Noted Date Diagnosed Date Resolved Date Malignant neoplasm of peritoneum, unspecified 11/07/19 07 12/13/2009 Malignant neoplasm of ovary 09/17/2006 11/06/2006 documented as of this encounter (statuses as of 01/10/2023) [address]28-2007 History of Past illness Narrative* Problem Noted Date Diagnosed Date Resolved Date Malignant neoplasm of peritoneum, unspecified 11/07/19 07 12/13/2009 Malignant neoplasm of ovary 09/17/2006 11/06/2006 documented as of this encounter (statuses as of 01/24/2023) [place] [address]28-2007 History of Past illness Narrative* Problem Noted Date Diagnosed Date Resolved Date Malignant neoplasm of peritoneum, unspecified 11/07/19 07 12/13/2009 Malignant neoplasm of ovary 09/17/2006 11/06/2006 documented as of this encounter (statuses as of 01/30/2023) [address]28-2007 History of Past illness Narrative* Problem Noted Date Diagnosed Date Resolved Date Malignant neoplasm of peritoneum, unspecified 11/07/19 07 12/13/2009 Malignant neoplasm of ovary 09/17/2006 11/06/2006 documented as of this encounter (statuses as of 01/31/2023) [address]28-2007 History of Past illness Narrative* Problem Noted Date Diagnosed Date Resolved Date Malignant neoplasm of peritoneum, unspecified 11/07/19 07 12/13/2009 Malignant neoplasm of ovary 09/17/2006 11/06/2006 documented as of this encounter (statuses as of 04/18/2023) [address]28-2007 History of Past illness Narrative* Problem Noted Date Diagnosed Date Resolved Date Malignant neoplasm of peritoneum, unspecified 11/07/19 07 12/13/2009 Malignant neoplasm of ovary 09/17/2006 11/06/2006 documented as of this encounter (statuses as of 04/18/2023) [facility]08-28-2007 History of Past illness Narrative* Problem Noted Date Diagnosed Date Resolved Date Malignant neoplasm of peritoneum, unspecified 11/07/19 07 12/13/2009 Malignant neoplasm of ovary 09/17/2006 11/06/2006 documented as of this encounter (statuses as of 04/19/2023) [facility]08-28-2007 History of Past illness Narrative* Problem Noted Date Diagnosed Date Resolved Date Malignant neoplasm of peritoneum, unspecified 11/07/19 07 12/13/2009 Malignant neoplasm of ovary 09/17/2006 11/06/2006 documented as of this encounter (statuses as of 04/24/2023) [place] [address]28-2007 History of Past illness Narrative* Problem Noted Date Diagnosed Date Resolved Date Malignant neoplasm of peritoneum, unspecified 11/07/19 07 12/13/2009 Malignant neoplasm of ovary 09/17/2006 11/06/2006 documented as of this encounter (statuses as of 04/24/2023) [facility]08-28-2007 History of Past illness Narrative* Problem Noted Date Diagnosed Date Resolved Date Malignant neoplasm of peritoneum, unspecified 11/07/19 07 12/13/2009 Malignant neoplasm of ovary 09/17/2006 11/06/2006 documented as of this encounter (statuses as of 05/01/2023) [facility]08-28-2007 History of Past illness Narrative* Problem Noted Date Diagnosed Date Resolved Date Malignant neoplasm of peritoneum, unspecified 11/07/19 07 12/13/2009 Malignant neoplasm of ovary 09/17/2006 11/06/2006 documented as of this encounter (statuses as of 05/09/2023) [address]28-2007 History of Past illness Narrative* Problem Noted Date Diagnosed Date Resolved Date Malignant neoplasm of peritoneum, unspecified 11/07/19 07 12/13/2009 Malignant neoplasm of ovary 09/17/2006 11/06/2006 documented as of this encounter (statuses as of 05/16/2023) [address]28-2007 History of Past illness Narrative* Problem Noted Date Diagnosed Date Resolved Date Malignant neoplasm of peritoneum, unspecified 11/07/19 07 12/13/2009 Malignant neoplasm of ovary 09/17/2006 11/06/2006 documented as of this encounter (statuses as of 05/17/2023) [address]28-2007 History of Past illness Narrative* Problem Noted Date Diagnosed Date Resolved Date Malignant neoplasm of peritoneum, unspecified 11/07/19 07 12/13/2009 Malignant neoplasm of ovary 09/17/2006 11/06/2006 documented as of this encounter (statuses as of 05/23/2023) [address]28-2007 History of Past illness Narrative* Problem Noted Date Diagnosed Date Resolved Date Malignant neoplasm of peritoneum, unspecified 11/07/19 07 12/13/2009 Malignant neoplasm of ovary 09/17/2006 11/06/2006 documented as of this encounter (statuses as of 06/01/2023) [address]28-2007 History of Past illness Narrative* Problem Noted Date Diagnosed Date Resolved Date Malignant neoplasm of peritoneum, unspecified 11/07/19 07 12/13/2009 Malignant neoplasm of ovary 09/17/2006 11/06/2006 documented as of this encounter (statuses as of 06/13/2023) [address]28-2007 History of Past illness Narrative* Problem Noted Date Diagnosed Date Resolved Date Malignant neoplasm of peritoneum, unspecified 11/07/19 07 12/13/2009 Malignant neoplasm of ovary 09/17/2006 11/06/2006 documented as of this encounter (statuses as of 06/15/2023) [address]28-2007 History of Past illness Narrative* Problem Noted Date Diagnosed Date Resolved Date Malignant neoplasm of peritoneum, unspecified 11/07/19 07 12/13/2009 Malignant neoplasm of ovary 09/17/2006 11/06/2006 documented as of this encounter (statuses as of 06/18/2023) [place] [address]28-2007 History of Past illness Narrative* Problem Noted Date Diagnosed Date Resolved Date Malignant neoplasm of peritoneum, unspecified 11/07/19 07 12/13/2009 Malignant neoplasm of ovary 09/17/2006 11/06/2006 documented as of this encounter (statuses as of 06/19/2023) [place] [address]28-2007 History of Past illness Narrative* Problem Noted Date Diagnosed Date Resolved Date Malignant neoplasm of peritoneum, unspecified 11/07/19 07 12/13/2009 Malignant neoplasm of ovary 09/17/2006 11/06/2006 documented as of this encounter (statuses as of 06/21/2023) [place] [address]28-2007 History of Past illness Narrative* Problem Noted Date Diagnosed Date Resolved Date Malignant neoplasm of peritoneum, unspecified 11/07/19 07 12/13/2009 Malignant neoplasm of ovary 09/17/2006 11/06/2006 documented as of this encounter (statuses as of 06/28/2023) [facility] Chronic anticoagulation Long-term (current) use of anticoagulants Phlebitis Phlebitis and thrombophlebitis of unspecified site [facility] Diagnosis Ovarian cancer, bilateral (HCC)- Primary [facility]* Diagnosis Encounter for chemotherapy management- Primary Ovarian cancer, bilateral (HCC) [facility]* Diagnosis Chronic anticoagulation Long-term (current) use of anticoagulants Phlebitis Phlebitis and thrombophlebitis of unspecified site [facility]* Diagnosis Malignant neoplasm of both ovaries (HCC) Malignant neoplasm of ovary Encounter for chemotherapy management Ovarian cancer, bilateral (HCC) [facility]* Diagnosis Encounter for chemotherapy management- Primary Ovarian cancer, bilateral (HCC) Ovarian cancer, unspecified laterality (HCC) 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, unspecified [facility] Diagnosis Ovarian cancer, bilateral (HCC)- Primary [facility] Diagnosis Malignant neoplasm of both ovaries (HCC)- Primary Malignant neoplasm of ovary Other 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, unspecified chronicity (HCC) Encounter for chemotherapy management Ovarian cancer, bilateral (HCC) [facility] Ovarian cancer, bilateral (HCC)- Primary Ovarian cancer, unspecified laterality (HCC) 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, unspecified [facility] Chronic anticoagulation Long-term (current) use of anticoagulants Phlebitis Phlebitis and thrombophlebitis of unspecified site [facility]* Diagnosis Malignant neoplasm of both ovaries (HCC)- Primary Malignant neoplasm of ovary Encounter for chemotherapy management Chronic anticoagulation Long-term (current) use of anticoagulants [facility] Diagnosis Chronic anticoagulation- Primary Long-term (current) use of anticoagulants [facility] Chronic anticoagulation Long-term (current) use of anticoagulants Phlebitis Phlebitis and thrombophlebitis of unspecified site [facility] Diagnosis Chronic anticoagulation Long-term (current) use of anticoagulants Phlebitis Phlebitis and thrombophlebitis of unspecified site [facility]* Diagnosis Malignant neoplasm of both ovaries (HCC) Malignant neoplasm of ovary Encounter for chemotherapy management [facility] 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, unspecified Chemotherapy follow-up examination Elevated CA-125 Elevated cancer antigen 125 [CA 125] [facility]* Diagnosis Encounter for chemotherapy management- Primary Ovarian cancer, bilateral (HCC) Ovarian cancer, unspecified laterality (HCC) 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, unspecified [facility]* Diagnosis Chronic anticoagulation Long-term (current) use of anticoagulants Phlebitis Phlebitis and thrombophlebitis of unspecified site [facility] Malignant neoplasm of both ovaries (HCC)- Primary Malignant neoplasm of ovary Chronic anticoagulation Long-term (current) use of anticoagulants Hypothyroidism, acquired Unspecified hypothyroidism Vitamin D deficiency Unspecified vitamin D deficiency Fatigue, unspecified type [facility] Diagnosis Chronic anticoagulation- Primary Long-term (current) use of anticoagulants Ovarian cancer, bilateral (HCC)- Primary documented in this encounter [place] [facility]* Diagnosis Malignant neoplasm of both ovaries (HCC)- Primary Malignant neoplasm of ovary Other 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, unspecified chronicity (HCC) Encounter for chemotherapy management Ovarian cancer, bilateral (HCC)- [facility] Ovarian cancer, bilateral (HCC)- Primary Elevated CA-125 Elevated cancer antigen 125 [CA 125] [facility] Diagnosis Encounter for antineoplastic chemotherapy- Primary Ovarian cancer, bilateral (HCC) Ovarian cancer, unspecified laterality (HCC) 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, unspecified [facility] Diagnosis Ovarian cancer, bilateral (HCC)- Primary [facility]* Diagnosis Chronic anticoagulation Long-term (current) use of anticoagulants [facility]* Diagnosis Lung nodules Other nonspecific abnormal finding of lung field Malignant neoplasm of both ovaries (HCC) Malignant neoplasm of ovary Chronic anticoagulation Long-term (current) use of anticoagulants [facility] Diagnosis Chronic anticoagulation Long-term (current) use of anticoagulants Phlebitis Phlebitis and thrombophlebitis of unspecified site [facility]* Diagnosis 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, 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, 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) [facility] Diagnosis Pure hypercholesterolemia [facility]* Diagnosis Ovarian cancer, bilateral (HCC)- Primary [facility] Diagnosis Chronic anticoagulation Long-term (current) use of anticoagulants Phlebitis Phlebitis and thrombophlebitis of unspecified site [facility]* Diagnosis Situational insomnia- Primary Transient disorder of initiating or maintaining sleep Vitamin B12 deficiency Other B-complex deficiencies Vitamin D deficiency Unspecified vitamin D deficiency 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, 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, on [facility] insulin pump (HCC) Pure hypercholesterolemia Hypothyroidism, acquired Unspecified hypothyroidism Essential hypertension, benign Malignant neoplasm of both ovaries (HCC) Malignant neoplasm of ovary [facility] Diagnosis Essential hypertension, benign Malignant neoplasm of both ovaries (HCC) Malignant neoplasm of ovary Hypothyroidism, acquired Unspecified hypothyroidism Vitamin D deficiency Unspecified vitamin D deficiency 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, 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, on [facility] insulin pump (HCC) Vitamin B12 deficiency Other B-complex deficiencies [facility] Diagnosis Chronic anticoagulation Long-term (current) use of anticoagulants Phlebitis Phlebitis and thrombophlebitis of unspecified site [facility]* Diagnosis Essential hypertension, benign- Primary Malignant neoplasm of both ovaries (HCC) Malignant neoplasm of ovary Encounter for chemotherapy management Chronic anticoagulation Long-term (current) use of anticoagulants [facility] Diagnosis Chronic anticoagulation Long-term (current) use of anticoagulants Phlebitis Phlebitis and thrombophlebitis of unspecified site [facility]* Diagnosis Hypothyroidism, acquired- Primary Unspecified hypothyroidism Need for COVID-19 vaccine Vitamin B12 deficiency Other B-complex deficiencies Vitamin D deficiency Unspecified vitamin D deficiency Chronic anticoagulation Long-term (current) use of anticoagulants 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, 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, 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) Fatigue, unspecified type Malignant neoplasm of both ovaries (HCC) Malignant neoplasm of ovary [facility] Diagnosis Malignant neoplasm of both ovaries (HCC) Malignant neoplasm of ovary Encounter for chemotherapy management Chronic anticoagulation Long-term (current) use of anticoagulants Vitamin B12 deficiency Other B-complex deficiencies Vitamin D deficiency Unspecified vitamin D deficiency [facility] Diagnosis Chronic anticoagulation Long-term (current) use of anticoagulants Phlebitis Phlebitis and thrombophlebitis of unspecified site [facility]* Diagnosis Malignant neoplasm of both ovaries (HCC)- Primary Malignant neoplasm of ovary [facility]* Diagnosis Vitamin B12 deficiency- Primary Other B-complex deficiencies [facility]* Diagnosis Vitamin B12 deficiency- Primary Other B-complex deficiencies [facility]* Diagnosis 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, 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, on [facility] insulin pump (HCC) Hypothyroidism, acquired Unspecified hypothyroidism Malignant neoplasm of both ovaries (HCC) Malignant neoplasm of ovary [facility]* Diagnosis Chronic anticoagulation Long-term (current) use of anticoagulants Phlebitis Phlebitis and thrombophlebitis of unspecified site [facility]* Diagnosis Vitamin B12 deficiency- Primary Other B-complex deficiencies [facility] Chronic anticoagulation Long-term (current) use of anticoagulants Phlebitis Phlebitis and thrombophlebitis of unspecified site [facility]* Diagnosis Vitamin B12 deficiency- Primary Other B-complex deficiencies [facility]* Diagnosis Malignant neoplasm of both ovaries (HCC)- Primary Malignant neoplasm of ovary Encounter for chemotherapy management Chronic anticoagulation Long-term (current) use of anticoagulants [facility]* Diagnosis Vitamin B12 deficiency- Primary Other B-complex deficiencies [facility] Diagnosis Vitamin B12 deficiency- Primary Other B-complex deficiencies [facility]* Diagnosis Vitamin B12 deficiency- Primary Other B-complex deficiencies [facility] Diagnosis Chronic anticoagulation Long-term (current) use of anticoagulants Phlebitis Phlebitis and thrombophlebitis of unspecified site [facility] encounter [facility]* Diagnosis Onset Date Resolution Status Hypothyroidism (acquired) ch ronic Insulin pump titration chron ic Presence of insulin pump chr onic Type 1 diabetes mellitus, wi th long-term current use of insulin [facility] Work Phone: Evaluation note* Diagnosis Other 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, unspecified chronicity (HCC)- Primary [facility]* Diagnosis Hypothyroidism, acquired- Primary Unspecified hypothyroidism Vitamin B12 deficiency Other B-complex deficiencies Dysuria Screening for colon cancer Special screening for malignant neoplasms, colon Vitamin D deficiency Unspecified vitamin D deficiency 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, 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, 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) Malignant neoplasm of both ovaries (HCC) Malignant neoplasm of ovary Fatigue, unspecified type Pure hypercholesterolemia Essential hypertension, benign [facility]* Diagnosis Malignant neoplasm of both ovaries (HCC)- Primary Malignant neoplasm of ovary Dysuria Vitamin B12 deficiency Other B-complex deficiencies 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, 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, on [facility] insulin pump (HCC) Hypothyroidism, acquired Unspecified hypothyroidism Vitamin D deficiency Unspecified vitamin D deficiency [facility]* Diagnosis Vitamin B12 deficiency- Primary Other B-complex deficiencies [facility]* Diagnosis Chronic anticoagulation Long-term (current) use of anticoagulants Phlebitis Phlebitis and thrombophlebitis of unspecified site [facility]* Diagnosis Malignant neoplasm of both ovaries (HCC) Malignant neoplasm of ovary Encounter for chemotherapy management [facility]* Diagnosis Chronic anticoagulation Long-term (current) use of anticoagulants Phlebitis Phlebitis and thrombophlebitis of unspecified site [facility]* Diagnosis Dysuria- Primary Chronic anticoagulation Long-term (current) use of anticoagulants [facility]* Diagnosis Malignant neoplasm of both ovaries (HCC)- Primary Malignant neoplasm of ovary Other 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, unspecified chronicity (HCC) Encounter for chemotherapy management [facility]* Diagnosis Vitamin B12 deficiency- Primary Other B-complex deficiencies [facility]* Diagnosis Chronic anticoagulation Long-term (current) use of anticoagulants [facility]* Diagnosis Malignant neoplasm of both ovaries (HCC)- Primary Malignant neoplasm of ovary [facility]* Diagnosis Dizziness- Primary Dizziness and giddiness Chronic anticoagulation Long-term (current) use of anticoagulants Malignant neoplasm of both ovaries (HCC) Malignant neoplasm of ovary Vitamin B12 deficiency Other B-complex deficiencies Hypothyroidism, acquired Unspecified hypothyroidism Fatigue, unspecified type Essential hypertension, benign Other 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, unspecified chronicity (HCC) 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, unspecified [facility]* Diagnosis 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) Type I (juvenile type) diabetes mellitus with other specified manifestations, not stated as uncontrolled [facility]* Diagnosis Vitamin B12 deficiency- Primary Other B-complex deficiencies [facility]* Diagnosis Malignant neoplasm of both ovaries (HCC)- Primary Malignant neoplasm of ovary Hypothyroidism, acquired Unspecified hypothyroidism Vitamin B12 deficiency Other B-complex deficiencies [facility]* Diagnosis Chronic anticoagulation Long-term (current) use of anticoagulants Malignant neoplasm of both ovaries (HCC) Malignant neoplasm of ovary 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) Type I (juvenile type) diabetes mellitus with other specified manifestations, not stated as uncontrolled [facility] Diagnosis care home (current) use of anticoagulants- Primary Long-term (current) use of anticoagulants [facility] Diagnosis Vitamin B12 deficiency- Primary Other B-complex deficiencies Need for vaccination Need for prophylactic vaccination and inoculation against unspecified single disease [facility]* Diagnosis Chronic anticoagulation- Primary Long-term (current) use of anticoagulants Phlebitis Phlebitis and thrombophlebitis of unspecified site [facility]* Diagnosis Chronic anticoagulation- Primary Long-term (current) use of anticoagulants Phlebitis Phlebitis and thrombophlebitis of unspecified site [facility]* Diagnosis Vitamin B12 deficiency- Primary Other B-complex deficiencies [facility]* Diagnosis Chronic anticoagulation- Primary Long-term (current) use of anticoagulants Phlebitis Phlebitis and thrombophlebitis of unspecified site [facility]* Diagnosis Chronic anticoagulation- Primary Long-term (current) use of anticoagulants Phlebitis Phlebitis and thrombophlebitis of unspecified site [facility]* Diagnosis Malignant neoplasm of both ovaries (HCC) Malignant neoplasm of ovary [facility]* Diagnosis Vitamin B12 deficiency- Primary Other B-complex deficiencies [facility]* Diagnosis Chronic anticoagulation- Primary Long-term (current) use of anticoagulants Phlebitis Phlebitis and thrombophlebitis of unspecified site [facility]* Diagnosis Malignant neoplasm of both ovaries (HCC)- Primary Malignant neoplasm of ovary Other 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, unspecified chronicity (HCC) documented [facility]* Diagnosis Vitamin B12 deficiency- Primary Other B-complex deficiencies Need for influenza vaccination Need for prophylactic vaccination and inoculation against influenza [facility]* Diagnosis Malignant neoplasm of both ovaries (HCC)- Primary Malignant neoplasm of ovary [facility]* Diagnosis Vitamin B12 deficiency- Primary Other B-complex deficiencies Encounter for immunization Need for other specified prophylactic vaccination against single bacterial disease [facility] Chronic anticoagulation- Primary Long-term (current) use of anticoagulants Phlebitis Phlebitis and thrombophlebitis of unspecified site [facility]* Diagnosis Hypothyroidism, acquired- Primary Unspecified hypothyroidism Skin sore Unspecified disorder of skin and subcutaneous tissue Urinary incontinence, unspecified type Vitamin B12 deficiency Other B-complex deficiencies Pure hypercholesterolemia 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, 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, 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) Essential hypertension, benign Vitamin D deficiency Unspecified vitamin D deficiency 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) Stage 3a chronic kidney disease (HCC) [facility] Diagnosis Other 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, unspecified chronicity (HCC) Malignant neoplasm of both ovaries (HCC) 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 Long-term (current) use of anticoagulants Essential hypertension, benign Hypothyroidism, acquired Unspecified hypothyroidism Vitamin B12 deficiency Other B-complex deficiencies 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, 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, 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) Vitamin D deficiency Unspecified vitamin D deficiency [facility]* Diagnosis Vitamin B12 deficiency- Primary Other B-complex deficiencies [facility]* Diagnosis Urinary incontinence, unspecified type- Primary 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, unspecified Other 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, unspecified chronicity (HCC) 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) Stage 3a chronic kidney disease (HCC) Chronic anticoagulation Long-term (current) use of anticoagulants Vitamin B12 deficiency Other B-complex deficiencies Hypothyroidism, acquired Unspecified hypothyroidism Essential hypertension, benign [facility]* Diagnosis Malignant neoplasm of both ovaries (HCC) Malignant neoplasm of ovary Other 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, unspecified chronicity (HCC) documented [facility]* Diagnosis Chronic anticoagulation- Primary Long-term (current) use of anticoagulants Phlebitis Phlebitis and thrombophlebitis of unspecified site [facility]* Diagnosis Vitamin B12 deficiency- Primary Other B-complex deficiencies [facility] Chronic anticoagulation- Primary Long-term (current) use of anticoagulants Phlebitis Phlebitis and thrombophlebitis of unspecified site [facility]* Diagnosis Malignant neoplasm of both ovaries (HCC) Malignant neoplasm of ovary Other 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, unspecified chronicity (HCC) [facility]* Diagnosis Vitamin B12 deficiency- Primary Other B-complex deficiencies [facility]* Diagnosis Other 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, unspecified chronicity (HCC) [facility]* Diagnosis Malignant neoplasm of both ovaries (HCC)- Primary Malignant neoplasm of ovary [facility]* Diagnosis Malignant neoplasm of bilateral ovaries (HCC)- Primary [facility]* Diagnosis Malignant neoplasm of both ovaries (HCC)- Primary Malignant neoplasm of ovary Other 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, unspecified chronicity (HCC) Malignant neoplasm of bilateral ovaries (HCC) [facility]* Diagnosis Vitamin B12 deficiency- Primary Other B-complex deficiencies [facility]* Diagnosis Hypothyroidism, acquired- Primary Unspecified hypothyroidism Malignant neoplasm of bilateral ovaries (HCC) Chronic midline low 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 DDD (degenerative disc disease), lumbar Degeneration of lumbar or lumbosacral intervertebral disc Vitamin B12 deficiency Other B-complex deficiencies Chronic anticoagulation Long-term (current) use of anticoagulants 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) Dyslipidemia Other and unspecified hyperlipidemia [facility]* Diagnosis Malignant neoplasm of both ovaries (HCC)- 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 Long-term (current) use of anticoagulants Other 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, unspecified chronicity (HCC) Malignant neoplasm of bilateral ovaries (HCC) [facility]* Diagnosis Chronic anticoagulation- Primary Long-term (current) use of anticoagulants Phlebitis Phlebitis and thrombophlebitis of unspecified site [facility]* Diagnosis Vitamin B12 deficiency- Primary Other B-complex deficiencies [facility]* Diagnosis Malignant neoplasm of both ovaries (HCC)- Primary Malignant neoplasm of ovary Other 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, unspecified chronicity (HCC) Malignant neoplasm of bilateral ovaries (HCC) [facility] Vitamin B12 deficiency- Primary Other B-complex deficiencies [facility]* Diagnosis Chronic anticoagulation- Primary Long-term (current) use of anticoagulants Phlebitis Phlebitis and thrombophlebitis of unspecified site [facility]* Diagnosis Malignant neoplasm of both ovaries (HCC)- Primary Malignant neoplasm of ovary Malignant neoplasm of bilateral ovaries (HCC) [facility]* Diagnosis Malignant neoplasm of bilateral ovaries (HCC) [facility] Diagnosis Chronic anticoagulation- Primary Long-term (current) use of anticoagulants Phlebitis Phlebitis and thrombophlebitis of unspecified site [facility]* Diagnosis Right hip pain- Primary Pain in joint, pelvic region and thigh Injury of right hip, subsequent encounter Urinary incontinence, unspecified type Pure hypercholesterolemia [facility]* Diagnosis 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, uncontrolled HYPOTHYROIDISM NOS Unspecified hypothyroidism Pre-operative examination- Primary Preoperative examination, unspecified Ovarian cancer, bilateral (HCC) 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, unspecified Essential hypertension, benign Mixed hyperlipidemia Other 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, unspecified chronicity (HCC) Pure hypercholesterolemia 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) Hypothyroidism, acquired Unspecified hypothyroidism Primary insomnia Persistent disorder of initiating or maintaining sleep Chronic anticoagulation- Primary Long-term (current) use of anticoagulants Phlebitis Phlebitis and thrombophlebitis of unspecified site [facility]* Diagnosis 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, uncontrolled HYPOTHYROIDISM NOS Unspecified hypothyroidism Pre-operative examination- Primary Preoperative examination, unspecified Ovarian cancer, bilateral (HCC) 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, unspecified Essential hypertension, benign Mixed hyperlipidemia Other 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, unspecified chronicity (HCC) Pure hypercholesterolemia 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) Hypothyroidism, acquired Unspecified hypothyroidism Primary insomnia Persistent disorder of initiating or maintaining sleep Chronic anticoagulation- Primary Long-term (current) use of anticoagulants Phlebitis Phlebitis and thrombophlebitis of unspecified site [facility] Diagnosis 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, uncontrolled HYPOTHYROIDISM NOS Unspecified hypothyroidism Pre-operative examination- Primary Preoperative examination, unspecified Ovarian cancer, bilateral (HCC) 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, unspecified Essential hypertension, benign Mixed hyperlipidemia Other 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, unspecified chronicity (HCC) Pure hypercholesterolemia 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) Hypothyroidism, acquired Unspecified hypothyroidism Primary insomnia Persistent disorder of initiating or maintaining sleep Vitamin B12 deficiency- Primary Other B-complex deficiencies [facility] Diagnosis 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, uncontrolled HYPOTHYROIDISM NOS Unspecified hypothyroidism Pre-operative examination- Primary Preoperative examination, unspecified Ovarian cancer, bilateral (HCC) 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, unspecified Essential hypertension, benign Mixed hyperlipidemia Other 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, unspecified chronicity (HCC) Pure hypercholesterolemia 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) Hypothyroidism, acquired Unspecified hypothyroidism Primary insomnia Persistent disorder of initiating or maintaining sleep Malignant neoplasm of bilateral ovaries (HCC) [facility] Diagnosis 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, uncontrolled HYPOTHYROIDISM NOS Unspecified hypothyroidism Pre-operative examination- Primary Preoperative examination, unspecified Ovarian cancer, bilateral (HCC) 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, unspecified Essential hypertension, benign Mixed hyperlipidemia Other 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, unspecified chronicity (HCC) Pure hypercholesterolemia 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) Hypothyroidism, acquired Unspecified hypothyroidism Primary insomnia Persistent disorder of initiating or maintaining sleep Chronic anticoagulation- Primary Long-term (current) use of anticoagulants Phlebitis Phlebitis and thrombophlebitis of unspecified site [facility] Diagnosis 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, uncontrolled HYPOTHYROIDISM NOS Unspecified hypothyroidism Pre-operative examination- Primary Preoperative examination, unspecified Ovarian cancer, bilateral (HCC) 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, unspecified Essential hypertension, benign Mixed hyperlipidemia Other 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, unspecified chronicity (HCC) Pure hypercholesterolemia 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) Hypothyroidism, acquired Unspecified hypothyroidism Primary insomnia Persistent disorder of initiating or maintaining sleep Vitamin B12 deficiency- Primary Other B-complex deficiencies Need for influenza vaccination Need for prophylactic vaccination and inoculation against influenza [facility] Diagnosis 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, uncontrolled HYPOTHYROIDISM NOS Unspecified hypothyroidism Pre-operative examination- Primary Preoperative examination, unspecified Ovarian cancer, bilateral (HCC) 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, unspecified Essential hypertension, benign Mixed hyperlipidemia Other 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, unspecified chronicity (HCC) Pure hypercholesterolemia 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) Hypothyroidism, acquired Unspecified hypothyroidism Primary insomnia Persistent disorder of initiating or maintaining sleep Other 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, unspecified chronicity (HCC) Malignant neoplasm of bilateral ovaries (HCC) documented in this encounter [facility] note* Diagnosis 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, uncontrolled HYPOTHYROIDISM NOS Unspecified hypothyroidism Pre-operative examination- Primary Preoperative examination, unspecified Ovarian cancer, bilateral (HCC) 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, unspecified Essential hypertension, benign Mixed hyperlipidemia Other 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, unspecified chronicity (HCC) Pure hypercholesterolemia 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) Hypothyroidism, acquired Unspecified hypothyroidism Primary insomnia Persistent disorder of initiating or maintaining sleep Pure hypercholesterolemia Right hip pain Pain in joint, pelvic region and thigh Injury of right hip, subsequent encounter documented in this encounter [facility] note* Diagnosis 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, uncontrolled HYPOTHYROIDISM NOS Unspecified hypothyroidism Pre-operative examination- Primary Preoperative examination, unspecified Ovarian cancer, bilateral (HCC) 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, unspecified Essential hypertension, benign Mixed hyperlipidemia Other 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, unspecified chronicity (HCC) Pure hypercholesterolemia 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) Hypothyroidism, acquired Unspecified hypothyroidism Primary insomnia Persistent disorder of initiating or maintaining sleep 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, 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, 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) (HCC) documented [facility]* Diagnosis 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, uncontrolled HYPOTHYROIDISM NOS Unspecified hypothyroidism Pre-operative examination- Primary Preoperative examination, unspecified Ovarian cancer, bilateral (HCC) 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, unspecified Essential hypertension, benign Mixed hyperlipidemia Other 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, unspecified chronicity (HCC) Pure hypercholesterolemia 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) Hypothyroidism, acquired Unspecified hypothyroidism Primary insomnia Persistent disorder of initiating or maintaining sleep Vitamin B12 deficiency- Primary Other B-complex deficiencies Encounter for immunization Need for other specified prophylactic vaccination against single bacterial disease [facility]* Diagnosis 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, uncontrolled HYPOTHYROIDISM NOS Unspecified hypothyroidism Pre-operative examination- Primary Preoperative examination, unspecified Ovarian cancer, bilateral (HCC) 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, unspecified Essential hypertension, benign Mixed hyperlipidemia Other 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, unspecified chronicity (HCC) Pure hypercholesterolemia 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) Hypothyroidism, acquired Unspecified hypothyroidism Primary insomnia Persistent disorder of initiating or maintaining sleep Hematuria, unspecified type- Primary Other 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, unspecified chronicity (HCC) Malignant neoplasm of bilateral ovaries (HCC) documented in this encounter [facility] note* Diagnosis 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, uncontrolled HYPOTHYROIDISM NOS Unspecified hypothyroidism Pre-operative examination- Primary Preoperative examination, unspecified Ovarian cancer, bilateral (HCC) 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, unspecified Essential hypertension, benign Mixed hyperlipidemia Other 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, unspecified chronicity (HCC) Pure hypercholesterolemia 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) Hypothyroidism, acquired Unspecified hypothyroidism Primary insomnia Persistent disorder of initiating or maintaining sleep Right hip pain- Primary Pain in joint, pelvic region and thigh Injury of right hip, subsequent encounter Microscopic hematuria 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, 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, on [facility] insulin pump (HCC) (HCC) Pure hypercholesterolemia Chronic anticoagulation Long-term (current) use of anticoagulants Vitamin B12 deficiency Other B-complex deficiencies History of ovarian cancer Personal history of malignant neoplasm of ovary Essential hypertension, benign [facility]* Diagnosis 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, uncontrolled HYPOTHYROIDISM NOS Unspecified hypothyroidism Pre-operative examination- Primary Preoperative examination, unspecified Ovarian cancer, bilateral (HCC) 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, unspecified Essential hypertension, benign Mixed hyperlipidemia Other 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, unspecified chronicity (HCC) Pure hypercholesterolemia 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) Hypothyroidism, acquired Unspecified hypothyroidism Primary insomnia Persistent disorder of initiating or maintaining sleep Vitamin B12 deficiency- Primary Other B-complex deficiencies [facility]* Diagnosis 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, uncontrolled HYPOTHYROIDISM NOS Unspecified hypothyroidism Pre-operative examination- Primary Preoperative examination, unspecified Ovarian cancer, bilateral (HCC) 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, unspecified Essential hypertension, benign Mixed hyperlipidemia Other 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, unspecified chronicity (HCC) Pure hypercholesterolemia 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) Hypothyroidism, acquired Unspecified hypothyroidism Primary insomnia Persistent disorder of initiating or maintaining sleep Chronic anticoagulation- Primary Long-term (current) use of anticoagulants Phlebitis Phlebitis and thrombophlebitis of unspecified site [facility]* Diagnosis 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, uncontrolled HYPOTHYROIDISM NOS Unspecified hypothyroidism Pre-operative examination- Primary Preoperative examination, unspecified Ovarian cancer, bilateral (HCC) 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, unspecified Essential hypertension, benign Mixed hyperlipidemia Other 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, unspecified chronicity (HCC) Pure hypercholesterolemia 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) Hypothyroidism, acquired Unspecified hypothyroidism Primary insomnia Persistent disorder of initiating or maintaining sleep Ovarian cancer, bilateral (HCC)- Primary Other 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, unspecified chronicity (HCC) Malignant neoplasm of bilateral ovaries (HCC) Microscopic hematuria [facility] Diagnosis 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, uncontrolled HYPOTHYROIDISM NOS Unspecified hypothyroidism Pre-operative examination- Primary Preoperative examination, unspecified Ovarian cancer, bilateral (HCC) 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, unspecified Essential hypertension, benign Mixed hyperlipidemia Other 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, unspecified chronicity (HCC) Pure hypercholesterolemia 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) Hypothyroidism, acquired Unspecified hypothyroidism Primary insomnia Persistent disorder of initiating or maintaining sleep Bruising- Primary Contusion of unspecified site [facility]* Diagnosis 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, uncontrolled HYPOTHYROIDISM NOS Unspecified hypothyroidism Pre-operative examination- Primary Preoperative examination, unspecified Ovarian cancer, bilateral (HCC) 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, unspecified Essential hypertension, benign Mixed hyperlipidemia Other 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, unspecified chronicity (HCC) Pure hypercholesterolemia 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) Hypothyroidism, acquired Unspecified hypothyroidism Primary insomnia Persistent disorder of initiating or maintaining sleep Microscopic hematuria- Primary [facility]* Diagnosis 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, uncontrolled HYPOTHYROIDISM NOS Unspecified hypothyroidism Pre-operative examination- Primary Preoperative examination, unspecified Ovarian cancer, bilateral (HCC) 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, unspecified Essential hypertension, benign Mixed hyperlipidemia Other 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, unspecified chronicity (HCC) Pure hypercholesterolemia 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) Hypothyroidism, acquired Unspecified hypothyroidism Primary insomnia Persistent disorder of initiating or maintaining sleep Vitamin B12 deficiency- Primary Other B-complex deficiencies [facility]* Diagnosis 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, uncontrolled HYPOTHYROIDISM NOS Unspecified hypothyroidism Pre-operative examination- Primary Preoperative examination, unspecified Ovarian cancer, bilateral (HCC) 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, unspecified Essential hypertension, benign Mixed hyperlipidemia Other 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, unspecified chronicity (HCC) Pure hypercholesterolemia 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) Hypothyroidism, acquired Unspecified hypothyroidism Primary insomnia Persistent disorder of initiating or maintaining sleep Other 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, unspecified chronicity (HCC) Malignant neoplasm of bilateral ovaries (HCC) Bruising Contusion of unspecified site [facility]* Diagnosis 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, uncontrolled HYPOTHYROIDISM NOS Unspecified hypothyroidism Pre-operative examination- Primary Preoperative examination, unspecified Ovarian cancer, bilateral (HCC) 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, unspecified Essential hypertension, benign Mixed hyperlipidemia Other 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, unspecified chronicity (HCC) Pure hypercholesterolemia 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) Hypothyroidism, acquired Unspecified hypothyroidism Primary insomnia Persistent disorder of initiating or maintaining sleep Neoplasm of uncertain behavior of skin- Primary 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, unspecified documented in this encounter [facility] note* Diagnosis 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, uncontrolled HYPOTHYROIDISM NOS Unspecified hypothyroidism Pre-operative examination- Primary Preoperative examination, unspecified Ovarian cancer, bilateral (HCC) 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, unspecified Essential hypertension, benign Mixed hyperlipidemia Other 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, unspecified chronicity (HCC) Pure hypercholesterolemia 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) Hypothyroidism, acquired Unspecified hypothyroidism Primary insomnia Persistent disorder of initiating or maintaining sleep Vitamin B12 deficiency- Primary Other B-complex deficiencies [facility]* Diagnosis 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, uncontrolled HYPOTHYROIDISM NOS Unspecified hypothyroidism Pre-operative examination- Primary Preoperative examination, unspecified Ovarian cancer, bilateral (HCC) 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, unspecified Essential hypertension, benign Mixed hyperlipidemia Other 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, unspecified chronicity (HCC) Pure hypercholesterolemia 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) Hypothyroidism, acquired Unspecified hypothyroidism Primary insomnia Persistent disorder of initiating or maintaining sleep Malignant neoplasm of bilateral ovaries (HCC) Unspecified [facility] 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, uncontrolled HYPOTHYROIDISM NOS Unspecified hypothyroidism Pre-operative examination- Primary Preoperative examination, unspecified Ovarian cancer, bilateral (HCC) 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, unspecified Essential hypertension, benign Mixed hyperlipidemia Other 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, unspecified chronicity (HCC) Pure hypercholesterolemia 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) Hypothyroidism, acquired Unspecified hypothyroidism Primary insomnia Persistent disorder of initiating or maintaining sleep Unspecified hypothyroidism- Primary [facility]* Diagnosis 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, uncontrolled HYPOTHYROIDISM NOS Unspecified hypothyroidism Pre-operative examination- Primary Preoperative examination, unspecified Ovarian cancer, bilateral (HCC) 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, unspecified Essential hypertension, benign Mixed hyperlipidemia Other 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, unspecified chronicity (HCC) Pure hypercholesterolemia 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) Hypothyroidism, acquired Unspecified hypothyroidism Primary insomnia Persistent disorder of initiating or maintaining sleep Pure hypercholesterolemia- Primary Essential hypertension, benign Vitamin B12 deficiency Other B-complex deficiencies Other 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, unspecified chronicity (HCC) Chronic anticoagulation Long-term (current) use of anticoagulants 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, unspecified whether pain present 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, unspecified Urinary incontinence, unspecified type 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, 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, 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) (HCC) Hypothyroidism, acquired Unspecified hypothyroidism Right hip pain Pain in joint, pelvic region and thigh Injury of right hip, subsequent encounter Vitamin C deficiency Ascorbic acid deficiency Vitamin D deficiency Unspecified vitamin D deficiency Urge incontinence [facility] Diagnosis 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, uncontrolled HYPOTHYROIDISM NOS Unspecified hypothyroidism Pre-operative examination- Primary Preoperative examination, unspecified Ovarian cancer, bilateral (HCC) 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, unspecified Essential hypertension, benign Mixed hyperlipidemia Other 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, unspecified chronicity (HCC) Pure hypercholesterolemia 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) Hypothyroidism, acquired Unspecified hypothyroidism Primary insomnia Persistent disorder of initiating or maintaining sleep Vitamin B12 deficiency- Primary Other B-complex deficiencies [facility]* Diagnosis 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, uncontrolled HYPOTHYROIDISM NOS Unspecified hypothyroidism Pre-operative examination- Primary Preoperative examination, unspecified Ovarian cancer, bilateral (HCC) 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, unspecified Essential hypertension, benign Mixed hyperlipidemia Other 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, unspecified chronicity (HCC) Pure hypercholesterolemia 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) Hypothyroidism, acquired Unspecified hypothyroidism Primary insomnia Persistent disorder of initiating or maintaining sleep Chronic anticoagulation- Primary Long-term (current) use of anticoagulants Phlebitis Phlebitis and thrombophlebitis of unspecified site Pulmonary embolism, other, unspecified chronicity, unspecified whether acute cor pulmonale present (HCC) documented in this encounter [facility] note* Diagnosis 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, uncontrolled HYPOTHYROIDISM NOS Unspecified hypothyroidism Pre-operative examination- Primary Preoperative examination, unspecified Ovarian cancer, bilateral (HCC) 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, unspecified Essential hypertension, benign Mixed hyperlipidemia Other 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, unspecified chronicity (HCC) Pure hypercholesterolemia 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) Hypothyroidism, acquired Unspecified hypothyroidism Primary insomnia Persistent disorder of initiating or maintaining sleep Pulmonary embolism, other, unspecified chronicity, unspecified whether acute cor pulmonale present (HCC)- Primary [facility]* Diagnosis 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, uncontrolled HYPOTHYROIDISM NOS Unspecified hypothyroidism Pre-operative examination- Primary Preoperative examination, unspecified Ovarian cancer, bilateral (HCC) 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, unspecified Essential hypertension, benign Mixed hyperlipidemia Other 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, unspecified chronicity (HCC) Pure hypercholesterolemia 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) Hypothyroidism, acquired Unspecified hypothyroidism Primary insomnia Persistent disorder of initiating or maintaining sleep Malignant neoplasm of bilateral ovaries (HCC) [facility] Diagnosis 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, uncontrolled HYPOTHYROIDISM NOS Unspecified hypothyroidism Pre-operative examination- Primary Preoperative examination, unspecified Ovarian cancer, bilateral (HCC) 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, unspecified Essential hypertension, benign Mixed hyperlipidemia Other 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, unspecified chronicity (HCC) Pure hypercholesterolemia 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) Hypothyroidism, acquired Unspecified hypothyroidism Primary insomnia Persistent disorder of initiating or maintaining sleep Vitamin B12 deficiency- Primary Other B-complex deficiencies documented in this encounter [facility]* Diagnosis 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, uncontrolled HYPOTHYROIDISM NOS Unspecified hypothyroidism Pre-operative examination- Primary Preoperative examination, unspecified Ovarian cancer, bilateral (HCC) 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, unspecified Essential hypertension, benign Mixed hyperlipidemia Other 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, unspecified chronicity (HCC) Pure hypercholesterolemia 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) Hypothyroidism, acquired Unspecified hypothyroidism Primary insomnia Persistent disorder of initiating or maintaining sleep Chronic anticoagulation- Primary Long-term (current) use of anticoagulants Phlebitis Phlebitis and thrombophlebitis of unspecified site documented in this encounter [facility]* Diagnosis 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, uncontrolled HYPOTHYROIDISM NOS Unspecified hypothyroidism Pre-operative examination- Primary Preoperative examination, unspecified Ovarian cancer, bilateral (HCC) 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, unspecified Essential hypertension, benign Mixed hyperlipidemia Other 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, unspecified chronicity (HCC) Pure hypercholesterolemia 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) Hypothyroidism, acquired Unspecified hypothyroidism Primary insomnia Persistent disorder of initiating or maintaining sleep Malignant neoplasm of bilateral ovaries (HCC) documented in this encounter [facility]* Diagnosis 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, uncontrolled HYPOTHYROIDISM NOS Unspecified hypothyroidism Pre-operative examination- Primary Preoperative examination, unspecified Ovarian cancer, bilateral (HCC) 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, unspecified Essential hypertension, benign Mixed hyperlipidemia Other 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, unspecified chronicity (HCC) Pure hypercholesterolemia 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) Hypothyroidism, acquired Unspecified hypothyroidism Primary insomnia Persistent disorder of initiating or maintaining sleep 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, unspecified [facility] Diagnosis 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, uncontrolled HYPOTHYROIDISM NOS Unspecified hypothyroidism Pre-operative examination- Primary Preoperative examination, unspecified Ovarian cancer, bilateral (HCC) 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, unspecified Essential hypertension, benign Mixed hyperlipidemia Other 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, unspecified chronicity (HCC) Pure hypercholesterolemia 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) Hypothyroidism, acquired Unspecified hypothyroidism Primary insomnia Persistent disorder of initiating or maintaining sleep Vitamin B12 deficiency- Primary Other B-complex deficiencies [facility] Diagnosis 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, uncontrolled HYPOTHYROIDISM NOS Unspecified hypothyroidism Pre-operative examination- Primary Preoperative examination, unspecified Ovarian cancer, bilateral (HCC) 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, unspecified Essential hypertension, benign Mixed hyperlipidemia Other 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, unspecified chronicity (HCC) Pure hypercholesterolemia 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) Hypothyroidism, acquired Unspecified hypothyroidism Primary insomnia Persistent disorder of initiating or maintaining sleep Chronic anticoagulation- Primary Long-term (current) use of anticoagulants Phlebitis Phlebitis and thrombophlebitis of unspecified site [facility] Diagnosis 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, uncontrolled HYPOTHYROIDISM NOS Unspecified hypothyroidism Pre-operative examination- Primary Preoperative examination, unspecified Ovarian cancer, bilateral (HCC) 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, unspecified Essential hypertension, benign Mixed hyperlipidemia Other 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, unspecified chronicity (HCC) Pure hypercholesterolemia 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) Hypothyroidism, acquired Unspecified hypothyroidism Primary insomnia Persistent disorder of initiating or maintaining sleep Acute non-recurrent maxillary sinusitis- Primary Essential hypertension, benign Chronic anticoagulation Long-term (current) use of anticoagulants Hypothyroidism, acquired Unspecified hypothyroidism 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, 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, on [facility] insulin pump (HCC) Vitamin B12 deficiency Other B-complex deficiencies Pure hypercholesterolemia 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, unspecified [facility]* Diagnosis 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, uncontrolled HYPOTHYROIDISM NOS Unspecified hypothyroidism Pre-operative examination- Primary Preoperative examination, unspecified Ovarian cancer, bilateral (HCC) 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, unspecified Essential hypertension, benign Mixed hyperlipidemia Other 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, unspecified chronicity (HCC) Pure hypercholesterolemia 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) Hypothyroidism, acquired Unspecified hypothyroidism Primary insomnia Persistent disorder of initiating or maintaining sleep Vitamin B12 deficiency- Primary Other B-complex deficiencies [facility]* Diagnosis 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, uncontrolled HYPOTHYROIDISM NOS Unspecified hypothyroidism Pre-operative examination- Primary Preoperative examination, unspecified Ovarian cancer, bilateral (HCC) 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, unspecified Essential hypertension, benign Mixed hyperlipidemia Other 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, unspecified chronicity (HCC) Pure hypercholesterolemia 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) Hypothyroidism, acquired Unspecified hypothyroidism Primary insomnia Persistent disorder of initiating or maintaining sleep Chronic anticoagulation- Primary Long-term (current) use of anticoagulants Phlebitis Phlebitis and thrombophlebitis of unspecified site [facility]* Diagnosis 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, uncontrolled HYPOTHYROIDISM NOS Unspecified hypothyroidism Pre-operative examination- Primary Preoperative examination, unspecified Ovarian cancer, bilateral (HCC) 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, unspecified Essential hypertension, benign Mixed hyperlipidemia Other 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, unspecified chronicity (HCC) Pure hypercholesterolemia 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) Hypothyroidism, acquired Unspecified hypothyroidism Primary insomnia Persistent disorder of initiating or maintaining sleep Chronic anticoagulation- Primary Long-term (current) use of anticoagulants Phlebitis Phlebitis and thrombophlebitis of unspecified site [facility]* Diagnosis 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, uncontrolled HYPOTHYROIDISM NOS Unspecified hypothyroidism Pre-operative examination- Primary Preoperative examination, unspecified Ovarian cancer, bilateral (HCC) 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, unspecified Essential hypertension, benign Mixed hyperlipidemia Other 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, unspecified chronicity (HCC) Pure hypercholesterolemia 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) Hypothyroidism, acquired Unspecified hypothyroidism Primary insomnia Persistent disorder of initiating or maintaining sleep Malignant neoplasm of both ovaries (HCC)- Primary Malignant neoplasm of ovary Ovarian cancer, bilateral (HCC) Pulmonary embolism, other, unspecified chronicity, unspecified whether acute cor pulmonale present (HCC) documented in this [facility]* Diagnosis 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, uncontrolled HYPOTHYROIDISM NOS Unspecified hypothyroidism Pre-operative examination- Primary Preoperative examination, unspecified Ovarian cancer, bilateral (HCC) 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, unspecified Essential hypertension, benign Mixed hyperlipidemia Other 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, unspecified chronicity (HCC) Pure hypercholesterolemia 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) Hypothyroidism, acquired Unspecified hypothyroidism Primary insomnia Persistent disorder of initiating or maintaining sleep Vitamin B12 deficiency- Primary Other B-complex deficiencies documented in this encounter [facility] note* Diagnosis 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, uncontrolled HYPOTHYROIDISM NOS Unspecified hypothyroidism Pre-operative examination- Primary Preoperative examination, unspecified Ovarian cancer, bilateral (HCC) 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, unspecified Essential hypertension, benign Mixed hyperlipidemia Other 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, unspecified chronicity (HCC) Pure hypercholesterolemia 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) Hypothyroidism, acquired Unspecified hypothyroidism Primary insomnia Persistent disorder of initiating or maintaining sleep Pulmonary embolism, other, unspecified chronicity, unspecified whether acute cor pulmonale present (HCC) Malignant neoplasm of both ovaries (HCC) Malignant neoplasm of ovary documented in this encounter [facility] note* Diagnosis 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, uncontrolled HYPOTHYROIDISM NOS Unspecified hypothyroidism Pre-operative examination- Primary Preoperative examination, unspecified Ovarian cancer, bilateral (HCC) 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, unspecified Essential hypertension, benign Mixed hyperlipidemia Other 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, unspecified chronicity (HCC) Pure hypercholesterolemia 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) Hypothyroidism, acquired Unspecified hypothyroidism Primary insomnia Persistent disorder of initiating or maintaining sleep Vitamin B12 deficiency- Primary Other B-complex deficiencies [facility]* Diagnosis 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, uncontrolled HYPOTHYROIDISM NOS Unspecified hypothyroidism Pre-operative examination- Primary Preoperative examination, unspecified Ovarian cancer, bilateral (HCC) 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, unspecified Essential hypertension, benign Mixed hyperlipidemia Other 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, unspecified chronicity (HCC) Pure hypercholesterolemia 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) Hypothyroidism, acquired Unspecified hypothyroidism Primary insomnia Persistent disorder of initiating or maintaining sleep Generalized abdominal pain- Primary Abdominal pain, generalized Bowel habit changes Other symptoms involving digestive system 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, unspecified Malignant neoplasm of both ovaries (HCC) Malignant neoplasm of ovary Bowel habit changes Other symptoms involving digestive system Generalized abdominal pain Abdominal pain, generalized 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, unspecified Malignant neoplasm of both ovaries (HCC) Malignant neoplasm of ovary Bowel habit changes Other symptoms involving digestive system Generalized abdominal pain Abdominal pain, generalized [facility] Diagnosis 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, uncontrolled HYPOTHYROIDISM NOS Unspecified hypothyroidism Pre-operative examination- Primary Preoperative examination, unspecified Ovarian cancer, bilateral (HCC) 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, unspecified Essential hypertension, benign Mixed hyperlipidemia Other 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, unspecified chronicity (HCC) Pure hypercholesterolemia 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) Hypothyroidism, acquired Unspecified hypothyroidism Primary insomnia Persistent disorder of initiating or maintaining sleep 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, unspecified documented in this encounter [facility] for referral (narrative)* Outpatient Procedure (Routine) - Authorized Specialty Diagnoses / Procedures Referred By Ethan t [facility] Diagnoses Encounter for chemotherapy management Procedures ECHO ECHO TTHRC R-T 2D W/WOM-MODE COMPL SPEC&COLR D 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, 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 [employer] [address] [place] [address] [facility] [address] [place] [address] Referral ID Status Reason Start Date Expiration Date Visits Requested Visits Authorized [id number] Authorized Auto-Generat ed Referral 06/08/2021 06/08/2022 1 [facility] Diagnostic Procedure Only (Routine) - Pending Review Specialty Diagnoses / Procedures Referred By Contac t Referred To Contact XR IMAGING Diagnoses Chronic midline low 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 DDD (degenerative disc disease), lumbar Procedures XR LUMBAR GENERAL 3V AP/LAT/L5-S1 RADEX SPINE LUMBOSACRAL 2/3 VIEWS Melchor Washington, [address] [place] [address] [place] [id number] Referral ID Status Reason Start Date Expiration Date Visits Requested Visits Authorized [id number] Pending Review Auto-Generat ed Referral 07/17/2023 08/15/2024 1 1 [facility] Advance Directives Documents on File Type Date 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 Advance Directive(s) 05/13/2021 8:29 AM Advance Directive(s) 04/06/2021 2:00 PM Advance Directive(s) 02/15/2016 11:42 AM Documents on File Type Date Recorded 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 Advance Directive(s) 05/13/2021 8:29 AM Advance Directive(s) 04/06/2021 2:00 PM Advance Directive(s) 02/15/2016 11:42 AM Advance Directive Response Recorded Date/ Time Advance Directives Yes April 20, 2016 11:28am Living Will Yes July 19, 2017 1 2:09pm Power of Texture Artist Yes July 19, 2017 12:09pm Medications Administered Section Inactive Administered Medications - up to 3 most recent administrations Medication Order MAR Action Action Date Dose Rate Site dexAMETHasone 10 mg/NS 50 mL (PYXIS) 10 mg ivpb 10 mg, INTRAVENOUS, ONCE, 1 dose, On Sun06/21/21 at 0830, Give 30 minutes prior to chemotherapy. Refrigerate. New Bag/Syringe/Bottle 06/21/2021 9:11 AM EDT 10 mg diphenhydrAMINE 50 mg injection (BENADRYL) 50 mg, INTRAVENOUS, ONCE, 1 dose, On Sun06/21/21 at 0830, Give 30 minutes prior to chemotherapy. Given 06/21/2021 9:13 AM EDT 50 mg diphenhydrAMINE 50 mg injection (BENADRYL) 50 mg, INTRAVENOUS, NEEDED, 1 dose, Starting on Sun06/21/21 at 0810, Until Sun06/21/21 at 1014, Administer per hypersensitivity/anaphylaxis grading in nursing communication Given 06/21/2021 10:14 AM EDT 50 mg DOXOrubicin LIPOSOMAL 72 mg in D5W 250 mL (DOXIL, LIPODOX) 72 mg (40 mg/m2 1.8 m2 Treatment Plan BSA from Recorded weight), INTRAVENOUS, Administer over 1 Hours, ONCE, 1 dose, On Sun06/21/21 at 0830, DO NOT SHAKE BAG Approx Total Volume: EXP: Hazardous Chemotherapy Drug: Use appropriate PPE. Antineoplastic Irritant. Flush line with D5W before and after administration. New Bag/Syringe/Bottle 06/21/2021 10:08 AM EDT 72 mg hydrocortisone sodium succinate (PF) 100 mg injection (Solu-CORTEF) 100 mg, INTRAVENOUS, NEEDED, 1 dose, Starting on Sun06/21/21 at 0810, Until Sun06/21/21 at 1014, Administer per hypersensitivity/anaphylaxis grading in nursing communication Given 06/21/2021 10:14 AM EDT 100 mg Inactive Administered Medications - up to 3 most recent administrations Medication Order MAR Action Action Date Dose Rate Site dexAMETHasone 20 mg in 0.9% NaCl 50 mL (DECADRON) 20 mg, INTRAVENOUS, Administer over 15 Minutes, ONCE, 1 dose, On Sun06/28/21 at 1030, Give 30 minutes prior to chemotherapy. Refrigerate. New Bag/Syringe/Bottle 06/28/2021 10:41 AM EDT 20 mg diphenhydrAMINE 50 mg injection (BENADRYL) 50 mg, INTRAVENOUS, ONCE, 1 dose, On Sun06/28/21 at 1030, Give 30 minutes prior to chemotherapy. Given 06/28/2021 10:42 AM EDT 50 mg DOXOrubicin LIPOSOMAL 72 mg in D5W 250 mL (DOXIL, LIPODOX) 72 mg (40 mg/m2 1.8 m2 Treatment Plan BSA from Recorded weight), INTRAVENOUS, Administer over 1 Hours, ONCE, 1 dose, On Sun06/28/21 at 1030, DO NOT SHAKE BAG Approx Total Volume: EXP: Hazardous Chemotherapy Drug: Use appropriate PPE. Antineoplastic Irritant. Flush line with D5W before and after administration. New Bag/Syringe/Bottle 06/28/2021 11:38 AM EDT 72 mg Inactive Administered Medications - up to 3 most recent administrations Medication Order MAR Action Action Date Dose Rate Site DOXOrubicin LIPOSOMAL 72 mg in D5W 311 mL (DOXIL, LIPODOX) 72 mg (40 mg/m2 1.8 m2 Treatment Plan BSA from Recorded weight), INTRAVENOUS, Administer over 1 Hours, ONCE, 1 dose, On Sun07/26/21 at 1000, DO NOT SHAKE BAG EXP: Hazardous Chemotherapy Drug: Use appropriate PPE. Antineoplastic Irritant. Flush line with D5W before and after administration. New Bag/Syringe/Bottle 07/26/2021 11:09 AM EDT 72 mg ondansetron (PF) 8 mg injection (ZOFRAN) 8 mg, INTRAVENOUS, ONCE, 1 dose, On Sun07/26/21 at 1000 Given 07/26/2021 10:11 AM EDT 8 mg Inactive Administered Medications - up to 3 most recent administrations Medication Order MAR Action Action Date Dose Rate Site DOXOrubicin LIPOSOMAL 72 mg in D5W 311 mL (DOXIL, LIPODOX) 72 mg (40 mg/m2 1.8 m2 Treatment Plan BSA from Recorded weight), INTRAVENOUS, Administer over 1 Hours, ONCE, 1 dose, On Sun08/24/21 at 1100, DO NOT SHAKE BAG Approx Total Volume EXP: Hazardous Chemotherapy Drug: Use appropriate PPE. Antineoplastic Irritant. Flush line with D5W before and after administration. New Bag/Syringe/Bottle 08/24/2021 11:35 AM EDT 72 mg ondansetron (PF) 8 mg injection (ZOFRAN) 8 mg, INTRAVENOUS, ONCE, 1 dose, On Sun08/24/21 at 1100 Given 08/24/2021 11:07 AM EDT 8 mg Active Administered Medications - up to 3 most recent administrations Medication Order MAR Action Action Date Dose Rate Site cyanocobalamin 1,000 mcg injection 1,000 mcg, INTRAMUSCULAR, DIRECTED, Starting on Sun12/26/21 at 1800, Until Discontinued, Inject 1 mL IM every 1 week x 4 weeks, then every 2 weeks x 1 month, then once a month Given 12/27/2021 12:58 PM EDT 1,000 mcg Deltoid, Right Active Administered Medications - up to 3 most recent administrations Medication Order MAR Action Action Date Dose Rate Site cyanocobalamin 1,000 mcg injection 1,000 mcg, INTRAMUSCULAR, DIRECTED, Starting on Sun12/26/21 at 1800, Until Discontinued, Inject 1 mL IM every 1 week x 4 weeks, then every 2 weeks x 1 month, then once a month Given 01/05/2022 11:02 AM EDT 1,000 mcg Deltoid, Left Given 12/27/2021 12:58 PM EDT 1,000 mcg D eltoid, Right Active Administered Medications - up to 3 most recent administrations Medication Order MAR Action Action Date Dose Rate Site cyanocobalamin 1,000 mcg injection 1,000 mcg, INTRAMUSCULAR, DIRECTED, Starting on Sun12/26/21 at 1800, Until Discontinued, Inject 1 mL IM every 1 week x 4 weeks, then every 2 weeks x 1 month, then once a month Given 01/12/2022 11:02 AM EDT 1,000 mcg Deltoid, Right Given 01/05/2022 11:02 AM EDT 1,000 mcg D eltoid, Left Given 12/27/2021 12:58 PM EDT 1,000 mcg D eltoid, Right Active Administered Medications - up to 3 most recent administrations Medication Order MAR Action Action Date Dose Rate Site cyanocobalamin 1,000 mcg injection 1,000 mcg, INTRAMUSCULAR, DIRECTED, Starting on Sun12/26/21 at 1800, Until Discontinued, Inject 1 mL IM every 1 week x 4 weeks, then every 2 weeks x 1 month, then once a month Given 01/19/2022 11:00 AM EST 1,000 mcg Deltoid, Left Given 01/12/2022 11:02 AM EDT 1,000 mcg D eltoid, Right Given 01/05/2022 11:02 AM EDT 1,000 mcg D eltoid, Left Active Administered Medications - up to 3 most recent administrations Medication Order MAR Action Action Date Dose Rate Site cyanocobalamin 1,000 mcg injection 1,000 mcg, INTRAMUSCULAR, DIRECTED, Starting on Sun12/26/21 at 1800, Until Discontinued, Inject 1 mL IM every 1 week x 4 weeks, then every 2 weeks x 1 month, then once a month Given 01/31/2022 12:56 PM EST 1,000 mcg Deltoid, Right Given 01/19/2022 11:00 AM EST 1,000 mcg D eltoid, Left Given 01/12/2022 11:02 AM EDT 1,000 mcg D eltoid, Right Active Administered Medications - up to 3 most recent administrations Medication Order MAR Action Action Date Dose Rate Site cyanocobalamin 1,000 mcg injection 1,000 mcg, INTRAMUSCULAR, DIRECTED, Starting on Sun12/26/21 at 1800, Until Discontinued, Inject 1 mL IM every 1 week x 4 weeks, then every 2 weeks x 1 month, then once a month Given 02/14/2022 9:59 AM EST 1,000 mcg Deltoid, Left Given 01/31/2022 12:56 PM EST 1,000 mcg D eltoid, Right Given 01/19/2022 11:00 AM EST 1,000 mcg D eltoid, Left Active Administered Medications - up to 3 most recent administrations Medication Order MAR Action Action Date Dose Rate Site cyanocobalamin 1,000 mcg injection 1,000 mcg, INTRAMUSCULAR, EVERY 4 WEEKS, 12 doses, First dose on Sun03/20/22 at 1300, Last dose on Sun01/22/23 at 1300 Given 03/20/2022 1:25 PM EST 1,000 mcg Deltoid, Right Active Administered Medications - up to 3 most recent administrations Medication Order MAR Action Action Date Dose Rate Site cyanocobalamin 1,000 mcg injection 1,000 mcg, INTRAMUSCULAR, EVERY 4 WEEKS, 12 doses, First dose on Sun03/20/22 at 1300, Last dose on Sun01/22/23 at 1300 Given 04/17/2022 10:02 AM EST 1,000 mcg Deltoid, Left Given 03/20/2022 1:25 PM EST 1,000 mcg De ltoid, Right Active Administered Medications - up to 3 most recent administrations Medication Order MAR Action Action Date Dose Rate Site cyanocobalamin 1,000 mcg injection 1,000 mcg, INTRAMUSCULAR, EVERY 4 WEEKS, 12 doses, First dose on Sun03/20/22 at 1300, Last dose on Sun01/22/23 at 1300 Given 06/12/2022 9:51 AM EDT 1,000 mcg Deltoid, Left Given 05/15/2022 9:55 AM EST 1,000 mcg De ltoid, Right Given 04/17/2022 10:02 AM EST 1,000 mcg D eltoid, Left Active Administered Medications - up to 3 most recent administrations Medication Order MAR Action Action Date Dose Rate Site cyanocobalamin 1,000 mcg injection 1,000 mcg, INTRAMUSCULAR, EVERY 4 WEEKS, 12 doses, First dose on Sun03/20/22 at 1300, Last dose on Sun01/22/23 at 1300 Given 07/10/2022 10:10 AM EDT 1,000 mcg Deltoid, Left Given 06/12/2022 9:51 AM EDT 1,000 mcg De ltoid, Left Given 05/15/2022 9:55 AM EST 1,000 mcg De ltoid, Right Active Administered Medications - up to 3 most recent administrations Medication Order MAR Action Action Date Dose Rate Site cyanocobalamin 1,000 mcg injection 1,000 mcg, INTRAMUSCULAR, EVERY 4 WEEKS, 12 doses, First dose on Sun03/20/22 at 1300, Last dose on Sun01/22/23 at 1300 Given 08/15/2022 9:58 AM EDT 1,000 mcg Deltoid, Right Given 07/10/2022 10:10 AM EDT 1,000 mcg D eltoid, Left Given 06/12/2022 9:51 AM EDT 1,000 mcg De ltoid, Left Active Administered Medications - up to 3 most recent administrations Medication Order MAR Action Action Date Dose Rate Site cyanocobalamin 1,000 mcg injection 1,000 mcg, INTRAMUSCULAR, EVERY 4 WEEKS, 12 doses, First dose on Sun03/20/22 at 1300, Last dose on Sun01/22/23 at 1300 Given 09/11/2022 10:46 AM EDT 1,000 mcg Deltoid, Left Given 08/15/2022 9:58 AM EDT 1,000 mcg De ltoid, Right Given 07/10/2022 10:10 AM EDT 1,000 mcg D eltoid, Left Active Administered Medications - up to 3 most recent administrations Medication Order MAR Action Action Date Dose Rate Site cyanocobalamin 1,000 mcg injection 1,000 mcg, INTRAMUSCULAR, EVERY 4 WEEKS, 12 doses, First dose on Sun03/20/22 at 1300, Last dose on Sun01/22/23 at 1300 Given 10/10/2022 10:04 AM EDT 1,000 mcg Deltoid, Right Given 09/11/2022 10:46 AM EDT 1,000 mcg D eltoid, Left Given 08/15/2022 9:58 AM EDT 1,000 mcg De ltoid, Right Active Administered Medications - up to 3 most recent administrations Medication Order MAR Action Action Date Dose Rate Site cyanocobalamin 1,000 mcg injection 1,000 mcg, INTRAMUSCULAR, EVERY 4 WEEKS, 12 doses, First dose on Sun03/20/22 at 1300, Last dose on Sun01/22/23 at 1300 Given 11/07/2022 10:18 AM EDT 1,000 mcg Deltoid, Left Given 10/10/2022 10:04 AM EDT 1,000 mcg D eltoid, Right Given 09/11/2022 10:46 AM EDT 1,000 mcg D eltoid, Left Active Administered Medications - up to 3 most recent administrations Medication Order MAR Action Action Date Dose Rate Site cyanocobalamin 1,000 mcg injection 1,000 mcg, INTRAMUSCULAR, EVERY 4 WEEKS, 12 doses, First dose on Sun03/20/22 at 1300, Last dose on Sun01/22/23 at 1300 Given 12/05/2022 10:14 AM EDT 1,000 mcg Deltoid, Right Given 11/07/2022 10:18 AM EDT 1,000 mcg D eltoid, Left Given 10/10/2022 10:04 AM EDT 1,000 mcg D eltoid, Right Active Administered Medications - up to 3 most recent administrations Medication Order MAR Action Action Date Dose Rate Site cyanocobalamin 1,000 mcg injection 1,000 mcg, INTRAMUSCULAR, EVERY 4 WEEKS, 12 doses, First dose on Sun03/20/22 at 1300, Last dose on Sun01/22/23 at 1300 Given 01/02/2023 10:14 AM EDT 1,000 mcg Deltoid, Left Given 12/05/2022 10:14 AM EDT 1,000 mcg D eltoid, Right Given 11/07/2022 10:18 AM EDT 1,000 mcg D eltoid, Left Inactive Administered Medications - up to 3 most recent administrations Medication Order MAR Action Action Date Dose Rate Site cyanocobalamin 1,000 mcg injection 1,000 mcg, INTRAMUSCULAR, EVERY 4 WEEKS, 12 doses, First dose on Sun03/20/22 at 1300, Last dose on Sun01/22/23 at 1300 Given 01/30/2023 9:50 AM EST 1,000 mcg Deltoid, Right Given 01/02/2023 10:14 AM EDT 1,000 mcg D eltoid, Left Given 12/05/2022 10:14 AM EDT 1,000 mcg D eltoid, Right Reason for Referral Specialty Diagnoses / Procedures Referred By Contac t Referred To Contact CT IMAGING Diagnoses Malignant neoplasm of both ovaries (HCC) Procedures CT ABD/PEL WO IVCON CT ABD & PELVIS W/O CONTRAST 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, 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 [address] [place] [address] Ct Imaging Referral ID Status Reason Start Date Expiration Date V isits Requested Visits Authorized [id number] Closed Auto-Generate d Referral 05/17/2021 06/16/2022 1 1 Specialty Diagnoses / Procedures Referred By Contac t Referred To Contact CT IMAGING Diagnoses Lung nodules Malignant neoplasm of both ovaries (HCC) Procedures CT CHEST WO IVCON DIAGNOSTIC COMPUTED TOMOGRAPHY THORAX W/O CNTRST 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, 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 [address] [place] [address] Ct Imaging Referral ID Status Reason Start Date Expiration Date V isits Requested Visits Authorized [id number] Closed Auto-Generate d Referral 05/17/2021 06/16/2022 1 1 Specialty Diagnoses / Procedures Referred By Contac t Referred To Contact [facility] Diagnoses Dizziness Procedures CONSULT TO PHYSICAL THERAPY PHYSICAL THERAPY EVALUATION HIGH COMPLEX 45 MINS Melchor Washington, DO [address] [place] [address] [facility] [address] [place] [address] Referral ID Status Reason Start Date Expiration Date Visits Requested Visits Authorized [id number] Pending Review Auto-Generat ed Referral 07/03/2022 07/03/2023 1 1 Specialty Diagnoses / Procedures Referred By Contac t Referred To Contact Orthopedics Diagnoses Right hip pain Injury of right hip, subsequent encounter Procedures CONSULT TO ORTHOPAEDICS OFFICE/OUTPATIENT [facility] 60 MINUTES Kapil Guillen APRN.[employer] [address] [place] [address] Referral ID Status Reason Start Date Expiration Date Visits Requested Visits Authorized [id number] Authorized PCP Requested Referral 10/30/2023 10/22/2024 1 1 Chief Complaint and Reason for Visit Chief Complaint 3 M FU Reason for Visit Hypothyroidism (acqu ired) Insulin pump titration Presence of insulin pump Type 1 diabetes mellitus, with long-term current use of insulin Family History Relationship Condition Age at Onset Recorded Date/T ester mother Malignant neoplasm of breast Unknown father Cardiac disease Unknown Summary Purpose Additional Source Comments Source Comments (unrecognize d section and content) In the event this informatio n is protected by the Federal Confidentiality of Alcohol and Drug Abuse Patient Records regulations: The Federal rules restrict any use of the information to criminally investigate or prosecute any alcohol or drug abuse patient.[facility] the event this information is protected by the Federal Confidentiality of Alcohol and Drug Abuse Patient Records regulations: The Federal rules restrict any use of the information to criminally investigate or prosecute any alcohol or drug abuse patient.[facility]In the event this information is protected by the Federal Confidentiality of Alcohol and Drug Abuse Patient Records regulations: The Federal rules restrict any use of the information to criminally investigate or prosecute any alcohol or drug abuse patient.[facility]In the event this information is protected by the Federal Confidentiality of Alcohol and Drug Abuse Patient Records regulations: The Federal rules restrict any use of the information to criminally investigate or prosecute any alcohol or drug abuse patient.[facility]In the event this information is protected by the Federal Confidentiality of Alcohol and Drug Abuse Patient Records regulations: The Federal rules restrict any use of the information to criminally investigate or prosecute any alcohol or drug abuse patient.[facility]In the event this information is protected by the Federal Confidentiality of Alcohol and Drug Abuse Patient Records regulations: The Federal rules restrict any use of the information to criminally investigate or prosecute any alcohol or drug abuse patient.[facility]In the event this information is protected by the Federal Confidentiality of Alcohol and Drug Abuse Patient Records regulations: The Federal rules restrict any use of the information to criminally investigate or prosecute any alcohol or drug abuse patient.[facility]In the event this information is protected by the Federal Confidentiality of Alcohol and Drug Abuse Patient Records regulations: The Federal rules restrict any use of the information to criminally investigate or prosecute any alcohol or drug abuse patient.[facility]In the event this information is protected by the Federal Confidentiality of Alcohol and Drug Abuse Patient Records regulations: The Federal rules restrict any use of the information to criminally investigate or prosecute any alcohol or drug abuse patient.[facility]In the event this information is protected by the Federal Confidentiality of Alcohol and Drug Abuse Patient Records regulations: The Federal rules restrict any use of the information to criminally investigate or prosecute any alcohol or drug abuse patient.[facility]In the event this information is protected by the Federal Confidentiality of Alcohol and Drug Abuse Patient Records regulations: The Federal rules restrict any use of the information to criminally investigate or prosecute any alcohol or drug abuse patient.[facility]In the event this information is protected by the Federal Confidentiality of Alcohol and Drug Abuse Patient Records regulations: The Federal rules restrict any use of the information to criminally investigate or prosecute any alcohol or drug abuse patient.[facility]In the event this information is protected by the Federal Confidentiality of Alcohol and Drug Abuse Patient Records regulations: The Federal rules restrict any use of the information to criminally investigate or prosecute any alcohol or drug abuse patient.[facility]In the event this information is protected by the Federal Confidentiality of Alcohol and Drug Abuse Patient Records regulations: The Federal rules restrict any use of the information to criminally investigate or prosecute any alcohol or drug abuse patient.[facility] HospitalIn the event this information is protected by the Federal Confidentiality of Alcohol and Drug Abuse Patient Records regulations: The Federal rules restrict any use of the information to criminally investigate or prosecute any alcohol or drug abuse patient.[facility] HospitalIn the event this information is protected by the Federal Confidentiality of Alcohol and Drug Abuse Patient Records regulations: The Federal rules restrict any use of the information to criminally investigate or prosecute any alcohol or drug abuse patient.[facility]In the event this information is protected by the Federal Confidentiality of Alcohol and Drug Abuse Patient Records regulations: The Federal rules restrict any use of the information to criminally investigate or prosecute any alcohol or drug abuse patient.[facility] HospitalIn the event this information is protected by the Federal Confidentiality of Alcohol and Drug Abuse Patient Records regulations: The Federal rules restrict any use of the information to criminally investigate or prosecute any alcohol or drug abuse patient.[facility] HospitalIn the event this information is protected by the Federal Confidentiality of Alcohol and Drug Abuse Patient Records regulations: The Federal rules restrict any use of the information to criminally investigate or prosecute any alcohol or drug abuse patient.[facility] HospitalIn the event this information is protected by the Federal Confidentiality of Alcohol and Drug Abuse Patient Records regulations: The Federal rules restrict any use of the information to criminally investigate or prosecute any alcohol or drug abuse patient.[facility] HospitalIn the event this information is protected by the Federal Confidentiality of Alcohol and Drug Abuse Patient Records regulations: The Federal rules restrict any use of the information to criminally investigate or prosecute any alcohol or drug abuse patient.[facility] HospitalIn the event this information is protected by the Federal Confidentiality of Alcohol and Drug Abuse Patient Records regulations: The Federal rules restrict any use of the information to criminally investigate or prosecute any alcohol or drug abuse patient.[facility] HospitalIn the event this information is protected by the Federal Confidentiality of Alcohol and Drug Abuse Patient Records regulations: The Federal rules restrict any use of the information to criminally investigate or prosecute any alcohol or drug abuse patient.[facility] HospitalIn the event this information is protected by the Federal Confidentiality of Alcohol and Drug Abuse Patient Records regulations: The Federal rules restrict any use of the information to criminally investigate or prosecute any alcohol or drug abuse patient.[facility]In the event this information is protected by the Federal Confidentiality of Alcohol and Drug Abuse Patient Records regulations: The Federal rules restrict any use of the information to criminally investigate or prosecute any alcohol or drug abuse patient.[facility] HospitalIn the event this information is protected by the Federal Confidentiality of Alcohol and Drug Abuse Patient Records regulations: The Federal rules restrict any use of the information to criminally investigate or prosecute any alcohol or drug abuse patient.[facility] HospitalIn the event this information is protected by the Federal Confidentiality of Alcohol and Drug Abuse Patient Records regulations: The Federal rules restrict any use of the information to criminally investigate or prosecute any alcohol or drug abuse patient.[facility] HospitalIn the event this information is protected by the Federal Confidentiality of Alcohol and Drug Abuse Patient Records regulations: The Federal rules restrict any use of the information to criminally investigate or prosecute any alcohol or drug abuse patient.[facility] HospitalIn the event this information is protected by the Federal Confidentiality of Alcohol and Drug Abuse Patient Records regulations: The Federal rules restrict any use of the information to criminally investigate or prosecute any alcohol or drug abuse patient.[facility] HospitalIn the event this information is protected by the Federal Confidentiality of Alcohol and Drug Abuse Patient Records regulations: The Federal rules restrict any use of the information to criminally investigate or prosecute any alcohol or drug abuse patient.[facility] HospitalIn the event this information is protected by the Federal Confidentiality of Alcohol and Drug Abuse Patient Records regulations: The Federal rules restrict any use of the information to criminally investigate or prosecute any alcohol or drug abuse patient.[facility]In the event this information is protected by the Federal Confidentiality of Alcohol and Drug Abuse Patient Records regulations: The Federal rules restrict any use of the information to criminally investigate or prosecute any alcohol or drug abuse patient.[facility]In the event this information is protected by the Federal Confidentiality of Alcohol and Drug Abuse Patient Records regulations: The Federal rules restrict any use of the information to criminally investigate or prosecute any alcohol or drug abuse patient.[facility] HospitalIn the event this information is protected by the Federal Confidentiality of Alcohol and Drug Abuse Patient Records regulations: The Federal rules restrict any use of the information to criminally investigate or prosecute any alcohol or drug abuse patient.[facility] HospitalIn the event this information is protected by the Federal Confidentiality of Alcohol and Drug Abuse Patient Records regulations: The Federal rules restrict any use of the information to criminally investigate or prosecute any alcohol or drug abuse patient.[facility] HospitalIn the event this information is protected by the Federal Confidentiality of Alcohol and Drug Abuse Patient Records regulations: The Federal rules restrict any use of the information to criminally investigate or prosecute any alcohol or drug abuse patient.[facility] HospitalIn the event this information is protected by the Federal Confidentiality of Alcohol and Drug Abuse Patient Records regulations: The Federal rules restrict any use of the information to criminally investigate or prosecute any alcohol or drug abuse patient.[facility] HospitalIn the event this information is protected by the Federal Confidentiality of Alcohol and Drug Abuse Patient Records regulations: The Federal rules restrict any use of the information to criminally investigate or prosecute any alcohol or drug abuse patient.[facility] HospitalIn the event this information is protected by the Federal Confidentiality of Alcohol and Drug Abuse Patient Records regulations: The Federal rules restrict any use of the information to criminally investigate or prosecute any alcohol or drug abuse patient.[facility] HospitalIn the event this information is protected by the Federal Confidentiality of Alcohol and Drug Abuse Patient Records regulations: The Federal rules restrict any use of the information to criminally investigate or prosecute any alcohol or drug abuse patient.[facility] HospitalIn the event this information is protected by the Federal Confidentiality of Alcohol and Drug Abuse Patient Records regulations: The Federal rules restrict any use of the information to criminally investigate or prosecute any alcohol or drug abuse patient.[facility] HospitalIn the event this information is protected by the Federal Confidentiality of Alcohol and Drug Abuse Patient Records regulations: The Federal rules restrict any use of the information to criminally investigate or prosecute any alcohol or drug abuse patient.[facility] HospitalIn the event this information is protected by the Federal Confidentiality of Alcohol and Drug Abuse Patient Records regulations: The Federal rules restrict any use of the information to criminally investigate or prosecute any alcohol or drug abuse patient.[facility] HospitalIn the event this information is protected by the Federal Confidentiality of Alcohol and Drug Abuse Patient Records regulations: The Federal rules restrict any use of the information to criminally investigate or prosecute any alcohol or drug abuse patient.[facility] HospitalIn the event this information is protected by the Federal Confidentiality of Alcohol and Drug Abuse Patient Records regulations: The Federal rules restrict any use of the information to criminally investigate or prosecute any alcohol or drug abuse patient.[facility] HospitalIn the event this information is protected by the Federal Confidentiality of Alcohol and Drug Abuse Patient Records regulations: The Federal rules restrict any use of the information to criminally investigate or prosecute any alcohol or drug abuse patient.[facility] HospitalIn the event this information is protected by the Federal Confidentiality of Alcohol and Drug Abuse Patient Records regulations: The Federal rules restrict any use of the information to criminally investigate or prosecute any alcohol or drug abuse patient.[facility] HospitalIn the event this information is protected by the Federal Confidentiality of Alcohol and Drug Abuse Patient Records regulations: The Federal rules restrict any use of the information to criminally investigate or prosecute any alcohol or drug abuse patient.[facility] HospitalIn the event this information is protected by the Federal Confidentiality of Alcohol and Drug Abuse Patient Records regulations: The Federal rules restrict any use of the information to criminally investigate or prosecute any alcohol or drug abuse patient.[facility] HospitalIn the event this information is protected by the Federal Confidentiality of Alcohol and Drug Abuse Patient Records regulations: The Federal rules restrict any use of the information to criminally investigate or prosecute any alcohol or drug abuse patient.[facility] HospitalIn the event this information is protected by the Federal Confidentiality of Alcohol and Drug Abuse Patient Records regulations: The Federal rules restrict any use of the information to criminally investigate or prosecute any alcohol or drug abuse patient.[facility] HospitalIn the event this information is protected by the Federal Confidentiality of Alcohol and Drug Abuse Patient Records regulations: The Federal rules restrict any use of the information to criminally investigate or prosecute any alcohol or drug abuse patient.[facility] HospitalIn the event this information is protected by the Federal Confidentiality of Alcohol and Drug Abuse Patient Records regulations: The Federal rules restrict any use of the information to criminally investigate or prosecute any alcohol or drug abuse patient.[facility] HospitalIn the event this information is protected by the Federal Confidentiality of Alcohol and Drug Abuse Patient Records regulations: The Federal rules restrict any use of the information to criminally investigate or prosecute any alcohol or drug abuse patient.[facility] HospitalIn the event this information is protected by the Federal Confidentiality of Alcohol and Drug Abuse Patient Records regulations: The Federal rules restrict any use of the information to criminally investigate or prosecute any alcohol or drug abuse patient.[facility] HospitalIn the event this information is protected by the Federal Confidentiality of Alcohol and Drug Abuse Patient Records regulations: The Federal rules restrict any use of the information to criminally investigate or prosecute any alcohol or drug abuse patient.[facility] HospitalIn the event this information is protected by the Federal Confidentiality of Alcohol and Drug Abuse Patient Records regulations: The Federal rules restrict any use of the information to criminally investigate or prosecute any alcohol or drug abuse patient.[facility] HospitalIn the event this information is protected by the Federal Confidentiality of Alcohol and Drug Abuse Patient Records regulations: The Federal rules restrict any use of the information to criminally investigate or prosecute any alcohol or drug abuse patient.[facility] HospitalIn the event this information is protected by the Federal Confidentiality of Alcohol and Drug Abuse Patient Records regulations: The Federal rules restrict any use of the information to criminally investigate or prosecute any alcohol or drug abuse patient.[facility] HospitalIn the event this information is protected by the Federal Confidentiality of Alcohol and Drug Abuse Patient Records regulations: The Federal rules restrict any use of the information to criminally investigate or prosecute any alcohol or drug abuse patient.[facility] HospitalIn the event this information is protected by the Federal Confidentiality of Alcohol and Drug Abuse Patient Records regulations: The Federal rules restrict any use of the information to criminally investigate or prosecute any alcohol or drug abuse patient.[facility] HospitalIn the event this information is protected by the Federal Confidentiality of Alcohol and Drug Abuse Patient Records regulations: The Federal rules restrict any use of the information to criminally investigate or prosecute any alcohol or drug abuse patient.[facility] HospitalIn the event this information is protected by the Federal Confidentiality of Alcohol and Drug Abuse Patient Records regulations: The Federal rules restrict any use of the information to criminally investigate or prosecute any alcohol or drug abuse patient.[facility] HospitalIn the event this information is protected by the Federal Confidentiality of Alcohol and Drug Abuse Patient Records regulations: The Federal rules restrict any use of the information to criminally investigate or prosecute any alcohol or drug abuse patient.[facility] HospitalIn the event this information is protected by the Federal Confidentiality of Alcohol and Drug Abuse Patient Records regulations: The Federal rules restrict any use of the information to criminally investigate or prosecute any alcohol or drug abuse patient.[facility] HospitalIn the event this information is protected by the Federal Confidentiality of Alcohol and Drug Abuse Patient Records regulations: The Federal rules restrict any use of the information to criminally investigate or prosecute any alcohol or drug abuse patient.[facility] HospitalIn the event this information is protected by the Federal Confidentiality of Alcohol and Drug Abuse Patient Records regulations: The Federal rules restrict any use of the information to criminally investigate or prosecute any alcohol or drug abuse patient.[facility] HospitalIn the event this information is protected by the Federal Confidentiality of Alcohol and Drug Abuse Patient Records regulations: The Federal rules restrict any use of the information to criminally investigate or prosecute any alcohol or drug abuse patient.[facility] HospitalIn the event this information is protected by the Federal Confidentiality of Alcohol and Drug Abuse Patient Records regulations: The Federal rules restrict any use of the information to criminally investigate or prosecute any alcohol or drug abuse patient.[facility] HospitalIn the event this information is protected by the Federal Confidentiality of Alcohol and Drug Abuse Patient Records regulations: The Federal rules restrict any use of the information to criminally investigate or prosecute any alcohol or drug abuse patient.[facility] HospitalIn the event this information is protected by the Federal Confidentiality of Alcohol and Drug Abuse Patient Records regulations: The Federal rules restrict any use of the information to criminally investigate or prosecute any alcohol or drug abuse patient.[facility] HospitalIn the event this information is protected by the Federal Confidentiality of Alcohol and Drug Abuse Patient Records regulations: The Federal rules restrict any use of the information to criminally investigate or prosecute any alcohol or drug abuse patient.[facility] HospitalIn the event this information is protected by the Federal Confidentiality of Alcohol and Drug Abuse Patient Records regulations: The Federal rules restrict any use of the information to criminally investigate or prosecute any alcohol or drug abuse patient.[facility] HospitalIn the event this information is protected by the Federal Confidentiality of Alcohol and Drug Abuse Patient Records regulations: The Federal rules restrict any use of the information to criminally investigate or prosecute any alcohol or drug abuse patient.[facility] HospitalIn the event this information is protected by the Federal Confidentiality of Alcohol and Drug Abuse Patient Records regulations: The Federal rules restrict any use of the information to criminally investigate or prosecute any alcohol or drug abuse patient.[facility] HospitalIn the event this information is protected by the Federal Confidentiality of Alcohol and Drug Abuse Patient Records regulations: The Federal rules restrict any use of the information to criminally investigate or prosecute any alcohol or drug abuse patient.[facility] HospitalIn the event this information is protected by the Federal Confidentiality of Alcohol and Drug Abuse Patient Records regulations: The Federal rules restrict any use of the information to criminally investigate or prosecute any alcohol or drug abuse patient.[facility] HospitalIn the event this information is protected by the Federal Confidentiality of Alcohol and Drug Abuse Patient Records regulations: The Federal rules restrict any use of the information to criminally investigate or prosecute any alcohol or drug abuse patient.[facility] HospitalIn the event this information is protected by the Federal Confidentiality of Alcohol and Drug Abuse Patient Records regulations: The Federal rules restrict any use of the information to criminally investigate or prosecute any alcohol or drug abuse patient.[facility] HospitalIn the event this information is protected by the Federal Confidentiality of Alcohol and Drug Abuse Patient Records regulations: The Federal rules restrict any use of the information to criminally investigate or prosecute any alcohol or drug abuse patient.[facility] HospitalIn the event this information is protected by the Federal Confidentiality of Alcohol and Drug Abuse Patient Records regulations: The Federal rules restrict any use of the information to criminally investigate or prosecute any alcohol or drug abuse patient.[facility] HospitalIn the event this information is protected by the Federal Confidentiality of Alcohol and Drug Abuse Patient Records regulations: The Federal rules restrict any use of the information to criminally investigate or prosecute any alcohol or drug abuse patient.[facility] HospitalIn the event this information is protected by the Federal Confidentiality of Alcohol and Drug Abuse Patient Records regulations: The Federal rules restrict any use of the information to criminally investigate or prosecute any alcohol or drug abuse patient.[facility] HospitalIn the event this information is protected by the Federal Confidentiality of Alcohol and Drug Abuse Patient Records regulations: The Federal rules restrict any use of the information to criminally investigate or prosecute any alcohol or drug abuse patient.[facility] HospitalIn the event this information is protected by the Federal Confidentiality of Alcohol and Drug Abuse Patient Records regulations: The Federal rules restrict any use of the information to criminally investigate or prosecute any alcohol or drug abuse patient.[facility] HospitalIn the event this information is protected by the Federal Confidentiality of Alcohol and Drug Abuse Patient Records regulations: The Federal rules restrict any use of the information to criminally investigate or prosecute any alcohol or drug abuse patient.[facility] HospitalIn the event this information is protected by the Federal Confidentiality of Alcohol and Drug Abuse Patient Records regulations: The Federal rules restrict any use of the information to criminally investigate or prosecute any alcohol or drug abuse patient.[facility] HospitalIn the event this information is protected by the Federal Confidentiality of Alcohol and Drug Abuse Patient Records regulations: The Federal rules restrict any use of the information to criminally investigate or prosecute any alcohol or drug abuse patient.[facility] HospitalIn the event this information is protected by the Federal Confidentiality of Alcohol and Drug Abuse Patient Records regulations: The Federal rules restrict any use of the information to criminally investigate or prosecute any alcohol or drug abuse patient.[facility] HospitalIn the event this information is protected by the Federal Confidentiality of Alcohol and Drug Abuse Patient Records regulations: The Federal rules restrict any use of the information to criminally investigate or prosecute any alcohol or drug abuse patient.[facility] HospitalIn the event this information is protected by the Federal Confidentiality of Alcohol and Drug Abuse Patient Records regulations: The Federal rules restrict any use of the information to criminally investigate or prosecute any alcohol or drug abuse patient.[facility] HospitalIn the event this information is protected by the Federal Confidentiality of Alcohol and Drug Abuse Patient Records regulations: The Federal rules restrict any use of the information to criminally investigate or prosecute any alcohol or drug abuse patient.[facility] HospitalIn the event this information is protected by the Federal Confidentiality of Alcohol and Drug Abuse Patient Records regulations: The Federal rules restrict any use of the information to criminally investigate or prosecute any alcohol or drug abuse patient.[facility] HospitalIn the event this information is protected by the Federal Confidentiality of Alcohol and Drug Abuse Patient Records regulations: The Federal rules restrict any use of the information to criminally investigate or prosecute any alcohol or drug abuse patient.[facility] HospitalIn the event this information is protected by the Federal Confidentiality of Alcohol and Drug Abuse Patient Records regulations: The Federal rules restrict any use of the information to criminally investigate or prosecute any alcohol or drug abuse patient.[facility] HospitalIn the event this information is protected by the Federal Confidentiality of Alcohol and Drug Abuse Patient Records regulations: The Federal rules restrict any use of the information to criminally investigate or prosecute any alcohol or drug abuse patient.[facility] HospitalIn the event this information is protected by the Federal Confidentiality of Alcohol and Drug Abuse Patient Records regulations: The Federal rules restrict any use of the information to criminally investigate or prosecute any alcohol or drug abuse patient.[facility] HospitalIn the event this information is protected by the Federal Confidentiality of Alcohol and Drug Abuse Patient Records regulations: The Federal rules restrict any use of the information to criminally investigate or prosecute any alcohol or drug abuse patient.[facility] HospitalIn the event this information is protected by the Federal Confidentiality of Alcohol and Drug Abuse Patient Records regulations: The Federal rules restrict any use of the information to criminally investigate or prosecute any alcohol or drug abuse patient.[facility] HospitalIn the event this information is protected by the Federal Confidentiality of Alcohol and Drug Abuse Patient Records regulations: The Federal rules restrict any use of the information to criminally investigate or prosecute any alcohol or drug abuse patient.[facility] HospitalIn the event this information is protected by the Federal Confidentiality of Alcohol and Drug Abuse Patient Records regulations: The Federal rules restrict any use of the information to criminally investigate or prosecute any alcohol or drug abuse patient.[facility] HospitalIn the event this information is protected by the Federal Confidentiality of Alcohol and Drug Abuse Patient Records regulations: The Federal rules restrict any use of the information to criminally investigate or prosecute any alcohol or drug abuse patient.[facility] HospitalIn the event this information is protected by the Federal Confidentiality of Alcohol and Drug Abuse Patient Records regulations: The Federal rules restrict any use of the information to criminally investigate or prosecute any alcohol or drug abuse patient.[facility] HospitalIn the event this information is protected by the Federal Confidentiality of Alcohol and Drug Abuse Patient Records regulations: The Federal rules restrict any use of the information to criminally investigate or prosecute any alcohol or drug abuse patient.[facility] HospitalIn the event this information is protected by the Federal Confidentiality of Alcohol and Drug Abuse Patient Records regulations: The Federal rules restrict any use of the information to criminally investigate or prosecute any alcohol or drug abuse patient.[facility] HospitalIn the event this information is protected by the Federal Confidentiality of Alcohol and Drug Abuse Patient Records regulations: The Federal rules restrict any use of the information to criminally investigate or prosecute any alcohol or drug abuse patient.[facility] HospitalIn the event this information is protected by the Federal Confidentiality of Alcohol and Drug Abuse Patient Records regulations: The Federal rules restrict any use of the information to criminally investigate or prosecute any alcohol or drug abuse patient.[facility] HospitalIn the event this information is protected by the Federal Confidentiality of Alcohol and Drug Abuse Patient Records regulations: The Federal rules restrict any use of the information to criminally investigate or prosecute any alcohol or drug abuse patient.[facility] HospitalIn the event this information is protected by the Federal Confidentiality of Alcohol and Drug Abuse Patient Records regulations: The Federal rules restrict any use of the information to criminally investigate or prosecute any alcohol or drug abuse patient.[facility] HospitalIn the event this information is protected by the Federal Confidentiality of Alcohol and Drug Abuse Patient Records regulations: The Federal rules restrict any use of the information to criminally investigate or prosecute any alcohol or drug abuse patient.[facility] HospitalIn the event this information is protected by the Federal Confidentiality of Alcohol and Drug Abuse Patient Records regulations: The Federal rules restrict any use of the information to criminally investigate or prosecute any alcohol or drug abuse patient.[facility] HospitalIn the event this information is protected by the Federal Confidentiality of Alcohol and Drug Abuse Patient Records regulations: The Federal rules restrict any use of the information to criminally investigate or prosecute any alcohol or drug abuse patient.[facility] HospitalIn the event this information is protected by the Federal Confidentiality of Alcohol and Drug Abuse Patient Records regulations: The Federal rules restrict any use of the information to criminally investigate or prosecute any alcohol or drug abuse patient.[facility] HospitalIn the event this information is protected by the Federal Confidentiality of Alcohol and Drug Abuse Patient Records regulations: The Federal rules restrict any use of the information to criminally investigate or prosecute any alcohol or drug abuse patient.[facility] HospitalIn the event this information is protected by the Federal Confidentiality of Alcohol and Drug Abuse Patient Records regulations: The Federal rules restrict any use of the information to criminally investigate or prosecute any alcohol or drug abuse patient.[facility] HospitalIn the event this information is protected by the Federal Confidentiality of Alcohol and Drug Abuse Patient Records regulations: The Federal rules restrict any use of the information to criminally investigate or prosecute any alcohol or drug abuse patient.[facility] HospitalIn the event this information is protected by the Federal Confidentiality of Alcohol and Drug Abuse Patient Records regulations: The Federal rules restrict any use of the information to criminally investigate or prosecute any alcohol or drug abuse patient.[facility] HospitalIn the event this information is protected by the Federal Confidentiality of Alcohol and Drug Abuse Patient Records regulations: The Federal rules restrict any use of the information to criminally investigate or prosecute any alcohol or drug abuse patient.[facility] HospitalIn the event this information is protected by the Federal Confidentiality of Alcohol and Drug Abuse Patient Records regulations: The Federal rules restrict any use of the information to criminally investigate or prosecute any alcohol or drug abuse patient.[facility] HospitalIn the event this information is protected by the Federal Confidentiality of Alcohol and Drug Abuse Patient Records regulations: The Federal rules restrict any use of the information to criminally investigate or prosecute any alcohol or drug abuse patient.[facility] HospitalIn the event this information is protected by the Federal Confidentiality of Alcohol and Drug Abuse Patient Records regulations: The Federal rules restrict any use of the information to criminally investigate or prosecute any alcohol or drug abuse patient.[facility] HospitalIn the event this information is protected by the Federal Confidentiality of Alcohol and Drug Abuse Patient Records regulations: The Federal rules restrict any use of the information to criminally investigate or prosecute any alcohol or drug abuse patient.[facility] HospitalIn the event this information is protected by the Federal Confidentiality of Alcohol and Drug Abuse Patient Records regulations: The Federal rules restrict any use of the information to criminally investigate or prosecute any alcohol or drug abuse patient.[facility] HospitalIn the event this information is protected by the Federal Confidentiality of Alcohol and Drug Abuse Patient Records regulations: The Federal rules restrict any use of the information to criminally investigate or prosecute any alcohol or drug abuse patient.[facility] HospitalIn the event this information is protected by the Federal Confidentiality of Alcohol and Drug Abuse Patient Records regulations: The Federal rules restrict any use of the information to criminally investigate or prosecute any alcohol or drug abuse patient.[facility] HospitalIn the event this information is protected by the Federal Confidentiality of Alcohol and Drug Abuse Patient Records regulations: The Federal rules restrict any use of the information to criminally investigate or prosecute any alcohol or drug abuse patient.[facility] HospitalIn the event this information is protected by the Federal Confidentiality of Alcohol and Drug Abuse Patient Records regulations: The Federal rules restrict any use of the information to criminally investigate or prosecute any alcohol or drug abuse patient.[facility] HospitalIn the event this information is protected by the Federal Confidentiality of Alcohol and Drug Abuse Patient Records regulations: The Federal rules restrict any use of the information to criminally investigate or prosecute any alcohol or drug abuse patient.[facility] HospitalIn the event this information is protected by the Federal Confidentiality of Alcohol and Drug Abuse Patient Records regulations: The Federal rules restrict any use of the information to criminally investigate or prosecute any alcohol or drug abuse patient.[facility] HospitalIn the event this information is protected by the Federal Confidentiality of Alcohol and Drug Abuse Patient Records regulations: The Federal rules restrict any use of the information to criminally investigate or prosecute any alcohol or drug abuse patient.[facility] HospitalIn the event this information is protected by the Federal Confidentiality of Alcohol and Drug Abuse Patient Records regulations: The Federal rules restrict any use of the information to criminally investigate or prosecute any alcohol or drug abuse patient.[facility] HospitalIn the event this information is protected by the Federal Confidentiality of Alcohol and Drug Abuse Patient Records regulations: The Federal rules restrict any use of the information to criminally investigate or prosecute any alcohol or drug abuse patient.[facility] HospitalIn the event this information is protected by the Federal Confidentiality of Alcohol and Drug Abuse Patient Records regulations: The Federal rules restrict any use of the information to criminally investigate or prosecute any alcohol or drug abuse patient.[facility] HospitalIn the event this information is protected by the Federal Confidentiality of Alcohol and Drug Abuse Patient Records regulations: The Federal rules restrict any use of the information to criminally investigate or prosecute any alcohol or drug abuse patient.[facility] HospitalIn the event this information is protected by the Federal Confidentiality of Alcohol and Drug Abuse Patient Records regulations: The Federal rules restrict any use of the information to criminally investigate or prosecute any alcohol or drug abuse patient.[facility] HospitalIn the event this information is protected by the Federal Confidentiality of Alcohol and Drug Abuse Patient Records regulations: The Federal rules restrict any use of the information to criminally investigate or prosecute any alcohol or drug abuse patient.[facility] HospitalIn the event this information is protected by the Federal Confidentiality of Alcohol and Drug Abuse Patient Records regulations: The Federal rules restrict any use of the information to criminally investigate or prosecute any alcohol or drug abuse patient.[facility] HospitalIn the event this information is protected by the Federal Confidentiality of Alcohol and Drug Abuse Patient Records regulations: The Federal rules restrict any use of the information to criminally investigate or prosecute any alcohol or drug abuse patient.[facility] HospitalIn the event this information is protected by the Federal Confidentiality of Alcohol and Drug Abuse Patient Records regulations: The Federal rules restrict any use of the information to criminally investigate or prosecute any alcohol or drug abuse patient.[facility] HospitalIn the event this information is protected by the Federal Confidentiality of Alcohol and Drug Abuse Patient Records regulations: The Federal rules restrict any use of the information to criminally investigate or prosecute any alcohol or drug abuse patient.[facility]In the event this information is protected by the Federal Confidentiality of Alcohol and Drug Abuse Patient Records regulations: The Federal rules restrict any use of the information to criminally investigate or prosecute any alcohol or drug abuse patient.[facility]In the event this information is protected by the Federal Confidentiality of Alcohol and Drug Abuse Patient Records regulations: The Federal rules restrict any use of the information to criminally investigate or prosecute any alcohol or drug abuse patient.[facility]In the event this information is protected by the Federal Confidentiality of Alcohol and Drug Abuse Patient Records regulations: The Federal rules restrict any use of the information to criminally investigate or prosecute any alcohol or drug abuse patient.[facility]In the event this information is protected by the Federal Confidentiality of Alcohol and Drug Abuse Patient Records regulations: The Federal rules restrict any use of the information to criminally investigate or prosecute any alcohol or drug abuse patient.[facility] HospitalIn the event this information is protected by the Federal Confidentiality of Alcohol and Drug Abuse Patient Records regulations: The Federal rules restrict any use of the information to criminally investigate or prosecute any alcohol or drug abuse patient.[facility] HospitalIn the event this information is protected by the Federal Confidentiality of Alcohol and Drug Abuse Patient Records regulations: The Federal rules restrict any use of the information to criminally investigate or prosecute any alcohol or drug abuse patient.[facility]In the event this information is protected by the Federal Confidentiality of Alcohol and Drug Abuse Patient Records regulations: The Federal rules restrict any use of the information to criminally investigate or prosecute any alcohol or drug abuse patient.[facility] HospitalIn the event this information is protected by the Federal Confidentiality of Alcohol and Drug Abuse Patient Records regulations: The Federal rules restrict any use of the information to criminally investigate or prosecute any alcohol or drug abuse patient.[facility] HospitalIn the event this information is protected by the Federal Confidentiality of Alcohol and Drug Abuse Patient Records regulations: The Federal rules restrict any use of the information to criminally investigate or prosecute any alcohol or drug abuse patient.[facility] HospitalIn the event this information is protected by the Federal Confidentiality of Alcohol and Drug Abuse Patient Records regulations: The Federal rules restrict any use of the information to criminally investigate or prosecute any alcohol or drug abuse patient.[facility] HospitalIn the event this information is protected by the Federal Confidentiality of Alcohol and Drug Abuse Patient Records regulations: The Federal rules restrict any use of the information to criminally investigate or prosecute any alcohol or drug abuse patient.[facility] HospitalIn the event this information is protected by the Federal Confidentiality of Alcohol and Drug Abuse Patient Records regulations: The Federal rules restrict any use of the information to criminally investigate or prosecute any alcohol or drug abuse patient.[facility] HospitalIn the event this information is protected by the Federal Confidentiality of Alcohol and Drug Abuse Patient Records regulations: The Federal rules restrict any use of the information to criminally investigate or prosecute any alcohol or drug abuse patient.[facility] HospitalIn the event this information is protected by the Federal Confidentiality of Alcohol and Drug Abuse Patient Records regulations: The Federal rules restrict any use of the information to criminally investigate or prosecute any alcohol or drug abuse patient.[facility] HospitalIn the event this information is protected by the Federal Confidentiality of Alcohol and Drug Abuse Patient Records regulations: The Federal rules restrict any use of the information to criminally investigate or prosecute any alcohol or drug abuse patient.[facility] HospitalIn the event this information is protected by the Federal Confidentiality of Alcohol and Drug Abuse Patient Records regulations: The Federal rules restrict any use of the information to criminally investigate or prosecute any alcohol or drug abuse patient.[facility] HospitalIn the event this information is protected by the Federal Confidentiality of Alcohol and Drug Abuse Patient Records regulations: The Federal rules restrict any use of the information to criminally investigate or prosecute any alcohol or drug abuse patient.[facility] HospitalIn the event this information is protected by the Federal Confidentiality of Alcohol and Drug Abuse Patient Records regulations: The Federal rules restrict any use of the information to criminally investigate or prosecute any alcohol or drug abuse patient.[facility] HospitalIn the event this information is protected by the Federal Confidentiality of Alcohol and Drug Abuse Patient Records regulations: The Federal rules restrict any use of the information to criminally investigate or prosecute any alcohol or drug abuse patient.[facility] HospitalIn the event this information is protected by the Federal Confidentiality of Alcohol and Drug Abuse Patient Records regulations: The Federal rules restrict any use of the information to criminally investigate or prosecute any alcohol or drug abuse patient.[facility] HospitalIn the event this information is protected by the Federal Confidentiality of Alcohol and Drug Abuse Patient Records regulations: The Federal rules restrict any use of the information to criminally investigate or prosecute any alcohol or drug abuse patient.[facility] HospitalIn the event this information is protected by the Federal Confidentiality of Alcohol and Drug Abuse Patient Records regulations: The Federal rules restrict any use of the information to criminally investigate or prosecute any alcohol or drug abuse patient.[facility] HospitalIn the event this information is protected by the Federal Confidentiality of Alcohol and Drug Abuse Patient Records regulations: The Federal rules restrict any use of the information to criminally investigate or prosecute any alcohol or drug abuse patient.[facility] HospitalIn the event this information is protected by the Federal Confidentiality of Alcohol and Drug Abuse Patient Records regulations: The Federal rules restrict any use of the information to criminally investigate or prosecute any alcohol or drug abuse patient.[facility] HospitalIn the event this information is protected by the Federal Confidentiality of Alcohol and Drug Abuse Patient Records regulations: The Federal rules restrict any use of the information to criminally investigate or prosecute any alcohol or drug abuse patient.[facility] HospitalIn the event this information is protected by the Federal Confidentiality of Alcohol and Drug Abuse Patient Records regulations: The Federal rules restrict any use of the information to criminally investigate or prosecute any alcohol or drug abuse patient.[facility] HospitalIn the event this information is protected by the Federal Confidentiality of Alcohol and Drug Abuse Patient Records regulations: The Federal rules restrict any use of the information to criminally investigate or prosecute any alcohol or drug abuse patient.[facility] HospitalIn the event this information is protected by the Federal Confidentiality of Alcohol and Drug Abuse Patient Records regulations: The Federal rules restrict any use of the information to criminally investigate or prosecute any alcohol or drug abuse patient.[facility] HospitalIn the event this information is protected by the Federal Confidentiality of Alcohol and Drug Abuse Patient Records regulations: The Federal rules restrict any use of the information to criminally investigate or prosecute any alcohol or drug abuse patient.[facility] HospitalIn the event this information is protected by the Federal Confidentiality of Alcohol and Drug Abuse Patient Records regulations: The Federal rules restrict any use of the information to criminally investigate or prosecute any alcohol or drug abuse patient.[facility] HospitalIn the event this information is protected by the Federal Confidentiality of Alcohol and Drug Abuse Patient Records regulations: The Federal rules restrict any use of the information to criminally investigate or prosecute any alcohol or drug abuse patient.[facility] HospitalIn the event this information is protected by the Federal Confidentiality of Alcohol and Drug Abuse Patient Records regulations: The Federal rules restrict any use of the information to criminally investigate or prosecute any alcohol or drug abuse patient.[facility] HospitalIn the event this information is protected by the Federal Confidentiality of Alcohol and Drug Abuse Patient Records regulations: The Federal rules restrict any use of the information to criminally investigate or prosecute any alcohol or drug abuse patient.[facility] HospitalIn the event this information is protected by the Federal Confidentiality of Alcohol and Drug Abuse Patient Records regulations: The Federal rules restrict any use of the information to criminally investigate or prosecute any alcohol or drug abuse patient.[facility] HospitalIn the event this information is protected by the Federal Confidentiality of Alcohol and Drug Abuse Patient Records regulations: The Federal rules restrict any use of the information to criminally investigate or prosecute any alcohol or drug abuse patient.[facility] HospitalIn the event this information is protected by the Federal Confidentiality of Alcohol and Drug Abuse Patient Records regulations: The Federal rules restrict any use of the information to criminally investigate or prosecute any alcohol or drug abuse patient.[facility] HospitalIn the event this information is protected by the Federal Confidentiality of Alcohol and Drug Abuse Patient Records regulations: The Federal rules restrict any use of the information to criminally investigate or prosecute any alcohol or drug abuse patient.[facility] HospitalIn the event this information is protected by the Federal Confidentiality of Alcohol and Drug Abuse Patient Records regulations: The Federal rules restrict any use of the information to criminally investigate or prosecute any alcohol or drug abuse patient.[facility] HospitalIn the event this information is protected by the Federal Confidentiality of Alcohol and Drug Abuse Patient Records regulations: The Federal rules restrict any use of the information to criminally investigate or prosecute any alcohol or drug abuse patient.[facility] HospitalIn the event this information is protected by the Federal Confidentiality of Alcohol and Drug Abuse Patient Records regulations: The Federal rules restrict any use of the information to criminally investigate or prosecute any alcohol or drug abuse patient.[facility] HospitalIn the event this information is protected by the Federal Confidentiality of Alcohol and Drug Abuse Patient Records regulations: The Federal rules restrict any use of the information to criminally investigate or prosecute any alcohol or drug abuse patient.[facility] HospitalIn the event this information is protected by the Federal Confidentiality of Alcohol and Drug Abuse Patient Records regulations: The Federal rules restrict any use of the information to criminally investigate or prosecute any alcohol or drug abuse patient.[facility] HospitalIn the event this information is protected by the Federal Confidentiality of Alcohol and Drug Abuse Patient Records regulations: The Federal rules restrict any use of the information to criminally investigate or prosecute any alcohol or drug abuse patient.[facility] HospitalIn the event this information is protected by the Federal Confidentiality of Alcohol and Drug Abuse Patient Records regulations: The Federal rules restrict any use of the information to criminally investigate or prosecute any alcohol or drug abuse patient.[facility] HospitalIn the event this information is protected by the Federal Confidentiality of Alcohol and Drug Abuse Patient Records regulations: The Federal rules restrict any use of the information to criminally investigate or prosecute any alcohol or drug abuse patient.[facility] HospitalIn the event this information is protected by the Federal Confidentiality of Alcohol and Drug Abuse Patient Records regulations: The Federal rules restrict any use of the information to criminally investigate or prosecute any alcohol or drug abuse patient.[facility] HospitalIn the event this information is protected by the Federal Confidentiality of Alcohol and Drug Abuse Patient Records regulations: The Federal rules restrict any use of the information to criminally investigate or prosecute any alcohol or drug abuse patient.[facility] HospitalIn the event this information is protected by the Federal Confidentiality of Alcohol and Drug Abuse Patient Records regulations: The Federal rules restrict any use of the information to criminally investigate or prosecute any alcohol or drug abuse patient.[facility] HospitalIn the event this information is protected by the Federal Confidentiality of Alcohol and Drug Abuse Patient Records regulations: The Federal rules restrict any use of the information to criminally investigate or prosecute any alcohol or drug abuse patient.[facility] HospitalIn the event this information is protected by the Federal Confidentiality of Alcohol and Drug Abuse Patient Records regulations: The Federal rules restrict any use of the information to criminally investigate or prosecute any alcohol or drug abuse patient.[facility] HospitalIn the event this information is protected by the Federal Confidentiality of Alcohol and Drug Abuse Patient Records regulations: The Federal rules restrict any use of the information to criminally investigate or prosecute any alcohol or drug abuse patient.[facility] HospitalIn the event this information is protected by the Federal Confidentiality of Alcohol and Drug Abuse Patient Records regulations: The Federal rules restrict any use of the information to criminally investigate or prosecute any alcohol or drug abuse patient.[facility] HospitalIn the event this information is protected by the Federal Confidentiality of Alcohol and Drug Abuse Patient Records regulations: The Federal rules restrict any use of the information to criminally investigate or prosecute any alcohol or drug abuse patient.[facility] HospitalIn the event this information is protected by the Federal Confidentiality of Alcohol and Drug Abuse Patient Records regulations: The Federal rules restrict any use of the information to criminally investigate or prosecute any alcohol or drug abuse patient.[facility] HospitalIn the event this information is protected by the Federal Confidentiality of Alcohol and Drug Abuse Patient Records regulations: The Federal rules restrict any use of the information to criminally investigate or prosecute any alcohol or drug abuse patient.[facility] HospitalIn the event this information is protected by the Federal Confidentiality of Alcohol and Drug Abuse Patient Records regulations: The Federal rules restrict any use of the information to criminally investigate or prosecute any alcohol or drug abuse patient.[facility] HospitalIn the event this information is protected by the Federal Confidentiality of Alcohol and Drug Abuse Patient Records regulations: The Federal rules restrict any use of the information to criminally investigate or prosecute any alcohol or drug abuse patient.[facility] HospitalIn the event this information is protected by the Federal Confidentiality of Alcohol and Drug Abuse Patient Records regulations: The Federal rules restrict any use of the information to criminally investigate or prosecute any alcohol or drug abuse patient.[facility] HospitalIn the event this information is protected by the Federal Confidentiality of Alcohol and Drug Abuse Patient Records regulations: The Federal rules restrict any use of the information to criminally investigate or prosecute any alcohol or drug abuse patient.[facility] HospitalIn the event this information is protected by the Federal Confidentiality of Alcohol and Drug Abuse Patient Records regulations: The Federal rules restrict any use of the information to criminally investigate or prosecute any alcohol or drug abuse patient.[facility] HospitalIn the event this information is protected by the Federal Confidentiality of Alcohol and Drug Abuse Patient Records regulations: The Federal rules restrict any use of the information to criminally investigate or prosecute any alcohol or drug abuse patient.[facility] HospitalIn the event this information is protected by the Federal Confidentiality of Alcohol and Drug Abuse Patient Records regulations: The Federal rules restrict any use of the information to criminally investigate or prosecute any alcohol or drug abuse patient.[facility] HospitalIn the event this information is protected by the Federal Confidentiality of Alcohol and Drug Abuse Patient Records regulations: The Federal rules restrict any use of the information to criminally investigate or prosecute any alcohol or drug abuse patient.[facility] HospitalIn the event this information is protected by the Federal Confidentiality of Alcohol and Drug Abuse Patient Records regulations: The Federal rules restrict any use of the information to criminally investigate or prosecute any alcohol or drug abuse patient.[facility] HospitalIn the event this information is protected by the Federal Confidentiality of Alcohol and Drug Abuse Patient Records regulations: The Federal rules restrict any use of the information to criminally investigate or prosecute any alcohol or drug abuse patient.[facility] HospitalIn the event this information is protected by the Federal Confidentiality of Alcohol and Drug Abuse Patient Records regulations: The Federal rules restrict any use of the information to criminally investigate or prosecute any alcohol or drug abuse patient.[facility] HospitalIn the event this information is protected by the Federal Confidentiality of Alcohol and Drug Abuse Patient Records regulations: The Federal rules restrict any use of the information to criminally investigate or prosecute any alcohol or drug abuse patient.[facility] HospitalIn the event this information is protected by the Federal Confidentiality of Alcohol and Drug Abuse Patient Records regulations: The Federal rules restrict any use of the information to criminally investigate or prosecute any alcohol or drug abuse patient.[facility] HospitalIn the event this information is protected by the Federal Confidentiality of Alcohol and Drug Abuse Patient Records regulations: The Federal rules restrict any use of the information to criminally investigate or prosecute any alcohol or drug abuse patient.[facility] HospitalIn the event this information is protected by the Federal Confidentiality of Alcohol and Drug Abuse Patient Records regulations: The Federal rules restrict any use of the information to criminally investigate or prosecute any alcohol or drug abuse patient.[facility] HospitalIn the event this information is protected by the Federal Confidentiality of Alcohol and Drug Abuse Patient Records regulations: The Federal rules restrict any use of the information to criminally investigate or prosecute any alcohol or drug abuse patient.[facility] HospitalIn the event this information is protected by the Federal Confidentiality of Alcohol and Drug Abuse Patient Records regulations: The Federal rules restrict any use of the information to criminally investigate or prosecute any alcohol or drug abuse patient.[facility] HospitalIn the event this information is protected by the Federal Confidentiality of Alcohol and Drug Abuse Patient Records regulations: The Federal rules restrict any use of the information to criminally investigate or prosecute any alcohol or drug abuse patient.[facility] HospitalIn the event this information is protected by the Federal Confidentiality of Alcohol and Drug Abuse Patient Records regulations: The Federal rules restrict any use of the information to criminally investigate or prosecute any alcohol or drug abuse patient.[facility] HospitalIn the event this information is protected by the Federal Confidentiality of Alcohol and Drug Abuse Patient Records regulations: The Federal rules restrict any use of the information to criminally investigate or prosecute any alcohol or drug abuse patient.[facility] HospitalIn the event this information is protected by the Federal Confidentiality of Alcohol and Drug Abuse Patient Records regulations: The Federal rules restrict any use of the information to criminally investigate or prosecute any alcohol or drug abuse patient.[facility] HospitalIn the event this information is protected by the Federal Confidentiality of Alcohol and Drug Abuse Patient Records regulations: The Federal rules restrict any use of the information to criminally investigate or prosecute any alcohol or drug abuse patient.[facility] HospitalIn the event this information is protected by the Federal Confidentiality of Alcohol and Drug Abuse Patient Records regulations: The Federal rules restrict any use of the information to criminally investigate or prosecute any alcohol or drug abuse patient.[facility] HospitalIn the event this information is protected by the Federal Confidentiality of Alcohol and Drug Abuse Patient Records regulations: The Federal rules restrict any use of the information to criminally investigate or prosecute any alcohol or drug abuse patient.[facility] HospitalIn the event this information is protected by the Federal Confidentiality of Alcohol and Drug Abuse Patient Records regulations: The Federal rules restrict any use of the information to criminally investigate or prosecute any alcohol or drug abuse patient.[facility] HospitalIn the event this information is protected by the Federal Confidentiality of Alcohol and Drug Abuse Patient Records regulations: The Federal rules restrict any use of the information to criminally investigate or prosecute any alcohol or drug abuse patient.[facility] HospitalIn the event this information is protected by the Federal Confidentiality of Alcohol and Drug Abuse Patient Records regulations: The Federal rules restrict any use of the information to criminally investigate or prosecute any alcohol or drug abuse patient.[facility] HospitalIn the event this information is protected by the Federal Confidentiality of Alcohol and Drug Abuse Patient Records regulations: The Federal rules restrict any use of the information to criminally investigate or prosecute any alcohol or drug abuse patient.[facility] HospitalIn the event this information is protected by the Federal Confidentiality of Alcohol and Drug Abuse Patient Records regulations: The Federal rules restrict any use of the information to criminally investigate or prosecute any alcohol or drug abuse patient.[facility] Hospital[facility] the event this information is protected by the Federal Confidentiality of Alcohol and Drug Abuse Patient Records regulations: The Federal rules restrict any use of the information to criminally investigate or prosecute any alcohol or drug abuse patient.[facility] HospitalIn the event this information is protected by the Federal Confidentiality of Alcohol and Drug Abuse Patient Records regulations: The Federal rules restrict any use of the information to criminally investigate or prosecute any alcohol or drug abuse patient.[facility]In the event this information is protected by the Federal Confidentiality of Alcohol and Drug Abuse Patient Records regulations: The Federal rules restrict any use of the information to criminally investigate or prosecute any alcohol or drug abuse patient.[facility] the event this information is protected by the Federal Confidentiality of Alcohol and Drug Abuse Patient Records regulations: The Federal rules restrict any use of the information to criminally investigate or prosecute any alcohol or drug abuse patient.[facility] HospitalIn the event this information is protected by the Federal Confidentiality of Alcohol and Drug Abuse Patient Records regulations: The Federal rules restrict any use of the information to criminally investigate or prosecute any alcohol or drug abuse patient.[facility] Hospital[facility] the event this information is protected by the Federal Confidentiality of Alcohol and Drug Abuse Patient Records regulations: The Federal rules restrict any use of the information to criminally investigate or prosecute any alcohol or drug abuse patient.[facility] the event this information is protected by the Federal Confidentiality of Alcohol and Drug Abuse Patient Records regulations: The Federal rules restrict any use of the information to criminally investigate or prosecute any alcohol or drug abuse patient.[facility]In the event this information is protected by the Federal Confidentiality of Alcohol and Drug Abuse Patient Records regulations: The Federal rules restrict any use of the information to criminally investigate or prosecute any alcohol or drug abuse patient.[facility] HospitalIn the event this information is protected by the Federal Confidentiality of Alcohol and Drug Abuse Patient Records regulations: The Federal rules restrict any use of the information to criminally investigate or prosecute any alcohol or drug abuse patient.[facility] Reason for Visit (unrecogniz ed section and content) Reason Comments Anticoagulation Reason Comments Post-Op Visit 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 Reason Comments [place] Specialty Diagnoses / Procedures Referred By Contac t Referred To Contact Diagnoses Cancer of peritoneum (HCC) Ovarian cancer, unspecified laterality (HCC) Ovarian cancer, bilateral (HCC) Procedures DOXORUBICIN INJ [address] [place] [address] [place] [address] L[employer] P[employer] [place] [address] [address] [place] [address] Referral ID Status Reason Start Date Expiration Date V isits Requested Visits Authorized [id number] Pending Review 06/08/2021 03/11/2022 99 99 Reason Comments Returning Patient's Call Reason Comments Blood Draw (CVAD) Referral ID Status Reason Start Date Expiration Date V isits Requested Visits Authorized [id number] Authorized 06/08/2021 03/11/2022 99 99 Reason Comments FMLA Paperwork Reason Comments Opened In Error Reason Comments Results Reason Comments INR lab request Reason Comments Follow Up Reason Comments Nutrition Counseling Specialty Diagnoses / Procedures Referred By Contac t Referred To Contact CT IMAGING Diagnoses Lung nodules Malignant neoplasm of both ovaries (HCC) Procedures CT CHEST WO IVCON DIAGNOSTIC COMPUTED TOMOGRAPHY THORAX W/O CNTRST 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, 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 SYRUP MACHINE [address] [facility] [facility] [place] [address] Ct Imaging Referral ID Status Reason Start Date Expiration Date V isits Requested Visits Authorized [id number] Closed Auto-Generate d Referral 05/17/2021 06/16/2022 1 1 Reason Onset Date Comments Refill Request 09/19/2021 Reason Onset Date Comments Refill Request 09/20/2021 Reason Comments Follow Up 3 months Reason Comments Follow Up 1 month Reason Comments Orders Reason Comments Patient Request Reason Comments B-12 Injection Reason Onset Date Comments Refill Request 01/09/2022 Reason Comments Medication Issue Reason Comments Orders protime Reason Comments F/U 3 Month Reason Comments Insurance Authorization Reason Comments Results Follow Up Reason Comments Patient Update Reason Comments F/U 3 Month Reason Comments Lab Orders Reason Comments B-12 Injection Imm/Inj Reason Comments Medication Question Reason Comments Letter Reason Onset Date Comments Refill Request 11/16/2022 Reason Onset Date Comments B-12 Injection Immunizations 12/05/2022 Flu vaccination Reason Onset Date Comments Refill Request 12/25/2022 Reason Comments Blood Draw (CVAD) Pt. Refused d/t no o rders for CA 125 lab. Notified prescribing provider Reason Comments Lab orders needed. Reason Comments Refill Request Reason Onset Date Comments Refill Request 09/10/2023 Reason Comments Orders Anticoagulation Reason Comments ER F/U [facility] 10/20 for Right h ip pain, nausea, vomiting, Er prescribed tramadol, Er notes in scanned docs. Reason Comments Internal Referrals/resources Orthopaedic Reason Comments Medication Problem Reason Onset Date Comments Refill Request 11/23/2023 Reason Onset Date Comments B-12 Injection Immunizations 12/06/2023 Flu vaccination Reason Comments Established Patient Reason Onset Date Comments Refill Request 12/24/2023 Reason Comments Patient Question Results re: urine results fr om 02/11 Reason Comments Appointment Reason Comments Orders poc protime Reason Comments F/U 3 Month Head congestion, sor e throat, cough x 2 days Reason Comments Imm/Inj Reason Comments Orders Cologuard, MRI Reason Comments abdominbal pain Care Teams (unrecognized sec tion and content) Talent Assistant Relationship Specialty Start Date End Date Melchor Washington DO [address] [place] [address] PCP - General Family Practice 05/19/14 Estela Mendez (Rn)(Hist), RN Specialty Cocoa Mill Operator Oncology 08/16/17 Rudy Ross MD Endocrinology 03/11/19 Talent Assistant Relationship Specialty Start Date End Date Melchor Washington DO [address] [place], [place] [id number] PCP - General Family Practice 05/19/14 Estela Mendez (Rn)(Hist), RN Specialty Cocoa Mill Operator Oncology 08/16/17 Rudy Ross MD Endocrinology 03/11/19 Talent Assistant Relationship Specialty Start Date End Date Melchor Washington, DO [address] [place] [address] PCP - General Family Practice 05/19/14 Estela Mendez (Rn)(Hist), RN Specialty Cocoa Mill Operator Oncology 08/16/17 Rudy Ross MD Endocrinology 03/11/19 Talent Assistant Relationship Specialty Start Date End Date Melchor Washington, DO [address] [place] [address] PCP - General Family Practice 05/19/14 Estela Mendez (Rn)(Hist), RN Specialty Cocoa Mill Operator Oncology 08/16/17 Rudy Ross MD Endocrinology 03/11/19 Talent Assistant Relationship Specialty Start Date End Date Melchor Washington, DO [address] [place] [address] PCP - General Family Practice 05/19/14 Estela Mendez (Rn)(Hist), RN Specialty Cocoa Mill Operator Oncology 08/16/17 Rudy Ross MD Endocrinology 03/11/19 Talent Assistant Relationship Specialty Start Date End Date Melchor Washington, DO [address] [place] [address] PCP - General Family Practice 05/19/14 Estela Mendez (Rn)(Hist), RN Specialty Cocoa Mill Operator Oncology 08/16/17 Rudy Ross MD Endocrinology 03/11/19 Talent Assistant Relationship Specialty Start Date End Date Melchor Washington, DO [address] [place] [address] PCP - General Family Practice 05/19/14 Estela Mendez (Rn)(Hist), RN Specialty Cocoa Mill Operator Oncology 08/16/17 Rudy Ross MD Endocrinology 03/11/19 Talent Assistant Relationship Specialty Start Date End Date Melchor Washington, DO [address] [place] [address] PCP - General Family Practice 05/19/14 Estela Mendez (Rn)(Hist), RN Specialty Cocoa Mill Operator Oncology 08/16/17 Rudy Ross MD Endocrinology 03/11/19 Talent Assistant Relationship Specialty Start Date End Date Melchor Washington, DO [address] [place] [address] PCP - General Family Practice 05/19/14 Estela Mendez (Rn)(Hist), RN Specialty Cocoa Mill Operator Oncology 08/16/17 Rudy Ross MD Endocrinology 03/11/19 Talent Assistant Relationship Specialty Start Date End Date Melchor Washington, DO [address] [place] [address] PCP - General Family Practice 05/19/14 Estela Mendez (Rn)(Hist), RN Specialty Cocoa Mill Operator Oncology 08/16/17 Rudy Ross MD Endocrinology 03/11/19 Talent Assistant Relationship Specialty Start Date End Date Melchor Washington, DO [address] [place] [address] PCP - General Family Practice 05/19/14 Estela Mendez (Rn)(Hist), RN Specialty Cocoa Mill Operator Oncology 08/16/17 Rudy Ross MD Endocrinology 03/11/19 Talent Assistant Relationship Specialty Start Date End Date Melchor Washington, DO [address] [place] [address] PCP - General Family Practice 05/19/14 Estela Mendez (Rn)(Hist), RN Specialty Cocoa Mill Operator Oncology 08/16/17 Rudy Ross MD Endocrinology 03/11/19 Talent Assistant Relationship Specialty Start Date End Date Melchor Washington, DO [address] [place] [address] PCP - General Family Practice 05/19/14 Estela Mendez (Rn)(Hist), RN Specialty Cocoa Mill Operator Oncology 08/16/17 Rudy Ross MD Endocrinology 03/11/19 Talent Assistant Relationship Specialty Start Date End Date Melchor Washington, DO [address] [place] [address] PCP - General Family Practice 05/19/14 Estela Mendez (Rn)(Hist), RN Specialty Cocoa Mill Operator Oncology 08/16/17 Rudy Ross MD Endocrinology 03/11/19 Talent Assistant Relationship Specialty Start Date End Date Melchor Washington, DO [address] [place] [address] PCP - General Family Practice 05/19/14 Estela Mendez (Rn)(Hist), RN Specialty Cocoa Mill Operator Oncology 08/16/17 Rudy Ross MD Endocrinology 03/11/19 Talent Assistant Relationship Specialty Start Date End Date Melchor Washington, DO [address] [place] [address] PCP - General Family Practice 05/19/14 Estela Mendez (Rn)(Hist), RN Specialty Cocoa Mill Operator Oncology 08/16/17 Rudy Ross MD Endocrinology 03/11/19 Talent Assistant Relationship Specialty Start Date End Date Melchor Washington, DO [address] [place] [address] PCP - General Family Practice 05/19/14 Estela Mendez (Rn)(Hist), RN Specialty Cocoa Mill Operator Oncology 08/16/17 Rudy Ross MD Endocrinology 03/11/19 Talent Assistant Relationship Specialty Start Date End Date Melchor Washington, DO [address] [place] [address] PCP - General Family Practice 05/19/14 Estela Mendez (Rn)(Hist), RN Specialty Cocoa Mill Operator Oncology 08/16/17 Rudy Ross MD Endocrinology 03/11/19 Talent Assistant Relationship Specialty Start Date End Date Melchor Washington, DO [address] [facility] [place] [address] PCP - General Family Practice 05/19/14 Estela Mendez (Rn)(Hist), RN Specialty Cocoa Mill Operator Oncology 08/16/17 Rudy Ross MD Endocrinology 03/11/19 Talent Assistant Relationship Specialty Start Date End Date Melchor Washington, DO [address] [place] [address] PCP - General Family Practice 05/19/14 Estela Mendez (Rn)(Hist), RN Specialty Cocoa Mill Operator Oncology 08/16/17 Rudy Ross MD Endocrinology 03/11/19 Talent Assistant Relationship Specialty Start Date End Date Melchor Washington, DO [address] [place] [address] PCP - General Family Practice 05/19/14 Estela Mnedez (Rn)(Hist), RN Specialty Cocoa Mill Operator Oncology 08/16/17 Rudy Ross MD Endocrinology 03/11/19 Talent Assistant Relationship Specialty Start Date End Date Melchor Washington, DO [address] [place] [address] PCP - General Family Practice 05/19/14 Estela Mendez (Rn)(Hist), RN Specialty Cocoa Mill Operator Oncology 08/16/17 Rudy Ross MD Endocrinology 03/11/19 Talent Assistant Relationship Specialty Start Date End Date Melchor Washington, DO [address] [place] [address] PCP - General Family Practice 05/19/14 Estela Mendez (Rn)(Hist), RN Specialty Cocoa Mill Operator Oncology 08/16/17 Rudy Ross MD Endocrinology 03/11/19 Talent Assistant Relationship Specialty Start Date End Date Melchor Washington, DO [address] [place] [address] PCP - General Family Practice 05/19/14 Estela Mendez (Rn)(Hist), RN Specialty Cocoa Mill Operator Oncology 08/16/17 Rudy Ross MD Endocrinology 03/11/19 Talent Assistant Relationship Specialty Start Date End Date Melchor Washington, DO [address] [place] [address] PCP - General Family Practice 05/19/14 Estela Mendez (Rn)(Hist), RN Specialty Cocoa Mill Operator Oncology 08/16/17 Rudy Ross MD Endocrinology 03/11/19 Talent Assistant Relationship Specialty Start Date End Date Melchor Washington, DO [address] [place] [address] PCP - General Family Practice 05/19/14 Estela Mendez (Rn)(Hist), RN Specialty Cocoa Mill Operator Oncology 08/16/17 Rudy Ross MD Endocrinology 03/11/19 Talent Assistant Relationship Specialty Start Date End Date Melchor Washington, DO [address] [place] [address] PCP - General Family Practice 05/19/14 Estela Mendez (Rn)(Hist), RN Specialty Cocoa Mill Operator Oncology 08/16/17 Rudy Ross MD Endocrinology 03/11/19 Talent Assistant Relationship Specialty Start Date End Date Melchor Washington, DO [address] [place] [address] PCP - General Family Medicine 05/19/14 Estela Mendez (Rn)(Hist), RN Specialty Cocoa Mill Operator Oncology 08/16/17 Rudy Ross MD Endocrinology 03/11/19 Talent Assistant Relationship Specialty Start Date End Date Melchor Washington, DO [address] [place] [address] PCP - General Family Medicine 05/19/14 Estela Mendez (Rn)(Hist), RN Specialty Cocoa Mill Operator Oncology 08/16/17 Rudy Ross MD Endocrinology 03/11/19 Talent Assistant Relationship Specialty Start Date End Date Melchor Washington, DO [address] [facility] [place] [address] PCP - General Family Medicine 05/19/14 Estela Mendez (Rn)(Hist), RN Specialty Cocoa Mill Operator Oncology 08/16/17 Rudy Ross MD Endocrinology 03/11/19 Talent Assistant Relationship Specialty Start Date End Date Melchor Washington, DO [address] [place] [address] PCP - General Family Medicine 05/19/14 Estela Mendez (Rn)(Hist), RN Specialty Cocoa Mill Operator Oncology 08/16/17 Rudy Ross MD Endocrinology 03/11/19 Talent Assistant Relationship Specialty Start Date End Date Melchor Washington, DO [address] [facility] [place] [address] PCP - General Family Medicine 05/19/14 Estela Mendez (Rn)(Hist), RN Specialty Cocoa Mill Operator Oncology 08/16/17 Rudy Ross MD Endocrinology 03/11/19 Talent Assistant Relationship Specialty Start Date End Date Melchor Washington, DO [address] [place] [address] PCP - General Family Medicine 05/19/14 Estela Mendez (Rn)(Hist), RN Specialty Cocoa Mill Operator Oncology 08/16/17 Rudy Ross MD Endocrinology 03/11/19 Talent Assistant Relationship Specialty Start Date End Date Melchor Washington, DO [address] [place] [address] PCP - General Family Medicine 05/19/14 Estela Mendez (Rn)(Hist), RN Specialty Cocoa Mill Operator Oncology 08/16/17 Rudy Ross MD Endocrinology 03/11/19 Talent Assistant Relationship Specialty Start Date End Date Melchor Washington, DO [address] [place] [address] PCP - General Family Medicine 05/19/14 Estela Mendez (Rn)(Hist), RN Specialty Cocoa Mill Operator Oncology 08/16/17 Rudy Ross MD Endocrinology 03/11/19 Talent Assistant Relationship Specialty Start Date End Date Melchor Washington, DO [address] [place] [address] PCP - General Family Medicine 05/19/14 Estela Mendez (Rn)(Hist), RN Specialty Cocoa Mill Operator Oncology 08/16/17 Rudy Ross MD Endocrinology 03/11/19 Talent Assistant Relationship Specialty Start Date End Date Melchor Washington, DO [address] [place] [address] PCP - General Family Medicine 05/19/14 Estela Mendez (Rn)(Hist), RN Specialty Cocoa Mill Operator Oncology 08/16/17 Rudy Ross MD Endocrinology 03/11/19 Talent Assistant Relationship Specialty Start Date End Date Melchor Washington, DO [address] [place] [address] PCP - General Family Medicine 05/19/14 Estela Mendez, RN Specialty Cocoa Mill Operator Oncology 08/16/17 Rudy Ross MD Endocrinology 03/11/19 Talent Assistant Relationship Specialty Start Date End Date Melchor Washington, DO [address] [place] [address] PCP - General Family Medicine 05/19/14 Estela Mendez, RN Specialty Cocoa Mill Operator Oncology 08/16/17 Rudy Ross MD Endocrinology 03/11/19 Talent Assistant Relationship Specialty Start Date End Date Melchor Washington, DO [address] [place] [address] PCP - General Family Medicine 05/19/14 Estela Mendez, RN Specialty Cocoa Mill Operator Oncology 08/16/17 Rudy Ross MD Endocrinology 03/11/19 Talent Assistant Relationship Specialty Start Date End Date Melchor Washington, DO [address] [facility] [place] [address] PCP - General Family Medicine 05/19/14 Estela Mendez, RN Specialty Cocoa Mill Operator Oncology 08/16/17 Rudy Ross MD Endocrinology 03/11/19 Talent Assistant Relationship Specialty Start Date End Date Melchor Washington, DO [address] [place] [address] PCP - General Family Medicine 05/19/14 Estela Mendez, RN Specialty Cocoa Mill Operator Oncology 08/16/17 Rudy Ross MD Endocrinology 03/11/19 Talent Assistant Relationship Specialty Start Date End Date Melchor Washington, DO [address] [facility] [place] [address] PCP - General Family Medicine 05/19/14 Estela Jimenez, RN Specialty Cocoa Mill Operator Oncology 08/16/17 Rudy Ross MD Endocrinology 03/11/19 Talent Assistant Relationship Specialty Start Date End Date Melchor Washington, DO [address] [facility] [place] [address] PCP - General Family Medicine 05/19/14 Estela Jimenez RN Specialty Cocoa Mill Operator Oncology 08/16/17 Rudy Ross MD Endocrinology 03/11/19 Talent Assistant Relationship Specialty Start Date End Date Melchor Washington, DO [address] [facility] [place] [address] PCP - General Family Medicine 05/19/14 Estela Jimenez RN Specialty Cocoa Mill Operator Oncology 08/16/17 Rudy Ross MD Endocrinology 03/11/19 Talent Assistant Relationship Specialty Start Date End Date Melchor Washington, DO [address] [facility] [place] [address] PCP - General Family Medicine 05/19/14 Estela Jimenez RN Specialty Cocoa Mill Operator Oncology 08/16/17 Rudy Ross MD Endocrinology 03/11/19 Talent Assistant Relationship Specialty Start Date End Date Melchor Washington, DO [address] [facility] [place] [address] PCP - General Family Medicine 05/19/14 Estela Jimenez RN Specialty Cocoa Mill Operator Oncology 08/16/17 Rudy Ross MD Endocrinology 03/11/19 Talent Assistant Relationship Specialty Start Date End Date Melchor Washington, DO [address] [place] [address] PCP - General Family Medicine 05/19/14 Estela Jimenez, RN Specialty Cocoa Mill Operator Oncology 08/16/17 Rudy Ross MD Endocrinology 03/11/19 Talent Assistant Relationship Specialty Start Date End Date Melchor Washington, DO [address] [place] [address] PCP - General Family Medicine 05/19/14 Estela Jimenez RN Specialty Cocoa Mill Operator Oncology 08/16/17 Rudy Ross MD Endocrinology 03/11/19 Talent Assistant Relationship Specialty Start Date End Date Melchor Washington, DO [address] [facility] [place] [address] PCP - General Family Medicine 05/19/14 Estela Jimenez RN Specialty Cocoa Mill Operator Oncology 08/16/17 Rudy Ross MD Endocrinology 03/11/19 Talent Assistant Relationship Specialty Start Date End Date Melchor Washington, DO [address] [facility] [place] [address] PCP - General Family Medicine 05/19/14 Estela Jimenez RN Specialty Cocoa Mill Operator Oncology 08/16/17 Rudy Ross MD Endocrinology 03/11/19 Talent Assistant Relationship Specialty Start Date End Date Melchor Washington, DO [address] [place] [address] PCP - General Family Medicine 05/19/14 Estela Jimenez RN Specialty Cocoa Mill Operator Oncology 08/16/17 Rudy Ross MD Endocrinology 03/11/19 Talent Assistant Relationship Specialty Start Date End Date Melchor Washington, DO [address] [facility] [place] [address] PCP - General Family Medicine 05/19/14 Estela Jimenez, RN Specialty Cocoa Mill Operator Oncology 08/16/17 Rudy Ross MD Endocrinology 03/11/19 Talent Assistant Relationship Specialty Start Date End Date Melchor Washington, DO [address] [place] [address] PCP - General Family Medicine 05/19/14 Estela Jimenez, RN Specialty Cocoa Mill Operator Oncology 08/16/17 Rudy Ross MD Endocrinology 03/11/19 Talent Assistant Relationship Specialty Start Date End Date Melchor Washington DO [address] [place] [address] PCP - General Family Medicine 05/19/14 Estela Jimenez RN Specialty Cocoa Mill Operator Oncology 08/16/17 Rudy Ross MD Endocrinology 03/11/19 Talent Assistant Relationship Specialty Start Date End Date Melchor Washington DO [address] [place] [address] PCP - General Family Medicine 05/19/14 Estela Jimenez, RN Specialty Cocoa Mill Operator Oncology 08/16/17 Rudy Ross MD Endocrinology 03/11/19 Talent Assistant Relationship Specialty Start Date End Date Melchor Washington DO [address] [place] [address] PCP - General Family Medicine 05/19/14 Estela Jimenez, RN Specialty Cocoa Mill Operator Oncology 08/16/17 Rudy Ross MD Endocrinology 03/11/19 Talent Assistant Relationship Specialty Start Date End Date Melchor Washington DO [address] [place] [address] PCP - General Family Medicine 05/19/14 Estela Jimenez RN Specialty Cocoa Mill Operator Oncology 08/16/17 Rudy Ross MD Endocrinology 03/11/19 Talent Assistant Relationship Specialty Start Date End Date Melchor Washington DO [address] [place] [address] PCP - General Family Medicine 05/19/14 Estela Jimenez RN Specialty Cocoa Mill Operator Oncology 08/16/17 Rudy Ross MD Endocrinology 03/11/19 Talent Assistant Relationship Specialty Start Date End Date Melchor Washington DO [address] [place] [address] PCP - General Family Medicine 05/19/14 Estela Jimenez RN Specialty Cocoa Mill Operator Oncology 08/16/17 Rudy Ross MD Endocrinology 03/11/19 Talent Assistant Relationship Specialty Start Date End Date Melchor Washington DO [address] [place] [address] PCP - General Family Medicine 05/19/14 Estela Jimenez, RN Specialty Cocoa Mill Operator Oncology 08/16/17 Rudy Ross MD Endocrinology 03/11/19 Talent Assistant Relationship Specialty Start Date End Date Melchor Washington DO [address] [place] [address] PCP - General Family Medicine 05/19/14 Estela Jimenez RN Specialty Cocoa Mill Operator Oncology 08/16/17 Rudy Ross MD Endocrinology 03/11/19 Talent Assistant Relationship Specialty Start Date End Date Melchor Washington DO [address] [place] [address] PCP - General Family Medicine 05/19/14 Estela Jimenez RN Specialty Cocoa Mill Operator Oncology 08/16/17 Rudy Ross MD Endocrinology 03/11/19 Talent Assistant Relationship Specialty Start Date End Date Melchor Washington DO [address] [place] [address] PCP - General Family Medicine 05/19/14 Estela Jimenez RN Specialty Cocoa Mill Operator Oncology 08/16/17 Rudy Ross MD Endocrinology 03/11/19 Talent Assistant Relationship Specialty Start Date End Date Melchor Washington DO [address] [place] [address] PCP - General Family Medicine 05/19/14 Estela Jimenez, RN Specialty Cocoa Mill Operator Oncology 08/16/17 Rudy Ross MD Endocrinology 03/11/19 Talent Assistant Relationship Specialty Start Date End Date Melchor Washington DO [address] [place] [address] PCP - General Family Medicine 05/19/14 Estela Jimenez RN Specialty Cocoa Mill Operator Oncology 08/16/17 Rudy Ross MD Endocrinology 03/11/19 Talent Assistant Relationship Specialty Start Date End Date Melchor Washington DO [address] [place] [address] PCP - General Family Medicine 05/19/14 Estela Jimenez RN Specialty Cocoa Mill Operator Oncology 08/16/17 Rudy Ross MD Endocrinology 03/11/19 Talent Assistant Relationship Specialty Start Date End Date Melchor Washington DO [address] [place] [address] PCP - General Family Medicine 05/19/14 Estela Jimenez RN Specialty Cocoa Mill Operator Oncology 08/16/17 Rudy Ross MD Endocrinology 03/11/19 Talent Assistant Relationship Specialty Start Date End Date Melchor Washington DO [address] [place] [address] PCP - General Family Medicine 05/19/14 Estela Jimenez RN Specialty Cocoa Mill Operator Oncology 08/16/17 Rudy Ross MD Endocrinology 03/11/19 Talent Assistant Relationship Specialty Start Date End Date Melchor Washington DO [address] [place] [address] PCP - General Family Medicine 05/19/14 Estela Jimenez, RN Specialty Cocoa Mill Operator Oncology 08/16/17 Rudy Ross MD Endocrinology 03/11/19 Talent Assistant Relationship Specialty Start Date End Date Melchor Washington DO [address] [place] [address] PCP - General Family Medicine 05/19/14 Estela Jimenez RN Specialty Cocoa Mill Operator Oncology 08/16/17 Rudy Ross MD Endocrinology 03/11/19 Talent Assistant Relationship Specialty Start Date End Date Melchor Washington DO [address] [place] [address] PCP - General Family Medicine 05/19/14 Estela Jimenez RN Specialty Cocoa Mill Operator Oncology 08/16/17 Rudy Ross MD Endocrinology 03/11/19 Talent Assistant Relationship Specialty Start Date End Date Melchor Washington DO [address] [place] [address] PCP - General Family Medicine 05/19/14 Estela Jimenez RN Specialty Cocoa Mill Operator Oncology 08/16/17 Rudy Ross MD Endocrinology 03/11/19 Talent Assistant Relationship Specialty Start Date End Date Melchor Washington DO [address] [place] [address] PCP - General Family Medicine 05/19/14 Estela Jimenez, RN Specialty Cocoa Mill Operator Oncology 08/16/17 Rudy Ross MD Endocrinology 03/11/19 Talent Assistant Relationship Specialty Start Date End Date Melchor Washington DO [address] [place] [address] PCP - General Family Medicine 05/19/14 Estela Jimenez RN Specialty Cocoa Mill Operator Oncology 08/16/17 Rudy Ross MD Endocrinology 03/11/19 Talent Assistant Relationship Specialty Start Date End Date Melchor Washington DO [address] [place] [address] PCP - General Family Medicine 05/19/14 Estela Jimenez RN Specialty Cocoa Mill Operator Oncology 08/16/17 Rudy Ross MD Endocrinology 03/11/19 Talent Assistant Relationship Specialty Start Date End Date Melchor Washington DO [address] [place] [address] PCP - General Family Medicine 05/19/14 Estela Jimenez RN Specialty Cocoa Mill Operator Oncology 08/16/17 Rudy Ross MD Endocrinology 03/11/19 Talent Assistant Relationship Specialty Start Date End Date Melchor Washington DO [address] [place], [place] [address] PCP - General Family Medicine 05/19/14 Estela Jimenez, RN Specialty Cocoa Mill Operator Oncology 08/16/17 Rudy Ross MD Endocrinology 03/11/19 Talent Assistant Relationship Specialty Start Date End Date Melchor Washington DO [address] [place], [place] [address] PCP - General Family Medicine 05/19/14 Estela Jimenez RN Specialty Cocoa Mill Operator Oncology 08/16/17 Rudy Ross MD Endocrinology 03/11/19 Talent Assistant Relationship Specialty Start Date End Date Melchor Washington DO [address] [place], [place] [address] PCP - General Family Medicine 05/19/14 Estela Jimenez RN Specialty Cocoa Mill Operator Oncology 08/16/17 Rudy Ross MD Endocrinology 03/11/19 Talent Assistant Relationship Specialty Start Date End Date Melchor Washington DO [address] [place], [place] [address] PCP - General Family Medicine 05/19/14 Estela Jimenez RN Specialty Cocoa Mill Operator Oncology 08/16/17 Rudy Ross MD Endocrinology 03/11/19 Talent Assistant Relationship Specialty Start Date End Date Melchor Washington DO [address] [place] [address] PCP - General Family Medicine 05/19/14 Estela Jimenez, RN Specialty Cocoa Mill Operator Oncology 08/16/17 Rudy Ross MD Endocrinology 03/11/19 Talent Assistant Relationship Specialty Start Date End Date Melchor Washington DO [address] [place] [address] PCP - General Family Medicine 05/19/14 Estela Jimenez RN Specialty Cocoa Mill Operator Oncology 08/16/17 Rudy Ross MD Endocrinology 03/11/19 Talent Assistant Relationship Specialty Start Date End Date Melchor Washington DO [address] [place] [address] PCP - General Family Medicine 05/19/14 Estela Jimenez RN Specialty Cocoa Mill Operator Oncology 08/16/17 Rudy Ross MD Endocrinology 03/11/19 Talent Assistant Relationship Specialty Start Date End Date Melchor Washington DO [address] [place] [address] PCP - General Family Medicine 05/19/14 Estela Jimenez RN Specialty Cocoa Mill Operator Oncology 08/16/17 Rudy Ross MD Endocrinology 03/11/19 Talent Assistant Relationship Specialty Start Date End Date Melchor Washington DO [address] [place] [address] PCP - General Family Medicine 05/19/14 Estela Jimenez, RN Specialty Cocoa Mill Operator Oncology 08/16/17 Rudy Ross MD Endocrinology 03/11/19 Talent Assistant Relationship Specialty Start Date End Date Melchor Washington DO [address] [place] [address] PCP - General Family Medicine 05/19/14 Estela Jimenez RN Specialty Cocoa Mill Operator Oncology 08/16/17 Rudy Ross MD Endocrinology 03/11/19 Talent Assistant Relationship Specialty Start Date End Date Melchor Washington DO [address] [place], [place] [address] PCP - General Family Medicine 05/19/14 Estela Jimenez RN Specialty Cocoa Mill Operator Oncology 08/16/17 Rudy Ross MD Endocrinology 03/11/19 Talent Assistant Relationship Specialty Start Date End Date Melchor Washington DO [address] [place] [address] PCP - General Family Medicine 05/19/14 Estela Jimenez RN Specialty Cocoa Mill Operator Oncology 08/16/17 Rudy Ross MD Endocrinology 03/11/19 Roberta Gibson, 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 SYRUP MACHINE [address] [place] [address] Plumbing Service Technician Family Medicine 02/17/24 Kapil Guillen 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 SYRUP MACHINE [address] [facility] [place] [address] [facility] 02/17/24 Talent Assistant Relationship Specialty Start Date End Date Melchor Washington DO [address] [facility] [place] [address] PCP - General Family Medicine 05/19/14 Estela Jimenez RN Specialty Cocoa Mill Operator Oncology 08/16/17 Rudy Ross MD Endocrinology 03/11/19 Roberta Gibson, 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 SYRUP MACHINE [address] [facility] [place] [address] [facility] 02/17/24 MargeKapil, 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 SYRUP MACHINE [address] [facility] [place] [address] [facility] 02/17/24 Talent Assistant Relationship Specialty Start Date End Date Melchor Washington DO [address] [facility] [place] [address] PCP - General Family Medicine 05/19/14 Estela Jimenez RN Specialty Cocoa Mill Operator Oncology 08/16/17 Rudy Ross MD Endocrinology 03/11/19 Roberta Gibson, 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 SYRUP MACHINE [address] [facility] [place] [address] [facility] 02/17/24 Kapil Guillen, 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 SYRUP MACHINE [address] [facility] [place] [address] Plumbing Service Technician Family Medicine 02/17/24 Talent Assistant Relationship Specialty Start Date End Date Melchor Washington DO [address] [place] [address] PCP - General Family Medicine 05/19/14 Estela Jimenez RN Specialty Cocoa Mill Operator Oncology 08/16/17 Rudy Ross MD Endocrinology 03/11/19 Roberta Gibson, 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 SYRUP MACHINE [address] [place] [address] [facility] 02/17/24 Kapil Guillen, 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 SYRUP MACHINE [address] [facility] [place] [address] [facility] 02/17/24 Talent Assistant Relationship Specialty Start Date End Date Melchor Washington DO [address] [place] [address] PCP - General Family Medicine 05/19/14 Estela Jimenez RN Specialty Cocoa Mill Operator Oncology 08/16/17 Rudy Ross MD Endocrinology 03/11/19 Roberta Gibson, 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 SYRUP MACHINE [address] [facility] [place] [address] [facility] Medicine 02/17/24 Kapil Guillen, 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 SYRUP MACHINE [address] [facility] [place] [address] [facility] 02/17/24 Talent Assistant Relationship Specialty Start Date End Date Melchor Washington DO [address] [facility] [place] [address] PCP - General Family Medicine 05/19/14 Estela Jimenez RN Specialty Cocoa Mill Operator Oncology 08/16/17 Rudy Ross MD Endocrinology 03/11/19 Roberta Gibson, 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 SYRUP MACHINE [address] [place] [address] [facility] 02/17/24 Kapil Guillen, 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 SYRUP MACHINE [address] [facility] [place] [address] [facility] 02/17/24 Talent Assistant Relationship Specialty Start Date End Date Melchor Washington DO [address] [place] [address] PCP - General Family Medicine 05/19/14 Estela Jimenez RN Specialty Cocoa Mill Operator Oncology 08/16/17 Rudy Ross MD Endocrinology 03/11/19 Roberta Gibson, 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 SYRUP MACHINE [address] [facility] [place] [address] [facility] 02/17/24 Kapil Guillen, 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 SYRUP MACHINE [address] [facility] [place] [address] [facility] 02/17/24 Talent Assistant Relationship Specialty Start Date End Date Melchor Washington DO [address] [facility] [place] [address] PCP - General Family Medicine 05/19/14 Estela Jimenez RN Specialty Cocoa Mill Operator Oncology 08/16/17 Rudy Ross MD Endocrinology 03/11/19 Roberta Gibson, 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 SYRUP MACHINE [address] [facility] [place] [address] Plumbing Service Technician Family Medicine 02/17/24 Kapil Guillne, 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 SYRUP MACHINE [address] [facility] [place] [address] Plumbing Service Technician [facility] 02/17/24 Talent Assistant Relationship Specialty Start Date End Date Melchor Washington DO [address] [facility] [place] [address] PCP - General Family Medicine 05/19/14 Estela Jimenez RN Specialty Cocoa Mill Operator Oncology 08/16/17 Rudy Ross MD Endocrinology 03/11/19 Roberta Gibson, 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 SYRUP MACHINE [address] [facility] [place] [address] Plumbing Service Technician Family [facility] 02/17/24 Kapil Guillen, 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 SYRUP MACHINE [address] [facility] [place] [address] Plumbing Service Technician [facility] 02/17/24 Talent Assistant Relationship Specialty Start Date End Date Melchor Washington DO [address] [facility] [place] [address] PCP - General Family Medicine 05/19/14 Estela Jimenez RN Specialty Cocoa Mill Operator Oncology 08/16/17 Rudy Ross MD Endocrinology 03/11/19 Roberta Gibson, 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 SYRUP MACHINE [address] [place] [address] Plumbing Service Technician [facility] 02/17/24 [facility] Kapil, 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 SYRUP MACHINE [address] [place] [address] [facility] 02/17/24 Talent Assistant Relationship Specialty Start Date End Date Melchor Washington DO [address] [place] [address] PCP - General Family Medicine 05/19/14 Estela Jimenez RN Specialty Cocoa Mill Operator Oncology 08/16/17 Rudy Ross MD Endocrinology 03/11/19 Roberta Gibson, 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 SYRUP MACHINE [address] [place] [address] [facility] 02/17/24 [facility], 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 SYRUP MACHINE [address] [facility] [place] [address] [facility] 02/17/24 Talent Assistant Relationship Specialty Start Date End Date Melchor Washington DO [address] [facility] [place] [address] PCP - General Family Medicine 05/19/14 Estela Jimenez, RN Specialty Cocoa Mill Operator Oncology 08/16/17 Rudy Ross MD Endocrinology 03/11/19 Kapil Guillen, 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 SYRUP MACHINE [address] [facility] [place] [address] Plumbing Service Technician Family Medicine 02/17/24 Talent Assistant Relationship Specialty Start Date End Date Melchor Washington DO [address] [place] [address] PCP - General Family Medicine 05/19/14 Estela Jimenez RN Specialty Cocoa Mill Operator Oncology 08/16/17 Rudy Ross MD Endocrinology 03/11/19 Kapil Guillen, 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 SYRUP MACHINE [address] [facility] [place] [address] Plumbing Service Technician Family Medicine 02/17/24 Talent Assistant Relationship Specialty Start Date End Date Melchor Washington DO [address] [place] [address] PCP - General Family Medicine 05/19/14 Estela Jimenez RN Specialty Cocoa Mill Operator Oncology 08/16/17 Rudy Ross MD Endocrinology 03/11/19 Kapil Guillen, 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 SYRUP MACHINE [address] [facility] [place] [address] Plumbing Service Technician Family Medicine 02/17/24 Talent Assistant Relationship Specialty Start Date End Date Melchor Washington DO [address] [place] [address] PCP - General Family Medicine 05/19/14 Estela Jimenez, RN Specialty Cocoa Mill Operator Oncology 08/16/17 Rudy Ross MD Endocrinology 03/11/19 Kapil Guillen, 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 SYRUP MACHINE [address] [place] [address] Plumbing Service Technician Family Medicine 02/17/24 Talent Assistant Relationship Specialty Start Date End Date Melchor Washington DO [address] [place] [address] PCP - General Family Medicine 05/19/14 Estela Jimenez RN Specialty Cocoa Mill Operator Oncology 08/16/17 Rudy Ross MD Endocrinology 03/11/19 Kapil Guillen, 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 SYRUP MACHINE [address] [place] [address] Plumbing Service Technician Family Medicine 02/17/24 Talent Assistant Relationship Specialty Start Date End Date Melchor Washington DO [address] [place] [address] PCP - General Family Medicine 05/19/14 Estela Jimenez RN Specialty Cocoa Mill Operator Oncology 08/16/17 Rudy Ross MD Endocrinology 03/11/19 Kapil Guillen, 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 SYRUP MACHINE [address] [place] [address] Plumbing Service Technician Family Medicine 02/17/24 Talent Assistant Relationship Specialty Start Date End Date Melchor Washington DO [address] [facility] [place] [place] [place] [address] PCP - General Family Medicine 05/19/14 Estela Jimenez, RN Specialty Cocoa Mill Operator Oncology 08/16/17 Rudy Ross MD Endocrinology 03/11/19 Kapil Guillen, 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 SYRUP MACHINE [address] [place], [place] [address] [facility] 02/17/24 Talent Assistant Relationship Specialty Start Date End Date Melchor Washington DO [address] [place], [place] [address] PCP - General Family Medicine 05/19/14 Estela Jimenez RN Specialty Cocoa Mill Operator Oncology 08/16/17 Rudy Ross MD Endocrinology 03/11/19 Roberta Gibson, 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 SYRUP MACHINE [address] [place], [place] [address] [facility] Family Medicine 02/17/24 05/30/24 Kapil Guillen, 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 SYRUP MACHINE [address] [facility], [place] [address] [facility] Medicine 02/17/24 Talent Assistant Relationship Specialty Start Date End Date Melchor Washington DO [address] [facility] [place] [place] [place] [address] PCP - General Family Medicine 05/19/14 Estela Jimenez RN Specialty Cocoa Mill Operator Oncology 08/16/17 Rudy Ross MD Endocrinology 03/11/19 Kapil Guillen, 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 SYRUP MACHINE [address] [place] [address] Plumbing Service Technician [facility] 02/17/24 Talent Assistant Relationship Specialty Start Date End Date Melchor Washington DO [address] [place], [place] [address] PCP - General Family Medicine 05/19/14 Estela Jimenez RN Specialty Cocoa Mill Operator Oncology 08/16/17 Rudy Ross MD Endocrinology 03/11/19 Kapil Guillen, 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 SYRUP MACHINE [address] [place] [address] Plumbing Service Technician Family [facility] 02/17/24 Vielka Bonilla, 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 SYRUP MACHINE [address] [place], [place] [address] Plumbing Service Technician [facility] 08/25/24 Talent Assistant Relationship Specialty Start Date End Date Melchor Washington DO [address] [place] [address] PCP - General Family Medicine 05/19/14 Estela Jimenez RN Specialty Cocoa Mill Operator Oncology 08/16/17 Rudy Ross MD Endocrinology 03/11/19 Kapil Guillen, 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 SYRUP MACHINE [address] [place] [address] [facility] 02/17/24 Vielka Bonilla, 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 SYRUP MACHINE [address] [place] [address] [facility] 08/25/24 Talent Assistant Relationship Specialty Start Date End Date Melchor Washington DO [address] [place] [address] PCP - General Family Medicine 05/19/14 Estela Jimenez RN Specialty Cocoa Mill Operator Oncology 08/16/17 Rudy Ross MD Endocrinology 03/11/19 Kapil Guillen, 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 SYRUP MACHINE [address] [place] [address] [facility] 02/17/24 Vielka Bonilla, 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 SYRUP MACHINE [facility] [place] [address] [facility] 08/25/24 Talent Assistant Relationship Specialty Start Date End Date Melchor Washington DO [address] [place] [address] PCP - General Family Medicine 05/19/14 Estela Jimenez RN Specialty Cocoa Mill Operator Oncology 08/16/17 Rudy Ross MD Endocrinology 03/11/19 Kapil Guillen, 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 SYRUP MACHINE [address] [place], [place] [address] [facility] 02/17/24 Vielka Bonilla, 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 SYRUP MACHINE [address] [place], [place] [address] [facility] 08/25/24 Talent Assistant Relationship Specialty Start Date End Date Melchor Washington DO [address] [place], [place] [address] PCP - General Family Medicine 05/19/14 Estela Jimenez RN Specialty Cocoa Mill Operator Oncology 08/16/17 Rudy Ross MD Endocrinology 03/11/19 Kapil Guillen, 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 SYRUP MACHINE [address] [place], [place] [address] [facility] 02/17/24 Vielka Bonilla, 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 SYRUP MACHINE [address] [place], [place] [address] [facility] 08/25/24 Goals (unrecognized section and content) Goals may be documented in a n alternate section Active Administered Medications - up to 3 most recent administrations Administered Medications (un recognized section and content) Medication Order MAR Action Action Date Dose Rate Site cyanocobalamin 1,000 mcg injection 1,000 mcg, INTRAMUSCULAR, DIRECTED, Starting on Sun12/26/21 at 1800, Until Discontinued, Inject 1 mL IM every 1 week x 4 weeks, then every 2 weeks x 1 month, then once a month Given 04/24/2023 9:45 AM EST 1,000 mcg Deltoid, Right Given 03/28/2023 10:31 AM EST 1,000 mcg D eltoid, Left Given 02/27/2023 9:36 AM EST 1,000 mcg De ltoid, Right Active Administered Medications - up to 3 most recent administrations Medication Order MAR Action Action Date Dose Rate Site cyanocobalamin 1,000 mcg injection 1,000 mcg, INTRAMUSCULAR, DIRECTED, Starting on 12/26/21 at 1800, Until Discontinued, Inject 1 mL IM every 1 week x 4 weeks, then every 2 weeks x 1 month, then once a month Given 05/23/2023 9:51 AM EDT 1,000 mcg Deltoid, Left Given 04/24/2023 9:45 AM EST 1,000 mcg De ltoid, Right Given 03/28/2023 10:31 AM EST 1,000 mcg D eltoid, Left Active Administered Medications - up to 3 most recent administrations Medication Order MAR Action Action Date Dose Rate Site cyanocobalamin 1,000 mcg injection 1,000 mcg, INTRAMUSCULAR, DIRECTED, Starting on 12/26/21 at 1800, Until Discontinued, Inject 1 mL IM every 1 week x 4 weeks, then every 2 weeks x 1 month, then once a month Given 06/21/2023 10:22 AM EDT 1,000 mcg Deltoid, Right Given 05/23/2023 9:51 AM EDT 1,000 mcg De ltoid, Left Given 04/24/2023 9:45 AM EST 1,000 mcg De ltoid, Right INFORMATION SOURCE (unrecogn ized section and content) DATE CREATED AUTHOR 07/08/2024 [facility] DATE CREATED AUTHOR AUTHOR'S HECTOR VÁZQUEZ 10/09/2024 [facility] FOR RECORDS PERTAINING TO PATIENTS WHO ARE OR HAVE BEEN ENROLLED IN A CHEMICAL DEPENDENCY/SUBSTANCEABUSE PROGRAM, SOME INFORMATION MAY BE OMITTED. This clinical summary was aggregated from multiple sources. Caution should be exercised in using it in the provision of clinical care. This summary normalizes information from multiple sources, and as a consequence, information in this document may materially change the coding, format and clinical context of patient data. In addition, data may be omitted in some cases. CLINICAL DECISIONS SHOULD BE BASED ON THE PRIMARY CLINICAL RECORDS. [employer] provides no warranty or guarantee of the accuracy or completeness of information in this document.
[2024-10-10 20:18] LABS: Prothrombin Time (Protime)PT. 98.0 SECONDS (11.7-14.9)
[2024-10-10 20:47] VITALS: BMI 28.6
[2024-10-10 20:48] VITALS: BP 103/67; PULSE 87; RESP 18; TEMP 36.8; O2SAT 92
[2024-10-10 21:10] VITALS: BMI 28.6
[2024-10-11] VITALS (7 sets, daily range): BP systolic 121–148; BP diastolic 34–72; PULSE 82–86; RESP 17–20; TEMP 36.4–37; O2SAT 93–99
[2024-10-11] MEDS: 0.9% Normal Saline (1000mL) 1,000 ML 125 ML IV (00:10)
[2024-10-11] MEDS: Piperacil/Tazobactam 3.375 GM in 0.9% Normal Saline (50mL MB+) 50 ML IV ×4 (00:12→21:02)
[2024-10-11] MEDS: MELATONIN 3 MG TABLET PO (00:21)
[2024-10-11] MEDS: 0.9% Saline Lock 10 ML Syringe IV ×2 (06:11→23:48)
[2024-10-11 06:33] LABS: Prothrombin Time (Protime)PT. 78.4 SECONDS (11.7-14.9)
[2024-10-11 06:45] LABS: Anion Gap 9 (5-15); BUN 23 mg/dL (4-19); BUN/Creat Ratio 21.5 RATIO (10-20); Calcium,Total 7.7 mg/dL (7.6-11.0); Carbon Dioxide 22.0 mmol/L (21.0-32.0); Chloride 108 mmol/L (98-108); Estimated Creatinine Clearance 34.52 ml/min (50-250); Glucose 145 mg/dL (70-99); Potassium 4.2 mmol/L (3.3-5.1)
[2024-10-11 07:08] LABS: Hematocrit 31.5 % (37-47); Hemoglobin 10.4 g/dL (12.0-15.0); Mean Corp Hgb Conc 33.0 g/dL (32-36); Mean Corpuscular Volume 92.1 fL (81-99); Mean Platelet Vol. 11.2 fl (6.2-12.0); Platelet Count 247 K/mm3 (150-450); RBC Distribution Width CV 16.9 % (11.6-14.6); RBC Distribution Width SD 57.7 fl (35.1-43.9); Red Blood Count 3.42 M/mm3 (4.2-5.4); White Blood Count 8.0 K/mm3 (4.4-11.0)
--- NOTE | 2024-10-11 07:37 | PN.HOSP_ITS ---
Reason for Visit Chief Complaint: Worsening abdominal pain Subjective Subjective Still occasional abdominal pain but overall feeling much better and is beginning to tolerate diet, 2 bowel movements overnight Objective Data Objective Data Vital Signs: Vital Signs Temp Pulse Resp BP Pulse Ox O2 Del Method 98.3 F 85 18 121/45 H 93 Room Air 10/11/24 06:06 10/11/24 06:06 10/11/24 06:06 10/11/24 06:06 10/11/24 06:06 10/11/24 06:06 Oxygen Delivery Method Room Air Weight: 70.6 kg Body Mass Index (BMI) 28.6 Intake & Output: Intake and Output for Last 24 Hours 10/09/24 10/10/24 10/11/24 23:59 23:59 23:59 Intake Total 100 / 100 1042.5 / 1042.5 Balance 100 / 100 1042.5 / 1042.5 Lab / Micro Data 10/11/24 05:45 10/11/24 05:45 Labs: Laboratory Results - last 24 hr 10/10/24 17:52: WBC 11.7 H, RBC 3.94 L, Hgb 11.9 L, Hct 36.6 L, MCV 92.9, MCH 30.2, MCHC 32.5, RDW Std Deviation 56.8 H, RDW Coeff of Devante 16.6 H, Plt Count 245, MPV 10.3, Immature Gran % (Auto) 0.300, Neut % (Auto) 79.3 H, Lymph % (Auto) 10.9 L, Young % (Auto) 7.0, Eos % (Auto) 2.0, Baso % (Auto) 0.5, Absolute Neuts (auto) 9.3 H, Absolute Lymphs (auto) 1.28, Nucleated RBC % 0, PT 98.0 H, I NR 12.5 H*, Sodium 134, Potassium 4.0, Chloride 100, Carbon Dioxide 21.6, Anion Gap 12, BUN 26 H, Creatinine 1.10, Est GFR (MDRD) Non-Af 50 L, BUN/Creatinine Ratio 23.8 H, Glucose 218 H, Lactic Acid 1.3, Calcium 8.2, Total Bilirubin 1.44 H, AST 18, ALT 9, Alkaline Phosphatase 83, Total Protein 6.0, Albumin 3.0 L, Globulin 3.0, Albumin/Globulin Ratio 1.0, Lipase 7 L 10/10/24 18:24: Urine Color Yellow, Urine Clarity Clear, Urine pH 5.0, Ur Specific [place] 1.010, Urine Protein 30 H, Urine Glucose (UA) 250 H, Urine Ketones 15 H, Urine Occult Blood 250 H, Urine Nitrite Negative, Urine Bilirubin Negative, Urine Urobilinogen 1 H, Ur Leukocyte Esterase 100 H, Urine RBC 0-5 SEEN, Urine WBC 5-10 SEEN, Ur Squamous Epith Cells 0-5 SEEN, Urine Bacteria 0 SEEN, Urine Mucus 0 SEEN 10/10/24 23:57: POC Glucose 89 10/11/24 05:45: WBC 8.0, RBC 3.42 L, Hgb 10.4 L, Hct 31.5 L, MCV 92.1, MCH 30.4, MCHC 33.0, RDW Std Deviation 57.7 H, RDW Coeff of Devante 16.9 H, Plt Count 247, MPV 11.2, PT 78.4 H, INR 9.4 H*, Sodium 139, Potassium 4.2, Chloride 108, Carbon Dioxide 22.0, Anion Gap 9, BUN 23 H, Creatinine 1.09, Estim Creat Clear Calc 34.52 L, Est GFR (MDRD) Non-Af 50 L, BUN/Creatinine Ratio 21.5 H, Glucose 145 H, Calcium 7.7 10/11/24 06:02: POC Glucose 135 H Physical Exam Narrative General: Alert, oriented, no apparent distress HEENT: Atraumatic, normocephalic Eyes: Anicteric, normal conjunctiva, extraocular movements grossly intact Neck: Supple Respiratory: Clear to auscultation bilaterally, normal respiratory effort Cardiovascular: Regular rate GI: Soft, no severe tenderness on palpation, no rebound, guarding, rigidity, nondistended Extremities: No edema Musculoskeletal: Moving all extremities Neuro: No overt focal neurological deficits Skin: No rashes appreciated Psych: Cooperative Assessment & Plan Assessment/Plan (1) Abdominal pain: (2) Colitis: PLAN: Plan #Abd pain 2/[address] of abdomen pelvis done on an outpatient basis in the a.m. of presentation noted circumferential thickening in the descending colon most consistent with colitis and also noted significant calcification of the SMA but no evidence of new or recurrent cancer -There was concern that colitis could have been possibly secondary to mesenteric ischemia but unclear etiology -Patient was started on Zosyn -GI consulted - Patient is beginning to feel better with improved nausea, starting to tolerate p.o. and abdominal pain now intermittent # Supratherapeutic INR -12.5 on presentation and patient given a dose of p.o. 5 mg vitamin K, INR 9.4 today -Continue to hold Coumadin -Trend INR # History of DVT -Supratherapeutic INR, holding Coumadin #Hx peritoneal cancer - Follows with [facility] -Diagnosed in 2008 and has had recurrences and gone through several rounds of chemotherapy -Last round of chemo back in 2021 but has not seen her cancer doctor at [facility] since then - CT scan prior to arrival questioned area of necrosis versus metastasis, patient beginning to feel better, awaiting GI input but will likely be able to do this on an outpatient basis through her physician she will be following with #Type 1 diabetes mellitus - Follows with endocrinology and has insulin pump -Patient mentally sharp, per endocrine note from June patient has excellent glucose control -Continue insulin pump # Normocytic anemia - Hemoglobin was 11.9 on presentation, she 10.4 - May be dilutional, no evidence of ongoing blood loss #Hypothyroidism -Continue Synthroid #Hypertension - Given mesenteric ischemia cannot be ruled out patient's valsartan held, Toprol continued #DVT ppx: SCDs Grecia Griffith MD Charges/Coding Visit Charges Inpatient E&M: 42914 Subs Hosp L2
[2024-10-11] MEDS: Metoprolol(XL)Succ 25 MG Tablet PO (08:19)
--- NOTE | 2024-10-11 14:00 | CASEMGMT ---
Social Work SW reviewed therapy notes, no therapy recommended at d/c. SW spoke w/pt and daughter in room, no homegoing needs anticipated. SW remains available should any needs arise. BENJAMIN Eisenberg
--- NOTE | 2024-10-11 21:38 | EX.PCM.CON.G ---
HPI Consult Data Date of Consult: 10/11/24 HPI Narrative Reason for Consultation: Abdominal pain HPI Narrative: ALMA AZUL, is a 84 F who presents with abdominal pain is started 2 months ago. Patient states the pains got worse over the last week. She has a past medical history of peritoneal cancer and she had 4 occurrences that were all treated with systemic chemotherapy. She says that she had been doing well until a couple months ago when she had crampy abdominal pain with episodes of diarrhea treated with Imodium and with some episodes of fecal incontinence. She had a CT scan of the abdomen pelvis done today as an outpatient and was called at home and told that she had some abnormalities that needed to be addressed that she needed to go to the emergency department at [facility]. Patient wanted to come to our facility instead and be treated. Apparently from the chart her CT scan of the abdomen pelvis that showed bowel wall thickening involving the descending colon and calcification around the superior mesenteric artery. She has been afebrile since being in the hospital. She was started on systemic antibiotic therapy. She says that her stools have been thickening up since being in the hospital and she is starting to feel little bit better. However she is very concerned that her CA 19-9 had gone up from 11 to 55. 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 Thyroid disease Carpal tunnel syndrome Cataracts, bilateral Cancer Hx of blood clots Bone fracture Back problem Arthritis Diabetes type 1, controlled Home Medications ?Medication ?Instructions ?Recorded ?Last Taken ?Type atorvastatin 10 mg tablet 10 mg PO DAILY 04/07/16 04/06/16 18:00 History 10 MG coenzyme Q10 200 mg capsule (Co 200 mg PO DAILY 08/21/19 Unknown History Q-10) vitamin B comp and C no.3 15 mg-10 1 cap PO DAILY 08/21/19 Unknown History mg-50 mg-5 mg-300 mg capsule (B Complex Plus Vitamin C) levothyroxine 112 mcg tablet 112 mcg PO DAILY 10/28/20 Unknown History ergocalciferol (vitamin D2) 1,250 50,000 unit PO MOWE 01/16/22 Unknown History mcg (50,000 unit) capsule blood sugar diagnostic (Accu-Chek #100 ea 05/04/22 Unknown Rx Guide test strips) lancing device with lancets kit #100 ea 05/04/22 Unknown Rx (Accu-Chek FastClix Lancing Device kit) mecobalamin (vitamin B12) 10,000 10,000 mcg IM MONTHLY 09/18/22 Unknown History mcg solution for injection alcohol swabs (Alcohol Prep Pads) 1 pad topical DAILY #200 ea 03/19/23 Unknown Rx warfarin 2 mg tablet 2 mg PO DAILY 03/19/23 Unknown History metoprolol succinate 25 mg 25 mg PO DAILY 09/25/23 Unknown History tablet,extended release 24 hr valsartan 80 mg tablet 80 mg PO DAILY 04/03/24 Unknown History Tylenol pm PO .HS PRN sleep/pain 10/10/24 10/09/24 History insulin lispro-aabc 100 unit/mL See Rx Instructions subcut DAILY 10/10/24 Unknown History subcutaneous solution (Lyumjev U-100 Insulin) Allergy/AdvReac Type Severity Reaction Status Date / Time acetaminophen (From Percocet) Allergy Unknown Verified 10/10/24 17:24 Anesthetics - Amide Type - Allergy NEEDS Verified 10/10/24 17:24 Select A FOLLOW-UP Anesthetics - Kalie Type- Allergy NEEDS Verified 10/10/24 17:24 Parabens FOLLOW-UP codeine Allergy Unknown Verified 10/10/24 17:24 meperidine (From Demerol) Allergy Unknown Verified 10/10/24 17:24 midazolam HCl (From Versed) Allergy Unknown Verified 10/10/24 17:24 oxycodone (From Percocet) Allergy Unknown Verified 10/10/24 17:24 Family History Mother Breast cancer Father Heart disease Surgical History H/O ultrasound guided needle biopsy S/P skin biopsy History of total abdominal hysterectomy H/O colonoscopy H/O umbilical hernia repair Hx of cataract surgery History of carpal tunnel surgery H/O: Hx of appendectomy History of tonsillectomy Social History Smoking Status: Former smoker second hand exposure: No alcohol intake: never substance use type: does not use ROS Constitutional Constitutional: Denies fatigue, fever(s), poor appetite, weight gain or weight loss Gastrointestinal Gastrointestinal: Denies belching, bloating, change in bowel habits, change in stool character, chewing difficulty, coffee ground emesis, constipation, cramping, diarrhea, dyspepsia, dysphagia, early satiety, excessive flatus, fecal incontinence, heartburn, hematemesis, hematochezia, hemorrhoids, loose stools, melena, nausea, odynophagia, rectal bleeding, tenesmus, vomiting or weight changes Physical Exam Const alert, oriented x3, no apparent distress and healthy appearing General Appearance: cooperative GI normal to inspection, nondistended, normoactive bowel sounds, soft to palpation, non-tender and non-distended Percussion: normal to percussion Rectal Exam: deferred Lab / Micro Data 10/11/24 05:45 10/11/24 05:45 Labs: Laboratory Results - last 24 hr 10/10/24 23:57: POC Glucose 89 10/11/24 05:45: WBC 8.0, RBC 3.42 L, Hgb 10.4 L, Hct 31.5 L, MCV 92.1, MCH 30.4, MCHC 33.0, RDW Std Deviation 57.7 H, RDW Coeff of Devante 16.9 H, Plt Count 247, MPV 11.2, PT 78.4 H, INR 9.4 H*, Sodium 139, Potassium 4.2, Chloride 108, Carbon Dioxide 22.0, Anion Gap 9, BUN 23 H, Creatinine 1.09, Estim Creat Clear Calc 34.52 L, Est GFR (MDRD) Non-Af 50 L, BUN/Creatinine Ratio 21.5 H, Glucose 145 H, Calcium 7.7 10/11/24 06:02: POC Glucose 135 H 10/11/24 20:39: POC Glucose 71 L Micro: Microbiology 10/10/24 23:22 Stool Enteric Bacteriology - Final Assessment & Plan Assessment/Plan (1) Colitis: (2) Abdominal pain: PLAN: 71-year-old female with a history of peritoneal cancer in remission, admitted to the hospital with suspected ischemic colitis. She reports experiencing sudden-onset abdominal pain and tenderness, located primarily in the left lower quadrant, for the past 24 hours. The pain is described as cramping and aching, associated with a feeling of urgency to have a bowel movement. She also reports bright red blood in her stool. She denies nausea, vomiting, or fever. The patient reports a long history of constipation. Recently she has been experiencing some more diarrhea. Stools are negative for infection in the hospital. She has a past medical history significant for hypertension, type 1 diabetes and DVT for which she is currently taking medication, and she has a history of peritoneal cancer that is currently in remission. Upon examination, the patient's vital signs are stable, however, she has mild tachycardia with a heart rate of 92 bpm which is improved. She is alert and oriented, and her abdominal examination reveals tenderness to palpation in the left lower quadrant, but no guarding or rebound tenderness. An outpatient oral contrast-enhanced abdominal CT scan was performed and showed signs of inflammation and reduced blood flow in the left colon, consistent with ischemic colitis. The patient's clinical presentation, including sudden abdominal pain, bloody diarrhea, and tenderness in the left lower quadrant, along with the CT scan findings, are consistent with a diagnosis of ischemic colitis. Her age, history of peritoneal cancer in remission, and hypertension are significant risk factors for this condition. The mild tachycardia and normal white blood cell count does not suggest the possibility of a more severe or complicated course, such as potential complications such as perforation or sepsis. The patient is currently being hospitalized and managed with supportive care measures. This includes intravenous fluids to correct any dehydration and improve colon perfusion. Continue with systemic anticoagulation broad-spectrum antibiotics will be continued empirically to cover the possibility of infection, given the inflammatory changes and her risk factors. Her vital signs, including blood pressure, will be closely monitored to ensure hemodynamic stability. The patient's current medication list will be reviewed, and any medications that may constrict blood vessels or exacerbate ischemic colitis, such as certain heart medications, will be temporarily discontinued or adjusted, if possible. Recommendations: - ESR, CRP, lactate - CT angiography of the abdomen pelvis - Possible colonoscopy versus flexible sigmoidoscopy Charges/Coding Visit Charges Inpatient E&M: 53091 Init Hosp L3
--- NOTE | 2024-10-11 21:50 | CT_ITS ---
PROCEDURE: CTA ABD/PELVIS W/WO CONTRAST 10/11/2024 REASON FOR EXAM: ISCHEMIC COLITIS AND H/O RECURRENT PERITONEAL CA TECHNIQUE: CTA ABD/PELVIS W/WO CONTRAST Multiplanar Sagittal and Coronal images were obtained. CONTRAST: Isovue 370 VOLUME: 100 mL One or more dose reduction techniques were used (e.g., Automated exposure control, adjustment of the mA and/or kV according to patient size, use of iterative reconstruction technique). RADIATION DOSE SUMMARY: CTDlvol: 39 mGy DLP: 896 mGycm COMPARISON: No FINDINGS: Under aerated lung bases. Rounded density, posterior right lower lobe, favoring rounded atelectasis. Normal heart size. 1 cm hypervascular liver lesion, series 2, image 33, favoring perfusion anomaly or atypical hemangioma. Normal gallbladder, pancreas, spleen, adrenal glands. Bilateral renal scarring. No hydronephrosis. Unremarkable bladder. Status post hysterectomy. No retroperitoneal or pelvic adenopathy. No free air or free fluid. There is presacral fat stranding, nonspecific. Lumbar spine degeneration. Abdominopelvic wall edema. Supraumbilical hernia of omental fat and anterior wall of large bowel, not causing obstruction. Nondistended bowel. Moderate stool. Circumferential sigmoid colon wall thickening, adjacent fat stranding. No pneumatosis. Scattered calcified plaque. The aortoiliac system, and branch vessels, show no high-grade stenosis, or dissection. 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/CTA Abd/Pelvis W/WO Contrast IMPRESSION: Sigmoid colitis, such as secondary to infection or less likely ischemia. Guilherme petersen is a secondary consideration. Reading Location: [place] [id number]
[2024-10-12 00:33] LABS: CRP 131.00 mg/L (0.0-3.0)
[2024-10-12 05:52] VITALS: BP 138/57; PULSE 77; RESP 16; TEMP 36.5; O2SAT 97
[2024-10-12] MEDS: Piperacil/Tazobactam 3.375 GM in 0.9% Normal Saline (50mL MB+) 50 ML IV ×3 (05:55→22:50)
[2024-10-12] MEDS: 0.9% Saline Lock 10 ML Syringe IV (06:13)
[2024-10-12 07:18] LABS: Hematocrit 33.2 % (37-47); Hemoglobin 10.8 g/dL (12.0-15.0); Mean Corp Hgb Conc 32.5 g/dL (32-36); Mean Corpuscular Volume 92.5 fL (81-99); Mean Platelet Vol. 10.8 fl (6.2-12.0); Platelet Count 249 K/mm3 (150-450); RBC Distribution Width CV 16.7 % (11.6-14.6); RBC Distribution Width SD 57.1 fl (35.1-43.9); Red Blood Count 3.59 M/mm3 (4.2-5.4); White Blood Count 5.5 K/mm3 (4.4-11.0)
[2024-10-12 07:48] LABS: Anion Gap 10 (5-15); BUN 21 mg/dL (4-19); BUN/Creat Ratio 21.6 RATIO (10-20); Calcium,Total 8.0 mg/dL (7.6-11.0); Carbon Dioxide 22.4 mmol/L (21.0-32.0); Chloride 107 mmol/L (98-108); Estimated Creatinine Clearance 39.61 ml/min (50-250); Glucose 139 mg/dL (70-99); Potassium 3.9 mmol/L (3.3-5.1)
[2024-10-12 08:12] LABS: Prothrombin Time (Protime)PT. 25.8 SECONDS (11.7-14.9)
[2024-10-12 08:37] VITALS: BP 132/54; PULSE 83; RESP 16; TEMP 36.6; O2SAT 97
[2024-10-12 08:50] VITALS: PULSE 83
[2024-10-12] MEDS: Metoprolol(XL)Succ 25 MG Tablet PO (08:50)
--- NOTE | 2024-10-12 11:29 | PN.HOSP_ITS ---
Reason for Visit Chief Complaint: Worsening abdominal pain Subjective Subjective Patient sitting up at bedside using incentive spirometer. Reports pain overall still improved from admission and is tolerating p.o. better, not presently nauseous Objective Data Objective Data Vital Signs: Vital Signs Temp Pulse Resp BP Pulse Ox O2 Del Method 97.8 F 83 16 132/54 H 97 Room Air 10/12/24 08:37 10/12/24 08:50 10/12/24 08:37 10/12/24 08:37 10/12/24 08:37 10/12/24 08:37 Oxygen Delivery Method Room Air Weight: 70.6 kg Body Mass Index (BMI) 28.6 Intake & Output: Intake and Output for Last 24 Hours 10/10/24 10/11/24 10/12/24 23:59 23:59 23:59 Intake Total 100 / 100 2338.33 / 2338.33 100 / 100 Balance 100 / 100 2338.33 / 2338.33 100 / 100 Lab / Micro Data 10/12/24 06:11 10/12/24 06:11 Labs: Laboratory Results - last 24 hr 10/11/24 20:39: POC Glucose 71 L 10/11/24 21:12: POC Glucose 68 L 10/11/24 22:34: POC Glucose 127 H 10/11/24 23:44: ESR 38 H, Lactic Acid < 1.0, C-React Prot Ext Range 131.00 H 10/12/24 06:11: WBC 5.5, RBC 3.59 L, Hgb 10.8 L, Hct 33.2 L, MCV 92.5, MCH 30.1, MCHC 32.5, RDW Std Deviation 57.1 H, RDW Coeff of Devante 16.7 H, Plt Count 249, MPV 10.8, PT 25.8 H, INR 2.3, Sodium 140, Potassium 3.9, Chloride 107, Carbon Dioxide 22.4, Anion Gap 10, BUN 21 H, Creatinine 0.95, Estim Creat Clear Calc 39.61 L, Est GFR (MDRD) Non-Af 59 L, BUN/Creatinine Ratio 21.6 H, Glucose 139 H, Calcium 8.0 10/12/24 06:47: POC Glucose 125 H Micro: Microbiology 10/10/24 23:22 Stool Enteric Bacteriology - Final Radiography Diagnostic Testing: Radiology Impression Abdomen/Pelvis CTA 10/11/24 21:50 IMPRESSION: Sigmoid colitis, such as secondary to infection or less likely ischemia. Malignancy is a secondary consideration. Reading Location: [place] [address] Physical Exam Narrative General: Alert, oriented, no apparent distress HEENT: Atraumatic, normocephalic Eyes: Anicteric, normal conjunctiva, extraocular movements grossly intact Neck: Supple Respiratory: Normal respiratory effort Cardiovascular: Regular rate GI: Soft, no severe tenderness on palpation, no rebound, guarding, rigidity, nondistended Extremities: No edema Musculoskeletal: Moving all extremities Neuro: No overt focal neurological deficits Skin: No rashes appreciated Psych: Cooperative Assessment & Plan Assessment/Plan (1) Abdominal pain: (2) Colitis: PLAN: Plan #Abd pain 2/[address] - [address] of abdomen pelvis done on an outpatient basis in the a.m. of presentation noted circumferential thickening in the descending colon most consistent with colitis and also noted significant calcification of the SMA but no evidence of new or recurrent cancer -There was concern that colitis could have been possibly secondary to mesenteric ischemia but unclear etiology -Patient was started on Zosyn -GI consulted - Patient is beginning to feel better with improved nausea, starting to tolerate p.o. and abdominal pain now intermittent -10/12: CTA abdomen pelvis performed last night with sigmoid colitis such as secondary to infection or less likely ischemia, malignancy is a secondary consideration. Patient does have CRP of 131 and ESR slightly elevated at 38 with no previous labs available in our system. CEA is pending. Per GI plan is for bowel prep today and scope tomorrow. Patient on clear liquids and made n.p.o. at midnight. Will continue antibiotics at this time # Supratherapeutic INR -12.5 on presentation and patient given a dose of p.o. 5 mg vitamin K, INR 9.4 today -Continue to hold Coumadin -Trend INR -10/12: INR 2.4 today, patient for scope tomorrow, will need to resume Coumadin likely after that with consideration of dose adjustment given supratherapeutic INR on presentation # History of DVT -Supratherapeutic INR, holding Coumadin -3: INR 2.4, patient for scope tomorrow, ultimately need to resume Coumadin when able to do so #Hx peritoneal cancer - Follows with [facility] -Diagnosed in 2008 and has had recurrences and gone through several rounds of chemotherapy -Last round of chemo back in 2021 but has not seen her cancer doctor at [facility] since then - CT scan prior to arrival questioned area of necrosis versus metastasis, patient beginning to feel better, awaiting GI input but will likely be able to do this on an outpatient basis through her physician she will be following with -10/12: Follow with [facility] on discharge #Type 1 diabetes mellitus - Follows with endocrinology and has insulin pump -Patient mentally sharp, per endocrine note from June patient has excellent glucose control -Continue insulin pump -10/12: Patient decreased basal rate last night when glucose was low and reportedly declined to turn it off, glucose today 125 # Normocytic anemia - Hemoglobin was 11.9 on presentation, she 10.4 - May be dilutional, no evidence of ongoing blood loss -10/12: Hemoglobin stable at 10.8 Chronic medical problems and/or problems not being actively addressed during today's encounter: #Hypothyroidism -Continue Synthroid #Hypertension - Given mesenteric ischemia cannot be ruled out patient's valsartan held, Toprol continued #DVT ppx: SCDs Grecia Griffith MD Charges/Coding Visit Charges Inpatient E&M: 87041 Subs Hosp L2
[2024-10-12] MEDS: Electrolyte Solution/Peg's 4000 ML PO (13:40)
[2024-10-12 14:11] VITALS: BP 141/56; PULSE 85; RESP 17; TEMP 36.6; O2SAT 98
[2024-10-12 22:41] VITALS: BP 150/68; PULSE 103; RESP 18; TEMP 36.7; O2SAT 97
[2024-10-12] MEDS: 0.9% Normal Saline (1000mL) 1,000 ML 50 ML IV (23:02)
--- NOTE | 2024-10-12 23:27 | EKG12_ITS ---
Test Reason : PRE OP Blood Pressure : */* mmHG Vent. Rate : 103 BPM Atrial Rate : 103 BPM P-R Int : 150 ms QRS Dur : 102 ms QT Int : 362 ms P-R-T Axes : 63 3 42 degrees QTcB Int : 474 ms Sinus tachycardia Low voltage QRS Cannot rule out Inferior infarct , age undetermined Abnormal ECG When compared with ECG of 15-May-2016 10:09, No significant change was found Confirmed by SILAS HUBBARD, SARINA ([id number]), web content editor ALISSON RUIZ ([id number]) on 10/15/2024 12:59:34 PM Referred By: Confirmed By: SARINA ROSEN MD
[2024-10-13] VITALS (12 sets, daily range): BP systolic 100–140; BP diastolic 53–65; PULSE 92–105; RESP 16–18; TEMP 36.2–36.9; O2SAT 97–100
[2024-10-13 04:06] LABS: Hematocrit 31.8 % (37-47); Hemoglobin 10.4 g/dL (12.0-15.0); Mean Corp Hgb Conc 32.7 g/dL (32-36); Mean Corpuscular Volume 92.2 fL (81-99); Mean Platelet Vol. 10.4 fl (6.2-12.0); Platelet Count 253 K/mm3 (150-450); RBC Distribution Width CV 16.7 % (11.6-14.6); RBC Distribution Width SD 56.6 fl (35.1-43.9); Red Blood Count 3.45 M/mm3 (4.2-5.4); White Blood Count 7.1 K/mm3 (4.4-11.0)
[2024-10-13 04:17] LABS: Prothrombin Time (Protime)PT. 20.3 SECONDS (11.7-14.9)
[2024-10-13 04:54] LABS: Anion Gap 18 (5-15); BUN 19 mg/dL (4-19); BUN/Creat Ratio 16.7 RATIO (10-20); Calcium,Total 7.9 mg/dL (7.6-11.0); Carbon Dioxide 18.4 mmol/L (21.0-32.0); Chloride 105 mmol/L (98-108); Estimated Creatinine Clearance 33.90 ml/min (50-250); Glucose 179 mg/dL (70-99); Potassium 3.6 mmol/L (3.3-5.1)
[2024-10-13] MEDS: Piperacil/Tazobactam 3.375 GM in 0.9% Normal Saline (50mL MB+) 50 ML IV ×3 (06:33→21:17)
[2024-10-13] MEDS: Metoprolol(XL)Succ 25 MG Tablet PO (08:30)
--- NOTE | 2024-10-13 10:53 | PCM.PN.HOSP ---
Reason for Visit Chief Complaint: Worsening abdominal pain Subjective Subjective Saw patient at bedside this morning. Patient was sitting back comfortably in bedside chair, conversing normally, in no acute distress. She completed bowel prep last night and was having clear bowel movements this morning. No other acute concerns today. Objective Data Objective Data Vital Signs: Vital Signs Temp Pulse Resp BP Pulse Ox O2 Del Method 98.5 F 104 H 18 126/55 H 97 Room Air 10/13/24 08:21 10/13/24 08:30 10/13/24 08:21 10/13/24 08:21 10/13/24 08:21 10/13/24 08:24 Oxygen Delivery Method Room Air Weight: 70.6 kg Body Mass Index (BMI) 28.6 Intake & Output: Intake and Output for Last 24 Hours 10/11/24 10/12/24 10/13/24 23:59 23:59 23:59 Intake Total 2338.33 / 2338.33 150 / 150 100 / 100 Balance 2338.33 / 2338.33 150 / 150 100 / 100 Lab / Micro Data 10/13/24 03:45 10/13/24 03:45 Labs: Laboratory Results - last 24 hr 10/12/24 22:59: POC Glucose 140 H 10/13/24 03:45: WBC 7.1, RBC 3.45 L, Hgb 10.4 L, Hct 31.8 L, MCV 92.2, MCH 30.1, MCHC 32.7, RDW Std Deviation 56.6 H, RDW Coeff of Devante 16.7 H, Plt Count 253, MPV 10.4, PT 20.3 H, INR 1.7, Sodium 142, Potassium 3.6, Chloride 105, Carbon Dioxide 18.4 L, Anion Gap 18 H, BUN 19, Creatinine 1.11, Estim Creat Clear Calc 33.90 L, Est GFR (MDRD) Non-Af 49 L, BUN/Creatinine Ratio 16.7, Glucose 179 H, Hemoglobin A1c 6.5 H, Calcium 7.9, TSH 1.740 Micro: Microbiology 10/10/24 23:22 Stool Enteric Bacteriology - Final Physical Exam Const alert, oriented x3, no apparent distress and average body habitus Constitutional Narrative: Elderly female, good energy level today, sitting back comfortably in bedside chair, conversing normally, in no acute distress. General Appearance: cooperative and comfortable HEENT normocephalic, head/scalp atraumatic, hearing grossly normal bilaterally, nasal mucous membranes and turbinates normal and moist oral mucous membranes Eyes PERRL, EOMs intact bilaterally and conjunctivae normal Neck full ROM Chest inspection of chest normal Resp normal respiratory effort, normal air movement, no use of accessory muscles and clear to auscultation bilaterally Cardio regular rate, regular rhythm, no murmurs and peripheral pulses 2+ throughout GI GI Narrative: Mild tenderness to palpation in left lower abdomen. Abdomen otherwise soft and nondistended. Back/Spine normal ROM Extremity normal to inspection, full ROM and no pedal edema Skin no rashes or lesions noted Psych mental status grossly normal Assessment & Plan Assessment/Plan (1) Abdominal pain: (2) Colitis: PLAN: Plan Patient is an 84-year-old female who presented [facility] ED on 10/10/2024 with worsening abdominal pain. 1. Abdominal pain secondary to colitis ? GI following. Outpatient CT abdomen pelvis report on 10/10 noted circumferential thickening in the descending colon most consistent with colitis along with significant calcification of the SMA. Repeat CT abdomen pelvis here again showed circumferential sigmoid colon wall thickening with adjacent fat stranding consistent with sigmoid colitis, no other concerning findings. Colonoscopy on 10/13 showed patchy severe inflammation in the rectosigmoid colon, sigmoid colon and descending colon secondary to ischemic colitis that was biopsied. Stool PCR panel was normal. Will continue to treat with IV Zosyn. Appreciate further GI recommendations. Suspect patient will be medically ready for discharge tomorrow. 2. History of DVT on warfarin with supratherapeutic INR, improved ? INR 12.5 on admit. Hemoglobin stable at baseline, no signs of active bleeding. Given dose of p.o. vitamin K on admit. INR downtrended well, most recent INR 1.7 on 10/13. Will plan to restart home warfarin tomorrow morning. 3. History of recurrent peritoneal cancer ? Follows with [facility] oncology. Initially diagnosed into 2008. Has undergone multiple rounds of chemotherapy for this. Completed last round of chemotherapy in 2021. CA125 level has been monitored and steadily been rising, so plan is for patient to follow-up with [facility] oncology at the end of this month. CT abdomen pelvis with no overt findings of new areas of cancer. No inpatient needs. 4. Type 1 diabetes mellitus on insulin pump ? Follows with endocrinology. Diagnosed with diabetes in her early teens. Per last endocrinology note from June, has excellent glucose control. Good blood sugar control while inpatient, continue insulin pump. 5. Normocytic anemia ? Hemoglobin 11.9 on admit, baseline 10-11. Has remained stable at baseline during hospitalization. 6. Hypertension/hyperlipidemia ? Holding home valsartan given suspected mesenteric ischemia as above. Continue home Toprol. Continue home statin. 7. Hypothyroidism ? Continue home Synthroid. DVT prophylaxis: CODE STATUS: Full code, verified Expected disposition: Home, 1-2 days Total clinical time spent by myself addressing the patient's medical issues, reviewing all the data, and collaborating with patient's care team: 35 minutes. Charges/Coding Visit Charges Inpatient E&M: 49768 Subs Hosp L2
--- NOTE | 2024-10-13 11:26 | PRE.ANES_ITS ---
ASA Classification* ASA Classification ASA Classification: 3 Assessment & Plan Anesthesia* Anesthesia Assessment Anesthesia Assessment: Discussed sedation and/or anesthesia options, risks, benefits, and alternatives with patient/parents/legal guardian/POA. Questions invited. The patient/parents/legal guardian/POA seems to understand and agrees to proceed with anesthesia plan. Reviewed the physical assessment, medical history, allergy history and patient home medications list prior to surgery/procedure/anesthetic and documented any changes. Performed airway and anesthesia risk assessments. Anesthesia Type Anesthesia Type: MAC Anesthesia Focused Assessment* Temperature: 98.5 F Pulse Rate: 104 Blood Pressure: 126/55 Respiratory Rate: 18 Pulse Ox: 97 Airway Assessment Mouth opens: >3 cm Mallampati Score: II Labs Anesthesia Preop lab: CBC WBC 7.1 K/mm3 (4.4-11.0) 10/13/24 03:45 10/13/24 RBC 3.45 M/mm3 (4.2-5.4) L 10/13/24 03:45 10/13/24 Hgb 10.4 g/dL (12.0-15.0) L 10/13/24 03:45 5 Hct 31.8 % (37-47) L 10/13/24 03:45 10/13/24 Plt Count 253 K/mm3 (150-450) 10/13/24 03:45 10/13/24 CHEMISTRY Potassium 3.6 mmol/L (3.3-5.1) 10/13/24 03:45 10/13/24 Sodium 142 mmol/L (133-145) 10/13/24 03:45 10/13/24 Magnesium 1.8 mg/dL (1.6-2.6) 01/30/18 08:50 01/30/18 BUN 19 mg/dL (4-19) 10/13/24 03:45 10/13/24 Creatinine 1.11 mg/dL (0.70-1.20) 10/13/24 03:45 10/13/24 Glucose 179 mg/dL (70-99) H 10/13/24 03:45 10/13/24 POC Glucose 140 mg/dL (74-106) H 10/12/24 22:59 10/12/24 TSH 1.740 uIU/mL (0.300-4.200) 10/13/24 03:45 07/04 COAG PT 20.3 SECONDS (11.7-14.9) H 10/13/24 03:45 07/04 Pre-Assessment Diagnosis/Proposed Procedure Planned Operative Procedure(s): Colonoscopy Anesthesia History Anesthesia History - wrapping machine tender: Anesthesia History - wrapping machine tender Hx Hospitalization Yes 06/15/16 11:28 Any Problems With Anesthesia Yes: nausea/vomiting, takes 10/12/24 22:45 a long time to wake up Cholinesterase deficiency No 10/12/24 22:45 You/Your Family Experience No 10/12/24 22:45 fever (hyperthermia) with Relationship Recent Exposure to Contagious No 10/12/24 22:45 Disease Does patient have nerve No 10/12/24 22:45 stimulator Patient instructed to have device shut off --Does patient have Pacemaker or ICD? When Was Last Pacemaker Check QUESTION #4 FULL TEXT: You/Your Family Experience fever (hyperthermia) with Anesthesia Last Oral Intake Last Oral intake: Last Oral Intake NPO since Meds taken in AM with sips of water? Meds patient instructed to take am of surgery PONV PONV - wrapping machine tender: PONV - wrapping machine tender Female HX of Motion Sickness HX of N/V After Surgery Non-Smoker Duration of Surgery greater than 60 minutes Number of Risk Factors PONV Score Height & Weight Height & Weight: Anesthesia: Height & Weight Height 5 ft 1.81 in 10/11/24 13:03 Weight: 70.6 kg 10/11/24 13:03 Body Mass Index (BMI) 28.6 10/10/24 21:10 Respiratory Assessment Respiratory Assessment - wrapping machine tender: Respiratory Tract Infection Hx - wrapping machine tender Hx Respiratory Tract Infection No 10/12/24 22:45 STOP Sleep Apnea STOP Sleep Apnea - wrapping machine tender: STOP Sleep Apnea - wrapping machine tender Hx Hypertension No 10/11/24 12:43 Hx Sleep Apnea No 10/10/24 21:14 CPAP BIPAP Do you snore loudly (louder No 10/10/24 21:14 than talking or can be heard Do you often feel tired/ No 10/10/24 21:14 fatigued/ sleepy during daytime? Has anyone observed you stop No 10/10/24 21:14 breathing during sleep? STOP Results Negative 10/10/24 21:14 QUESTION #5 FULL TEXT : Do you snore loudly (louder than talking or can be heard through closed doors)? Tobacco Use History Tobacco Use History - wrapping machine tender: Tobacco Use History - wrapping machine tender Tobacco Use Smoking Status Former smoker 10/10/24 21:14 Hx Tobacco Use No 10/10/24 21:14 Years Smoking Packs Smoked per Day Smoking Cessation Date was No - quit smoking greater 10/10/24 21:14 within the last 15 years than 15 years ago Hx Smoking Cessation Date Hx Smoking Cessation No 10/10/24 21:14 Counseling Hematologic Medial History Hematologic Hx - wrapping machine tender: Hematologic Medical Hx - hr shared services consultant Hx of Blood Transfusion Yes 10/10/24 21:14 Hx of Transfusion in last 3 No 10/10/24 21:14 Months Date of Last Transfusion (if within last 3 months) Ever experience any problems No 10/10/24 21:14 with transfusion(s)? Specify any problems Hx of Preganancy in last 3 N/A 10/10/24 21:14 Months Nurse Filling Out Transfusion CSIGNORIN 10/10/24 21:14 & Questions: Date: 10/10/24 10/10/24 21:14 Time: 21:17 10/10/24 21:14 Patient unable to answer at this time (ie. confused, unrespo /Reproduction History /Reproductive History - wrapping machine tender: /Reproductive Hx- wrapping machine tender Hx Now No 10/12/24 22:45 Gestational Age (in weeks): EDC: Hx Hx Para Hx Section SAB No 10/12/24 22:45 Active Medications Active Medications: Current Medications Generic Name Dose Route Start Last Admin Trade Name Freq PRN Reason Stop Dose Admin Acetaminophen 650 mg 10/11/24 07:40 Acetaminophen 325 Mg Tablet PO Q6H PRN PRN Pain 1-10 Or Fever >100.7 Atorvastatin Calcium 10 mg 10/11/24 10:00 10/13/24 07:04 Atorvastatin Calcium 10 Mg Tablet PO Not Given DAILY SHOAIB Glucagon 1 mg 10/10/24 20:47 Glucagon 1 Mg/Ml Syringe IM X1 PRN Hypoglycemia Protocol Piperacillin Sod/Tazobactam 50 mls @ 12.5 mls/hr 10/10/24 22:00 10/13/24 10:45 Sod 3.375 gm/ Sodium Chloride IV Infused Q8 SHOAIB Infusion Dextrose 250 mls @ 0 mls/hr 10/10/24 20:47 Dextrose 10%-Water IV .Q0M PRN HYPOGLYCEMIA Protocol As Directed Sodium Chloride 250 mls @ 15 mls/hr 10/10/24 21:09 IV .[id number] PRN Saline Flush Sodium Chloride 250 mls @ 15 mls/hr 10/10/24 21:09 IV .[id number] PRN Additional IVPB Infusion Sodium Chloride 1,000 mls @ 50 mls/hr 10/13/24 00:01 10/12/24 23:02 IV 50 mls/hr .Q20H SHOAIB Administration Insulin Human Lispro 0 unit 10/10/24 22:00 10/13/24 04:24 Insulin Lispro 100 Unit/Ml Insuln.Pen SC Not Given ACHS SHAOIB Protocol Levothyroxine Sodium 112 mcg 10/11/24 06:00 10/13/24 03:50 Levothyroxine 112 Mcg Tablet PO 112 mcg DAILY@0600 SHOAIB Administration Melatonin 3 mg 10/10/24 20:47 10/11/24 00:21 Melatonin 3 Mg Tablet PO 3 mg QHS PRN PRN Administration INSOMNIA Metoprolol Succinate 25 mg 10/11/24 10:00 10/13/24 08:30 Metoprolol(Xl)Succ 25 Mg Tablet PO 25 mg DAILY SHOAIB Administration Protocol Nutritional Formula (Lactose Free) 120 ml 10/11/24 22:00 10/13/24 07:04 Glucerna Shake 120 Ml Liquid PO Not Given 4X/DAY SHOAIB Ondansetron HCl 4 mg 10/10/24 20:47 Ondansetron 4 Mg/2 Ml Vial IV Q8H PRN PRN NAUSEA/VOMITING Sodium Chloride 10 - 40 ml 10/10/24 21:09 10/12/24 06:13 0.9% Saline Lock 10 Ml Syringe IV 40 ml UD PRN Administration SALINE FLUSH PFSH Medical History Mixed hyperlipidemia 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 Thyroid disease Carpal tunnel syndrome Cataracts, bilateral Cancer Hx of blood clots Bone fracture Back problem Arthritis Diabetes type 1, controlled Home Medications ?Medication ?Instructions ?Recorded ?Last Taken ?Type atorvastatin 10 mg tablet 10 mg PO DAILY 04/07/1603/13 18:00 History 10 MG coenzyme Q10 200 mg capsule (Co 200 mg PO DAILY Unknown History Q-10) vitamin B comp and C no.3 15 mg-10 1 cap PO DAILY 08/10 03/31 Unknown History mg-50 mg-5 mg-300 mg capsule (B Complex Plus Vitamin C) levothyroxine 112 mcg tablet 112 mcg PO DAILY 10/28/20 Unknown History ergocalciferol (vitamin D2) 1,250 50,000 unit PO MOWE 01/16/22 Unknown History mcg (50,000 unit) capsule blood sugar diagnostic (Accu-Chek #100 ea 05/04/22 Unk nown Rx Guide test strips) lancing device with lancets kit #100 ea 05/04/22 Unkno wn Rx (Accu-Chek FastClix Lancing Device kit) mecobalamin (vitamin B12) 10,000 10,000 mcg IM MONTHLY 09/18/22 Unknown History mcg solution for injection alcohol swabs (Alcohol Prep Pads) 1 pad topical DAILY #200 ea 03/19/23 Unknown Rx warfarin 2 mg tablet 2 mg PO DAILY 03/19/23 Unkno wn History metoprolol succinate 25 mg 25 mg PO DAILY 09/25/23 Unk nown History tablet,extended release 24 hr valsartan 80 mg tablet 80 mg PO DAILY 04/03/24 Unkn own History Tylenol pm PO .HS PRN sleep/pain 10/09/24 History insulin lispro-aabc 100 unit/mL See Rx Instructions lucio bcut DAILY 10/10/24 Unknown History subcutaneous solution (Lyumjev U-100 Insulin) Allergy/AdvReac Type Severity Reaction Status Date / Time acetaminophen (From Percocet) Allergy Unknown Verified 10/10/24 17:24 Anesthetics - Amide Type - Allergy NEEDS Verified 10/10/24 17:24 Select A FOLLOW-UP Anesthetics - Kalie Type- Allergy NEEDS Verified 10/10/24 17:24 Parabens FOLLOW-UP codeine Allergy Unknown Verified 10/10/24 17:24 meperidine (From Demerol) Allergy Unknown Verified 10/10/24 17:24 midazolam HCl (From Versed) Allergy Unknown Verified 10/10/24 17:24 oxycodone (From Percocet) Allergy Unknown Verified 10/10/24 17:24 Family History Mother Breast cancer Father Heart disease Surgical History H/O ultrasound guided needle biopsy S/P skin biopsy History of total abdominal hysterectomy H/O colonoscopy H/O umbilical hernia repair Hx of cataract surgery History of carpal tunnel surgery H/O: Hx of appendectomy History of tonsillectomy Social History Smoking Status: Former smoker second hand exposure: No alcohol intake: never substance use type: does not use Review of Systems (Anesthesia) ROS Narrative System reviewed and no additional complaints, except as documented.
--- NOTE | 2024-10-13 12:10 | PCM.PN.BLA ---
Progress Note Patient prep for colonoscopy yesterday. She tolerated the prep without any problems. Physical Exam Narrative General: Alert, oriented, no apparent distress HEENT: Atraumatic, normocephalic Eyes: Anicteric, normal conjunctiva, extraocular movements grossly intact Neck: Supple Respiratory: Normal respiratory effort Cardiovascular: Regular rate GI: Soft, no severe tenderness on palpation, no rebound, guarding, rigidity, nondistended Extremities: No edema Musculoskeletal: Moving all extremities Neuro: No overt focal neurological deficits Skin: No rashes appreciated Psych: Cooperative Assessment & Plan Assessment/Plan (1) Colitis: (2) Abdominal pain: PLAN: 71-year-old female with a history of peritoneal cancer in remission, admitted to the hospital with suspected ischemic colitis. She reports experiencing sudden-onset abdominal pain and tenderness, located primarily in the left lower quadrant, for the past 24 hours. The pain is described as cramping and aching, associated with a feeling of urgency to have a bowel movement. She also reports bright red blood in her stool. She denies nausea, vomiting, or fever. The patient reports a long history of constipation. Recently she has been experiencing some more diarrhea. Stools are negative for infection in the hospital. She has a past medical history significant for hypertension, type 1 diabetes and DVT for which she is currently taking medication, and she has a history of peritoneal cancer that is currently in remission. Upon examination, the patient's vital signs are stable, however, she has mild tachycardia with a heart rate of 92 bpm which is improved. She is alert and oriented, and her abdominal examination reveals tenderness to palpation in the left lower quadrant, but no guarding or rebound tenderness. An outpatient oral contrast-enhanced abdominal CT scan was performed and showed signs of inflammation and reduced blood flow in the left colon, consistent with ischemic colitis. The patient's clinical presentation, including sudden abdominal pain, bloody diarrhea, and tenderness in the left lower quadrant, along with the CT scan findings, are consistent with a diagnosis of ischemic colitis. Her age, history of peritoneal cancer in remission, and hypertension are significant risk factors for this condition. The mild tachycardia and normal white blood cell count does not suggest the possibility of a more severe or complicated course, such as potential complications such as perforation or sepsis. The patient is currently being hospitalized and managed with supportive care measures. This includes intravenous fluids to correct any dehydration and improve colon perfusion. Continue with systemic anticoagulation broad-spectrum antibiotics will be continued empirically to cover the possibility of infection, given the inflammatory changes and her risk factors. Her vital signs, including blood pressure, will be closely monitored to ensure hemodynamic stability. The patient's current medication list will be reviewed, and any medications that may constrict blood vessels or exacerbate ischemic colitis, such as certain heart medications, will be temporarily discontinued or adjusted, if possible. Recommendations: - ESR, CRP, lactate - CT angiography of the abdomen pelvis - Possible colonoscopy versus flexible sigmoidoscopy 10/13/2024-patient will undergo colonoscopy. She was explained alternatives, risk and benefits include not withstanding bleeding, infection, sepsis, perforation, need for emergent . She will have an ASA of 3. Visit Charges Inpatient E&M: 19452 Subs Hosp L3
--- NOTE | 2024-10-13 12:46 | OP.COLON_ITS ---
Patient Name: Jerica Jorge Procedure Date: 10/13/2024 11:27 AM Date of : 1940 Age: 84 Procedure: Colonoscopy Indications: Clinically significant diarrhea of unexplained origin, Hematochezia Providers: Pankaj Mari DO Medicines: Monitored Anesthesia Care Patient Profile: This is an 84 year old female. Refer to note in patient chart for documentation of history and physical. Last Colonoscopy: more than 10 years ago. Complications: No immediate complications. Procedure: Pre-Anesthesia Assessment: - Prior to the procedure, a History and Physical was performed, and patient medications and allergies were reviewed. The patient is competent. The risks and benefits of the procedure and the sedation options and risks were discussed with the patient. All questions were answered and informed consent was obtained. Patient identification and proposed procedure were verified by the physician in the pre-procedure area. Mental Status Examination: alert and oriented. Airway Examination: normal oropharyngeal airway and neck mobility. Respiratory Examination: clear to auscultation. CV Examination: normal. Prophylactic Antibiotics: The patient does not require prophylactic antibiotics. Prior Anticoagulants: The patient has taken no anticoagulant or antiplatelet agents except for NSAID medication. ASA Grade Assessment: II - A patient with mild systemic disease. After reviewing the risks and benefits, the patient was deemed in satisfactory condition to undergo the procedure. The anesthesia plan was to use monitored anesthesia care (MAC). Immediately prior to administration of medications, the patient was re-assessed for adequacy to receive sedatives. The heart rate, respiratory rate, oxygen saturations, blood pressure, adequacy of pulmonary ventilation, and response to care were monitored throughout the procedure. The physical status of the patient was re-assessed after the procedure. After I obtained informed consent, the scope was passed under direct vision. Throughout the procedure, the patient's blood pressure, pulse, and oxygen saturations were monitored continuously. The Colonoscope was introduced through the anus and advanced to the ileocecal valve. The colonoscopy was performed without difficulty. The patient tolerated the procedure well. The quality of the bowel preparation was fair. The ileocecal valve was photographed. Scope In: 12:21:59 PM Scope Withdrawal Time 0 hours 5 minutes 54 seconds Scope Out: 12:39:18 PM Total Procedure Duration Time 0 hours 17 minutes 19 seconds Findings: The perianal and digital rectal examinations were normal. Multiple small and large-mouthed diverticula were found in the recto-sigmoid colon and sigmoid colon. Retroflexion was not performed due to very small rectal vault. Patchy severe inflammation characterized by erythema, friability, granularity and deep ulcerations was found in the recto-sigmoid colon, in the sigmoid colon and in the descending colon. Biopsies were taken with a cold forceps for histology. Verification of patient identification for the specimen was done. Estimated blood loss was minimal. Stool was found at the ileocecal valve. Impression: - Preparation of the colon was fair. - Diverticulosis in the recto-sigmoid colon and in the sigmoid colon. - Patchy severe inflammation was found in the recto-sigmoid colon, in the sigmoid colon and in the descending colon secondary to ischemic colitis. Biopsied. - Stool at the ileocecal valve. Recommendation: - [facility]. - Advance diet as tolerated. - Continue present medications. - Await pathology results. - No repeat colonoscopy due to age. Procedure Code(s): --- Professional --- 66442, Colonoscopy, flexible; with biopsy, single or multiple CPT copyright 2021 [employer]. All rights reserved. The codes documented in this report are preliminary and upon repair servicer review may be revised to meet current compliance requirements. Pankaj Mari DO 10/13/2024 12:45:28 PM This report has been signed electronically. Number of Addenda: 0 Note Initiated On: 10/13/2024 11:27 AM
--- NOTE | 2024-10-13 12:51 | PCM.POST.ANE ---
Anesthesia: Postop Eval I Current Vital Signs Temperature: 98.3 F Pulse Rate: 95 Blood Pressure: 106/65 Respiratory Rate: 16 Pulse Ox: 100 Oxygen Delivery Method: Room Air Assessment Airway patent: Yes Spontaneous unlabored respirations: Yes Mental status: Awake and Calm nausea: No Vomiting: No Anesthesia Complication: No Fluid Hydration Crystalloid volume administer (ml): 400 Total IV fluid infused: 400 Progress Note Anesthesia document: Postop Eval 1 completed: Yes
--- NOTE | 2024-10-13 13:00 | COLBX_PTH ---
PATIENT: ALMA AZUL LOC: MS3 U#:[id number] AGE/SX: 84/F ROOM: SD316 RE10/10/[address]: Dr. Jack Olivia MD : 1940 BED: 1 DIS: 10/14/2024 SPEC #: [id number] RECD: 10/13/24 13:01 STATUS: МАРИЯ REClaire #: [id number] CHIDI: 10/13/24 13:[address]: Pankaj Mari DEPT: SURGICAL PATHOLOGY RECD BY: Emre Jensen ENTERED: 10/13/24 14:11 SP TYPE: COLON BX OTHR DR: DO Dr. Melchor Whitman, DO Dr. Grecia Griffith MD Tissues: A - Sigmoid colon biopsy Procedures: Immunohistochemical Stains Surgery Specimen Level IV HEADER OPERATION: Colonoscopy and biopsy PRE-OP DIAGNOSIS: Colitis and abdominal pain TISSUE SUBMITTED: A- Sigmoid colon ischemic colitis MICROSCOPIC DIAGNOSIS A. Sigmoid colon, biopsy: - Acutely inflamed colonic mucosa with focal ulceration and detached fragments of fibrinopurulent debris. - IHC for CMV (cytomegalovirus) is negative. MICROSCOPIC DESCRIPTION Slides are reviewed. All matched controls reacted appropriately. These tests were developed and their performance characteristics determined by [facility]. They may not have been cleared or approved by the U.S. Food and Drug Administration. The FDA has determined that such clearance or approval is not necessary.? The above immunohistochemical/dualISH?markers are reviewed by the Pathologist. GROSS DESCRIPTION A. Received in fixative is one container labeled with the patient's name and designated Sigmoid colon ischemic colitis. The specimen consists of multiple irregular fragments of light kenny soft tissue that in aggregate measure 1 x 0.4 x 0.1 cm. The specimen is totally submitted in one cassette. UT 10/13/2024 CPT:76221,04778
--- NOTE | 2024-10-13 15:20 | NURSING ---
Pt hooked up her own insulin pump again after scope. Her blood sugar was 190 and it dosed her with .7ml
[2024-10-13] MEDS: 0.9% Normal Saline (1000mL) 1,000 ML 50 ML IV (21:15)
[2024-10-14 05:00] VITALS: BP 122/50; PULSE 91; RESP 18; TEMP 36.4; O2SAT 98
[2024-10-14] MEDS: Piperacil/Tazobactam 3.375 GM in 0.9% Normal Saline (50mL MB+) 50 ML IV (05:29)
[2024-10-14 08:18] LABS: Hematocrit 31.0 % (37-47); Hemoglobin 9.9 g/dL (12.0-15.0); Mean Corp Hgb Conc 31.9 g/dL (32-36); Mean Corpuscular Volume 94.5 fL (81-99); Mean Platelet Vol. 10.3 fl (6.2-12.0); Platelet Count 254 K/mm3 (150-450); RBC Distribution Width CV 17.1 % (11.6-14.6); RBC Distribution Width SD 59.5 fl (35.1-43.9); Red Blood Count 3.28 M/mm3 (4.2-5.4); White Blood Count 7.0 K/mm3 (4.4-11.0)
--- NOTE | 2024-10-14 08:29 | DS.PCM_ITS ---
Providers Date of Admission: 10/10/24 Date of Discharge: 10/14/24 Primary Care Physician: Dr. Melchor Washington, Consultations 10/10/24 20:47 Consult: Gastroenterology Routine Consulting Provider: Friend,Pankaj Reason for Consult: abd pain w/ left-sided colitis, concern for mesenteric ischemia EMERGENT Consult: No MD Notified: Yes Date Notified: 10/11/24 Time Notified: 07:58 Method of Notification: Text Reason For Visit: ABDOMINAL PAIN WITH COLITIS Diagnosis Discharge Diagnosis (1) Abdominal pain: Status: Acute Code(s): R10.9 - Unspecified abdominal pain (2) Colitis: Status: Acute Code(s): K52.9 - Noninfective gastroenteritis and colitis, unspecified Medications at Discharge Home Medications atorvastatin 10 mg tablet 10 mg PO DAILY 04/07/16 coenzyme Q10 200 mg capsule (Co Q-10) 200 mg PO DAILY 08/21/19 vitamin B comp and C no.3 15 mg-10 mg-50 mg-5 mg-300 mg capsule (B Complex Plus Vitamin C) 1 cap PO DAILY 08/21/19 levothyroxine 112 mcg tablet 112 mcg PO DAILY 10/28/20 ergocalciferol (vitamin D2) 1,250 mcg (50,000 unit) capsule 50,000 unit PO MOWE 01/16/22 blood sugar diagnostic (Accu-Chek Guide test strips) #100 ea 05/04/22 lancing device with lancets kit (Accu-Chek FastClix Lancing Device kit) #100 ea 05/04/22 mecobalamin (vitamin B12) 10,000 mcg solution for injection 10,000 mcg IM MONTHLY 09/18/22 alcohol swabs (Alcohol Prep Pads) 1 pad topical DAILY #200 ea 03/19/23 warfarin 2 mg tablet 2 mg PO DAILY 03/19/23 metoprolol succinate 25 mg tablet,extended release 24 hr 25 mg PO DAILY 09/25/23 Tylenol pm PO .HS PRN sleep/pain 10/10/24 insulin lispro-aabc 100 unit/mL subcutaneous solution (Lyumjev U-100 Insulin) See Rx Instructions subcut DAILY 10/10/24 amoxicillin 875 mg-potassium clavulanate 125 mg tablet 1 tab PO BID #20 tabs 10/14/24 Hospital Course Summary of Care Provided Minutes Spent on Discharge: 32 Hospital Course: Patient is an 84-year-old female who presented [facility] ED on 10/10/2024 with worsening abdominal pain. 1. Abdominal pain secondary to colitis ? GI following. Outpatient CT abdomen pelvis report on 10/10 noted circumferential thickening in the descending colon most consistent with colitis along with significant calcification of the SMA. Repeat CT abdomen pelvis here again showed circumferential sigmoid colon wall thickening with adjacent fat stranding consistent with sigmoid colitis, no other concerning findings. Colonoscopy on 10/13 showed patchy severe inflammation in the rectosigmoid colon, sigmoid colon and descending colon secondary to ischemic colitis that was biopsied. Stool PCR panel was normal. Patient was started on Zosyn consult placed to Dr. Mari with GI. Patient underwent colonoscopy which demonstrated Diverticulosis in the recto-sigmoid colon and in the sigmoid colon. Patchy severe inflammation was found in the recto-sigmoid colon, in the sigmoid colon and in the descending colon secondary to ischemic colitis. 2. Essential hypertension ? It was felt patient relatively low blood pressure contributed to ischemic colitis adjusted antihypertensives on discharge with discontinuation of valsartan and continuation of metoprolol 3. History of DVT ? Patient was found to have markedly elevated INR on admission 12.5, did receive vitamin K, INR on discharge was 2.3 4.. History of recurrent peritoneal cancer ? Follows with [facility]. Initially diagnosed into 2008. Has undergone multiple rounds of chemotherapy for this. Completed last round of chemotherapy in 2021. CA125 level has been monitored and steadily been rising, so plan is for patient to follow-up with [facility] oncology at the end of this month. CT abdomen pelvis with no overt findings of new areas of cancer. No inpatient needs. 5. Type 1 diabetes mellitus on insulin pump ? Follows with endocrinology. Diagnosed with diabetes in her early teens. Per last endocrinology note from June, has excellent glucose control. Good blood sugar control while inpatient, continue insulin pump. 6. Anemia ? Secondary to chronic disorder monitoring H&H and transfuse if patient becomes symptomatic or hemoglobin falls below 7 7. Dyslipidemia ?Patient is on statin therapy, continued at home dose 8. Hypothyroidism ? Patient is on levothyroxine home dose continued Physical Exam Narrative GENERAL: cooperative HEENT: Atraumatic; normocephalic EYES; Anicteric, Normal Conjunctiva NECK; supple, normal thyroid, RESPIRATORY: Diminished to auscultation CARDIOVASCULAR: Regular S1 S2, GI: soft, normoactive bowel sounds, : No Renal angle tenderness; EXTREMITIES: No edema, no clubbing, MUSCULOSKELETAL: no muscle wasting NEURO: Awake; no lateralizing signs. SKIN: No Rash PSYCH; Flat affect Weight / BMI Weight Weight: 70.6 kg Body Mass Index (BMI) 28.6 ABG / Lab / Microbiology Data 10/14/24 07:50 10/13/24 03:45 Laboratory: Laboratory Results - last 24 hr 10/13/24 11:38: POC Glucose 177 H 10/13/24 16:35: POC Glucose 248 H 10/13/24 23:03: POC Glucose 168 H 10/14/24 06:23: POC Glucose 191 H 10/14/24 07:50: WBC 7.0, RBC 3.28 L, Hgb 9.9 L, Hct 31.0 L, MCV 94.5, MCH 30.2, MCHC 31.9 L, RDW Std Deviation 59.5 H, RDW Coeff of Devante 17.1 H, Plt Count 254, MPV 10.3 Microbiology: Microbiology 10/10/24 23:22 Stool Enteric Bacteriology - Final D/C Instructions DC O2, CPAP, BIPAP Needs Home O2 Discharge instructions: No Meaningful Use Info Meaningful Use Meaningful Use Diagnoses (Choose all that apply): None applicable Discharge Plan Admission Admit Date/Time: 10/10/24 20:00 Attending Provider: Jack Olivia Primary Care Provider: Melchor Washington Consulting Providers: Cong Seals; Friend,Pankaj; Grecia Griffith Discharge Orders/Prescriptions Prescriptions: New amoxicillin-pot clavulanate 875-125 mg tablet 1 tab PO BID Qty: 20 0RF Continued warfarin 2 mg tablet 2 mg PO DAILY coenzyme Q10 [Co Q-10] 200 mg capsule 200 mg PO DAILY B Complex Plus Vitamin C 28-87-94-5-300 mg capsule 1 cap PO DAILY Rx Instructions: give with food (meal/snack) metoprolol succinate 25 mg tablet extended release 24 hr 25 mg PO DAILY levothyroxine 112 mcg tablet 112 mcg PO DAILY mecobalamin (vitamin B12) 10,000 mcg recon soln 10,000 mcg IM MONTHLY alcohol swabs [Alcohol Prep Pads] Pads, Medicated 1 pad topical DAILY Qty: 200 3RF atorvastatin 10 MG tablet 10 mg PO DAILY Patient Comments: CHOLESTEROL ergocalciferol (vitamin D2) 1,250 mcg (50,000 unit) capsule 50,000 unit PO MOWE Patient Comments: Supplement Lyumjev U-100 Insulin 100 unit/mL solution See Rx Instructions subcut DAILY Rx Instructions: sliding scale subcutaneously daily; Tylenol pm PO .HS PRN (Reason: sleep/pain) Patient Comments: 500 mg acetaminophen & 25 diphenhydramine (DME) Accu-Chek Guide test strips Strip See Rx Instructions .Route Qty: 100 11RF Rx Instructions: TID (DME) lancing device with lancets [Accu-Chek FastClix Lancing Dev] Kit See Rx Instructions .Route Qty: 100 11RF Rx Instructions: TID Discontinued valsartan 80 mg tablet 80 mg PO DAILY Patient Comments: Blood Pressure Referrals / Follow Up: Melchor Washington DO [Primary Care Provider] - Within 2 Weeks Disposition Disposition (needs filled in before D/C Order can be placed): Home, Self Care Charges/Coding Visit Charges Inpatient E&M: 83912 Disch Hosp >30min
[2024-10-14 08:30] LABS: Prothrombin Time (Protime)PT. 25.4 SECONDS (11.7-14.9)
--- NOTE | 2024-10-14 09:15 | CASEMGMT ---
Pt has an order for DC placed. JORGE CM to the pt room at this time. Pt states that she still feels safe returning home today with her and denies any additional questions, needs, or concerns.
[2024-10-14 09:19] LABS: Anion Gap 16 (5-15); BUN 18 mg/dL (4-19); BUN/Creat Ratio 16.1 RATIO (10-20); Calcium,Total 8.2 mg/dL (7.6-11.0); Carbon Dioxide 17.8 mmol/L (21.0-32.0); Chloride 106 mmol/L (98-108); Estimated Creatinine Clearance 33.90 ml/min (50-250); Glucose 223 mg/dL (70-99); Potassium 4.4 mmol/L (3.3-5.1)
--- NOTE | 2024-10-14 09:53 | PHA.DC.MC.R ---
Pharmacy [facility] Counseling Pharmacy Service has performed discharge medication reconciliation and counseling for this patient. 1. AUGMENTIN 875MG PO BID X 10 DAYS 2. STOP VALSARTAN The patient's discharge medication list was reviewed for discrepancies and discrepancies were resolved. The patient was counseled on the following discharge medications and changes in medications for homegoing were reviewed. The Reason for Use, instructions for use, and potential side effects were reviewed for all new medications. The patient's questions regarding all of their medications were answered. The patient was able to verbally demonstrate an understanding of their discharge medications. Medications at Discharge Home Medications atorvastatin 10 mg tablet 10 mg PO DAILY 04/07/16 coenzyme Q10 200 mg capsule (Co Q-10) 200 mg PO DAILY 08/21/19 vitamin B comp and C no.3 15 mg-10 mg-50 mg-5 mg-300 mg capsule (B Complex Plus Vitamin C) 1 cap PO DAILY 08/21/19 levothyroxine 112 mcg tablet 112 mcg PO DAILY 10/28/20 ergocalciferol (vitamin D2) 1,250 mcg (50,000 unit) capsule 50,000 unit PO MOWE 01/16/22 blood sugar diagnostic (Accu-Chek Guide test strips) #100 ea 05/04/22 lancing device with lancets kit (Accu-Chek FastClix Lancing Device kit) #100 ea 05/04/22 mecobalamin (vitamin B12) 10,000 mcg solution for injection 10,000 mcg IM MONTHLY 09/18/22 alcohol swabs (Alcohol Prep Pads) 1 pad topical DAILY #200 ea 03/19/23 warfarin 2 mg tablet 2 mg PO DAILY 03/19/23 metoprolol succinate 25 mg tablet,extended release 24 hr 25 mg PO DAILY 09/25/23 Tylenol pm PO .HS PRN sleep/pain 10/10/24 insulin lispro-aabc 100 unit/mL subcutaneous solution (Lyumjev U-100 Insulin) See Rx Instructions subcut DAILY 10/10/24 amoxicillin 875 mg-potassium clavulanate 125 mg tablet 1 tab PO BID #20 tabs 10/14/24
[2024-10-14 10:33] VITALS: BP 113/71; PULSE 93
[2024-10-14] MEDS: Metoprolol(XL)Succ 25 MG Tablet PO (10:33)
[2024-10-14 10:45] VITALS: BP 113/71; PULSE 93; RESP 16; TEMP 36.6; O2SAT 98
[2024-10-14 12:20] VITALS: BP 113/71; PULSE 93; RESP 16; TEMP 36.6; O2SAT 98
[2024-10-15 16:09] LABS: Albumin 2.5 g/dL (2.9-4.4); Gamma Globulin 0.9 g/dL (0.4-1.8); Immunoglobulin A 181 mg/dL (64-422); Immunoglobulin G 835 mg/dL (586-1602); Immunoglobulin M 166 mg/dL (26-217); PROEL- TOTAL PROTEIN 5.2 g/dL (6.0-8.5)
== END 2024-10-14 13:06 | disposition home or self-care (01) | DRG 395 ==
LOC: ED 19:41 → MS3 20:07
PROVIDERS: Anesthesiology; Internal Medicine; Internal Medicine Gastroenterology; Admitting Provider Hospitalist; Emergency Provider Emergency Medicine; PCP Student in an Organized Health Care Education/Training Program; Visit Provider Internal Medicine
PROC: 0DJD8ZZ Inspection of Lower Intestinal Tract, Via Natural or Artificial Opening Endoscopic (ICD-10-PCS; CPT 45378; principal; 2024-10-13 14:25)
DX: K55.051 Focal (segmental) acute (reversible) ischemia of intestine, part unspecified (principal); D63.8 Anemia in other chronic diseases classified elsewhere; E10.9 Type 1 diabetes mellitus without complications; E03.9 Hypothyroidism, unspecified; I10 Essential (primary) hypertension; K57.30 Diverticulosis of large intestine without perforation or abscess without bleeding; E78.2 Mixed hyperlipidemia; R79.1 Abnormal coagulation profile; Z90.49 Acquired absence of other specified parts of digestive tract; Z96.41 Presence of insulin pump (external) (internal); Z79.01 Long term (current) use of anticoagulants; Z79.890 Hormone replacement therapy; Z79.899 Other long term (current) drug therapy; Z85.89 Personal history of malignant neoplasm of other organs and systems; Z86.718 Personal history of other venous thrombosis and embolism; Z87.891 Personal history of nicotine dependence
CPT/HCPCS: 36591; 74174; 80048; 80053; 81001; 82784; 82962; 83036; 83605; 83690; 84165; 84443; 85025; 85027; 85610; 85652; 86140; 86304; 86334; 87506; 88305; 88342; 93005; 94668; 97116; 97161; 97166; 97530; 97802; 99285; Q9967; A4216; J2405

== ENCOUNTER 2025-01-05 13:00 | Outpatient (RCR) | payer MEDICARE, SELFPAY ==
--- NOTE | 2024-12-11 15:37 | HP.PTEVAL_ITS ---
Patient's Visit Information Visit Information Visit Information: ALMA AZUL is a 84 year old F referred to Physical Therapy by Dr. Melchor Washington DO with a diagnosis of MUSCLE WEAKNESS. Date of Evaluation: 12/11/24 Physical Therapist: Viola Hand, PT, Cert MDT Visit Plan Frequency: 2x /Week Duration: 4-6 Weeks Plan: PT FOR LOWER BODY: LE ROM, STRETCHING AND STRENGTHENING. REVIEW HEP FIRST VISIT AND ADD APPROPRIATE WITH PICTURES. PATIENT HAS ALREADY BEEN WORKING ON HEP AND WOULD LIKE TO TRY TO PROGRESS TO GYM MACHINES IF ABLE SAFELY. GAIT AND BALANCE TRAINING ON LEVEL SURFACES AND UP/DOWN STEPS. 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 Present symptoms: INTERMITTENT SPINE PAIN IN NECK AND BACK. ALSO INTERMITTENT MAGALI SHLD, HIP AND KNEE PAIN. WEAKNESS IN LEGS BUT NO RECENT FALLS. NOT USING ANY AD'S. Present since: BEGINNING OCTOBER 2024. Pain Scale: WORST 7-8/10, LEAST 0/10 Currently: 0/10 Is it getting better, worse or staying the same: GETTING BETTER. GETTING STRONGER. Commenced as a result of: Colitis Symptoms at onset: SEVERE ABDOMINAL PAIN AND UNABLE TO WALK - HOSPITAL ADMISSION BEGINNING OF OCT 2024 Worse: OVER-DOING IT WITH TOO MUCH STANDING, TOO MUCH WALKING. LAUNDRY IS IN THE BASEMENT - ONE MAKES IT DOWN TO THE BASEMENT HAS TO STAY DOWN THERE UNTIL IT IS DOWN THEN KIDS BRING THE LAUNDRY BACK UP FOR HER. HAS TO DO WORK ON THE COMPUTER AND CAN ONLY DO SO MUCH BEFORE GETS TOO TIRED TO DO MORE. NOT SLEEPING WELL. Better: TAKING MORE BREAKS FROM SITTING, DOING SOME EX'S IN SITTING, JUST STARTING TO MOVE MORE IN GENERAL. Disturbed sleep: YES - RELATES IT TO WORRY ABOUT HUSBANDS SLEEP APNEA AND WORRY ABOUT ALL THE THINGS SHE HAS TO DO IN GENERAL. STATES THAT SOME NIGHTS SHE CAN NOT SLEEP AT ALL BUT LAST NIGHT DID SLEEP GOOD. Previous history/Previous treatment: PT IN PAST FOR SHLD AND WRIST AND LEG FX. EX CLASSES 2X'S. HERE AT [facility] PRIOR TO COVID. Treatment this episode: HOSPITALIZATION X 5 DAYS FOR COLITIS IN OCT. Coughing/sneezing/straining: NEGATIVE FOR INCREASED PAIN. Bowel or Bladder Dysfunction: LEAKY BLADDER. DENIES BOWEL INCONTINENCE. Unexplained weight loss: WEIGHT IS STEADY NOW. PMH/Recent major surgery: 1. Colitis 2. Essential hypertension 3. History of DVT 4.. History of recurrent peritoneal cancer 5. Type 1 diabetes mellitus on insulin pump 6. Anemia 7. Dyslipidemia 8. Hypothyroidism H/O R SHLD RCR AND R HUMERUS FX Objective Objective: THIS PATIENT AMBULATES INDEP'LY INTO PT FROM LOBBY TO TREATMENT ROOM WITH DECREASED SHUFFLE TYPE GAIT PATTERN, INCREASED TRUNK FLEXION AND DECREASED MAGALI TRUNK ROTATION/ARM SWING. SHE IS PLEASANT AND COOPERATIVE TO WORK WITH AND A GOOD HISTORIAN. SHE FOLLOWS COMMANDS WELL. Sensory deficit: MAGALI LE LIGHT TOUCH SENSATION IS GROSSLY INTACT ROM deficit: MAGALI LE HIP FLEXOR, HS AND CALF TIGHTNESS. Motor deficit: MAGALI LE'S GROSSLY 4/5 WITH MMT'ING. Lumbar mvmt loss: flex - MIN ext - CAMILA B SG - MOD Core strength: FAIR TUG TIME: 22.38" WITHOUT AD. INDEP. 30" STS TEST: 5 REPS WITH ONE UE ASSIST. INDEP Balance/Special Test Scores Lower Extremity Functional Score: 27 Goals Goal 1:: PATIENT WILL COMPLETE 12 STANDS WITH HANDS ON KNEES IN 30 SECS TO DEMONSTRATE IMPROVED FUNCTIONAL STRENGTH Goal Time Frame: 6-8 Weeks Goal 2:: PATIENT WILL COMPLETE TUG IN < 10 SECS WITHOUT AD INDEP'LY AND SAFELY TO DEMONSTRATE IMPROVED GAIT STABILITY Goal Time Frame: 4-6 Weeks Goal 3:: PATIENT WILL BE ABLE TO NEGOTIATE STEPS WITH 1 HR WITH RECIPROCAL AISHA HARLAN WITHOUT LIMITATIONS. Goal Time Frame: 4-6 Weeks Goal 4:: PATIENT WILL BE INDEP WITH [employer] [facility] AND [facility] FOR CONTINUED IMPROVEMENT ONCE FORMAL PHYSICAL THERAPY CONCLUDES. Goal Time Frame: 6-8 Weeks Rehabilitation Potential Physical Therapy Diagnosis: CORE AND LE WEAKNESS AND STIFFNESS WITH DECREASED ENDURANCE AND ADL TOLERANCE WITH HOSPITAL ADMIT IN OCT 2024. Rehabilitation Potential: Good Anticipated Interventions Patient/Client Instruction: Educate patient on: Condition, Plan of Care and Risk Factors For the Purpose of:: To improve self management Therapeutic Exercise to Include: Strength training, Flexibilty training and Gait and locomotor training For the Purpose of:: To decrease pain, To increase ROM, To improve muscle performance and motor function, To improve ability to perform ADL's, To increase tolerance to activity/condition/position, To improve performance and independence with ADL's, To improve ability of physical actions for home/community/work/leisure, To improve gait and locomotor functions, To increase flexibility/ROM and To improve self management Text: Thank you for the opportunity to evaluate your patient. For Medicare and Medicare HMO plans, please review the plan of care and approve it. It will need to be FAXED BACK to us at [phone] for Medicare purposes. For Medicare only, by signing this I certify the plan of care. Please let me know if there are questions or concerns regarding this plan of care. Physician Signature: Date:
--- NOTE | 2025-01-05 13:46 | HP.PTDCSUM_ITS ---
Discharge Summary D/C summary: It has been my pleasure to treat ALMA AZUL referred by Dr. Melchor Washington DO, with the diagnosis of MUSCLE WEAKNESS for a total of 7 visit(s). Discharge Date: 01/05/25 Please see the following information for a summary of their discharge status. Subjective Subjective: PATIENT REPORTS SHE HAD F/U WITH DR. WASHINGTON ABOUT A WEEK AGO AND SHE IS MEDICALLY SLOWLY GETTING BETTER. SHE REPORTS SHE IS BACK TO EATING NEAR NORMAL AND HER BOWEL MVMTS ARE GETTING BACK TO NORMAL. SHE REPORTS HER PAIN IS GETTING BETTER. SHE STATES SHE IS STILL GETTING NECK AND BACK PAIN ESPECIALLY IF SHE DOES TOO MUCH. SHE PLANS TO START CHAIR [place] ON . SHE WANTS TO STOP PT AND ALSO PLANS TO DO ALEENA [facility]I DAILY. SHE STATES REPORTS COMPLIANCE WITH HER HEP AND STATES SHE IS ASTONISHED HOW MUCH SITTING WITH SUPPORT IN HER LOW BACK HELPS. "I CAN GET ALONG WITHOUT PT NOW ESPECIALLY WITH THE HOME EX'S, THE MACHINES AND CLASSES. ANY IMPROVEMENT IS ENJOYABLE BECAUSE I CAN DO A LITTLE MORE". Pain LBP: Pain Intensity (Out of 10): 0 Neck: Pain Intensity (Out of 10): 0 Overall Improvement % Improvement: 50 Objective Objective/Function: PATIENT WAS SEEN TODAY FOR RE-ASSESSMENT OF PROGRESS TOWARD THE SET PT GOALS AND THE NEED FOR FURTHER PHYSICAL THERAPY VS READINESS FOR DISCHARGE. UPON EXAM TODAY: TUG TIME: 11.76" WITHOUT AD. INDEP. 30" STS TEST: 11 REPS WITH ONE UE ASSIST. INDEP STEPS: RECIPROCALLY ASCENDS AND DESCENDS WITH ONE HR. Goals Goal 1:: PATIENT WILL COMPLETE 12 STANDS WITH HANDS ON KNEES IN 30 SECS TO DEMONSTRATE IMPROVED FUNCTIONAL STRENGTH Goal Progress: Progressing Goal 2:: PATIENT WILL COMPLETE TUG IN < 10 SECS WITHOUT AD INDEP'LY AND SAFELY TO DEMONSTRATE IMPROVED GAIT STABILITY Goal Progress: Progressing Goal 3:: PATIENT WILL BE ABLE TO NEGOTIATE STEPS WITH 1 HR WITH RECIPROCAL PATTERN WITHOUT LIMITATIONS. Goal Progress: Goal Met Goal 4:: PATIENT WILL BE INDEP WITH [employer] [facility] AND [facility] FOR CONTINUED IMPROVEMENT ONCE FORMAL PHYSICAL THERAPY CONCLUDES. Goal Progress: Goal Met Plan Plan: D/C TO INDEP EX D/C Information d/c sentence: If there are questions or concerns regarding this patient's physical therapy, please feel free to call me at [phone]. Thank you for the referral of this patient. Sincerely, Viola Hand, PT, Cert MDT Balance/Gait/Functional tests Balance/Special Test Scores Lower Extremity Functional Score: 62 Improvement % Improvement: 50
== END 2025-01-05 14:44 | disposition home or self-care (01) ==
LOC: PT 13:00
PROVIDERS: PCP Student in an Organized Health Care Education/Training Program; Visit Provider Student in an Organized Health Care Education/Training Program
DX: M62.81 Muscle weakness (generalized) (principal)
CPT/HCPCS: 97110; 97162; 97530